=== PATIENT | male | born 1940 | race Caucasian/White ===

== ENCOUNTER 2020-07-27 07:06 | Outpatient (REF) | payer MEDICARE, BC, SELFPAY ==
[2020-07-27 10:42] LABS: MANUAL DIFF FLAG NO
[2020-07-27 10:44] LABS: Basophils Percent Auto 0.5 % (0-2); Eosinophils Absolute Auto 0.1 X10*3/uL (0.0-0.4); Eosinophils Percent Auto 0.9 % (0-4); Hematocrit 37.5 % (42-52); Hemoglobin 12.4 g/dl (14.0-18.0); Imm Gran Abs Auto 0.02 X10*3/uL (0.00-0.03); Imm Gran Pct Auto 0.4 % (0.0-0.4); Lymphocytes Absolute Auto 1.2 X10*3/uL (1.2-4.9); Lymphocytes Percent Auto 22.1 % (20-40); Mean Corpuscular HGB Conc 33.1 g/dl (31.0-36.0); Mean Corpuscular Hemoglobin 31.6 pg (27.0-33.0); Mean Corpuscular Volume 95.7 fL (80-98); Mean Platelet Volume 10.2 fL (9.4-12.4); Monocytes Absolute Auto 0.5 X10*3/uL (0.1-1.2); Monocytes Percent Auto 9.1 % (2-11); Neutrophils Absolute Auto 3.8 X10*3/uL (2.0-8.3); Platelet Count 250 X10*3/uL (160-400); Red Blood Count 3.92 X10*6/uL (4.60-5.80); White Blood Count 5.6 X10*3/uL (4.8-10.8)
[2020-07-27 11:31] LABS: Alanine Aminotransferase 43 U/L (0-40); Albumin Level 4.3 g/dL (3.5-5.0); Alkaline Phosphatase 96 U/L (39-117); Anion Gap 15 (12-20); Aspartate Amino Transferase 26 U/L (5-37); Bilirubin Total 0.5 mg/dL (0.0-1.0); Blood Urea Nitrogen 21 mg/dL (9-16); Calcium 8.9 mg/dL (8.4-10.2); Carbon Dioxide 23 mmol/L (22-29); Chloride 107 mmol/L (96-108); Estimated Glomerular Filt Rate > 60; Glucose Random 133 mg/dL (60-115); Potassium 4.4 mmol/l (3.3-5.1); Sodium 141 mmol/L (135-145); Total Protein 6.9 g/dL (6.5-8.0)
[2020-07-27 11:54] LABS: Prostate Specific Antigen 18.93 ng/mL (<0.05-4.0)
== END 2020-07-27 07:07 | disposition home or self-care (01) ==
LOC: HO.LHD 07:06
PROVIDERS: Visit Provider Internal Medicine Medical Oncology
DX: C61 Malignant neoplasm of prostate (principal); C79.51 Secondary malignant neoplasm of bone
CPT/HCPCS: 36415; 80053; 84153; 85025

== ENCOUNTER → 2020-07-28 08:20 | Outpatient (BNV) | payer MEDICARE, BC, SELFPAY | PROVIDERS: PCP Internal Medicine; Visit Provider Internal Medicine | DX: C61 Malignant neoplasm of prostate (principal); C79.31 Secondary malignant neoplasm of brain; C79.51 Secondary malignant neoplasm of bone | CPT/HCPCS: 99212; 99214; 99215 ==

== ENCOUNTER 2020-08-31 | Outpatient (REF) | payer MEDICARE, BC, SELFPAY ==
[2020-08-31 10:51] LABS: MANUAL DIFF FLAG NO
[2020-08-31 11:00] LABS: Basophils Percent Auto 0.5 % (0-2); Eosinophils Absolute Auto 0.1 X10*3/uL (0.0-0.4); Eosinophils Percent Auto 0.9 % (0-4); Hematocrit 39.4 % (42-52); Hemoglobin 12.6 g/dl (14.0-18.0); Imm Gran Abs Auto 0.02 X10*3/uL (0.00-0.03); Imm Gran Pct Auto 0.4 % (0.0-0.4); Lymphocytes Absolute Auto 1.2 X10*3/uL (1.2-4.9); Lymphocytes Percent Auto 21.8 % (20-40); Mean Corpuscular Volume 96.8 fL (80-98); Mean Platelet Volume 9.6 fL (9.4-12.4); Monocytes Absolute Auto 0.5 X10*3/uL (0.1-1.2); Monocytes Percent Auto 8.7 % (2-11); Neutrophils Absolute Auto 3.7 X10*3/uL (2.0-8.3); Neutrophils Percent Auto 67.7 % (45-73); Platelet Count 252 X10*3/uL (160-400); Red Blood Count 4.07 X10*6/uL (4.60-5.80); Red Cell Distribution Width 14.7 % (11.0-16.0); White Blood Count 5.5 X10*3/uL (4.8-10.8)
[2020-08-31 11:25] LABS: Anion Gap 17 (12-20); Blood Urea Nitrogen 19 mg/dL (9-16); Calcium 9.5 mg/dL (8.4-10.2); Carbon Dioxide 25 mmol/L (22-29); Chloride 105 mmol/L (96-108); Estimated Glomerular Filt Rate > 60; Glucose Random 173 mg/dL (60-115); Potassium 4.6 mmol/l (3.3-5.1); Sodium 142 mmol/L (135-145)
[2020-08-31 11:55] LABS: Prostate Specific Antigen 27.35 ng/mL (<0.05-4.0)
== END 2020-08-31 00:01 | disposition home or self-care (01) ==
LOC: HO.LHD
PROVIDERS: Visit Provider Internal Medicine Medical Oncology
DX: C61 Malignant neoplasm of prostate (principal)
CPT/HCPCS: 36415; 80048; 84153; 85025

== ENCOUNTER 2020-09-11 08:33 | Outpatient (REF) | payer MEDICARE, BC, SELFPAY ==
--- NOTE | 2020-09-11 10:24 | XR_ITS ---
EXAMINATION: XR KNEE AP STANDING CLINICAL INFORMATION: Bilateral knee pain. COMPARISON: None TECHNIQUE: AP bilateral standing view of the knees was obtained. FINDINGS: There is mild reduction in bilateral medial compartment joint space. The lateral compartment joint space is normal. No loose bodies, fracture or soft tissue swelling seen. XR/XR knee standing BI IMPRESSION: Mild degenerative changes medial compartment both knees.
== END 2020-09-11 08:34 | disposition home or self-care (01) ==
LOC: HO.HOSX 08:33
PROVIDERS: Visit Provider Orthopaedic Surgery
DX: M25.562 Pain in left knee (principal); M25.561 Pain in right knee; M25.461 Effusion, right knee
CPT/HCPCS: 73565; 99202

== ENCOUNTER → 2020-09-16 09:35 | Outpatient (BNVA) | payer MEDICARE, BC, SELFPAY | PROVIDERS: PCP Internal Medicine; Visit Provider Internal Medicine | DX: I35.1 Nonrheumatic aortic (valve) insufficiency (principal); I77.810 Thoracic aortic ectasia; C61 Malignant neoplasm of prostate; C79.51 Secondary malignant neoplasm of bone | CPT/HCPCS: 99212 ==

== ENCOUNTER 2020-09-28 08:15 | Outpatient (REF) | payer MEDICARE, BC, SELFPAY ==
[2020-09-28 11:38] LABS: MANUAL DIFF FLAG NO
[2020-09-28 11:46] LABS: Basophils Percent Auto 0.6 % (0-2); Eosinophils Percent Auto 0.2 % (0-4); Hematocrit 38.4 % (42-52); Hemoglobin 12.1 g/dl (14.0-18.0); Imm Gran Abs Auto 0.05 X10*3/uL (0.00-0.03); Imm Gran Pct Auto 0.8 % (0.0-0.4); Lymphocytes Absolute Auto 1.2 X10*3/uL (1.2-4.9); Lymphocytes Percent Auto 18.8 % (20-40); Mean Corpuscular HGB Conc 31.5 g/dl (31.0-36.0); Mean Corpuscular Hemoglobin 30.8 pg (27.0-33.0); Mean Corpuscular Volume 97.7 fL (80-98); Mean Platelet Volume 9.4 fL (9.4-12.4); Monocytes Absolute Auto 0.5 X10*3/uL (0.1-1.2); Monocytes Percent Auto 8.3 % (2-11); Neutrophils Absolute Auto 4.5 X10*3/uL (2.0-8.3); Neutrophils Percent Auto 71.3 % (45-73); Platelet Count 306 X10*3/uL (160-400); Red Blood Count 3.93 X10*6/uL (4.60-5.80); Red Cell Distribution Width 14.6 % (11.0-16.0); White Blood Count 6.3 X10*3/uL (4.8-10.8)
[2020-09-28 12:15] LABS: Alanine Aminotransferase 44 U/L (0-40); Albumin Level 4.4 g/dL (3.5-5.0); Alkaline Phosphatase 95 U/L (39-117); Anion Gap 15 (12-20); Aspartate Amino Transferase 23 U/L (5-37); Bilirubin Total 0.5 mg/dL (0.0-1.0); Blood Urea Nitrogen 24 mg/dL (9-16); Calcium 9.5 mg/dL (8.4-10.2); Carbon Dioxide 27 mmol/L (22-29); Chloride 105 mmol/L (96-108); Estimated Glomerular Filt Rate 59; Glucose Random 153 mg/dL (60-115); Potassium 4.8 mmol/l (3.3-5.1); Sodium 142 mmol/L (135-145); Total Protein 6.9 g/dL (6.5-8.0)
[2020-09-28 12:39] LABS: Prostate Specific Antigen 27.14 ng/mL (<0.05-4.0)
== END 2020-09-28 08:16 | disposition home or self-care (01) ==
LOC: HO.LHD 08:15
PROVIDERS: Visit Provider Internal Medicine
DX: C79.82 Secondary malignant neoplasm of genital organs (principal)
CPT/HCPCS: 36415; 80053; 84153; 85025

== ENCOUNTER 2020-10-20 05:03 | Outpatient (REF) | payer MEDICARE, BC, SELFPAY ==
[2020-10-20 09:44] LABS: MANUAL DIFF FLAG NO
[2020-10-20 09:51] LABS: Basophils Percent Auto 0.5 % (0-2); Eosinophils Absolute Auto 0.1 X10*3/uL (0.0-0.4); Eosinophils Percent Auto 2.9 % (0-4); Hematocrit 37.2 % (42-52); Hemoglobin 11.9 g/dl (14.0-18.0); Imm Gran Abs Auto 0.03 X10*3/uL (0.00-0.03); Imm Gran Pct Auto 0.7 % (0.0-0.4); Lymphocytes Percent Auto 24.3 % (20-40); Mean Corpuscular Hemoglobin 31.1 pg (27.0-33.0); Mean Corpuscular Volume 97.1 fL (80-98); Mean Platelet Volume 9.5 fL (9.4-12.4); Monocytes Absolute Auto 0.3 X10*3/uL (0.1-1.2); Monocytes Percent Auto 6.1 % (2-11); Neutrophils Absolute Auto 2.7 X10*3/uL (2.0-8.3); Neutrophils Percent Auto 65.5 % (45-73); Platelet Count 265 X10*3/uL (160-400); Red Blood Count 3.83 X10*6/uL (4.60-5.80); Red Cell Distribution Width 14.4 % (11.0-16.0); White Blood Count 4.1 X10*3/uL (4.8-10.8)
[2020-10-20 10:24] LABS: Alanine Aminotransferase 38 U/L (0-40); Albumin Level 4.3 g/dL (3.5-5.0); Alkaline Phosphatase 102 U/L (39-117); Anion Gap 12 (12-20); Aspartate Amino Transferase 22 U/L (5-37); Bilirubin Total 0.6 mg/dL (0.0-1.0); Blood Urea Nitrogen 20 mg/dL (9-16); Calcium 8.8 mg/dL (8.4-10.2); Carbon Dioxide 27 mmol/L (22-29); Chloride 106 mmol/L (96-108); Estimated Glomerular Filt Rate > 60; Glucose Random 174 mg/dL (60-115); Sodium 141 mmol/L (135-145); Total Protein 6.5 g/dL (6.5-8.0)
[2020-10-20 11:15] LABS: Prostate Specific Antigen 17.63 ng/mL (<0.05-4.0)
== END 2020-10-20 05:04 | disposition home or self-care (01) ==
LOC: HO.LHD 05:03
PROVIDERS: Visit Provider Internal Medicine
DX: C61 Malignant neoplasm of prostate (principal); Z12.5 Encounter for screening for malignant neoplasm of prostate
CPT/HCPCS: 36415; 80053; 84153; 85025

== ENCOUNTER 2020-11-10 00:52 | Outpatient (REF) | payer MEDICARE, BC, SELFPAY ==
[2020-11-10 10:42] LABS: MANUAL DIFF FLAG NO
[2020-11-10 10:49] LABS: Basophils Percent Auto 0.7 % (0-2); Eosinophils Absolute Auto 0.1 X10*3/uL (0.0-0.4); Eosinophils Percent Auto 2.8 % (0-4); Hematocrit 38.6 % (42-52); Hemoglobin 12.6 g/dl (14.0-18.0); Imm Gran Abs Auto 0.03 X10*3/uL (0.00-0.03); Imm Gran Pct Auto 0.7 % (0.0-0.4); Lymphocytes Absolute Auto 1.1 X10*3/uL (1.2-4.9); Lymphocytes Percent Auto 25.8 % (20-40); Mean Corpuscular HGB Conc 32.6 g/dl (31.0-36.0); Mean Corpuscular Hemoglobin 31.3 pg (27.0-33.0); Mean Corpuscular Volume 95.8 fL (80-98); Mean Platelet Volume 9.6 fL (9.4-12.4); Monocytes Absolute Auto 0.3 X10*3/uL (0.1-1.2); Monocytes Percent Auto 7.5 % (2-11); Neutrophils Absolute Auto 2.7 X10*3/uL (2.0-8.3); Neutrophils Percent Auto 62.5 % (45-73); Platelet Count 300 X10*3/uL (160-400); Red Blood Count 4.03 X10*6/uL (4.60-5.80); Red Cell Distribution Width 14.2 % (11.0-16.0); White Blood Count 4.3 X10*3/uL (4.8-10.8)
[2020-11-10 11:15] LABS: Alanine Aminotransferase 40 U/L (0-40); Albumin Level 4.3 g/dL (3.5-5.0); Alkaline Phosphatase 107 U/L (39-117); Anion Gap 13 (12-20); Aspartate Amino Transferase 25 U/L (5-37); Bilirubin Total 0.6 mg/dL (0.0-1.0); Blood Urea Nitrogen 19 mg/dL (9-16); Calcium 8.7 mg/dL (8.4-10.2); Carbon Dioxide 25 mmol/L (22-29); Chloride 106 mmol/L (96-108); Estimated Glomerular Filt Rate > 60; Glucose Random 148 mg/dL (60-115); Potassium 4.3 mmol/L (3.3-5.1); Sodium 140 mmol/L (135-145); Total Protein 6.5 g/dL (6.5-8.0)
[2020-11-10 11:39] LABS: Prostate Specific Antigen 17.79 ng/mL (<0.05-4.0)
== END 2020-11-10 00:53 | disposition home or self-care (01) ==
LOC: HO.LHD 00:52
PROVIDERS: Visit Provider Internal Medicine
DX: C61 Malignant neoplasm of prostate (principal); Z12.5 Encounter for screening for malignant neoplasm of prostate
CPT/HCPCS: 36415; 80053; 84153; 85025

== ENCOUNTER 2020-12-14 07:18 | Outpatient (REF) | payer MEDICARE, BC, SELFPAY ==
[2020-12-14 10:55] LABS: MANUAL DIFF FLAG NO
[2020-12-14 10:59] LABS: Basophils Percent Auto 0.8 % (0-2); Eosinophils Absolute Auto 0.2 X10*3/uL (0.0-0.4); Eosinophils Percent Auto 3.1 % (0-4); Hematocrit 39.5 % (42-52); Hemoglobin 12.7 g/dl (14.0-18.0); Imm Gran Abs Auto 0.03 X10*3/uL (0.00-0.03); Imm Gran Pct Auto 0.6 % (0.0-0.4); Lymphocytes Absolute Auto 1.5 X10*3/uL (1.2-4.9); Lymphocytes Percent Auto 30.8 % (20-40); Mean Corpuscular HGB Conc 32.2 g/dl (31.0-36.0); Mean Corpuscular Hemoglobin 31.2 pg (27.0-33.0); Mean Corpuscular Volume 97.1 fL (80-98); Mean Platelet Volume 9.9 fL (9.4-12.4); Monocytes Absolute Auto 0.4 X10*3/uL (0.1-1.2); Monocytes Percent Auto 8.9 % (2-11); Neutrophils Absolute Auto 2.7 X10*3/uL (2.0-8.3); Neutrophils Percent Auto 55.8 % (45-73); Platelet Count 309 X10*3/uL (160-400); Red Blood Count 4.07 X10*6/uL (4.60-5.80); Red Cell Distribution Width 13.7 % (11.0-16.0); White Blood Count 4.8 X10*3/uL (4.8-10.8)
[2020-12-14 12:12] LABS: Alanine Aminotransferase 40 U/L (0-40); Albumin Level 4.3 g/dL (3.5-5.0); Alkaline Phosphatase 96 U/L (39-117); Anion Gap 17 (12-20); Aspartate Amino Transferase 28 U/L (5-37); Bilirubin Total 0.3 mg/dL (0.0-1.0); Blood Urea Nitrogen 19 mg/dL (9-16); Calcium 8.9 mg/dL (8.4-10.2); Carbon Dioxide 23 mmol/L (22-29); Chloride 107 mmol/L (96-108); Estimated Glomerular Filt Rate > 60; Glucose Random 161 mg/dL (60-115); Potassium 4.2 mmol/L (3.3-5.1); Sodium 143 mmol/L (135-145); Total Protein 6.8 g/dL (6.5-8.0)
== END 2020-12-14 07:19 | disposition home or self-care (01) ==
LOC: HO.LHD 07:18
PROVIDERS: Visit Provider Internal Medicine
DX: C79.82 Secondary malignant neoplasm of genital organs (principal)
CPT/HCPCS: 36415; 80053; 85025

== ENCOUNTER → 2020-12-18 11:16 | Outpatient (BNVA) | payer MEDICARE, BC, SELFPAY | PROVIDERS: PCP Internal Medicine; Visit Provider Internal Medicine Endocrinology, Diabetes & Metabolism | DX: Z13.89 Encounter for screening for other disorder (principal) | CPT/HCPCS: Q3014 ==

== ENCOUNTER 2020-12-24 07:10 | Outpatient (REF) | payer MEDICARE, BC, SELFPAY ==
[2020-12-24 11:35] LABS: MANUAL DIFF FLAG NO
[2020-12-24 11:45] LABS: Basophils Percent Auto 0.7 % (0-2); Eosinophils Absolute Auto 0.1 X10*3/uL (0.0-0.4); Eosinophils Percent Auto 2.5 % (0-4); Hemoglobin 12.5 g/dl (14.0-18.0); Imm Gran Abs Auto 0.03 X10*3/uL (0.00-0.03); Imm Gran Pct Auto 0.7 % (0.0-0.4); Lymphocytes Absolute Auto 1.3 X10*3/uL (1.2-4.9); Lymphocytes Percent Auto 30.7 % (20-40); Mean Corpuscular HGB Conc 32.1 g/dl (31.0-36.0); Mean Corpuscular Hemoglobin 30.9 pg (27.0-33.0); Mean Corpuscular Volume 96.5 fL (80-98); Mean Platelet Volume 9.9 fL (9.4-12.4); Monocytes Absolute Auto 0.4 X10*3/uL (0.1-1.2); Monocytes Percent Auto 8.3 % (2-11); Neutrophils Absolute Auto 2.5 X10*3/uL (2.0-8.3); Neutrophils Percent Auto 57.1 % (45-73); Platelet Count 282 X10*3/uL (160-400); Red Blood Count 4.04 X10*6/uL (4.60-5.80); Red Cell Distribution Width 13.6 % (11.0-16.0); White Blood Count 4.4 X10*3/uL (4.8-10.8)
[2020-12-24 12:20] LABS: Alanine Aminotransferase 45 U/L (0-40); Albumin Level 4.1 g/dL (3.5-5.0); Alkaline Phosphatase 85 U/L (39-117); Anion Gap 14 (12-20); Aspartate Amino Transferase 29 U/L (5-37); Bilirubin Total 0.4 mg/dL (0.0-1.0); Blood Urea Nitrogen 19 mg/dL (9-16); Calcium 8.4 mg/dL (8.4-10.2); Carbon Dioxide 24 mmol/L (22-29); Chloride 107 mmol/L (96-108); Estimated Glomerular Filt Rate > 60; Glucose Random 173 mg/dL (60-115); Potassium 4.4 mmol/L (3.3-5.1); Sodium 141 mmol/L (135-145); Total Protein 6.6 g/dL (6.5-8.0)
[2020-12-24 12:42] LABS: Free T4 (Free Thyroxine) 0.79 ng/dL (0.71-1.85); Thyroid Stimulating Hormone 4.62 uIU/mL (0.32-4.0)
== END 2020-12-24 07:11 | disposition home or self-care (01) ==
LOC: HO.LHD 07:10
PROVIDERS: Internal Medicine Endocrinology, Diabetes & Metabolism; Visit Provider Internal Medicine
DX: E03.9 Hypothyroidism, unspecified (principal); C61 Malignant neoplasm of prostate
CPT/HCPCS: 36415; 80053; 84439; 84443; 85025

== ENCOUNTER → 2021-01-13 10:07 | Outpatient (REF) | payer MEDICARE, BC, SELFPAY ==
--- NOTE | ~2021-01-13 | NM_ITS ---
EXAMINATION: NM BONE SCAN OF THE WHOLE BODY CLINICAL INFORMATION: Prostate cancer 2000 same, now with pain all over. Right shoulder pain. COMPARISON: The previous bone scan dated 05/26/2020 is available for comparison. Radiographs of the bilateral knees dated 09/11/2020, the chest dated 07/28/2020 and the right shoulder dated 07/28/2020 are available for comparison. TECHNIQUE: Multiple gamma scintillation camera images of the whole body were performed 3 hours following the intravenous administration of 32 mCi Tc-99m MDP. FINDINGS: In the head, no significant abnormalities are present. In the thoracic cage and upper extremities, multiple mildly to moderately intense abnormalities involving multiple ribs, extensive abnormalities in the sternum and medial clavicles bilaterally, a very prominent abnormality diffusely in the right humeral head, coracoid process of the left scapula, and a faint focus laterally in the left humeral head. In the spine, multiple foci of mildly increased activity are present throughout the thoracic and upper lumbar spine with the most prominent abnormality in the spinous process of L3. In the pelvis, mild abnormalities are present in multiple foci in the sacrum and both acetabula and probably diffusely in the left ischium. In the lower extremities, there is a small mild focus of increased activity in the medullary bone of the proximal right femoral shaft. Mildly increased activity is present in the medial compartment of the right knee, likely arthritic. No other definite bony abnormalities are noted. The urinary bladder and faint visualization of both kidneys are noted. Compared to the previous bone scan dated 05/26/2020, multiple new abnormalities are present in the ribs, sternum, and spine and has been a significant increase in size and intensity of the right humeral head lesion. A new abnormalities also present in the proximal shaft of the right femur and there are small new foci of mild intensity in the sacrum. NM/NM bone scan whole body IMPRESSION: Widespread metastatic tumor involvement of bone with progression in the bone scan appearance since 05/26/2020. The most severe abnormalities are in the right humeral head, sternum, and spine.
== END ==
LOC: HO.NUCMED 10:07
PROVIDERS: Visit Provider Internal Medicine
DX: C61 Malignant neoplasm of prostate (principal); C79.51 Secondary malignant neoplasm of bone
CPT/HCPCS: 78306; A9503

== ENCOUNTER 2021-01-21 00:31 | Outpatient (REF) | payer MEDICARE, BC, SELFPAY ==
[2021-01-21 09:54] LABS: MANUAL DIFF FLAG NO
[2021-01-21 09:59] LABS: Basophils Percent Auto 0.4 % (0-2); Eosinophils Absolute Auto 0.1 X10*3/uL (0.0-0.4); Eosinophils Percent Auto 2.1 % (0-4); Hematocrit 38.8 % (42-52); Hemoglobin 12.7 g/dl (14.0-18.0); Imm Gran Abs Auto 0.03 X10*3/uL (0.00-0.03); Imm Gran Pct Auto 0.6 % (0.0-0.4); Lymphocytes Absolute Auto 1.5 X10*3/uL (1.2-4.9); Mean Corpuscular HGB Conc 32.7 g/dl (31.0-36.0); Mean Corpuscular Hemoglobin 31.8 pg (27.0-33.0); Mean Platelet Volume 9.9 fL (9.4-12.4); Monocytes Absolute Auto 0.4 X10*3/uL (0.1-1.2); Monocytes Percent Auto 9.2 % (2-11); Neutrophils Absolute Auto 2.7 X10*3/uL (2.0-8.3); Neutrophils Percent Auto 55.7 % (45-73); Platelet Count 265 X10*3/uL (160-400); Red Cell Distribution Width 13.3 % (11.0-16.0); White Blood Count 4.8 X10*3/uL (4.8-10.8)
[2021-01-21 10:29] LABS: Alanine Aminotransferase 46 U/L (0-40); Albumin Level 4.2 g/dL (3.5-5.0); Alkaline Phosphatase 86 U/L (39-117); Anion Gap 13 (12-20); Aspartate Amino Transferase 27 U/L (5-37); Bilirubin Total 0.5 mg/dL (0.0-1.0); Blood Urea Nitrogen 22 mg/dL (9-16); Calcium 9.3 mg/dL (8.4-10.2); Carbon Dioxide 26 mmol/L (22-29); Chloride 107 mmol/L (96-108); Estimated Glomerular Filt Rate > 60; Glucose Random 150 mg/dL (60-115); Potassium 4.4 mmol/L (3.3-5.1); Sodium 142 mmol/L (135-145); Total Protein 6.5 g/dL (6.5-8.0)
[2021-01-21 10:56] LABS: Prostate Specific Antigen 17.29 ng/mL (<0.05-4.0)
== END 2021-01-21 00:32 | disposition home or self-care (01) ==
LOC: HO.LHD 00:31
PROVIDERS: Visit Provider Internal Medicine
DX: C61 Malignant neoplasm of prostate (principal)
CPT/HCPCS: 36415; 80053; 84153; 85025

== ENCOUNTER 2021-02-15 11:44 | Outpatient (REF) | payer MEDICARE, BC, SELFPAY | END 2021-02-15 11:45 | disposition home or self-care (01) | LOC: HO.HOSX 11:44 | PROVIDERS: Visit Provider Orthopaedic Surgery | DX: M25.561 Pain in right knee (principal); E78.00 Pure hypercholesterolemia, unspecified; E03.9 Hypothyroidism, unspecified; K62.7 Radiation proctitis; C61 Malignant neoplasm of prostate; C79.51 Secondary malignant neoplasm of bone; Z87.891 Personal history of nicotine dependence | CPT/HCPCS: 20610; 99212; J1100 ==

== ENCOUNTER 2021-02-18 01:08 | Outpatient (REF) | payer MEDICARE, BC, SELFPAY ==
[2021-02-18 11:10] LABS: MANUAL DIFF FLAG NO
[2021-02-18 11:23] LABS: Basophils Percent Auto 0.5 % (0-2); Eosinophils Absolute Auto 0.1 X10*3/uL (0.0-0.4); Hematocrit 39.3 % (42-52); Hemoglobin 12.7 g/dl (14.0-18.0); Imm Gran Abs Auto 0.06 X10*3/uL (0.00-0.03); Lymphocytes Absolute Auto 2.1 X10*3/uL (1.2-4.9); Lymphocytes Percent Auto 34.8 % (20-40); Mean Corpuscular HGB Conc 32.3 g/dl (31.0-36.0); Mean Corpuscular Hemoglobin 31.8 pg (27.0-33.0); Mean Corpuscular Volume 98.3 fL (80-98); Mean Platelet Volume 9.6 fL (9.4-12.4); Monocytes Absolute Auto 0.5 X10*3/uL (0.1-1.2); Monocytes Percent Auto 8.5 % (2-11); Neutrophils Absolute Auto 3.1 X10*3/uL (2.0-8.3); Neutrophils Percent Auto 53.2 % (45-73); Platelet Count 334 X10*3/uL (160-400); Red Cell Distribution Width 13.4 % (11.0-16.0); White Blood Count 5.9 X10*3/uL (4.8-10.8)
[2021-02-18 11:39] LABS: Alanine Aminotransferase 77 U/L (0-40); Albumin Level 4.2 g/dL (3.5-5.0); Alkaline Phosphatase 87 U/L (39-117); Anion Gap 16 (12-20); Aspartate Amino Transferase 52 U/L (5-37); Bilirubin Total 0.5 mg/dL (0.0-1.0); Blood Urea Nitrogen 21 mg/dL (9-16); Carbon Dioxide 22 mmol/L (22-29); Chloride 106 mmol/L (96-108); Estimated Glomerular Filt Rate > 60; Glucose Random 123 mg/dL (60-115); Potassium 4.3 mmol/L (3.3-5.1); Sodium 140 mmol/L (135-145); Total Protein 6.9 g/dL (6.5-8.0)
[2021-02-18 12:05] LABS: Prostate Specific Antigen 22.89 ng/mL (<0.05-4.0)
== END 2021-02-18 01:09 | disposition home or self-care (01) ==
LOC: HO.LHD 01:08
PROVIDERS: Visit Provider Internal Medicine
DX: C61 Malignant neoplasm of prostate (principal)
CPT/HCPCS: 36415; 80053; 84153; 85025

== ENCOUNTER → 2021-03-03 09:45 | Outpatient (REF) | payer MEDICARE, BC, SELFPAY ==
--- NOTE | 2021-03-03 09:47 | CA_ITS ---
Transthoracic Echocardiogram Patient (Last, First, Middle): Nixon Morgan, Gender: Male Date of : 1940 Age: 80 Procedure Date: 03/03/2021 Procedure Type: Transthoracic Echocardiogram Location: OP Height: 175.26 cm Weight: 90.72 kg BSA: 2.07 m2 Heart Rate: bpm BP: 122 / 80 mmHg Campus Dean: RYDER Referring MD: Raul Aguayo MD Symptoms: I35.1 - Nonrheumatic aortic (valve) insufficiency Study Quality: Technically Difficult ECG Rhythm: Sinus Conclusions: - 1. Normal LV systolic function 2. Moderate eccentric aortic regurgitation 3. Mildly dilated ascending aorta at 3.8 cm 4. No pericardial effusion Findings Left Ventricle Normal left ventricular size, thickness, and systolic function. The visually estimated ejection fraction is between 55-60%. Diastolic function is indeterminate on the basis of available data. Right Ventricle Normal right ventricular cavity size and systolic function. Atria Both atria are normal in size. There is lipomatous hypertrophy of the interatrial septum. There is no evidence of interatrial shunt. Aortic Valve There is mild calcification of the aortic valve. There is no aortic valve stenosis. There is moderate aortic valve regurgitation. Mitral Valve There is mild anterior and posterior mitral leaflet thickening. There is trace mitral valve regurgitation. There is no mitral valve stenosis. Pulmonic Valve The pulmonic valve was not well visualized. Tricuspid Valve Likely normal tricuspid valve structure and function. Tricuspid regurgitation envelope is inadequate for calculation of right ventricular systolic pressure. Great Vessels The pulmonary artery was not well visualized. There is mild dilatation of the ascending aorta. Venous The inferior vena cava is normal in size and collapses greater than 50% with inspiration. Pericardium/Pleural There is no evidence of pericardial effusion. Prior Study Comparison No significant change compared to prior study dated: 04/22/2020. Measurements M-Mode Liner Measurements Normals - Women/Men AOV Cusps: 2.50 1.5-2.6 cm/m2 2D Linear Measurements IVSd: 0.90 0.6-0.9/0.6-1.0 cm LVIDd: 4.37 3.9-5.3/4.2-5.9 cm LVIDd Index: 2.11 2.4-3.2/2.2-3.1 cm/m2 LVIDs: 3.08 2.0-3.6 cm LVPWd: 0.90 0.7-1.1 cm Ao Root: 3.70 2.1-3.5 cm LA Diam: 3.30 2.7-3.8/3.0-4.0 cm LAIDs Index: 1.59 1.5-2.3 cm/m2 LV Mass: 157.96 67-162/88-224 g LV Mass Index: 76.31 43-95/49-115 g/m2 LVOT Diam: 2.50 3.0+(-)1.3 cm 2D Systolic Function EF 4C: 59.70 >55% EF 2C: 51.30 >55% Mitral Valve MV Pk E: 0.49 MV PK A: 0.63 MV Decel Time: 282.00 E/A: 0.80 E'Lateral: 7.40 E'Medial: 5.22 E/E' Med: 9.30 E/E' Lat: 6.60 PHT: 83.00 MVA PHT: 2.65 Decel [place]: 1.73 Aortic Valve AoV Pk Jameson: 1.38 AoV Mn Jameson: 1.05 AoV VTI: 0.28 AoV Pk Grad: 8.00 Aov Mn Grad: 5.00 LISA Cont.VTI: 2.85 AI Pk Jameson: 4.96 AI [place]: 2.61 LVOT LVOT Pk Jameson: 0.85 LVOT Mn Jameson: 0.60 LVOT VTI: 0.16 LVOT Pk Grad: 3.00 LVOT Mn Grad: 2.00 LVOT Diam: 2.50 LVOT Area: 4.91 Diastolic Function MV Pk E: 0.49 MV Pk A: 0.63 E/A: 0.80 E'Medial: 5.22 E/E' Med: 9.30 E' Laterial: 7.40 E/E' Lat: 6.60 Tricuspid Valve RA Press: 3.00 Great Vessels Aorta Ao Root-2D: 3.70 2.0-3.7 cm Ao Asc: 3.80 2.1-3.4 cm Ao Arch: 2.90 Pulmonary Valve ID Pk Jameson: 1.38 Updated in Other Vendor System with Status of Final Efrain Lucero MD electronically signed on 03/03/2021 4:19:36 PM with status of Final
== END ==
LOC: HO.CARD 09:45
PROVIDERS: PCP Internal Medicine; Visit Provider Internal Medicine
DX: I35.1 Nonrheumatic aortic (valve) insufficiency (principal)
CPT/HCPCS: 93306

== ENCOUNTER → 2021-03-17 09:48 | Outpatient (BNVA) | payer MEDICARE, BC, SELFPAY | PROVIDERS: PCP Internal Medicine; Referring Provider Internal Medicine; Visit Provider Internal Medicine | DX: I35.1 Nonrheumatic aortic (valve) insufficiency (principal); I77.810 Thoracic aortic ectasia; C61 Malignant neoplasm of prostate; C79.51 Secondary malignant neoplasm of bone; K62.7 Radiation proctitis; E78.00 Pure hypercholesterolemia, unspecified; E03.9 Hypothyroidism, unspecified | CPT/HCPCS: 93005; 99212 ==

== ENCOUNTER 2021-03-18 00:44 | Outpatient (REF) | payer MEDICARE, BC, SELFPAY ==
[2021-03-18 11:48] LABS: MANUAL DIFF FLAG NO
[2021-03-18 11:54] LABS: Basophils Percent Auto 0.6 % (0-2); Eosinophils Absolute Auto 0.2 X10*3/uL (0.0-0.4); Eosinophils Percent Auto 3.1 % (0-4); Hematocrit 36.6 % (42-52); Hemoglobin 12.1 g/dl (14.0-18.0); Imm Gran Abs Auto 0.06 X10*3/uL (0.00-0.03); Imm Gran Pct Auto 1.2 % (0.0-0.4); Lymphocytes Absolute Auto 1.2 X10*3/uL (1.2-4.9); Lymphocytes Percent Auto 23.8 % (20-40); Mean Corpuscular HGB Conc 33.1 g/dl (31.0-36.0); Mean Corpuscular Hemoglobin 32.1 pg (27.0-33.0); Mean Corpuscular Volume 97.1 fL (80-98); Mean Platelet Volume 9.6 fL (9.4-12.4); Monocytes Absolute Auto 0.5 X10*3/uL (0.1-1.2); Monocytes Percent Auto 10.1 % (2-11); Neutrophils Percent Auto 61.2 % (45-73); Platelet Count 280 X10*3/uL (160-400); Red Blood Count 3.77 X10*6/uL (4.60-5.80); Red Cell Distribution Width 13.2 % (11.0-16.0); White Blood Count 4.8 X10*3/uL (4.8-10.8)
[2021-03-18 12:22] LABS: Alanine Aminotransferase 32 U/L (0-40); Albumin Level 4.1 g/dL (3.5-5.0); Alkaline Phosphatase 91 U/L (39-117); Anion Gap 14 (12-20); Aspartate Amino Transferase 27 U/L (5-37); Bilirubin Total 0.5 mg/dL (0.0-1.0); Blood Urea Nitrogen 18 mg/dL (9-16); Calcium 9.3 mg/dL (8.4-10.2); Carbon Dioxide 24 mmol/L (22-29); Chloride 106 mmol/L (96-108); Estimated Glomerular Filt Rate > 60; Glucose Random 121 mg/dL (60-115); Potassium 4.5 mmol/L (3.3-5.1); Sodium 139 mmol/L (135-145); Total Protein 6.4 g/dL (6.5-8.0)
[2021-03-18 12:51] LABS: Prostate Specific Antigen 27.07 ng/mL (<0.05-4.0)
== END 2021-03-18 00:45 | disposition home or self-care (01) ==
LOC: HO.LHD 00:44
PROVIDERS: Visit Provider Internal Medicine
DX: C79.82 Secondary malignant neoplasm of genital organs (principal)
CPT/HCPCS: 36415; 80053; 84153; 85025

== ENCOUNTER 2021-03-22 10:00 | Outpatient (REF) | payer MEDICARE, BC, SELFPAY ==
--- NOTE | ~2021-03-22 | CT_ITS ---
EXAMINATION: CT CHEST, ABDOMEN AND PELVIS WITHOUT IV CONTRAST CLINICAL INFORMATION: Prostate cancer. Restaging. COMPARISON: Previous bone scan December 2020 and chest CTA March 2019, and PET/CT September 2017 TECHNIQUE: Axial images through the chest, abdomen and pelvis without IV and following oral contrast. Sagittal and coronal reconstructions on the technologist workstation were performed. Patient dose: 796 mGy-cm. This CT examination was performed using dose optimization techniques as appropriate, variously including the following: *Automated exposure control *Adjustment of mA and/or kV according to patient size (this includes techniques or standardized protocols for targeted exams where dose is matched to indication/reason for exam; i.e. extremities or head) *Use of iterative reconstruction technique FINDINGS: CHEST: There is mild biapical pleural-parenchymal scarring. There is a 4 mm right lower lobe nodule axial image 41 series 4 that is new. The lungs are otherwise clear. The previously identified left lower lobe pneumonia has resolved. There are no enlarged hilar or mediastinal lymph nodes. The heart does not appear enlarged. The thoracic aorta is normal in caliber. There is no pericardial effusion. There is no pleural effusion. There is left axillary lymphadenopathy. Lymph nodes nodes are upper normal measuring 1 cm. This is similar to previous chest CTA from 2019. No chest wall mass is seen. ABDOMEN AND PELVIS: There is a 1 cm low-attenuation lesion in the left lobe of the liver axial image 51 series . This is stable from previous exams and has low Hounsfield units measuring 16 without contrast. This may represent a cyst. There is a new lesion in the central left lobe of the liver that measures 3 cm. Hounsfield units without contrast measure 40 not compatible with a benign appearance worrisome for metastatic disease. No other liver lesion is seen. There are gallstones in the gallbladder. The spleen, pancreas, adrenal glands and kidneys are unremarkable. The bladder is not full. The prostate gland has been removed. There is low-attenuation wall thickening of the rectum. This may be related to radiation therapy. There is diverticulosis of the colon. Small and large bowel is otherwise unremarkable. Stomach is unremarkable. There is evidence of atherosclerotic disease. There is mild dilatation of the abdominal aorta measuring 2 x 2.5 cm in transverse dimension. This is stable from previous PET/CT scan from 2018. There is no ascites. There is no adenopathy. There are bilateral inguinal hernias containing fat. There is diffuse sclerotic bone disease. No fracture is seen. This appears slightly increased in the sternum compared to PET/CT scan September 2017. Otherwise, this does not appear appreciably changed. CT/CT abdomen pelvis wo con IMPRESSION: CHEST: New 4 mm right lower lobe nodule. Prominent left axillary lymph nodes similar to previous chest CTA from 2019. The previously identified left lower lobe pneumonia has resolved. ABDOMEN AND PELVIS: New 3 cm low-attenuation lesion in the central left lobe of the liver worrisome for metastatic disease. Stable smaller 1 cm low-attenuation liver lesion probably representing a complex cyst. Gallstones. Diverticulosis of the colon. Stable mild dilatation of the abdominal aorta.
== END 2021-03-22 10:01 | disposition home or self-care (01) ==
LOC: HO.CT 10:00
PROVIDERS: Visit Provider Internal Medicine
DX: C61 Malignant neoplasm of prostate (principal); C79.51 Secondary malignant neoplasm of bone
CPT/HCPCS: 71250; 74176

== ENCOUNTER 2021-03-24 13:30 | Outpatient (REF) | payer MEDICARE, BC, SELFPAY ==
--- NOTE | ~2021-03-24 | MR_ITS ---
EXAMINATION: MR ABDOMEN WITHOUT AND WITH CONTRAST CLINICAL INFORMATION: Liver lesion COMPARISON: CT 03/22/2021 TECHNIQUE: MR abdomen was performed without and with use of 10 mL intravenous Gadavist gadolinium contrast. Postcontrast images are performed in multiphase dynamic sequences. Imaging was performed in 3 planes. FINDINGS: LUNG BASES: The visualized lung bases are unremarkable. LIVER, GALLBLADDER, AND BILIARY TREE: Corresponding to the lesion of concern centrally in the left lobe of liver, there is a well-circumscribed 2.6 x 3.7 cm hyperintense T2 nodule which shows progressive nodular peripheral enhancement on postcontrast images consistent with a benign hepatic hemangioma. In retrospect, the finding was smaller but appreciable on the prior study 04/01/2019 and the prior study 03/28/2019 although smaller in size at that time. There is a 1.1 cm cyst anteriorly in the left lobe of liver which is been stable across multiple prior studies. No suspicious or concerning focal liver lesion seen. The gallbladder is unremarkable with no evidence of gallbladder wall thickening, or obvious pericholecystic inflammatory changes. PANCREAS: There is mild irregularity of the pancreatic duct but no solid pancreatic mass seen. SPLEEN: Normal. ADRENAL GLANDS: Normal. KIDNEYS AND URETERS: Tiny T2 bright nonenhancing simple renal cysts are seen , the largest 7 mm in the lower pole the right kidney; no imaging follow-up recommended. No hydronephrosis or solid mass. GASTROINTESTINAL TRACT: No bowel obstruction. No ascites or fluid collection. ABDOMINAL WALL: No significant hernia is appreciated. LYMPH NODES: No lymphadenopathy. VASCULAR: Normal caliber aorta. OSSEOUS STRUCTURES: There is diffusely heterogeneous bone marrow signal consistent with multifocal osseous metastatic disease as demonstrated on the prior bone scan. MR/MR abdomen wo/w con IMPRESSION: 3.7 x 2.6 cm liver lesion in segment 4 of the liver has MRI signal and enhancement characteristics typical for a hepatic hemangioma. No hepatic metastatic disease seen. Diffuse osseous metastatic disease again noted.
== END 2021-03-24 13:31 | disposition home or self-care (01) ==
LOC: HO.MRI 13:30
PROVIDERS: PCP Internal Medicine; Visit Provider Internal Medicine
DX: R16.0 Hepatomegaly, not elsewhere classified (principal); C61 Malignant neoplasm of prostate; C79.51 Secondary malignant neoplasm of bone
CPT/HCPCS: 74183; A9585

== ENCOUNTER → 2021-04-12 12:35 | Outpatient (BNVA) | payer MEDICARE, BC, SELFPAY | PROVIDERS: PCP Internal Medicine; Visit Provider Orthopaedic Surgery | DX: M17.11 Unilateral primary osteoarthritis, right knee (principal) | CPT/HCPCS: 20610; 99212; J7318 ==

== ENCOUNTER 2021-04-15 07:19 | Outpatient (REF) | payer MEDICARE, BC, SELFPAY ==
[2021-04-15 12:14] LABS: MANUAL DIFF FLAG NO
[2021-04-15 12:17] LABS: Basophils Percent Auto 0.6 % (0-2); Eosinophils Absolute Auto 0.2 X10*3/uL (0.0-0.4); Eosinophils Percent Auto 3.5 % (0-4); Hematocrit 38.6 % (42-52); Hemoglobin 12.4 g/dl (14.0-18.0); Imm Gran Abs Auto 0.05 X10*3/uL (0.00-0.03); Lymphocytes Absolute Auto 1.3 X10*3/uL (1.2-4.9); Mean Corpuscular HGB Conc 32.1 g/dl (31.0-36.0); Mean Corpuscular Hemoglobin 31.9 pg (27.0-33.0); Mean Corpuscular Volume 99.2 fL (80-98); Mean Platelet Volume 9.8 fL (9.4-12.4); Monocytes Absolute Auto 0.6 X10*3/uL (0.1-1.2); Monocytes Percent Auto 11.7 % (2-11); Neutrophils Absolute Auto 2.7 X10*3/uL (2.0-8.3); Neutrophils Percent Auto 56.2 % (45-73); Platelet Count 292 X10*3/uL (160-400); Red Blood Count 3.89 X10*6/uL (4.60-5.80); Red Cell Distribution Width 13.5 % (11.0-16.0); White Blood Count 4.9 X10*3/uL (4.8-10.8)
[2021-04-15 12:30] LABS: Alanine Aminotransferase 30 U/L (0-40); Albumin Level 4.2 g/dL (3.5-5.0); Alkaline Phosphatase 112 U/L (39-117); Anion Gap 14 (12-20); Aspartate Amino Transferase 23 U/L (5-37); Bilirubin Total 0.4 mg/dL (0.0-1.0); Blood Urea Nitrogen 20 mg/dL (9-16); Calcium 9.4 mg/dL (8.4-10.2); Carbon Dioxide 25 mmol/L (22-29); Chloride 107 mmol/L (96-108); Estimated Glomerular Filt Rate > 60; Glucose Random 103 mg/dL (60-115); Potassium 3.9 mmol/L (3.3-5.1); Sodium 142 mmol/L (135-145); Total Protein 6.8 g/dL (6.5-8.0)
[2021-04-15 12:52] LABS: Free T4 (Free Thyroxine) 1.05 ng/dL (0.71-1.85); Thyroid Stimulating Hormone 2.08 uIU/mL (0.32-4.0)
== END 2021-04-15 07:20 | disposition home or self-care (01) ==
LOC: HO.LHD 07:19
PROVIDERS: Internal Medicine Endocrinology, Diabetes & Metabolism; Visit Provider Internal Medicine
DX: C61 Malignant neoplasm of prostate (principal); E03.9 Hypothyroidism, unspecified
CPT/HCPCS: 36415; 80053; 84153; 84439; 84443; 85025

== ENCOUNTER 2021-05-06 11:31 | Day surgery (SDC) | payer MEDICARE, BC, SELFPAY ==
--- NOTE | ~2021-05-06 | CT_ITS ---
PROCEDURE: CT GUIDED BIOPSY, BONE CT GUIDED NEEDLE PLACEMENT CLINICAL INFORMATION: Prostate cancer for staging. Sclerotic and lytic lesions seen throughout the entire skeletal system. COMPARISON: MR abdomen 03/24/2021, bone scan 01/13/2021 TECHNIQUE: Following explaining CT fluoroscopy-guided right posterior iliac bone marrow biopsy procedure, benefits and risk, a written consent was obtained. Patient was placed prone on fluoroscopy table, and preliminary imaging was obtained through the posterior pelvis. Markers were placed along the posterior pelvis, and repeat CT imaging was obtained. An optimal site was selected from the placed marker and marked on the skin. The area was then cleaned and draped in the usual sterile manner. 1% lidocaine was injected at puncture site. An 18-gauge guide needle was advanced from the skin following a small skin incision to the level of the periosteum and extended into the bone marrow via a mechanical drill. Coaxially, an 18-gauge needle was then advanced and drilled into the bone marrow, and a 2 pass core biopsy was obtained. Postprocedure, the guide needle was withdrawn, and complete hemostasis achieved at puncture site. There was no bleeding seen. Simple dressing applied postprocedure. Conscious sedation and patient monitoring was performed by our nursing and radiologist. This CT examination was performed using dose optimization techniques as appropriate, variously including the following: *Automated exposure control *Adjustment of mA and/or kV according to patient size (this includes techniques or standardized protocols for targeted exams where dose is matched to indication/reason for exam; i.e. extremities or head) *Use of iterative reconstruction technique DLP: 325 mGy-cm FINDINGS: On preliminary CT imaging, there are extensive sclerotic and lytic lesions seen throughout the entire skeletal system including the pelvic bones and the sacrum. CT fluoroscopy-guided 2 pass core biopsy was performed with an 18-gauge needle through the posterior iliac bone marrow. There was no bleeding at all. Sample collected was sent to the lab in formalin solution. CT/CT guided needle placement IMPRESSION: Successful CT fluoroscopy-guided right posterior iliac bone marrow biopsy performed.
[2021-05-06 11:37] VITALS: BMI 29.1
[2021-05-06 12:28] LABS: MANUAL DIFF FLAG NO
[2021-05-06 12:31] LABS: Basophils Percent Auto 0.3 % (0-2); Eosinophils Absolute Auto 0.1 X10*3/uL (0.0-0.4); Eosinophils Percent Auto 1.8 % (0-4); Hematocrit 35.8 % (42-52); Hemoglobin 11.9 g/dl (14.0-18.0); Imm Gran Abs Auto 0.05 X10*3/uL (0.00-0.03); Imm Gran Pct Auto 1.3 % (0.0-0.4); Lymphocytes Absolute Auto 1.1 X10*3/uL (1.2-4.9); Mean Corpuscular HGB Conc 33.2 g/dl (31.0-36.0); Mean Corpuscular Hemoglobin 32.1 pg (27.0-33.0); Mean Corpuscular Volume 96.5 fL (80-98); Mean Platelet Volume 9.4 fL (9.4-12.4); Monocytes Absolute Auto 0.4 X10*3/uL (0.1-1.2); Monocytes Percent Auto 10.7 % (2-11); Neutrophils Absolute Auto 2.3 X10*3/uL (2.0-8.3); Neutrophils Percent Auto 58.9 % (45-73); Platelet Count 250 X10*3/uL (160-400); Red Blood Count 3.71 X10*6/uL (4.60-5.80); Red Cell Distribution Width 13.1 % (11.0-16.0); White Blood Count 3.9 X10*3/uL (4.8-10.8)
[2021-05-06 12:46] LABS: INTERNATIONAL NORM RATIO 0.9 (0.9-1.1); Prothrombin Time 10.6 SEC (9.9-13.0)
[2021-05-06 12:48] LABS: Partial Thromboplastin Time 38.9 SEC (24.1-38.0)
[2021-05-06 13:50] VITALS: BP 149/68; PULSE 67; RESP 18; TEMP 36.3; O2SAT 97
[2021-05-06 14:05] VITALS: BP 151/62; PULSE 69; RESP 18; O2SAT 97
[2021-05-06 14:20] VITALS: BP 136/69; PULSE 71; RESP 18; O2SAT 97
[2021-05-06 14:35] VITALS: BP 140/75; PULSE 80; RESP 18; O2SAT 97
[2021-05-06 14:50] VITALS: BP 159/76; PULSE 82; RESP 18; TEMP 36.3; O2SAT 96
== END 2021-05-06 15:15 | disposition home or self-care (01) ==
PROVIDERS: Radiology Diagnostic Radiology; PCP Internal Medicine; Visit Provider Radiology Diagnostic Radiology
DX: C61 Malignant neoplasm of prostate (principal); C79.51 Secondary malignant neoplasm of bone; Z79.899 Other long term (current) drug therapy
CPT/HCPCS: 20225; 36415; 77012; 85025; 85610; 85730; 88307; 88311; 88342; 99152; J2250; J3010

== ENCOUNTER 2021-05-13 06:35 | Outpatient (REF) | payer MEDICARE, BC, SELFPAY ==
[2021-05-13 10:32] LABS: MANUAL DIFF FLAG NO
[2021-05-13 10:35] LABS: Basophils Percent Auto 0.7 % (0-2); Eosinophils Absolute Auto 0.1 X10*3/uL (0.0-0.4); Hematocrit 39.8 % (42-52); Hemoglobin 12.9 g/dl (14.0-18.0); Imm Gran Abs Auto 0.06 X10*3/uL (0.00-0.03); Imm Gran Pct Auto 1.3 % (0.0-0.4); Lymphocytes Absolute Auto 1.3 X10*3/uL (1.2-4.9); Lymphocytes Percent Auto 27.8 % (20-40); Mean Corpuscular HGB Conc 32.4 g/dl (31.0-36.0); Mean Corpuscular Hemoglobin 32.1 pg (27.0-33.0); Mean Platelet Volume 9.7 fL (9.4-12.4); Monocytes Absolute Auto 0.4 X10*3/uL (0.1-1.2); Monocytes Percent Auto 9.7 % (2-11); Neutrophils Absolute Auto 2.7 X10*3/uL (2.0-8.3); Neutrophils Percent Auto 58.5 % (45-73); Platelet Count 273 X10*3/uL (160-400); Red Blood Count 4.02 X10*6/uL (4.60-5.80); Red Cell Distribution Width 13.2 % (11.0-16.0); White Blood Count 4.5 X10*3/uL (4.8-10.8)
[2021-05-13 11:23] LABS: Alanine Aminotransferase 31 U/L (0-40); Albumin Level 4.2 g/dL (3.5-5.0); Alkaline Phosphatase 102 U/L (39-117); Anion Gap 14 (12-20); Aspartate Amino Transferase 23 U/L (5-37); Bilirubin Total 0.4 mg/dL (0.0-1.0); Blood Urea Nitrogen 16 mg/dL (9-16); Calcium 8.9 mg/dL (8.4-10.2); Carbon Dioxide 25 mmol/L (22-29); Chloride 107 mmol/L (96-108); Estimated Glomerular Filt Rate > 60; Glucose Random 169 mg/dL (60-115); Potassium 4.5 mmol/L (3.3-5.1); Sodium 141 mmol/L (135-145); Total Protein 6.7 g/dL (6.5-8.0)
== END 2021-05-13 06:36 | disposition home or self-care (01) ==
LOC: HO.LHD 06:35
PROVIDERS: Visit Provider Internal Medicine
DX: C61 Malignant neoplasm of prostate (principal); C77.9 Secondary and unspecified malignant neoplasm of lymph node, unspecified
CPT/HCPCS: 36415; 80053; 85025

== ENCOUNTER 2021-05-25 08:28 | Outpatient (REF) | payer MEDICARE, BC, SELFPAY ==
[2021-05-25 11:05] LABS: Hematocrit 37.5 % (42-52); Hemoglobin 12.3 g/dl (14.0-18.0); Mean Corpuscular HGB Conc 32.8 g/dl (31.0-36.0); Mean Corpuscular Volume 97.7 fL (80-98); Mean Platelet Volume 10.1 fL (9.4-12.4); Platelet Count 211 X10*3/uL (160-400); Red Blood Count 3.84 X10*6/uL (4.60-5.80); Red Cell Distribution Width 13.2 % (11.0-16.0)
[2021-05-25 11:12] LABS: INTERNATIONAL NORM RATIO 0.9 (0.9-1.1); Prothrombin Time 9.7 SEC (9.9-13.0)
[2021-05-25 11:20] LABS: WBC ABN SCTR FOR CBC 1
[2021-05-25 11:24] LABS: Alanine Aminotransferase 30 U/L (0-40); Albumin Level 4.2 g/dL (3.5-5.0); Alkaline Phosphatase 121 U/L (39-117); Anion Gap 14 (12-20); Aspartate Amino Transferase 21 U/L (5-37); Bilirubin Total 0.7 mg/dL (0.0-1.0); Blood Urea Nitrogen 17 mg/dL (9-16); Calcium 9.7 mg/dL (8.4-10.2); Carbon Dioxide 26 mmol/L (22-29); Chloride 103 mmol/L (96-108); Estimated Glomerular Filt Rate > 60; Glucose Random 168 mg/dL (60-115); Potassium 4.4 mmol/L (3.3-5.1); Sodium 139 mmol/L (135-145); Total Protein 6.7 g/dL (6.5-8.0)
[2021-05-25 11:32] LABS: Band Neutrophils Percent 16 % (3-5); Eosinophils Percent Manual 1 % (0-4); Lymphocytes Percent Manual 12 % (20-40); Monocytes Percent Manual 2 % (2-11); Neutrophils Percent Manual 69 % (45-73)
[2021-05-25 11:34] LABS: Ovalocytes 1+ (5-14) /OIF; Tear Drop Cells 1+ (0-2) /OIF
[2021-05-25 11:35] LABS: Large Platelet PRESENT; Platelet Estimate NORMAL (NORMAL); Platelet Morphology Comment NOTED; RBC Morphology NOTED
[2021-05-25 11:36] LABS: Eosinophils Absolute Manual 0.1 X10*3/UL (0.0-0.8); Lymphocytes Absolute Manual 0.9 X10*3/uL (0.6-4.8); Monocytes Absolute Manual 0.2 X10*3/uL (0.0-1.2); Neutrophils Absolute Manual 6.5 X10*3/uL (2.2-7.9); White Blood Count 7.6 X10*3/uL (4.8-10.8)
== END 2021-05-25 08:29 | disposition home or self-care (01) ==
LOC: HO.LHD 08:28
PROVIDERS: Visit Provider Internal Medicine
DX: C61 Malignant neoplasm of prostate (principal)
CPT/HCPCS: 36415; 80053; 85007; 85025; 85027; 85610

== ENCOUNTER 2021-05-27 09:00 | Day surgery (SDC) | payer MEDICARE, BC, SELFPAY ==
--- NOTE | ~2021-05-27 | IR_ITS ---
PROCEDURE: PORT-A-CATH PLACEMENT CLINICAL INFORMATION: Prostate cancer on chemotherapy. COMPARISON: None TECHNIQUE: Procedure and risks and benefits including bleeding, infection and pneumothorax were discussed with the patient and informed consent was obtained. All elements of maximal sterile barrier technique followed including use of cap, mask, sterile gown, sterile gloves, a sterile full body drape and hand hygiene. Also followed skin preparation with 2% chlorhexidine for cutaneous antisepsis, and sterile ultrasound preparation with sterile gel and probe cover when applicable. The right neck and upper chest were prepped and draped in the usual sterile fashion. The skin and soft tissues were anesthetized with 1% lidocaine plain. Using ultrasound guidance and a 5 [place] micropuncture system, right internal jugular vein access was obtained. Over a 0.018 wire, a 5 [place] dilator was positioned in the SVC. The skin and soft tissues of the right upper anterior chest were anesthetized with 1% lidocaine plain. A small incision was made. Using blunt dissection, a subcutaneous pocket was created. A subcutaneous tunnel from the chest to the neck incision was anesthetized with 1% lidocaine plain. Using a tunneler, a 6.6 [place] single-lumen catheter was tunneled from the chest to the neck incision. The catheter was attached to the port. The port and catheter were flushed. The port was positioned in the subcutaneous pocket and secured using two 2-0 nonabsorbable sutures. A 0.035 guidewire was advanced through the 5 [place] dilator into the IVC. 5 [place] dilator was exchanged for a 7 [place] peel-away sheath. Using bent wire technique, catheter length was estimated and the catheter was cut. Catheter length is 22 cm. The catheter was fed through the peel-away sheath. The neck incision was closed using a 4-0 absorbable subcuticular suture. The chest incision was closed using three 3-0 absorbable interrupted sutures followed by a running absorbable 4-0 subcuticular suture. The port was accessed. The port had good blood return, flushed easily instilled with 5 mL heparin 100 unit per mL solution. Real-time ultrasound guidance was used to document vein patency and for needle entry. A formal ultrasound picture was recorded. Patient received Versed 1 mg and fentanyl 50 mcg intravenously during the procedure. TOTAL SEDATION TIME: 33 minutes. DAP: 147 cGy-cm2 FLUOROSCOPY TIME: 0.5 minutes. SAVED FLUOROSCOPIC IMAGE: 1 FINDINGS: There is a right internal jugular port with tip projecting over the cavoatrial junction. IR/IR cvc insert tunnel w prt/instrument person IMPRESSION: Right internal jugular 6.6 [place] Dignity Port-A-Cath placement.
[2021-05-27 09:19] VITALS: BP 139/85; PULSE 90; RESP 18; TEMP 36.8; O2SAT 97
[2021-05-27 09:20] VITALS: BMI 29.5
[2021-05-27 09:23] VITALS: BP 139/85; PULSE 97; RESP 18; TEMP 36.8; O2SAT 97
[2021-05-27 12:21] VITALS: BP 138/68; PULSE 74; RESP 18; TEMP 36.6; O2SAT 96
[2021-05-27 12:48] VITALS: BP 139/72; PULSE 86; RESP 18; O2SAT 96
--- NOTE | 2021-05-27 12:58 | HO.RADPN ---
RADIOLOGY Narrative Narrative: Right IJ 6.6 Fr Dignity portacath placed. Tip at cavoatrial junction,
[2021-05-27 13:17] VITALS: BP 137/77; PULSE 92; RESP 16; TEMP 36.3; O2SAT 97
== END 2021-05-27 14:36 | disposition home or self-care (01) ==
PROVIDERS: PCP Internal Medicine; Visit Provider Radiology Diagnostic Radiology
DX: C61 Malignant neoplasm of prostate (principal); C79.51 Secondary malignant neoplasm of bone
CPT/HCPCS: 36561; 76937; 99152; 99153; C1769; C1788; J0690; J1642; J2250; J3010

== ENCOUNTER 2021-06-01 06:36 | Outpatient (REF) | payer MEDICARE, BC, SELFPAY ==
[2021-06-01 10:56] LABS: Hematocrit 35.1 % (42-52); Hemoglobin 11.2 g/dl (14.0-18.0); Mean Corpuscular HGB Conc 31.9 g/dl (31.0-36.0); Mean Corpuscular Hemoglobin 31.7 pg (27.0-33.0); Mean Corpuscular Volume 99.4 fL (80-98); Mean Platelet Volume 9.2 fL (9.4-12.4); NRBC Pct Auto 0.3 /100WBC (0.0-0.2); Platelet Count 158 X10*3/uL (160-400); Red Blood Count 3.53 X10*6/uL (4.60-5.80); Red Cell Distribution Width 13.4 % (11.0-16.0); White Blood Count 16.7 X10*3/uL (4.8-10.8)
[2021-06-01 11:35] LABS: Alanine Aminotransferase 27 U/L (0-40); Albumin Level 4.1 g/dL (3.5-5.0); Alkaline Phosphatase 123 U/L (39-117); Anion Gap 14 (12-20); Aspartate Amino Transferase 20 U/L (5-37); Atypical Lymph Absolute Manual 0.2 x10*3/uL; Atypical Lymphs Percent Manual 1 % (0-6); Band Neutrophils Percent 11 % (3-5); Bilirubin Total 0.4 mg/dL (0.0-1.0); Blood Urea Nitrogen 18 mg/dL (9-16); Calcium 8.8 mg/dL (8.4-10.2); Carbon Dioxide 25 mmol/L (22-29); Chloride 106 mmol/L (96-108); Estimated Glomerular Filt Rate > 60; Glucose Random 161 mg/dL (60-115); Lymphocytes Absolute Manual 1.7 X10*3/uL (0.6-4.8); Lymphocytes Percent Manual 10 % (20-40); Metamyelocytes Absolute 0.2 X10*3/uL; Metamyelocytes Percent 1 %; Monocytes Absolute Manual 0.3 X10*3/uL (0.0-1.2); Monocytes Percent Manual 2 % (2-11); Neutrophils Absolute Manual 14.4 X10*3/uL (2.2-7.9); Neutrophils Percent Manual 75 % (45-73); Potassium 3.8 mmol/L (3.3-5.1); Sodium 141 mmol/L (135-145); Total Protein 6.4 g/dL (6.5-8.0)
[2021-06-01 11:36] LABS: Macrocytosis 1+ (5-14) /OIF; Platelet Estimate NORMAL (NORMAL); Platelet Morphology Comment NORMAL; RBC Morphology NOTED
== END 2021-06-01 06:37 | disposition home or self-care (01) ==
LOC: HO.LHD 06:36
PROVIDERS: Visit Provider Internal Medicine Medical Oncology
DX: C61 Malignant neoplasm of prostate (principal)
CPT/HCPCS: 36415; 80053; 85007; 85025; 85027

== ENCOUNTER 2021-06-08 07:17 | Outpatient (REF) | payer MEDICARE, BC, SELFPAY ==
[2021-06-08 11:01] LABS: Hematocrit 36.9 % (42-52); Hemoglobin 12.1 g/dl (14.0-18.0); Mean Corpuscular HGB Conc 32.8 g/dl (31.0-36.0); Mean Corpuscular Hemoglobin 32.3 pg (27.0-33.0); Mean Corpuscular Volume 98.4 fL (80-98); Mean Platelet Volume 9.4 fL (9.4-12.4); NRBC Pct Auto 0.4 /100WBC (0.0-0.2); Platelet Count 240 X10*3/uL (160-400); Red Blood Count 3.75 X10*6/uL (4.60-5.80); White Blood Count 7.8 X10*3/uL (4.8-10.8)
[2021-06-08 11:15] LABS: Alanine Aminotransferase 27 U/L (0-40); Albumin Level 4.3 g/dL (3.5-5.0); Alkaline Phosphatase 110 U/L (39-117); Anion Gap 15 (12-20); Aspartate Amino Transferase 21 U/L (5-37); Bilirubin Total 0.6 mg/dL (0.0-1.0); Blood Urea Nitrogen 21 mg/dL (9-16); Calcium 9.5 mg/dL (8.4-10.2); Carbon Dioxide 22 mmol/L (22-29); Chloride 109 mmol/L (96-108); Estimated Glomerular Filt Rate > 60; Glucose Random 139 mg/dL (60-115); Potassium 3.9 mmol/L (3.3-5.1); Sodium 142 mmol/L (135-145); Total Protein 6.7 g/dL (6.5-8.0)
[2021-06-08 11:35] LABS: Band Neutrophils Percent 7 % (3-5); Basophils Abs Manual 0.1 X10*3/uL (0.0-0.3); Basophils Percent Manual 1 % (0-1); Lymphocytes Absolute Manual 1.2 X10*3/uL (0.6-4.8); Lymphocytes Percent Manual 16 % (20-40); Monocytes Absolute Manual 0.5 X10*3/uL (0.0-1.2); Monocytes Percent Manual 6 % (2-11); Neutrophils Percent Manual 70 % (45-73)
[2021-06-08 11:36] LABS: Platelet Estimate NORMAL (NORMAL); Platelet Morphology Comment NORMAL; RBC Morphology NORMAL
== END 2021-06-08 07:18 | disposition home or self-care (01) ==
LOC: HO.LHD 07:17
PROVIDERS: Visit Provider Internal Medicine
DX: C61 Malignant neoplasm of prostate (principal)
CPT/HCPCS: 36415; 80053; 85007; 85025; 85027

== ENCOUNTER → 2021-06-14 09:49 | Outpatient (BNVA) | payer MEDICARE, BC, SELFPAY | PROVIDERS: Visit Provider Orthopaedic Surgery | DX: M17.11 Unilateral primary osteoarthritis, right knee (principal); M72.2 Plantar fascial fibromatosis | CPT/HCPCS: 20550; 20605; 99212; J1100 ==

== ENCOUNTER 2021-06-15 07:04 | Outpatient (REF) | payer MEDICARE, BC, SELFPAY ==
[2021-06-15 10:26] LABS: Hematocrit 34.6 % (42-52); Hemoglobin 11.3 g/dl (14.0-18.0); Mean Corpuscular HGB Conc 32.7 g/dl (31.0-36.0); Mean Corpuscular Hemoglobin 32.3 pg (27.0-33.0); Mean Corpuscular Volume 98.9 fL (80-98); Platelet Count 144 X10*3/uL (160-400)
[2021-06-15 10:33] LABS: WBC ABN SCTR FOR CBC 1
[2021-06-15 11:02] LABS: Band Neutrophils Percent 22 % (3-5); Lymphocytes Percent Manual 17 % (20-40); Monocytes Percent Manual 4 % (2-11); Neutrophils Percent Manual 57 % (45-73)
[2021-06-15 11:06] LABS: Macrocytosis 1+ (5-14) /OIF; Platelet Estimate SLIGHTLY DECREASED (NORMAL); Platelet Morphology Comment NORMAL; RBC Morphology NOTED
[2021-06-15 11:07] LABS: Lymphocytes Absolute Manual 1.4 X10*3/uL (0.6-4.8); Monocytes Absolute Manual 0.3 X10*3/uL (0.0-1.2); Neutrophils Absolute Manual 6.4 X10*3/uL (2.2-7.9); White Blood Count 8.1 X10*3/uL (4.8-10.8)
[2021-06-15 11:13] LABS: Alanine Aminotransferase 36 U/L (0-40); Albumin Level 4.3 g/dL (3.5-5.0); Alkaline Phosphatase 116 U/L (39-117); Anion Gap 14 (12-20); Aspartate Amino Transferase 19 U/L (5-37); Bilirubin Total 0.4 mg/dL (0.0-1.0); Blood Urea Nitrogen 27 mg/dL (9-16); Calcium 9.6 mg/dL (8.4-10.2); Carbon Dioxide 27 mmol/L (22-29); Chloride 105 mmol/L (96-108); Estimated Glomerular Filt Rate > 60; Glucose Random 146 mg/dL (60-115); Potassium 3.8 mmol/L (3.3-5.1); Sodium 142 mmol/L (135-145); Total Protein 6.6 g/dL (6.5-8.0)
== END 2021-06-15 07:05 | disposition home or self-care (01) ==
LOC: HO.LHD 07:04
PROVIDERS: Visit Provider Internal Medicine
DX: C79.82 Secondary malignant neoplasm of genital organs (principal)
CPT/HCPCS: 36415; 80053; 85007; 85027

== ENCOUNTER 2021-06-22 14:38 | Outpatient (REF) | payer MEDICARE, BC, SELFPAY ==
[2021-06-22 10:06] LABS: Hematocrit 33.8 % (42-52); Hemoglobin 10.8 g/dl (14.0-18.0); Mean Corpuscular Hemoglobin 31.8 pg (27.0-33.0); Mean Corpuscular Volume 99.4 fL (80-98); Mean Platelet Volume 9.4 fL (9.4-12.4); NRBC Pct Auto 0.2 /100WBC (0.0-0.2); Platelet Count 196 X10*3/uL (160-400); Red Cell Distribution Width 14.6 % (11.0-16.0); White Blood Count 12.9 X10*3/uL (4.8-10.8)
[2021-06-22 10:49] LABS: Alanine Aminotransferase 30 U/L (0-40); Albumin Level 4.1 g/dL (3.5-5.0); Alkaline Phosphatase 124 U/L (39-117); Anion Gap 13 (12-20); Aspartate Amino Transferase 19 U/L (5-37); Bilirubin Total 0.4 mg/dL (0.0-1.0); Blood Urea Nitrogen 13 mg/dL (9-16); Calcium 8.6 mg/dL (8.4-10.2); Carbon Dioxide 25 mmol/L (22-29); Chloride 106 mmol/L (96-108); Estimated Glomerular Filt Rate > 60; Glucose Random 108 mg/dL (60-115); Potassium 3.9 mmol/L (3.3-5.1); Sodium 140 mmol/L (135-145); Total Protein 6.5 g/dL (6.5-8.0)
[2021-06-22 10:59] LABS: Band Neutrophils Percent 13 % (3-5); Lymphocytes Absolute Manual 2.1 X10*3/uL (0.6-4.8); Lymphocytes Percent Manual 16 % (20-40); Metamyelocytes Absolute 0.4 X10*3/uL; Metamyelocytes Percent 3 %; Monocytes Absolute Manual 0.8 X10*3/uL (0.0-1.2); Monocytes Percent Manual 6 % (2-11); Neutrophils Absolute Manual 9.7 X10*3/uL (2.2-7.9); Neutrophils Percent Manual 62 % (45-73); Nucleated Red Blood Cells 1 /100WBC (0-0)
[2021-06-22 11:00] LABS: Platelet Estimate NORMAL (NORMAL); Platelet Morphology Comment NORMAL; RBC Morphology NOTED
[2021-06-22 11:03] LABS: Macrocytosis 1+ (5-14) /OIF; Polychromasia 1+ (0-2) /OIF
== END 2021-06-22 14:39 | disposition home or self-care (01) ==
LOC: HO.LHD 14:38
PROVIDERS: Visit Provider Internal Medicine Medical Oncology
DX: C61 Malignant neoplasm of prostate (principal); C79.9 Secondary malignant neoplasm of unspecified site
CPT/HCPCS: 36415; 80053; 85007; 85025; 85027

== ENCOUNTER → 2021-06-28 13:04 | Outpatient (BNVA) | payer MEDICARE, BC, SELFPAY | PROVIDERS: Referring Provider Internal Medicine; Visit Provider Internal Medicine Gastroenterology | DX: K62.7 Radiation proctitis (principal); R19.4 Change in bowel habit; Z86.010 Personal history of colon polyps | CPT/HCPCS: 99212 ==

== ENCOUNTER 2021-06-29 09:58 | Outpatient (REF) | payer MEDICARE, BC, SELFPAY ==
[2021-06-29 10:21] LABS: MANUAL DIFF FLAG NO
[2021-06-29 10:23] LABS: Basophils Percent Auto 0.6 % (0-2); Hematocrit 32.8 % (42-52); Hemoglobin 10.7 g/dl (14.0-18.0); Imm Gran Abs Auto 0.13 X10*3/uL (0.00-0.03); Imm Gran Pct Auto 2.7 % (0.0-0.4); Lymphocytes Absolute Auto 0.9 X10*3/uL (1.2-4.9); Lymphocytes Percent Auto 19.7 % (20-40); Mean Corpuscular HGB Conc 32.6 g/dl (31.0-36.0); Mean Corpuscular Hemoglobin 32.7 pg (27.0-33.0); Mean Corpuscular Volume 100.3 fL (80-98); Mean Platelet Volume 9.1 fL (9.4-12.4); Monocytes Absolute Auto 0.4 X10*3/uL (0.1-1.2); Monocytes Percent Auto 8.4 % (2-11); Neutrophils Absolute Auto 3.3 X10*3/uL (2.0-8.3); Neutrophils Percent Auto 68.6 % (45-73); Platelet Count 213 X10*3/uL (160-400); Red Blood Count 3.27 X10*6/uL (4.60-5.80); Red Cell Distribution Width 14.9 % (11.0-16.0); White Blood Count 4.8 X10*3/uL (4.8-10.8)
[2021-06-29 10:57] LABS: Alanine Aminotransferase 33 U/L (0-40); Albumin Level 4.1 g/dL (3.5-5.0); Alkaline Phosphatase 101 U/L (39-117); Anion Gap 12 (12-20); Aspartate Amino Transferase 17 U/L (5-37); Bilirubin Total 0.3 mg/dL (0.0-1.0); Blood Urea Nitrogen 17 mg/dL (9-16); Calcium 9.2 mg/dL (8.4-10.2); Carbon Dioxide 27 mmol/L (22-29); Chloride 107 mmol/L (96-108); Glucose Random 132 mg/dL (60-115); Potassium 4.2 mmol/L (3.3-5.1); Sodium 142 mmol/L (135-145); Total Protein 6.5 g/dL (6.5-8.0)
[2021-06-30 09:14] LABS: Estimated Glomerular Filt Rate > 60
[2021-06-30 09:24] LABS: Prostate Specific Antigen 60.14 ng/mL (<0.05-4.0)
== END 2021-06-29 09:59 | disposition home or self-care (01) ==
LOC: HO.LHD 09:58
PROVIDERS: Visit Provider Internal Medicine
DX: C61 Malignant neoplasm of prostate (principal); C79.51 Secondary malignant neoplasm of bone
CPT/HCPCS: 36415; 80053; 84153; 85025

== ENCOUNTER 2021-07-06 06:54 | Outpatient (REF) | payer MEDICARE, BC, SELFPAY | END 2021-07-06 06:55 | disposition home or self-care (01) | LOC: HO.LHD 06:54 | PROVIDERS: Visit Provider Internal Medicine Medical Oncology | DX: Z13.89 Encounter for screening for other disorder (principal) ==

== ENCOUNTER → 2021-07-07 10:37 | Outpatient (BNVA) | payer MEDICARE, BC, SELFPAY | PROVIDERS: Visit Provider Orthopaedic Surgery ==

== ENCOUNTER 2021-07-13 06:07 | Outpatient (REF) | payer MEDICARE, BC, SELFPAY ==
[2021-07-13 10:24] LABS: Hematocrit 32.9 % (42-52); Hemoglobin 10.6 g/dl (14.0-18.0); Mean Corpuscular HGB Conc 32.2 g/dl (31.0-36.0); Mean Corpuscular Hemoglobin 32.7 pg (27.0-33.0); Mean Corpuscular Volume 101.5 fL (80-98); Mean Platelet Volume 9.2 fL (9.4-12.4); NRBC Pct Auto 0.2 /100WBC (0.0-0.2); Platelet Count 207 X10*3/uL (160-400); Red Blood Count 3.24 X10*6/uL (4.60-5.80); Red Cell Distribution Width 15.7 % (11.0-16.0); White Blood Count 12.6 X10*3/uL (4.8-10.8)
[2021-07-13 11:09] LABS: Lactate Dehydrogenase 298 U/L (118-273)
[2021-07-13 11:24] LABS: Alanine Aminotransferase 34 U/L (0-40); Albumin Level 4.4 g/dL (3.5-5.0); Alkaline Phosphatase 153 U/L (39-117); Anion Gap 16 (12-20); Aspartate Amino Transferase 18 U/L (5-37); Bilirubin Total 0.4 mg/dL (0.0-1.0); Blood Urea Nitrogen 17 mg/dL (9-16); Calcium 9.5 mg/dL (8.4-10.2); Carbon Dioxide 25 mmol/L (22-29); Chloride 105 mmol/L (96-108); Estimated Glomerular Filt Rate > 60; Glucose Random 121 mg/dL (60-115); Potassium 3.9 mmol/L (3.3-5.1); Sodium 142 mmol/L (135-145); Total Protein 6.9 g/dL (6.5-8.0)
[2021-07-13 11:33] LABS: PSA,Total (Free>4and<10) 64.57 ng/mL (0.00-4.00)
[2021-07-13 11:57] LABS: Band Neutrophils Percent 11 % (3-5); Eosinophils Absolute Manual 0.1 X10*3/UL (0.0-0.8); Eosinophils Percent Manual 1 % (0-4); Lymphocytes Absolute Manual 1.3 X10*3/uL (0.6-4.8); Lymphocytes Percent Manual 10 % (20-40); Macrocytosis 1+ (5-14) /OIF; Metamyelocytes Absolute 0.1 X10*3/uL; Metamyelocytes Percent 1 %; Monocytes Absolute Manual 0.1 X10*3/uL (0.0-1.2); Monocytes Percent Manual 1 % (2-11); Myelocytes Absolute 0.1 X10*/uL; Myelocytes Percent 1 %; Neutrophils Absolute Manual 10.8 X10*3/uL (2.2-7.9); Neutrophils Percent Manual 75 % (45-73); RBC Morphology NOTED
[2021-07-13 11:58] LABS: Hypochromasia 1+ (5-14) /OIF; Platelet Estimate NORMAL (NORMAL); Platelet Morphology Comment NORMAL
[2021-07-20 09:47] LABS: Testosterone, Free 0.6 pg/mL (30.0-135.0); Testosterone, Total 5 ng/dL (250-1100)
== END 2021-07-13 06:08 | disposition home or self-care (01) ==
LOC: HO.LHD 06:07
PROVIDERS: Visit Provider Internal Medicine
DX: C61 Malignant neoplasm of prostate (principal); C79.51 Secondary malignant neoplasm of bone
CPT/HCPCS: 36415; 80053; 83615; 84153; 84402; 84403; 85007; 85027

== ENCOUNTER 2021-07-20 07:58 | Outpatient (REF) | payer MEDICARE, BC, SELFPAY ==
[2021-07-20 10:17] LABS: MANUAL DIFF FLAG NO
[2021-07-20 10:19] LABS: Basophils Percent Auto 0.5 % (0-2); Eosinophils Percent Auto 0.3 % (0-4); Hematocrit 32.8 % (42-52); Hemoglobin 10.5 g/dl (14.0-18.0); Imm Gran Abs Auto 0.29 X10*3/uL (0.00-0.03); Imm Gran Pct Auto 4.6 % (0.0-0.4); Lymphocytes Absolute Auto 1.3 X10*3/uL (1.2-4.9); Lymphocytes Percent Auto 21.3 % (20-40); Mean Corpuscular Hemoglobin 32.9 pg (27.0-33.0); Mean Corpuscular Volume 102.8 fL (80-98); Mean Platelet Volume 8.8 fL (9.4-12.4); Monocytes Absolute Auto 0.4 X10*3/uL (0.1-1.2); Neutrophils Absolute Auto 4.2 X10*3/uL (2.0-8.3); Neutrophils Percent Auto 66.3 % (45-73); Platelet Count 228 X10*3/uL (160-400); Red Blood Count 3.19 X10*6/uL (4.60-5.80); Red Cell Distribution Width 15.9 % (11.0-16.0); White Blood Count 6.3 X10*3/uL (4.8-10.8)
[2021-07-20 11:22] LABS: Alanine Aminotransferase 36 U/L (0-40); Albumin Level 4.1 g/dL (3.5-5.0); Alkaline Phosphatase 105 U/L (39-117); Anion Gap 11 (12-20); Aspartate Amino Transferase 20 U/L (5-37); Bilirubin Total 0.4 mg/dL (0.0-1.0); Blood Urea Nitrogen 15 mg/dL (9-16); Calcium 8.7 mg/dL (8.4-10.2); Carbon Dioxide 26 mmol/L (22-29); Chloride 111 mmol/L (96-108); Estimated Glomerular Filt Rate > 60; Glucose Random 118 mg/dL (60-115); Potassium 4.2 mmol/L (3.3-5.1); Sodium 144 mmol/L (135-145); Total Protein 6.4 g/dL (6.5-8.0)
[2021-07-20 11:32] LABS: Lactate Dehydrogenase 312 U/L (118-273)
[2021-07-20 11:44] LABS: Prostate Specific Antigen 59.16 ng/mL (<0.05-4.0)
[2021-07-25 10:47] LABS: Testosterone, Total 6 ng/dL (250-1100)
== END 2021-07-20 07:59 | disposition home or self-care (01) ==
LOC: HO.LHD 07:58
PROVIDERS: Visit Provider Internal Medicine
DX: Z12.5 Encounter for screening for malignant neoplasm of prostate (principal); C79.82 Secondary malignant neoplasm of genital organs
CPT/HCPCS: 36415; 80053; 83615; 84153; 84403; 85025

== ENCOUNTER → 2021-07-23 09:23 | Outpatient (BNVA) | payer MEDICARE, BC, SELFPAY | PROVIDERS: Visit Provider Orthopaedic Surgery | DX: M17.11 Unilateral primary osteoarthritis, right knee (principal) | CPT/HCPCS: 20610; 99212; J1100 ==

== ENCOUNTER 2021-07-27 08:19 | Outpatient (REF) | payer MEDICARE, BC, SELFPAY ==
[2021-07-27 11:41] LABS: Hemoglobin 9.6 g/dl (14.0-18.0); Mean Corpuscular Hemoglobin 32.8 pg (27.0-33.0); Mean Corpuscular Volume 102.4 fL (80.0-98.0); Mean Platelet Volume 9.9 fL (9.4-12.4); Red Blood Count 2.93 X10*6/uL (4.60-5.80); Red Cell Distribution Width 15.9 % (11.0-16.0)
[2021-07-27 11:47] LABS: WBC ABN SCTR FOR CBC 1
[2021-07-27 12:04] LABS: Alanine Aminotransferase 35 U/L (0-40); Alkaline Phosphatase 116 U/L (39-117); Anion Gap 12 (12-20); Aspartate Amino Transferase 16 U/L (5-37); Bilirubin Total 0.7 mg/dL (0.0-1.0); Blood Urea Nitrogen 16 mg/dL (9-16); Calcium 8.5 mg/dL (8.4-10.2); Carbon Dioxide 27 mmol/L (22-29); Chloride 106 mmol/L (96-108); Estimated Glomerular Filt Rate > 60; Glucose Random 175 mg/dL (60-115); Potassium 4.2 mmol/L (3.3-5.1); Sodium 141 mmol/L (135-145); Total Protein 6.1 g/dL (6.5-8.0)
[2021-07-27 12:14] LABS: Band Neutrophils Percent 5 % (3-5); Lactate Dehydrogenase 288 U/L (118-273); Lymphocytes Percent Manual 19 % (20-40); Monocytes Percent Manual 5 % (2-11); Neutrophils Percent Manual 71 % (45-73)
[2021-07-27 12:15] LABS: Dohle Bodies PRESENT; WBC Morphology Comment DYSMORPHIC
[2021-07-27 12:16] LABS: Hypochromasia 1+ (5-14) /OIF; RBC Morphology NOTED
[2021-07-27 12:17] LABS: Macrocytosis 1+ (5-14) /OIF; Platelet Estimate SLIGHTLY DECREASED (NORMAL); Platelet Morphology Comment NORMAL
[2021-07-27 12:19] LABS: Lymphocytes Absolute Manual 1.2 X10*3/uL (1.2-4.9); Monocytes Absolute Manual 0.3 X10*3/uL (0.1-1.2); Neutrophils Absolute Manual 4.6 X10*3/uL (2.0-8.3); Platelet Count 115 X10*3/uL (160-400); White Blood Count 6.1 X10*3/uL (4.8-10.8)
[2021-07-27 12:24] LABS: Prostate Specific Antigen 61.74 ng/mL (<0.05-4.0)
[2021-07-31 12:16] LABS: Testosterone, Total 3 ng/dL (250-1100)
== END 2021-07-27 08:20 | disposition home or self-care (01) ==
LOC: HO.LHD 08:19
PROVIDERS: Visit Provider Internal Medicine
DX: Z12.5 Encounter for screening for malignant neoplasm of prostate (principal); C61 Malignant neoplasm of prostate
CPT/HCPCS: 36415; 80053; 83615; 84153; 84403; 85007; 85027

== ENCOUNTER 2021-08-03 10:32 | Outpatient (REF) | payer MEDICARE, BC, SELFPAY ==
[2021-08-03 09:52] LABS: Hematocrit 32.2 % (42.0-52.0); Hemoglobin 10.1 g/dl (14.0-18.0); Mean Corpuscular HGB Conc 31.4 g/dl (31.0-36.0); Mean Corpuscular Hemoglobin 33.1 pg (27.0-33.0); Mean Corpuscular Volume 105.6 fL (80.0-98.0); Mean Platelet Volume 9.6 fL (9.4-12.4); NRBC Pct Auto 0.2 /100WBC (0.0-0.2); Platelet Count 205 X10*3/uL (160-400); Red Blood Count 3.05 X10*6/uL (4.60-5.80); Red Cell Distribution Width 16.4 % (11.0-16.0); White Blood Count 13.3 X10*3/uL (4.8-10.8)
[2021-08-03 10:04] LABS: Alanine Aminotransferase 39 U/L (0-40); Albumin Level 4.3 g/dL (3.5-5.0); Alkaline Phosphatase 130 U/L (39-117); Anion Gap 13 (12-20); Aspartate Amino Transferase 21 U/L (5-37); Bilirubin Total 0.4 mg/dL (0.0-1.0); Blood Urea Nitrogen 19 mg/dL (9-16); Calcium 8.7 mg/dL (8.4-10.2); Carbon Dioxide 26 mmol/L (22-29); Chloride 105 mmol/L (96-108); Estimated Glomerular Filt Rate > 60; Glucose Random 129 mg/dL (60-115); Potassium 3.9 mmol/L (3.3-5.1); Sodium 140 mmol/L (135-145); Total Protein 6.7 g/dL (6.5-8.0)
[2021-08-03 10:12] LABS: Lactate Dehydrogenase 296 U/L (118-273)
[2021-08-03 10:27] LABS: Band Neutrophils Percent 9 % (3-5); Eosinophils Absolute Manual 0.1 X10*3/uL (0.0-0.4); Eosinophils Percent Manual 1 % (0-4); Lymphocytes Absolute Manual 1.6 X10*3/uL (1.2-4.9); Lymphocytes Percent Manual 12 % (20-40); Metamyelocytes Absolute 0.1 X10*3/uL; Metamyelocytes Percent 1 %; Monocytes Absolute Manual 0.4 X10*3/uL (0.1-1.2); Monocytes Percent Manual 3 % (2-11); Neutrophils Percent Manual 74 % (45-73)
[2021-08-03 10:29] LABS: Macrocytosis 1+ (5-14) /OIF
[2021-08-03 10:30] LABS: Dohle Bodies PRESENT; Hypochromasia 1+ (5-14) /OIF; Platelet Estimate NORMAL (NORMAL); Platelet Morphology Comment NORMAL; RBC Morphology NOTED; Toxic Vacuolation PRESENT
[2021-08-07 12:05] LABS: Testosterone, Total 5 ng/dL (250-1100)
== END 2021-08-03 10:33 | disposition home or self-care (01) ==
LOC: HO.LHD 10:32
PROVIDERS: Visit Provider Internal Medicine
DX: Z12.5 Encounter for screening for malignant neoplasm of prostate (principal); C61 Malignant neoplasm of prostate; C79.51 Secondary malignant neoplasm of bone
CPT/HCPCS: 36415; 80053; 83615; 84153; 84403; 85007; 85025; 85027

== ENCOUNTER 2021-08-17 07:10 | Outpatient (REF) | payer MEDICARE, BC, SELFPAY ==
[2021-08-17 10:05] LABS: Hematocrit 28.5 % (42.0-52.0); Hemoglobin 9.2 g/dl (14.0-18.0); Mean Corpuscular HGB Conc 32.3 g/dl (31.0-36.0); Mean Corpuscular Hemoglobin 33.8 pg (27.0-33.0); Mean Corpuscular Volume 104.8 fL (80.0-98.0); Mean Platelet Volume 10.5 fL (9.4-12.4); Platelet Count 111 X10*3/uL (160-400); Red Blood Count 2.72 X10*6/uL (4.60-5.80); Red Cell Distribution Width 16.1 % (11.0-16.0)
[2021-08-17 10:07] LABS: WBC ABN SCTR FOR CBC 1
[2021-08-17 10:20] LABS: Alanine Aminotransferase 33 U/L (0-40); Alkaline Phosphatase 119 U/L (39-117); Anion Gap 13 (12-20); Aspartate Amino Transferase 17 U/L (5-37); Bilirubin Total 0.3 mg/dL (0.0-1.0); Blood Urea Nitrogen 18 mg/dL (9-16); Calcium 9.1 mg/dL (8.4-10.2); Carbon Dioxide 27 mmol/L (22-29); Chloride 107 mmol/L (96-108); Estimated Glomerular Filt Rate > 60; Glucose Random 110 mg/dL (60-115); Potassium 4.4 mmol/L (3.3-5.1); Sodium 143 mmol/L (135-145); Total Protein 6.1 g/dL (6.5-8.0)
[2021-08-17 10:35] LABS: Lactate Dehydrogenase 251 U/L (118-273)
[2021-08-17 11:05] LABS: Atypical Lymphs Percent Manual 1 % (0-6); Band Neutrophils Percent 13 % (3-5); Basophils Percent Manual 1 % (0-2); Lymphocytes Percent Manual 21 % (20-40); Metamyelocytes Percent 1 %; Monocytes Percent Manual 4 % (2-11); Neutrophils Percent Manual 58 % (45-73); Promyelocytes Percent 1 %
[2021-08-17 11:09] LABS: Platelet Estimate DECREASED (NORMAL); Platelet Morphology Comment NORMAL; Tear Drop Cells 1+ (0-2) /OIF
[2021-08-17 11:11] LABS: RBC Morphology NOTED
[2021-08-17 11:12] LABS: Macrocytosis 1+ (5-14) /OIF
[2021-08-17 11:16] LABS: Dohle Bodies PRESENT
[2021-08-17 11:21] LABS: Lymphocytes Absolute Manual 0.9 X10*3/uL (1.2-4.9); Monocytes Absolute Manual 0.2 X10*3/uL (0.1-1.2); Neutrophils Absolute Manual 3.1 X10*3/uL (2.0-8.3); White Blood Count 4.4 X10*3/uL (4.8-10.8)
[2021-08-17 11:28] LABS: Prostate Specific Antigen 53.38 ng/mL (<0.05-4.0)
[2021-08-22 15:17] LABS: Testosterone, Total 4 ng/dL (250-1100)
== END 2021-08-17 07:11 | disposition home or self-care (01) ==
LOC: HO.LHD 07:10
PROVIDERS: Visit Provider Internal Medicine
DX: Z12.5 Encounter for screening for malignant neoplasm of prostate (principal); C61 Malignant neoplasm of prostate; C79.51 Secondary malignant neoplasm of bone
CPT/HCPCS: 36415; 80053; 83615; 84153; 84403; 85007; 85025; 85027

== ENCOUNTER 2021-08-24 07:19 | Outpatient (REF) | payer MEDICARE, BC, SELFPAY ==
[2021-08-24 09:22] LABS: Hematocrit 29.1 % (42.0-52.0); Hemoglobin 9.1 g/dl (14.0-18.0); Mean Corpuscular HGB Conc 31.3 g/dl (31.0-36.0); Mean Corpuscular Hemoglobin 33.6 pg (27.0-33.0); Mean Corpuscular Volume 107.4 fL (80.0-98.0); Mean Platelet Volume 9.4 fL (9.4-12.4); NRBC Pct Auto 0.2 /100WBC (0.0-0.2); Platelet Count 176 X10*3/uL (160-400); Red Blood Count 2.71 X10*6/uL (4.60-5.80); Red Cell Distribution Width 16.8 % (11.0-16.0)
[2021-08-24 09:52] LABS: Alanine Aminotransferase 35 U/L (0-40); Albumin Level 4.1 g/dL (3.5-5.0); Alkaline Phosphatase 120 U/L (39-117); Anion Gap 12 (12-20); Aspartate Amino Transferase 20 U/L (5-37); Bilirubin Total 0.4 mg/dL (0.0-1.0); Blood Urea Nitrogen 14 mg/dL (9-16); Calcium 8.8 mg/dL (8.4-10.2); Carbon Dioxide 25 mmol/L (22-29); Chloride 109 mmol/L (96-108); Estimated Glomerular Filt Rate > 60; Glucose Random 129 mg/dL (60-115); Sodium 142 mmol/L (135-145); Total Protein 6.4 g/dL (6.5-8.0)
[2021-08-24 10:11] LABS: Lactate Dehydrogenase 314 U/L (118-273)
[2021-08-24 10:17] LABS: Prostate Specific Antigen 50.43 ng/mL (<0.05-4.0)
[2021-08-24 10:42] LABS: Band Neutrophils Percent 11 % (3-5); Lymphocytes Absolute Manual 0.9 X10*3/uL (1.2-4.9); Lymphocytes Percent Manual 10 % (20-40); Metamyelocytes Absolute 0.2 X10*3/uL; Metamyelocytes Percent 2 %; Monocytes Absolute Manual 0.2 X10*3/uL (0.1-1.2); Monocytes Percent Manual 2 % (2-11); Myelocytes Absolute 0.1 X10*/uL; Myelocytes Percent 1 %; Neutrophils Absolute Manual 7.7 X10*3/uL (2.0-8.3); Neutrophils Percent Manual 74 % (45-73); Nucleated Red Blood Cells 1 /100WBC (0-0)
[2021-08-24 10:43] LABS: Macrocytosis 1+ (5-14) /OIF; Polychromasia 1+ (0-2) /OIF; RBC Morphology NOTED
[2021-08-24 10:44] LABS: Ovalocytes 1+ (5-14) /OIF; Platelet Estimate NORMAL (NORMAL); Platelet Morphology Comment NORMAL
[2021-08-29 09:47] LABS: Testosterone, Total 4 ng/dL (250-1100)
== END 2021-08-24 07:20 | disposition home or self-care (01) ==
LOC: HO.LHD 07:19
PROVIDERS: Visit Provider Internal Medicine
DX: C61 Malignant neoplasm of prostate (principal); C79.51 Secondary malignant neoplasm of bone
CPT/HCPCS: 36415; 80053; 83615; 84153; 84403; 85007; 85027

== ENCOUNTER 2021-08-31 10:47 | Outpatient (REF) | payer MEDICARE, BC, SELFPAY ==
[2021-08-31 09:31] LABS: MANUAL DIFF FLAG NO
[2021-08-31 09:33] LABS: Basophils Percent Auto 0.3 % (0-2); Eosinophils Percent Auto 0.2 % (0-4); Hematocrit 30.4 % (42.0-52.0); Hemoglobin 9.8 g/dl (14.0-18.0); Imm Gran Abs Auto 0.13 X10*3/uL (0.00-0.03); Imm Gran Pct Auto 2.1 % (0.0-0.4); Lymphocytes Absolute Auto 1.5 X10*3/uL (1.2-4.9); Lymphocytes Percent Auto 24.1 % (20-40); Mean Corpuscular HGB Conc 32.2 g/dl (31.0-36.0); Mean Corpuscular Hemoglobin 34.6 pg (27.0-33.0); Mean Corpuscular Volume 107.4 fL (80.0-98.0); Mean Platelet Volume 9.1 fL (9.4-12.4); Monocytes Absolute Auto 0.5 X10*3/uL (0.1-1.2); Monocytes Percent Auto 7.5 % (2-11); Neutrophils Percent Auto 65.8 % (45-73); Platelet Count 219 X10*3/uL (160-400); Red Blood Count 2.83 X10*6/uL (4.60-5.80); Red Cell Distribution Width 16.8 % (11.0-16.0); White Blood Count 6.1 X10*3/uL (4.8-10.8)
[2021-08-31 11:04] LABS: Alanine Aminotransferase 38 U/L (0-40); Albumin Level 4.3 g/dL (3.5-5.0); Alkaline Phosphatase 103 U/L (39-117); Anion Gap 15 (12-20); Aspartate Amino Transferase 22 U/L (5-37); Bilirubin Total 0.5 mg/dL (0.0-1.0); Blood Urea Nitrogen 17 mg/dL (9-16); Calcium 9.1 mg/dL (8.4-10.2); Carbon Dioxide 23 mmol/L (22-29); Chloride 108 mmol/L (96-108); Estimated Glomerular Filt Rate > 60; Glucose Random 121 mg/dL (60-115); Sodium 142 mmol/L (135-145); Total Protein 6.7 g/dL (6.5-8.0)
[2021-08-31 11:18] LABS: Lactate Dehydrogenase 306 U/L (118-273)
[2021-09-06 12:51] LABS: Testosterone, Total 5 ng/dL (250-1100)
== END 2021-08-31 10:48 | disposition home or self-care (01) ==
LOC: HO.LHD 10:47
PROVIDERS: Visit Provider Internal Medicine
DX: Z12.5 Encounter for screening for malignant neoplasm of prostate (principal); C61 Malignant neoplasm of prostate
CPT/HCPCS: 36415; 80053; 83615; 84153; 84403; 85025

== ENCOUNTER 2021-09-07 09:58 | Outpatient (REF) | payer MEDICARE, BC, SELFPAY ==
[2021-09-07 09:35] LABS: Hematocrit 27.7 % (42.0-52.0); Imm Gran Abs Auto 0.02 X10*3/uL (0.00-0.03); Imm Gran Pct Auto 1.9 % (0.0-0.4); Lymphocytes Absolute Auto 0.5 X10*3/uL (1.2-4.9); Lymphocytes Percent Auto 52.4 % (20-40); MANUAL DIFF FLAG SCAN; Mean Corpuscular HGB Conc 32.5 g/dl (31.0-36.0); Mean Corpuscular Volume 104.5 fL (80.0-98.0); Mean Platelet Volume 9.5 fL (9.4-12.4); Monocytes Percent Auto 2.9 % (2-11); Neutrophils Absolute Auto 0.4 x10*3/uL (2.0-8.3); Neutrophils Percent Auto 41.8 % (45-73); Platelet Count 137 X10*3/uL (160-400); Red Blood Count 2.65 X10*6/uL (4.60-5.80); Red Cell Distribution Width 15.4 % (11.0-16.0); SCAN SMEAR FLAG 1
[2021-09-07 10:10] LABS: SLIDE REVIEW VERIFIED
[2021-09-07 10:21] LABS: Alanine Aminotransferase 35 U/L (0-40); Albumin Level 4.1 g/dL (3.5-5.0); Alkaline Phosphatase 81 U/L (39-117); Anion Gap 12 (12-20); Aspartate Amino Transferase 21 U/L (5-37); Bilirubin Total 0.4 mg/dL (0.0-1.0); Blood Urea Nitrogen 19 mg/dL (9-16); Carbon Dioxide 26 mmol/L (22-29); Chloride 104 mmol/L (96-108); Estimated Glomerular Filt Rate > 60; Glucose Random 127 mg/dL (60-115); Lactate Dehydrogenase 257 U/L (118-273); Potassium 4.3 mmol/L (3.3-5.1); Sodium 138 mmol/L (135-145); Total Protein 6.3 g/dL (6.5-8.0)
[2021-09-07 10:47] LABS: Prostate Specific Antigen 45.24 ng/mL (<0.05-4.0)
[2021-09-10 14:21] LABS: Testosterone, Total 3 ng/dL (250-1100)
== END 2021-09-07 09:59 | disposition home or self-care (01) ==
LOC: HO.LHD 09:58
PROVIDERS: Visit Provider Internal Medicine Medical Oncology
DX: C61 Malignant neoplasm of prostate (principal)
CPT/HCPCS: 36415; 80053; 83615; 84153; 84403; 85025

== ENCOUNTER 2021-09-14 06:29 | Outpatient (REF) | payer MEDICARE, BC, SELFPAY ==
[2021-09-14 09:45] LABS: Basophils Percent Auto 0.9 % (0-2); Hematocrit 28.4 % (42.0-52.0); Imm Gran Abs Auto 0.01 X10*3/uL (0.00-0.03); Imm Gran Pct Auto 0.9 % (0.0-0.4); Lymphocytes Absolute Auto 0.6 X10*3/uL (1.2-4.9); Lymphocytes Percent Auto 58.3 % (20-40); MANUAL DIFF FLAG SCAN; Mean Corpuscular HGB Conc 31.7 g/dl (31.0-36.0); Mean Corpuscular Hemoglobin 33.5 pg (27.0-33.0); Mean Corpuscular Volume 105.6 fL (80.0-98.0); Mean Platelet Volume 9.4 fL (9.4-12.4); Monocytes Absolute Auto 0.3 X10*3/uL (0.1-1.2); Monocytes Percent Auto 26.9 % (2-11); Neutrophils Absolute Auto 0.1 x10*3/uL (2.0-8.3); Platelet Count 193 X10*3/uL (160-400); Red Blood Count 2.69 X10*6/uL (4.60-5.80); Red Cell Distribution Width 15.8 % (11.0-16.0); SCAN SMEAR FLAG 1; White Blood Count 1.1 X10*3/uL (4.8-10.8)
[2021-09-14 10:10] LABS: Alanine Aminotransferase 39 U/L (0-40); Alkaline Phosphatase 92 U/L (39-117); Anion Gap 13 (12-20); Aspartate Amino Transferase 22 U/L (5-37); Bilirubin Total 0.4 mg/dL (0.0-1.0); Blood Urea Nitrogen 15 mg/dL (9-16); Calcium 8.8 mg/dL (8.4-10.2); Carbon Dioxide 26 mmol/L (22-29); Chloride 108 mmol/L (96-108); Estimated Glomerular Filt Rate > 60; Glucose Random 135 mg/dL (60-115); Lactate Dehydrogenase 255 U/L (118-273); Potassium 3.8 mmol/L (3.3-5.1); Sodium 143 mmol/L (135-145); Total Protein 6.4 g/dL (6.5-8.0)
[2021-09-14 10:29] LABS: SLIDE REVIEW VERIFIED
[2021-09-14 11:18] LABS: Prostate Specific Antigen 45.89 ng/mL (<0.05-4.0)
[2021-09-20 07:27] LABS: Testosterone, Total 5 ng/dL (250-1100)
== END 2021-09-14 06:30 | disposition home or self-care (01) ==
LOC: HO.LHD 06:29
PROVIDERS: Visit Provider Internal Medicine Medical Oncology
DX: Z12.5 Encounter for screening for malignant neoplasm of prostate (principal); C61 Malignant neoplasm of prostate
CPT/HCPCS: 36415; 80053; 83615; 84153; 84403; 85025

== ENCOUNTER 2021-09-21 | Outpatient (REF) | payer MEDICARE, BC, SELFPAY ==
[2021-09-21 09:46] LABS: Basophils Percent Auto 0.4 % (0-2); Eosinophils Percent Auto 0.4 % (0-4); Hematocrit 27.8 % (42.0-52.0); Imm Gran Abs Auto 0.01 X10*3/uL (0.00-0.03); Imm Gran Pct Auto 0.4 % (0.0-0.4); Lymphocytes Absolute Auto 0.6 X10*3/uL (1.2-4.9); Lymphocytes Percent Auto 25.8 % (20-40); MANUAL DIFF FLAG SCAN; Mean Corpuscular HGB Conc 32.4 g/dl (31.0-36.0); Mean Corpuscular Hemoglobin 34.6 pg (27.0-33.0); Mean Corpuscular Volume 106.9 fL (80.0-98.0); Mean Platelet Volume 8.9 fL (9.4-12.4); Monocytes Absolute Auto 0.3 X10*3/uL (0.1-1.2); Monocytes Percent Auto 12.9 % (2-11); Neutrophils Absolute Auto 1.5 x10*3/uL (2.0-8.3); Neutrophils Percent Auto 60.1 % (45-73); Platelet Count 192 X10*3/uL (160-400); Red Cell Distribution Width 15.5 % (11.0-16.0); SCAN SMEAR FLAG 1; White Blood Count 2.5 X10*3/uL (4.8-10.8)
[2021-09-21 10:13] LABS: Alanine Aminotransferase 38 U/L (0-40); Alkaline Phosphatase 83 U/L (39-117); Anion Gap 11 (12-20); Aspartate Amino Transferase 26 U/L (5-37); Bilirubin Total 0.4 mg/dL (0.0-1.0); Blood Urea Nitrogen 19 mg/dL (9-16); Calcium 9.1 mg/dL (8.4-10.2); Carbon Dioxide 26 mmol/L (22-29); Chloride 110 mmol/L (96-108); Estimated Glomerular Filt Rate > 60; Glucose Random 152 mg/dL (60-115); Lactate Dehydrogenase 276 U/L (118-273); Potassium 3.9 mmol/L (3.3-5.1); Sodium 143 mmol/L (135-145); Total Protein 6.3 g/dL (6.5-8.0)
[2021-09-21 10:35] LABS: Prostate Specific Antigen 38.06 ng/mL (<0.05-4.0)
[2021-09-21 10:55] LABS: SLIDE REVIEW VERIFIED
[2021-09-26 09:27] LABS: Testosterone, Total 3 ng/dL (250-1100)
== END 2021-09-21 00:01 | disposition home or self-care (01) ==
LOC: HO.LHD
PROVIDERS: Visit Provider Internal Medicine
DX: C79.82 Secondary malignant neoplasm of genital organs (principal); Z12.5 Encounter for screening for malignant neoplasm of prostate
CPT/HCPCS: 36415; 80053; 83615; 84153; 84403; 85025

== ENCOUNTER 2021-10-05 08:22 | Outpatient (REF) | payer MEDICARE, BC, SELFPAY ==
[2021-10-05 08:46] LABS: Hematocrit 29.9 % (42.0-52.0); Hemoglobin 9.7 g/dl (14.0-18.0); Mean Corpuscular HGB Conc 32.4 g/dl (31.0-36.0); Mean Corpuscular Volume 104.9 fL (80.0-98.0); Mean Platelet Volume 8.9 fL (9.4-12.4); Platelet Count 241 X10*3/uL (160-400); Red Blood Count 2.85 X10*6/uL (4.60-5.80); Red Cell Distribution Width 14.5 % (11.0-16.0); White Blood Count 2.9 X10*3/uL (4.8-10.8)
[2021-10-05 09:00] LABS: Alanine Aminotransferase 30 U/L (0-40); Alkaline Phosphatase 77 U/L (39-117); Anion Gap 12 (12-20); Aspartate Amino Transferase 20 U/L (5-37); Bilirubin Total 0.4 mg/dL (0.0-1.0); Blood Urea Nitrogen 16 mg/dL (9-16); Calcium 9.6 mg/dL (8.4-10.2); Carbon Dioxide 26 mmol/L (22-29); Chloride 108 mmol/L (96-108); Estimated Glomerular Filt Rate > 60; Glucose Random 113 mg/dL (60-115); Potassium 4.2 mmol/L (3.3-5.1); Sodium 142 mmol/L (135-145); Total Protein 6.3 g/dL (6.5-8.0)
[2021-10-05 09:49] LABS: Prostate Specific Antigen 28.69 ng/mL (<0.05-4.0)
== END 2021-10-05 08:23 | disposition home or self-care (01) ==
LOC: HO.LHD 08:22
PROVIDERS: Visit Provider Internal Medicine
DX: Z12.5 Encounter for screening for malignant neoplasm of prostate (principal); C61 Malignant neoplasm of prostate
CPT/HCPCS: 36415; 80053; 84153; 85027

== ENCOUNTER 2021-10-28 09:34 | Outpatient (REF) | payer MEDICARE, BC, SELFPAY ==
--- NOTE | ~2021-10-28 | XR_ITS ---
EXAMINATION: XR KNEE, BILATERAL XR KNEE, RIGHT CLINICAL INFORMATION: Pain COMPARISON: 09/11/2020 TECHNIQUE: AP standing view of both knees. Lateral and sunrise views of the right knee. FINDINGS: Right knee: No acute fracture or subluxation. Moderate narrowing at the medial and patellofemoral compartments. Small associated marginal osteophytes. Moderate joint effusion. The soft tissues are unremarkable. Left knee: No fracture or subluxation. Mild medial compartment joint space narrowing. There may be subtle chondrocalcinosis. XR/XR knee standing BI IMPRESSION: Moderate degenerative change at the medial and patellofemoral compartments of the right knee. This has progressed from prior. Mild medial compartment narrowing of the left knee, also appearing to have progressed from prior.
--- NOTE | ~2021-10-28 | XR_ITS ---
EXAMINATION: XR KNEE, BILATERAL XR KNEE, RIGHT CLINICAL INFORMATION: Pain COMPARISON: 09/11/2020 TECHNIQUE: AP standing view of both knees. Lateral and sunrise views of the right knee. FINDINGS: Right knee: No acute fracture or subluxation. Moderate narrowing at the medial and patellofemoral compartments. Small associated marginal osteophytes. Moderate joint effusion. The soft tissues are unremarkable. Left knee: No fracture or subluxation. Mild medial compartment joint space narrowing. There may be subtle chondrocalcinosis. XR/XR knee RT 2V IMPRESSION: Moderate degenerative change at the medial and patellofemoral compartments of the right knee. This has progressed from prior. Mild medial compartment narrowing of the left knee, also appearing to have progressed from prior.
== END 2021-10-28 09:35 | disposition home or self-care (01) ==
LOC: HO.HOSX 09:34
PROVIDERS: Visit Provider Orthopaedic Surgery
DX: M17.11 Unilateral primary osteoarthritis, right knee (principal); C61 Malignant neoplasm of prostate; C79.51 Secondary malignant neoplasm of bone
CPT/HCPCS: 73560; 73565; 99212

== ENCOUNTER 2021-11-02 12:04 | Outpatient (REF) | payer MEDICARE, SELFPAY ==
[2021-11-02 10:48] LABS: MANUAL DIFF FLAG NO
[2021-11-02 10:52] LABS: Basophils Percent Auto 0.3 % (0-2); Eosinophils Absolute Auto 0.1 X10*3/uL (0.0-0.4); Eosinophils Percent Auto 1.7 % (0-4); Hematocrit 33.4 % (42.0-52.0); Hemoglobin 10.8 g/dl (14.0-18.0); Imm Gran Abs Auto 0.01 X10*3/uL (0.00-0.03); Imm Gran Pct Auto 0.3 % (0.0-0.4); Lymphocytes Percent Auto 28.5 % (20-40); Mean Corpuscular HGB Conc 32.3 g/dl (31.0-36.0); Mean Corpuscular Hemoglobin 32.5 pg (27.0-33.0); Mean Corpuscular Volume 100.6 fL (80.0-98.0); Mean Platelet Volume 9.1 fL (9.4-12.4); Monocytes Absolute Auto 0.4 X10*3/uL (0.1-1.2); Monocytes Percent Auto 11.8 % (2-11); Neutrophils Percent Auto 57.4 % (45-73); Platelet Count 270 X10*3/uL (160-400); Red Blood Count 3.32 X10*6/uL (4.60-5.80); Red Cell Distribution Width 13.3 % (11.0-16.0); White Blood Count 3.6 X10*3/uL (4.8-10.8)
[2021-11-02 11:43] LABS: Prostate Specific Antigen 34.95 ng/mL (<0.05-4.0)
[2021-11-02 12:58] LABS: Alanine Aminotransferase 40 U/L (0-40); Albumin Level 4.1 g/dL (3.5-5.0); Alkaline Phosphatase 85 U/L (39-117); Anion Gap 13 (12-20); Aspartate Amino Transferase 28 U/L (5-37); Bilirubin Total 0.6 mg/dL (0.0-1.0); Blood Urea Nitrogen 19 mg/dL (9-16); Calcium 9.3 mg/dL (8.4-10.2); Carbon Dioxide 23 mmol/L (22-29); Chloride 108 mmol/L (96-108); Estimated Glomerular Filt Rate > 60; Glucose Random 176 mg/dL (60-115); Sodium 140 mmol/L (135-145); Total Protein 6.6 g/dL (6.5-8.0)
== END 2021-11-02 12:05 | disposition home or self-care (01) ==
LOC: HO.LHD 12:04
PROVIDERS: Visit Provider Internal Medicine
DX: C61 Malignant neoplasm of prostate (principal); Z12.5 Encounter for screening for malignant neoplasm of prostate
CPT/HCPCS: 36415; 80053; 84153; 85025

== ENCOUNTER → 2021-11-16 08:49 | Outpatient (BNVA) | payer MEDICARE, SELFPAY | PROVIDERS: Visit Provider Orthopaedic Surgery | DX: Z13.89 Encounter for screening for other disorder (principal) ==

== ENCOUNTER → 2021-11-24 13:10 | Outpatient (BNVA) | payer MEDICARE, BC, SELFPAY | PROVIDERS: PCP Internal Medicine; Referring Provider Internal Medicine; Visit Provider Internal Medicine | DX: Z01.810 Encounter for preprocedural cardiovascular examination (principal); I35.1 Nonrheumatic aortic (valve) insufficiency; I77.810 Thoracic aortic ectasia; C61 Malignant neoplasm of prostate; C79.51 Secondary malignant neoplasm of bone | CPT/HCPCS: 93005; 99212 ==

== ENCOUNTER 2021-11-29 09:50 | Outpatient (RCR) | payer MEDICARE, BC, SELFPAY ==
--- NOTE | 2021-11-29 11:56 | MHC.PT.EP ---
[facility] [place] Office [place] [facility] [place] [facility] [address] Ericka Miranda [address] [phone] F: [phone] F: [phone] F: [phone] F: [phone] Physical Therapy Plan of Care Date of Evaluation: Date of Surgery: 12/14/21 Diagnosis: prehab for R TKA 12/14/21 Assessment: 81 y/o M referred to PT for prehab R TKA scheduled for 12/14/21. He has had R knee pain for 1.5 years of insidious onset that has failed conservative management. He reports pain and difficulty with walking and stairs, currently performs step-to pattern on stairs. He is also the main caregiver for his with Alzeihmers and she requires total 24/7 care. Currently he presents with decreased R knee AROM 0-5-118, decreased R LE strength, R genu varus, increased pain R medial TF jiont line, and impaired gait pattern. Recommend PT 1x/week for 2 weeks prior to surgery to implement HEP and optimize functional mobility. He reports he will perform HEP given today and may or may not schedule second appointment due to difficulty with scheduling care for his . Frequency and Duration: The patient will be seen 1x/week for 2 weeks Short Term Goals: 1. Initiate HEP Skilled Nursing Goals: 1. Compliant with HEP 2. Ambulate > 20 min with pain < 4/10 Treatment Plan: Modalities to reduce pain, spasms and effusion. Manual therapy to restore motion and function. Therapeutic exercise to improve strength and flexibility. Neuromuscular re-education for posture and balance. Therapeutic activities to return to functional activities of daily living. Electronically signed by: Yaritza Alcala PT Please sign and return to therapist. Thank you for your referral.
--- NOTE | 2021-12-24 09:56 | MHC.PT.DC ---
[facility] [place] Office [place] Office [place] Office [address] Ericka Miranda [address] [phone] F: [phone] F: [phone] F: [phone] F: [phone] Physical Therapy Discharge Report Diagnosis: prehab for R TKA 12/14/21 Date of Surgery: 12/14/21 Date of Evaluation: 11/29/21 Date of Discharge: 12/24/21 Treatments to Date: 1 Cancellations to Date: 0 No Shows to Date: 0 Discharge Status: Independent with HEP Discharge Summary: Pt attended one visit of prehab prior to TKA scheduled for 12/14/21. D/c at this time. Electronically signed by: Yaritza Alcala PT Please sign and return to therapist. Thank you for your referral.
== END 2021-12-24 09:56 | disposition home or self-care (01) ==
LOC: HO.PTCHIC 09:50
PROVIDERS: PCP Internal Medicine; Visit Provider Orthopaedic Surgery
DX: M17.11 Unilateral primary osteoarthritis, right knee (principal)
CPT/HCPCS: 97110; 97161

== ENCOUNTER 2021-11-30 14:01 | Outpatient (REF) | payer MEDICARE, BC, SELFPAY ==
[2021-11-30 12:09] LABS: MANUAL DIFF FLAG NO
[2021-11-30 12:13] LABS: Basophils Percent Auto 0.5 % (0-2); Eosinophils Absolute Auto 0.1 X10*3/uL (0.0-0.4); Eosinophils Percent Auto 1.1 % (0-4); Hemoglobin 11.5 g/dl (14.0-18.0); Imm Gran Abs Auto 0.01 X10*3/uL (0.00-0.03); Imm Gran Pct Auto 0.2 % (0.0-0.4); Lymphocytes Absolute Auto 0.8 X10*3/uL (1.2-4.9); Lymphocytes Percent Auto 18.9 % (20-40); Mean Corpuscular HGB Conc 31.9 g/dl (31.0-36.0); Mean Corpuscular Hemoglobin 31.5 pg (27.0-33.0); Mean Corpuscular Volume 98.6 fL (80.0-98.0); Mean Platelet Volume 9.2 fL (9.4-12.4); Monocytes Absolute Auto 0.4 X10*3/uL (0.1-1.2); Monocytes Percent Auto 9.8 % (2-11); Neutrophils Absolute Auto 3.1 x10*3/uL (2.0-8.3); Neutrophils Percent Auto 69.5 % (45-73); Platelet Count 228 X10*3/uL (160-400); Red Blood Count 3.65 X10*6/uL (4.60-5.80); White Blood Count 4.4 X10*3/uL (4.8-10.8)
[2021-11-30 13:00] LABS: Alanine Aminotransferase 42 U/L (0-40); Alkaline Phosphatase 102 U/L (39-117); Anion Gap 14 (12-20); Aspartate Amino Transferase 27 U/L (5-37); Bilirubin Total 0.4 mg/dL (0.0-1.0); Blood Urea Nitrogen 20 mg/dL (9-16); Calcium 9.3 mg/dL (8.4-10.2); Carbon Dioxide 26 mmol/L (22-29); Chloride 106 mmol/L (96-108); Estimated Glomerular Filt Rate > 60; Glucose Random 146 mg/dL (60-115); Potassium 4.2 mmol/L (3.3-5.1); Sodium 142 mmol/L (135-145); Total Protein 6.6 g/dL (6.5-8.0)
[2021-11-30 13:22] LABS: Prostate Specific Antigen 86.15 ng/mL (<0.05-4.0)
[2021-11-30 13:26] LABS: Free T4 (Free Thyroxine) 1.13 ng/dL (0.71-1.85)
== END 2021-11-30 14:02 | disposition home or self-care (01) ==
LOC: HO.LHD 14:01
PROVIDERS: Internal Medicine Endocrinology, Diabetes & Metabolism; Visit Provider Internal Medicine
DX: Z12.5 Encounter for screening for malignant neoplasm of prostate (principal); C61 Malignant neoplasm of prostate; E03.9 Hypothyroidism, unspecified
CPT/HCPCS: 36415; 80053; 84153; 84439; 84443; 85025

== ENCOUNTER → 2021-12-09 12:37 | Outpatient (BNVA) | payer MEDICARE, BC, SELFPAY | PROVIDERS: PCP Internal Medicine; Visit Provider Physician Assistant | DX: Z01.810 Encounter for preprocedural cardiovascular examination (principal); M17.11 Unilateral primary osteoarthritis, right knee | CPT/HCPCS: 99212; 99213 ==

== ENCOUNTER 2021-12-14 10:04 | Inpatient (IN) | payer MEDICARE, BC, SELFPAY ==
[2021-12-08 12:22] VITALS: BP 120/68; PULSE 86; RESP 20; O2SAT 97; BMI 29.5
--- NOTE | 2021-12-08 12:34 | HO.ANESPROP2 ---
Documented by User: Shanice Morales NP 12/08/21 14:47 HPI - Anesthesia Eval Consult details Narrative: 81yo M for Right Knee Replacement Total PCP cleared Oncology cleared. OK to use port. (Prostate CA with bony mets. Last chemo 07/2021.) Cardiac cleared PMF Active Problems Active Problems: All Active Problems (Updated 12/08/21 @ 12:22 by Adriana Mitchell RN) Prostate cancer metastatic to bone (Chronic) Hypothyroidism (Acute) Localized osteoarthritis of right knee (Acute) Plantar fasciitis of right foot (Acute) History of colon polyps (Acute) Radiation proctitis (Acute) Change in bowel habits (Acute) Preoperative examination (Acute) Preoperative cardiovascular examination (Acute) GERD without esophagitis (Acute) Overweight (BMI 25.0-29.9) (Acute) Acquired hypothyroidism (Acute) Pure hypercholesterolemia (Acute) Diabetes mellitus (Acute) Primary osteoarthritis of right knee (Acute) Ascending aorta dilatation (Acute) Non-rheumatic aortic regurgitation (Acute) Past Medical History Medical History Acquired hypothyroidism Ascending aorta dilatation COVID-19 vaccine series completed Diabetes mellitus Family history of anesthesia complication GERD without esophagitis History of chemotherapy Legionella pneumonia Non-rheumatic aortic regurgitation Overweight (BMI 25.0-29.9) Port-A-Cath in place Primary osteoarthritis of right knee Prostate cancer metastatic to bone Pure hypercholesterolemia Radiation proctitis Family History Family History Father No problems noted. Mother No problems noted. Surgical History Surgical History H/O colonoscopy History of appendectomy History of left inguinal hernia repair (~02/2011) History of prostatectomy (~03/31/07) History of shoulder surgery Social History Social History Household Members: Spouse Housing: House Are you a primary palliative care coordinator to a significant other at home: Yes ( has Alzheimers and is bedridden) Do you presently have visiting nurse or other home services: No ( is on hospice care) Alcohol intake: current Alcohol intake frequency: holidays/special occasions only Patient Tobacco Use Status: Former Tobacco user Quit Date: age 32 Tobacco use type: Cigarette Second Hand Smoke Exposure: Yes Advance Directives Date on File: 02/15/10 Current occupational status: retired Narrative Narrative: No recent illness No CP/SOB with activity. Is primary caregiver to with alzheimers. Able to carry laundry basket up a flight of stairs without SOB or CP. Meds Allergies Allergy/AdvReac Type Severity Reaction Status Date / Time No Known Allergies Allergy Verified 12/14/21 10:15 Home Medications Medication Instructions Recorded Confirmed Last Taken Type denosumab 120 mg/1.7 mL (70 mg/mL) 120 mg SUBCUT Q4W 07/28/20 12/08/21 Unknown History subcutaneous solution (Xgeva) leuprolide (6 month) 45 mg (6 45 mg SUBCUT [id number] 07/28/20 12/08/21 Unknown History month) subcutaneous syringe (Eligard) omeprazole magnesium 20 mg 20 mg PO DAILY PRN 12/18/20 12/08/21 Unknown History capsule,delayed release atorvastatin 80 mg tablet 80 mg PO BEDTIME 12/08/21 12/08/21 Unknown History glipizide 2.5 mg tablet, extended 2.5 mg PO BEDTIME 12/08/21 12/08/21 Unknown History release 24 hr vit C 250 mg-vit E 90 mg-zinc 40 1 tab PO QAM 12/08/21 12/08/21 Unknown History mg-copper 1 [id number] capsule (PreserVision AREDS-2) Exam Exam Date and Time: December 08, 2021 1234 Height,Weight and Vital Signs: Height 5 ft 9 in Weight 90.809 kg Last Vital Signs Pulse 86 12/08/21 12:22 Resp 20 12/08/21 12:22 BP 120/68 12/08/21 12:22 Pulse Ox 97 12/08/21 12:22 Pertinent Lab Results Pertinent Lab Results: Laboratory Tests 11/30/21 11/30/21 11:05 11:05 WBC 4.4 L Hgb 11.5 L Hct 36.0 L Plt Count 228 Sodium 142 Potassium 4.2 Chloride 106 Carbon Dioxide 26 BUN 20 H Creatinine 1.00 Narrative Narrative: EKG 11/2021 sinus rhythm 85/Min; nonspecific Q-waves in inferior leads; PVC ECHO 02/2021 Conclusions: - 1. Normal LV systolic function ? 2. Moderate eccentric aortic regurgitation ? 3. Mildly dilated ascending aorta at 3.8 cm? 4. No pericardial effusion ? Airway Mallampati Class: II TM Dist: >3cm Neck ROM: Full Adult Head Mouth w/Numbe Teeth: 1. Loose Loose/Missing/Broken Teeth: Yes (Permanent bridge upper and lower) Heart: RRR Lungs: CTAB Assessment and Plan Assessment Anesthesia Assessment: Anesthesia Plan Discussed and PAT Visit Documented by User: Bon Haynes MD 12/14/21 15:05 [facility] Past Medical History Medical History Acquired hypothyroidism Ascending aorta dilatation COVID-19 vaccine series completed Diabetes mellitus Family history of anesthesia complication GERD without esophagitis History of chemotherapy Legionella pneumonia Non-rheumatic aortic regurgitation Overweight (BMI 25.0-29.9) Port-A-Cath in place Primary osteoarthritis of right knee Prostate cancer metastatic to bone Pure hypercholesterolemia Radiation proctitis Family History Family History Father No problems noted. Mother No problems noted. Family history of problems with anesthesia: No Surgical History Surgical History H/O colonoscopy History of appendectomy History of left inguinal hernia repair (~02/2011) History of prostatectomy (~03/31/07) History of shoulder surgery History of Problems with Anesthesia: No Social History Social History Household Members: Spouse Housing: House Are you a primary palliative care coordinator to a significant other at home: Yes ( has Alzheimers and is bedridden) Do you presently have visiting nurse or other home services: No ( is on hospice care) Alcohol intake: current Alcohol intake frequency: holidays/special occasions only Patient Tobacco Use Status: Former Tobacco user Quit Date: age 32 Tobacco use type: Cigarette Second Hand Smoke Exposure: Yes Advance Directives Date on File: 02/15/10 Current occupational status: retired Meds Allergies Allergy/AdvReac Type Severity Reaction Status Date / Time No Known Allergies Allergy Verified 12/14/21 10:15 Home Medications Medication Instructions Recorded Confirmed Last Taken Type denosumab 120 mg/1.7 mL (70 mg/mL) 120 mg SUBCUT Q4W 07/28/20 12/08/21 Unknown History subcutaneous solution (Xgeva) leuprolide (6 month) 45 mg (6 45 mg SUBCUT [id number] 07/28/20 12/08/21 Unknown History month) subcutaneous syringe ([employer]) omeprazole magnesium 20 mg 20 mg PO DAILY PRN 12/18/20 12/08/21 Unknown History capsule,delayed release atorvastatin 80 mg tablet 80 mg PO BEDTIME 12/08/21 12/08/21 Unknown History glipizide 2.5 mg tablet, extended 2.5 mg PO BEDTIME 12/08/21 12/08/21 Unknown History release 24 hr vit C 250 mg-vit E 90 mg-zinc 40 1 tab PO QAM 12/08/21 12/08/21 Unknown History mg-copper 1 [id number]-[id number]-oztlce capsule (PreserVision AREDS-2) Exam Airway Adult Head Mouth w/Numbe Teeth: 1. Loose Assessment and Plan Final Anesthetic Review Family History of Problems with Anesthesia: No History of Problems with Anesthesia: No NPO: Yes ASA Class: III Final Preanesthetic Review: No Changes in Pt Med Stat, Meds/Allgs Chart Reviewed, Consent Obtained/Reviewed and Anes Risks/Benef Reviewed Patient Risk: Intermediate Procedure Risk: Intermediate Anesthetic Plan Anesthetic Plan: MAC:, Spinal and Regional Block Disposition: Standard PACU
[2021-12-08 14:59] LABS: MRSA Nasal PCR NEGATIVE (Negative); SA Nasal PCR POSITIVE (Negative)
[2021-12-14] VITALS (14 sets, daily range): BP systolic 108–139; BP diastolic 61–92; PULSE 69–97; RESP 14–18; TEMP 36.2–36.9; O2SAT 93–100
--- NOTE | ~2021-12-14 | XR_ITS ---
EXAMINATION: XR KNEE, RIGHT CLINICAL INFORMATION: Right knee replacement COMPARISON: Previous x-ray October 2021 TECHNIQUE: Two views of the right knee. FINDINGS: There is a new 3 component right knee replacement in satisfactory position. No fracture or dislocation is seen. There are postoperative changes to the soft tissues. XR/XR knee RT 2V IMPRESSION: Satisfactory position of right knee replacement.
--- NOTE | 2021-12-14 07:50 | MHC.SHP ---
Pre-Procedural Eval Section A Date of Service: 12/14/21 The patient is an INPATIENT: No Changes since office visit: Yes Patient answered all questions; No Cold of Flu in the past 2 weeks, No New Medical Problems and No Changes in Medication The History & Physical has been completed within 30 days and I have reviewed it.: Yes Section B Chief Complaint: Osteoarthritis Right Knee Allergies: Allergies Allergy/AdvReac Type Severity Reaction Status Date / Time No Known Allergies Allergy Verified 12/09/21 12:56 Plan I have reviewed the history and physical and performed a pertinent physical examination on my patient. No changes have occurred unless specified.
[2021-12-14 10:31] LABS: COVID-19 Test Negative (Negative); IDNOW Serial# 16C4AD1C
[2021-12-14 10:45] LABS: Glucose, Whole Blood 138 mg/dL (60-115)
[2021-12-14] MEDS: Lactated Ringers 1,000 ML 100 ML IVCONT (11:00)
--- NOTE | 2021-12-14 11:04 | PC.NURSE ---
rt chest portacath accessed without difficulties. ivf running well.
--- NOTE | 2021-12-14 12:54 | P.BOP_ITS ---
Brief Operative Note Date of Service: 12/14/21 Pre-op diagnosis: right knee OA Post-op diagnosis: same Procedure: Right TKA Implants: [employer] Tri[employer]on press fit cruciate retaining /a Surgeon: Otoniel Fink MD Anesthesia: regional and spinal Was an Programming Specialist used for this Procedure?: Yes Programming Specialist: Dustin Kenny Estimated blood loss (mL): 150 IV fluids (mL): 1,000 Pathology: other Condition: stable Disposition: PACU
--- NOTE | 2021-12-14 12:59 | P.OP_ITS ---
Operative Note Operative Note Date of Service: 12/14/21 Narrative: Pre-op diagnosis: right knee OA Post-op diagnosis: same Procedure: Right TKA Implants: [place] Tri[employer] press fit cruciate retaining 12/27/9CR/35a Surgeon: Otoniel Fink MD Anesthesia: regional and spinal Was an Supervisor Securities Vault used for this Procedure?: Yes Supervisor Securities Vault: Dustin Kenny Estimated blood loss (mL): 150 IV fluids (mL): 1,000 Pathology: other Condition: stable Disposition: PACU Procedure in detail: The patient was brought to the operating room and prepped and draped in standard sterile fashion. A time-out was called to identify proper site proper procedure proper surgeon and IV antibiotics were administered. 1 g of IV tranexamic acid was administered. I began by making a midline incision to the retinaculum and performed a medial parapatellar arthrotomy. The patella was translated laterally and the knee was flexed up THe medial compartment was eburnated. I performed a small medial peel and resected the infrapatellar fat pad. Pulaski's line was then used to drill my intramedullary femoral guide and my distal femur cut of 10 mm was made in 5 degrees of valgus while protecting the soft tissues. I then measured a # 4 femur and placed my cutting guide and made my anterior posterior and chamfer cuts protecting the soft tissues at all times. Once I was satisfied with my cuts I turned my attention to the tibia. I removed the meniscus medially and laterally and , using an external cutting guide, in line with the tibial crest and the third ray, I made my tibial cut in 3 deg slope of while protecting the PCL the posterior soft tissues at all times. An extension block was used to confirm appropriate amount of bony resection. ( 2mm off the medial plateau). I then sized a #4 tibia and once I was satisfied that there was complete tibial coverage I placed my trial and with the trial femur in place took the knee through range of motion. I was satisfied with the extension and flexion as well as the stability and varus/vlagus balance at 0, 30 and 90 degrees. I then turned my attention to the patella where I removed 1 cm from the undersurface of the patella and then trialed a 35a patellar button. Again the knee was taken through range of motion I was satisfied with the tracking. I then returned to the femur and drilled my femoral lug holes and prepared the tibia. A femoral bone plug was placed and the knee was irrigated copiously. I then press fit the patella, tibia and femur in standard fashion. I trialed different inserts until I selected a #9 insert. The final insert was placed and a 3 minutes iodine soak with local TXA was performed. A Werewolf hemostasis wand was used to maintain hemostasis over the capsule and meniscal beds, the gutters and peripatellar soft tissues. The knee was then closed with a running Quill suture, a 3 0 Vicryl and jessica on the skin. Patient was then placed in sterile dressing and brought to recovery room in stable condition there were no known complications.
--- NOTE | 2021-12-14 16:58 | PM.IMCN ---
History of Present Illness Data of Consult Service Date: 12/14/21 Primary Care Provider: Héctor Perla MD HPI Reason for consult: dm 81M admitted s/p elective right total knee arthroplasty for osteoarthritis. post op patient states he is doing well, denies chest pain, sob, severe pain. Review of Systems Review of Systems: Constitutional: Denies fever, denies Chills Eyes: denies blurry vision ENT: denies sore throat CVS: denies chest pain Respiratory: Denies dyspnea GI: no abdominal pain : denies dysuria MSK: denies neck pain Skin: denies rash Neuro: denies specific motor weakness Psych: denies suicidal ideation Endocrine: denies heat/cold intolerance Hematologic: denies easy bleeding Allergy: denies hives PMFSH Medical History Acquired hypothyroidism Ascending aorta dilatation COVID-19 vaccine series completed Diabetes mellitus Family history of anesthesia complication GERD without esophagitis History of chemotherapy Legionella pneumonia Non-rheumatic aortic regurgitation Overweight (BMI 25.0-29.9) Port-A-Cath in place Primary osteoarthritis of right knee Prostate cancer metastatic to bone Pure hypercholesterolemia Radiation proctitis Family History Father No problems noted. Mother No problems noted. Surgical History H/O colonoscopy History of appendectomy History of left inguinal hernia repair (~02/2011) History of prostatectomy (~03/31/07) History of shoulder surgery Social History Household Members: Spouse Housing: House Are you a primary managed care analyst to a significant other at home: Yes ( has Alzheimers and is bedridden) Do you presently have visiting nurse or other home services: No ( is on hospice care) Alcohol intake: current Alcohol intake frequency: holidays/special occasions only Patient Tobacco Use Status: Former Tobacco user Quit Date: age 32 Tobacco use type: Cigarette Second Hand Smoke Exposure: Yes Advance Directives Date on File: 02/15/10 Current occupational status: retired Meds Allergies Allergy/AdvReac Type Severity Reaction Status Date / Time No Known Allergies Allergy Verified 12/14/21 10:15 Active Medications: Current Medications Acetaminophen (Acetaminophen 325 Mg Tablet) 650 mg PO Q6H PRN PRN Reason: Pain, Mild (Pain Scale 1-3) Atorvastatin Calcium (Atorvastatin Calcium 80 Mg Tablet) 80 mg PO BEDTIME [facility] Celecoxib (Celecoxib 200 Mg Capsule) 200 mg PO BID [facility] Dextrose (Dextrose 50 % 25 Gm/50 Ml Vial) 25 gm IVPUSH Q15M PRN; Protocol PRN Reason: per Hypoglycemia Standing Ord. Docusate Sodium (Docusate Sodium 100 Mg Capsule) 100 mg PO BID [facility] Glucose (Glucose Gel 15 Gm Gel..Gram.) 15 gm PO Q15M PRN; Protocol PRN Reason: per Hypoglycemia Standing Ord. Hydromorphone HCl (Hydromorphone Hcl 1 Mg/Ml Syringe) 0.25 mg IVPUSH Q4H PRN; Protocol PRN Reason: Pain, Severe (Pain Scale 7-10) Cefazolin Sodium/Dextrose (Ancef) 2 gm in 50 mls @ 100 mls/hr IV POSTOP ONE Stop: 12/14/21 17:29 Insulin Human Lispro (Insulin Lispro 100 Unit/Ml 3 Ml Vial) 0 unit SUBCUT QIDACHS [facility]; Protocol Levothyroxine Sodium (Levothyroxine Sodium 88 Mcg Tablet) 88 mcg PO DAILY@0600 [facility] Multivitamins/Vitamin C (Multivitamin Tablet) 1 tab PO DAILY [facility] Omeprazole (Omeprazole 20 Mg Capsule.Dr) 20 mg PO DAILY@0630 [facility] Ondansetron HCl (Ondansetron Hcl 4 Mg/2 Ml Vial) 4 mg IVPUSH Q8H PRN PRN Reason: Nausea and Vomiting Oxycodone HCl (Oxycodone Hcl Immed Release 5 Mg Tablet) 5 mg PO Q4H PRN PRN Reason: Pain, Moderate (Pain Scale 4-6 Oxycodone HCl (Oxycodone Hcl Er 10 Mg Tab.Er.12h) 10 mg PO BID [facility] Sodium Chloride (0.9 % Sodium Chloride Flush 3 Ml Syringe) 3 ml IVFLUSH QSHIFT [facility] Home Medications Medication Instructions Recorded Confirmed Last Taken Type denosumab 120 mg/1.7 mL (70 mg/mL) 120 mg SUBCUT Q4W 07/28/20 12/08/21 Unknown History subcutaneous solution (Xgeva) leuprolide (6 month) 45 mg (6 45 mg SUBCUT [id number] 07/28/20 12/08/21 Unknown History month) subcutaneous syringe (Eligard) omeprazole magnesium 20 mg 20 mg PO DAILY PRN 12/18/20 12/08/21 Unknown History capsule,delayed release atorvastatin 80 mg tablet 80 mg PO BEDTIME 12/08/21 12/08/21 Unknown History glipizide 2.5 mg tablet, extended 2.5 mg PO BEDTIME 12/08/21 12/08/21 Unknown History release 24 hr vit C 250 mg-vit E 90 mg-zinc 40 1 tab PO QAM 12/08/21 12/08/21 Unknown History mg-copper 1 [id number] capsule (PreserVision AREDS-2) Physical Exam Vital Signs and Narrative: Vital Signs: Last Vital Signs Temp 97.5 F 12/14/21 15:44 Pulse 89 12/14/21 15:44 Resp 16 12/14/21 15:44 BP 124/71 12/14/21 15:44 Pulse Ox 96 12/14/21 15:44 BMI result Body Mass Index 29.5 General: AO X 3, no acute distress Resp: CTA bilateral, no accessory muscles used CVS: S1,S2,RRR GI: soft, non tender, non distended Neuro: motor grossly intact, alert Psych: appropriate affect, appropriate insight Results Labs Labs: Laboratory Results - last 24 hr 12/14/21 12/14/21 10:05 10:40 POC Glucose 138 H COVID-19 (HEATHER) Negative COVID-19 Clin Com See Note Imaging Radiologist's Impressions: Impressions Knee X-Ray 12/14/21 13:50 IMPRESSION: Satisfactory position of right knee replacement. Assessment and Plan (1) Prostate cancer metastatic to bone: Status: Chronic Plan 81M admitted for right TKA s/p right TKA management per ortho DM/?preDM hold glipizide insulin sliding scale hld statin hypothyroid synthroid prostate cancer with bone mets outpatient follow up
[2021-12-14 17:24] LABS: Glucose, Whole Blood 291 mg/dL (60-115)
[2021-12-14] MEDS: ceFAZolin Sodium/Dextrose,Iso 2 GM/50 ML PIGGYBACK IV (17:52)
[2021-12-14] MEDS: 0.9 % Sodium Chloride Flush 3 ML SYRINGE IVFLUSH (17:53)
[2021-12-14] MEDS: HYDROmorphone HCl 1 MG/ML SYRINGE 0.25 MG IVPUSH (18:45)
[2021-12-14 20:05] LABS: Glucose, Whole Blood 291 mg/dL (60-115)
[2021-12-14] MEDS: Insulin Lispro 100 UNIT/ML 3 ML VIAL SUBCUT (20:23)
[2021-12-14] MEDS: Atorvastatin Calcium 80 MG TABLET PO (20:23)
[2021-12-14] MEDS: Celecoxib 200 MG CAPSULE PO (20:23)
[2021-12-14] MEDS: oxyCODONE HCl ER 10 MG TAB.ER.12H PO (20:23)
[2021-12-14] MEDS: Docusate Sodium 100 MG CAPSULE PO (20:27)
[2021-12-14] MEDS: traZODone HCL 25 MG HALFTAB PO (22:45)
[2021-12-14] MEDS: oxyCODONE HCl Immed Release 5 MG TABLET PO (22:50)
[2021-12-15] MEDS: HYDROmorphone HCl 1 MG/ML SYRINGE 0.25 MG IVPUSH (01:57)
[2021-12-15] MEDS: 0.9 % Sodium Chloride Flush 3 ML SYRINGE IVFLUSH ×3 (01:58→20:49)
[2021-12-15 03:38] VITALS: BP 140/71; PULSE 92; RESP 18; TEMP 36.2; O2SAT 94
[2021-12-15] MEDS: Omeprazole 20 MG CAPSULE.DR PO (05:32)
[2021-12-15] MEDS: Levothyroxine Sodium 88 MCG TABLET PO (05:32)
[2021-12-15 05:48] LABS: MANUAL DIFF FLAG NO
[2021-12-15 05:59] LABS: Hematocrit 30.9 % (42.0-52.0); Hemoglobin 9.8 g/dl (14.0-18.0); Imm Gran Abs Auto 0.03 X10*3/uL (0.00-0.03); Imm Gran Pct Auto 0.5 % (0.0-0.4); Lymphocytes Absolute Auto 0.8 X10*3/uL (1.2-4.9); Lymphocytes Percent Auto 11.4 % (20-40); Mean Corpuscular HGB Conc 31.7 g/dl (31.0-36.0); Mean Corpuscular Hemoglobin 31.1 pg (27.0-33.0); Mean Corpuscular Volume 98.1 fL (80.0-98.0); Mean Platelet Volume 9.2 fL (9.4-12.4); Monocytes Absolute Auto 0.8 X10*3/uL (0.1-1.2); Monocytes Percent Auto 12.6 % (2-11); Neutrophils Percent Auto 75.5 % (45-73); Platelet Count 207 X10*3/uL (160-400); Red Blood Count 3.15 X10*6/uL (4.60-5.80); Red Cell Distribution Width 13.2 % (11.0-16.0); White Blood Count 6.6 X10*3/uL (4.8-10.8)
[2021-12-15 06:09] LABS: Glucose, Whole Blood 126 mg/dL (60-115)
[2021-12-15 06:19] LABS: Anion Gap 15 (12-20); Blood Urea Nitrogen 27 mg/dL (9-16); Calcium 8.5 mg/dL (8.4-10.2); Carbon Dioxide 23 mmol/L (22-29); Chloride 105 mmol/L (96-108); Creatinine Clr Calc Pharmacy 64.1; Estimated Glomerular Filt Rate > 60; Glucose Fasting 209 mg/dL (60-99); Potassium 4.3 mmol/L (3.3-5.1); Sodium 139 mmol/L (135-145)
[2021-12-15] MEDS: oxyCODONE HCl Immed Release 5 MG TABLET PO ×2 (06:27→23:40)
[2021-12-15] MEDS: Acetaminophen 325 MG TABLET 650 MG PO ×2 (06:27→23:40)
--- NOTE | 2021-12-15 07:22 | PHA.MEDREC ---
Pharmacy Consult ? Medication Reconciliation Pharmacy has reviewed the medication reconciliation completed by Moncho Mitchell. Zofia Aguilar, PharmD
[2021-12-15 07:29] VITALS: BP 127/59; PULSE 72; RESP 18; TEMP 37; O2SAT 93
--- NOTE | 2021-12-15 07:44 | P.PNOP_ITS ---
Subjective Subjective Date of Service: 12/15/21 Interval history: POD1 s/p RTKA. No overnight events. Pain is well managed. No additional complaints. Physical Exam Vital Signs: Vital Signs: Last Vital Signs Temp 98.6 F 12/15/21 07:29 Pulse 72 12/15/21 07:29 Resp 18 12/15/21 07:29 BP 127/59 L 12/15/21 07:29 Pulse Ox 93 12/15/21 07:29 BMI result Body Mass Index 29.5 Const: General: cooperative, healthy appearing and no acute distress Resp: Effort & Inspection: normal respiratory effort and able to speak in complete sentences Cardio: Rate: regular rate Peripheral pulses: Peripheral pulses 2+ throughout GI: Palpation (GI): Soft to palpation Skin: Lesions: no lesions Rashes: no rashes Extrem: Other: Right knee aquacel is clean, dry, and intact. NVI. Procedures Date of Service Date of Service: 12/15/21 Progress Note: A&P Assessment and plan (1) Status post total knee replacement, right: Status: Acute Assessment and Plan: Continue pain mgmnt Begin Lovenox for dvt ppx begin PT for RTKA Dispo planning-Pending PT eval, pain mgmnt Fall Risk Details Current Medications: Current Medications Acetaminophen (Acetaminophen 325 Mg Tablet) 650 mg PO Q6H PRN PRN Reason: Pain, Mild (Pain Scale 1-3) Last Admin: 12/15/21 06:27 Dose: 650 mg Documented by: Atorvastatin Calcium (Atorvastatin Calcium 80 Mg Tablet) 80 mg PO BEDTIME [facility] Last Admin: 12/14/21 20:23 Dose: 80 mg Documented by: Celecoxib (Celecoxib 200 Mg Capsule) 200 mg PO BID [facility] Last Admin: 12/14/21 20:23 Dose: 200 mg Documented by: Dextrose (Dextrose 50 % 25 Gm/50 Ml Vial) 25 gm IVPUSH Q15M PRN; Protocol PRN Reason: per Hypoglycemia Standing Ord. Docusate Sodium (Docusate Sodium 100 Mg Capsule) 100 mg PO BID [facility] Last Admin: 12/14/21 20:27 Dose: 100 mg Documented by: Enoxaparin Sodium (Enoxaparin Sodium 40 Mg/0.4 Ml Syringe) 40 mg SUBCUT Q24H [facility] Glucose (Glucose Gel 15 Gm Gel..Gram.) 15 gm PO Q15M PRN; Protocol PRN Reason: per Hypoglycemia Standing Ord. Hydromorphone HCl (Hydromorphone Hcl 1 Mg/Ml Syringe) 0.25 mg IVPUSH Q4H PRN; Protocol PRN Reason: Pain, Severe (Pain Scale 7-10) Last Admin: 12/15/21 01:57 Dose: 0.25 mg Documented by: Insulin Human Lispro (Insulin Lispro 100 Unit/Ml 3 Ml Vial) 0 unit SUBCUT QIDACHS [facility]; Protocol Last Admin: 12/14/21 20:23 Dose: 6 unit Documented by: Levothyroxine Sodium (Levothyroxine Sodium 88 Mcg Tablet) 88 mcg PO DAILY@0600 [facility] Last Admin: 12/15/21 05:32 Dose: 88 mcg Documented by: Multivitamins/Vitamin C (Multivitamin Tablet) 1 tab PO DAILY [facility] Omeprazole (Omeprazole 20 Mg Capsule.Dr) 20 mg PO DAILY@0630 [facility] Last Admin: 12/15/21 05:32 Dose: 20 mg Documented by: Ondansetron HCl (Ondansetron Hcl 4 Mg/2 Ml Vial) 4 mg IVPUSH Q8H PRN PRN Reason: Nausea and Vomiting Oxycodone HCl (Oxycodone Hcl Immed Release 5 Mg Tablet) 5 mg PO Q4H PRN PRN Reason: Pain, Moderate (Pain Scale 4-6 Last Admin: 12/15/21 06:27 Dose: 5 mg Documented by: Oxycodone HCl (Oxycodone Hcl Er 10 Mg Tab.Er.12h) 10 mg PO BID [facility] Last Admin: 12/14/21 20:23 Dose: 10 mg Documented by: Sodium Chloride (0.9 % Sodium Chloride Flush 3 Ml Syringe) 3 ml IVFLUSH QSHIFT [facility] Last Admin: 12/15/21 01:58 Dose: 3 ml Documented by: Time Spent With Patient Time: Total time spent is greater than 50% in coordination of care (as documented) at patient's floor/unit and/or counseling patient: Quality Stroke Does the patient have a stroke diagnosis?: No VTE Prior VTE?: No VTE Risk Level:: Surgical - very high VTE Device Contraindication: N/A - Device Ordered VTE Drug Contraindication: N/A - Med Ordered
[2021-12-15 07:46] LABS: Glucose, Whole Blood 199 mg/dL (60-115)
[2021-12-15] MEDS: Celecoxib 200 MG CAPSULE PO ×2 (09:55→20:49)
[2021-12-15] MEDS: Docusate Sodium 100 MG CAPSULE PO ×2 (09:55→20:49)
[2021-12-15] MEDS: Insulin Lispro 100 UNIT/ML 3 ML VIAL SUBCUT ×3 (09:55→20:50)
[2021-12-15] MEDS: Multivitamin TABLET 1 TAB PO (09:56)
[2021-12-15] MEDS: oxyCODONE HCl ER 10 MG TAB.ER.12H PO ×2 (09:56→20:48)
--- NOTE | 2021-12-15 10:22 | MHC.CM.PN ---
met with pt who lives with his pts son will transport home dc plan home with [facility] for graciela lind pt
--- NOTE | 2021-12-15 11:37 | MHC.CLN ---
NUTRITION DIET CHANGED TO DIABETIC 2000 KCAL. PATIENT WITH DX DM AND TAKES INSULIN.
[2021-12-15 11:53] LABS: Glucose, Whole Blood 238 mg/dL (60-115)
[2021-12-15 11:54] VITALS: BP 105/55; PULSE 85; RESP 18; TEMP 36.8; O2SAT 95
[2021-12-15] MEDS: Enoxaparin Sodium 40 MG/0.4 ML SYRINGE SUBCUT (12:30)
--- NOTE | 2021-12-15 13:25 | MHC.CM.PN ---
nereida is in the home seeing his for hospice they will accept pt for home pt ,pt willing to learn lovenox injections prior to dc
--- NOTE | 2021-12-15 13:45 | HO.PM.IMPN ---
Subjective Subjective Date of Service: 12/15/21 Review of Systems follow-up consult for right total knee arthroplasty Sitting up eating breakfast Minimal amount of pain at this time Physical Exam Vital Signs: Vital Signs: Last Vital Signs Temp 98.3 F 12/15/21 11:54 Pulse 85 12/15/21 11:54 Resp 18 12/15/21 11:54 BP 105/55 L 12/15/21 11:54 Pulse Ox 95 12/15/21 11:54 BMI result Body Mass Index 29.5 Appearing in no acute distress lung sounds are clear to auscultation heart regular rate rhythm, clear S1, S2 positive bowel sounds, abdomen is soft, nontender neuro patient is alert x3, no focal deficits Surgical dressing intact to the right knee, surgical incision not visualized Objective Data Active Medications Acetaminophen (Acetaminophen 325 Mg Tablet) 650 mg PO Q6H PRN PRN Reason: Pain, Mild (Pain Scale 1-3) Last Admin: 12/15/21 06:27 Dose: 650 mg Documented by: CASTILGerson Atorvastatin Calcium (Atorvastatin Calcium 80 Mg Tablet) 80 mg PO BEDTIME [facility] Last Admin: 12/14/21 20:23 Dose: 80 mg Documented by: CRIS Celecoxib (Celecoxib 200 Mg Capsule) 200 mg PO BID [facility] Last Admin: 12/15/21 09:55 Dose: 200 mg Documented by: ROSELYN Dextrose (Dextrose 50 % 25 Gm/50 Ml Vial) 25 gm IVPUSH Q15M PRN; Protocol PRN Reason: per Hypoglycemia Standing Ord. Docusate Sodium (Docusate Sodium 100 Mg Capsule) 100 mg PO BID [facility] Last Admin: 12/15/21 09:55 Dose: 100 mg Documented by: ROSELYN Enoxaparin Sodium (Enoxaparin Sodium 40 Mg/0.4 Ml Syringe) 40 mg SUBCUT Q24H [facility] Last Admin: 12/15/21 12:30 Dose: 40 mg Documented by: ROSELYN Glucose (Glucose Gel 15 Gm Gel..Gram.) 15 gm PO Q15M PRN; Protocol PRN Reason: per Hypoglycemia Standing Ord. Hydromorphone HCl (Hydromorphone Hcl 1 Mg/Ml Syringe) 0.25 mg IVPUSH Q4H PRN; Protocol PRN Reason: Pain, Severe (Pain Scale 7-10) Last Admin: 12/15/21 01:57 Dose: 0.25 mg Documented by: СЕРГЕЙ Insulin Human Lispro (Insulin Lispro 100 Unit/Ml 3 Ml Vial) 0 unit SUBCUT QIDACHS [facility]; Protocol Last Admin: 12/15/21 12:30 Dose: 4 unit Documented by: ROSELYN Levothyroxine Sodium (Levothyroxine Sodium 88 Mcg Tablet) 88 mcg PO DAILY@0600 [facility] Last Admin: 12/15/21 05:32 Dose: 88 mcg Documented by: СЕРГЕЙ Multivitamins/Vitamin C (Multivitamin Tablet) 1 tab PO DAILY [facility] Last Admin: 12/15/21 09:56 Dose: 1 tab Documented by: ROSELYN Omeprazole (Omeprazole 20 Mg Capsule.Dr) 20 mg PO DAILY@0630 [facility] Last Admin: 12/15/21 05:32 Dose: 20 mg Documented by: СЕРГЕЙ Ondansetron HCl (Ondansetron Hcl 4 Mg/2 Ml Vial) 4 mg IVPUSH Q8H PRN PRN Reason: Nausea and Vomiting Oxycodone HCl (Oxycodone Hcl Immed Release 5 Mg Tablet) 5 mg PO Q4H PRN PRN Reason: Pain, Moderate (Pain Scale 4-6 Last Admin: 12/15/21 06:27 Dose: 5 mg Documented by: СЕРГЕЙ Oxycodone HCl (Oxycodone Hcl Er 10 Mg Tab.Er.12h) 10 mg PO BID [facility] Last Admin: 12/15/21 09:56 Dose: 10 mg Documented by: ROSELYN Sodium Chloride (0.9 % Sodium Chloride Flush 3 Ml Syringe) 3 ml IVFLUSH QSHIFT [facility] Last Admin: 12/15/21 09:57 Dose: 3 ml Documented by: ROSELYN Labs CBC & Chem 7: 12/15/21 05:17 12/15/21 05:17 Labs: Laboratory Results - last 24 hr 12/14/21 12/14/21 12/14/21 13:30 17:15 19:22 MCV MCH MCHC RDW Plt Count MPV Immature Gran % (Auto) Neut % (Auto) Lymph % (Auto) [place] % (Auto) Eos % (Auto) Baso % (Auto) Lymph # (Auto) [place] # (Auto) Eos # (Auto) Baso # (Auto) Abs Immat Gran (auto) Absolute Neuts (auto) Absolute Nucleated RBC Nucleated RBC % (auto) Anion Gap Estim Creat Clear Calc Estimated GFR POC Glucose 126 H 291 H 291 H Fasting Glucose Calcium 12/15/21 12/15/21 12/15/21 05:17 05:17 07:28 MCV 98.1 H MCH 31.1 MCHC 31.7 RDW 13.2 Plt Count 207 MPV 9.2 L Immature Gran % (Auto) 0.5 H Neut % (Auto) 75.5 H Lymph % (Auto) 11.4 L [place] % (Auto) 12.6 H Eos % (Auto) 0.0 Baso % (Auto) 0.0 Lymph # (Auto) 0.8 L [place] # (Auto) 0.8 Eos # (Auto) 0.0 Baso # (Auto) 0.0 Abs Immat Gran (auto) 0.03 Absolute Neuts (auto) 5.0 Absolute Nucleated RBC 0.000 Nucleated RBC % (auto) 0.0 Anion Gap 15 Estim Creat Clear Calc 64.1 Estimated GFR > 60 POC Glucose 199 H Fasting Glucose 209 H Calcium 8.5 D 12/15/21 11:45 MCV MCH MCHC RDW Plt Count MPV Immature Gran % (Auto) Neut % (Auto) Lymph % (Auto) [place] % (Auto) Eos % (Auto) Baso % (Auto) Lymph # (Auto) [place] # (Auto) Eos # (Auto) Baso # (Auto) Abs Immat Gran (auto) Absolute Neuts (auto) Absolute Nucleated RBC Nucleated RBC % (auto) Anion Gap Estim Creat Clear Calc Estimated GFR POC Glucose 238 H Fasting Glucose Calcium Assessment and Plan (1) Pure hypercholesterolemia: Status: Acute Plan 81-year-old man admitted by Orthopedic surgery and is status post right total knee arthroplasty s/p right TKA management per ortho DM hold glipizide insulin sliding scale hld statin hypothyroid synthroid prostate cancer with bone mets outpatient follow up Attending Dr. Cope Full code DVT prophylaxis as per admitting team Medical consultation completed. Will sign off. Quality Stroke Does the patient have a stroke diagnosis?: No VTE Prior VTE?: No VTE Risk Level:: Surgical - very high VTE Device Contraindication: N/A - Device Ordered VTE Drug Contraindication: N/A - Med Ordered
--- NOTE | 2021-12-15 15:29 | HO.POSTANES ---
Post Anesthesia Evaluation Post Anesthesia Evaluation Vital Signs: Vital Signs Temp Pulse Resp BP Pulse Ox 12/15/21 11:54 98.3 F 85 18 105/55 L 95 12/15/21 07:29 98.6 F 72 18 127/59 L 93 12/15/21 03:38 97.1 F 92 18 140/71 H 94 Anesthesia: Spinal and Nerve Block Mental Status: Awake Pain Control: Satisfactory Nausea/Vomiting: None Hydration: Adequate Anesthesia-Related Issues: No Anes. Related Issues
[2021-12-15 15:34] VITALS: BP 105/69; PULSE 87; RESP 18; TEMP 36.6; O2SAT 97
[2021-12-15 16:38] LABS: Glucose, Whole Blood 122 mg/dL (60-115)
[2021-12-15 19:16] VITALS: BP 116/66; PULSE 92; RESP 18; TEMP 36.9; O2SAT 96
[2021-12-15 20:24] LABS: Glucose, Whole Blood 207 mg/dL (60-115)
[2021-12-15] MEDS: Atorvastatin Calcium 80 MG TABLET PO (20:49)
[2021-12-15 23:36] VITALS: BP 107/59; PULSE 82; RESP 16; TEMP 36.3; O2SAT 94
[2021-12-16 03:46] VITALS: BP 119/60; PULSE 95; RESP 16; TEMP 36.1; O2SAT 95
[2021-12-16] MEDS: Omeprazole 20 MG CAPSULE.DR PO (05:43)
[2021-12-16] MEDS: Levothyroxine Sodium 88 MCG TABLET PO (05:43)
[2021-12-16 05:57] LABS: MANUAL DIFF FLAG NO
[2021-12-16 06:08] LABS: Basophils Percent Auto 0.2 % (0-2); Eosinophils Percent Auto 0.6 % (0-4); Hematocrit 28.1 % (42.0-52.0); Hemoglobin 8.9 g/dl (14.0-18.0); Imm Gran Abs Auto 0.03 X10*3/uL (0.00-0.03); Imm Gran Pct Auto 0.5 % (0.0-0.4); Lymphocytes Absolute Auto 0.6 X10*3/uL (1.2-4.9); Lymphocytes Percent Auto 9.4 % (20-40); Mean Corpuscular HGB Conc 31.7 g/dl (31.0-36.0); Mean Corpuscular Hemoglobin 31.3 pg (27.0-33.0); Mean Corpuscular Volume 98.9 fL (80.0-98.0); Mean Platelet Volume 9.2 fL (9.4-12.4); Monocytes Absolute Auto 0.7 X10*3/uL (0.1-1.2); Monocytes Percent Auto 11.2 % (2-11); Neutrophils Absolute Auto 4.9 x10*3/uL (2.0-8.3); Neutrophils Percent Auto 78.1 % (45-73); Platelet Count 170 X10*3/uL (160-400); Red Blood Count 2.84 X10*6/uL (4.60-5.80); Red Cell Distribution Width 13.2 % (11.0-16.0); White Blood Count 6.3 X10*3/uL (4.8-10.8)
[2021-12-16 06:27] LABS: Anion Gap 13 (12-20); Blood Urea Nitrogen 25 mg/dL (9-16); Calcium 8.2 mg/dL (8.4-10.2); Carbon Dioxide 22 mmol/L (22-29); Chloride 105 mmol/L (96-108); Creatinine Clr Calc Pharmacy 62.3; Estimated Glomerular Filt Rate > 60; Glucose Fasting 202 mg/dL (60-99); Potassium 4.3 mmol/L (3.3-5.1); Sodium 136 mmol/L (135-145)
[2021-12-16 07:19] VITALS: BP 132/80; PULSE 82; RESP 18; TEMP 36.5; O2SAT 92
[2021-12-16 07:45] LABS: Glucose, Whole Blood 191 mg/dL (60-115)
[2021-12-16] MEDS: oxyCODONE HCl ER 10 MG TAB.ER.12H PO (08:14)
[2021-12-16] MEDS: Insulin Lispro 100 UNIT/ML 3 ML VIAL SUBCUT ×2 (08:14→12:08)
[2021-12-16] MEDS: Docusate Sodium 100 MG CAPSULE PO (08:15)
[2021-12-16] MEDS: Multivitamin TABLET 1 TAB PO (08:15)
[2021-12-16] MEDS: Celecoxib 200 MG CAPSULE PO (08:15)
[2021-12-16] MEDS: 0.9 % Sodium Chloride Flush 3 ML SYRINGE IVFLUSH (08:15)
--- NOTE | 2021-12-16 08:56 | PM.DS ---
DS: Providers Provider Date of Service: 12/16/21 Date of admission: 12/14/21 10:04 Primary care physician: Héctor Perla MD Consults: 12/14/21 16:37 Consult to Hospitalist Routine Consulting Provider: Hospitalist Reason For Exam: DM,CAD DS: Diagnosis Discharge Diagnosis (1) Status post total knee replacement, right: Status: Acute DS: Summary Hospital Course Hospital Course: The patient underwent a successful right total knee arthroplasty, was transferred to PACU and then to the floor to recover. During their stay, their vitals were stable, afebrile at 97.7. Labs were unremarkable, H/H 8.9/28.1. POD 1 he was started on Lovenox for DVT ppx, they also received services twice a day. Prior to discharge, their dressing was change, incision clean dry and intact, new Aquacel dressing applied and the plan was to be discharged Time Spent with Patient Time attestation: Total time spent providing and/or coordinating discharge services: Discharge coordination time: Less than 30 minutes Quality: Stroke Does the patient have a stroke diagnosis?: No Physical Exam Vital Signs: Vital Signs: Last Vital Signs Temp 97.7 F 12/16/21 07:19 Pulse 82 12/16/21 07:19 Resp 18 12/16/21 07:19 BP 132/80 12/16/21 07:19 Pulse Ox 92 12/16/21 07:19 BMI result Body Mass Index 29.5 Const: General: cooperative, healthy appearing and no acute distress Resp: Effort & Inspection: normal respiratory effort and able to speak in complete sentences Cardio: Rate: regular rate Peripheral pulses: Peripheral pulses 2+ throughout GI: Palpation (GI): Soft to palpation Skin: General skin exam: no rashes or lesions noted Extrem: Other: incision clean dry and intact. [place] intact. No erythema or joint effusion. Calf supple nontender. Neurovascularly intact. DS: Data Data Completed and Pending Pending studies at discharge: Pending at discharge 12/14/21 12:34 Surgical [PTH] Routine Labs on day of discharge: Laboratory Results - last 24 hr 12/15/21 12/15/21 12/15/21 11:45 16:23 20:13 WBC RBC Hgb Hct MCV MCH MCHC RDW Plt Count MPV Immature Gran % (Auto) Neut % (Auto) Lymph % (Auto) [place] % (Auto) Eos % (Auto) Baso % (Auto) Lymph # (Auto) [place] # (Auto) Eos # (Auto) Baso # (Auto) Abs Immat Gran (auto) Absolute Neuts (auto) Absolute Nucleated RBC Nucleated RBC % (auto) Sodium Potassium Chloride Carbon Dioxide Anion Gap BUN Creatinine Estim Creat Clear Calc Estimated GFR POC Glucose 238 H 122 H 207 H Fasting Glucose Calcium 12/16/21 12/16/21 12/16/21 05:40 05:40 07:17 WBC 6.3 RBC 2.84 L Hgb 8.9 L Hct 28.1 L MCV 98.9 H MCH 31.3 MCHC 31.7 RDW 13.2 Plt Count 170 MPV 9.2 L Immature Gran % (Auto) 0.5 H Neut % (Auto) 78.1 H Lymph % (Auto) 9.4 L [place] % (Auto) 11.2 H Eos % (Auto) 0.6 Baso % (Auto) 0.2 Lymph # (Auto) 0.6 L [place] # (Auto) 0.7 Eos # (Auto) 0.0 Baso # (Auto) 0.0 Abs Immat Gran (auto) 0.03 Absolute Neuts (auto) 4.9 Absolute Nucleated RBC 0.000 Nucleated RBC % (auto) 0.0 Sodium 136 Potassium 4.3 Chloride 105 Carbon Dioxide 22 Anion Gap 13 BUN 25 H Creatinine 1.07 Estim Creat Clear Calc 62.3 Estimated GFR > 60 POC Glucose 191 H Fasting Glucose 202 H Calcium 8.2 L Discharge Plan Discharge Patient Disposition: Home Health Service Discharge Diagnosis: RTKA Referrals: Dustin Kenny PA-C [Physician Craps Manager] - 1 Week (12/30/21 at 1:30pm) Discharge Medications: New enoxaparin 40 mg/0.4 mL Syringe 40 mg subcut Q24H 42 Days Qty: 16.8 0RF acetaminophen 325 mg Tablet 650 mg PO Q6H PRN (Reason: Pain, Mild (Pain Scale 1-3)) 30 Days Qty: 240 0RF celecoxib 200 mg Capsule 200 mg PO BID 30 Days Qty: 60 0RF docusate sodium 100 mg Capsule 100 mg PO BID 30 Days Qty: 60 0RF oxycodone 5 mg Tablet 5 mg PO Q4H PRN (Reason: Pain, Moderate (Pain Scale 4-6) 7 Days Qty: 42 0RF Continued levothyroxine 88 mcg tablet 88 mcg PO DAILY 90 Days Qty: 90 3RF Eligard (6 month) 45 mg Syringe 45 mg SUBCUT [id number] 0RF Xgeva 120 mg/1.7 mL (70 mg/mL) Solution 120 mg SUBCUT Q4W 0RF Rx Instructions: per dr dualal q5w omeprazole magnesium 20 mg capsule,delayed release(DR/EC) 20 mg PO DAILY PRN (Reason: Indigestion) 0RF PreserVision AREDS-2 250-90-40-1 mg Capsule 1 tab PO QAM 0RF atorvastatin 80 mg tablet 80 mg PO BEDTIME 0RF No Action glipizide 2.5 mg tablet extended release 24 hr 2.5 mg PO BEDTIME Qty: 30 0RF Discharge Orders: Discharge Order (Routine); Ordered 12/16/21 Ordered By: Dustin Kenny Diet: advance to usual diet Activity on Discharge: Use cane or walker Stand Alone Forms: Patient Portal Discharge page Care Plan Goals: Restore fxn to Rt knee Health Concerns: None Plan of Treatment: Physical Therapy for ROM 0-120, quad strength, gait training. Use walker for ambulation Limit stair climbing, No shower, No tub bath, No driving Continue anticoagulant Keep Aquacel dressing clean, dry and intact. Follow up with orthopedics in 2 weeks Assessment: Stable for D/C
--- NOTE | 2021-12-16 09:14 | MHC.CM.PN ---
PER ORTHO PA, PT WILL BE DISCHARGED HOME TODAY WITH [facility] FOR PT AND HALFW[facility]. [facility] HAS DISCUSSED POC WITH PT AND HE INDICATES HE WILL LEARN HIS LOVENOX INJECTIONS.
[2021-12-16 11:17] VITALS: BP 119/56; PULSE 84; RESP 18; TEMP 36.1; O2SAT 90
[2021-12-16 11:57] LABS: Glucose, Whole Blood 196 mg/dL (60-115)
[2021-12-16] MEDS: Enoxaparin Sodium 40 MG/0.4 ML SYRINGE SUBCUT (12:08)
== END 2021-12-16 13:00 | disposition home health service (06) | DRG 470 ==
LOC: HO.SSSA 10:07 → HO.S3 15:14
PROVIDERS: Physician Assistant; Admitting Provider Orthopaedic Surgery; PCP Internal Medicine; Visit Provider Orthopaedic Surgery
PROC: 0SRC0JA Replacement of Right Knee Joint with Synthetic Substitute, Uncemented, Open Approach (ICD-10-PCS; CPT 27447; principal; 2021-12-14 11:50)
DX: M17.11 Unilateral primary osteoarthritis, right knee (principal); C79.51 Secondary malignant neoplasm of bone; E03.9 Hypothyroidism, unspecified; I77.819 Aortic ectasia, unspecified site; E78.5 Hyperlipidemia, unspecified; E11.9 Type 2 diabetes mellitus without complications; C61 Malignant neoplasm of prostate; Z20.822 Contact with and (suspected) exposure to COVID-19; Z79.84 Long term (current) use of oral hypoglycemic drugs; Z87.891 Personal history of nicotine dependence; Z79.890 Hormone replacement therapy; Z79.899 Other long term (current) drug therapy
CPT/HCPCS: 36415; 73560; 80048; 82947; 85025; 86850; 86900; 86901; 87635; 87640; 87641; 88305; 88311; 97110; 97116; 97161; C1776; J0690; J1100; J1170; J1642; J1650

== ENCOUNTER → 2021-12-30 12:54 | Outpatient (BNVA) | payer MEDICARE, SELFPAY | PROVIDERS: PCP Internal Medicine; Visit Provider Physician Assistant | DX: Z48.02 Encounter for removal of sutures (principal); Z96.651 Presence of right artificial knee joint; E03.9 Hypothyroidism, unspecified; E11.9 Type 2 diabetes mellitus without complications; Z87.891 Personal history of nicotine dependence; Z85.46 Personal history of malignant neoplasm of prostate; Z85.830 Personal history of malignant neoplasm of bone; Z92.21 Personal history of antineoplastic chemotherapy | CPT/HCPCS: 99212 ==

== ENCOUNTER → 2022-01-24 10:56 | Outpatient (REF) | payer MEDICARE, BC, SELFPAY ==
--- NOTE | ~2022-01-24 | NM_ITS ---
EXAMINATION: NM BONE SCAN OF THE WHOLE BODY CLINICAL INFORMATION: Prostate cancer, follow-up. COMPARISON: The previous bone scan dated 01/13/2021 is available for comparison. Radiographs of the right knee dated 12/14/2021 are the only recent radiographs available for comparison. TECHNIQUE: Multiple gamma scintillation camera images of the whole body were performed 3 hours following the intravenous administration of 30 mCi Tc-99m MDP. FINDINGS: In the head, there is a focus of mildly increased activity in the posterior aspect of the left frontal bone. An additional subtle focus is present in the right parietal calvarium. In the thoracic cage and upper extremities, there is intense abnormally increased activity present in the right humeral head and an additional small mild focus is present in the distal shaft of the right humerus. Multiple foci of mildly increased activity of markedly varying sizes are present throughout the ribs, sternum, left humeral head, and the medial aspects of both clavicles, more prominently on the right and also in small foci in the left humeral head. In the spine, multiple foci of mildly to moderately increased activity are present throughout the thoracic spine, upper lumbar spine and in a small focus in the lower cervical spine to the right of midline. In the pelvis, foci of mildly increased activity are present in the acetabula bilaterally, on the left extending into the superior aspect of the left ischium an additional small foci of mildly increased activity are present in the sacrum and lateral left iliac crest. In the lower extremities, a photopenic defect from a right total knee prosthesis is noted. There is mildly increased activity in the tibial plateau medially and laterally adjacent to the tibial component as well as a small focus of increased activity in the proximal shaft of the right tibia, distal to the distal aspect of the tibial stem. There are also several small foci of mildly increased activity present in the femoral shafts bilaterally as well as foci of minimally increased activity superiorly in the greater femoral trochanters bilaterally. No other definite bony abnormalities are noted. The urinary bladder and faint visualization of both kidneys are noted. Compared to the previous bone scan dated 01/13/2021, the skull lesions are new, the right humeral head lesion is larger and more intense and there are multiple new lesions in the rib cage, sternum and both humeral shafts and the left humeral head. Lesions present in the ribs on the prior study have enlarged, particularly in the posterior left eighth and ninth ribs. No lesions are present in the left femoral shaft and right tibia. The right knee prosthesis is new. NM/NM bone scan whole body IMPRESSION: Widespread metastatic tumor involvement of bone with significant progression of the bone scan appearance since the 01/13/2021 bone scan.
== END ==
LOC: HO.NUCMED 10:56
PROVIDERS: Visit Provider Internal Medicine
DX: C61 Malignant neoplasm of prostate (principal); C79.51 Secondary malignant neoplasm of bone
CPT/HCPCS: 78306; A9503

== ENCOUNTER 2022-01-27 07:37 | Outpatient (REF) | payer MEDICARE, BC, SELFPAY ==
--- NOTE | ~2022-01-27 | XR_ITS ---
EXAMINATION: 1. RADIOGRAPHS STANDING AP KNEE, BILATERAL 2. RADIOGRAPHS RIGHT KNEE, 2 VIEWS CLINICAL INFORMATION: Bilateral knee pain COMPARISON: Right knee x-rays December 14, 2021 and bilateral knee x-rays October 28, 2021 TECHNIQUE: Standing AP views of both knees were obtained in addition to lateral and patellar sunrise views of the right knee. FINDINGS: Patient is status post right total knee arthroplasty. Components are in expected orientation. There is no evidence of prosthetic loosening. A small suprapatellar joint effusion is noted. Mild vascular calcifications. AP view of the left knee demonstrates mild narrowing of the medial joint space height with subtle chondrocalcinosis. XR/XR knee RT 3V IMPRESSION: -Unremarkable post arthroplasty changes of the right knee. A small suprapatellar joint effusion is noted on the right. -Mild degenerative changes of the medial compartment of the left knee.
--- NOTE | ~2022-01-27 | XR_ITS ---
EXAMINATION: 1. RADIOGRAPHS STANDING AP KNEE, BILATERAL 2. RADIOGRAPHS RIGHT KNEE, 2 VIEWS CLINICAL INFORMATION: Bilateral knee pain COMPARISON: Right knee x-rays December 14, 2021 and bilateral knee x-rays October 28, 2021 TECHNIQUE: Standing AP views of both knees were obtained in addition to lateral and patellar sunrise views of the right knee. FINDINGS: Patient is status post right total knee arthroplasty. Components are in expected orientation. There is no evidence of prosthetic loosening. A small suprapatellar joint effusion is noted. Mild vascular calcifications. AP view of the left knee demonstrates mild narrowing of the medial joint space height with subtle chondrocalcinosis. XR/XR knee standing BI IMPRESSION: -Unremarkable post arthroplasty changes of the right knee. A small suprapatellar joint effusion is noted on the right. -Mild degenerative changes of the medial compartment of the left knee.
== END 2022-01-27 07:38 | disposition home or self-care (01) ==
LOC: HO.HOSX 07:37
PROVIDERS: Visit Provider Physician Assistant
DX: Z47.1 Aftercare following joint replacement surgery (principal); Z96.651 Presence of right artificial knee joint
CPT/HCPCS: 73562; 73565; 99212

== ENCOUNTER 2022-01-31 08:37 | Outpatient (REF) | payer MEDICARE, BC, SELFPAY ==
[2022-01-31 10:14] LABS: MANUAL DIFF FLAG NO
[2022-01-31 10:17] LABS: Basophils Percent Auto 0.5 % (0-2); Eosinophils Absolute Auto 0.1 X10*3/uL (0.0-0.4); Eosinophils Percent Auto 2.1 % (0-4); Hemoglobin 10.9 g/dl (14.0-18.0); Imm Gran Abs Auto 0.02 X10*3/uL (0.00-0.03); Imm Gran Pct Auto 0.5 % (0.0-0.4); Lymphocytes Absolute Auto 1.2 X10*3/uL (1.2-4.9); Lymphocytes Percent Auto 31.8 % (20-40); Mean Corpuscular HGB Conc 32.1 g/dl (31.0-36.0); Mean Corpuscular Hemoglobin 31.1 pg (27.0-33.0); Mean Corpuscular Volume 96.9 fL (80.0-98.0); Mean Platelet Volume 9.1 fL (9.4-12.4); Monocytes Absolute Auto 0.4 X10*3/uL (0.1-1.2); Monocytes Percent Auto 9.4 % (2-11); Neutrophils Absolute Auto 2.1 x10*3/uL (2.0-8.3); Neutrophils Percent Auto 55.7 % (45-73); Platelet Count 246 X10*3/uL (160-400); Red Blood Count 3.51 X10*6/uL (4.60-5.80); Red Cell Distribution Width 14.2 % (11.0-16.0); White Blood Count 3.8 X10*3/uL (4.8-10.8)
[2022-01-31 10:50] LABS: Alanine Aminotransferase 27 U/L (0-40); Albumin Level 4.3 g/dL (3.5-5.0); Alkaline Phosphatase 138 U/L (39-117); Anion Gap 13 (12-20); Aspartate Amino Transferase 27 U/L (5-37); Bilirubin Total 0.4 mg/dL (0.0-1.0); Blood Urea Nitrogen 32 mg/dL (9-16); Carbon Dioxide 26 mmol/L (22-29); Chloride 105 mmol/L (96-108); Estimated Glomerular Filt Rate > 60; Glucose Random 127 mg/dL (60-115); Potassium 4.1 mmol/L (3.3-5.1); Sodium 140 mmol/L (135-145); Total Protein 6.8 g/dL (6.5-8.0)
[2022-01-31 11:06] LABS: Prostate Specific Antigen 82.17 ng/mL (<0.05-4.0)
== END 2022-01-31 08:38 | disposition home or self-care (01) ==
LOC: HO.LHD 08:37
PROVIDERS: Visit Provider Internal Medicine
DX: Z12.5 Encounter for screening for malignant neoplasm of prostate (principal); C61 Malignant neoplasm of prostate
CPT/HCPCS: 36415; 80053; 84153; 85025

== ENCOUNTER 2022-02-18 06:44 | Outpatient (REF) | payer MEDICARE, BC, SELFPAY ==
[2022-02-17 12:48] LABS: MANUAL DIFF FLAG NO
[2022-02-17 12:51] LABS: Basophils Percent Auto 0.5 % (0-2); Eosinophils Absolute Auto 0.1 X10*3/uL (0.0-0.4); Eosinophils Percent Auto 1.4 % (0-4); Hematocrit 33.5 % (42.0-52.0); Hemoglobin 10.8 g/dl (14.0-18.0); Imm Gran Abs Auto 0.03 X10*3/uL (0.00-0.03); Imm Gran Pct Auto 0.8 % (0.0-0.4); Lymphocytes Absolute Auto 0.9 X10*3/uL (1.2-4.9); Lymphocytes Percent Auto 24.2 % (20-40); Mean Corpuscular HGB Conc 32.2 g/dl (31.0-36.0); Mean Corpuscular Hemoglobin 31.2 pg (27.0-33.0); Mean Corpuscular Volume 96.8 fL (80.0-98.0); Mean Platelet Volume 9.1 fL (9.4-12.4); Monocytes Absolute Auto 0.4 X10*3/uL (0.1-1.2); Monocytes Percent Auto 10.9 % (2-11); Neutrophils Absolute Auto 2.3 x10*3/uL (2.0-8.3); Neutrophils Percent Auto 62.2 % (45-73); Platelet Count 231 X10*3/uL (160-400); Red Blood Count 3.46 X10*6/uL (4.60-5.80); Red Cell Distribution Width 14.4 % (11.0-16.0); White Blood Count 3.7 X10*3/uL (4.8-10.8)
[2022-02-17 13:46] LABS: Alanine Aminotransferase 28 U/L (0-40); Albumin Level 4.1 g/dL (3.5-5.0); Alkaline Phosphatase 139 U/L (39-117); Anion Gap 14 (12-20); Aspartate Amino Transferase 21 U/L (5-37); Bilirubin Total 0.5 mg/dL (0.0-1.0); Blood Urea Nitrogen 24 mg/dL (9-16); Calcium 9.1 mg/dL (8.4-10.2); Carbon Dioxide 25 mmol/L (22-29); Chloride 107 mmol/L (96-108); Estimated Glomerular Filt Rate > 60; Glucose Random 118 mg/dL (60-115); Potassium 4.1 mmol/L (3.3-5.1); Sodium 142 mmol/L (135-145); Total Protein 6.6 g/dL (6.5-8.0)
== END 2022-02-18 06:45 | disposition home or self-care (01) ==
LOC: HO.LHD 06:44
PROVIDERS: Visit Provider Internal Medicine
DX: Z13.89 Encounter for screening for other disorder (principal)
CPT/HCPCS: 36415; 80053; 85025

== ENCOUNTER → 2022-02-18 09:27 | Outpatient (REF) | payer MEDICARE, BC, SELFPAY ==
--- NOTE | 2022-02-18 09:30 | CA_ITS ---
Transthoracic Echocardiogram Patient (Last, First, Middle): Nixon Morgan, Gender: Male Date of : 1940 Age: 81 Procedure Date: 02/18/2022 Procedure Type: Transthoracic Echocardiogram Location: OP Height: 175.26 cm Weight: 86.18 kg BSA: 2.02 m2 Heart Rate: bpm BP: 134 / 70 mmHg Shale Miner: WAYNE Referring MD: Raul Aguayo MD Catalogue Illustrator: Efrain Lucero MD Symptoms: I35.1 - Nonrheumatic aortic (valve) insufficiency Study Quality: Adequate ECG Rhythm: Sinus Conclusions: - 1. Normal LV systolic function with grade 1 diastolic dysfunction 2. Mild to moderate eccentric aortic regurgitation 3. Mildly dilated ascending aorta 4. No gross pericardial effusion Findings Left Ventricle Normal left ventricular size, thickness, and systolic function. The visually estimated ejection fraction is between 55-60%. Spectral Doppler is indicative of an impaired relaxation filling pattern. E/E prime ratio is <8, consistent with normal filling pressures. Evidence suggests grade I (mild) diastolic dysfunction. Right Ventricle Normal right ventricular cavity size and systolic function. Atria The left atrium is normal in size. There is lipomatous hypertrophy of the interatrial septum. There is no evidence of interatrial shunt. The right atrium is normal in size. Aortic Valve The aortic valve structure and function is likely normal. There is no aortic valve stenosis. There is mild to moderate aortic valve regurgitation. Mitral Valve There is mild anterior and posterior mitral leaflet thickening. There is trace mitral valve regurgitation. There is no mitral valve stenosis. Pulmonic Valve The pulmonic valve was not well visualized. Tricuspid Valve Likely normal tricuspid valve structure and function. Tricuspid regurgitation envelope is inadequate for calculation of right ventricular systolic pressure. Great Vessels There is mild dilatation of the ascending aorta measuring 3.80 cm. Venous The inferior vena cava is normal in size and collapses greater than 50% with inspiration. Pericardium/Pleural There is no evidence of pericardial effusion. Measurements 2D Linear Measurements IVSd: 0.96 0.6-0.9/0.6-1.0 cm LVIDd: 4.59 3.9-5.3/4.2-5.9 cm LVIDd Index: 2.27 2.4-3.2/2.2-3.1 cm/m2 LVIDs: 3.15 2.0-3.6 cm LVPWd: 0.66 0.7-1.1 cm LA Diam: 3.50 2.7-3.8/3.0-4.0 cm LAIDs Index: 1.73 1.5-2.3 cm/m2 LV Mass: 181.49 67-162/88-224 g LV Mass Index: 89.85 43-95/49-115 g/m2 LVOT Diam: 2.20 3.0+(-)1.3 cm 2D Systolic Function EF 4C: 52.30 >55% EF 2C: 62.70 >55% EF BiP: 58.20 >55% Mitral Valve MV Pk E: 0.45 MV PK A: 0.59 MV Decel Time: 268.00 E/A: 0.80 E'Lateral: 6.09 E'Medial: 4.24 E/E' Med: 10.70 E/E' Lat: 7.40 PHT: 78.00 MVA PHT: 2.[address] [place]: 1.69 Aortic Valve AoV Pk Jameson: 1.47 AoV Mn Jameson: 1.01 AoV VTI: 0.28 AoV Pk Grad: 9.00 Aov Mn Grad: 5.00 LISA Cont.VTI: 2.60 AI Pk Jameson: 3.[address] [place]: 2.40 LVOT LVOT Pk Jameson: 0.88 LVOT Mn Jameson: 0.64 LVOT VTI: 0.19 LVOT Pk Grad: 3.00 LVOT Mn Grad: 2.00 LVOT Diam: 2.20 LVOT Area: 3.80 Diastolic Function MV Pk E: 0.45 MV Pk A: 0.59 E/A: 0.80 E'Medial: 4.24 E/E' Med: 10.70 E' Laterial: 6.09 E/E' Lat: 7.40 Right Ventricle TAPSE (mm): 20.90 TVS' Jameson: 13.10 Tricuspid Valve RA Press: 3.00 Great Vessels Aorta Sinus of Valsalva: 3.57 2.0-3.5 cm Ao Asc: 3.80 2.1-3.4 cm Pulmonary Valve PV Pk Jameson: 1.17 Peak PV Grad: 5.00 Updated in Other Vendor System with Status of Final Efrain Lucero MD electronically signed on 02/18/2022 2:56:29 PM with status of Final
== END ==
LOC: HO.CARD 09:27
PROVIDERS: PCP Internal Medicine; Visit Provider Internal Medicine
DX: I35.1 Nonrheumatic aortic (valve) insufficiency (principal)
CPT/HCPCS: 36415; 80053; 85025; 93306

== ENCOUNTER 2022-02-24 06:51 | Outpatient (REF) | payer MEDICARE, BC, SELFPAY ==
[2022-02-24 11:54] LABS: Basophils Percent Auto 1.5 % (0-2); Eosinophils Absolute Auto 0.1 X10*3/uL (0.0-0.4); Eosinophils Percent Auto 3.8 % (0-4); Hematocrit 32.8 % (42.0-52.0); Hemoglobin 10.6 g/dl (14.0-18.0); Imm Gran Abs Auto 0.02 X10*3/uL (0.00-0.03); Imm Gran Pct Auto 1.5 % (0.0-0.4); Lymphocytes Absolute Auto 0.6 X10*3/uL (1.2-4.9); Lymphocytes Percent Auto 45.9 % (20-40); MANUAL DIFF FLAG SCAN; Mean Corpuscular HGB Conc 32.3 g/dl (31.0-36.0); Mean Corpuscular Hemoglobin 30.5 pg (27.0-33.0); Mean Corpuscular Volume 94.5 fL (80.0-98.0); Mean Platelet Volume 9.2 fL (9.4-12.4); Neutrophils Absolute Auto 0.6 x10*3/uL (2.0-8.3); Neutrophils Percent Auto 44.3 % (45-73); Platelet Count 188 X10*3/uL (160-400); Red Blood Count 3.47 X10*6/uL (4.60-5.80); Red Cell Distribution Width 14.2 % (11.0-16.0); SCAN SMEAR FLAG 1
[2022-02-24 11:55] LABS: White Blood Count 1.3 X10*3/uL (4.8-10.8)
[2022-02-24 12:06] LABS: Alanine Aminotransferase 53 U/L (0-40); Alkaline Phosphatase 135 U/L (39-117); Anion Gap 13 (12-20); Aspartate Amino Transferase 33 U/L (5-37); Bilirubin Total 0.4 mg/dL (0.0-1.0); Blood Urea Nitrogen 23 mg/dL (9-16); Calcium 8.9 mg/dL (8.4-10.2); Carbon Dioxide 25 mmol/L (22-29); Chloride 107 mmol/L (96-108); Estimated Glomerular Filt Rate > 60; Glucose Random 107 mg/dL (60-115); Potassium 4.2 mmol/L (3.3-5.1); Sodium 141 mmol/L (135-145); Total Protein 6.4 g/dL (6.5-8.0)
[2022-02-24 12:42] LABS: SLIDE REVIEW VERIFIED
== END 2022-02-24 06:52 | disposition home or self-care (01) ==
LOC: HO.LHD 06:51
PROVIDERS: Visit Provider Internal Medicine
DX: C80.1 Malignant (primary) neoplasm, unspecified (principal)
CPT/HCPCS: 36415; 80053; 85025

== ENCOUNTER 2022-03-03 07:27 | Outpatient (REF) | payer MEDICARE, BC, SELFPAY ==
[2022-03-03 13:25] LABS: Basophils Percent Auto 1.4 % (0-2); Eosinophils Percent Auto 1.4 % (0-4); Hematocrit 31.3 % (42.0-52.0); Hemoglobin 9.8 g/dl (14.0-18.0); Imm Gran Abs Auto 0.01 X10*3/uL (0.00-0.03); Imm Gran Pct Auto 0.7 % (0.0-0.4); Lymphocytes Absolute Auto 0.5 X10*3/uL (1.2-4.9); Lymphocytes Percent Auto 37.9 % (20-40); MANUAL DIFF FLAG SCAN; Mean Corpuscular HGB Conc 31.3 g/dl (31.0-36.0); Mean Corpuscular Hemoglobin 30.6 pg (27.0-33.0); Mean Corpuscular Volume 97.8 fL (80.0-98.0); Monocytes Absolute Auto 0.5 X10*3/uL (0.1-1.2); Monocytes Percent Auto 32.9 % (2-11); Neutrophils Absolute Auto 0.4 x10*3/uL (2.0-8.3); Neutrophils Percent Auto 25.7 % (45-73); Platelet Count 205 X10*3/uL (160-400); Red Cell Distribution Width 14.7 % (11.0-16.0); SCAN SMEAR FLAG 1
[2022-03-03 13:33] LABS: White Blood Count 1.4 X10*3/uL (4.8-10.8)
[2022-03-03 13:54] LABS: SLIDE REVIEW VERIFIED
[2022-03-03 14:03] LABS: Alanine Aminotransferase 33 U/L (0-40); Alkaline Phosphatase 121 U/L (39-117); Anion Gap 12 (12-20); Aspartate Amino Transferase 22 U/L (5-37); Bilirubin Total 0.4 mg/dL (0.0-1.0); Blood Urea Nitrogen 21 mg/dL (9-16); Calcium 8.3 mg/dL (8.4-10.2); Carbon Dioxide 26 mmol/L (22-29); Chloride 107 mmol/L (96-108); Estimated Glomerular Filt Rate > 60; Glucose Random 151 mg/dL (60-115); Potassium 3.8 mmol/L (3.3-5.1); Sodium 141 mmol/L (135-145); Total Protein 6.2 g/dL (6.5-8.0)
== END 2022-03-03 07:28 | disposition home or self-care (01) ==
LOC: HO.LHD 07:27
PROVIDERS: Visit Provider Internal Medicine
DX: E11.9 Type 2 diabetes mellitus without complications (principal); C80.1 Malignant (primary) neoplasm, unspecified
CPT/HCPCS: 36415; 80053; 85025; 97802

== ENCOUNTER 2022-03-09 10:00 | Outpatient (RCR) | payer MEDICARE, BC, SELFPAY ==
--- NOTE | 2021-12-30 14:04 | MHC.PT.EP ---
[facility] [place] Office [place] Office [place] Office [address] Ericka Miranda [address] [phone] F: [phone] F: [phone] F: [phone] F: [phone] Physical Therapy Plan of Care Date of Evaluation: Date of Surgery: 12/14/21 Diagnosis: R TKA on 12/14/21 Assessment: pt presents for first post-operative follow-up at the orthopedic office following R TKA on 12/14/21. pt presents to physical therapy with pain, decreased range of motion, decreased strength, impaired functional mobility, impaired postural awareness, and gait deviations. pt is a excellent/good/fair/poor candidate for skilled PT due to age, potential remediation of impairments, typical disease/condition progression and prognosis, comorbidities, and motivation. pt would benefit from tailored strengthening and stretching exercise program, functional training, gait training, postural re-training, neuromuscular re-education, modalities as needed for pain, equipment safety demonstration. Frequency and Duration: The patient will be seen 2x/wk for 8 wks Short Term Goals: Pt will be I w/ HEP and symptom self-management to promote self-management of post-operative status. Pt will improve R knee extension to 0 degrees to normalize heel strike at initial contact w/ involved LE to reduce impairments w/ gait using LRAD. Alf Goals: Pt will report a statistically significant improvement in self-reported outcome measure, LEFI, to promote return to PLOF. Pt will ascend/descend 10 stairs mod I w/ LRAD to promote access to basement for laundry. Treatment Plan: Modalities to reduce pain, spasms and effusion. Manual therapy to restore motion and function. Therapeutic exercise to improve strength and flexibility. Neuromuscular re-education for posture and balance. Therapeutic activities to return to functional activities of daily living. Electronically signed by: Mabel Carrasquillo PT, DPT Please sign and return to therapist. Thank you for your referral.
--- NOTE | 2022-04-15 16:07 | MHC.PT.DC ---
[facility] [place] Office [place] Office [place] Office [address] Ericka Miranda [address] [facility] [phone] F: [phone] F: [phone] F: [phone] F: [phone] Physical Therapy Discharge Report Diagnosis: R TKA on 12/14/21 Date of Surgery: 12/14/21 Date of Evaluation: 12/30/21 Date of Discharge: 04/15/22 Treatments to Date: 10 Cancellations to Date: 0 No Shows to Date: 0 Discharge Status: Improved Function Independent with HEP Patient Elected to Stop Physician Discontinued Tx Discharge Summary: Pt did not follow up for his last few sessions of therapy likely as he had been feeling improved of his knee though expressed worse activity tolerance d/t chemo treatment. Electronically signed by: Burton Stafford PT. Please sign and return to therapist. Thank you for your referral.
== END 2022-04-15 16:02 | disposition home or self-care (01) ==
LOC: HO.PTCHIC 10:00
PROVIDERS: Visit Provider Physician Assistant
DX: Z96.651 Presence of right artificial knee joint (principal)
CPT/HCPCS: 97110; 97140; 97150; 97162; 97530

== ENCOUNTER 2022-03-10 06:22 | Outpatient (REF) | payer MEDICARE, BC, SELFPAY ==
--- NOTE | ~2022-03-10 | XR_ITS ---
EXAMINATION: XR KNEES, STANDING AP XR KNEE, RIGHT CLINICAL INFORMATION: Knee pain COMPARISON: Standing AP knees and right knee radiographs 01/27/2022. TECHNIQUE: Standing AP view of both knees is performed along with lateral and axial patella views of the right knee. FINDINGS: Right: Prior total knee arthroplasty. Hardware intact. No destructive process or osteolysis or periostitis. Small suprapatellar effusion decreased from prior study. No lateralization or tilting patella. Left: Normal bony mineralization. No destructive process. Borderline narrowing medial knee joint compartment. Fine meniscal chondrocalcinosis again suggested medial lateral compartments. No erosive change. XR/XR knee RT 2V IMPRESSION: Right: -Status post total knee arthroplasty. Hardware intact. No osteolysis. -Small effusion decreased. Left: -Borderline narrowing medial compartment. -Fine meniscal chondrocalcinosis.
--- NOTE | ~2022-03-10 | XR_ITS ---
EXAMINATION: XR KNEES, STANDING AP XR KNEE, RIGHT CLINICAL INFORMATION: Knee pain COMPARISON: Standing AP knees and right knee radiographs 01/27/2022. TECHNIQUE: Standing AP view of both knees is performed along with lateral and axial patella views of the right knee. FINDINGS: Right: Prior total knee arthroplasty. Hardware intact. No destructive process or osteolysis or periostitis. Small suprapatellar effusion decreased from prior study. No lateralization or tilting patella. Left: Normal bony mineralization. No destructive process. Borderline narrowing medial knee joint compartment. Fine meniscal chondrocalcinosis again suggested medial lateral compartments. No erosive change. XR/XR knee standing BI IMPRESSION: Right: -Status post total knee arthroplasty. Hardware intact. No osteolysis. -Small effusion decreased. Left: -Borderline narrowing medial compartment. -Fine meniscal chondrocalcinosis.
== END 2022-03-10 06:23 | disposition home or self-care (01) ==
LOC: HO.HOSX 06:22
PROVIDERS: Visit Provider Orthopaedic Surgery
DX: E78.00 Pure hypercholesterolemia, unspecified (principal); M25.569 Pain in unspecified knee; E03.9 Hypothyroidism, unspecified; E11.9 Type 2 diabetes mellitus without complications; I10 Essential (primary) hypertension; Z12.5 Encounter for screening for malignant neoplasm of prostate
CPT/HCPCS: 36415; 73560; 73565; 80053; 80061; 81003; 82043; 83036; 84153; 84439; 84443; 85025

== ENCOUNTER 2022-03-10 07:01 | Outpatient (REF) | payer MEDICARE, BC, SELFPAY ==
[2022-03-10 13:50] LABS: MANUAL DIFF FLAG NO
[2022-03-10 13:59] LABS: Basophils Percent Auto 0.8 % (0-2); Eosinophils Percent Auto 0.3 % (0-4); Hematocrit 31.4 % (42.0-52.0); Hemoglobin 9.9 g/dl (14.0-18.0); Imm Gran Abs Auto 0.15 X10*3/uL (0.00-0.03); Imm Gran Pct Auto 4.2 % (0.0-0.4); Lymphocytes Absolute Auto 0.9 X10*3/uL (1.2-4.9); Lymphocytes Percent Auto 26.3 % (20-40); Mean Corpuscular HGB Conc 31.5 g/dl (31.0-36.0); Mean Corpuscular Hemoglobin 30.5 pg (27.0-33.0); Mean Corpuscular Volume 96.6 fL (80.0-98.0); Mean Platelet Volume 8.6 fL (9.4-12.4); Monocytes Absolute Auto 0.3 X10*3/uL (0.1-1.2); Monocytes Percent Auto 9.6 % (2-11); Neutrophils Absolute Auto 2.1 x10*3/uL (2.0-8.3); Neutrophils Percent Auto 58.8 % (45-73); Platelet Count 213 X10*3/uL (160-400); Red Blood Count 3.25 X10*6/uL (4.60-5.80); Red Cell Distribution Width 14.6 % (11.0-16.0); White Blood Count 3.5 X10*3/uL (4.8-10.8)
[2022-03-10 14:00] LABS: Appearance Urine HAZY; Color Urine YELLOW; Glucose Urine UA NEG (NEG); Leukocyte Esterase Urine NEG (NEG); Nitrite Urine NEG (NEG); PH 5.5 (5.0-8.0); Specific Gravity - Urine >= 1.030 (1.005-1.025); Urine Blood NEG (NEG); Urine Ketones 5 MG/DL (NEG); Urine Protein NEG (NEG-TRACE)
[2022-03-10 14:22] LABS: Estimated Average Glucose 137 mg/dL; Hemoglobin A1c % 6.4 %
[2022-03-10 15:00] LABS: Creatinine Urine 211.37 mg/dL; Microalbum/Creatinine Ratio Ur 4.2 ug/mg cr
[2022-03-10 15:00] LABS: Alanine Aminotransferase 34 U/L (0-40); Albumin Level 4.2 g/dL (3.5-5.0); Alkaline Phosphatase 115 U/L (39-117); Anion Gap 13 (12-20); Aspartate Amino Transferase 26 U/L (5-37); Bilirubin Total 0.5 mg/dL (0.0-1.0); Blood Urea Nitrogen 26 mg/dL (9-16); Calcium 8.6 mg/dL (8.4-10.2); Carbon Dioxide 25 mmol/L (22-29); Chloride 107 mmol/L (96-108); Cholesterol 158 mg/dL; Estimated Glomerular Filt Rate > 60; Glucose Fasting 113 mg/dL (60-99); HDL Cholesterol 41 mg/dL; LDL Cholesterol Calculated 84 mg/dl; Potassium 4.2 mmol/L (3.3-5.1); Sodium 141 mmol/L (135-145); Total Protein 6.4 g/dL (6.5-8.0); Triglycerides 165 mg/dL
[2022-03-10 15:26] LABS: Free T4 (Free Thyroxine) 1.17 ng/dL (0.71-1.85); Thyroid Stimulating Hormone 0.41 uIU/mL (0.32-4.0)
[2022-03-10 15:56] LABS: Prostate Specific Antigen 154.56 ng/mL (<0.05-4.0)
== END 2022-03-10 07:02 | disposition home or self-care (01) ==
LOC: HO.LHD 07:01
PROVIDERS: Internal Medicine; Visit Provider Internal Medicine
DX: Z13.89 Encounter for screening for other disorder (principal)
CPT/HCPCS: 36415; 80053; 80061; 81003; 82043; 83036; 84153; 84439; 84443; 85025

== ENCOUNTER 2022-03-17 15:07 | Outpatient (REF) | payer MEDICARE, BC, SELFPAY ==
[2022-03-17 10:29] LABS: MANUAL DIFF FLAG NO
[2022-03-17 10:38] LABS: Basophils Percent Auto 0.5 % (0-2); Eosinophils Percent Auto 0.8 % (0-4); Hematocrit 32.4 % (42.0-52.0); Hemoglobin 10.2 g/dl (14.0-18.0); Imm Gran Abs Auto 0.05 X10*3/uL (0.00-0.03); Imm Gran Pct Auto 1.4 % (0.0-0.4); Mean Corpuscular HGB Conc 31.5 g/dl (31.0-36.0); Mean Corpuscular Hemoglobin 30.4 pg (27.0-33.0); Mean Corpuscular Volume 96.7 fL (80.0-98.0); Mean Platelet Volume 8.8 fL (9.4-12.4); Monocytes Absolute Auto 0.3 X10*3/uL (0.1-1.2); Monocytes Percent Auto 8.7 % (2-11); Neutrophils Absolute Auto 2.3 x10*3/uL (2.0-8.3); Neutrophils Percent Auto 62.6 % (45-73); Platelet Count 204 X10*3/uL (160-400); Red Blood Count 3.35 X10*6/uL (4.60-5.80); Red Cell Distribution Width 15.4 % (11.0-16.0); White Blood Count 3.7 X10*3/uL (4.8-10.8)
[2022-03-17 11:08] LABS: Alanine Aminotransferase 27 U/L (0-40); Albumin Level 4.2 g/dL (3.5-5.0); Alkaline Phosphatase 116 U/L (39-117); Anion Gap 13 (12-20); Aspartate Amino Transferase 22 U/L (5-37); Bilirubin Total 0.5 mg/dL (0.0-1.0); Blood Urea Nitrogen 27 mg/dL (9-16); Carbon Dioxide 25 mmol/L (22-29); Chloride 106 mmol/L (96-108); Estimated Glomerular Filt Rate > 60; Glucose Random 124 mg/dL (60-115); Potassium 4.1 mmol/L (3.3-5.1); Sodium 140 mmol/L (135-145); Total Protein 6.5 g/dL (6.5-8.0)
== END 2022-03-17 15:08 | disposition home or self-care (01) ==
LOC: HO.LHD 15:07
PROVIDERS: Visit Provider Internal Medicine
DX: C80.1 Malignant (primary) neoplasm, unspecified (principal)
CPT/HCPCS: 36415; 80053; 85025

== ENCOUNTER 2022-03-24 14:05 | Outpatient (REF) | payer MEDICARE, BC, SELFPAY ==
[2022-03-24 12:40] LABS: Basophils Percent Auto 1.4 % (0-2); Eosinophils Absolute Auto 0.1 X10*3/uL (0.0-0.4); Eosinophils Percent Auto 3.4 % (0-4); Hematocrit 30.4 % (42.0-52.0); Hemoglobin 9.8 g/dl (14.0-18.0); Imm Gran Abs Auto 0.01 X10*3/uL (0.00-0.03); Imm Gran Pct Auto 0.7 % (0.0-0.4); Lymphocytes Absolute Auto 0.7 X10*3/uL (1.2-4.9); Lymphocytes Percent Auto 50.3 % (20-40); MANUAL DIFF FLAG SCAN; Mean Corpuscular HGB Conc 32.2 g/dl (31.0-36.0); Mean Corpuscular Hemoglobin 30.8 pg (27.0-33.0); Mean Corpuscular Volume 95.6 fL (80.0-98.0); Mean Platelet Volume 9.2 fL (9.4-12.4); Monocytes Absolute Auto 0.1 X10*3/uL (0.1-1.2); Monocytes Percent Auto 4.8 % (2-11); Neutrophils Absolute Auto 0.6 x10*3/uL (2.0-8.3); Neutrophils Percent Auto 39.4 % (45-73); Platelet Count 237 X10*3/uL (160-400); Red Blood Count 3.18 X10*6/uL (4.60-5.80); Red Cell Distribution Width 15.2 % (11.0-16.0); SCAN SMEAR FLAG 1
[2022-03-24 12:47] LABS: White Blood Count 1.5 X10*3/uL (4.8-10.8)
[2022-03-24 13:16] LABS: SLIDE REVIEW VERIFIED
[2022-03-24 13:40] LABS: Alanine Aminotransferase 51 U/L (0-40); Albumin Level 4.1 g/dL (3.5-5.0); Alkaline Phosphatase 117 U/L (39-117); Anion Gap 12 (12-20); Aspartate Amino Transferase 26 U/L (5-37); Bilirubin Total 0.4 mg/dL (0.0-1.0); Blood Urea Nitrogen 21 mg/dL (9-16); Calcium 8.9 mg/dL (8.4-10.2); Carbon Dioxide 24 mmol/L (22-29); Chloride 108 mmol/L (96-108); Estimated Glomerular Filt Rate > 60; Glucose Random 114 mg/dL (60-115); Potassium 4.2 mmol/L (3.3-5.1); Sodium 140 mmol/L (135-145); Total Protein 6.3 g/dL (6.5-8.0)
== END 2022-03-24 14:06 | disposition home or self-care (01) ==
LOC: HO.LHD 14:05
PROVIDERS: Visit Provider Internal Medicine
DX: C80.1 Malignant (primary) neoplasm, unspecified (principal)
CPT/HCPCS: 36415; 80053; 85025

== ENCOUNTER 2022-03-31 10:18 | Outpatient (REF) | payer MEDICARE, BC, SELFPAY ==
[2022-03-31 11:26] LABS: Basophils Percent Auto 0.6 % (0-2); Eosinophils Percent Auto 0.6 % (0-4); Hematocrit 30.4 % (42.0-52.0); Hemoglobin 9.5 g/dl (14.0-18.0); Imm Gran Abs Auto 0.03 X10*3/uL (0.00-0.03); Imm Gran Pct Auto 1.9 % (0.0-0.4); Lymphocytes Absolute Auto 0.7 X10*3/uL (1.2-4.9); Lymphocytes Percent Auto 43.9 % (20-40); MANUAL DIFF FLAG SCAN; Mean Corpuscular HGB Conc 31.3 g/dl (31.0-36.0); Mean Corpuscular Hemoglobin 30.4 pg (27.0-33.0); Mean Corpuscular Volume 97.1 fL (80.0-98.0); Mean Platelet Volume 8.7 fL (9.4-12.4); Monocytes Absolute Auto 0.5 X10*3/uL (0.1-1.2); Monocytes Percent Auto 30.3 % (2-11); Neutrophils Absolute Auto 0.4 x10*3/uL (2.0-8.3); Neutrophils Percent Auto 22.7 % (45-73); Platelet Count 260 X10*3/uL (160-400); Red Blood Count 3.13 X10*6/uL (4.60-5.80); Red Cell Distribution Width 15.9 % (11.0-16.0); SCAN SMEAR FLAG 1
[2022-03-31 11:29] LABS: White Blood Count 1.6 X10*3/uL (4.8-10.8)
[2022-03-31 11:49] LABS: SLIDE REVIEW VERIFIED
[2022-03-31 11:55] LABS: Alanine Aminotransferase 31 U/L (0-40); Albumin Level 4.2 g/dL (3.5-5.0); Alkaline Phosphatase 109 U/L (39-117); Anion Gap 11 (12-20); Aspartate Amino Transferase 20 U/L (5-37); Bilirubin Total 0.3 mg/dL (0.0-1.0); Blood Urea Nitrogen 16 mg/dL (9-16); Calcium 9.2 mg/dL (8.4-10.2); Carbon Dioxide 26 mmol/L (22-29); Chloride 107 mmol/L (96-108); Estimated Glomerular Filt Rate > 60; Glucose Random 111 mg/dL (60-115); Potassium 4.3 mmol/L (3.3-5.1); Sodium 140 mmol/L (135-145); Total Protein 6.6 g/dL (6.5-8.0)
== END 2022-03-31 10:19 | disposition home or self-care (01) ==
LOC: HO.LAB 10:18
PROVIDERS: Visit Provider Internal Medicine
DX: C80.1 Malignant (primary) neoplasm, unspecified (principal); K21.9 Gastro-esophageal reflux disease without esophagitis; K62.7 Radiation proctitis; Z86.010 Personal history of colon polyps
CPT/HCPCS: 36415; 80053; 85025; 99212

== ENCOUNTER 2022-04-08 14:17 | Outpatient (REF) | payer MEDICARE, BC, SELFPAY ==
[2022-04-07 10:34] LABS: MANUAL DIFF FLAG NO
[2022-04-07 10:38] LABS: Basophils Percent Auto 0.5 % (0-2); Hematocrit 31.6 % (42.0-52.0); Hemoglobin 9.9 g/dl (14.0-18.0); Imm Gran Abs Auto 0.06 X10*3/uL (0.00-0.03); Imm Gran Pct Auto 1.6 % (0.0-0.4); Lymphocytes Absolute Auto 1.1 X10*3/uL (1.2-4.9); Mean Corpuscular HGB Conc 31.3 g/dl (31.0-36.0); Mean Corpuscular Hemoglobin 30.7 pg (27.0-33.0); Mean Corpuscular Volume 97.8 fL (80.0-98.0); Mean Platelet Volume 8.8 fL (9.4-12.4); Monocytes Absolute Auto 0.4 X10*3/uL (0.1-1.2); Monocytes Percent Auto 11.8 % (2-11); Neutrophils Absolute Auto 2.1 x10*3/uL (2.0-8.3); Neutrophils Percent Auto 57.1 % (45-73); Platelet Count 234 X10*3/uL (160-400); Red Blood Count 3.23 X10*6/uL (4.60-5.80); Red Cell Distribution Width 16.2 % (11.0-16.0); White Blood Count 3.7 X10*3/uL (4.8-10.8)
[2022-04-07 11:13] LABS: Alanine Aminotransferase 38 U/L (0-40); Albumin Level 4.2 g/dL (3.5-5.0); Alkaline Phosphatase 118 U/L (39-117); Anion Gap 11 (12-20); Aspartate Amino Transferase 27 U/L (5-37); Bilirubin Total 0.4 mg/dL (0.0-1.0); Blood Urea Nitrogen 22 mg/dL (9-16); Calcium 8.4 mg/dL (8.4-10.2); Carbon Dioxide 28 mmol/L (22-29); Chloride 102 mmol/L (96-108); Estimated Glomerular Filt Rate > 60; Glucose Random 93 mg/dL (60-115); Potassium 3.9 mmol/L (3.3-5.1); Sodium 137 mmol/L (135-145); Total Protein 6.6 g/dL (6.5-8.0)
== END 2022-04-08 14:18 | disposition home or self-care (01) ==
LOC: HO.LHD 14:17
PROVIDERS: Visit Provider Internal Medicine
DX: C80.1 Malignant (primary) neoplasm, unspecified (principal)
CPT/HCPCS: 36415; 80053; 85025

== ENCOUNTER 2022-04-15 05:48 | Outpatient (REF) | payer MEDICARE, BC, SELFPAY ==
[2022-04-14 10:46] LABS: MANUAL DIFF FLAG NO
[2022-04-14 10:49] LABS: Basophils Percent Auto 0.6 % (0-2); Eosinophils Percent Auto 0.6 % (0-4); Hemoglobin 9.2 g/dl (14.0-18.0); Imm Gran Abs Auto 0.03 X10*3/uL (0.00-0.03); Imm Gran Pct Auto 0.9 % (0.0-0.4); Lymphocytes Absolute Auto 0.9 X10*3/uL (1.2-4.9); Lymphocytes Percent Auto 29.2 % (20-40); Mean Corpuscular HGB Conc 31.7 g/dl (31.0-36.0); Mean Corpuscular Hemoglobin 31.6 pg (27.0-33.0); Mean Corpuscular Volume 99.7 fL (80.0-98.0); Monocytes Absolute Auto 0.3 X10*3/uL (0.1-1.2); Monocytes Percent Auto 10.7 % (2-11); Neutrophils Absolute Auto 1.8 x10*3/uL (2.0-8.3); Platelet Count 171 X10*3/uL (160-400); Red Blood Count 2.91 X10*6/uL (4.60-5.80); Red Cell Distribution Width 16.4 % (11.0-16.0); White Blood Count 3.2 X10*3/uL (4.8-10.8)
[2022-04-14 12:04] LABS: Alanine Aminotransferase 23 U/L (0-40); Albumin Level 3.9 g/dL (3.5-5.0); Alkaline Phosphatase 117 U/L (39-117); Anion Gap 13 (12-20); Aspartate Amino Transferase 19 U/L (5-37); Bilirubin Total 0.3 mg/dL (0.0-1.0); Blood Urea Nitrogen 22 mg/dL (9-16); Calcium 8.7 mg/dL (8.4-10.2); Carbon Dioxide 25 mmol/L (22-29); Chloride 107 mmol/L (96-108); Estimated Glomerular Filt Rate > 60; Glucose Random 103 mg/dL (60-115); Potassium 4.1 mmol/L (3.3-5.1); Sodium 141 mmol/L (135-145); Total Protein 6.1 g/dL (6.5-8.0)
== END 2022-04-15 05:49 | disposition home or self-care (01) ==
LOC: HO.LHD 05:48
PROVIDERS: Visit Provider Internal Medicine
DX: C80.1 Malignant (primary) neoplasm, unspecified (principal)
CPT/HCPCS: 36415; 80053; 85025

== ENCOUNTER 2022-04-21 10:36 | Outpatient (REF) | payer MEDICARE, BC, SELFPAY ==
[2022-04-21 10:35] LABS: Basophils Percent Auto 1.7 % (0-2); Eosinophils Percent Auto 3.3 % (0-4); Hematocrit 28.2 % (42.0-52.0); Imm Gran Abs Auto 0.02 X10*3/uL (0.00-0.03); Imm Gran Pct Auto 1.7 % (0.0-0.4); Lymphocytes Absolute Auto 0.6 X10*3/uL (1.2-4.9); Lymphocytes Percent Auto 52.9 % (20-40); MANUAL DIFF FLAG SCAN; Mean Corpuscular HGB Conc 31.9 g/dl (31.0-36.0); Mean Corpuscular Hemoglobin 30.9 pg (27.0-33.0); Mean Corpuscular Volume 96.9 fL (80.0-98.0); Monocytes Absolute Auto 0.1 X10*3/uL (0.1-1.2); Neutrophils Absolute Auto 0.4 x10*3/uL (2.0-8.3); Neutrophils Percent Auto 35.4 % (45-73); Platelet Count 200 X10*3/uL (160-400); Red Blood Count 2.91 X10*6/uL (4.60-5.80); SCAN SMEAR FLAG 1
[2022-04-21 10:36] LABS: White Blood Count 1.2 X10*3/uL (4.8-10.8)
[2022-04-21 11:24] LABS: Alanine Aminotransferase 36 U/L (0-40); Albumin Level 3.9 g/dL (3.5-5.0); Alkaline Phosphatase 108 U/L (39-117); Anion Gap 11 (12-20); Aspartate Amino Transferase 24 U/L (5-37); Bilirubin Total 0.2 mg/dL (0.0-1.0); Blood Urea Nitrogen 26 mg/dL (9-16); Calcium 8.3 mg/dL (8.4-10.2); Carbon Dioxide 27 mmol/L (22-29); Chloride 106 mmol/L (96-108); Estimated Glomerular Filt Rate > 60; Glucose Random 91 mg/dL (60-115); Potassium 4.2 mmol/L (3.3-5.1); Sodium 140 mmol/L (135-145)
[2022-04-21 11:28] LABS: SLIDE REVIEW VERIFIED
== END 2022-04-21 10:37 ==
LOC: HO.LHD 10:36
PROVIDERS: Visit Provider Internal Medicine
DX: C80.1 Malignant (primary) neoplasm, unspecified (principal)
CPT/HCPCS: 36415; 80053; 85025

== ENCOUNTER 2022-04-28 06:08 | Outpatient (REF) | payer MEDICARE, BC, SELFPAY ==
[2022-04-28 11:25] LABS: Basophils Percent Auto 1.6 % (0-2); Eosinophils Percent Auto 0.8 % (0-4); Hematocrit 29.8 % (42.0-52.0); Hemoglobin 9.4 g/dl (14.0-18.0); Imm Gran Abs Auto 0.01 X10*3/uL (0.00-0.03); Imm Gran Pct Auto 0.8 % (0.0-0.4); Lymphocytes Absolute Auto 0.7 X10*3/uL (1.2-4.9); Lymphocytes Percent Auto 52.4 % (20-40); MANUAL DIFF FLAG SCAN; Mean Corpuscular HGB Conc 31.5 g/dl (31.0-36.0); Mean Corpuscular Volume 98.3 fL (80.0-98.0); Mean Platelet Volume 8.9 fL (9.4-12.4); Monocytes Absolute Auto 0.3 X10*3/uL (0.1-1.2); Neutrophils Absolute Auto 0.3 x10*3/uL (2.0-8.3); Neutrophils Percent Auto 21.4 % (45-73); Platelet Count 247 X10*3/uL (160-400); Red Blood Count 3.03 X10*6/uL (4.60-5.80); Red Cell Distribution Width 16.5 % (11.0-16.0); SCAN SMEAR FLAG 1
[2022-04-28 11:28] LABS: White Blood Count 1.3 X10*3/uL (4.8-10.8)
[2022-04-28 12:06] LABS: Alanine Aminotransferase 30 U/L (0-40); Alkaline Phosphatase 109 U/L (39-117); Anion Gap 14 (12-20); Aspartate Amino Transferase 19 U/L (5-37); Bilirubin Total 0.4 mg/dL (0.0-1.0); Blood Urea Nitrogen 20 mg/dL (9-16); Calcium 8.7 mg/dL (8.4-10.2); Carbon Dioxide 24 mmol/L (22-29); Chloride 106 mmol/L (96-108); Estimated Glomerular Filt Rate > 60; Glucose Random 175 mg/dL (60-115); Potassium 4.1 mmol/L (3.3-5.1); Sodium 140 mmol/L (135-145); Total Protein 6.3 g/dL (6.5-8.0)
[2022-04-28 12:11] LABS: SLIDE REVIEW VERIFIED
== END 2022-04-28 06:09 | disposition home or self-care (01) ==
LOC: HO.LHD 06:08
PROVIDERS: Visit Provider Internal Medicine
DX: C80.1 Malignant (primary) neoplasm, unspecified (principal)
CPT/HCPCS: 36415; 80053; 85025

== ENCOUNTER → 2022-05-02 10:24 | Outpatient (BNVA) | payer MEDICARE, BC, SELFPAY | PROVIDERS: PCP Internal Medicine; Visit Provider Dietitian, Registered | DX: E11.9 Type 2 diabetes mellitus without complications (principal) | CPT/HCPCS: 97803 ==

== ENCOUNTER 2022-05-05 13:14 | Outpatient (REF) | payer MEDICARE, BC, SELFPAY ==
[2022-05-05 11:27] LABS: MANUAL DIFF FLAG NO
[2022-05-05 11:48] LABS: Basophils Percent Auto 0.6 % (0-2); Eosinophils Percent Auto 0.3 % (0-4); Hematocrit 29.7 % (42.0-52.0); Hemoglobin 9.4 g/dl (14.0-18.0); Imm Gran Abs Auto 0.17 X10*3/uL (0.00-0.03); Imm Gran Pct Auto 4.7 % (0.0-0.4); Lymphocytes Absolute Auto 0.9 X10*3/uL (1.2-4.9); Lymphocytes Percent Auto 24.9 % (20-40); Mean Corpuscular HGB Conc 31.6 g/dl (31.0-36.0); Mean Corpuscular Hemoglobin 30.8 pg (27.0-33.0); Mean Corpuscular Volume 97.4 fL (80.0-98.0); Mean Platelet Volume 8.9 fL (9.4-12.4); Monocytes Absolute Auto 0.4 X10*3/uL (0.1-1.2); Monocytes Percent Auto 10.9 % (2-11); Neutrophils Absolute Auto 2.1 x10*3/uL (2.0-8.3); Neutrophils Percent Auto 58.6 % (45-73); Platelet Count 224 X10*3/uL (160-400); Red Blood Count 3.05 X10*6/uL (4.60-5.80); Red Cell Distribution Width 16.7 % (11.0-16.0); White Blood Count 3.6 X10*3/uL (4.8-10.8)
[2022-05-05 12:41] LABS: Alanine Aminotransferase 30 U/L (0-40); Alkaline Phosphatase 106 U/L (39-117); Anion Gap 15 (12-20); Aspartate Amino Transferase 22 U/L (5-37); Bilirubin Total 0.4 mg/dL (0.0-1.0); Blood Urea Nitrogen 16 mg/dL (9-16); Calcium 8.5 mg/dL (8.4-10.2); Carbon Dioxide 25 mmol/L (22-29); Chloride 105 mmol/L (96-108); Estimated Glomerular Filt Rate > 60; Glucose Random 152 mg/dL (60-115); Sodium 141 mmol/L (135-145); Total Protein 6.2 g/dL (6.5-8.0)
[2022-05-05 14:48] LABS: Prostate Specific Antigen 91.22 ng/mL (<0.05-4.0)
== END 2022-05-05 13:15 | disposition home or self-care (01) ==
LOC: HO.LHD 13:14
PROVIDERS: Visit Provider Internal Medicine
DX: Z12.5 Encounter for screening for malignant neoplasm of prostate (principal); C80.1 Malignant (primary) neoplasm, unspecified
CPT/HCPCS: 36415; 80053; 84153; 85025

== ENCOUNTER 2022-05-12 14:04 | Outpatient (REF) | payer MEDICARE, BC, SELFPAY ==
[2022-05-12 12:51] LABS: MANUAL DIFF FLAG NO
[2022-05-12 12:56] LABS: Basophils Percent Auto 0.5 % (0-2); Eosinophils Percent Auto 0.3 % (0-4); Hematocrit 28.4 % (42.0-52.0); Hemoglobin 8.9 g/dl (14.0-18.0); Imm Gran Abs Auto 0.03 X10*3/uL (0.00-0.03); Imm Gran Pct Auto 0.8 % (0.0-0.4); Lymphocytes Absolute Auto 0.7 X10*3/uL (1.2-4.9); Lymphocytes Percent Auto 17.3 % (20-40); Mean Corpuscular HGB Conc 31.3 g/dl (31.0-36.0); Mean Corpuscular Hemoglobin 30.8 pg (27.0-33.0); Mean Corpuscular Volume 98.3 fL (80.0-98.0); Mean Platelet Volume 8.9 fL (9.4-12.4); Monocytes Absolute Auto 0.4 X10*3/uL (0.1-1.2); Monocytes Percent Auto 10.3 % (2-11); Neutrophils Absolute Auto 2.8 x10*3/uL (2.0-8.3); Neutrophils Percent Auto 70.8 % (45-73); Platelet Count 160 X10*3/uL (160-400); Red Blood Count 2.89 X10*6/uL (4.60-5.80); Red Cell Distribution Width 16.6 % (11.0-16.0)
[2022-05-12 13:39] LABS: Alanine Aminotransferase 25 U/L (0-40); Alkaline Phosphatase 120 U/L (39-117); Anion Gap 15 (12-20); Aspartate Amino Transferase 18 U/L (5-37); Bilirubin Total < 0.2 mg/dL (0.0-1.0); Blood Urea Nitrogen 20 mg/dL (9-16); Calcium 8.4 mg/dL (8.4-10.2); Carbon Dioxide 26 mmol/L (22-29); Chloride 107 mmol/L (96-108); Estimated Glomerular Filt Rate > 60; Glucose Random 101 mg/dL (60-115); Potassium 3.9 mmol/L (3.3-5.1); Sodium 144 mmol/L (135-145); Total Protein 6.4 g/dL (6.5-8.0)
== END 2022-05-12 14:05 | disposition home or self-care (01) ==
LOC: HO.LHD 14:04
PROVIDERS: Visit Provider Internal Medicine
DX: C80.1 Malignant (primary) neoplasm, unspecified (principal)
CPT/HCPCS: 36415; 80053; 85025

== ENCOUNTER 2022-05-20 07:03 | Outpatient (REF) | payer MEDICARE, BC, SELFPAY ==
[2022-05-19 10:46] LABS: Basophils Percent Auto 1.2 % (0-2); Eosinophils Absolute Auto 0.1 X10*3/uL (0.0-0.4); Eosinophils Percent Auto 3.7 % (0-4); Hematocrit 28.7 % (42.0-52.0); Hemoglobin 9.2 g/dl (14.0-18.0); Imm Gran Abs Auto 0.01 X10*3/uL (0.00-0.03); Imm Gran Pct Auto 0.6 % (0.0-0.4); Lymphocytes Absolute Auto 0.8 X10*3/uL (1.2-4.9); Lymphocytes Percent Auto 50.3 % (20-40); MANUAL DIFF FLAG SCAN; Mean Corpuscular HGB Conc 32.1 g/dl (31.0-36.0); Mean Corpuscular Hemoglobin 31.1 pg (27.0-33.0); Mean Platelet Volume 9.7 fL (9.4-12.4); Monocytes Absolute Auto 0.1 X10*3/uL (0.1-1.2); Monocytes Percent Auto 3.7 % (2-11); Neutrophils Absolute Auto 0.7 x10*3/uL (2.0-8.3); Neutrophils Percent Auto 40.5 % (45-73); Platelet Count 200 X10*3/uL (160-400); Red Blood Count 2.96 X10*6/uL (4.60-5.80); Red Cell Distribution Width 16.3 % (11.0-16.0); SCAN SMEAR FLAG 1
[2022-05-19 10:52] LABS: White Blood Count 1.6 X10*3/uL (4.8-10.8)
[2022-05-19 11:17] LABS: Alanine Aminotransferase 37 U/L (0-40); Albumin Level 4.1 g/dL (3.5-5.0); Alkaline Phosphatase 111 U/L (39-117); Anion Gap 14 (12-20); Aspartate Amino Transferase 26 U/L (5-37); Bilirubin Total 0.4 mg/dL (0.0-1.0); Blood Urea Nitrogen 22 mg/dL (9-16); Calcium 8.5 mg/dL (8.4-10.2); Carbon Dioxide 25 mmol/L (22-29); Chloride 105 mmol/L (96-108); Estimated Glomerular Filt Rate > 60; Glucose Random 118 mg/dL (60-115); Potassium 4.2 mmol/L (3.3-5.1); Sodium 140 mmol/L (135-145); Total Protein 6.4 g/dL (6.5-8.0)
[2022-05-19 12:00] LABS: SLIDE REVIEW VERIFIED
== END 2022-05-20 07:04 | disposition home or self-care (01) ==
LOC: HO.LHD 07:03
PROVIDERS: Visit Provider Internal Medicine
DX: C80.1 Malignant (primary) neoplasm, unspecified (principal)
CPT/HCPCS: 36415; 80053; 85025

== ENCOUNTER → 2022-05-25 10:43 | Outpatient (BNVA) | payer MEDICARE, BC, SELFPAY | PROVIDERS: PCP Internal Medicine; Visit Provider Internal Medicine Endocrinology, Diabetes & Metabolism | DX: E03.9 Hypothyroidism, unspecified (principal) | CPT/HCPCS: 99212 ==

== ENCOUNTER 2022-05-26 12:29 | Outpatient (REF) | payer MEDICARE, BC, SELFPAY ==
[2022-05-26 11:45] LABS: Basophils Percent Auto 0.8 % (0-2); Eosinophils Percent Auto 2.3 % (0-4); Hematocrit 28.8 % (42.0-52.0); Hemoglobin 9.2 g/dl (14.0-18.0); Imm Gran Abs Auto 0.01 X10*3/uL (0.00-0.03); Imm Gran Pct Auto 0.8 % (0.0-0.4); Lymphocytes Absolute Auto 0.7 X10*3/uL (1.2-4.9); MANUAL DIFF FLAG SCAN; Mean Corpuscular HGB Conc 31.9 g/dl (31.0-36.0); Mean Corpuscular Hemoglobin 31.6 pg (27.0-33.0); Mean Platelet Volume 9.1 fL (9.4-12.4); Monocytes Absolute Auto 0.3 X10*3/uL (0.1-1.2); Monocytes Percent Auto 24.2 % (2-11); Neutrophils Absolute Auto 0.3 x10*3/uL (2.0-8.3); Neutrophils Percent Auto 21.9 % (45-73); Platelet Count 241 X10*3/uL (160-400); Red Blood Count 2.91 X10*6/uL (4.60-5.80); Red Cell Distribution Width 16.9 % (11.0-16.0); SCAN SMEAR FLAG 1
[2022-05-26 11:47] LABS: White Blood Count 1.3 X10*3/uL (4.8-10.8)
[2022-05-26 12:11] LABS: SLIDE REVIEW VERIFIED
[2022-05-26 12:17] LABS: Alanine Aminotransferase 28 U/L (0-40); Alkaline Phosphatase 99 U/L (39-117); Anion Gap 15 (12-20); Aspartate Amino Transferase 21 U/L (5-37); Bilirubin Total 0.4 mg/dL (0.0-1.0); Blood Urea Nitrogen 21 mg/dL (9-16); Calcium 8.7 mg/dL (8.4-10.2); Carbon Dioxide 26 mmol/L (22-29); Chloride 105 mmol/L (96-108); Estimated Glomerular Filt Rate > 60; Glucose Random 124 mg/dL (60-115); Potassium 4.2 mmol/L (3.3-5.1); Sodium 142 mmol/L (135-145); Total Protein 6.3 g/dL (6.5-8.0)
== END 2022-05-26 12:30 | disposition home or self-care (01) ==
LOC: HO.LHD 12:29
PROVIDERS: Visit Provider Internal Medicine
DX: C80.1 Malignant (primary) neoplasm, unspecified (principal)
CPT/HCPCS: 36415; 80053; 85025

== ENCOUNTER 2022-06-02 14:07 | Outpatient (REF) | payer MEDICARE, BC, SELFPAY ==
[2022-06-02 12:28] LABS: MANUAL DIFF FLAG NO
[2022-06-02 12:31] LABS: Basophils Percent Auto 0.5 % (0-2); Eosinophils Percent Auto 0.3 % (0-4); Hematocrit 29.9 % (42.0-52.0); Hemoglobin 9.4 g/dl (14.0-18.0); Imm Gran Abs Auto 0.07 X10*3/uL (0.00-0.03); Imm Gran Pct Auto 1.9 % (0.0-0.4); Lymphocytes Absolute Auto 0.7 X10*3/uL (1.2-4.9); Mean Corpuscular HGB Conc 31.4 g/dl (31.0-36.0); Mean Corpuscular Hemoglobin 31.4 pg (27.0-33.0); Mean Platelet Volume 8.9 fL (9.4-12.4); Monocytes Absolute Auto 0.4 X10*3/uL (0.1-1.2); Neutrophils Absolute Auto 2.5 x10*3/uL (2.0-8.3); Neutrophils Percent Auto 67.3 % (45-73); Platelet Count 224 X10*3/uL (160-400); Red Blood Count 2.99 X10*6/uL (4.60-5.80); Red Cell Distribution Width 17.1 % (11.0-16.0); White Blood Count 3.7 X10*3/uL (4.8-10.8)
[2022-06-02 14:32] LABS: Alanine Aminotransferase 27 U/L (0-40); Albumin Level 4.2 g/dL (3.5-5.0); Alkaline Phosphatase 122 U/L (39-117); Anion Gap 17 (12-20); Aspartate Amino Transferase 20 U/L (5-37); Bilirubin Total 0.3 mg/dL (0.0-1.0); Blood Urea Nitrogen 22 mg/dL (9-16); Calcium 8.6 mg/dL (8.4-10.2); Carbon Dioxide 24 mmol/L (22-29); Chloride 105 mmol/L (96-108); Estimated Glomerular Filt Rate > 60; Glucose Random 111 mg/dL (60-115); Potassium 3.8 mmol/L (3.3-5.1); Sodium 142 mmol/L (135-145); Total Protein 6.7 g/dL (6.5-8.0)
== END 2022-06-02 14:08 | disposition home or self-care (01) ==
LOC: HO.LHD 14:07
PROVIDERS: Visit Provider Internal Medicine
DX: C80.1 Malignant (primary) neoplasm, unspecified (principal)
CPT/HCPCS: 36415; 80053; 85025

== ENCOUNTER 2022-06-09 10:19 | Outpatient (REF) | payer MEDICARE, BC, SELFPAY ==
[2022-06-09 12:20] LABS: MANUAL DIFF FLAG NO
[2022-06-09 12:23] LABS: Basophils Percent Auto 0.5 % (0-2); Eosinophils Percent Auto 0.5 % (0-4); Hematocrit 30.6 % (42.0-52.0); Hemoglobin 9.7 g/dl (14.0-18.0); Imm Gran Abs Auto 0.05 X10*3/uL (0.00-0.03); Imm Gran Pct Auto 1.4 % (0.0-0.4); Lymphocytes Absolute Auto 0.8 X10*3/uL (1.2-4.9); Lymphocytes Percent Auto 22.8 % (20-40); Mean Corpuscular HGB Conc 31.7 g/dl (31.0-36.0); Mean Corpuscular Hemoglobin 31.5 pg (27.0-33.0); Mean Corpuscular Volume 99.4 fL (80.0-98.0); Mean Platelet Volume 9.1 fL (9.4-12.4); Monocytes Absolute Auto 0.4 X10*3/uL (0.1-1.2); Monocytes Percent Auto 11.3 % (2-11); Neutrophils Absolute Auto 2.3 x10*3/uL (2.0-8.3); Neutrophils Percent Auto 63.5 % (45-73); Platelet Count 178 X10*3/uL (160-400); Red Blood Count 3.08 X10*6/uL (4.60-5.80); Red Cell Distribution Width 16.9 % (11.0-16.0); White Blood Count 3.6 X10*3/uL (4.8-10.8)
[2022-06-09 13:04] LABS: Alanine Aminotransferase 25 U/L (0-40); Albumin Level 4.4 g/dL (3.5-5.0); Alkaline Phosphatase 105 U/L (39-117); Anion Gap 16 (12-20); Aspartate Amino Transferase 21 U/L (5-37); Bilirubin Total 0.5 mg/dL (0.0-1.0); Blood Urea Nitrogen 23 mg/dL (9-16); Calcium 9.4 mg/dL (8.4-10.2); Carbon Dioxide 24 mmol/L (22-29); Chloride 105 mmol/L (96-108); Estimated Glomerular Filt Rate > 60; Glucose Random 107 mg/dL (60-115); Potassium 4.2 mmol/L (3.3-5.1); Sodium 141 mmol/L (135-145); Total Protein 6.8 g/dL (6.5-8.0)
[2022-06-10 12:50] LABS: Prostate Specific Antigen 99.27 ng/mL (<0.05-4.0)
== END 2022-06-09 10:20 | disposition home or self-care (01) ==
LOC: HO.LHD 10:19
PROVIDERS: Visit Provider Internal Medicine
DX: Z12.5 Encounter for screening for malignant neoplasm of prostate (principal); C80.1 Malignant (primary) neoplasm, unspecified
CPT/HCPCS: 36415; 80053; 84153; 85025

== ENCOUNTER 2022-06-16 14:01 | Outpatient (REF) | payer MEDICARE, BC, SELFPAY ==
[2022-06-16 13:49] LABS: Basophils Percent Auto 0.7 % (0-2); Eosinophils Percent Auto 2.8 % (0-4); Hematocrit 28.7 % (42.0-52.0); Hemoglobin 9.2 g/dl (14.0-18.0); Imm Gran Abs Auto 0.01 X10*3/uL (0.00-0.03); Imm Gran Pct Auto 0.7 % (0.0-0.4); Lymphocytes Absolute Auto 0.7 X10*3/uL (1.2-4.9); Lymphocytes Percent Auto 47.2 % (20-40); MANUAL DIFF FLAG SCAN; Mean Corpuscular HGB Conc 32.1 g/dl (31.0-36.0); Mean Corpuscular Hemoglobin 31.7 pg (27.0-33.0); Mean Platelet Volume 9.9 fL (9.4-12.4); Monocytes Absolute Auto 0.1 X10*3/uL (0.1-1.2); Monocytes Percent Auto 4.9 % (2-11); Neutrophils Absolute Auto 0.6 x10*3/uL (2.0-8.3); Neutrophils Percent Auto 43.7 % (45-73); Platelet Count 195 X10*3/uL (160-400); Red Cell Distribution Width 16.3 % (11.0-16.0); SCAN SMEAR FLAG 1
[2022-06-16 13:56] LABS: White Blood Count 1.4 X10*3/uL (4.8-10.8)
[2022-06-16 14:18] LABS: SLIDE REVIEW VERIFIED
[2022-06-16 14:32] LABS: Alanine Aminotransferase 35 U/L (0-40); Albumin Level 4.2 g/dL (3.5-5.0); Alkaline Phosphatase 105 U/L (39-117); Anion Gap 16 (12-20); Aspartate Amino Transferase 21 U/L (5-37); Bilirubin Total 0.4 mg/dL (0.0-1.0); Blood Urea Nitrogen 23 mg/dL (9-16); Carbon Dioxide 26 mmol/L (22-29); Chloride 105 mmol/L (96-108); Estimated Glomerular Filt Rate > 60; Glucose Random 86 mg/dL (60-115); Potassium 4.6 mmol/L (3.3-5.1); Sodium 142 mmol/L (135-145); Total Protein 6.5 g/dL (6.5-8.0)
== END 2022-06-16 14:02 | disposition home or self-care (01) ==
LOC: HO.LHD 14:01
PROVIDERS: Visit Provider Internal Medicine
DX: C80.1 Malignant (primary) neoplasm, unspecified (principal)
CPT/HCPCS: 36415; 80053; 85025

== ENCOUNTER 2022-06-23 11:15 | Outpatient (REF) | payer MEDICARE, BC, SELFPAY ==
[2022-06-23 10:22] LABS: Basophils Percent Auto 0.7 % (0-2); Eosinophils Percent Auto 0.7 % (0-4); Hematocrit 27.7 % (42.0-52.0); Hemoglobin 8.9 g/dl (14.0-18.0); Imm Gran Abs Auto 0.01 X10*3/uL (0.00-0.03); Imm Gran Pct Auto 0.7 % (0.0-0.4); Lymphocytes Absolute Auto 0.7 X10*3/uL (1.2-4.9); Lymphocytes Percent Auto 50.3 % (20-40); MANUAL DIFF FLAG SCAN; Mean Corpuscular HGB Conc 32.1 g/dl (31.0-36.0); Mean Corpuscular Hemoglobin 31.7 pg (27.0-33.0); Mean Corpuscular Volume 98.6 fL (80.0-98.0); Monocytes Absolute Auto 0.3 X10*3/uL (0.1-1.2); Monocytes Percent Auto 21.4 % (2-11); Neutrophils Absolute Auto 0.4 x10*3/uL (2.0-8.3); Neutrophils Percent Auto 26.2 % (45-73); Platelet Count 250 X10*3/uL (160-400); Red Blood Count 2.81 X10*6/uL (4.60-5.80); Red Cell Distribution Width 16.8 % (11.0-16.0); SCAN SMEAR FLAG 1
[2022-06-23 10:23] LABS: White Blood Count 1.5 X10*3/uL (4.8-10.8)
[2022-06-23 10:57] LABS: SLIDE REVIEW VERIFIED
[2022-06-23 11:08] LABS: Alanine Aminotransferase 40 U/L (0-40); Albumin Level 4.1 g/dL (3.5-5.0); Alkaline Phosphatase 98 U/L (39-117); Anion Gap 14 (12-20); Aspartate Amino Transferase 27 U/L (5-37); Bilirubin Total 0.4 mg/dL (0.0-1.0); Blood Urea Nitrogen 19 mg/dL (9-16); Calcium 8.5 mg/dL (8.4-10.2); Carbon Dioxide 24 mmol/L (22-29); Chloride 109 mmol/L (96-108); Estimated Glomerular Filt Rate > 60; Glucose Random 115 mg/dL (60-115); Potassium 4.1 mmol/L (3.3-5.1); Sodium 143 mmol/L (135-145); Total Protein 6.3 g/dL (6.5-8.0)
== END 2022-06-23 11:16 | disposition home or self-care (01) ==
LOC: HO.LHD 11:15
PROVIDERS: Visit Provider Internal Medicine
DX: C80.1 Malignant (primary) neoplasm, unspecified (principal)
CPT/HCPCS: 36415; 80053; 85025

== ENCOUNTER 2022-06-30 09:24 | Outpatient (REF) | payer MEDICARE, BC, SELFPAY ==
[2022-06-30 11:08] LABS: MANUAL DIFF FLAG NO
[2022-06-30 11:25] LABS: Basophils Percent Auto 0.7 % (0-2); Eosinophils Percent Auto 0.4 % (0-4); Hematocrit 27.8 % (42.0-52.0); Imm Gran Abs Auto 0.07 X10*3/uL (0.00-0.03); Imm Gran Pct Auto 2.5 % (0.0-0.4); Lymphocytes Absolute Auto 0.6 X10*3/uL (1.2-4.9); Lymphocytes Percent Auto 22.6 % (20-40); Mean Corpuscular HGB Conc 32.4 g/dl (31.0-36.0); Mean Corpuscular Hemoglobin 31.7 pg (27.0-33.0); Mean Corpuscular Volume 97.9 fL (80.0-98.0); Mean Platelet Volume 9.1 fL (9.4-12.4); Monocytes Absolute Auto 0.4 X10*3/uL (0.1-1.2); Monocytes Percent Auto 13.4 % (2-11); Neutrophils Absolute Auto 1.7 x10*3/uL (2.0-8.3); Neutrophils Percent Auto 60.4 % (45-73); Platelet Count 208 X10*3/uL (160-400); Red Blood Count 2.84 X10*6/uL (4.60-5.80); Red Cell Distribution Width 16.7 % (11.0-16.0); White Blood Count 2.8 X10*3/uL (4.8-10.8)
[2022-06-30 13:36] LABS: Alanine Aminotransferase 28 U/L (0-40); Albumin Level 4.1 g/dL (3.5-5.0); Alkaline Phosphatase 93 U/L (39-117); Anion Gap 15 (12-20); Aspartate Amino Transferase 22 U/L (5-37); Bilirubin Total 0.3 mg/dL (0.0-1.0); Blood Urea Nitrogen 26 mg/dL (9-16); Calcium 8.7 mg/dL (8.4-10.2); Carbon Dioxide 24 mmol/L (22-29); Chloride 105 mmol/L (96-108); Estimated Glomerular Filt Rate > 60; Glucose Random 155 mg/dL (60-115); Potassium 3.9 mmol/L (3.3-5.1); Sodium 140 mmol/L (135-145); Total Protein 6.4 g/dL (6.5-8.0)
== END 2022-06-30 09:25 | disposition home or self-care (01) ==
LOC: HO.LHD 09:24
PROVIDERS: Visit Provider Internal Medicine
DX: C80.1 Malignant (primary) neoplasm, unspecified (principal)
CPT/HCPCS: 36415; 80053; 85025

== ENCOUNTER 2022-07-07 07:53 | Outpatient (REF) | payer MEDICARE, BC, SELFPAY ==
[2022-07-07 10:49] LABS: MANUAL DIFF FLAG NO
[2022-07-07 10:52] LABS: Basophils Percent Auto 0.7 % (0-2); Eosinophils Absolute Auto 0.1 X10*3/uL (0.0-0.4); Eosinophils Percent Auto 1.8 % (0-4); Hematocrit 26.6 % (42.0-52.0); Hemoglobin 8.6 g/dl (14.0-18.0); Imm Gran Abs Auto 0.04 X10*3/uL (0.00-0.03); Imm Gran Pct Auto 1.4 % (0.0-0.4); Lymphocytes Absolute Auto 0.8 X10*3/uL (1.2-4.9); Mean Corpuscular HGB Conc 32.3 g/dl (31.0-36.0); Mean Corpuscular Hemoglobin 31.7 pg (27.0-33.0); Mean Corpuscular Volume 98.2 fL (80.0-98.0); Mean Platelet Volume 8.8 fL (9.4-12.4); Monocytes Absolute Auto 0.3 X10*3/uL (0.1-1.2); Monocytes Percent Auto 10.7 % (2-11); Neutrophils Absolute Auto 1.6 x10*3/uL (2.0-8.3); Neutrophils Percent Auto 55.4 % (45-73); Platelet Count 157 X10*3/uL (160-400); Red Blood Count 2.71 X10*6/uL (4.60-5.80); Red Cell Distribution Width 16.6 % (11.0-16.0); White Blood Count 2.8 X10*3/uL (4.8-10.8)
[2022-07-07 11:06] LABS: Alanine Aminotransferase 23 U/L (0-40); Alkaline Phosphatase 95 U/L (39-117); Anion Gap 14 (12-20); Aspartate Amino Transferase 19 U/L (5-37); Bilirubin Total 0.2 mg/dL (0.0-1.0); Blood Urea Nitrogen 22 mg/dL (9-16); Calcium 8.6 mg/dL (8.4-10.2); Carbon Dioxide 25 mmol/L (22-29); Chloride 105 mmol/L (96-108); Estimated Glomerular Filt Rate > 60; Glucose Random 163 mg/dL (60-115); Potassium 4.2 mmol/L (3.3-5.1); Sodium 140 mmol/L (135-145); Total Protein 6.2 g/dL (6.5-8.0)
== END 2022-07-07 07:54 | disposition home or self-care (01) ==
LOC: HO.LHD 07:53
PROVIDERS: Visit Provider Internal Medicine
DX: C61 Malignant neoplasm of prostate (principal); C79.51 Secondary malignant neoplasm of bone
CPT/HCPCS: 36415; 80053; 85025

== ENCOUNTER 2022-07-19 06:01 | Outpatient (REF) | payer MEDICARE, BC, SELFPAY ==
[2022-07-14 11:47] LABS: Alanine Aminotransferase 38 U/L (0-40); Albumin Level 4.3 g/dL (3.5-5.0); Alkaline Phosphatase 95 U/L (39-117); Anion Gap 15 (12-20); Aspartate Amino Transferase 22 U/L (5-37); Bilirubin Total 0.5 mg/dL (0.0-1.0); Blood Urea Nitrogen 27 mg/dL (9-16); Calcium 8.8 mg/dL (8.4-10.2); Carbon Dioxide 25 mmol/L (22-29); Chloride 104 mmol/L (96-108); Estimated Glomerular Filt Rate > 60; Glucose Random 126 mg/dL (60-115); Potassium 4.1 mmol/L (3.3-5.1); Sodium 140 mmol/L (135-145); Total Protein 6.6 g/dL (6.5-8.0)
[2022-07-14 11:56] LABS: Basophils Percent Auto 1.2 % (0-2); Eosinophils Percent Auto 2.4 % (0-4); Hematocrit 28.3 % (42.0-52.0); Hemoglobin 9.1 g/dl (14.0-18.0); Imm Gran Abs Auto 0.02 X10*3/uL (0.00-0.03); Imm Gran Pct Auto 1.2 % (0.0-0.4); Lymphocytes Absolute Auto 0.8 X10*3/uL (1.2-4.9); Lymphocytes Percent Auto 49.7 % (20-40); MANUAL DIFF FLAG SCAN; Mean Corpuscular HGB Conc 32.2 g/dl (31.0-36.0); Mean Corpuscular Hemoglobin 31.6 pg (27.0-33.0); Mean Corpuscular Volume 98.3 fL (80.0-98.0); Mean Platelet Volume 9.3 fL (9.4-12.4); Monocytes Absolute Auto 0.1 X10*3/uL (0.1-1.2); Monocytes Percent Auto 3.6 % (2-11); Neutrophils Absolute Auto 0.7 x10*3/uL (2.0-8.3); Neutrophils Percent Auto 41.9 % (45-73); Platelet Count 213 X10*3/uL (160-400); Red Blood Count 2.88 X10*6/uL (4.60-5.80); Red Cell Distribution Width 16.1 % (11.0-16.0); SCAN SMEAR FLAG 1
[2022-07-14 12:02] LABS: White Blood Count 1.7 X10*3/uL (4.8-10.8)
[2022-07-14 12:50] LABS: SLIDE REVIEW VERIFIED
== END 2022-07-19 06:02 | disposition home or self-care (01) ==
LOC: HO.LHD 06:01
PROVIDERS: Visit Provider Internal Medicine
DX: C80.1 Malignant (primary) neoplasm, unspecified (principal)
CPT/HCPCS: 36415; 80053; 85025

== ENCOUNTER 2022-07-22 05:43 | Outpatient (REF) | payer MEDICARE, BC, SELFPAY ==
[2022-07-21 15:02] LABS: Basophils Percent Auto 0.8 % (0-2); Eosinophils Percent Auto 0.8 % (0-4); Hematocrit 28.4 % (42.0-52.0); Imm Gran Abs Auto 0.01 X10*3/uL (0.00-0.03); Imm Gran Pct Auto 0.8 % (0.0-0.4); Lymphocytes Absolute Auto 0.6 X10*3/uL (1.2-4.9); Lymphocytes Percent Auto 45.2 % (20-40); MANUAL DIFF FLAG SCAN; Mean Corpuscular HGB Conc 31.7 g/dl (31.0-36.0); Mean Corpuscular Hemoglobin 31.6 pg (27.0-33.0); Mean Corpuscular Volume 99.6 fL (80.0-98.0); Monocytes Absolute Auto 0.3 X10*3/uL (0.1-1.2); Neutrophils Absolute Auto 0.4 x10*3/uL (2.0-8.3); Neutrophils Percent Auto 31.4 % (45-73); Platelet Count 212 X10*3/uL (160-400); Red Blood Count 2.85 X10*6/uL (4.60-5.80); Red Cell Distribution Width 16.6 % (11.0-16.0); SCAN SMEAR FLAG 1
[2022-07-21 15:10] LABS: Estimated Average Glucose 128 mg/dL; Hemoglobin A1c % 6.1 %; White Blood Count 1.2 X10*3/uL (4.8-10.8)
[2022-07-21 15:16] LABS: Appearance Urine Clear; Color Urine Yellow; Glucose Urine UA Negative (Negative); Leukocyte Esterase Urine Negative (Negative); Nitrite Urine Negative (Negative); PH 5.5 (5.0-9.0); Specific Gravity - Urine <= 1.005 (1.005-1.025); Urine Blood Negative (Negative); Urine Ketones Negative (Negative); Urine Protein Negative (Neg-Trace)
[2022-07-21 15:24] LABS: Alanine Aminotransferase 25 U/L (0-40); Albumin Level 4.1 g/dL (3.5-5.0); Alkaline Phosphatase 96 U/L (39-117); Anion Gap 15 (12-20); Aspartate Amino Transferase 21 U/L (5-37); Bilirubin Total 0.2 mg/dL (0.0-1.0); Blood Urea Nitrogen 19 mg/dL (9-16); Calcium 9.2 mg/dL (8.4-10.2); Carbon Dioxide 27 mmol/L (22-29); Chloride 102 mmol/L (96-108); Cholesterol 177 mg/dL; Estimated Glomerular Filt Rate > 60; Glucose Fasting 135 mg/dL (60-99); HDL Cholesterol 45 mg/dL; LDL Cholesterol Calculated 88 mg/dl; Potassium 4.1 mmol/L (3.3-5.1); Sodium 140 mmol/L (135-145); Total Protein 6.4 g/dL (6.5-8.0); Triglycerides 222 mg/dL
[2022-07-21 15:44] LABS: Free T4 (Free Thyroxine) 1.12 ng/dL (0.71-1.85); Vitamin D 25-OH Total 22.8 ng/mL (>30)
[2022-07-21 15:45] LABS: Thyroid Stimulating Hormone 2.38 uIU/mL (0.32-4.0)
[2022-07-21 15:47] LABS: SLIDE REVIEW VERIFIED
[2022-07-21 16:16] LABS: Creatinine Urine 22.39 mg/dL; Microalbumin Urine < 5.0 mg/L
== END 2022-07-22 05:44 | disposition home or self-care (01) ==
LOC: HO.LHD 05:43
PROVIDERS: Internal Medicine; Internal Medicine Medical Oncology; Visit Provider Internal Medicine
DX: C61 Malignant neoplasm of prostate (principal); C79.51 Secondary malignant neoplasm of bone; E03.9 Hypothyroidism, unspecified; E11.9 Type 2 diabetes mellitus without complications; I10 Essential (primary) hypertension; E78.00 Pure hypercholesterolemia, unspecified; E55.9 Vitamin D deficiency, unspecified
CPT/HCPCS: 36415; 80053; 80061; 81003; 82043; 82306; 83036; 84439; 84443; 85025

== ENCOUNTER 2022-07-28 06:25 | Outpatient (REF) | payer MEDICARE, BC, SELFPAY ==
[2022-07-28 13:41] LABS: MANUAL DIFF FLAG NO
[2022-07-28 13:46] LABS: Basophils Percent Auto 0.6 % (0-2); Hematocrit 28.9 % (42.0-52.0); Hemoglobin 9.3 g/dl (14.0-18.0); Imm Gran Abs Auto 0.16 X10*3/uL (0.00-0.03); Imm Gran Pct Auto 4.9 % (0.0-0.4); Lymphocytes Absolute Auto 0.8 X10*3/uL (1.2-4.9); Lymphocytes Percent Auto 24.9 % (20-40); Mean Corpuscular HGB Conc 32.2 g/dl (31.0-36.0); Mean Corpuscular Volume 99.3 fL (80.0-98.0); Mean Platelet Volume 8.9 fL (9.4-12.4); Monocytes Absolute Auto 0.4 X10*3/uL (0.1-1.2); Monocytes Percent Auto 11.9 % (2-11); Neutrophils Absolute Auto 1.9 x10*3/uL (2.0-8.3); Neutrophils Percent Auto 57.7 % (45-73); Platelet Count 234 X10*3/uL (160-400); Red Blood Count 2.91 X10*6/uL (4.60-5.80); Red Cell Distribution Width 16.6 % (11.0-16.0); White Blood Count 3.3 X10*3/uL (4.8-10.8)
[2022-07-28 14:11] LABS: Alanine Aminotransferase 29 U/L (0-40); Albumin Level 4.4 g/dL (3.5-5.0); Alkaline Phosphatase 105 U/L (39-117); Anion Gap 14 (12-20); Aspartate Amino Transferase 21 U/L (5-37); Bilirubin Total 0.4 mg/dL (0.0-1.0); Blood Urea Nitrogen 19 mg/dL (9-16); Calcium 9.2 mg/dL (8.4-10.2); Carbon Dioxide 25 mmol/L (22-29); Chloride 104 mmol/L (96-108); Estimated Glomerular Filt Rate > 60; Glucose Random 107 mg/dL (60-115); Potassium 3.9 mmol/L (3.3-5.1); Sodium 139 mmol/L (135-145)
== END 2022-07-28 06:26 | disposition home or self-care (01) ==
LOC: HO.LHD 06:25
PROVIDERS: Visit Provider Internal Medicine
DX: C61 Malignant neoplasm of prostate (principal); C79.51 Secondary malignant neoplasm of bone
CPT/HCPCS: 36415; 80053; 85025

== ENCOUNTER 2022-08-04 05:45 | Outpatient (REF) | payer MEDICARE, BC, SELFPAY ==
[2022-08-04 11:22] LABS: MANUAL DIFF FLAG NO
[2022-08-04 11:28] LABS: Basophils Percent Auto 0.2 % (0-2); Hematocrit 29.2 % (42.0-52.0); Hemoglobin 9.4 g/dl (14.0-18.0); Imm Gran Abs Auto 0.16 X10*3/uL (0.00-0.03); Lymphocytes Absolute Auto 0.7 X10*3/uL (1.2-4.9); Lymphocytes Percent Auto 13.7 % (20-40); Mean Corpuscular HGB Conc 32.2 g/dl (31.0-36.0); Mean Corpuscular Hemoglobin 31.8 pg (27.0-33.0); Mean Corpuscular Volume 98.6 fL (80.0-98.0); Mean Platelet Volume 9.1 fL (9.4-12.4); Monocytes Absolute Auto 0.5 X10*3/uL (0.1-1.2); Monocytes Percent Auto 9.3 % (2-11); Neutrophils Percent Auto 73.8 % (45-73); Platelet Count 191 X10*3/uL (160-400); Red Blood Count 2.96 X10*6/uL (4.60-5.80); White Blood Count 5.4 X10*3/uL (4.8-10.8)
[2022-08-04 12:04] LABS: Alanine Aminotransferase 30 U/L (0-40); Albumin Level 4.4 g/dL (3.5-5.0); Alkaline Phosphatase 84 U/L (39-117); Anion Gap 17 (12-20); Aspartate Amino Transferase 17 U/L (5-37); Bilirubin Total 0.5 mg/dL (0.0-1.0); Blood Urea Nitrogen 27 mg/dL (9-16); Calcium 9.1 mg/dL (8.4-10.2); Carbon Dioxide 24 mmol/L (22-29); Chloride 103 mmol/L (96-108); Estimated Glomerular Filt Rate > 60; Glucose Random 104 mg/dL (60-115); Sodium 140 mmol/L (135-145); Total Protein 6.9 g/dL (6.5-8.0)
[2022-08-04 12:29] LABS: HBS Num1 2.47 mIU/mL (0-7.99); HBc Num1 0.04 S/CO (0.00-0.79); HBsAGNum1 0.19 S/CO (0.00-0.99); Hepatitis B Core Antibody Nonreactive (Nonreactive); Hepatitis B Surface Antigen Negative (Negative); ~Hepatitis B Surface Antibody NONREACTIVE (Nonreactive)
== END 2022-08-04 05:46 | disposition home or self-care (01) ==
LOC: HO.LHD 05:45
PROVIDERS: Visit Provider Internal Medicine
DX: Z12.5 Encounter for screening for malignant neoplasm of prostate (principal); C61 Malignant neoplasm of prostate; C79.51 Secondary malignant neoplasm of bone
CPT/HCPCS: 36415; 80053; 84153; 85025; 86704; 86706; 87340

== ENCOUNTER 2022-08-11 13:56 | Outpatient (REF) | payer MEDICARE, BC, SELFPAY ==
[2022-08-11 13:31] LABS: MANUAL DIFF FLAG NO
[2022-08-11 13:56] LABS: Basophils Percent Auto 0.2 % (0-2); Eosinophils Percent Auto 0.3 % (0-4); Hematocrit 29.6 % (42.0-52.0); Hemoglobin 9.5 g/dl (14.0-18.0); Imm Gran Abs Auto 0.09 X10*3/uL (0.00-0.03); Imm Gran Pct Auto 1.6 % (0.0-0.4); Lymphocytes Percent Auto 16.6 % (20-40); Mean Corpuscular HGB Conc 32.1 g/dl (31.0-36.0); Mean Corpuscular Hemoglobin 32.4 pg (27.0-33.0); Mean Platelet Volume 9.2 fL (9.4-12.4); Monocytes Absolute Auto 0.5 X10*3/uL (0.1-1.2); Monocytes Percent Auto 8.7 % (2-11); Neutrophils Absolute Auto 4.2 x10*3/uL (2.0-8.3); Neutrophils Percent Auto 72.6 % (45-73); Platelet Count 205 X10*3/uL (160-400); Red Blood Count 2.93 X10*6/uL (4.60-5.80); Red Cell Distribution Width 17.5 % (11.0-16.0); White Blood Count 5.7 X10*3/uL (4.8-10.8)
[2022-08-11 14:32] LABS: Alanine Aminotransferase 32 U/L (0-40); Albumin Level 4.1 g/dL (3.5-5.0); Alkaline Phosphatase 100 U/L (39-117); Anion Gap 16 (12-20); Aspartate Amino Transferase 16 U/L (5-37); Bilirubin Total 0.4 mg/dL (0.0-1.0); Blood Urea Nitrogen 31 mg/dL (9-16); Calcium 9.3 mg/dL (8.4-10.2); Carbon Dioxide 26 mmol/L (22-29); Chloride 101 mmol/L (96-108); Estimated Glomerular Filt Rate > 60; Glucose Random 112 mg/dL (60-115); Potassium 3.7 mmol/L (3.3-5.1); Sodium 139 mmol/L (135-145); Total Protein 6.7 g/dL (6.5-8.0)
== END 2022-08-11 13:57 | disposition home or self-care (01) ==
LOC: HO.LHD 13:56
PROVIDERS: Visit Provider Internal Medicine
DX: C80.1 Malignant (primary) neoplasm, unspecified (principal)
CPT/HCPCS: 36415; 80053; 85025

== ENCOUNTER 2022-08-19 11:40 | Outpatient (REF) | payer MEDICARE, BC, SELFPAY ==
[2022-08-19 10:10] LABS: MANUAL DIFF FLAG NO
[2022-08-19 10:15] LABS: Eosinophils Absolute Auto 0.1 X10*3/uL (0.0-0.4); Eosinophils Percent Auto 1.3 % (0-4); Hematocrit 28.8 % (42.0-52.0); Imm Gran Abs Auto 0.02 X10*3/uL (0.00-0.03); Imm Gran Pct Auto 0.5 % (0.0-0.4); Lymphocytes Absolute Auto 0.7 X10*3/uL (1.2-4.9); Lymphocytes Percent Auto 18.4 % (20-40); Mean Corpuscular HGB Conc 31.3 g/dl (31.0-36.0); Mean Corpuscular Hemoglobin 31.9 pg (27.0-33.0); Mean Corpuscular Volume 102.1 fL (80.0-98.0); Mean Platelet Volume 9.2 fL (9.4-12.4); Monocytes Absolute Auto 0.4 X10*3/uL (0.1-1.2); Monocytes Percent Auto 11.4 % (2-11); Neutrophils Absolute Auto 2.6 x10*3/uL (2.0-8.3); Neutrophils Percent Auto 68.4 % (45-73); Platelet Count 215 X10*3/uL (160-400); Red Blood Count 2.82 X10*6/uL (4.60-5.80); Red Cell Distribution Width 17.1 % (11.0-16.0); White Blood Count 3.8 X10*3/uL (4.8-10.8)
[2022-08-19 12:01] LABS: Alanine Aminotransferase 33 U/L (0-40); Alkaline Phosphatase 100 U/L (39-117); Anion Gap 15 (12-20); Aspartate Amino Transferase 23 U/L (5-37); Bilirubin Total 0.5 mg/dL (0.0-1.0); Blood Urea Nitrogen 28 mg/dL (9-16); Calcium 8.8 mg/dL (8.4-10.2); Carbon Dioxide 23 mmol/L (22-29); Chloride 108 mmol/L (96-108); Estimated Glomerular Filt Rate > 60; Glucose Random 144 mg/dL (60-115); Potassium 4.2 mmol/L (3.3-5.1); Sodium 142 mmol/L (135-145); Total Protein 6.2 g/dL (6.5-8.0)
== END 2022-08-19 11:41 | disposition home or self-care (01) ==
LOC: HO.LHD 11:40
PROVIDERS: Visit Provider Internal Medicine
DX: C80.1 Malignant (primary) neoplasm, unspecified (principal)
CPT/HCPCS: 36415; 80053; 85025

== ENCOUNTER → 2022-10-31 09:48 | Outpatient (BNVA) | payer MEDICARE, BC, SELFPAY | PROVIDERS: PCP Internal Medicine; Visit Provider Dietitian, Registered | DX: E11.9 Type 2 diabetes mellitus without complications (principal); Z71.3 Dietary counseling and surveillance | CPT/HCPCS: 97803 ==

== ENCOUNTER 2022-11-24 10:23 | Outpatient (REF) | payer MEDICARE, BC, SELFPAY ==
--- NOTE | ~2022-11-24 | XR_ITS ---
EXAMINATION: XR CHEST CLINICAL INFORMATION: Dyspnea. COMPARISON: July 28, 2020 TECHNIQUE: 2 views of the chest were obtained. FINDINGS: There is no evidence of acute parenchymal disease, pneumothorax, or pleural effusion. Heart normal size. No evidence of pulmonary edema. Catheter seen in place with tip at the caval atrial junction. There is diffuse sclerotic bone lesions consistent with known prostatic carcinoma. XR/XR chest 2V IMPRESSION: No acute disease.
== END 2022-11-24 10:24 | disposition home or self-care (01) ==
LOC: HO.XRAY 10:23
PROVIDERS: PCP Internal Medicine; Visit Provider Internal Medicine
DX: R06.00 Dyspnea, unspecified (principal)
CPT/HCPCS: 71046

== ENCOUNTER → 2022-11-28 12:33 | Outpatient (BNVA) | payer MEDICARE, BC, SELFPAY | PROVIDERS: PCP Internal Medicine; Referring Provider Internal Medicine; Visit Provider Internal Medicine | DX: I35.1 Nonrheumatic aortic (valve) insufficiency (principal); I77.810 Thoracic aortic ectasia | CPT/HCPCS: 93005; 99212 ==

== ENCOUNTER 2023-02-14 07:43 | Outpatient (REF) | payer MEDICARE, BC, SELFPAY ==
[2023-02-14 11:41] LABS: Hematocrit 27.2 % (42.0-52.0); Hemoglobin 8.6 g/dl (14.0-18.0); Mean Corpuscular HGB Conc 31.6 g/dl (31.0-36.0); Mean Corpuscular Hemoglobin 31.2 pg (27.0-33.0); Mean Corpuscular Volume 98.6 fL (80.0-98.0); Mean Platelet Volume 9.7 fL (9.4-12.4); Platelet Count 112 X10*3/uL (160-400); Red Blood Count 2.76 X10*6/uL (4.60-5.80); Red Cell Distribution Width 18.2 % (11.0-16.0)
[2023-02-14 11:45] LABS: NRBC Pct Auto 1.4 /100WBC (0.0-0.2); WBC ABN SCTR FOR CBC 1
[2023-02-14 12:19] LABS: Alanine Aminotransferase 24 U/L (0-40); Albumin Level 3.8 g/dL (3.5-5.0); Alkaline Phosphatase 310 U/L (39-117); Anion Gap 14 (12-20); Aspartate Amino Transferase 18 U/L (5-37); Bilirubin Total 0.8 mg/dL (0.0-1.0); Blood Urea Nitrogen 20 mg/dL (9-16); Calcium 7.8 mg/dL (8.4-10.2); Carbon Dioxide 24 mmol/L (22-29); Chloride 107 mmol/L (96-108); Estimated Glomerular Filt Rate > 60; Glucose Random 113 mg/dL (60-115); Potassium 4.5 mmol/L (3.3-5.1); Sodium 140 mmol/L (135-145); Total Protein 5.8 g/dL (6.5-8.0)
[2023-02-14 12:49] LABS: Atypical Lymphs Percent Manual 1 % (0-6); Band Neutrophils Percent 27 % (3-5); Eosinophils Percent Manual 1 % (0-4); Lymphocytes Percent Manual 12 % (20-40); Metamyelocytes Percent 5 %; Monocytes Percent Manual 4 % (2-11); Neutrophils Percent Manual 50 % (45-73)
[2023-02-14 12:51] LABS: Macrocytosis 1+ (5-14) /OIF; Ovalocytes 1+ (5-14) /OIF; Platelet Estimate DECREASED (NORMAL); Platelet Morphology Comment NORMAL; Polychromasia 1+ (0-2) /OIF; RBC Morphology NOTED; Tear Drop Cells 2+ (3-5) /OIF
[2023-02-14 13:27] LABS: Atypical Lymph Absolute Manual 0.1 x10*3/uL; Eosinophils Absolute Manual 0.1 X10*3/uL (0.0-0.4); Lymphocytes Absolute Manual 0.7 X10*3/uL (1.2-4.9); Metamyelocytes Absolute 0.3 X10*3/uL; Monocytes Absolute Manual 0.2 X10*3/uL (0.1-1.2); Neutrophils Absolute Manual 4.5 X10*3/uL (2.0-8.3); White Blood Count 5.9 X10*3/uL (4.8-10.8)
== END 2023-02-14 07:44 | disposition home or self-care (01) ==
LOC: HO.LHD 07:43
PROVIDERS: Visit Provider Internal Medicine
DX: Z13.89 Encounter for screening for other disorder (principal)
CPT/HCPCS: 36415; 80053; 85007; 85027

== ENCOUNTER → 2023-02-23 09:59 | Outpatient (REF) | payer MEDICARE, BC, SELFPAY ==
--- NOTE | 2023-02-23 10:02 | CA_ITS ---
Transthoracic Echocardiogram Patient (Last, First, Middle): Nixon Morgan, Gender: Male Date of : 1940 Age: 82 Procedure Date: 02/23/2023 Procedure Type: Transthoracic Echocardiogram Location: OP Height: 175.26 cm Weight: 72.58 kg BSA: 1.88 m2 Heart Rate: 82 bpm BP: 118 / 72 mmHg Worm Sorter: AI Referring MD: Rose Gonzalez MD Core Winder: Efrain Lucero MD Symptoms: on chemo Study Quality: Adequate ECG Rhythm: Sinus Conclusions: - 1. Normal LV systolic function with impaired relaxation filling pattern 2. Tust-[id number]-wqcvpuip aortic regurgitation 3. Mildly dilated ascending aorta at 3.8 cm 4. Normal RV systolic pressure 5. No pericardial effusion Findings Left Ventricle Normal left ventricular size, thickness, and systolic function. The visually estimated ejection fraction is between 60-65%. Spectral Doppler is indicative of an impaired relaxation filling pattern. E/E prime ratio is between 8 and 15 consistent with indeterminate filling pressures. Peak GLS is -17.7%, borderline normal. Right Ventricle Normal right ventricular cavity size and systolic function. Atria The left atrium is normal in size. There is lipomatous hypertrophy of the interatrial septum. There is no evidence of interatrial shunt. The right atrium is normal in size. Aortic Valve Normal aortic valve structure and function. There is no aortic valve stenosis. There is mild to moderate aortic valve regurgitation. Mitral Valve Normal mitral valve structure and function. There is trace mitral valve regurgitation. There is no mitral valve stenosis. Pulmonic Valve The pulmonic valve is likely normal. Tricuspid Valve Normal tricuspid valve structure. There is trace tricuspid valve regurgitation. The right ventricular systolic pressure is normal. The right ventricular systolic pressure is 28 mmHg. Normal right atrial pressure. There is no evidence of pulmonary hypertension. Great Vessels The pulmonary artery was not well visualized. There is mild dilatation of the ascending aorta measuring 3.80 cm. Venous The inferior vena cava is normal in size and collapses greater than 50% with inspiration. Pericardium/Pleural There is no evidence of pericardial effusion. Prior Study Comparison No significant change compared to prior study dated: 02/18/2022. Measurements 2D Linear Measurements IVSd: 1.20 0.6-0.9/0.6-1.0 cm LVIDd: 4.44 3.9-5.3/4.2-5.9 cm LVIDd Index: 2.36 2.4-3.2/2.2-3.1 cm/m2 LVIDs: 2.42 2.0-3.6 cm LVPWd: 0.94 0.7-1.1 cm LA Diam: 3.00 2.7-3.8/3.0-4.0 cm LAIDs Index: 1.60 1.5-2.3 cm/m2 LV Mass: 205.66 67-162/88-224 g LV Mass Index: 109.39 43-95/49-115 g/m2 LVOT Diam: 2.20 3.0+(-)1.3 cm 2D Systolic Function EF 4C: 61.60 >55% EF 2C: 61.80 >55% EF BiP: 61.70 >55% Mitral Valve MV Pk E: 0.52 MV PK A: 0.70 MV Decel Time: 371.00 E/A: 0.70 E'Lateral: 6.96 E'Medial: 5.33 E/E' Med: 9.80 E/E' Lat: 7.50 PHT: 109.00 MVA PHT: 2.02 Decel [place]: 1.41 Aortic Valve AoV Pk Jameson: 1.50 AoV Mn Jameson: 0.99 AoV VTI: 0.26 AoV Pk Grad: 9.00 Aov Mn Grad: 5.00 LISA Cont.VTI: 3.54 AI Pk Jameson: 4.16 AI [place]: 3.44 LVOT LVOT Pk Jameson: 1.19 LVOT Mn [place]: 0.81 LVOT VTI: 0.24 LVOT Pk Grad: 6.00 LVOT Mn Grad: 3.00 LVOT Diam: 2.20 LVOT Area: 3.80 Diastolic Function MV Pk E: 0.52 MV Pk A: 0.70 E/A: 0.70 E'Medial: 5.33 E/E' Med: 9.80 E' Laterial: 6.96 E/E' Lat: 7.50 Right Ventricle TAPSE (mm): 20.00 TVS' [place]: 16.60 Tricuspid Valve TR Pk Jameson: 2.52 TR Pk Grad: 25.00 RA Press: 3.00 RVSP: 28.00 Great Vessels Aorta Sinus of Valsalva: 3.86 2.0-3.[address] [place]: 3.05 1.7-3.4 cm Ao Asc: 3.80 2.1-3.4 cm Updated in Other Vendor System with Status of Final Efrain Lucero MD electronically signed on 02/24/2023 2:32:54 PM with status of Final
== END ==
LOC: HO.CARD 09:59
PROVIDERS: PCP Internal Medicine; Visit Provider Internal Medicine
DX: C61 Malignant neoplasm of prostate (principal); C79.51 Secondary malignant neoplasm of bone
CPT/HCPCS: 93306; 93356

== ENCOUNTER 2023-04-11 10:53 | Outpatient (REF) | payer MEDICARE, BC, SELFPAY ==
[2023-04-11 12:06] LABS: Appearance Urine Clear; Color Urine Yellow; Glucose Urine UA Negative (Negative); Leukocyte Esterase Urine Negative (Negative); Nitrite Urine Negative (Negative); PH 5.5 (5.0-9.0); Specific Gravity - Urine 1.025 (1.005-1.025); UMIC TRIGGER UACC YES; Urine Blood Negative (Negative); Urine Ketones Negative (Negative); Urine Protein 30 (1+) mg/dL (Neg-Trace)
[2023-04-11 12:09] LABS: Hemoglobin 8.6 g/dl (14.0-18.0); Mean Corpuscular HGB Conc 30.7 g/dl (31.0-36.0); Mean Corpuscular Hemoglobin 32.1 pg (27.0-33.0); Mean Corpuscular Volume 104.5 fL (80.0-98.0); Mean Platelet Volume 9.9 fL (9.4-12.4); Red Blood Count 2.68 X10*6/uL (4.60-5.80); Red Cell Distribution Width 19.9 % (11.0-16.0); White Blood Count 10.8 X10*3/uL (4.8-10.8)
[2023-04-11 12:10] LABS: Bacteria Urine None Seen (None Seen); Hyaline Casts Urine 0-2 /LPF (0-2); RBC Urine 0-2 /HPF (0-2); Squamous Epithelial Cell Urine 0-2 /HPF (0-2); WBC Urine 0-5 /HPF (0-5)
[2023-04-11 12:20] LABS: NRBC Pct Auto 15.6 /100WBC (0.0-0.2); Platelet Count 82 X10*3/uL (160-400)
[2023-04-11 12:27] LABS: Estimated Average Glucose 143 mg/dL; Hemoglobin A1c % 6.6 %
[2023-04-11 13:00] LABS: Atypical Lymph Absolute Manual 0.2 x10*3/uL; Atypical Lymphs Percent Manual 2 % (0-6); Band Neutrophils Percent 10 % (3-5); Eosinophils Absolute Manual 0.1 X10*3/uL (0.0-0.4); Eosinophils Percent Manual 1 % (0-4); Lymphocytes Absolute Manual 1.4 X10*3/uL (1.2-4.9); Lymphocytes Percent Manual 13 % (20-40); Macrocytosis 1+ (5-14) /OIF; Metamyelocytes Absolute 0.2 X10*3/uL; Metamyelocytes Percent 2 %; Monocytes Percent Manual 9 % (2-11); Myelocytes Absolute 0.1 X10*/uL; Myelocytes Percent 1 %; Neutrophils Absolute Manual 7.8 X10*3/uL (2.0-8.3); Neutrophils Percent Manual 62 % (45-73); Nucleated Red Blood Cells 16 /100WBC (0-0); RBC Morphology NOTED
[2023-04-11 13:01] LABS: Basophilic Stippling 1+ (0-2) /OIF; Hypochromasia 1+ (5-14) /OIF; Ovalocytes 1+ (5-14) /OIF; Polychromasia 2+ (3-5) /OIF; Tear Drop Cells 2+ (3-5) /OIF
[2023-04-11 13:02] LABS: Platelet Estimate DECREASED (NORMAL); Platelet Morphology Comment NORMAL
[2023-04-11 13:46] LABS: Alanine Aminotransferase 20 U/L (0-40); Albumin Level 4.3 g/dL (3.5-5.0); Alkaline Phosphatase 238 U/L (39-117); Anion Gap 15 (12-20); Aspartate Amino Transferase 23 U/L (5-37); Bilirubin Total 0.6 mg/dL (0.0-1.0); Blood Urea Nitrogen 23 mg/dL (9-16); Calcium 8.8 mg/dL (8.4-10.2); Carbon Dioxide 22 mmol/L (22-29); Chloride 106 mmol/L (96-108); Cholesterol 161 mg/dL; Estimated Glomerular Filt Rate > 60; Glucose Fasting 175 mg/dL (60-99); Glucose Random 175 mg/dL (60-115); HDL Cholesterol 38 mg/dL; LDL Cholesterol Calculated 69 mg/dl; Sodium 139 mmol/L (135-145); Total Protein 7.1 g/dL (6.5-8.0); Triglycerides 274 mg/dL
[2023-04-11 13:52] LABS: Thyroid Stimulating Hormone 1.54 uIU/mL (0.32-4.0)
== END 2023-04-11 10:54 | disposition home or self-care (01) ==
LOC: HO.LAB 10:53
PROVIDERS: PCP Internal Medicine; Visit Provider Internal Medicine
DX: E78.00 Pure hypercholesterolemia, unspecified (principal); E11.9 Type 2 diabetes mellitus without complications; E55.9 Vitamin D deficiency, unspecified; E03.9 Hypothyroidism, unspecified; C61 Malignant neoplasm of prostate; C79.51 Secondary malignant neoplasm of bone
CPT/HCPCS: 36415; 80053; 80061; 81001; 81003; 82306; 83036; 84443; 85007; 85025; 85027

== ENCOUNTER 2023-04-18 09:30 | Outpatient (AMB) | payer MEDICARE, BC, SELFPAY ==
[2023-04-18 09:31] VITALS: BP 110/70; PULSE 96; O2SAT 97; BMI 26.9
--- NOTE | 2023-04-18 09:31 | MHC.PC.OV ---
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 Accompanied by: Self / Same As Patient Allergies No Known Allergies Allergy (Verified 04/18/23 09:59) Medication List - Last Reconciled 04/18/23 by Héctor Perla MD acetaminophen 650 mg (2 x 325 mg) PO Q6H PRN 30 days atorvastatin 80 mg PO BEDTIME 90 days denosumab (Xgeva) 120 mg subcut Q4W glipizide ER 2.5 mg PO BEDTIME 90 days leuprolide acetate (6 month) (Eligard) 45 mg subcut [id number] levothyroxine 88 mcg PO DAILY 90 days nut.tx.gluc intol,lf,soy-fiber 0.06-1.1 gram-kcal/mL (Boost Glucose Control) 1 ea PO BID ondansetron HCl 4 mg PO Q6H PRN prednisone 5 mg PO DAILY vit C,Z-Us-jxptg-lutein-zeaxan 250-90-40-1 mg (PreserVision AREDS-2) 1 tab PO QAM Tobacco use date assessed: 04/18/23 Fall risk assessment: No Falls in past year Last assessed Fall Risk: 04/18/23 Dental Screening Dental Screen Date: 04/18/23 Did you have a dental visit in the last 12 months?: Yes Did you have a dental problem in the last 6 months where you did not have access to dental care?: No Was dental information given to patient?: Patient has dentist HPI prostate CA, DM, hyperlipidemia, hypothyroidism HPI Details Patient comes in today for his follow up visit States that he continues to experience frequent/recurrent dizziness, especially when he gets up and moves around and with changes in position Also notes frequent issues with his vision lately; notes that he seems to see clearer when he removes his glasses and covers one eye Was sent for a brain MRI by oncology recently to r/o brain mets but states that he had a whole body PET scan done instead at [facility] recently and has a follow up appointment with Dr. Gonzalez later today to discuss his findings He denies any headaches Denies any exertional chest pains but still has frequent HYATT although this has not gotten any worse Had chest x-rays done back in November 2022 that came out with no acute disease (+) occasional nausea but no vomiting or abdominal pain noted; states that he still does not have a good appetite and eats very poorly No change in bowel habits noted Needs his Glipizide ER Rx refilled Had his follow up labs done last week - to discuss his results [facility] Medical History Acquired hypothyroidism Ascending aorta dilatation COVID-19 vaccine series completed Diabetes mellitus Family history of anesthesia complication GERD without esophagitis History of chemotherapy Legionella pneumonia Non-rheumatic aortic regurgitation Overweight (BMI 25.0-29.9) Port-A-Cath in place Primary osteoarthritis of right knee 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 Mother No problems noted. 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 1. Little interest or pleasure in doing things: not at all 2. Feeling down, depressed, or hopeless: not at all 3. Trouble falling or staying asleep, or sleeping too much: several days 4. Feeling tired or having little energy: more than half the days 5. Poor appetite or overeating: not at all 6. Feeling bad about yourself - or that you are a failure or have let yourself or your family down: not at all 7. Trouble concentrating on things, such as reading the newspaper or watching television: not at all 8. Moving or speaking so slowly that other people could have noticed. Or the opposite - being so fidgety or restless that you have been moving around a lot more than usual: not at all 9. Thoughts that you would be better off or of hurting yourself in some way: not at all Total score: 3 Depression Screening Interpretation: Positive Depression Screening Follow-up: Existing condition 32832 - PHQ-9 Billing: Yes Source: Developed by Drs. Ehsan Perez, Joselyn Herrera, Stas Argueta and colleagues, with an educational dinorah from [employer]. Thrive Questionnaire Date Thrive assessed: 04/18/23 I am a: Patient What is your living situation today?: I have a steady place to live Within the past 12 months, did the food you bought not last and you didn't have the money to get more?: Never true Within the past 12 months, did you worry whether your food would run out before you got money to buy more?: Never true Do you have trouble paying for medicines?: No Do you have trouble getting transportation to medical appointments?: No Do you have trouble paying your heating and electricity bill?: No Do you have trouble taking care of your child, family member or friend?: No Do you have trouble with day-to-day activities such as bathing, preparing meals, shopping, managing finances, etc.?: No Are you currently unemployed and looking for a job?: No Are you interested in more education?: No Please select the resources that you would like help with: None Currently or been in a relationship where the following occur: no concerns reported AUDIT C Alcohol Use Questionnaire (AUDIT-C) 1. How often do you have a drink containing alcohol?: Never 3. How often do you have six or more drinks on one occasion?: Never Total Score: 0 Score Reviewed/Action Taken: Yes OLAMIDE-7 AMB Questionnaire OLAMIDE-7 Date OLAMIDE - 7 assessed: 04/18/23 Feeling nervous, anxious, or on edge: 1 = Several days Not being able to stop or control worryin = Not at all Worrying too much about different things: 0 = Not at all Trouble relaxin = Several days Being so restless that it is hard to sit still: 0 = Not at all Becoming easily annoyed or irritable: 0 = Not at all Feeling afraid as if something awful might happen: 0 = Not at all Total OLAMIDE-7 score (0-4 normal; 5-9 mild; 10-14 moderate; 15-21 severe): 2 Source: Developed by Drs. Ehsan Perez, Joselyn Herrera, Stas Argueta and colleagues, with an educational dinorah from [employer]. Review of Systems Const Denies chills, Reports fatigue (chronic), Denies fever(s), Denies headache(s) and Reports poor appetite ENT Denies dysphagia, Reports dizziness (frequent/recurrent), Denies otalgia, Denies headache(s), Reports hearing loss (in the right ear), Denies odynophagia and Denies sore throat Card Denies chest pain, Denies palpitations and Reports dyspnea on exertion Resp Denies chest congestion, Denies cough, Reports dyspnea on exertion and Denies wheezing GI Denies abdominal pain, Reports bloating, Denies constipation, Denies dysphagia, Denies heartburn, Denies diarrhea, Reports nausea (occasional), Denies odynophagia and Denies vomiting Denies dysuria, Denies nocturia and Denies urinary frequency Musc Denies arthralgias Neuro Reports dizziness (frequent/recurrent) and Denies headache(s) Endo Reports fatigue (chronic) and Denies palpitations Aller/Immun Denies wheezing Physical exam (Primary Care) Vital Signs: Last Vital Signs Pulse 96 04/18/23 09:31 BP 110/70 04/18/23 09:31 Pulse Ox 97 04/18/23 09:31 Oxygen Delivery Method Room Air 04/18/23 09:31 BMI result Body Mass Index 26.9 Tobacco/Smoking Status: Tobacco use Status Tobacco use date assessed 04/18/23 04/18/23 09:35 Patient Tobacco Use Status Former Tobacco user 04/18/23 09:35 Tobacco use type Cigarette 04/18/23 09:35 e-Cigarette/Vaping Use Never Used 04/18/23 09:35 PHQ-9: PHQ-9 Score PHQ-9: Total score 3 04/18/23 09:37 Depression Screening Interpretation: Positive Depression Screening Follow-up: Existing condition Thrive Assessment: Date of Thrive Assessment Date Thrive assessed 04/18/23 04/18/23 09:35 Currently or been in a relationship where the following occur: no concerns reported Const Other: appears pale General: no acute distress and alert HENMT Ears: TM's normal bilaterally and EAC's normal Throat: Yes posterior oropharynx normal and Yes tonsils normal (no TP congestion) Neck Neck: Yes no lymphadenopathy and Yes supple Resp Auscultation: clear to auscultation bilaterally, no rales and no wheezes Cardio Rate: regular rate Rhythm: regular rhythm Heart sounds: Murmur heart sound present diastolic early, soft, II/ and at the left sternal border GI Palpation (GI): Soft to palpation and nontender Auscultation: normal bowel sounds Skin General skin exam: no rashes or lesions noted Extrem General: Yes no clubbing, cyanosis or edema Results Reviewed Results Reviewed: Laboratory Tests 04/11/23 04/11/23 04/11/23 11:07 11:07 11:07 WBC 10.8 Hgb 8.6 L Hct 28.0 L Plt Count 82 L Sodium 139 Potassium 4.0 Creatinine 1.13 Estimated GFR > 60 Fasting Glucose 175 H Hemoglobin A1c % 6.6 Calcium 8.8 AST 23 ALT 20 Triglycerides 274 Cholesterol 161 LDL Cholesterol, Calc 69 HDL Cholesterol 38 25-OH Vitamin D Total 36.0 TSH 1.54 Ur Specific [place] Urine Protein Urine Glucose (UA) Urine Blood 04/11/23 11:21 WBC Hgb Hct Plt Count Sodium Potassium Creatinine Estimated GFR Fasting Glucose Hemoglobin A1c % Calcium AST ALT Triglycerides Cholesterol LDL Cholesterol, Calc HDL Cholesterol 25-OH Vitamin D Total TSH Ur Specific [place] 1.025 Urine Protein 30 (1+) H Urine Glucose (UA) Negative Urine Blood Negative Assessment and Plan Assessment & Plan (1) Pure hypercholesterolemia: Code(s): E78.00 - Pure hypercholesterolemia, unspecified Plan: Results of his labs done last week reviewed and discussed with patient Reinforced low cholesterol diet Continue Atorvastatin 80 gm QD Will recheck labs in 4 months for follow up (2) Diabetes mellitus: Code(s): E11.9 - Type 2 diabetes mellitus without complications Qualifiers: Diabetes mellitus type: type 2 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: without senior care use Diabetes mellitus complication status: without complication Qualified Code(s): E11.9 - Type 2 diabetes mellitus without complications Plan: HgbA1c was at 6.6% on his labs done last week (in-office HgbA1c was at 5.0% a few months ago) - goal is at least < 7.0% Reinforced diabetic diet Continue Glipizide ER 2.5 mg QD for now (Rx refilled) (3) Acquired hypothyroidism: Code(s): E03.9 - Hypothyroidism, unspecified Plan: Continue Levothyroxine 88 mcg QD Will recheck TFTs in 4 months for follow up (4) Ascending aorta dilatation: Code(s): I77.810 - Thoracic aortic ectasia Plan: Echocardiogram last done on 02/18/2022 revealed (+) mildly dilated ascending aorta at 3.8 cm that is UNCHANGED from last year - will require continued monitoring Follow up with cardiology as scheduled (5) Primary osteoarthritis of right knee: Code(s): M17.11 - Unilateral primary osteoarthritis, right knee Plan: S/P total right knee arthroplasty with Dr. Fink on 12/14/2021 States that his surgery went well and that his knee has been feeling a lot better over the past year since his knee replacement surgery Follow up with orthopedics as scheduled or as needed (6) GERD without esophagitis: Code(s): K21.9 - Gastro-esophageal reflux disease without esophagitis Plan: Dietary restrictions reinforced Continue Omeprazole 20 mg QD PRN (7) Prostate cancer metastatic to bone: Code(s): C61 - Malignant neoplasm of prostate; C79.51 - Secondary malignant neoplasm of bone Plan: Completed 6 cycles of chemotherapy with Docetaxel and Carboplatin q 3 weeks in July 2021 Was on Xgeva 120 mg SQ Q 4 weeks and Eligard 45 mg SQ every 6 months but was started on Kirsten 177 and continued on this every 8 weeks until completion of Tx Follow up with oncology and urology for continuing management (8) Dyspnea: Code(s): R06.00 - Dyspnea, unspecified Qualifiers: Dyspnea type: unspecified Qualified Code(s): R06.00 - Dyspnea, unspecified Plan: Is most likely related to his anemia Chest x-rays done back in November 2022 came out with no acute disease (9) Dizziness: Code(s): R42 - Dizziness and giddiness Plan: Frequently postural; may be likely due to his anemia although a brain MRI was ordered by oncology to r/o brain mets He recently had a whole body PET scan done at [facility] instead but we do not have the results of these at this time Patient has a follow up appt with oncology later today to discuss his findings (10) Overweight (BMI 25.0-29.9): Code(s): E66.3 - Overweight Plan: Reinforced diet; exercise and weight loss are unrealistic given patient's current comorbidities Patient's activity level has been limited for a while now due to his multiple comorbidities, including his knee OA Plan Follow up in 4 months Orders: Orders Complete Blood Count Auto Diff 4 Months D64.9 - Anemia, unspecified Comprehensive Gardner. Panel Fast 4 Months E78.00 - Pure hypercholesterolemia, unspecified Lipid Panel 4 Months E78.00 - Pure hypercholesterolemia, unspecified Thyroid Stimulating Hormone 4 Months E03.9 - Hypothyroidism, unspecified Free T4 (Free Thyroxine) 4 Months E03.9 - Hypothyroidism, unspecified UA CC w/rflx Micro + Cult 4 Months R30.0 - Dysuria Vitamin D 25-OH Total 4 Months E55.9 - Vitamin D deficiency, unspecified Medications: Refilled glipizide ER 2.5 mg PO BEDTIME 90 days 90 tabs 3RF E11.9 - Type 2 diabetes mellitus without complications Coding Level of Care Code Est Pt Level 4 (87743) Diagnoses Pure hypercholesterolemia E78.00 Diabetes mellitus E11.9 Diabetes mellitus type: type 2 Diabetes mellitus senior care insulin use: without 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
== END 2023-04-18 10:07 | disposition home or self-care (01) ==
PROVIDERS: Visit Provider Internal Medicine
DX: E11.9 Type 2 diabetes mellitus without complications (principal); E03.9 Hypothyroidism, unspecified; I77.810 Thoracic aortic ectasia; K21.9 Gastro-esophageal reflux disease without esophagitis; C61 Malignant neoplasm of prostate; E78.00 Pure hypercholesterolemia, unspecified; M17.11 Unilateral primary osteoarthritis, right knee; C79.51 Secondary malignant neoplasm of bone; R06.00 Dyspnea, unspecified; R42 Dizziness and giddiness; E66.3 Overweight
CPT/HCPCS: 99214

== ENCOUNTER 2023-05-23 08:31 | Outpatient (AMB) | payer MEDICARE, BC, SELFPAY ==
--- NOTE | 2023-05-23 08:35 | MHC.OFFVIS ---
Intake Vital Signs 05/23/23 08:36 Height 5 ft 9 in Weight 179 lb 14.355 oz BMI 26.6 BP 114/60 Blood Pressure Location Rt brachial Position Sitting Pulse 99 Intake Visit Reasons: follow up Intake Note: follow up Nitroglycerin Separator Operator Required: No Accompanied by: Self / Same As Patient Allergies No Known Allergies Allergy (Verified 05/23/23 08:38) Medication List - Last Reconciled 05/23/23 by Raul Aguayo MD atorvastatin 80 mg PO BEDTIME 90 days denosumab (Xgeva) 120 mg subcut Q4W dexamethasone 2 mg PO BID glipizide ER 2.5 mg PO BEDTIME 90 days leuprolide acetate (6 month) (Eligard) 45 mg subcut [id number] levothyroxine 88 mcg PO DAILY 90 days nut.tx.gluc intol,lf,soy-fiber 0.06-1.1 gram-kcal/mL (Boost Glucose Control) 1 ea PO BID vit C,Y-Qh-renft-lutein-zeaxan 250-90-40-1 mg (PreserVision AREDS-2) 1 tab PO QAM HPI HPI Comments History of Present Illness Details Nixon returns for follow-up. He has moderate aortic regurgitation on the echocardiogram and slight ascending aortic dilatation. His recent concern is that he is getting dizzy/unsteady. However, he is also having brain Mets based on imaging. Overall, that might be the reason than something cardiac. No other cardiac symptoms. 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 Mother No problems noted. Social History Household Members: Significant Other Housing: House Are you a primary personal care worker to a significant other at home: Yes (, bedridden ,Alzheimer's, on Hospice) Do you presently have visiting nurse or other home services: Yes (Hospice nurse and [employer] 9-1) Alcohol intake: current Alcohol intake frequency: holidays/special occasions only Patient Tobacco Use Status: Former Tobacco user Quit Date: Tobacco use type: Cigarette e-Cigarette/Vaping Use: Never Used Second Hand Smoke Exposure: Yes Advance Directives Date on File: 05/10/22 service: No Current occupational status: retired Cognitive needs: No Hearing needs: No Vision needs: Yes Review of Systems Const Denies weakness ENT Denies dizziness Card Denies chest pain, Denies chest pain with activity, Denies syncope, Denies rapid heart rate, Denies pedal edema, Denies edema, Denies leg edema, Denies lightheadedness, Denies palpitations, Denies dyspnea, Denies dyspnea on exertion and Denies orthopnea Resp Denies cough, Denies dyspnea and Denies dyspnea on exertion GI Denies hematochezia and Denies change in stool character Musc Denies abnormal gait, Denies muscle cramps, Denies muscle weakness, Denies numbness, Denies radiating pain into limb and Denies tingling Neuro Denies abnormal gait, Denies dizziness, Denies syncope, Denies numbness, Denies tingling and Denies weakness Endo Denies palpitations Physical Exam Vital Signs: Last Vital Signs Pulse 99 05/23/23 08:36 BP 114/60 05/23/23 08:36 BMI result Body Mass Index 26.6 Const General: comfortable and no acute distress Orientation/consciousness: patient oriented x3 HEENT Other: Unremarkable Head: Yes normal to inspection Neck Neck: Yes normal visual inspection Chest Chest palpation & inspection: normal inspection of the chest Resp Auscultation: clear to auscultation bilaterally Cardio Palpation: normal PMI Heart sounds: S1 normal heart sound present, S2 normal heart sound present, no gallops, no murmurs and no rubs GI Palpation (GI): Soft to palpation Back/Spine/Pelvis Other: unremarkable Skin General skin exam: no rashes or lesions noted Neuro General: patient oriented x3 Extrem General: Yes normal to inspection Psych Mental Status: mental status grossly normal Assessment & Plan Assessment & Plan (1) Non-rheumatic aortic regurgitation: Code(s): I35.1 - Nonrheumatic aortic (valve) insufficiency (2) Ascending aorta dilatation: Code(s): I77.810 - Thoracic aortic ectasia (3) Dizziness: Code(s): R42 - Dizziness and giddiness (4) Metastasis to brain: Code(s): C79.31 - Secondary malignant neoplasm of brain Plan In the last echocardiogram, his LVEF was 55-60% with mild diastolic dysfunction, moderate aortic regurgitation and ascending aorta measured 3.8cm, which is top normal. Myocardial perfusion imaging study had shown normal perfusion, without any evidence of ischemia or infarction. Prior study from 2016, 2011 were also unremarkable. Brain MRI from 04/24/2023 at [facility] shows multiple enhancing cerebellar lesions consistent with metastatic disease. Overall, no specific management for the aortic regurgitation at this time. Not hemodynamically significant. With regard to the question of dizziness, much more likely to be from the brain metastatic his in the cerebellum than cardiac reasons. He seems to be already getting radiation for that. Otherwise, no specific cardiac changes at this time. He has an appointment in a few months and can keep that. Medications: Discontinued ondansetron 4 mg PO Q6H PRN 60 tabs 3RF Nausea Coding Level of Care Code Est Pt Level 4 (62072) Diagnoses Non-rheumatic aortic regurgitation I35.1 Ascending aorta dilatation I77.810 Dizziness R42 Metastasis to brain C79.31
[2023-05-23 08:36] VITALS: BP 114/60; PULSE 99; BMI 26.6
== END 2023-05-23 09:49 | disposition home or self-care (01) ==
PROVIDERS: PCP Internal Medicine; Visit Provider Internal Medicine
DX: I35.1 Nonrheumatic aortic (valve) insufficiency (principal); I77.810 Thoracic aortic ectasia; R42 Dizziness and giddiness; C79.31 Secondary malignant neoplasm of brain
CPT/HCPCS: 99214

== ENCOUNTER → 2023-05-23 08:31 | Outpatient (BNVA) | payer MEDICARE, BC, SELFPAY | PROVIDERS: PCP Internal Medicine; Visit Provider Internal Medicine | DX: I35.1 Nonrheumatic aortic (valve) insufficiency (principal); I77.810 Thoracic aortic ectasia; R42 Dizziness and giddiness; C79.31 Secondary malignant neoplasm of brain | CPT/HCPCS: 99212 ==

== ENCOUNTER 2023-07-25 14:57 | Outpatient (REF) | payer MEDICARE, BC, SELFPAY ==
[2023-07-25 15:08] LABS: Hematocrit 31.8 % (42.0-52.0); Hemoglobin 10.2 g/dl (14.0-18.0); Mean Corpuscular HGB Conc 32.1 g/dl (31.0-36.0); Mean Corpuscular Hemoglobin 33.4 pg (27.0-33.0); Mean Corpuscular Volume 104.3 fL (80.0-98.0); Mean Platelet Volume 9.6 fL (9.4-12.4); Platelet Count 133 X10*3/uL (160-400); Red Blood Count 3.05 X10*6/uL (4.60-5.80); Red Cell Distribution Width 17.6 % (11.0-16.0); White Blood Count 4.5 X10*3/uL (4.8-10.8)
[2023-07-25 15:09] LABS: NRBC Pct Auto 10.6 /100WBC (0.0-0.2)
[2023-07-25 15:52] LABS: Atypical Lymph Absolute Manual 0.1 x10*3/uL; Atypical Lymphs Percent Manual 2 % (0-6); Band Neutrophils Percent 8 % (3-5); Basophils Percent Manual 1 % (0-2); Eosinophils Percent Manual 1 % (0-4); Lymphocytes Absolute Manual 0.9 X10*3/uL (1.2-4.9); Lymphocytes Percent Manual 20 % (20-40); Metamyelocytes Absolute 0.2 X10*3/uL; Metamyelocytes Percent 4 %; Monocytes Absolute Manual 0.1 X10*3/uL (0.1-1.2); Monocytes Percent Manual 3 % (2-11); Neutrophils Absolute Manual 3.1 X10*3/uL (2.0-8.3); Neutrophils Percent Manual 61 % (45-73); Nucleated Red Blood Cells 7 /100WBC (0-0)
[2023-07-25 15:53] LABS: RBC Morphology NOTED
[2023-07-25 15:54] LABS: Ovalocytes 1+ (5-14) /OIF; Platelet Estimate NORMAL (NORMAL); Platelet Morphology Comment NORMAL; Polychromasia 1+ (0-2) /OIF; Tear Drop Cells 1+ (0-2) /OIF
[2023-07-25 16:07] LABS: Alanine Aminotransferase 42 U/L (0-40); Albumin Level 4.2 g/dL (3.5-5.0); Alkaline Phosphatase 326 U/L (39-117); Anion Gap 19 (12-20); Aspartate Amino Transferase 51 U/L (5-37); Bilirubin Total 0.7 mg/dL (0.0-1.0); Blood Urea Nitrogen 12 mg/dL (9-16); Calcium 8.3 mg/dL (8.4-10.2); Carbon Dioxide 20 mmol/L (22-29); Chloride 104 mmol/L (96-108); Estimated Glomerular Filt Rate > 60; Glucose Random 211 mg/dL (60-115); Potassium 4.3 mmol/L (3.3-5.1); Sodium 139 mmol/L (135-145); Total Protein 6.7 g/dL (6.5-8.0)
== END 2023-07-25 14:58 | disposition home or self-care (01) ==
LOC: HO.HVNA 14:57
PROVIDERS: Visit Provider Internal Medicine
DX: C61 Malignant neoplasm of prostate (principal)
CPT/HCPCS: 36415; 80053; 85007; 85027

== ENCOUNTER 2023-08-22 09:40 | Outpatient (AMB) | payer MEDICARE, BC, SELFPAY ==
[2023-08-22 09:42] VITALS: BP 110/70; BMI 25.1
--- NOTE | 2023-08-22 09:42 | MHC.PC.OV ---
Vital Signs 08/22/23 09:42 Height 5 ft 9 in Weight 170 lb BMI 25.1 BP 110/70 Blood Pressure Location Lt brachial Position Sitting Pulse Source Pulse Oximeter Oxygen Delivery Method Room Air Intake Visit Reasons: 4mth f/u Parlor Chaperone Required: No Accompanied by: Self / Same As Patient Allergies No Known Allergies Allergy (Verified 08/22/23 10:32) Medication List - Last Reconciled 08/22/23 by Héctor Perla MD atorvastatin 80 mg PO BEDTIME 90 days cholecalciferol (vitamin D3) 50 mcg PO DAILY denosumab (Xgeva) 120 mg subcut Q4W glipizide ER 2.5 mg PO BEDTIME 90 days leuprolide acetate (6 month) (Eligard) 45 mg subcut [id number] levothyroxine 88 mcg PO DAILY 90 days meclizine (Dramamine (meclizine)) 25 mg PO BID PRN nut.tx.gluc intol,lf,soy-fiber 0.06-1.1 gram-kcal/mL (Boost Glucose Control) 1 ea PO BID omeprazole 20 mg PO DAILY ondansetron 8 mg PO Q8H PRN vit C,R-Un-xakzi-lutein-zeaxan 250-90-40-1 mg (PreserVision AREDS-2) 1 tab PO QAM Tobacco use date assessed: 08/22/23 Fall risk assessment: 2 + Falls in past year Last assessed Fall Risk: 08/22/23 Dental Screening Dental Screen Date: 08/22/23 Did you have a dental visit in the last 12 months?: Yes Did you have a dental problem in the last 6 months where you did not have access to dental care?: No Was dental information given to patient?: Patient has dentist [facility] Medical History Acquired hypothyroidism Ascending aorta dilatation COVID-19 vaccine series completed Diabetes mellitus Family history of anesthesia complication GERD without esophagitis History of chemotherapy Legionella pneumonia Non-rheumatic aortic regurgitation Overweight (BMI 25.0-29.9) Port-A-Cath in place Primary osteoarthritis of right knee 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 Mother No problems noted. Household Members: Significant Other Housing: House Are you a primary healthcare consulting manager to a significant other at home: Yes (, bedridden ,Alzheimer's, on Hospice) Do you presently have visiting nurse or other home services: Yes (Hospice nurse and [employer] 9-1) Alcohol intake: current Alcohol intake frequency: holidays/special occasions only Patient Tobacco Use Status: Former Tobacco user Quit Date: Tobacco use type: Cigarette e-Cigarette/Vaping Use: Never Used Second Hand Smoke Exposure: Yes Advance Directives Date on File: 05/10/22 service: No Current occupational status: retired Cognitive needs: No Hearing needs: No Vision needs: Yes Questionnaire PHQ-9 Over the last 2 weeks, how often have you been bothered by any of the following problems? 1. Little interest or pleasure in doing things: not at all 2. Feeling down, depressed, or hopeless: not at all 3. Trouble falling or staying asleep, or sleeping too much: several days 4. Feeling tired or having little energy: more than half the days 5. Poor appetite or overeating: not at all 6. Feeling bad about yourself - or that you are a failure or have let yourself or your family down: not at all 7. Trouble concentrating on things, such as reading the newspaper or watching television: not at all 8. Moving or speaking so slowly that other people could have noticed. Or the opposite - being so fidgety or restless that you have been moving around a lot more than usual: not at all 9. Thoughts that you would be better off or of hurting yourself in some way: not at all Total score: 3 Depression Screening Interpretation: Positive Depression Screening Follow-up: Existing condition Depression Screening Done: Yes 83408 - PHQ-9 Billing: Yes Source: Developed by Drs. Ehsan L. Chris, Stas Gunderson and colleagues, with an educational dinorah from [employer]. Thrive Questionnaire Date Thrive assessed: 08/22/23 I am a: Patient What is your living situation today?: I have a steady place to live Within the past 12 months, did the food you bought not last and you didn't have the money to get more?: Never true Within the past 12 months, did you worry whether your food would run out before you got money to buy more?: Never true Do you have trouble paying for medicines?: No Do you have trouble getting transportation to medical appointments?: No Do you have trouble paying your heating and electricity bill?: No Do you have trouble taking care of your child, family member or friend?: No Do you have trouble with day-to-day activities such as bathing, preparing meals, shopping, managing finances, etc.?: No Are you currently unemployed and looking for a job?: No Are you interested in more education?: No Please select the resources that you would like help with: None Currently or been in a relationship where the following occur: no concerns reported AUDIT C Alcohol Use Questionnaire (AUDIT-C) 1. How often do you have a drink containing alcohol?: Never 3. How often do you have six or more drinks on one occasion?: Never Total Score: 0 Score Reviewed/Action Taken: Yes OLAMIDE-7 AMB Questionnaire OLAMIDE-7 Date OLAMIDE - 7 assessed: 08/22/23 Feeling nervous, anxious, or on edge: 1 = Several days Not being able to stop or control worryin = Not at all Worrying too much about different things: 0 = Not at all Trouble relaxin = Several days Being so restless that it is hard to sit still: 0 = Not at all Becoming easily annoyed or irritable: 0 = Not at all Feeling afraid as if something awful might happen: 0 = Not at all Total OLAMIDE-7 score (0-4 normal; 5-9 mild; 10-14 moderate; 15-21 severe): 2 Source: Developed by Drs. Ehsan Perez, Stas Gunderson and colleagues, with an educational dinorah from [employer]. Physical exam (Primary Care) Vital Signs: Last Vital Signs BP 110/70 08/22/23 09:42 Oxygen Delivery Method Room Air 08/22/23 09:42 BMI result Body Mass Index 25.1 Tobacco/Smoking Status: Tobacco use Status Tobacco use date assessed 08/22/23 08/22/23 09:53 Patient Tobacco Use Status Former Tobacco user 08/22/23 09:53 Tobacco use type Cigarette 08/22/23 09:53 e-Cigarette/Vaping Use Never Used 08/22/23 09:53 PHQ-9: PHQ-9 Score PHQ-9: Total score 3 08/22/23 10:17 Depression Screening Interpretation: Positive Depression Screening Follow-up: Existing condition Thrive Assessment: Date of Thrive Assessment Date Thrive assessed 08/22/23 08/22/23 09:53 Currently or been in a relationship where the following occur: no concerns reported Results AMB Hemoglobin A1c AMB Hemoglobin A1c 8.8 % Last Edit by Tre Rosa on 08/22/23 10:18 Results Reviewed Results Reviewed: Laboratory Last Values Hgb A1c (Clinic) 8.8 % (4.0-6.0) H 08/22/23 10:06 Laboratory Tests 04/11/23 07/25/23 07/25/23 11:07 13:30 13:30 WBC 4.5 L Hgb 10.2 L Hct 31.8 L Plt Count 133 L Sodium 139 Potassium 4.3 Creatinine 1.09 Estimated GFR > 60 Random Glucose 211 H Hgb A1c (Clinic) Hemoglobin A1c % 6.6 Calcium 8.3 L D AST 51 H ALT 42 H Alkaline Phosphatase 326 H 08/22/23 10:06 WBC Hgb Hct Plt Count Sodium Potassium Creatinine Estimated GFR Random Glucose Hgb A1c (Clinic) 8.8 H Hemoglobin A1c % Calcium AST ALT Alkaline Phosphatase Assessment and Plan Assessment & Plan (1) Pure hypercholesterolemia: Code(s): E78.00 - Pure hypercholesterolemia, unspecified Plan: Results of his labs done last week reviewed and discussed with patient Reinforced low cholesterol diet Continue Atorvastatin 80 gm QD Will recheck labs in 4 months for follow up (2) Diabetes mellitus: Code(s): E11.9 - Type 2 diabetes mellitus without complications Qualifiers: Diabetes mellitus type: type 2 Diabetes mellitus intermediate designer insulin use: without intermediate designer use Diabetes mellitus complication status: without complication Qualified Code(s): E11.9 - Type 2 diabetes mellitus without complications Plan: HgbA1c was at 6.6% on his labs done last week (in-office HgbA1c was at 5.0% a few months ago) - goal is at least < 7.0% Reinforced diabetic diet Continue Glipizide ER 2.5 mg QD for now (Rx refilled) (3) Acquired hypothyroidism: Code(s): E03.9 - Hypothyroidism, unspecified Plan: Continue Levothyroxine 88 mcg QD Will recheck TFTs in 4 months for follow up (4) Ascending aorta dilatation: Code(s): I77.810 - Thoracic aortic ectasia Plan: Echocardiogram last done on 02/18/2022 revealed (+) mildly dilated ascending aorta at 3.8 cm that is UNCHANGED from last year - will require continued monitoring Follow up with cardiology as scheduled (5) Primary osteoarthritis of right knee: Code(s): M17.11 - Unilateral primary osteoarthritis, right knee Plan: S/P total right knee arthroplasty with Dr. Fink on 12/14/2021 States that his surgery went well and that his knee has been feeling a lot better over the past year since his knee replacement surgery Follow up with orthopedics as scheduled or as needed (6) GERD without esophagitis: Code(s): K21.9 - Gastro-esophageal reflux disease without esophagitis Plan: Dietary restrictions reinforced Continue Omeprazole 20 mg QD PRN (7) Prostate cancer metastatic to bone: Code(s): C61 - Malignant neoplasm of prostate; C79.51 - Secondary malignant neoplasm of bone Plan: Completed 6 cycles of chemotherapy with Docetaxel and Carboplatin q 3 weeks in July 2021 Was on Xgeva 120 mg SQ Q 4 weeks and Eligard 45 mg SQ every 6 months but was started on Kirsten 177 and continued on this every 8 weeks until completion of Tx Follow up with oncology and urology for continuing management (8) Dyspnea: Code(s): R06.00 - Dyspnea, unspecified Qualifiers: Dyspnea type: unspecified Qualified Code(s): R06.00 - Dyspnea, unspecified Plan: Is most likely related to his anemia Chest x-rays done back in November 2022 came out with no acute disease (9) Dizziness: Code(s): R42 - Dizziness and giddiness Plan: Frequently postural; may be likely due to his anemia although a brain MRI was ordered by oncology to r/o brain mets He recently had a whole body PET scan done at [facility] instead but we do not have the results of these at this time Patient has a follow up appt with oncology later today to discuss his findings (10) Overweight (BMI 25.0-29.9): Code(s): E66.3 - Overweight Plan: Reinforced diet; exercise and weight loss are unrealistic given patient's current comorbidities Patient's activity level has been limited for a while now due to his multiple comorbidities, including his knee OA Plan Follow up in 4 months Orders: Orders AMB Hemoglobin A1c Today Z13.9 - Encounter for screening, unspecified Complete Blood Count Auto Diff 4 Months D64.9 - Anemia, unspecified Lipid Panel 4 Months E78.00 - Pure hypercholesterolemia, unspecified Free T4 (Free Thyroxine) 4 Months E03.9 - Hypothyroidism, unspecified Vitamin D 25-OH Total 4 Months E55.9 - Vitamin D deficiency, unspecified UA CC w/rflx Micro + Cult 4 Months R30.0 - Dysuria Comprehensive [place]. Panel Fast 4 Months E78.00 - Pure hypercholesterolemia, unspecified Hemoglobin A1c 4 Months E11.9 - Type 2 diabetes mellitus without complications Thyroid Stimulating Hormone 4 Months E03.9 - Hypothyroidism, unspecified Microalbumin, Random (w Creat) 4 Months E11.9 - Type 2 diabetes mellitus without complications Medications: New ondansetron 8 mg PO Q8H PRN 30 tabs 2RF nausea and vomiting Coding Diagnoses Pure hypercholesterolemia E78.00 Type 2 diabetes mellitus without complication, without long-term current use of insulin E11.9 Diabetes mellitus type: type 2 Diabetes mellitus intermediate designer insulin use: without fdc use Diabetes mellitus complication status: without complication Acquired hypothyroidism E03.9 Ascending aorta dilatation I77.810 Primary osteoarthritis of right knee M17.11 GERD without esophagitis K21.9 Prostate cancer metastatic to bone C61; C79.51 Dyspnea, unspecified type R06.00 Dyspnea type: unspecified Dizziness R42 Overweight (BMI 25.0-29.9) E66.3
== END 2023-08-22 10:55 | disposition home or self-care (01) ==
PROVIDERS: PCP Internal Medicine; Visit Provider Internal Medicine
DX: E11.9 Type 2 diabetes mellitus without complications (principal)
CPT/HCPCS: 83036

== ENCOUNTER 2023-09-09 19:23 | Inpatient (IN) | payer MEDICARE, BC, SELFPAY ==
--- NOTE | ~2023-09-09 | XR_ITS ---
EXAMINATION: XR CHEST CLINICAL INFORMATION: Possible pneumonia. COVID positive. COMPARISON: Chest done on 11/24/2022. TECHNIQUE: Frontal view of the chest was obtained. FINDINGS: There is a right-sided Port-A-Cath present, appear unchanged. No definite focal airspace disease, unchanged. Diffuse osteosclerosis appears similar, presumed diffuse metastatic disease from prostate cancer, apparently clinically known. The heart size is within normal limits. No evidence of any pleural effusion or pneumothorax. XR/XR chest 1V IMPRESSION: No radiographic evidence of pneumonia. Diffuse osteosclerosis, presumably represent clinically known diffuse osseous metastatic disease from prostate cancer, unchanged.
--- NOTE | 2023-09-09 19:33 | ECG_ITS ---
Test Reason : WEAKNESS Blood Pressure : / mmHG Vent. Rate : 115 BPM Atrial Rate : 115 BPM P-R Int : 126 ms QRS Dur : 080 ms QT Int : 324 ms P-R-T Axes : -28 -23 009 degrees QTc Int : 448 ms Sinus tachycardia with Premature atrial complexes Inferior infarct , age undetermined Abnormal ECG When compared with ECG of 01-AUG-2018 09:28, Premature atrial complexes are now Present Vent. rate has increased BY 48 BPM QRS voltage has decreased Inferior infarct is now Present ST now depressed in Anterior leads Nonspecific T wave abnormality now evident in Anterior leads Referred By: Cat Ponce Electronically Signed By:Dwayne Evans
[2023-09-09 19:36] VITALS: BP 113/59; BP 120/72; PULSE 112; PULSE 116; RESP 15; TEMP 37.6; O2SAT 90; O2SAT 95; BMI 24.2
--- NOTE | 2023-09-09 19:46 | ED.GENADULT ---
HPI - General Adult General Chief complaint: Weakness Stated complaint: DIZZY,WEAK, COVID + Time Seen by Provider: 09/09/23 19:31 Source: patient and EMS Mode of arrival: EMS Limitations: no limitations History of Present Illness HPI narrative: Patient comes to the emergency room complaining of generalized weakness and COVID positive. Patient states that he has been feeling nauseous, vomiting since yesterday. Patient took a home test for COVID which was positive. Patient states that he has today squilgeer of his who has Alzheimer's dementia at home. Patient's at this time is safe at home with their son. Patient denies any chest pain or shortness of breath. Patient not oxygen dependent. Patient on home hospice for prostate cancer with metastasis. Patient states that yesterday he was feeling very weak, his legs gave out and patient fell. Patient states that he did not hit his head or loss consciousness. Patient denies being on blood thinners. According to EMS, patient's oxygen saturation was 84% on room air and patient was placed on 4 L of oxygen. On arrival, on room air, patient was oxygenating 95% on room air Related Data Home Medications Medication Instructions Recorded Confirmed denosumab 120 mg/1.7 mL (70 mg/mL) 120 mg subcut Q4W 07/28/20 08/22/23 subcutaneous solution (Xgeva) vit C 250 mg-vit E 90 mg-zinc 40 1 tab PO QAM 12/08/21 08/22/23 mg-copper 1 [id number] capsule (PreserVision AREDS-2) leuprolide acetate (6 month) 45 mg 45 mg subcut [id number] 03/31/22 08/22/23 (6 month) subcutaneous syringe ([facility]) cholecalciferol (vitamin D3) 50 50 mcg PO DAILY 08/22/23 08/22/23 mcg (2,000 unit) capsule omeprazole 20 mg capsule,delayed 20 mg PO DAILY 08/22/23 08/22/23 release Previous Rx's Medication Instructions Recorded nutrition tx glu 1 ea PO BID #14,220 mL 03/04/22 intol,lac-free,soy-fiber 0.06 gram-1.1 kcal/mL liquid (Boost Glucose Control) atorvastatin 80 mg tablet 80 mg PO BEDTIME 90 days #90 tabs 01/04/23 levothyroxine 88 mcg tablet 88 mcg PO DAILY 90 days #90 tabs 03/22/23 glipizide 2.5 mg tablet, extended 2.5 mg PO BEDTIME 90 days #90 tabs 04/18/23 release 24 hr ondansetron 8 mg disintegrating 8 mg PO Q8H PRN nausea and 08/22/23 tablet vomiting #30 tabs meclizine 25 mg tablet (Dramamine 25 mg PO BID PRN dizziness #30 tabs 08/28/23 (meclizine)) nirmatrelvir 150 mg-ritonavir 100 See Rx Instructions .Route 09/08/23 mg tablets in a dose pack .COMPLEX #1 ea (Paxlovid) Allergies Allergy/AdvReac Type Severity Reaction Status Date / Time No Known Allergies Allergy Verified 08/22/23 10:32 Review of Systems Review of Systems: Constitutional : No Weight loss, No Fever, No Chills, No Night Sweats, complaining of fatigue, weakness, and generalized malaise ENT/Mouth : No Hearing loss, No Ear Pain, No Nasal Congestion, No Sinus Pain, No Hoarseness, No sore throat, No Rhinorrhea, No Swallowing Difficulty Eyes: No Eye Pain, No Swelling, No Redness, No Foreign Body, No Discharge, No Vision Changes Cardiovascular : No Chest Pain, No SOB, No Dyspnea on Exertion, No Orthopnea, No Edema, No Palpitations Respiratory : No Cough, No Sputum, No Wheezing, No Smoke Exposure, No Dyspnea Gastrointestinal : Complaining of nausea and vomiting, No Diarrhea, No Constipation, No abdominal Pain, No Hematochezia, No Melena Genitourinary : no irregular bleeding, No Dysuria, No Urinary Frequency, No Hematuria, No Urinary Incontinence, No Urgency, No Flank Pain, No Urinary Flow Changes, No Hesitancy Musculoskeletal : No joint pain, No Myalgias, No Joint Swelling Skin : No Skin Lesions, No rash Neuro : No Weakness, No Numbness, No Paresthesias, No Loss of Consciousness, No Dizziness, No Headache Psych : No Anxiety/Panic, No Depression, No SI/HI/AH/VH, No Social Issues, Heme/Lymph: No Bruising, No Bleeding,No Lymphadenopathy Endocrine : No Polyuria, No Polydipsia, No Temperature Intolerance PMFSH Past Medical History Medical History Wears hearing aid in both ears Port-A-Cath in place Family history of anesthesia complication COVID-19 vaccine series completed History of chemotherapy GERD without esophagitis Overweight (BMI 25.0-29.9) Acquired hypothyroidism Pure hypercholesterolemia Diabetes mellitus Primary osteoarthritis of right knee Ascending aorta dilatation Non-rheumatic aortic regurgitation 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 Mother No problems noted. 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) Alcohol intake: current Alcohol intake frequency: holidays/special occasions only Patient Tobacco Use Status: Former Tobacco user Quit Date: Tobacco use type: Cigarette e-Cigarette/Vaping Use: Never Used Second Hand Smoke Exposure: Yes Advance Directives: Yes Advance Directives on File: Yes Advance Directives Date on File: 05/10/22 service: No Current occupational status: retired Cognitive needs: No Hearing needs: No Vision needs: Yes Physical Exam ED Vital Signs: Vital Signs - 24 hr 09/09/23 19:36 09/09/23 20:22 09/09/23 20:23 Temperature 99.7 F 102.4 F H Pulse Rate 116 H 120 H Respiratory Rate 15 24 H Blood Pressure 113/59 L 99/60 Pulse Oximetry 95 90 L 82 L Oxygen Delivery Method Room Air Room Air Room Air Oxygen Flow Rate 09/09/23 20:47 09/09/23 21:17 09/09/23 21:51 Temperature 102.7 F H Pulse Rate 118 H 118 H 112 H Respiratory Rate 20 22 H 22 H Blood Pressure 119/60 109/48 L 101/53 L Pulse Oximetry 95 97 97 Oxygen Delivery Method Nasal Cannula Nasal Cannula Nasal Cannula Oxygen Flow Rate 2 3 3 BMI result Body Mass Index 24.2 Const Other: Appearance: Alert. Oriented X3. No acute distress. Seems weak Eyes: Pupils equal, round and reactive to light. ENT: Pharynx normal. Neck: Normal inspection. Neck supple. No lymph nodes noted. No crepitus CVS: Normal heart rate and rhythm. Pulses normal. Normal S1 and S2 Respiratory: No respiratory distress. Breath sounds normal. No Wheezing. No rales , oxygen saturation 95% on room air Abdomen: Soft and nontender. No rigidity. No distention. Skin: Skin warm and dry. Normal skin color. Normal skin turgor. Extremities: No lower extremity edema. No Lacerations. No Rash Neuro: Oriented X 3. No motor deficit. No sensory deficit. Moving all extremities. No slurred speech. CN 2 through 12 grossly intact Psych: calm, cooperative, normal affect Course Course Course Narrative: -all of patient's labs and imaging pending -at this time, patient is on room air saturating 95% Medications Administered Generic Name Dose Route Start Last Admin Trade Name Freq PRN Reason Stop Dose Admin Azithromycin 500 mg/ Sodium 250 mls @ 125 mls/hr 09/09/23 21:16 09/09/23 22:03 Chloride IV 09/09/23 23:15 125 mls/hr ONCE ONE Administration Sodium Chloride 1,500 mls @ 999 mls/hr 09/09/23 21:16 09/09/23 21:28 Ns IVCONT 09/09/23 22:46 999 mls/hr .Q1H31M ONE Administration Discontinued Medications Generic Name Dose Route Start Last Admin Trade Name Freq PRN Reason Stop Dose Admin Acetaminophen 975 mg 09/09/23 20:32 09/09/23 20:57 Acetaminophen 325 Mg Tablet PO 09/09/23 20:33 975 mg ONCE ONE Administration Dexamethasone Sodium Phosphate 6 mg 09/09/23 20:32 09/09/23 20:57 Dexamethasone Sod Phosphate 4 Mg/Ml Vial IVPUSH 09/09/23 20:33 6 mg ONCE ONE Administration Sodium Chloride 1,000 mls @ 999 mls/hr 09/09/23 19:33 09/09/23 21:52 Ns IVCONT 09/09/23 20:33 Infused .Q1H1M ONE Infusion Ceftriaxone Sodium 1 gm/ 50 mls @ 100 mls/hr 09/09/23 21:16 09/09/23 22:02 Sodium Chloride IV 09/09/23 21:45 Infused ONCE ONE Infusion Ondansetron HCl 4 mg 09/09/23 19:46 09/09/23 20:16 Ondansetron Hcl 4 Mg/2 Ml Vial IVPUSH 09/09/23 19:47 4 mg ONCE ONE Administration Medical Decision Making Medical Decision Making [facility] Narrative: -at this time, 21;11 patient's labs becoming available, patient's hematology at baseline, chemistry at baseline. Patient's troponin 137.5, patient does not have any chest pain, likely secondary to demand ischemia. Troponin 2. Pending for 23:30. Patient also tested positive for both, influenza and COVID. -interpretation of EKG: Sinus tachycardia, heart rate 115, no ST segment depression or elevation, no T-wave inversion, QTC 448 -chest x-ray pending, has not been done yet -patient does get hypoxic with exertion, with moving around in the bed while sitting, oxygen drops to 82%. Patient will be empirically treated with antibiotics. -patient is empirically being treated with IV fluids, antibiotics. Sepsis is not suspected. -my interpretation of chest x-ray, questionable infiltrate in the left lung. Radiology report pending. Patient has already been treated empirically with fluids and antibiotics. -I discussed the patient with Dr. Toledo, patient being admitted Differential Diagnosis Differential Diagnoses: The differential diagnosis associated with the presentation includes (COVID, influenza, pneumonia, viral illness) Admission/Observation Consideration of admission/observation: Escalation of care including admission/observation considered Consult Healthcare Provider Management of the patient was discussed with: Hospitalist Lab Data [facility] Lab Attestation statement: I reviewed the patient's lab results. 09/09/23 20:33 09/09/23 20:33 Labs: Lab Results 09/09/23 09/09/23 Range/Units 20:33 20:51 WBC 3.1 L (4.8-10.8) X10*3/uL RBC 2.60 L (4.60-5.80) X10*6/uL Hgb 8.3 L (14.0-18.0) g/dl Hct 26.0 L (42.0-52.0) % MCV 100.0 H (80.0-98.0) fL MCH 31.9 (27.0-33.0) pg MCHC 31.9 (31.0-36.0) g/dl RDW 17.3 H (11.0-16.0) % Plt Count 62 L D (160-400) X10*3/uL MPV 9.5 (9.4-12.4) fL Immature Gran % (Auto) Cancelled Neut % (Auto) Cancelled Lymph % (Auto) Cancelled [place] % (Auto) Cancelled Eos % (Auto) Cancelled Baso % (Auto) Cancelled Lymph # (Auto) Cancelled [place] # (Auto) Cancelled Eos # (Auto) Cancelled Baso # (Auto) Cancelled Abs Immat Gran (auto) Cancelled Absolute Neuts (auto) Cancelled Absolute Nucleated RBC 0.360 H (0.0-0.012) X10*3/uL Nucleated RBC % (auto) 11.5 H (0.0-0.2) /100WBC Neutrophils % (Manual) 35 L (45-73) % Band Neutrophils % 30 H (3-5) % Lymphocytes % (Manual) 15 L (20-40) % Atypical Lymphs % (Man) 1 (0-6) % Monocytes % (Manual) 11 (2-11) % Eosinophils % (Manual) 1 (0-4) % Basophils % (Manual) 1 (0-2) % Metamyelocytes % 5 % Myelocytes % 1 % Abs Neuts (Manual) 2.0 (2.0-8.3) X10*3/uL Lymphocytes # (Manual) 0.5 L (1.2-4.9) X10*3/uL Monocytes # (Manual) 0.3 (0.1-1.2) X10*3/uL Metamyelocytes # 0.2 X10*3/uL Nucleated RBCs 14 H (0-0) /100WBC Platelet Estimate DECREASED (NORMAL) Large Platelets PRESENT Plt Morphology Comment NOTED RBC Morphology NOTED Polychromasia 2+ (3-5) /OIF Macrocytosis 1+ (5-14) /OIF Tear Drop Cells 3+ (>5) /OIF Ovalocytes 1+ (5-14) /OIF Schistocytes 1+ (0-2) /OIF PT 13.8 H (11.1-13.3) SEC INR 1.1 (0.9-1.1) Sodium 141 (135-145) mmol/L Potassium 4.3 (3.3-5.1) mmol/L Chloride 110 H (96-108) mmol/L Carbon Dioxide 18 L (22-29) mmol/L Anion Gap 17 (12-20) BUN 22 H (9-16) mg/dL Creatinine 1.25 (0.5-1.4) mg/dL Estim Creat Clear Calc 47.1 Estimated GFR 56 Random Glucose 229 H (60-115) mg/dL Lactic Acid 2.4 H* (0.5-2.0) mmol/L Calcium 7.9 L (8.4-10.2) mg/dL Magnesium 2.0 (1.6-2.6) mg/dL Troponin I High Sens 137.5 H* (<3.5-35.0) ng/L Urine Color Yellow Urine Appearance Turbid Urine pH 5.0 (5.0-9.0) Ur Specific [place] 1.020 (1.005-1.025) Urine Protein 100 (2+) H (Neg-Trace) mg/dL Urine Glucose (UA) Negative (Negative) mg/dL Urine Ketones Negative (Negative) mg/dL Urine Blood Negative (Negative) Urine Nitrite Negative (Negative) Ur Leukocyte Esterase Negative (Negative) Urine RBC 0-2 (0-2) /HPF Urine WBC 6-10 H (0-5) /HPF Ur Squamous Epith Cells >20 (0-2) /HPF Other Crystals Present Urine Bacteria None Seen (None Seen) Hyaline Casts >20 (0-2) /LPF COVID-19 (HEATHER) Positive A (Negative) COVID-19 Clin Com See Note Influenza Type A (LAURI) Negative (Negative) Influenza Type B (LAURI) Positive A (Negative) Influenza A & B Note See Note Independent Interpretation I performed an independent interpretation of an: EKG Critical Care Time Critical Care Time Critical Care Time: Yes Total Critical Care Time: 75 Attestation: I have personally provided critical care time. Time includes review of lab data, radiology results, discussion with consultants, and monitoring for potential decompensation. Intervention performed as documented. Discharge Plan Discharge Clinical Impression: COVID-19, Influenza A, Weakness Patient Disposition: Admitted As Inpatient Prescriptions: No Action Boost Glucose Control 0.06-1.1 gram-kcal/mL liquid 1 ea PO BID Qty: 57110 2RF atorvastatin 80 mg tablet 80 mg PO BEDTIME 90 Days Qty: 90 3RF levothyroxine 88 mcg tablet 88 mcg PO DAILY 90 Days Qty: 90 3RF Xgeva 120 mg/1.7 mL (70 mg/mL) Solution 120 mg SUBCUT Q4W Rx Instructions: per dualal q5w meclizine [Dramamine (meclizine)] 25 mg tablet 25 mg PO BID PRN (Reason: dizziness) Qty: 30 1RF Paxlovid 150-100 mg Tablets,Dose Pack See Rx Instructions .ROUTE .COMPLEX Qty: 1 0RF Rx Instructions: take ONE 150 mg tablet of nirmatrelvir with ONE 100 mg tablet of ritonavir twice daily for 5 days PreserVision AREDS-2 250-90-40-1 mg Capsule 1 tab PO QAM glipizide 2.5 mg tablet extended release 24hr 2.5 mg PO BEDTIME 90 Days Qty: 90 3RF cholecalciferol (vitamin D3) 50 mcg (2,000 unit) capsule 50 mcg PO DAILY ondansetron 8 mg tablet,disintegrating 8 mg PO Q8H PRN (Reason: nausea and vomiting) Qty: 30 2RF omeprazole 20 mg capsule,delayed release(DR/EC) 20 mg PO DAILY Eligard (6 month) 45 mg syringe 45 mg subcut [id number]
[2023-09-09] MEDS: 0.9 % Sodium Chloride 1,000 ML 999 ML IVCONT (20:08)
[2023-09-09] MEDS: ondansetron HCL 4 MG/2 ML VIAL IVPUSH (20:16)
[2023-09-09 20:22] VITALS: BP 99/60; PULSE 120; RESP 24; TEMP 39.1; O2SAT 90
[2023-09-09 20:23] VITALS: O2SAT 82
--- NOTE | 2023-09-09 20:25 | PC.NURSE ---
this rn made dr engel aware of elevated rectal temp and spo2. per dr engel not calling sepsis alert at at this time
--- NOTE | 2023-09-09 20:39 | MHC.EDTECH ---
This tech assisted with this patient, Rectal temp was taken and is 102.4 and BP is low 99/60,Anni LUCIO and are aware. Labs,Covid,FLU, and blood cultures were obtained and sent to lab. Sticker 02 probe was applied to patient and call roberson within reach
[2023-09-09 20:44] LABS: Hemoglobin 8.3 g/dl (14.0-18.0); Mean Corpuscular HGB Conc 31.9 g/dl (31.0-36.0); Mean Corpuscular Hemoglobin 31.9 pg (27.0-33.0); Mean Platelet Volume 9.5 fL (9.4-12.4); NRBC Pct Auto 11.5 /100WBC (0.0-0.2); Platelet Count 62 X10*3/uL (160-400); Red Cell Distribution Width 17.3 % (11.0-16.0); White Blood Count 3.1 X10*3/uL (4.8-10.8)
[2023-09-09 20:47] VITALS: BP 119/60; PULSE 118; RESP 20; O2SAT 95
[2023-09-09 20:49] LABS: INTERNATIONAL NORM RATIO 1.1 (0.9-1.1); Prothrombin Time 13.8 SEC (11.1-13.3)
--- NOTE | 2023-09-09 20:51 | MHC.EDTECH ---
Assisted patient with the urinal,patient had 50MLs,urine sample was obtained and sent to lab
[2023-09-09 20:53] LABS: COVID-19 Test Positive (Negative); IDNOW Serial# BCCEAD1C
[2023-09-09] MEDS: Acetaminophen 325 MG TABLET 975 MG PO (20:57)
[2023-09-09] MEDS: dexAMETHasone sod phosphate 4 MG/ML VIAL 6 MG IVPUSH (20:57)
[2023-09-09 20:59] LABS: IDNOW Serial# 08D9AD1C; Influenza A Negative (Negative); Influenza B2 Positive (Negative)
[2023-09-09 21:00] LABS: Anion Gap 17 (12-20); Blood Urea Nitrogen 22 mg/dL (9-16); Calcium 7.9 mg/dL (8.4-10.2); Carbon Dioxide 18 mmol/L (22-29); Chloride 110 mmol/L (96-108); Creatinine Clr Calc Pharmacy 47.1; Estimated Glomerular Filt Rate 56; Glucose Random 229 mg/dL (60-115); Potassium 4.3 mmol/L (3.3-5.1); Sodium 141 mmol/L (135-145)
[2023-09-09 21:03] LABS: Appearance Urine Turbid; Color Urine Yellow; Glucose Urine UA Negative (Negative); Leukocyte Esterase Urine Negative (Negative); Nitrite Urine Negative (Negative); UMIC TRIGGER UACC YES; Urine Blood Negative (Negative); Urine Ketones Negative (Negative); Urine Protein 100 (2+) mg/dL (Neg-Trace)
[2023-09-09 21:06] LABS: Lactic Acid 2.4 mmol/L (0.5-2.0)
[2023-09-09 21:11] LABS: Troponin-I High Sensitivity 137.5 ng/L (<3.5-35.0)
--- NOTE | 2023-09-09 21:11 | PC.NURSE ---
pt power port accessed . pt tolerated well. pt medicated according to mar
[2023-09-09 21:13] LABS: Neutrophils Percent Manual 35 % (45-73)
[2023-09-09 21:15] LABS: Atypical Lymphs Percent Manual 1 % (0-6); Band Neutrophils Percent 30 % (3-5); Basophils Percent Manual 1 % (0-2); Eosinophils Percent Manual 1 % (0-4); Lymphocytes Absolute Manual 0.5 X10*3/uL (1.2-4.9); Lymphocytes Percent Manual 15 % (20-40); Metamyelocytes Absolute 0.2 X10*3/uL; Metamyelocytes Percent 5 %; Monocytes Absolute Manual 0.3 X10*3/uL (0.1-1.2); Monocytes Percent Manual 11 % (2-11); Myelocytes Percent 1 %; Nucleated Red Blood Cells 14 /100WBC (0-0)
[2023-09-09 21:16] LABS: Large Platelet PRESENT; Macrocytosis 1+ (5-14) /OIF; Platelet Estimate DECREASED (NORMAL); Platelet Morphology Comment NOTED; RBC Morphology NOTED
[2023-09-09 21:17] VITALS: BP 109/48; PULSE 118; RESP 22; O2SAT 97
[2023-09-09 21:17] LABS: Ovalocytes 1+ (5-14) /OIF; Polychromasia 2+ (3-5) /OIF; Schistocytes 1+ (0-2) /OIF; Tear Drop Cells 3+ (>5) /OIF
[2023-09-09 21:20] LABS: Bacteria Urine None Seen (None Seen); Hyaline Casts Urine >20 /LPF (0-2); Other Crystals Urine Present; RBC Urine 0-2 /HPF (0-2); Squamous Epithelial Cell Urine >20 /HPF (0-2); UACC Culture Trigger YES
[2023-09-09] MEDS: cefTRIAXone sodium 1 GM in 0.9 % Sodium Chloride 50 ML IV (21:27)
[2023-09-09] MEDS: 0.9 % Sodium Chloride 1,500 ML 999 ML IVCONT (21:28)
[2023-09-09 21:51] VITALS: BP 101/53; PULSE 112; RESP 22; TEMP 39.3; O2SAT 97
--- NOTE | 2023-09-09 21:52 | MHC.EDTECH ---
This tech assisted with patient, vitals were taken and temp is 102.7 rectally and BP is low 101/53,Anni LUCIO aware and is at bedsid e
--- NOTE | 2023-09-09 22:01 | MHC.EDTECH ---
This tech made DR. grey's aware of temp and BP being low
[2023-09-09] MEDS: Azithromycin 500 MG in 0.9 % Sodium Chloride 250 ML 125 MG IV (22:03)
[2023-09-09 22:39] LABS: Reflex Lactate? Lactic Acid Added
[2023-09-09 23:18] LABS: ~Lactic Acid-LAB USE ONLY 1.1 mmol/L (0.5-2.0)
[2023-09-09 23:35] LABS: Troponin-I High Sensitivity 144.3 ng/L (<3.5-35.0)
--- NOTE | 2023-09-09 23:38 | P.HPHOSP_ITS ---
History of Present Illness Date of Service: 09/09/23 Attending physician on admission: J Carlos Toledo Chief Complaint: Increased weakness, sore throat, cough, dizziness since yesterday 82 year old white male with PMH of metastatic prostate cancer (currently on home hospice), hypothyroidism, GERD and recent diagnosis of COVID-19 infection (has had 2 days of Paxlovid) presents to the emergency room complaining of progressive weakness , sore throat, wet cough, dizziness, nausea & vomiting with decreased oral intake since yesterday. He also reports a fall yesterday after his legs got weak and gave out. He denies any associated chest pain or shortness of breath. When EMS arrived at scene, they found that he was hypoxic with oxygen saturation of 84% on room air and so they placed him on 4L of supplemental oxygen with improvement in his oxygenation to 95%. Initial work up in the emergency room was notable for a positive influenza B infection , pancytopenia, elevated high sensitivity troponin I (137.5 ng/L), elevated lactic acid (2.4) and hyperglycemia with a blood sugar of 229. He was started on IV fluids, decadron and empiric Azithromycin and Ceftriaxone and admission requested for continued care. 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 Mother No problems noted. 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) Alcohol intake: current Alcohol intake frequency: holidays/special occasions only Patient Tobacco Use Status: Former Tobacco user Quit Date: Tobacco use type: Cigarette e-Cigarette/Vaping Use: Never Used Second Hand Smoke Exposure: Yes Advance Directives: Yes Advance Directives on File: Yes Advance Directives Date on File: 05/10/22 service: No Current occupational status: retired Cognitive needs: No Hearing needs: No Vision needs: Yes Meds Allergies Allergy/AdvReac Type Severity Reaction Status Date / Time No Known Allergies Allergy Verified 08/22/23 10:32 Home Medications Medication Instructions Recorded Confirmed Last Taken Type vit C 250 mg-vit E 90 mg-zinc 40 1 tab PO QAM 12/08/21 09/10/23 Unknown History mg-copper 1 [id number] capsule (PreserVision AREDS-2) cholecalciferol (vitamin D3) 50 50 mcg PO DAILY 08/22/23 09/10/23 Unknown History mcg (2,000 unit) capsule omeprazole 20 mg capsule,delayed 20 mg PO DAILY 08/22/23 09/10/23 Unknown History release Physical Exam 2 Vital Signs and Narrative: Vital Signs: Last Vital Signs Temp 102.7 F H 09/09/23 21:51 Pulse 112 H 09/09/23 21:51 Resp 22 H 09/09/23 21:51 BP 101/53 L 09/09/23 21:51 Pulse Ox 97 09/09/23 21:51 O2 Del Method Nasal Cannula 09/09/23 21:51 O2 Flow Rate 3 09/09/23 21:51 BMI result Body Mass Index 24.2 General: Ill appearing white male in bed. Awake, alert and oriented x 4. No apparent distress Eyes: No pallor or jaundice. PERRLA, EOMI HENT: Moist oral mucus membranes. No oropharyngeal lesions. Neck: Supple. No cervical adenopathy. No JVD Cardiovascular: Regular rate and rhythm. Normal heart sounds. No murmurs, rubs or gallops. No JVD. No peripheral edema. Respiratory: Normal respiratory effort with no accessory muscle use. Coarse bilateral breath sounds. Gastrointestinal: Abdomen is soft, non-tender, non-distended. NABS. No hepatosplenomegaly Extremities: No edema. No calf tenderness. Good peripheral pulses Skin: Warm/Dry. No rashes. No mottling. Capillary refill is < 2 seconds Neurological: AAOx4. Intact speech & cognition. Gait & balance not tested but moves all extremities spontaneously. CN II - XII grossly intact but not individually tested. No motor or sensory deficits Hematologic: No bleeding. No ecchymosis. No swollen or tender lymph nodes. Psychiatric: Cooperative. Appropriate mood and affect. Results Labs 09/09/23 20:33 09/09/23 20:33 Labs: Laboratory Results - last 24 hr 09/09/23 09/09/23 09/09/23 20:33 20:51 22:57 MCV 100.0 H MCH 31.9 MCHC 31.9 RDW 17.3 H Plt Count 62 L D MPV 9.5 Immature Gran % (Auto) Cancelled Neut % (Auto) Cancelled Lymph % (Auto) Cancelled [place] % (Auto) Cancelled Eos % (Auto) Cancelled Baso % (Auto) Cancelled Lymph # (Auto) Cancelled [place] # (Auto) Cancelled Eos # (Auto) Cancelled Baso # (Auto) Cancelled Abs Immat Gran (auto) Cancelled Absolute Neuts (auto) Cancelled Absolute Nucleated RBC 0.360 H Nucleated RBC % (auto) 11.5 H Neutrophils % (Manual) 35 L Band Neutrophils % 30 H Lymphocytes % (Manual) 15 L Atypical Lymphs % (Man) 1 Monocytes % (Manual) 11 Eosinophils % (Manual) 1 Basophils % (Manual) 1 Metamyelocytes % 5 Myelocytes % 1 Abs Neuts (Manual) 2.0 Lymphocytes # (Manual) 0.5 L Monocytes # (Manual) 0.3 Metamyelocytes # 0.2 Nucleated RBCs 14 H Platelet Estimate DECREASED Large Platelets PRESENT Plt Morphology Comment NOTED RBC Morphology NOTED Polychromasia 2+ (3-5) Macrocytosis 1+ (5-14) Tear Drop Cells 3+ (>5) Ovalocytes 1+ (5-14) Schistocytes 1+ (0-2) PT 13.8 H INR 1.1 Anion Gap 17 Estim Creat Clear Calc 47.1 Estimated GFR 56 Random Glucose 229 H Lactic Acid 2.4 H* Lactic Acid F/U @ 2Hr 1.1 Calcium 7.9 L Magnesium 2.0 Urine Color Yellow Urine Appearance Turbid Urine pH 5.0 Ur Specific [place] 1.020 Urine Protein 100 (2+) H Urine Glucose (UA) Negative Urine Ketones Negative Urine Blood Negative Urine Nitrite Negative Ur Leukocyte Esterase Negative Urine RBC 0-2 Urine WBC 6-10 H Ur Squamous Epith Cells >20 Other Crystals Present Urine Bacteria None Seen Hyaline Casts >20 COVID-19 (HEATHER) Positive A COVID-19 Clin Com See Note Influenza Type A (LAURI) Negative Influenza Type B (LAURI) Positive A Influenza A & B Note See Note ECG ECG interpretation date: 09/10/23 ECG interpretation time: 02:37 Interpretation: Sinus tachycardia at 115 bpm with no acute ischemic changes. Imaging Radiologist's Impressions: Impressions Chest X-Ray 09/09/23 22:00 IMPRESSION: No radiographic evidence of pneumonia. Diffuse osteosclerosis, presumably represent clinically known diffuse osseous metastatic disease from prostate cancer, unchanged. Assessment and Plan (1) Sepsis due to severe acute respiratory syndrome coronavirus 2 (SARS-CoV-2): Status: Acute (2) Acute hypoxic respiratory failure: Status: Acute (3) Influenza B: Status: Acute Plan 82 year old white male with past medical history of metastatic prostate cancer (currently on home hospice), hypothyroidism, GERD and recent diagnosis of COVID- 19 here with 1. Severe sepsis - meets criteria of severe sepsis (with a WBC count of less than 4 with bandemia, fever of 102 F, tachycardia, tachypnea with elevated serum lactic acid) - however BP has been fairly stable nehemias though has received 3 L of normal saline - cause likely COVID-19 and Influenza B infection - continue Paxlovid for now but can consider Remdesivir tomorrow - start Tamiflu 2. Acute respiratory failure with hypoxemia - SpO2 of 84% on room air when first found at home - improved with supplemental Oxygen - continue supplemental oxygen and dexamethasone 3. COVID-19 infection - patient states that he was diagnosed several days ago and is currently on Paxlovid - continue same while admitted - continue supplemental oxygen and dexamethasone 4. Influenza B Infection - tested positive for Influenza B - start on Tamiflu 5. Elevated Troponin I - High sensitivity troponin of 137 ng/L - likely with myocardial stress secondary to COVID-19 6. Hypothyroidism - resume Levothyroxine DVT: SC Lovenox CODE STATUS: Full code Admission for at least 2 midnights for management of severe sepsis, respiratory failure and COVID-19 infection and Influenza B infection. Total time managing care of this patient today: 75 minutes. Quality Stroke Does the patient have a stroke diagnosis?: No VTE Prior VTE?: No VTE Risk Level:: Medical - moderate - high VTE Device Contraindication: N/A - Device Ordered VTE Drug Contraindication: N/A - Med Ordered
[2023-09-10] VITALS (16 sets, daily range): BP systolic 95–119; BP diastolic 52–78; PULSE 78–95; RESP 13–20; TEMP 36.1–37.9; O2SAT 86–97; BMI 24.9
[2023-09-10] MEDS: 0.9 % Sodium Chloride 1,000 ML 999 ML IV (00:15)
--- NOTE | 2023-09-10 01:30 | PC.NURSE ---
pt son selvin trent called this rn . pt son provided with update on pt status. pt son left phone # [phone]. pt remains calm and cooperative alert and oriented
[2023-09-10] MEDS: Dextrose 5 % and 0.9 % NaCl 1,000 ML 125 ML IVCONT (01:55)
[2023-09-10] MEDS: Enoxaparin Sodium 40 MG/0.4 ML SYRINGE 70 MG SUBCUT (01:58)
--- NOTE | 2023-09-10 02:26 | PC.NURSE ---
med rec performed by this rn utilizing med list provided by pt's son.
--- NOTE | 2023-09-10 02:38 | PC.NURSE ---
PO paxlovid not available in ED pyxis. this rn contacted oncall pharmacy. per registration scheduling specialist pharmacist med only available in main pharmacy. per registration scheduling specialist pharmacist document now dose as not given- med not available next dose will be due for 0900
[2023-09-10] MEDS: Oseltamivir Phosphate 75 MG CAPSULE PO (03:50)
--- NOTE | 2023-09-10 04:25 | PC.NURSE ---
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 marlenadron flagging as not given, med not verified by pharmacy at this time
[2023-09-10] MEDS: dexAMETHasone sod phosphate 4 MG/ML VIAL 6 MG IVPUSH (05:14)
--- NOTE | 2023-09-10 05:37 | PC.NURSE ---
Patient arrived on floor at approx 0430. Pt is A&O x4, cooperative with care. Port a cath to right side of chest that has been accessed and IVF infusing. Pt tells this RN he is on palliative care at home with [facility] and is a DNR/DNI. Dr. Toledo notified via [employer].
[2023-09-10 07:11] LABS: Hematocrit 21.1 % (42.0-52.0); Mean Corpuscular HGB Conc 31.3 g/dl (31.0-36.0); Mean Corpuscular Hemoglobin 32.2 pg (27.0-33.0); Mean Corpuscular Volume 102.9 fL (80.0-98.0); Mean Platelet Volume 10.6 fL (9.4-12.4); Red Blood Count 2.05 X10*6/uL (4.60-5.80); Red Cell Distribution Width 17.4 % (11.0-16.0)
[2023-09-10 07:23] LABS: NRBC Pct Auto 9.3 /100WBC (0.0-0.2); Platelet Count 50 X10*3/uL (160-400); WBC ABN SCTR FOR CBC 1
[2023-09-10 07:24] LABS: White Blood Count 2.1 X10*3/uL (4.8-10.8)
[2023-09-10 07:25] LABS: Hemoglobin 6.6 g/dl (14.0-18.0)
--- NOTE | 2023-09-10 07:30 | PHA.MEDREC ---
Pharmacy Consult ? Medication Reconciliation Pharmacy has completed the medication reconciliation. Reviewed med rec done by nursing (Anni).
[2023-09-10 07:40] LABS: Band Neutrophils Percent 8 % (3-5); Basophils Percent Manual 2 % (0-2); Lymphocytes Absolute Manual 0.9 X10*3/uL (1.2-4.9); Lymphocytes Percent Manual 41 % (20-40); Metamyelocytes Absolute 0.1 X10*3/uL; Metamyelocytes Percent 3 %; Monocytes Absolute Manual 0.1 X10*3/uL (0.1-1.2); Monocytes Percent Manual 4 % (2-11); Myelocytes Absolute 0.1 X10*/uL; Myelocytes Percent 4 %; Neutrophils Absolute Manual 0.9 X10*3/uL (2.0-8.3); Neutrophils Percent Manual 37 % (45-73); Nucleated Red Blood Cells 7 /100WBC (0-0); Promyelocytes Percent 1 %; RBC Morphology NOTED
[2023-09-10 07:41] LABS: Ovalocytes 1+ (5-14) /OIF; Platelet Estimate DECREASED (NORMAL); Platelet Morphology Comment NORMAL
[2023-09-10 07:42] LABS: Polychromasia 2+ (3-5) /OIF; Tear Drop Cells 2+ (3-5) /OIF
[2023-09-10 07:54] LABS: Alanine Aminotransferase 28 U/L (0-40); Alkaline Phosphatase 167 U/L (39-117); Anion Gap 13 (12-20); Aspartate Amino Transferase 80 U/L (5-37); Bilirubin Total 0.5 mg/dL (0.0-1.0); Blood Urea Nitrogen 20 mg/dL (9-16); Calcium 6.5 mg/dL (8.4-10.2); Carbon Dioxide 16 mmol/L (22-29); Chloride 115 mmol/L (96-108); Cholesterol 107 mg/dL (<200); Estimated Glomerular Filt Rate > 60; Glucose Random 379 mg/dL (60-115); HDL Cholesterol 32 mg/dL (>40); LDL Cholesterol Calculated 59 mg/dL (<100); Potassium 3.8 mmol/L (3.3-5.1); Sodium 140 mmol/L (135-145); Thyroid Stimulating Hormone 0.11 uIU/mL (0.32-4.0); Total Protein 5.1 g/dL (6.5-8.0); Triglycerides 80 mg/dL (<150)
[2023-09-10 08:15] LABS: Immature Retic Fraction 18.7 % (2.3-13.4); Retic HGB Equivalent 30.8 pg (30.0-35.0); Reticulocyte Percent 3.8 % (0.5-1.8); Reticulocytes Absolute 0.077 X10*6/uL (0.026-0.095)
[2023-09-10 08:16] LABS: C Reactive Protein 14.91 mg/dL (< or = 0.50); Iron 8 mcg/dL (45-160); Lactate Dehydrogenase 1057 U/L (118-273); Percent Iron Saturation 6 % (15-50); Total Iron Binding Capacity 134 mcg/dL (228-428); Unsaturated Iron Binding 126 ug/dL
[2023-09-10 08:37] LABS: Procalcitonin 2.47 ng/mL
--- NOTE | 2023-09-10 08:43 | PM.GICN ---
History of Present Illness Data of Consult Service Date: 09/10/23 Requesting physician: Laure Hansen Primary Care Provider: Héctor Perla MD HPI Reason for consult: severe anemia 82 YM with metastatic prostate cancer (currently on home hospice), hypothyroidism, GERD and recent diagnosis of COVID-19 infection (has had 2 days of Paxlovid) seen at [facility] on 09/19/23 with progressive weakness , sore throat, wet cough, dizziness, nausea & vomiting with decreased oral intake since yesterday. He also reported falling on 09/08/23 after his legs got weak and gave out. Pt denied chest pain or shortness of breath. When EMS arrived at scene, they found that he was hypoxic with oxygen saturation of 84% on room air and he was placed on 4L of supplemental oxygen with improvement in his oxygenation to 95%. Initial work up in the emergency room was notable for a positive COVID 19 and influenza B infection , pancytopenia, elevated high sensitivity troponin I (137.5 ng/L), elevated lactic acid (2.4) and hyperglycemia with a blood sugar of 229. He was started on IV fluids, decadron and empiric Azithromycin and Ceftriaxone and admission requested for continued care Pt denies abdominal pain, heartburn or recent change in BM Stool occult blood was negative. 09/09/23 CHEST XRAY SHOWED: No radiographic evidence of pneumonia. Diffuse osteosclerosis, presumably represent clinically known diffuse osseous metastatic disease from prostate cancer, unchanged. PAST GI HISTORY BY REVIEW OF MEDICAL RECORDS Pt had a colonoscopy for hematochezia Four polyps removed (three polyps were adenomatous) Moderate to severe diverticulosis seen in the entire colon Scattered telangietasis from past XRT for prostate cancer in the distal 5 cms - likely source of rectal bleeding Moderate hemorrhoids on retroflexed exam. Plan: Repeat Colonoscopy in 3 years since 3 adenomatous polyps were removed and cecal polyp was > 1 cms. Above findings were reviewed with the patient and colon polyps and diverticulosis handouts were given in the discharge area Pt was seen in March, and advised repeat colon for FU of colonoscopy and procedure was not scheduled Review of Systems Review of Systems: Yes all other systems are reviewed and are negative PMFSH Past Medical History Medical History Wears hearing aid in both ears Port-A-Cath in place Family history of anesthesia complication COVID-19 vaccine series completed History of chemotherapy GERD without esophagitis Overweight (BMI 25.0-29.9) Acquired hypothyroidism Pure hypercholesterolemia Diabetes mellitus Primary osteoarthritis of right knee Ascending aorta dilatation Non-rheumatic aortic regurgitation 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 Mother No problems noted. Surgical History Surgical History Hx of bilateral cataract extraction History of total right knee replacement H/O colonoscopy History of prostatectomy (~03/31/07) History of left inguinal hernia repair (~02/2011) History of appendectomy History of shoulder surgery Social History Social History Household Members: Spouse Housing: House Are you a primary grounds caretaker to a significant other at home: Yes (, bedridden ,Alzheimer's, on Hospice) Do you presently have visiting nurse or other home services: Yes ([facility], palliative care) Alcohol intake: current Alcohol intake frequency: holidays/special occasions only Patient Tobacco Use Status: Former Tobacco user Quit Date: Tobacco use type: Cigarette e-Cigarette/Vaping Use: Never Used Second Hand Smoke Exposure: Yes Advance Directives Date on File: 05/10/22 service: No Current occupational status: retired Cognitive needs: No Hearing needs: No Vision needs: Yes Meds Allergies Allergy/AdvReac Type Severity Reaction Status Date / Time No Known Allergies Allergy Verified 08/22/23 10:32 Active Medications: Current Medications Acetaminophen (Acetaminophen 325 Mg Tablet) 650 mg PO Q6H PRN PRN Reason: Pain, Mild (Pain Scale 1-3) Al Hydroxide/Mg Hydroxide (Magnesium Hydrox/Alum Hydrox 30 Ml Oral.Susp) 30 ml PO Q4H PRN PRN Reason: Heartburn/Nausea Dexamethasone Sodium Phosphate (Dexamethasone Sod Phosphate 4 Mg/Ml Vial) 6 mg IVPUSH DAILY [facility] Stop: 09/19/23 09:01 Dextrose (Dextrose 50 % 25 Gm/50 Ml Syringe) 25 gm IVPUSH Q15M PRN; Protocol PRN Reason: per Hypoglycemia Standing Ord. Docusate Sodium (Docusate Sodium 100 Mg Capsule) 100 mg PO BID [facility] Glucose (Glucose Gel 15 Gm Gel..Gram.) 15 gm PO Q15M PRN; Protocol PRN Reason: per Hypoglycemia Standing Ord. Remdesivir 200 mg/ Sodium (Chloride) 210 mls @ 105 mls/hr IV ONCE ONE Stop: 09/10/23 10:59 Remdesivir 100 mg/ Sodium (Chloride) 230 mls @ 115 mls/hr IV Q24H [facility] Stop: 09/14/23 09:59 Insulin Human Lispro (Insulin Lispro 100 Unit/Ml 3 Ml Vial) 0 unit SUBCUT QIDACHS [facility]; Protocol Levothyroxine Sodium (Levothyroxine Sodium 88 Mcg Tablet) 88 mcg PO DAILY@0600 [facility] Melatonin (Melatonin 3 Mg Tablet) 6 mg PO BEDTIME PRN PRN Reason: Insomnia Nitroglycerin (Nitroglycerin 0.4 Mg Tab.Subl) 0.4 mg SUBLINGUAL Q5MX3 PRN PRN Reason: Chest Pain Ondansetron HCl (Ondansetron Hcl 4 Mg/2 Ml Vial) 4 mg IVPUSH Q8H PRN PRN Reason: Nausea and Vomiting Oseltamivir Phosphate (Oseltamivir Phosphate 30 Mg Capsule) 30 mg PO Q12H [facility] Pantoprazole Sodium (Pantoprazole Sodium 40 Mg/10 Ml Vial) 40 mg IVPUSH BID@0630,1630 [facility] Sodium Chloride (0.9 % Sodium Chloride Flush 3 Ml Syringe) 3 ml IVFLUSH QSHIFT [facility] Last Admin: 09/10/23 01:15 Dose: Not Given Vitamin D (Cholecalciferol (Vitamin D3) 25 Mcg Tablet) 50 mcg PO DAILY [facility] Home Medications Medication Instructions Recorded Confirmed Last Taken Type vit C 250 mg-vit E 90 mg-zinc 40 1 tab PO QAM 12/08/21 09/10/23 Unknown History mg-copper 1 [id number] capsule (PreserVision AREDS-2) cholecalciferol (vitamin D3) 50 50 mcg PO DAILY 08/22/23 09/10/23 Unknown History mcg (2,000 unit) capsule omeprazole 20 mg capsule,delayed 20 mg PO DAILY 08/22/23 09/10/23 Unknown History release levothyroxine 88 mcg tablet 88 mcg PO DAILY@0600 09/10/23 09/10/23 Unknown History Physical Exam Vital Signs: Vital Signs: Last Vital Signs Temp 98.4 F 09/10/23 07:20 Pulse 79 09/10/23 07:20 Resp 20 09/10/23 07:20 BP 95/54 L 09/10/23 07:20 Pulse Ox 92 09/10/23 07:20 O2 Del Method Nasal Cannula 09/10/23 07:20 O2 Flow Rate 2 09/10/23 07:20 BMI result Body Mass Index 24.9 Const: General: no acute distress and ill appearing (Chronically ill) Orientation/consciousness: patient oriented x3 Limitations: physical limitations HEENT: Head: Yes normal to inspection Ears: hearing grossly normal bilaterally Eyes: Sclerae: sclerae normal Pupils: Equal, round and reactive pupils present Neck: Neck: Yes normal visual inspection Chest: Chest palpation & inspection: normal inspection of the chest Resp: Effort & Inspection: normal respiratory effort Auscultation: clear to auscultation bilaterally Cardio: Palpation: normal PMI Rate: regular rate Rhythm: regular rhythm Heart sounds: S1 normal heart sound present, S2 normal heart sound present and no murmurs GI: Palpation (GI): Soft to palpation, nontender and No hepatosplenomegaly present Auscultation: normal bowel sounds Rectal Exam - Male: Yes deferred Skin: General skin exam: no rashes or lesions noted Neuro: General: patient oriented x3, gait normal and moves all extremities Cranial nerves: Yes Equal, round and reactive pupils present Psych: Appearance: grossly normal Mental Status: mental status grossly normal Results Labs 09/10/23 06:45 09/10/23 06:45 Labs: Short CBC 09/09/23 09/10/23 Range/Units 20:33 06:45 WBC 3.1 L 2.1 L (4.8-10.8) X10*3/uL Hgb 8.3 L 6.6 L* D (14.0-18.0) g/dl Hct 26.0 L 21.1 L (42.0-52.0) % Plt Count 62 L D 50 L (160-400) X10*3/uL BMP 09/09/23 09/10/23 20:33 06:45 Sodium 141 140 Potassium 4.3 3.8 Chloride 110 H 115 H Carbon Dioxide 18 L 16 L BUN 22 H 20 H Creatinine 1.25 0.95 Calcium 7.9 L 6.5 L D Liver Function 09/10/23 Range/Units 06:45 Total Bilirubin 0.5 (0.0-1.0) mg/dL AST 80 H (5-37) U/L ALT 28 (0-40) U/L Alkaline Phosphatase 167 H (39-117) U/L Albumin 3.0 L (3.5-5.0) g/dL Urine 09/09/23 Range/Units 20:51 Urine Color Yellow Urine Appearance Turbid Urine pH 5.0 (5.0-9.0) Ur Specific [place] 1.020 (1.005-1.025) Urine Protein 100 (2+) H (Neg-Trace) mg/dL Urine Glucose (UA) Negative (Negative) mg/dL Assessment and Plan (1) Anemia: Status: Acute (2) History of colon polyps: Status: Acute Plan 82 YM with metastatic prostate cancer (currently on home hospice), hypothyroidism, GERD and recent diagnosis of COVID-19 infection (has had 2 days of Paxlovid) seen at [facility] on 09/19/23 with progressive weakness , sore throat, wet cough, dizziness, nausea & vomiting with decreased oral intake since yesterday. Initial work up in the emergency room was notable for a positive COVID 19 and influenza B infection , pancytopenia, elevated high sensitivity troponin I (137.5 ng/L), elevated lactic acid (2.4) and hyperglycemia with a blood sugar of 229. He was started on IV fluids, decadron and empiric Azithromycin and Ceftriaxone and admission requested for continued care Iron studies are suggestive of anemia of chronic disease and stool occult blood was negative. RECOMMENDATIONS: 1. Agree with IVF and PPI and blood transfusion 2. Follow CBC daily and transfuse prn. 3. Given advanced age, multiple comorbidities, metastatic prostate cancer (on hospice) and recent COVID infection, and lack of overt bleeding further evaluation with endoscopic procedures is not indicated. Procedures Date of Service Date of Service: 09/10/23
[2023-09-10 08:58] LABS: OBS Int Ctl Valid YES; OBS1 NEGATIVE (NEGATIVE)
[2023-09-10 09:05] LABS: Troponin-I High Sensitivity 131.4 ng/L (<3.5-35.0)
[2023-09-10 09:19] LABS: Ferritin 2052 ng/mL (20-250)
[2023-09-10] MEDS: cefTRIAXone sodium 1 GM in 0.9 % Sodium Chloride 50 ML IV (09:38)
[2023-09-10] MEDS: Pantoprazole Sodium 40 MG/10 ML VIAL IVPUSH ×2 (09:40→16:46)
[2023-09-10] MEDS: Doxycycline Hyclate 100 MG in 0.9 % Sodium Chloride 250 ML 166.67 MG IV ×2 (09:41→21:53)
[2023-09-10] MEDS: Docusate Sodium 100 MG CAPSULE PO (09:47)
[2023-09-10] MEDS: 0.9 % Sodium Chloride Flush 3 ML SYRINGE IVFLUSH ×3 (09:47→21:53)
[2023-09-10] MEDS: Cholecalciferol (Vitamin D3) 25 MCG TABLET 50 MCG PO (09:47)
[2023-09-10] MEDS: Levothyroxine Sodium 88 MCG TABLET PO (09:47)
[2023-09-10] MEDS: Remdesivir 200 MG in 0.9 % Sodium Chloride 210 ML 105 MG IV (10:00)
[2023-09-10 10:03] LABS: Folate 7.5 ng/mL (> or = 4.0); Vitamin B12 727 pg/mL (200-900)
[2023-09-10 10:57] LABS: Glucose, Whole Blood 291 mg/dL (60-115)
[2023-09-10] MEDS: Insulin Lispro 100 UNIT/ML 3 ML VIAL SUBCUT ×3 (12:13→22:00)
[2023-09-10] MEDS: Oseltamivir Phosphate 30 MG CAPSULE PO ×2 (12:14→23:36)
[2023-09-10] MEDS: Throat Lozenge, Medicated LOZENGE 1 LOZENGE MUCOUS MEM ×4 (12:14→23:36)
--- NOTE | 2023-09-10 13:13 | HO.PM.IMPN ---
Subjective Subjective Date of Service: 09/10/23 Interval History: C/o dyspnea, dry cough, sore throat No chest pain Tmax 102.7 overnight Hb low, FOBT neg, consents to transfusion Review of Systems Review of Systems: Yes all other systems are reviewed and are negative Physical Exam Vital Signs: Vital Signs: Last Vital Signs Temp 97.4 F 09/10/23 12:20 Pulse 84 09/10/23 12:20 Resp 18 09/10/23 12:20 BP 103/53 L 09/10/23 12:20 Pulse Ox 97 09/10/23 11:00 O2 Del Method Nasal Cannula 09/10/23 11:00 O2 Flow Rate 2 09/10/23 11:00 BMI result Body Mass Index 24.9 Gen: in no acute distress but weak-appearing HEENT: sclera anicteric, moist mucus membranes Neck: supple Lungs: diminished Heart: regular rate and rhythm, no murmurs Abd: soft, non-tender, non-distended Ext: no edema Skin: warm/well-perfused, L subclavian port in place Neuro: alert and oriented x3, no focal findings Psych: appropriate affect Objective Data Active Medications Acetaminophen (Acetaminophen 325 Mg Tablet) 650 mg PO Q6H PRN PRN Reason: Pain, Mild (Pain Scale 1-3) Al Hydroxide/Mg Hydroxide (Magnesium Hydrox/Alum Hydrox 30 Ml Oral.Susp) 30 ml PO Q4H PRN PRN Reason: Heartburn/Nausea Benzocaine (Throat Lozenge, Medicated Lozenge) 1 lozenge MUCOUS MEM Q2H PRN PRN Reason: Sore Throat Last Admin: 09/10/23 12:14 Dose: 1 lozenge Documented By: JULISSA Dexamethasone Sodium Phosphate (Dexamethasone Sod Phosphate 4 Mg/Ml Vial) 6 mg IVPUSH DAILY [facility] Stop: 09/19/23 09:01 Dextrose (Dextrose 50 % 25 Gm/50 Ml Syringe) 25 gm IVPUSH Q15M PRN; Protocol PRN Reason: per Hypoglycemia Standing Ord. Docusate Sodium (Docusate Sodium 100 Mg Capsule) 100 mg PO BID [facility] Last Admin: 09/10/23 09:47 Dose: 100 mg Documented By: JULISSA Glucose (Glucose Gel 15 Gm Gel..Gram.) 15 gm PO Q15M PRN; Protocol PRN Reason: per Hypoglycemia Standing Ord. Remdesivir 100 mg/ Sodium (Chloride) 230 mls @ 115 mls/hr IV Q24H [facility] Stop: 09/14/23 09:59 Ceftriaxone Sodium 1 gm/ (Sodium Chloride) 50 mls @ 100 mls/hr IV Q24H [facility] Last Infusion: 09/10/23 10:17 Dose: Infused Documented By: JULISSA Doxycycline Hyclate 100 mg/ (Sodium Chloride) 250 mls @ 166.67 mls/hr IV Q12H [facility] Last Infusion: 09/10/23 11:27 Dose: Infused Documented By: JULISSA Insulin Human Lispro (Insulin Lispro 100 Unit/Ml 3 Ml Vial) 0 unit SUBCUT QIDACHS [facility]; Protocol Last Admin: 09/10/23 12:13 Dose: 6 unit Documented By: JULISSA Levothyroxine Sodium (Levothyroxine Sodium 88 Mcg Tablet) 88 mcg PO DAILY@0600 [facility] Last Admin: 09/10/23 09:47 Dose: 88 mcg Documented By: JULISSA Melatonin (Melatonin 3 Mg Tablet) 6 mg PO BEDTIME PRN PRN Reason: Insomnia Nitroglycerin (Nitroglycerin 0.4 Mg Tab.Subl) 0.4 mg SUBLINGUAL Q5MX3 PRN PRN Reason: Chest Pain Ondansetron HCl (Ondansetron Hcl 4 Mg/2 Ml Vial) 4 mg IVPUSH Q8H PRN PRN Reason: Nausea and Vomiting Oseltamivir Phosphate (Oseltamivir Phosphate 30 Mg Capsule) 30 mg PO Q12H [facility] Last Admin: 09/10/23 12:14 Dose: 30 mg Documented By: JULISSA Pantoprazole Sodium (Pantoprazole Sodium 40 Mg/10 Ml Vial) 40 mg IVPUSH BID@0630,1630 [facility] Last Admin: 09/10/23 09:40 Dose: 40 mg Documented By: JULISSA Sodium Chloride (0.9 % Sodium Chloride Flush 3 Ml Syringe) 3 ml IVFLUSH QSHIFT [facility] Last Admin: 09/10/23 09:47 Dose: 3 ml Documented By: JULISSA Vitamin D (Cholecalciferol (Vitamin D3) 25 Mcg Tablet) 50 mcg PO DAILY [facility] Last Admin: 09/10/23 09:47 Dose: 50 mcg Documented By: JULISSA Labs 09/10/23 06:45 09/10/23 06:45 Labs: Laboratory Results - last 24 hr 09/09/23 09/09/23 09/09/23 20:33 20:51 22:57 MCV 100.0 H MCH 31.9 MCHC 31.9 RDW 17.3 H Plt Count 62 L D MPV 9.5 Immature Gran % (Auto) Cancelled Neut % (Auto) Cancelled Lymph % (Auto) Cancelled [place] % (Auto) Cancelled Eos % (Auto) Cancelled Baso % (Auto) Cancelled Lymph # (Auto) Cancelled [place] # (Auto) Cancelled Eos # (Auto) Cancelled Baso # (Auto) Cancelled Abs Immat Gran (auto) Cancelled Absolute Neuts (auto) Cancelled Absolute Nucleated RBC 0.360 H Nucleated RBC % (auto) 11.5 H Neutrophils % (Manual) 35 L Band Neutrophils % 30 H Lymphocytes % (Manual) 15 L Atypical Lymphs % (Man) 1 Monocytes % (Manual) 11 Eosinophils % (Manual) 1 Basophils % (Manual) 1 Metamyelocytes % 5 Myelocytes % 1 Promyelocytes % Abs Neuts (Manual) 2.0 Lymphocytes # (Manual) 0.5 L Monocytes # (Manual) 0.3 Metamyelocytes # 0.2 Myelocytes # Nucleated RBCs 14 H Platelet Estimate DECREASED Large Platelets PRESENT Plt Morphology Comment NOTED RBC Morphology NOTED Polychromasia 2+ (3-5) Macrocytosis 1+ (5-14) Tear Drop Cells 3+ (>5) Ovalocytes 1+ (5-14) Schistocytes 1+ (0-2) Absolute Retic Percent Retic Immature Retic Fraction Retic Hgb Equivalent PT 13.8 H INR 1.1 Anion Gap 17 Estim Creat Clear Calc 47.1 Estimated GFR 56 POC Glucose Random Glucose 229 H Lactic Acid 2.4 H* Lactic Acid F/U @ 2Hr 1.1 Calcium 7.9 L Magnesium 2.0 Iron TIBC % Saturation Unsat Iron Binding Ferritin Total Bilirubin AST ALT Alkaline Phosphatase Lactate Dehydrogenase C-Reactive Protein Total Protein Albumin Triglycerides Cholesterol LDL Cholesterol, Calc HDL Cholesterol Vitamin B12 Folate Procalcitonin TSH Urine Color Yellow Urine Appearance Turbid Urine pH 5.0 Ur Specific [place] 1.020 Urine Protein 100 (2+) H Urine Glucose (UA) Negative Urine Ketones Negative Urine Blood Negative Urine Nitrite Negative Ur Leukocyte Esterase Negative Urine RBC 0-2 Urine WBC 6-10 H Ur Squamous Epith Cells >20 Other Crystals Present Urine Bacteria None Seen Hyaline Casts >20 Stool Occult Blood COVID-19 ([facility]) Positive A COVID-19 Clin Com See Note Influenza Type A ([facility]) Negative Influenza Type B ([facility]) Positive A Influenza A & B Note See Note Blood Type Antibody Screen Crossmatch 09/10/23 09/10/23 09/10/23 06:45 08:05 08:38 MCV 102.9 H MCH 32.2 MCHC 31.3 RDW 17.4 H Plt Count 50 L MPV 10.6 Immature Gran % (Auto) Cancelled Neut % (Auto) Cancelled Lymph % (Auto) Cancelled [place] % (Auto) Cancelled Eos % (Auto) Cancelled Baso % (Auto) Cancelled Lymph # (Auto) Cancelled [place] # (Auto) Cancelled Eos # (Auto) Cancelled Baso # (Auto) Cancelled Abs Immat Gran (auto) Cancelled Absolute Neuts (auto) Cancelled Absolute Nucleated RBC 0.190 H Nucleated RBC % (auto) 9.3 H Neutrophils % (Manual) 37 L Band Neutrophils % 8 H Lymphocytes % (Manual) 41 H Atypical Lymphs % (Man) Monocytes % (Manual) 4 Eosinophils % (Manual) Basophils % (Manual) 2 Metamyelocytes % 3 Myelocytes % 4 Promyelocytes % 1 Abs Neuts (Manual) 0.9 L Lymphocytes # (Manual) 0.9 L Monocytes # (Manual) 0.1 Metamyelocytes # 0.1 Myelocytes # 0.1 Nucleated RBCs 7 H Platelet Estimate DECREASED Large Platelets Plt Morphology Comment NORMAL RBC Morphology NOTED Polychromasia 2+ (3-5) Macrocytosis Tear Drop Cells 2+ (3-5) Ovalocytes 1+ (5-14) Schistocytes Absolute Retic 0.077 Percent Retic 3.8 H Immature Retic Fraction 18.7 H Retic Hgb Equivalent 30.8 PT INR Anion Gap 13 Estim Creat Clear Calc 62.0 Estimated GFR > 60 POC Glucose Random Glucose 379 H* Lactic Acid Lactic Acid F/U @ 2Hr Calcium 6.5 L D Magnesium 2.0 Iron 8 L TIBC 134 L % Saturation 6 L Unsat Iron Binding 126 Ferritin 2052 H Total Bilirubin 0.5 AST 80 H ALT 28 Alkaline Phosphatase 167 H Lactate Dehydrogenase 1057 H C-Reactive Protein 14.91 H Total Protein 5.1 L Albumin 3.0 L Triglycerides 80 Cholesterol 107 LDL Cholesterol, Calc 59 HDL Cholesterol 32 L Vitamin B12 727 Folate 7.5 Procalcitonin 2.47 TSH 0.11 L Urine Color Urine Appearance Urine pH Ur Specific [place] Urine Protein Urine Glucose (UA) Urine Ketones Urine Blood Urine Nitrite Ur Leukocyte Esterase Urine RBC Urine WBC Ur Squamous Epith Cells Other Crystals Urine Bacteria Hyaline Casts Stool Occult Blood NEGATIVE COVID-19 ([facility]) COVID-19 Clin Com Influenza Type A ([facility]) Influenza Type B ([facility]) Influenza A & B Note Blood Type O Positive Antibody Screen NEGATIVE Crossmatch See Detail 09/10/23 10:50 MCV MCH MCHC RDW Plt Count MPV Immature Gran % (Auto) Neut % (Auto) Lymph % (Auto) [place] % (Auto) Eos % (Auto) Baso % (Auto) Lymph # (Auto) [place] # (Auto) Eos # (Auto) Baso # (Auto) Abs Immat Gran (auto) Absolute Neuts (auto) Absolute Nucleated RBC Nucleated RBC % (auto) Neutrophils % (Manual) Band Neutrophils % Lymphocytes % (Manual) Atypical Lymphs % (Man) Monocytes % (Manual) Eosinophils % (Manual) Basophils % (Manual) Metamyelocytes % Myelocytes % Promyelocytes % Abs Neuts (Manual) Lymphocytes # (Manual) Monocytes # (Manual) Metamyelocytes # Myelocytes # Nucleated RBCs Platelet Estimate Large Platelets Plt Morphology Comment RBC Morphology Polychromasia Macrocytosis Tear Drop Cells Ovalocytes Schistocytes Absolute Retic Percent Retic Immature Retic Fraction Retic Hgb Equivalent PT INR Anion Gap Estim Creat Clear Calc Estimated GFR POC Glucose 291 H Random Glucose Lactic Acid Lactic Acid F/U @ 2Hr Calcium Magnesium Iron TIBC % Saturation Unsat Iron Binding Ferritin Total Bilirubin AST ALT Alkaline Phosphatase Lactate Dehydrogenase C-Reactive Protein Total Protein Albumin Triglycerides Cholesterol LDL Cholesterol, Calc HDL Cholesterol Vitamin B12 Folate Procalcitonin TSH Urine Color Urine Appearance Urine pH Ur Specific [place] Urine Protein Urine Glucose (UA) Urine Ketones Urine Blood Urine Nitrite Ur Leukocyte Esterase Urine RBC Urine WBC Ur Squamous Epith Cells Other Crystals Urine Bacteria Hyaline Casts Stool Occult Blood COVID-19 ([facility]) COVID-19 Clin Com Influenza Type A ([facility]) Influenza Type B ([facility]) Influenza A & B Note Blood Type Antibody Screen Crossmatch 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 [NOT on home hospice], hypothyroidism, GERD, recent Covid-19 diagnosis presented with dyspnea + hypoxia admitted with hypoxia due to Covid-19 and influenza B found to be profoundly anemic severe sepsis and acute hypoxic respiratory failure due to Covid-19 and influenza B infection - change Paxlovid to remdesivir 09/10-09/14/23 - dexamethasone 09/09-09/18/23 - oseltamivir 09/09-09/13/23 - given PCT elevation, will continue ceftriaxone + doxycycline to cover bacterial infection 09/10- [got ceftriaxone + azithromycin in ED 09/09] - wean O2 as tolerated [currently on 2L via [place]] anemia, iron deficiency - FOBT negative. Transfuse 2u PRBCs, recheck H+H am. IV PPI, GI consult. Iron repletion. Tn-I elevation - flat, likely due to demand from sepsis/infection hypothyroidism - LT4 VTE ppx - SCDs, d/c LMWH due to anemia dispo - TBD In my clinical judgment, the patient requires continued inpatient hospitalization for the following reasons: hypoxia, transfusion I updated pt's son Pro by phone Total time managing care of this patient today: 50 minutes. Quality Stroke Does the patient have a stroke diagnosis?: No VTE Prior VTE?: No VTE Risk Level:: Medical - moderate - high VTE Device Contraindication: N/A - Device Ordered VTE Drug Contraindication: N/A - Med Ordered
--- NOTE | 2023-09-10 13:15 | MHC.CM.PN ---
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 PCP/HCP ON FILE VERIFIED AND PT IS FULLY COVID VAXED EXCEPT [facility] ALSO REPORTS PLAN FOR WHEN PT IS UNABLE TO CARE FOR SELF/LIVE ALONE IS FOR FAMILY TO MOVE IN W/PT.
[2023-09-10 16:34] LABS: Glucose, Whole Blood 235 mg/dL (60-115)
[2023-09-10] MEDS: Ferrous Sulfate 324 MG TABLET.DR PO (16:46)
[2023-09-10 20:13] LABS: Glucose, Whole Blood 172 mg/dL (60-115)
[2023-09-11 03:52] VITALS: BP 111/55; PULSE 80; RESP 18; TEMP 37.1; O2SAT 96
[2023-09-11] MEDS: Pantoprazole Sodium 40 MG/10 ML VIAL IVPUSH ×2 (06:25→16:35)
[2023-09-11] MEDS: Levothyroxine Sodium 88 MCG TABLET PO (06:25)
--- NOTE | 2023-09-11 07:00 | CA_ITS ---
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 Low normal LV ejection fraction 50-55% with impaired relaxation filling pattern with wall motion abnormality as mentioned 2. Mild aortic regurgitation 3. Mildly dilated ascending aorta 3.7 cm 4. No gross pericardial effusion Findings Left Ventricle Normal left ventricular cavity size. There is normal left ventricular wall thickness. The left ventricular systolic function is low normal. The visually estimated ejection fraction is between 50-55%. Spectral Doppler is indicative of an impaired relaxation filling pattern. Peak GLS is -13.4%, which is moderately reduced. Wall Motion Rest Echo Findings The mid inferior and apical septum segments are hypokinetic. The basal inferior segment is akinetic. All other scored wall segments showed normal motion. Right Ventricle Normal right ventricular cavity size and systolic function. Atria The left atrium is normal in size. There is lipomatous hypertrophy of the interatrial septum. There is no evidence of interatrial shunt. The right atrium is normal in size. Aortic Valve There is mild calcification of the aortic valve. There is no aortic valve stenosis. There is mild aortic valve regurgitation. Mitral Valve There is mild anterior and posterior mitral leaflet thickening. There is trace mitral valve regurgitation. There is no mitral valve stenosis. Pulmonic Valve The pulmonic valve was not well visualized. Tricuspid Valve Likely normal tricuspid valve structure and function. Tricuspid regurgitation envelope is inadequate for calculation of right ventricular systolic pressure. Normal right atrial pressure. Great Vessels The pulmonary artery was not well visualized. There is mild dilatation of the ascending aorta measuring 3.70 cm. Venous The inferior vena cava is normal in size and collapses greater than 50% with inspiration. Pericardium/Pleural There is no evidence of pericardial effusion. Prior Study Comparison Changes noted compared to prior study dated: 02/23/2023. LV systolic function is marginally reduced with associated wall motion abnormality Measurements 2D Linear Measurements IVSd: 0.66 0.6-0.9/0.6-1.0 cm LVIDd: 4.94 3.9-5.3/4.2-5.9 cm LVIDd Index: 2.56 2.4-3.2/2.2-3.1 cm/m2 LVIDs: 4.14 2.0-3.6 cm LVPWd: 0.61 0.7-1.1 cm LA Diam: 3.30 2.7-3.8/3.0-4.0 cm LAIDs Index: 1.71 1.5-2.3 cm/m2 LV Mass: 123.57 67-162/88-224 g LV Mass Index: 64.02 43-95/49-115 g/m2 LVOT Diam: 2.20 3.0+(-)1.3 cm 2D Systolic Function EF 4C: 55.80 >55% EF 2C: 46.60 >55% EF BiP: 50.10 >55% Mitral Valve MV Pk E: 0.70 MV PK A: 0.57 MV Decel Time: 218.00 E/A: 1.20 E'Lateral: 6.53 E'Medial: 5.55 E/E' Med: 12.70 E/E' Lat: 10.80 PHT: 64.00 MVA PHT: 3.44 Decel [place]: 3.22 Aortic Valve AoV Pk Jameson: 1.39 AoV Pk Grad: 8.00 LISA: 2.50 AI Pk Jameson: 3.71 AI [place]: 1.89 LVOT LVOT Pk Jameson: 0.91 LVOT Mn Jameson: 0.62 LVOT VTI: 0.21 LVOT Pk Grad: 3.00 LVOT Mn Grad: 2.00 LVOT Diam: 2.20 LVOT Area: 3.80 Diastolic Function MV Pk E: 0.70 MV Pk A: 0.57 E/A: 1.20 E'Medial: 5.55 E/E' Med: 12.70 E' Laterial: 6.53 E/E' Lat: 10.80 Right Ventricle TAPSE (mm): 16.60 TVS' Jameson: 7.83 Tricuspid Valve RA Press: 3.00 Great Vessels Aorta Sinus of Valsalva: 3.60 2.0-3.5 cm Ao Asc: 3.70 2.1-3.4 cm Pulmonary Valve PV Pk Jameson: 0.64 Peak PV Grad: 2.00 Updated in Other Vendor System with Status of Final Efrain Lucero MD electronically signed on 09/11/2023 4:43:54 PM with status of Final
[2023-09-11 07:30] LABS: Hematocrit 31.2 % (42.0-52.0); Hemoglobin 9.9 g/dl (14.0-18.0); Mean Corpuscular HGB Conc 31.7 g/dl (31.0-36.0); Mean Corpuscular Hemoglobin 30.4 pg (27.0-33.0); Mean Corpuscular Volume 95.7 fL (80.0-98.0); Mean Platelet Volume 10.3 fL (9.4-12.4); Red Blood Count 3.26 X10*6/uL (4.60-5.80); Red Cell Distribution Width 17.7 % (11.0-16.0)
[2023-09-11 07:31] LABS: Platelet Count 51 X10*3/uL (160-400)
[2023-09-11 07:32] LABS: NRBC Pct Auto 9.8 /100WBC (0.0-0.2)
[2023-09-11 07:44] LABS: Alanine Aminotransferase 29 U/L (0-40); Albumin Level 3.1 g/dL (3.5-5.0); Alkaline Phosphatase 192 U/L (39-117); Anion Gap 15 (12-20); Aspartate Amino Transferase 91 U/L (5-37); Bilirubin Total 0.6 mg/dL (0.0-1.0); Blood Urea Nitrogen 22 mg/dL (9-16); Carbon Dioxide 17 mmol/L (22-29); Chloride 115 mmol/L (96-108); Creatinine Clr Calc Pharmacy 69.3; Estimated Glomerular Filt Rate > 60; Glucose Random 220 mg/dL (60-115); Potassium 3.6 mmol/L (3.3-5.1); Sodium 143 mmol/L (135-145); Total Protein 5.6 g/dL (6.5-8.0)
[2023-09-11 08:00] VITALS: BP 113/63; PULSE 76; RESP 16; TEMP 36.3; O2SAT 98
[2023-09-11 08:28] LABS: Glucose, Whole Blood 240 mg/dL (60-115)
[2023-09-11] MEDS: Cholecalciferol (Vitamin D3) 25 MCG TABLET 50 MCG PO (08:58)
[2023-09-11] MEDS: Insulin Lispro 100 UNIT/ML 3 ML VIAL SUBCUT ×4 (08:58→21:25)
[2023-09-11] MEDS: dexAMETHasone sod phosphate 4 MG/ML VIAL 6 MG IVPUSH (08:58)
[2023-09-11] MEDS: Doxycycline Monohydrate 100 MG CAPSULE PO ×2 (08:59→21:35)
[2023-09-11] MEDS: Ferrous Sulfate 324 MG TABLET.DR PO ×2 (08:59→16:35)
[2023-09-11] MEDS: 0.9 % Sodium Chloride Flush 3 ML SYRINGE IVFLUSH ×3 (08:59→21:36)
[2023-09-11] MEDS: cefTRIAXone sodium 1 GM in 0.9 % Sodium Chloride 50 ML IV (09:08)
[2023-09-11] MEDS: Throat Lozenge, Medicated LOZENGE 1 LOZENGE MUCOUS MEM ×2 (09:37→21:35)
[2023-09-11] MEDS: Remdesivir 100 MG in 0.9 % Sodium Chloride 230 ML 115 MG IV (09:44)
[2023-09-11 10:59] LABS: Glucose, Whole Blood 201 mg/dL (60-115)
[2023-09-11 11:38] VITALS: BP 120/66; PULSE 77; RESP 18; O2SAT 97
--- NOTE | 2023-09-11 11:54 | MHC.CM.PN ---
EMR reviewed and per MD rounds, pt is not medically cleared for D/C due to continued hypoxia requiring supplemental O2. CM will continue to follow.
[2023-09-11] MEDS: Oseltamivir Phosphate 30 MG CAPSULE PO (12:04)
--- NOTE | 2023-09-11 13:07 | P.PNIM_ITS ---
Subjective Subjective Date of Service: 09/11/23 Interval History: C/o dyspnea, dry cough, sore throat No chest pain or sob Review of Systems Review of Systems: Yes all other systems are reviewed and are negative Physical Exam 2 Vital Signs: Vital Signs: Last Vital Signs Temp 97.4 F 09/11/23 08:00 Pulse 77 09/11/23 11:38 Resp 18 09/11/23 11:38 BP 120/66 09/11/23 11:38 Pulse Ox 97 09/11/23 11:38 O2 Del Method Nasal Cannula 09/11/23 11:38 O2 Flow Rate 3 09/11/23 11:38 BMI result Body Mass Index 24.9 Appearing in no acute distress lung sounds are clear to auscultation heart regular rate rhythm, clear S1, S2 positive bowel sounds, abdomen is soft, nontender neuro patient is alert x3, no focal deficits Objective Data Active Medications Acetaminophen (Acetaminophen 325 Mg Tablet) 650 mg PO Q6H PRN PRN Reason: Pain, Mild (Pain Scale 1-3) Al Hydroxide/Mg Hydroxide (Magnesium Hydrox/Alum Hydrox 30 Ml Oral.Susp) 30 ml PO Q4H PRN PRN Reason: Heartburn/Nausea Benzocaine (Throat Lozenge, Medicated Lozenge) 1 lozenge MUCOUS MEM Q2H PRN PRN Reason: Sore Throat Last Admin: 09/11/23 09:37 Dose: 1 lozenge Documented By: BECKY Dexamethasone Sodium Phosphate (Dexamethasone Sod Phosphate 4 Mg/Ml Vial) 6 mg IVPUSH DAILY [facility] Stop: 09/19/23 09:01 Last Admin: 09/11/23 08:58 Dose: 6 mg Documented By: BECKY Dextrose (Dextrose 50 % 25 Gm/50 Ml Syringe) 25 gm IVPUSH Q15M PRN; Protocol PRN Reason: per Hypoglycemia Standing Ord. Docusate Sodium (Docusate Sodium 100 Mg Capsule) 100 mg PO BID [facility] Last Admin: 09/11/23 09:00 Dose: Not Given Documented By: BECKY Non-Admin Reason: Patient Refused Doxycycline Monohydrate (Doxycycline Monohydrate 100 Mg Capsule) 100 mg PO BID [facility] Last Admin: 09/11/23 08:59 Dose: 100 mg Documented By: BECKY Ferrous Sulfate (Ferrous Sulfate 324 Mg Tablet.) 324 mg PO BIDWM [facility] Last Admin: 09/11/23 08:59 Dose: 324 mg Documented By: BECKY Glucose (Glucose Gel 15 Gm Gel..Gram.) 15 gm PO Q15M PRN; Protocol PRN Reason: per Hypoglycemia Standing Ord. Remdesivir 100 mg/ Sodium (Chloride) 230 mls @ 115 mls/hr IV Q24H [facility] Stop: 09/14/23 09:59 Last Admin: 09/11/23 09:44 Dose: 115 mls/hr Documented By: BECKY Ceftriaxone Sodium 1 gm/ (Sodium Chloride) 50 mls @ 100 mls/hr IV Q24H [facility] Last Infusion: 09/11/23 09:47 Dose: Infused Documented By: BECKY Insulin Human Lispro (Insulin Lispro 100 Unit/Ml 3 Ml Vial) 0 unit SUBCUT QIDACHS [facility]; Protocol Last Admin: 09/11/23 12:04 Dose: 4 unit Documented By: BECKY Levothyroxine Sodium (Levothyroxine Sodium 88 Mcg Tablet) 88 mcg PO DAILY@0600 [facility] Last Admin: 09/11/23 06:25 Dose: 88 mcg Documented By: HAILEE Melatonin (Melatonin 3 Mg Tablet) 6 mg PO BEDTIME PRN PRN Reason: Insomnia Nitroglycerin (Nitroglycerin 0.4 Mg Tab.Subl) 0.4 mg SUBLINGUAL Q5MX3 PRN PRN Reason: Chest Pain Ondansetron HCl (Ondansetron Hcl 4 Mg/2 Ml Vial) 4 mg IVPUSH Q8H PRN PRN Reason: Nausea and Vomiting Oseltamivir Phosphate (Oseltamivir Phosphate 30 Mg Capsule) 30 mg PO Q12H [facility] Last Admin: 09/11/23 12:04 Dose: 30 mg Documented By: BECKY Pantoprazole Sodium (Pantoprazole Sodium 40 Mg/10 Ml Vial) 40 mg IVPUSH BID@0630,1630 [facility] Last Admin: 09/11/23 06:25 Dose: 40 mg Documented By: HAILEE Sodium Chloride (0.9 % Sodium Chloride Flush 3 Ml Syringe) 3 ml IVFLUSH QSHIFT [facility] Last Admin: 09/11/23 08:59 Dose: 3 ml Documented By: BECKY Vitamin D (Cholecalciferol (Vitamin D3) 25 Mcg Tablet) 50 mcg PO DAILY [facility] Last Admin: 09/11/23 08:58 Dose: 50 mcg Documented By: BECKY Labs 09/11/23 06:51 09/11/23 06:51 Labs: Laboratory Results - last 24 hr 09/10/23 09/10/23 09/10/23 08:05 16:28 20:06 MCV MCH MCHC RDW Plt Count MPV Absolute Nucleated RBC Nucleated RBC % (auto) Anion Gap Estim Creat Clear Calc Estimated GFR POC Glucose 235 H 172 H Random Glucose Calcium Total Bilirubin AST ALT Alkaline Phosphatase Total Protein Albumin Blood Type O Positive Antibody Screen NEGATIVE Crossmatch See Detail 09/11/23 09/11/23 09/11/23 06:51 08:23 10:42 MCV 95.7 D MCH 30.4 MCHC 31.7 RDW 17.7 H Plt Count 51 L MPV 10.3 Absolute Nucleated RBC 0.200 H Nucleated RBC % (auto) 9.8 H Anion Gap 15 Estim Creat Clear Calc 69.3 Estimated GFR > 60 POC Glucose 240 H 201 H Random Glucose 220 H Calcium 7.0 L D Total Bilirubin 0.6 AST 91 H ALT 29 Alkaline Phosphatase 192 H Total Protein 5.6 L Albumin 3.1 L Blood Type Antibody Screen Crossmatch Microbiology Microbiology Results: Microbiology 09/09/23 Unknown Urine Culture - Preliminary Urine clean catch - Urine medrano top Culture in progress. 09/09/23 20:35 Blood Culture - Preliminary Blood - Venous No growth after 24 hours. 09/09/23 20:33 Blood Culture - Preliminary Blood - Venous No growth after 24 hours. 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 [NOT on home hospice], hypothyroidism, GERD, recent Covid-19 diagnosis presented with dyspnea + hypoxia admitted with hypoxia due to Covid-19 and influenza B and found to be profoundly anemic Severe sepsis and acute hypoxic respiratory failure due to Covid-19 and influenza B infection sepsis resolved changed Paxlovid to remdesivir 09/10-09/14/23 dexamethasone 09/09-09/18/23 oseltamivir 09/09-09/13/23 given PCT elevation, will continue ceftriaxone + doxycycline to cover bacterial infection 09/10- [got ceftriaxone + azithromycin in ED 09/09] wean O2 as tolerated [currently on 2L via NC] anemia, iron deficiency FOBT negative. s/p Transfused 2u PRBCs with good elevated in HH IV PPI GI consult. Iron repletion, iron 8. Tn-I elevation flat, likely due to demand from sepsis/infection hypothyroidism levothyroxine Prostate cancer with mets to bone and brain palliative radiation tx, last 2 weeks ago VTE ppx SCDs, d/c LMWH due to anemia Attending Dr. Cope DNR In my clinical judgment, the patient requires continued inpatient hospitalization for the following reasons: hypoxia, transfusion Total time managing care of this patient today: 50 minutes. Quality Stroke Does the patient have a stroke diagnosis?: No VTE Prior VTE?: No VTE Risk Level:: Medical - moderate - high VTE Device Contraindication: N/A - Device Ordered VTE Drug Contraindication: N/A - Med Ordered
[2023-09-11 15:39] LABS: Glucose, Whole Blood 198 mg/dL (60-115)
[2023-09-11 16:00] VITALS: BP 132/72; PULSE 74; RESP 18; TEMP 36; O2SAT 97
[2023-09-11 20:00] VITALS: BP 124/66; PULSE 102; RESP 20; TEMP 37.3; O2SAT 95
[2023-09-11 20:42] LABS: Glucose, Whole Blood 196 mg/dL (60-115)
[2023-09-11] MEDS: Docusate Sodium 100 MG CAPSULE PO (21:35)
[2023-09-11 23:45] VITALS: BP 110/84; PULSE 74; RESP 20; TEMP 36.3; O2SAT 95
[2023-09-12] VITALS (8 sets, daily range): BP systolic 119–173; BP diastolic 66–79; PULSE 63–73; RESP 17–20; TEMP 35.7–36.9; O2SAT 91–98
[2023-09-12] MEDS: Oseltamivir Phosphate 30 MG CAPSULE PO ×2 (03:31→12:19)
[2023-09-12] MEDS: Throat Lozenge, Medicated LOZENGE 1 LOZENGE MUCOUS MEM (06:41)
[2023-09-12] MEDS: Levothyroxine Sodium 88 MCG TABLET PO (06:41)
[2023-09-12] MEDS: Pantoprazole Sodium 40 MG/10 ML VIAL IVPUSH ×2 (06:43→17:05)
[2023-09-12 08:03] LABS: Glucose, Whole Blood 213 mg/dL (60-115)
[2023-09-12] MEDS: Insulin Lispro 100 UNIT/ML 3 ML VIAL SUBCUT ×4 (08:26→20:36)
[2023-09-12] MEDS: dexAMETHasone sod phosphate 4 MG/ML VIAL 6 MG IVPUSH (08:27)
[2023-09-12] MEDS: Cholecalciferol (Vitamin D3) 25 MCG TABLET 50 MCG PO (08:27)
[2023-09-12] MEDS: Doxycycline Monohydrate 100 MG CAPSULE PO ×2 (08:27→20:35)
[2023-09-12] MEDS: Ferrous Sulfate 324 MG TABLET.DR PO ×2 (08:27→17:05)
[2023-09-12] MEDS: Docusate Sodium 100 MG CAPSULE PO ×2 (08:27→20:35)
[2023-09-12] MEDS: 0.9 % Sodium Chloride Flush 3 ML SYRINGE IVFLUSH ×2 (08:28→17:05)
[2023-09-12] MEDS: cefTRIAXone sodium 1 GM in 0.9 % Sodium Chloride 50 ML IV (08:28)
[2023-09-12] MEDS: Remdesivir 100 MG in 0.9 % Sodium Chloride 230 ML 115 MG IV (09:57)
--- NOTE | 2023-09-12 11:01 | P.PNIM_ITS ---
Subjective Subjective Date of Service: 09/12/23 Interval History: C/o dyspnea, dry cough, sore throat No chest pain or sob Review of Systems Review of Systems: Yes all other systems are reviewed and are negative Physical Exam 2 Vital Signs: Vital Signs: Last Vital Signs Temp 98.4 F 09/12/23 07:39 Pulse 73 09/12/23 08:31 Resp 18 09/12/23 07:39 BP 127/66 09/12/23 08:31 Pulse Ox 93 09/12/23 08:31 O2 Del Method Nasal Cannula 09/12/23 07:39 O2 Flow Rate 2 09/12/23 07:39 BMI result Body Mass Index 24.9 Appearing in no acute distress lung sounds are clear to auscultation heart regular rate rhythm, clear S1, S2 positive bowel sounds, abdomen is soft, nontender neuro patient is alert x3, no focal deficits Objective Data Active Medications Acetaminophen (Acetaminophen 325 Mg Tablet) 650 mg PO Q6H PRN PRN Reason: Pain, Mild (Pain Scale 1-3) Al Hydroxide/Mg Hydroxide (Magnesium Hydrox/Alum Hydrox 30 Ml Oral.Susp) 30 ml PO Q4H PRN PRN Reason: Heartburn/Nausea Benzocaine (Throat Lozenge, Medicated Lozenge) 1 lozenge MUCOUS MEM Q2H PRN PRN Reason: Sore Throat Last Admin: 09/12/23 06:41 Dose: 1 lozenge Documented By: CHRISTIANO Dexamethasone Sodium Phosphate (Dexamethasone Sod Phosphate 4 Mg/Ml Vial) 6 mg IVPUSH DAILY [facility] Stop: 09/19/23 09:01 Last Admin: 09/12/23 08:27 Dose: 6 mg Documented By: NEY Dextrose (Dextrose 50 % 25 Gm/50 Ml Syringe) 25 gm IVPUSH Q15M PRN; Protocol PRN Reason: per Hypoglycemia Standing Ord. Docusate Sodium (Docusate Sodium 100 Mg Capsule) 100 mg PO BID [facility] Last Admin: 09/12/23 08:27 Dose: 100 mg Documented By: NEY Doxycycline Monohydrate (Doxycycline Monohydrate 100 Mg Capsule) 100 mg PO BID [facility] Last Admin: 09/12/23 08:27 Dose: 100 mg Documented By: NEY Ferrous Sulfate (Ferrous Sulfate 324 Mg Tablet.) 324 mg PO BIDWM [facility] Last Admin: 09/12/23 08:27 Dose: 324 mg Documented By: NEY Glucose (Glucose Gel 15 Gm Gel..Gram.) 15 gm PO Q15M PRN; Protocol PRN Reason: per Hypoglycemia Standing Ord. Remdesivir 100 mg/ Sodium (Chloride) 230 mls @ 115 mls/hr IV Q24H [facility] Stop: 09/14/23 09:59 Last Admin: 09/12/23 09:57 Dose: 115 mls/hr Documented By: NEY Ceftriaxone Sodium 1 gm/ (Sodium Chloride) 50 mls @ 100 mls/hr IV Q24H [facility] Last Infusion: 09/12/23 09:48 Dose: Infused Documented By: NEY Insulin Human Lispro (Insulin Lispro 100 Unit/Ml 3 Ml Vial) 0 unit SUBCUT QIDACHS [facility]; Protocol Last Admin: 09/12/23 08:26 Dose: 4 unit Documented By: NEY Levothyroxine Sodium (Levothyroxine Sodium 88 Mcg Tablet) 88 mcg PO DAILY@0600 [facility] Last Admin: 09/12/23 06:41 Dose: 88 mcg Documented By: CHRISTIANO Melatonin (Melatonin 3 Mg Tablet) 6 mg PO BEDTIME PRN PRN Reason: Insomnia Nitroglycerin (Nitroglycerin 0.4 Mg Tab.Subl) 0.4 mg SUBLINGUAL Q5MX3 PRN PRN Reason: Chest Pain Ondansetron HCl (Ondansetron Hcl 4 Mg/2 Ml Vial) 4 mg IVPUSH Q8H PRN PRN Reason: Nausea and Vomiting Oseltamivir Phosphate (Oseltamivir Phosphate 30 Mg Capsule) 30 mg PO Q12H [facility] Last Admin: 09/12/23 03:31 Dose: 30 mg Documented By: CHRISTIANO Pantoprazole Sodium (Pantoprazole Sodium 40 Mg/10 Ml Vial) 40 mg IVPUSH BID@0630,1630 [facility] Last Admin: 09/12/23 06:43 Dose: 40 mg Documented By: CHRISTIANO Sodium Chloride (0.9 % Sodium Chloride Flush 3 Ml Syringe) 3 ml IVFLUSH QSHIFT [facility] Last Admin: 09/12/23 08:28 Dose: 3 ml Documented By: NEY Vitamin D (Cholecalciferol (Vitamin D3) 25 Mcg Tablet) 50 mcg PO DAILY [facility] Last Admin: 09/12/23 08:27 Dose: 50 mcg Documented By: NEY Labs 09/11/23 06:51 09/11/23 06:51 Labs: Laboratory Results - last 24 hr 09/10/23 09/11/23 09/11/23 06:45 15:33 20:32 Smear Path Review POC Glucose 198 H 196 H 09/12/23 07:37 Smear Path Review POC Glucose 213 H Microbiology Microbiology Results: Microbiology 09/09/23 Unknown Urine Culture - Final Urine clean catch - Urine medrano top 09/09/23 20:35 Blood Culture - Preliminary Blood - Venous No growth after 48 hours. 09/09/23 20:33 Blood Culture - Preliminary Blood - Venous No growth after 48 hours. 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 [NOT on home hospice], hypothyroidism, GERD, recent Covid-19 diagnosis presented with dyspnea + hypoxia admitted with hypoxia due to Covid-19 and influenza B and found to be profoundly anemic Severe sepsis and acute hypoxic respiratory failure due to Covid-19 and influenza B infection sepsis resolved changed Paxlovid to remdesivir 09/10-09/14/23 dexamethasone 09/09-09/18/23 oseltamivir 09/09-09/13/23 given PCT elevation, will continue ceftriaxone + doxycycline to cover bacterial infection 09/10- [got ceftriaxone + azithromycin in ED 09/09] wean O2 as tolerated [currently on 2L via NC] anemia, iron deficiency FOBT negative. s/p Transfused 2u PRBCs with good elevated in HH IV PPI GI consult> conservative management rec, no need for endoscopic procedure at this time Iron repletion, iron 8. Tn-I elevation flat, likely due to demand from sepsis/infection hypothyroidism levothyroxine Prostate cancer with mets to bone and brain palliative radiation tx, last 2 weeks ago VTE ppx SCDs, d/c LMWH due to anemia Attending Dr. Cope DNR In my clinical judgment, the patient requires continued inpatient hospitalization for the following reasons: hypoxia, transfusion Total time managing care of this patient today: 50 minutes. Quality Stroke Does the patient have a stroke diagnosis?: No VTE Prior VTE?: No VTE Risk Level:: Medical - moderate - high VTE Device Contraindication: N/A - Device Ordered VTE Drug Contraindication: N/A - Med Ordered
[2023-09-12 11:32] LABS: Glucose, Whole Blood 216 mg/dL (60-115)
[2023-09-12 16:27] LABS: Glucose, Whole Blood 282 mg/dL (60-115)
[2023-09-12 20:10] LABS: Glucose, Whole Blood 266 mg/dL (60-115)
[2023-09-13] MEDS: Oseltamivir Phosphate 30 MG CAPSULE PO ×2 (00:53→12:12)
[2023-09-13] MEDS: 0.9 % Sodium Chloride Flush 3 ML SYRINGE IVFLUSH ×3 (00:53→15:59)
[2023-09-13 03:16] VITALS: BP 119/65; PULSE 60; RESP 18; TEMP 36.1; O2SAT 94
[2023-09-13] MEDS: Levothyroxine Sodium 88 MCG TABLET PO (05:48)
[2023-09-13] MEDS: Pantoprazole Sodium 40 MG/10 ML VIAL IVPUSH (05:49)
[2023-09-13 07:40] VITALS: BP 113/59; PULSE 73; RESP 20; TEMP 36.3; O2SAT 97
[2023-09-13 07:58] LABS: Glucose, Whole Blood 221 mg/dL (60-115)
[2023-09-13] MEDS: Doxycycline Monohydrate 100 MG CAPSULE PO (08:40)
[2023-09-13] MEDS: Docusate Sodium 100 MG CAPSULE PO (08:40)
[2023-09-13] MEDS: Remdesivir 100 MG in 0.9 % Sodium Chloride 230 ML 115 MG IV (08:40)
[2023-09-13] MEDS: Cholecalciferol (Vitamin D3) 25 MCG TABLET 50 MCG PO (08:40)
[2023-09-13] MEDS: Ferrous Sulfate 324 MG TABLET.DR PO (08:41)
[2023-09-13] MEDS: cefTRIAXone sodium 1 GM in 0.9 % Sodium Chloride 50 ML IV (08:41)
[2023-09-13] MEDS: Insulin Lispro 100 UNIT/ML 3 ML VIAL SUBCUT ×2 (08:41→12:12)
[2023-09-13] MEDS: dexAMETHasone sod phosphate 4 MG/ML VIAL 6 MG IVPUSH (08:41)
[2023-09-13 11:07] VITALS: BP 134/72; PULSE 75; RESP 20; TEMP 36.5; O2SAT 97
[2023-09-13 11:27] LABS: Glucose, Whole Blood 248 mg/dL (60-115)
--- NOTE | 2023-09-13 12:10 | P.DS_ITS ---
DS: Providers Provider Date of Service: 09/13/23 Date of admission: 09/09/23 23:17 Primary care physician: Héctor Perla MD Consults: 09/10/23 07:40 Consult to Gastroenterology Routine Consulting Provider: Alex Lundy Reason for consultation: Severe anemia, FOB T pending DS: Diagnosis Discharge Diagnosis (1) Influenza B: Status: Acute DS: Summary Hospital Course Hospital Course: History and physical as per admitting provider. 82 year old white male with PMH of metastatic prostate cancer (currently on home hospice), hypothyroidism, GERD and recent diagnosis of COVID-19 infection (has had 2 days of Paxlovid) presents to the emergency room complaining of progressive weakness , sore throat, wet cough, dizziness, nausea & vomiting with decreased oral intake since yesterday. He also reports a fall yesterday after his legs got weak and gave out. He denies any associated chest pain or shortness of breath. When EMS arrived at scene, they found that he was hypoxic with oxygen saturation of 84% on room air and so they placed him on 4L of supplemental oxygen with improvement in his oxygenation to 95%. Initial work up in the emergency room was notable for a positive influenza B infection , pancytopenia, elevated high sensitivity troponin I (137.5 ng/L), elevated lactic acid (2.4) and hyperglycemia with a blood sugar of 229. He was started on IV fluids, decadron and empiric A zithromycin and Ceftriaxone and admission requested for continued care. 83-year-old man treated for severe sepsis, acute respiratory failure with hypoxemia, COVID-19, influenza B and elevated troponin. He had initially met criteria with fever, tachycardia tachypnea and increased lactic acid and likely was related to COVID-19 and influenza B. He was treated with Paxil of id and started on Tamiflu. He completed treatment with both. He was also on Decadron 6 mg daily and has 3 more doses to go and he will complete at home. Initially he was 84% on room air, treated with oxygen supplementation. He had a home oxygen evaluation and did not qualify, remained above 93% on ra. He also an elevated troponin which was likely reactive from stress from the COVID and flu with no treatment necessary. Plan is for patient to return home with family. Hypothyroidism. Continue levothyroxine Hyperlipidemia. Continue statin Diabetes mellitus. Continue medications GERD. Continue PPI Time Attestation Discharge coordination time: Greater than 30 minutes Quality: Safe Use of Opioids Does Pt have an Active Cancer Diagnosis on the Problem List?: No Quality: Stroke Does the patient have a stroke diagnosis?: No Physical Exam Vital Signs: Vital Signs: Last Vital Signs Temp 97.7 F 09/13/23 11:07 Pulse 75 09/13/23 11:07 Resp 20 09/13/23 11:07 BP 134/72 09/13/23 11:07 Pulse Ox 97 09/13/23 11:07 O2 Del Method Nasal Cannula 09/13/23 11:07 O2 Flow Rate 2 09/13/23 11:07 BMI result Body Mass Index 24.9 Appearing in no acute distress head is normocephalic atraumatic eyes pupils are PERRLA sclera is anicteric mouth throat mucous membranes are intact and moist neck is supple no lymphadenopathy, no JVD noted lung sounds are clear to auscultation heart regular rate rhythm, clear S1, S2 positive bowel sounds, abdomen is soft, nontender neuro patient is alert x3, no focal deficits DS: Data Data Completed and Pending Completed studies during hospitalization [Text1]: Procedures Replacement of Right Knee Joint with Synthetic Substitute, Uncemented, Open Approach (12/14/21) Labs on day of discharge: Laboratory Results - last 24 hr 09/12/23 09/12/23 09/13/23 16:23 20:03 07:42 POC Glucose 282 H 266 H 221 H 09/13/23 11:08 POC Glucose 248 H Preliminary micro results at discharge 09/09/23 20:35 Blood Culture - Preliminary Blood - Venous No growth after 48 hours. 09/09/23 20:33 Blood Culture - Preliminary Blood - Venous No growth after 48 hours. Discharge Plan Discharge Anticipated Discharge Date/Time: 09/13/23 11:38 Patient Disposition: Home, Self-Care Discharge Diagnosis: Severe sepsis Acute hypoxic respiratory failure COVID-19 Influenza B Elevated troponin Referrals: Beni THOMPSON [Outside] - 1 Week Héctor Perla MD [Primary Care Provider] - 1 Week Discharge Medications: New dexamethasone 6 mg tablet 6 mg PO DAILY Qty: 3 0RF Continued Boost Glucose Control 0.06-1.1 gram-kcal/mL liquid 1 ea PO BID Qty: 64545 2RF atorvastatin 80 mg tablet 80 mg PO BEDTIME 90 Days Qty: 90 3RF meclizine [Dramamine (meclizine)] 25 mg tablet 25 mg PO BID PRN (Reason: dizziness) Qty: 30 1RF PreserVision AREDS-2 250-90-40-1 mg Capsule 1 tab PO QAM levothyroxine 88 mcg tablet 88 mcg PO DAILY@0600 glipizide 2.5 mg tablet extended release 24hr 2.5 mg PO BEDTIME 90 Days Qty: 90 3RF cholecalciferol (vitamin D3) 50 mcg (2,000 unit) capsule 50 mcg PO DAILY ondansetron 8 mg tablet,disintegrating 8 mg PO Q8H PRN (Reason: nausea and vomiting) Qty: 30 2RF omeprazole 20 mg capsule,delayed release(DR/EC) 20 mg PO DAILY Discontinued Paxlovid 150-100 mg Tablets,Dose Pack See Rx Instructions .ROUTE .COMPLEX Qty: 1 0RF Rx Instructions: take ONE 150 mg tablet of nirmatrelvir with ONE 100 mg tablet of ritonavir twice daily for 5 days Discharge Orders: Discharge Order (Routine); Ordered 09/13/23 Ordered By: Kalyani Patel Diet: Advance to usual diet Activity on Discharge: As tolerated Stand Alone Forms: Patient Portal Discharge page Care Plan Goals: Complete 3 more days of Decadron You have completed treatment of Tamiflu You have completed treatment of Paxlovid Health Concerns: Severe sepsis Acute hypoxic respiratory failure COVID-19 Influenza B Elevated troponin Plan of Treatment: Follow-up with primary care provider as needed Take all medications as prescribed Assessment: See discharge summary
[2023-09-13 13:22] VITALS: PULSE 108; PULSE 110; PULSE 86; PULSE 88; O2SAT 92; O2SAT 93
[2023-09-13 15:14] VITALS: BP 112/58; PULSE 70; RESP 20; TEMP 36.6; O2SAT 93
--- NOTE | 2023-09-13 15:26 | MHC.CM.PN ---
Second IMM 09/13/23 Pt has been medically cleared for DC. His son will pick him up to transport home, services to resume from [facility].
[2023-09-13] MEDS: Heparin Sodium,Porcine Flush 50 UNITS/5 ML SYRINGE IVFLUSH (15:59)
== END 2023-09-13 17:00 | disposition home health service (06) | DRG 871 ==
LOC: HO.ED 22:15 → HO.EDOVER 23:41 → HO.IMC 09-10 03:44
PROVIDERS: Family Medicine; Admitting Provider Internal Medicine; Emergency Provider Emergency Medicine; PCP Internal Medicine; Visit Provider Nurse Practitioner Acute Care
DX: A41.89 Other specified sepsis (principal); J96.01 Acute respiratory failure with hypoxia; U07.1 COVID-19; C79.51 Secondary malignant neoplasm of bone; D61.818 Other pancytopenia; C79.31 Secondary malignant neoplasm of brain; Z66 Do not resuscitate; D50.9 Iron deficiency anemia, unspecified; J10.1 Influenza due to other identified influenza virus with other respiratory manifestations; R65.20 Severe sepsis without septic shock; E03.9 Hypothyroidism, unspecified; R73.9 Hyperglycemia, unspecified; C61 Malignant neoplasm of prostate; Z87.891 Personal history of nicotine dependence; Z79.84 Long term (current) use of oral hypoglycemic drugs; Z79.890 Hormone replacement therapy; Z79.899 Other long term (current) drug therapy
CPT/HCPCS: 36415; 71045; 80048; 80053; 80061; 81001; 81003; 82272; 82607; 82728; 82746; 82947; 83540; 83605; 83615; 83735; 84145; 84443; 84484; 85007; 85027; 85045; 85610; 86140; 86850; 86900; 86901; 86923; 87040; 87086; 87502; 87635; 93005; 93306; 93356; 97162; 99285; C9113; J0248; J0456; J0696; J1100; J1642; J1650; J2405; P9016; Q9957

== ENCOUNTER → 2023-09-09 19:33 | Outpatient (BNV) | payer MEDICARE, BC, SELFPAY | PROVIDERS: Admitting Provider Internal Medicine; Emergency Provider Emergency Medicine; PCP Internal Medicine; Visit Provider Internal Medicine Cardiovascular Disease | DX: R00.0 Tachycardia, unspecified (principal); I49.1 Atrial premature depolarization | CPT/HCPCS: 93010 ==

== ENCOUNTER 2023-09-09 23:17 | Outpatient (BNV) | payer MEDICARE, BC, SELFPAY | END 2023-09-11 07:00 | PROVIDERS: Admitting Provider Internal Medicine; Emergency Provider Emergency Medicine; PCP Internal Medicine; Visit Provider Internal Medicine Cardiovascular Disease | DX: I35.1 Nonrheumatic aortic (valve) insufficiency (principal) | CPT/HCPCS: 93306 ==

== ENCOUNTER → 2023-09-09 23:17 | Outpatient (BNV) | payer MEDICARE, BC, SELFPAY | PROVIDERS: Admitting Provider Internal Medicine; Emergency Provider Emergency Medicine; PCP Internal Medicine; Visit Provider Internal Medicine | DX: J10.1 Influenza due to other identified influenza virus with other respiratory manifestations (principal); J96.01 Acute respiratory failure with hypoxia | CPT/HCPCS: 99223; 99232; 99233; 99239 ==

== ENCOUNTER → 2023-09-09 23:17 | Outpatient (BNV) | payer MEDICARE, BC, SELFPAY | PROVIDERS: Admitting Provider Internal Medicine; Emergency Provider Emergency Medicine; PCP Internal Medicine; Visit Provider Internal Medicine Gastroenterology | DX: D64.9 Anemia, unspecified (principal); Z86.010 Personal history of colon polyps | CPT/HCPCS: 99222 ==

== ENCOUNTER 2023-11-15 16:33 | Outpatient (REF) | payer MEDICARE, BC, SELFPAY ==
--- NOTE | ~2023-11-15 | XR_ITS ---
EXAMINATION: XR SHOULDER, LEFT CLINICAL INFORMATION: Pain; history of prostate cancer. COMPARISON: CT chest dated 03/14/2021. TECHNIQUE: AP external rotation, Grashey, scapular Y, and axillary views of the left shoulder. FINDINGS: Bony alignment is normal. There are multi-focal sclerotic deposits again seen within the left humeral head, the left scapula, the left clavicle and multiple left ribs. No fracture of pathologic bone is seen. There is very mild osteoarthritic change of the glenohumeral and acromioclavicular joints. There is mild calcific tendinitis of the left rotator cuff insertion. No left pneumothorax is seen. XR/XR shoulder LT min 2V IMPRESSION: 1. Multiple sclerotic deposits are noted within the left shoulder girdle and the left rib cage, consistent with metastatic prostate carcinoma. This can be more fully evaluated with nuclear bone scan, if clinically indicated. 2. No fracture or pathologic bone is seen. 3. There is calcific tendinitis of the left rotator cuff cuff insertion. 4. There is very mild osteoarthritic change of the left glenohumeral and acromioclavicular joints.
--- NOTE | ~2023-11-15 | US_ITS ---
EXAMINATION: US VENOUS WITH DOPPLER UPPER EXTREMITY, LEFT CLINICAL INFORMATION: Left arm cool to touch COMPARISON: None available. TECHNIQUE: Ultrasound of the upper extremity is performed using compression sonography and color and pulse Doppler flow with assessment of augmentation of flow. There is also imaging and Doppler assessment of the jugular and subclavian veins. Spectral analysis with color-flow imaging is performed. FINDINGS: The left internal jugular, subclavian axillary brachial, basilic and cephalic veins are patent. Radial and ulnar veins in the forearm are patent and there is no evidence of DVT. US/US venous duplex UE LT IMPRESSION: No DVT demonstrated in the left upper extremity.
== END 2023-11-15 16:34 | disposition home or self-care (01) ==
LOC: HO.US 16:33
PROVIDERS: PCP Internal Medicine; Visit Provider Internal Medicine
DX: M79.602 Pain in left arm (principal); M79.89 Other specified soft tissue disorders; C61 Malignant neoplasm of prostate; C79.51 Secondary malignant neoplasm of bone; M25.512 Pain in left shoulder; M25.511 Pain in right shoulder
CPT/HCPCS: 73030; 93971

== ENCOUNTER 2023-11-28 10:00 | Outpatient (AMB) | payer MEDICARE, BC, SELFPAY ==
--- NOTE | 2023-11-28 10:06 | MHC.OFFVIS ---
Intake Vital Signs 11/28/23 10:08 Height 5 ft 9 in BMI Reason not done Patient refused/unable BP 98/54 L Blood Pressure Location Lt brachial Pulse 102 H Intake Visit Reasons: 1 yr f/u after echo Intake Note: 1 year follow up Creative Lead Required: No Accompanied by: Son Allergies No Known Allergies Allergy (Verified 11/28/23 10:08) Medication List - Last Reconciled 11/28/23 by Raul Aguayo MD atorvastatin 80 mg PO BEDTIME 90 days cholecalciferol (vitamin D3) 50 mcg PO DAILY dexamethasone 6 mg PO DAILY docusate sodium (Laxa Basic) 100 mg PO DAILY dronabinol (Marinol) 5 mg PO BEDTIME glipizide ER 2.5 mg PO BEDTIME 90 days levothyroxine 88 mcg PO DAILY@0600 meclizine (Dramamine (meclizine)) 25 mg PO BID PRN nut.tx.gluc intol,lf,soy-fiber 0.06-1.1 gram-kcal/mL (Boost Glucose Control) 1 ea PO BID omeprazole 20 mg PO DAILY ondansetron 8 mg PO Q8H PRN vit C,W-Dh-fpirf-lutein-zeaxan 250-90-40-1 mg (PreserVision AREDS-2) 1 tab PO QAM HPI HPI Comments History of Present Illness Details Nixon returns for follow-up. He has history of aortic regurgitation mild ascending aortic dilatation. Overall, no specific concerns from cardiac. He seems be doing fine that regard. Recent hospitalization for respiratory failure when he apparently had COVID as well as flu. He is slowly recovering from that. He has prostate cancer history including brain/bone Mets. 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 Mother No problems noted. Social History Household Members: Spouse Housing: House Are you a primary lpn care manager to a significant other at home: Yes (, bedridden ,Alzheimer's, on Hospice) Do you presently have visiting nurse or other home services: Yes ([facility], palliative care) Alcohol intake: current Alcohol intake frequency: holidays/special occasions only Patient Tobacco Use Status: Former Tobacco user Quit Date: Tobacco use type: Cigarette e-Cigarette/Vaping Use: Never Used Second Hand Smoke Exposure: Yes Advance Directives Date on File: 05/10/22 service: No Current occupational status: retired Cognitive needs: No Hearing needs: No Vision needs: Yes Review of Systems Const Denies weakness ENT Denies dizziness Card Denies syncope, Denies rapid heart rate, Denies pedal edema, Denies edema, Denies leg edema, Denies lightheadedness, Denies palpitations, Denies dyspnea, Denies dyspnea on exertion and Denies orthopnea Resp Denies cough, Denies dyspnea and Denies dyspnea on exertion GI Denies hematochezia and Denies change in stool character Musc Denies abnormal gait, Denies muscle cramps, Denies muscle weakness, Denies numbness, Denies radiating pain into limb and Denies tingling Neuro Denies abnormal gait, Denies dizziness, Denies syncope, Denies numbness, Denies tingling and Denies weakness Endo Denies palpitations Physical Exam Vital Signs: Last Vital Signs Pulse 102 H 11/28/23 10:08 BP 98/54 L 11/28/23 10:08 Const General: comfortable and no acute distress Orientation/consciousness: patient oriented x3 HEENT Other: Unremarkable Head: Yes normal to inspection Neck Neck: Yes normal visual inspection Chest Chest palpation & inspection: normal inspection of the chest Resp Auscultation: clear to auscultation bilaterally Cardio Palpation: normal PMI Heart sounds: S1 normal heart sound present, S2 normal heart sound present, no gallops, no murmurs and no rubs GI Palpation (GI): Soft to palpation Back/Spine/Pelvis Other: unremarkable Skin General skin exam: no rashes or lesions noted Neuro General: patient oriented x3 Extrem General: Yes normal to inspection Psych Mental Status: mental status grossly normal Assessment & Plan Assessment & Plan (1) Non-rheumatic aortic regurgitation: Code(s): I35.1 - Nonrheumatic aortic (valve) insufficiency (2) Atherosclerotic cardiovascular disease: Code(s): I25.10 - Atherosclerotic heart disease of [place] coronary artery without angina pectoris (3) Metastasis to brain: Code(s): C79.31 - Secondary malignant neoplasm of brain (4) Prostate cancer metastatic to bone: Code(s): C61 - Malignant neoplasm of prostate; C79.51 - Secondary malignant neoplasm of bone Plan In the most recent echocardiogram from 08/2023, LVEF 55%. Wall motion abnormalities described in the inferior wall. Mild aortic regurgitation. Ascending aortic size 3.7 cm. Myocardial perfusion imaging study 2019 had shown normal perfusion, without any evidence of ischemia or infarction. Prior study from 2016, 2011 were also unremarkable. However, based on the recent echocardiogram, suggestive of underlying coronary disease. He has a history of prostate cancer with brain as well as bone Mets and does not have any overt anginal-type symptoms at this time. Brain MRI from 04/24/2023 at [facility] shows multiple enhancing cerebellar lesions consistent with metastatic disease. Based on this, do not recommend any aggressive cardiac management. He already seems to be on statins that may be continued. He has anemia/thrombocytopenia and hence not likely suitable for aspirin. We will see him in the future as and when the need arises. Advised him to make appointment with Oncology as he has not seen them in a while. Discussed with family who came for appointment. Coding Level of Care Code Est Pt Level 4 (57442) Diagnoses Non-rheumatic aortic regurgitation I35.1 Atherosclerotic cardiovascular disease I25.10 Metastasis to brain C79.31 Prostate cancer metastatic to bone C61; C79.51
[2023-11-28 10:08] VITALS: BP 98/54; PULSE 102
== END 2023-11-28 10:23 | disposition home or self-care (01) ==
PROVIDERS: PCP Internal Medicine; Visit Provider Internal Medicine
DX: I35.1 Nonrheumatic aortic (valve) insufficiency (principal); I25.10 Atherosclerotic heart disease of native coronary artery without angina pectoris; C79.31 Secondary malignant neoplasm of brain; C61 Malignant neoplasm of prostate; C79.51 Secondary malignant neoplasm of bone
CPT/HCPCS: 99214

== ENCOUNTER → 2023-11-28 10:00 | Outpatient (BNVA) | payer MEDICARE, BC, SELFPAY | PROVIDERS: Visit Provider Internal Medicine | DX: I35.1 Nonrheumatic aortic (valve) insufficiency (principal); I25.10 Atherosclerotic heart disease of native coronary artery without angina pectoris; C79.31 Secondary malignant neoplasm of brain; C61 Malignant neoplasm of prostate; C79.51 Secondary malignant neoplasm of bone | CPT/HCPCS: 99212 ==

== ENCOUNTER 2023-12-12 15:40 | Outpatient (RCR) | payer MEDICARE, BC, SELFPAY ==
[2020-07-28 08:30] VITALS: BP 153/72; PULSE 85; RESP 20; TEMP 36.4; O2SAT 97
[2020-07-28 08:31] VITALS: BMI 30.8
[2020-07-28] MEDS: 0.9 % Sodium Chloride 500 ML 250 ML IVCONT (08:55)
[2020-07-28] MEDS: dexAMETHasone sod phosphate/NS 12 MG/50 ML PIGGYBACK 100 MG IV (08:56)
[2020-07-28] MEDS: ondansetron HCL/NS 16 MG/50 ML PIGGYBACK 200 MG IV (08:56)
[2020-07-28] MEDS: Famotidine/PF 20 MG/2 ML VIAL IVPUSH (08:56)
[2020-07-28] MEDS: diphenhydrAMINE HCL 25 MG TABLET PO (08:57)
--- NOTE | 2020-07-28 09:23 | P.PNHO_ITS ---
Medical Summary - Medical Summary Chief complaint: Right knee swelling and right shoulder pain Medical Summary: DIAGNOSIS: Mr. Morgan was diagnosed with prostate cancer in 2006. THERAPY: 1. He underwent radical retropubic prostatectomy with bilateral pelvic lymphadenectomy on March 31, 2007. 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 2. He underwent ERBT postoperatively in 2007 for a rising PSA. 3. He was diagnosed with metastatic disease, bony metastasis sometime in 2011 and has been on hormonal manipulation under the care of his urologist Dr. Oreilly. Repeat imaging: Restaging with a PET scan May 14, 2014 showed mild hypermetabolic activity in the right L2 pedicle SUV of 3.4, T11, T12 and T10 SUV of 5.28, and T5, T4 and T3 vertebrae with only residual sites of disease. No additional hypermetabolic activity in the skeleton, and no lymphadenopathy. Diffuse sclerotic lesions throughout cervical, dorsal, lumbar sacral spine, iliac bones and bilateral ribs consistent with old metastatic disease. PSA on May 02, 2014, 25.6 and total testosterone less than 1 ng/dL. 4. After oncology consultation in apr 2014, patient started Denosumab (Xgeva)120 mg subcu monthly, since June 02, 2014. 5. Because of rising PSA noted in July 2014 when it reggie 61, the patient was taken off Casodex. 6. The patient started Xtandi or enzalutamide at a dose of 160 mg once daily on October 14, 2014. 7. Started Xofigo (radium 223)dose of 55 KBq/ per kilo every 4 weeks for 6 doses on 04/05/16. 8. Received palliative radiotherapy to C2 vertebral body at [facility] in June 2017 because of increasing uptake on PET scan worrisome for metastasis. 9. He started zytiga Jul 2017 to Sep 2017. Discontinued for rising PSA. 10. He then received 6 cycles Taxotere from 10/25/17 to January 2018. MSI status on tumor, showed preserved expression of DNA mismatch repair proteins indicating lack of microsatellite instability. Patient?s genetic test result , extended my Risk dinner tick panel testing was negative. 11. Ketoconazole for 1 month apr/2017. 12. Was seen at [facility] by Dr. Jaqueline Ayala for second opinion as well as consideration of clinical trials, was recommended clinical trial with olaparib +/- Cederinib. If he decides against trial, options would be to reconsider Zytiga, chemotherapy with Cabazitaxel +/- Carboplatinum or Apalutamide. 13. Was on Apalutamide 240 mg once a day for about 3 months. Rising PSA. 14. Switched to Zytiga 1000 mg once a day with prednisone 5 mg b.i.d. from end of December 2018. 15. Discontinued 03/14/2019 because of rising PSA. 16. Started Cabazitaxel March 2019. Treated for Legionella pneumonia after cycle 1 Interval History Interval history: Patient is here in follow-up and scheduled treatment. He is feeling okay but reports swelling in his right knee which he noticed. There is no redness or pain. He did fall on his right knee about 3 months ago. He has chronic pain in his right shoulder and occasional numbness in his right little and ring finger. He denies any focal weakness or difficulty lifting the right arm above his head. He has mild chronic exertional shortness of breath. No chest pain, no dizziness, no palpitations, denies orthopnea or PND. No leg edema. No calf tenderness. He denies fever or chills. No cough or sputum production. 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 Surgical History: Surgical History (Last Updated 07/28/20 @ 09:25 by Mabel Gordillo RN) H/O hernia repair Smoking status: Former smoker Alcohol intake frequency: a few times a month Oncology Screenings - ECOG Performance Status ECOG Performance Status: 1 Home Medications and Allergies Current Medications: Current Medications Generic Name Dose Route Start Last Admin Trade Name Freq PRN Reason Stop Dose Admin Diphenhydramine HCl 25 mg 07/28/20 00:00 07/28/20 08:57 Diphenhydramine Hcl 25 Mg Tablet PO 07/28/20 23:59 25 mg ONCE RAIMUNDO Administration Famotidine 20 mg 07/28/20 00:00 07/28/20 08:56 Famotidine/Pf 20 Mg/2 Ml Vial IVPUSH 07/28/20 23:59 20 mg ONCE RAIMUNDO Administration Heparin Sodium (Porcine) 500 unit 07/28/20 00:00 Heparin Sodium,Porcine Flush 500 Unit/5 Ml Syringe IVFLUSH 07/28/20 23:59 ONCE [facility] Home Medications Medication Instructions Recorded Confirmed Type atorvastatin 1 tab PO DAILY 07/28/20 07/28/20 History denosumab [Xgeva] 120 mg SUBCUT Q4W 07/28/20 07/28/20 History desloratadine-pseudoephedrine 1 tab PO Q12H 07/28/20 07/28/20 History [Clarinex-D 12 HOUR] glipizide 1 tab PO QAM 07/28/20 07/28/20 History leuprolide (6 month) [Eligard (6 45 mg SUBCUT [id number] 07/28/20 07/28/20 History month)] levothyroxine 1 tab PO QAM 07/28/20 07/28/20 History omeprazole magnesium 20 mg PO DAILY 07/28/20 07/28/20 History prednisone 1 tab PO DAILY 07/28/20 07/28/20 History Allergies Allergy/AdvReac Type Severity Reaction Status Date / Time No Known Allergies Allergy Unverified 06/11/20 15:53 N.K.D.A. Allergy Unknown Uncoded 02/15/19 00:00 Exam Vital signs: Vital Signs Temp 97.6 F 07/28/20 08:30 Pulse 85 07/28/20 08:30 Resp 20 07/28/20 08:30 BP 153/72 H 07/28/20 08:30 Pulse Ox 97 07/28/20 08:30 Intake & Output 07/27/20 07/28/20 07/28/20 18:59 06:59 18:59 Other: Weight 95 kg 94.6 kg Weight 94.6 kg Body Mass Index 30.8 - Constitutional Present: no acute distress - Routine Neck Exam Present: full ROM. Absent: lymphadenopathy - Routine Respiratory Exam Present: CTAB - Routine Cardiovascular Exam Cardiovascular: Present: RRR, S1, S2 - Routine Abdominal Exam Present: soft - Routine Extremities Exam Present: full ROM, joint swelling. Absent: calf tenderness, pedal edema, tenderness - Routine Skin Exam Present: intact. Absent: cyanosis, erythema Data - Labs Labs: Vital Signs Temp Pulse Resp BP Pulse Ox 07/28/20 08:30 97.6 F 85 20 153/72 H 97 Intake and Output 07/27/20 07/28/20 07/28/20 22:59 06:59 14:59 Intake Total 100 / 100 Balance 100 / 100 Intake: Intake, IV Amount 100 / 100 dexAMETHasone sod phosphate/NS 50 / 50 12 mg In 50 ml @ 100 mls/hr IV ONCE RAIMUNDO Rx#:[id number] ondansetron HCL/NS 16 mg In 50 50 / 50 ml @ 200 mls/hr IV ONCE RAIMUNDO Rx# :[id number] Other: Weight 95 kg 94.6 kg Patient Weight 07/29/20 06:59 Weight 94.6 kg Progress Note: A/P (1) Prostate cancer metastatic to bone Status: Acute Assessment and plan: 1. This is a 79 year-old male with metastatic Prostate Cancer, Bone Metastases diagnosed in 2012. pMSI. BRCA 10/05 negative. He is on LHRH agonist q 6 months. On monthly denosumab. He started Cabazitaxel 20 milligram/meter squared Q 3 weeks along with prednisone 5 mg b.i.d.. in March 2019. Because of side effects his chemotherapy was changed to every 5 weeks. Denosumab 120 mg subcu Q 5 weeks. PSA is remaining stable between 18-19. 2. Hypothyroidism, he is on Synthroid. 3. 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 His cardiac workup was negative. He is doing much better on prednisone to 2.5 mg once a day. 4. Right knee swelling/right shoulder pain,. Right knee swelling is probably inflammation from a fall a few months ago. Mild joint effusion possible. No erythema or tenderness. X-ray has been ordered. He also has pain in his right shoulder which is probably related to his bone metastasis. X-ray has been ordered. 5. Chronic shortness of breath repeat check x-ray at this time. - Time Spent With Patient Total time spent is greater than 50% in coordination of care (as documented) at patient's floor/unit and/or counseling patient: 25 - 35 minutes
--- NOTE | 2020-07-28 11:25 | MHC.HEMONC ---
PT TOLERATED TX WELL. LABS DRAWN YESTERDAY-STABLE. PT C/O R KNEE SWELLING PT WILL GET XRAY AFTER TX TODAY
--- NOTE | 2020-07-28 11:50 | XR_ITS ---
EXAMINATION: CHEST X-RAY CLINICAL INFORMATION: Shortness of breath COMPARISON: Previous chest x-rays most recent March 2019 TECHNIQUE: Two-view chest FINDINGS: The cardiac silhouette does not appear enlarged. The thoracic aorta is tortuous and may be ectatic but appears unchanged. Hilar and mediastinal contours are unremarkable. The lungs are clear. There is no pleural effusion or pneumothorax. There is diffuse sclerotic bony metastatic disease. There are degenerative changes of the spine. XR/XR shoulder RT min 2V IMPRESSION: No evidence for acute disease in the chest. Sclerotic bone disease similar to previous exams. EXAMINATION: Right shoulder x-ray CLINICAL INFORMATION: Pain COMPARISON: None. TECHNIQUE: 4 views of the right shoulder FINDINGS: Bone alignment is normal. No fracture or dislocation is seen. The glenohumeral joint is normal. There is arthritis at the acromioclavicular joint. There is evidence of diffuse sclerotic bone disease. Soft tissues are unremarkable. IMPRESSION: Sclerotic bone disease. Arthritis at the acromioclavicular joint. EXAMINATION: Right knee x-ray CLINICAL INFORMATION: Pain COMPARISON: None. TECHNIQUE: 4 views right knee FINDINGS: Bone alignment is normal. No fracture or dislocation is seen. The joint spaces are normal. There is no joint effusion. IMPRESSION: Unremarkable exam.
--- NOTE | 2020-07-28 11:50 | XR_ITS ---
EXAMINATION: CHEST X-RAY CLINICAL INFORMATION: Shortness of breath COMPARISON: Previous chest x-rays most recent March 2019 TECHNIQUE: Two-view chest FINDINGS: The cardiac silhouette does not appear enlarged. The thoracic aorta is tortuous and may be ectatic but appears unchanged. Hilar and mediastinal contours are unremarkable. The lungs are clear. There is no pleural effusion or pneumothorax. There is diffuse sclerotic bony metastatic disease. There are degenerative changes of the spine. XR/XR knee RT 4V IMPRESSION: No evidence for acute disease in the chest. Sclerotic bone disease similar to previous exams. EXAMINATION: Right shoulder x-ray CLINICAL INFORMATION: Pain COMPARISON: None. TECHNIQUE: 4 views of the right shoulder FINDINGS: Bone alignment is normal. No fracture or dislocation is seen. The glenohumeral joint is normal. There is arthritis at the acromioclavicular joint. There is evidence of diffuse sclerotic bone disease. Soft tissues are unremarkable. IMPRESSION: Sclerotic bone disease. Arthritis at the acromioclavicular joint. EXAMINATION: Right knee x-ray CLINICAL INFORMATION: Pain COMPARISON: None. TECHNIQUE: 4 views right knee FINDINGS: Bone alignment is normal. No fracture or dislocation is seen. The joint spaces are normal. There is no joint effusion. IMPRESSION: Unremarkable exam.
--- NOTE | 2020-07-28 11:50 | XR_ITS ---
EXAMINATION: CHEST X-RAY CLINICAL INFORMATION: Shortness of breath COMPARISON: Previous chest x-rays most recent March 2019 TECHNIQUE: Two-view chest FINDINGS: The cardiac silhouette does not appear enlarged. The thoracic aorta is tortuous and may be ectatic but appears unchanged. Hilar and mediastinal contours are unremarkable. The lungs are clear. There is no pleural effusion or pneumothorax. There is diffuse sclerotic bony metastatic disease. There are degenerative changes of the spine. XR/XR chest 2V IMPRESSION: No evidence for acute disease in the chest. Sclerotic bone disease similar to previous exams. EXAMINATION: Right shoulder x-ray CLINICAL INFORMATION: Pain COMPARISON: None. TECHNIQUE: 4 views of the right shoulder FINDINGS: Bone alignment is normal. No fracture or dislocation is seen. The glenohumeral joint is normal. There is arthritis at the acromioclavicular joint. There is evidence of diffuse sclerotic bone disease. Soft tissues are unremarkable. IMPRESSION: Sclerotic bone disease. Arthritis at the acromioclavicular joint. EXAMINATION: Right knee x-ray CLINICAL INFORMATION: Pain COMPARISON: None. TECHNIQUE: 4 views right knee FINDINGS: Bone alignment is normal. No fracture or dislocation is seen. The joint spaces are normal. There is no joint effusion. IMPRESSION: Unremarkable exam.
--- NOTE | 2020-07-28 12:47 | MHC.HEMONCSW ---
pt remains independent, reports coping well. 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 denies new c/o at this time. continued education and support.
--- NOTE | 2020-08-26 14:15 | MHC.HEMONCMA ---
Patient called in questioninga an orthopedic referral for his knee. He
--- NOTE | 2020-08-26 14:18 | MHC.HEMONCMA ---
Patient called asking about a referral for an orthopedist for his right knee. Per Dr Gonzalez's note she did not refer him, she only ordered an X-ray. Patient was advised to call his PCP for this, he states he will and he will also talk to Dr Gonzalez about it on Monday when he is here for chemo.
[2020-09-01 08:35] VITALS: BP 141/77; PULSE 80; RESP 20; TEMP 36.1; O2SAT 98
[2020-09-01] MEDS: Famotidine/PF 20 MG/2 ML VIAL IVPUSH (09:30)
[2020-09-01] MEDS: ondansetron HCL/NS 16 MG/50 ML PIGGYBACK 200 MG IV (09:36)
[2020-09-01] MEDS: diphenhydrAMINE HCL 25 MG TABLET PO (09:37)
[2020-09-01] MEDS: dexAMETHasone sod phosphate/NS 12 MG/50 ML PIGGYBACK 200 MG IV (10:08)
--- NOTE | 2020-09-01 10:34 | MHC.HEMONCSW ---
PATIENT IS HERE FOR TREATMENT. REPORTS COPING WELL. ENJOYED THANKSGIVING BY USING [employer]. 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 DISCUSSED VARIOUS SUPPORTS. DENIES STRESS OR COMPLAINTS AT THIS TIME. PATIENT IS AWARE OF MY AVAILABILITY.
--- NOTE | 2020-09-01 12:13 | PM.HEMONCPN ---
Medical Summary - Medical Summary Date of Service: 09/01/20 Chief complaint: Worsening body pains Medical Summary: DIAGNOSIS: Mr. Morgan was diagnosed with prostate cancer in 2006. THERAPY: 1. He underwent radical retropubic prostatectomy with bilateral pelvic lymphadenectomy on March 31, 2007. He was staged as a T3a [place]'s 4 + 3 prostate adenocarcinoma. 2. He underwent ERBT postoperatively in 2007 for a rising PSA. 3. He was diagnosed with metastatic disease, bony metastasis sometime in 2011 and has been on hormonal manipulation under the care of his urologist Dr. Oreilly. Repeat imaging: Restaging with a PET scan May 14, 2014 showed mild hypermetabolic activity in the right L2 pedicle SUV of 3.4, T11, T12 and T10 SUV of 5.28, and T5, T4 and T3 vertebrae with only residual sites of disease. No additional hypermetabolic activity in the skeleton, and no lymphadenopathy. Diffuse sclerotic lesions throughout cervical, dorsal, lumbar sacral spine, iliac bones and bilateral ribs consistent with old metastatic disease. PSA on May 02, 2014, 25.6 and total testosterone less than 1 ng/dL. 4. After oncology consultation in apr 2014, patient started Denosumab (Xgeva)120 mg subcu monthly, since June 02, 2014. 5. Because of rising PSA noted in July 2014 when it reggie 61, the patient was taken off Casodex. 6. The patient started Xtandi or enzalutamide at a dose of 160 mg once daily on October 14, 2014. 7. Started Xofigo (radium 223)dose of 55 KBq/ per kilo every 4 weeks for 6 doses on 04/05/16. 8. Received palliative radiotherapy to C2 vertebral body at [facility] in June 2017 because of increasing uptake on PET scan worrisome for metastasis. 9. He started zytiga Jul 2017 to Sep 2017. Discontinued for rising PSA. 10. He then received 6 cycles Taxotere from 10/25/17 to January 2018. MSI status on tumor, showed preserved expression of DNA mismatch repair proteins indicating lack of microsatellite instability. Patient?s genetic test result , extended my Risk dinner tick panel testing was negative. 11. Ketoconazole for 1 month apr/2017. 12. Was seen at [facility] by Dr. Jaqueline Ayala for second opinion as well as consideration of clinical trials, was recommended clinical trial with olaparib +/- Cederinib. If he decides against trial, options would be to reconsider Zytiga, chemotherapy with Cabazitaxel +/- Carboplatinum or Apalutamide. 13. Was on Apalutamide 240 mg once a day for about 3 months. Rising PSA. 14. Switched to Zytiga 1000 mg once a day with prednisone 5 mg b.i.d. from end of December 2018. 15. Discontinued 03/14/2019 because of rising PSA. 16. Started Cabazitaxel March 2019. Treated for Legionella pneumonia after cycle 1 Interval History Interval history: Patient is here in follow-up and scheduled treatment. He is feeling okay but definitely notices more achiness overall. He has chronic pain in his right shoulder and occasional numbness in his right little and ring finger. He definitely feels that his disease is progressing. He denies any focal weakness or difficulty lifting the right arm above his head. He has mild chronic exertional shortness of breath. No chest pain, no dizziness, no palpitations, denies orthopnea or PND. 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 Surgical History: Surgical History (Last Updated 07/28/20 @ 09:25 by Mabel Gordillo RN) H/O hernia repair Smoking status: Former smoker Oncology Screenings - ECOG Performance Status ECOG Performance Status: 1 Home Medications and Allergies Current Medications: Current Medications Generic Name Dose Route Start Last Admin Trade Name Freq PRN Reason Stop Dose Admin Denosumab 120 mg 09/01/20 00:00 09/01/20 09:39 Denosumab 120 Mg/1.7 Ml Vial SUBCUT 09/01/20 23:59 120 mg ONCE RAIMUNDO Administration Diphenhydramine HCl 25 mg 09/01/20 00:00 09/01/20 09:37 Diphenhydramine Hcl 25 Mg Tablet PO 09/01/20 23:59 25 mg ONCE RAIMUNDO Administration Famotidine 20 mg 09/01/20 00:00 09/01/20 09:30 Famotidine/Pf 20 Mg/2 Ml Vial IVPUSH 09/01/20 23:59 20 mg ONCE RAIMUNDO Administration Heparin Sodium (Porcine) 500 unit 09/01/20 00:00 Heparin Sodium,Porcine Flush 500 Unit/5 Ml Syringe IVFLUSH 09/01/20 23:59 ONCE RAIMUNDO Ondansetron HCl 16 mg in 50 mls @ 200 mls/hr 09/01/20 00:00 09/01/20 09:55 Zofran IV 09/01/20 23:59 Infused ONCE RAIMUNDO Infusion Dexamethasone Sodium Phosphate 12 mg in 50 mls @ 100 mls/hr 09/01/20 00:00 09/01/20 10:25 Decadron IV 09/01/20 23:59 Infused ONCE RAIMUNDO Infusion Cabazitaxel 40 mg/ Sodium 254 mls @ 254 mls/hr 09/01/20 00:00 09/01/20 10:52 Chloride IV 09/01/20 23:59 254 mls/hr ONCE RAIMUNDO Administration Home Medications Medication Instructions Recorded Confirmed Type atorvastatin 1 tab PO DAILY 07/28/20 07/28/20 History denosumab [Xgeva] 120 mg SUBCUT Q4W 07/28/20 07/28/20 History desloratadine-pseudoephedrine 1 tab PO Q12H 07/28/20 07/28/20 History [Clarinex-D 12 HOUR] glipizide 1 tab PO QAM 07/28/20 07/28/20 History leuprolide (6 month) [Eligard (6 45 mg SUBCUT [id number] 07/28/20 07/28/20 History month)] levothyroxine 1 tab PO QAM 07/28/20 07/28/20 History omeprazole magnesium 20 mg PO DAILY 07/28/20 07/28/20 History prednisone 1 tab PO DAILY 07/28/20 07/28/20 History Allergies Allergy/AdvReac Type Severity Reaction Status Date / Time No Known Allergies Allergy Unverified 06/11/20 15:53 N.K.D.A. Allergy Unknown Uncoded 02/15/19 00:00 Exam Vital signs: Vital Signs Temp 97.0 F 09/01/20 08:35 Pulse 80 09/01/20 08:35 Resp 20 09/01/20 08:35 BP 141/77 H 09/01/20 08:35 Pulse Ox 98 12/08/20 08:35 Intake & Output 08/31/20 09/01/20 09/01/20 18:59 06:59 18:59 Intake Total 100 / 100 Balance 100 / 100 Intake: Intake, IV Amount 100 / 100 dexAMETHasone sod phosphate/NS 50 / 50 12 mg In 50 ml @ 100 mls/hr IV ONCE RAIMUNDO Rx#:[id number] ondansetron HCL/NS 16 mg In 50 50 / 50 ml @ 200 mls/hr IV ONCE RAIMUNDO Rx# :[id number] Other: Weight 94.6 kg 92.3 kg Weight 92.3 kg Body Mass Index 30.0 - Constitutional Present: no acute distress - Routine HEENT Exam Eye: Present: EOMI - Routine Neck Exam Present: full ROM. Absent: lymphadenopathy - Routine Respiratory Exam Present: CTAB - Routine Cardiovascular Exam Cardiovascular: Present: RRR, S1, S2 - Routine Abdominal Exam Present: soft - Routine Extremities Exam Present: full ROM, joint swelling. Absent: calf tenderness, pedal edema, tenderness - Routine Skin Exam Present: intact. Absent: cyanosis, erythema Data - Labs Labs: Progress Note: A/P (1) Prostate cancer metastatic to bone Status: Chronic Assessment and plan: 1. 1. This is a 79 year-old male with metastatic Prostate Cancer, Bone Metastases diagnosed in 2012. pMSI. BRCA 10/05 negative. He is on LHRH agonist q 6 months. On monthly denosumab. He started Cabazitaxel 20 milligram/meter squared Q 3 weeks along with prednisone 5 mg b.i.d.. in March 2019. Because of side effects his chemotherapy was changed to every 5 weeks. Denosumab 120 mg subcu Q 5 weeks. PSA has now increased to over 27. He is symptomatic with worsening bone pain. He has now developed resistance to almost every treatment currently available. He is not eligible for immunotherapy since he is MSI stable. He has not been tried on chemotherapy with mitoxantrone an anthracenedione which is used in the palliative setting for prostate cancer. Possible side effects such as myelosuppression, cardiotoxicity to be discussed. Patient had echocardiogram in March 2020, LVEF was normal at 60 to 65%. Patient is interested in proceeding with treatment. 2. Hypothyroidism, he is on Synthroid. - Time Spent With Patient Total time spent is greater than 50% in coordination of care (as documented) at patient's floor/unit and/or counseling patient: 15 - 24 minutes
--- NOTE | 2020-09-01 16:11 | MHC.HEMONC ---
Pt here for chemo infusion. Labs drawn, IV started. Labs reviewed. Pt tolerated chemo well. Dr Gonzalez in to see pt. Treatment plan to change with next chemo. Will call pt to schedule chemo teach for new med. Pt also questioning Elegard, which he has not been receiving due to Covid. Asking to have it given here. Will check on prior authorization, and pt to receive at next visit.
--- NOTE | 2020-09-16 11:10 | MHC.HEMONCSW ---
MEDICARE PRIMARY INSURANCE. NO PA REQUIRED FOR ELIGARD AND MITOXANTRONE. INFORMED RN JACKIE.
--- NOTE | 2020-09-16 13:51 | MHC.HEMONC ---
Pharmacy called, made aware of change in pt's treatment plan. Aware of new med and of Eligard. Pt called to also make him aware. He is scheduled for treatment on 10/06/20
--- NOTE | 2020-10-12 16:48 | MHC.HEMONC ---
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 PH:
--- NOTE | 2020-10-12 16:50 | MHC.HEMONC ---
PA FOR XTPORFIRIOI & XLEROYVA REQUESTED. WAITING ON RESPONSE.
--- NOTE | 2020-10-13 08:36 | MHC.HEMONC ---
PA FOR XTANDI - APPROVED. EFFECTIVE 09/13/2020 TO 10/13/2021. [facility] [employer]EE PROGRAM -PHONE: [phone]& FAX [phone]
--- NOTE | 2020-10-14 15:22 | MHC.HEMONCSW ---
KRAIG...... PATIENT CALLED UPSET, STATED HE HAS BEEN OUT OF MEDS FOR ONE WEEK, AND, [facility] TOLD HIM TODAY THEY WANT $80.00 UPON DELIVERY. ISSUE....FINANCIAL DIFFICULTY. HAD HAD A PATIENT ASSISTANCE PROGRAM NAMED ACCESS IN THE PAST BUT THAT PROGRAM CLOSED. PER NUHA AT [facility], PT MUST CALL [facility] AT [phone] TO APPLY FOR ASSISTANCE, A COUPON AND THEIR CREDIT CARD...ONCE DONE HE IS TO CALL [facility]. PHONED, INFORMED PATIENT OF THE ABOVE. VERBALIZED UNDERSTANDING AND WILL MAKE CALLS.
--- NOTE | 2020-10-14 15:39 | MHC.HEMONC ---
CURRENT SPECIALTY PHARMACY- [facility] PHONE- [phone]
--- NOTE | 2020-10-14 15:52 | MHC.HEMONC ---
[facility]: [phone]
[2020-10-26 08:30] VITALS: BP 155/71; PULSE 78; RESP 18; TEMP 36.3; O2SAT 95; BMI 29.8
--- NOTE | 2020-10-26 08:47 | P.PNHO_ITS ---
Medical Summary - Medical Summary Date of Service: 10/26/20 Chief complaint: Follow-up Medical Summary: DIAGNOSIS: Mr. Morgan was diagnosed with prostate cancer in 2006. THERAPY: 1. He underwent radical retropubic prostatectomy with bilateral pelvic lymphadenectomy on March 31, 2007. He was staged as a T3a [place]'s 4 + 3 prostate adenocarcinoma. 2. He underwent ERBT postoperatively in 2007 for a rising PSA. 3. He was diagnosed with metastatic disease, bony metastasis sometime in 2011 and has been on hormonal manipulation under the care of his urologist Dr. Oreilly. Repeat imaging: Restaging with a PET scan May 14, 2014 showed mild hypermetabolic activity in the right L2 pedicle SUV of 3.4, T11, T12 and T10 SUV of 5.28, and T5, T4 and T3 vertebrae with only residual sites of disease. No additional hypermetabolic activity in the skeleton, and no lymphadenopathy. Diffuse sclerotic lesions throughout cervical, dorsal, lumbar sacral spine, iliac bones and bilateral ribs consistent with old metastatic disease. PSA on May 02, 2014, 25.6 and total testosterone less than 1 ng/dL. 4. After oncology consultation in apr 2014, patient started Denosumab (Xgeva)120 mg subcu monthly, since June 02, 2014. 5. Because of rising PSA noted in July 2014 when it reggie 61, the patient was taken off Casodex. 6. The patient started Xtandi or enzalutamide at a dose of 160 mg once daily on October 14, 2014. 7. Started Xofigo (radium 223)dose of 55 KBq/ per kilo every 4 weeks for 6 doses on 04/05/16. 8. Received palliative radiotherapy to C2 vertebral body at [facility] in June 2017 because of increasing uptake on PET scan worrisome for metastasis. 9. He started zytiga Jul 2017 to Sep 2017. Discontinued for rising PSA. 10. He then received 6 cycles Taxotere from 10/25/17 to January 2018. MSI status on tumor, showed preserved expression of DNA mismatch repair proteins indicating lack of microsatellite instability. Patient?s genetic test result , extended my Risk dinner tick panel testing was negative. 11. Ketoconazole for 1 month apr/2017. 12. Was seen at [facility] by Dr. Jaqueline Ayala for second opinion as well as consideration of clinical trials, was recommended clinical trial with olaparib +/- Cederinib. If he decides against trial, options would be to reconsider Zytiga, chemotherapy with Cabazitaxel +/- Carboplatinum or Apalutamide. 13. Was on Apalutamide 240 mg once a day for about 3 months. Rising PSA. 14. Switched to Zytiga 1000 mg once a day with prednisone 5 mg b.i.d. from end of December 2018. 15. Discontinued 03/14/2019 because of rising PSA. 16. Started Cabazitaxel March 2019. Treated for Legionella pneumonia after cycle 1 Interval History Interval history: Patient is here in follow-up. He has been on Zytiga now for more than 10 days and beginning to feel better. His body aches have improved. He denies any chest pain, shortness of breath, fever or chills. He would like to receive COVID-19 vaccine. He denies any headache or dizziness. No focal weakness numbness or tingling. 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 Mother No problems noted. Surgical History: Surgical History (Last Reviewed 09/11/20 @ 10:45 by Otoniel Fink MD) H/O hernia repair Social History: Social History (Last Reviewed 09/11/20 @ 10:45 by Otoniel Fink MD) Alcohol History: Alcohol intake: current Alcohol History Details: Alcohol intake frequency: holiday/special occasion Tobacco History: Smoking Status: Former smoker Occupation Assessmet: Current occupational status: retired Current occupation: right \handed Smoking status: Former smoker Oncology Screenings - ECOG Performance Status ECOG Performance Status: 1 Home Medications and Allergies Current Medications: Current Medications Generic Name Dose Route Start Last Admin Trade Name Freq PRN Reason Stop Dose Admin Denosumab 120 mg 10/26/20 00:00 Denosumab 120 Mg/1.7 Ml Vial SUBCUT 10/26/20 23:59 ONCE RAIMUNDO Home Medications Medication Instructions Recorded Confirmed Type atorvastatin 1 tab PO DAILY 07/28/20 09/16/20 History denosumab [Xgeva] 120 mg SUBCUT Q4W 07/28/20 09/16/20 History leuprolide (6 month) [Eligard (6 45 mg SUBCUT [id number] 07/28/20 09/16/20 History month)] levothyroxine 1 tab PO QAM 07/28/20 09/16/20 History omeprazole magnesium 20 mg PO DAILY 07/28/20 09/16/20 History prednisone 1 tab PO DAILY 07/28/20 09/16/20 History Allergies Allergy/AdvReac Type Severity Reaction Status Date / Time No Known Allergies Allergy Verified 10/26/20 08:42 Exam Vital signs: Vital Signs Temp 97.4 F 10/26/20 08:30 Pulse 78 10/26/20 08:30 Resp 18 10/26/20 08:30 BP 155/71 H 10/26/20 08:30 Pulse Ox 95 10/26/20 08:30 Intake & Output 10/25/20 10/26/20 10/26/20 18:59 06:59 18:59 Other: Weight 91.6 kg Weight 91.6 kg Body Mass Index 29.8 - Constitutional Present: no acute distress - Routine HEENT Exam Head: Present: normal inspection - Routine Neck Exam Present: full ROM. Absent: lymphadenopathy - Routine Respiratory Exam Present: CTAB - Routine Cardiovascular Exam Cardiovascular: Present: RRR, S1, S2 - Routine Abdominal Exam Present: soft - Routine Extremities Exam Present: full ROM, joint swelling. Absent: calf tenderness, pedal edema, tenderness - Routine Skin Exam Present: intact. Absent: cyanosis, erythema Data - Labs Labs: 07/28/20 00:00 0.9 % Sodium Chloride [Ns] 500 ml IVCONT 250 mls/hr Cabazitaxel [Jevtana] 40 mg 0.9 % Sodium Chloride 250 ml IV ONCE Denosumab [Xgeva] 120 mg SUBCUT ONCE Famotidine/PF [Pepcid/PF] 20 mg IVPUSH ONCE Heparin Sodium,Porcine Flush 500 unit IVFLUSH ONCE dexAMETHasone sod phosphate/NS [Decadron] 12 mg in 50 ml IV ONCE diphenhydrAMINE HCL [Benadryl] 25 mg PO ONCE ondansetron HCL/NS [Zofran] 16 mg in 50 ml IV ONCE 07/28/20 11:50 XR chest 2V Routine XR knee RT 4V Routine XR shoulder RT min 2V Routine 09/01/20 00:00 Cabazitaxel [Jevtana] 40 mg 0.9 % Sodium Chloride 250 ml IV ONCE Denosumab [Xgeva] 120 mg SUBCUT ONCE Famotidine/PF [Pepcid/PF] 20 mg IVPUSH ONCE Heparin Sodium,Porcine Flush 500 unit IVFLUSH ONCE dexAMETHasone sod phosphate/NS [Decadron] 12 mg in 50 ml IV ONCE diphenhydrAMINE HCL [Benadryl] 25 mg PO ONCE ondansetron HCL/NS [Zofran] 16 mg in 50 ml IV ONCE 09/08/20 00:00 Leuprolide Acetate [Eligard] 45 mg SUBCUT ONCE 10/07/20 00:00 Denosumab [Xgeva] 120 mg SUBCUT ONCE Laboratory Tests 03/28/19 06/22/20 10/20/20 19:09 10:00 09:04 WBC 4.1 L Hgb 11.9 L Hct 37.2 L Plt Count 265 Sodium Potassium Chloride Carbon Dioxide Bicarbonate 24 Anion Gap BUN Creatinine Direct Bilirubin 0.4 Total Bilirubin AST ALT Alkaline Phosphatase Prostate Specific Ag 10/20/20 09:04 WBC Hgb Hct Plt Count Sodium 141 Potassium 4.0 Chloride 106 Carbon Dioxide 27 Bicarbonate Anion Gap 12 BUN 20 H Creatinine 1.02 Direct Bilirubin Total Bilirubin 0.6 AST 22 ALT 38 Alkaline Phosphatase 102 Prostate Specific Ag 17.63 H - Imaging Radiologist's impression: ITS Impressions Chest X-Ray 07/28/20 11:50 IMPRESSION: No evidence for acute disease in the chest. Sclerotic bone disease similar to previous exams. EXAMINATION: Right shoulder x-ray CLINICAL INFORMATION: Pain COMPARISON: None. TECHNIQUE: 4 views of the right shoulder FINDINGS: Bone alignment is normal. No fracture or dislocation is seen. The glenohumeral joint is normal. There is arthritis at the acromioclavicular joint. There is evidence of diffuse sclerotic bone disease. Soft tissues are unremarkable. IMPRESSION: Sclerotic bone disease. Arthritis at the acromioclavicular joint. EXAMINATION: Right knee x-ray CLINICAL INFORMATION: Pain COMPARISON: None. TECHNIQUE: 4 views right knee FINDINGS: Bone alignment is normal. No fracture or dislocation is seen. The joint spaces are normal. There is no joint effusion. IMPRESSION: Unremarkable exam. Knee X-Ray 07/28/20 11:50 IMPRESSION: No evidence for acute disease in the chest. Sclerotic bone disease similar to previous exams. EXAMINATION: Right shoulder x-ray CLINICAL INFORMATION: Pain COMPARISON: None. TECHNIQUE: 4 views of the right shoulder FINDINGS: Bone alignment is normal. No fracture or dislocation is seen. The glenohumeral joint is normal. There is arthritis at the acromioclavicular joint. There is evidence of diffuse sclerotic bone disease. Soft tissues are unremarkable. IMPRESSION: Sclerotic bone disease. Arthritis at the acromioclavicular joint. EXAMINATION: Right knee x-ray CLINICAL INFORMATION: Pain COMPARISON: None. TECHNIQUE: 4 views right knee FINDINGS: Bone alignment is normal. No fracture or dislocation is seen. The joint spaces are normal. There is no joint effusion. IMPRESSION: Unremarkable exam. Shoulder X-Ray 07/28/20 11:50 IMPRESSION: No evidence for acute disease in the chest. Sclerotic bone disease similar to previous exams. EXAMINATION: Right shoulder x-ray CLINICAL INFORMATION: Pain COMPARISON: None. TECHNIQUE: 4 views of the right shoulder FINDINGS: Bone alignment is normal. No fracture or dislocation is seen. The glenohumeral joint is normal. There is arthritis at the acromioclavicular joint. There is evidence of diffuse sclerotic bone disease. Soft tissues are unremarkable. IMPRESSION: Sclerotic bone disease. Arthritis at the acromioclavicular joint. EXAMINATION: Right knee x-ray CLINICAL INFORMATION: Pain COMPARISON: None. TECHNIQUE: 4 views right knee FINDINGS: Bone alignment is normal. No fracture or dislocation is seen. The joint spaces are normal. There is no joint effusion. IMPRESSION: Unremarkable exam. Progress Note: A/P (1) Prostate cancer metastatic to bone Status: Chronic Assessment and plan: 1. 1. This is a 79 year-old male with metastatic Prostate Cancer, Bone Metastases diagnosed in 2012. pMSI. BRCA 10/05 negative. He is on LHRH agonist q 6 months. On monthly denosumab. He started Cabazitaxel 20 milligram/meter squared Q 3 weeks along with prednisone 5 mg b.i.d.. in March 2019. Because of side effects his chemotherapy was changed to every 5 weeks. Denosumab 120 mg subcu Q 5 weeks. PSA had increased to 27 in August 2020. We discussed switching him to mitoxantrone but because of increased myelosuppression and side effects he wanted to try oral agents again. In I have started him on Xtandi 160 daily which he was on a few years ago. He is on prednisone 2.5 mg once daily. He is tolerating treatment well. He is getting Eligard injections every 6 months with his urologist. His PSA has decreased slightly, he will be monitored. He is going to receive COVID-19 vaccine this week. - Time Spent With Patient Total time spent is greater than 50% in coordination of care (as documented) at patient's floor/unit and/or counseling patient: 25 - 35 minutes
--- NOTE | 2020-10-26 10:36 | MHC.HEMONC ---
Patient here for follow up and injection. Injection given as ordered/documented. Clinical summary updated with nurse. Provider seen patient.
[2020-11-23 09:18] LABS: MANUAL DIFF FLAG NO
[2020-11-23 09:35] LABS: Basophils Percent Auto 0.5 % (0-2); Eosinophils Absolute Auto 0.1 X10*3/uL (0.0-0.4); Eosinophils Percent Auto 1.4 % (0-4); Hematocrit 39.2 % (42-52); Hemoglobin 13.1 g/dl (14.0-18.0); Imm Gran Abs Auto 0.03 X10*3/uL (0.00-0.03); Imm Gran Pct Auto 0.7 % (0.0-0.4); Lymphocytes Absolute Auto 1.3 X10*3/uL (1.2-4.9); Lymphocytes Percent Auto 29.3 % (20-40); Mean Corpuscular HGB Conc 33.4 g/dl (31.0-36.0); Mean Corpuscular Volume 95.6 fL (80-98); Mean Platelet Volume 9.5 fL (9.4-12.4); Monocytes Absolute Auto 0.5 X10*3/uL (0.1-1.2); Monocytes Percent Auto 10.2 % (2-11); Neutrophils Absolute Auto 2.6 X10*3/uL (2.0-8.3); Neutrophils Percent Auto 57.9 % (45-73); Platelet Count 282 X10*3/uL (160-400); White Blood Count 4.4 X10*3/uL (4.8-10.8)
[2020-11-23 09:44] VITALS: BP 162/72; PULSE 75; RESP 18; TEMP 36.7; O2SAT 98; BMI 29.3
[2020-11-23 10:03] LABS: Alanine Aminotransferase 65 U/L (0-40); Albumin Level 4.2 g/dL (3.5-5.0); Alkaline Phosphatase 88 U/L (39-117); Anion Gap 14 (12-20); Aspartate Amino Transferase 41 U/L (5-37); Bilirubin Total 0.7 mg/dL (0.0-1.0); Blood Urea Nitrogen 20 mg/dL (9-16); Calcium 8.7 mg/dL (8.4-10.2); Carbon Dioxide 24 mmol/L (22-29); Chloride 105 mmol/L (96-108); Creatinine Clr Calc Pharmacy 60.3; Estimated Glomerular Filt Rate > 60; Glucose Random 136 mg/dL (60-115); Potassium 4.1 mmol/L (3.3-5.1); Sodium 139 mmol/L (135-145); Total Protein 6.7 g/dL (6.5-8.0)
--- NOTE | 2020-11-23 10:36 | HO.HEMONCPA ---
PA for Xgeva APPROVED. However we are only able to approve the medication for a quantity limit of 3 every 84 days. The authorization is approved from 09/13/2020 through 10/13/2021. APPROVAL DOCUMENT SCANNED INTO PT'S CHART
--- NOTE | 2020-11-23 16:30 | MHC.HEMONC ---
Pt here for ONC follow up with Dr Gonzalez and injection. Clinical summary updated by nurse. Peripheral lab draw by phlebotomy-results reviewed by Dr Gonzalez.Provider into see pt. XGEVA given SC in right arm. Follow up appointment and discharge packet given.
[2020-12-25 09:34] VITALS: BP 149/73; RESP 18; TEMP 36.2; O2SAT 96; BMI 29.4
--- NOTE | 2020-12-25 09:59 | P.PNHO_ITS ---
Medical Summary - Medical Summary Date of Service: 12/25/20 Chief complaint: Follow-up Medical Summary: DIAGNOSIS: Mr. Morgan was diagnosed with prostate cancer in 2006. THERAPY: 1. He underwent radical retropubic prostatectomy with bilateral pelvic lymphadenectomy on March 31, 2007. He was staged as a T3a [place]'s 4 + 3 prostate adenocarcinoma. 2. He underwent ERBT postoperatively in 2007 for a rising PSA. 3. He was diagnosed with metastatic disease, bony metastasis sometime in 2011 and has been on hormonal manipulation under the care of his urologist Dr. Oreilly. Repeat imaging: Restaging with a PET scan May 14, 2014 showed mild hypermetabolic activity in the right L2 pedicle SUV of 3.4, T11, T12 and T10 SUV of 5.28, and T5, T4 and T3 vertebrae with only residual sites of disease. No additional hypermetabolic activity in the skeleton, and no lymphadenopathy. Diffuse sclerotic lesions throughout cervical, dorsal, lumbar sacral spine, iliac bones and bilateral ribs consistent with old metastatic disease. PSA on May 02, 2014, 25.6 and total testosterone less than 1 ng/dL. 4. After oncology consultation in apr 2014, patient started Denosumab (Xgeva)120 mg subcu monthly, since June 02, 2014. 5. Because of rising PSA noted in July 2014 when it reggie 61, the patient was taken off Casodex. 6. The patient started Xtandi or enzalutamide at a dose of 160 mg once daily on October 14, 2014. 7. Started Xofigo (radium 223)dose of 55 KBq/ per kilo every 4 weeks for 6 doses on 04/05/16. 8. Received palliative radiotherapy to C2 vertebral body at [facility] in June 2017 because of increasing uptake on PET scan worrisome for metastasis. 9. He started zytiga Jul 2017 to Sep 2017. Discontinued for rising PSA. 10. He then received 6 cycles Taxotere from 10/25/17 to January 2018. MSI status on tumor, showed preserved expression of DNA mismatch repair proteins indicating lack of microsatellite instability. Patient?s genetic test result , extended my Risk dinner tick panel testing was negative. 11. Ketoconazole for 1 month apr/2017. 12. Was seen at [facility] by Dr. Jaqueline Ayala for second opinion as well as consideration of clinical trials, was recommended clinical trial with olaparib +/- Cederinib. If he decides against trial, options would be to reconsider Zytiga, chemotherapy with Cabazitaxel +/- Carboplatinum or Apalutamide. 13. Was on Apalutamide 240 mg once a day for about 3 months. Rising PSA. 14. Switched to Zytiga 1000 mg once a day with prednisone 5 mg b.i.d. from end of December 2018. 15. Discontinued 03/14/2019 because of rising PSA. 16. Started Cabazitaxel March 2019. Treated for Legionella pneumonia after cycle 1 17. Switched to Xtandi in September 2020 Interval History Interval history: Patient is here in follow-up. He is doing about the same. Gets occasional aches and pains but not persistent back or hip pain. He has noticed return of positional vertigo since he started Xtandi. He has had this in the past as well. He denies any chest pain, palpitation or dizziness. No leg swelling. No change in bowel habits, no nausea. No fever or chills. He received COVID-19 vaccination. 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 Mother No problems noted. Surgical History: Surgical History (Last Updated 11/23/20 @ 10:06 by Amber An RN) H/O hernia repair History of appendectomy History of shoulder surgery Social History: Social History (Last Updated 12/18/20 @ 11:17 by JOSE LUIS Diaz) Living Situation History: Household Members: Spouse Alcohol History: Alcohol intake: current Alcohol History Details: Alcohol intake frequency: holiday/special occasion Tobacco History: Smoking Status: Former smoker Occupation Assessmet: Current occupational status: retired Current occupation: right \handed Smoking status: Former smoker Oncology Screenings - ECOG Performance Status ECOG Performance Status: 1 Home Medications and Allergies Current Medications: Current Medications Generic Name Dose Route Start Last Admin Trade Name Remy PRN Reason Stop Dose Admin Denosumab 120 mg 12/25/20 00:00 12/25/20 09:55 Denosumab 120 Mg/1.7 Ml Vial SUBCUT 12/25/20 23:59 120 mg ONCE RAIMUNDO Administration Home Medications Medication Instructions Recorded Confirmed Type atorvastatin 1 tab PO DAILY 07/28/20 12/25/20 History denosumab [Xgeva] 120 mg SUBCUT Q4W 07/28/20 12/25/20 History leuprolide (6 month) [Eligard (6 45 mg SUBCUT [id number] 07/28/20 12/25/20 History month)] omeprazole magnesium 20 mg 20 mg PO DAILY PRN 12/18/20 12/25/20 History capsule,delayed release Allergies Allergy/AdvReac Type Severity Reaction Status Date / Time No Known Allergies Allergy Verified 10/26/20 08:42 Exam Vital signs: Vital Signs Temp 97.2 F 12/25/20 09:34 Pulse 75 11/23/20 09:44 Resp 18 12/25/20 09:34 BP 149/73 H 12/25/20 09:34 Pulse Ox 96 12/25/20 09:34 Intake & Output 12/24/20 12/25/20 12/25/20 18:59 06:59 18:59 Other: Weight 90.3 kg Weight in Grams [id number] Weight 90.3 kg Body Mass Index 29.4 - Constitutional Present: no acute distress - Routine HEENT Exam Head: Present: normal inspection - Routine Neck Exam Present: full ROM. Absent: lymphadenopathy - Routine Respiratory Exam Present: CTAB - Routine Cardiovascular Exam Cardiovascular: Present: RRR, S1, S2 - Routine Abdominal Exam Present: soft - Routine Extremities Exam Present: full ROM, joint swelling. Absent: calf tenderness, pedal edema, tenderness - Routine Skin Exam Present: intact. Absent: cyanosis, erythema Data - Labs CBC & Chem 7: 11/23/20 09:17 11/23/20 09:17 Labs: 07/28/20 00:00 0.9 % Sodium Chloride [Ns] 500 ml IVCONT 250 mls/hr Cabazitaxel [Jevtana] 40 mg 0.9 % Sodium Chloride 250 ml IV ONCE Denosumab [Xgeva] 120 mg SUBCUT ONCE Famotidine/PF [Pepcid/PF] 20 mg IVPUSH ONCE Heparin Sodium,Porcine Flush 500 unit IVFLUSH ONCE dexAMETHasone sod phosphate/NS [Decadron] 12 mg in 50 ml IV ONCE diphenhydrAMINE HCL [Benadryl] 25 mg PO ONCE ondansetron HCL/NS [Zofran] 16 mg in 50 ml IV ONCE 07/28/20 11:50 XR chest 2V Routine XR knee RT 4V Routine XR shoulder RT min 2V Routine 09/01/20 00:00 Cabazitaxel [Jevtana] 40 mg 0.9 % Sodium Chloride 250 ml IV ONCE Denosumab [Xgeva] 120 mg SUBCUT ONCE Famotidine/PF [Pepcid/PF] 20 mg IVPUSH ONCE Heparin Sodium,Porcine Flush 500 unit IVFLUSH ONCE dexAMETHasone sod phosphate/NS [Decadron] 12 mg in 50 ml IV ONCE diphenhydrAMINE HCL [Benadryl] 25 mg PO ONCE ondansetron HCL/NS [Zofran] 16 mg in 50 ml IV ONCE 09/08/20 00:00 Leuprolide Acetate [Eligard] 45 mg SUBCUT ONCE 10/07/20 00:00 Denosumab [Xgeva] 120 mg SUBCUT ONCE Laboratory Tests 03/28/19 06/22/20 10/20/20 19:09 10:00 09:04 WBC 4.1 L Hgb 11.9 L Hct 37.2 L Plt Count 265 Sodium Potassium Chloride Carbon Dioxide Bicarbonate 24 Anion Gap BUN Creatinine Direct Bilirubin 0.4 Total Bilirubin AST ALT Alkaline Phosphatase Prostate Specific Ag 10/20/20 09:04 WBC Hgb Hct Plt Count Sodium 141 Potassium 4.0 Chloride 106 Carbon Dioxide 27 Bicarbonate Anion Gap 12 BUN 20 H Creatinine 1.02 Direct Bilirubin Total Bilirubin 0.6 AST 22 ALT 38 Alkaline Phosphatase 102 Prostate Specific Ag 17.63 H - Imaging Radiologist's impression: ITS Impressions Chest X-Ray 07/28/20 11:50 IMPRESSION: No evidence for acute disease in the chest. Sclerotic bone disease similar to previous exams. EXAMINATION: Right shoulder x-ray CLINICAL INFORMATION: Pain COMPARISON: None. TECHNIQUE: 4 views of the right shoulder FINDINGS: Bone alignment is normal. No fracture or dislocation is seen. The glenohumeral joint is normal. There is arthritis at the acromioclavicular joint. There is evidence of diffuse sclerotic bone disease. Soft tissues are unremarkable. IMPRESSION: Sclerotic bone disease. Arthritis at the acromioclavicular joint. EXAMINATION: Right knee x-ray CLINICAL INFORMATION: Pain COMPARISON: None. TECHNIQUE: 4 views right knee FINDINGS: Bone alignment is normal. No fracture or dislocation is seen. The joint spaces are normal. There is no joint effusion. IMPRESSION: Unremarkable exam. Knee X-Ray 07/28/20 11:50 IMPRESSION: No evidence for acute disease in the chest. Sclerotic bone disease similar to previous exams. EXAMINATION: Right shoulder x-ray CLINICAL INFORMATION: Pain COMPARISON: None. TECHNIQUE: 4 views of the right shoulder FINDINGS: Bone alignment is normal. No fracture or dislocation is seen. The glenohumeral joint is normal. There is arthritis at the acromioclavicular joint. There is evidence of diffuse sclerotic bone disease. Soft tissues are unremarkable. IMPRESSION: Sclerotic bone disease. Arthritis at the acromioclavicular joint. EXAMINATION: Right knee x-ray CLINICAL INFORMATION: Pain COMPARISON: None. TECHNIQUE: 4 views right knee FINDINGS: Bone alignment is normal. No fracture or dislocation is seen. The joint spaces are normal. There is no joint effusion. IMPRESSION: Unremarkable exam. Shoulder X-Ray 07/28/20 11:50 IMPRESSION: No evidence for acute disease in the chest. Sclerotic bone disease similar to previous exams. EXAMINATION: Right shoulder x-ray CLINICAL INFORMATION: Pain COMPARISON: None. TECHNIQUE: 4 views of the right shoulder FINDINGS: Bone alignment is normal. No fracture or dislocation is seen. The glenohumeral joint is normal. There is arthritis at the acromioclavicular joint. There is evidence of diffuse sclerotic bone disease. Soft tissues are unremarkable. IMPRESSION: Sclerotic bone disease. Arthritis at the acromioclavicular joint. EXAMINATION: Right knee x-ray CLINICAL INFORMATION: Pain COMPARISON: None. TECHNIQUE: 4 views right knee FINDINGS: Bone alignment is normal. No fracture or dislocation is seen. The joint spaces are normal. There is no joint effusion. IMPRESSION: Unremarkable exam. Progress Note: A/P (1) Prostate cancer metastatic to bone Status: Chronic Assessment and plan: 1. 1. This is a 80 year-old male with metastatic Prostate Cancer, Bone Metastases diagnosed in 2012. pMSI. BRCA 10/05 negative. He is on LHRH agonist q 6 months. On monthly denosumab. He started Xtandi 160 daily since September 2020 He is tolerating treatment well. He is getting Eligard injections every 6 months with his urologist. He does have some chronic aches and pains. Repeat bone scan at this time to assess response to treatment. Monitor PSA. Follow-up in 2 months. - Time Spent With Patient Total time spent is greater than 50% in coordination of care (as documented) at patient's floor/unit and/or counseling patient: 15 - 24 minutes
--- NOTE | 2020-12-25 10:08 | MHC.HEMONC ---
Xgeva well tolerated to right upper arm. VSS. Labs obtained at home day prior. Follow up appt made.
--- NOTE | 2020-12-25 10:35 | MHC.HEMONCMA ---
Dr Gonzalez ordered a bone scan for the patient, i placed the order in order [facility] platforms.
[2021-01-22 09:37] VITALS: BP 148/71; PULSE 91; RESP 18; TEMP 36.4; O2SAT 96; BMI 29.5
[2021-02-19 09:30] VITALS: BP 146/74; PULSE 88; RESP 12; TEMP 36.3; O2SAT 98; BMI 28.8
--- NOTE | 2021-02-19 09:59 | MHC.HEMONC ---
Xgeva administered to left upper arm, well tolerated. VSS. Labs completed at home. Will follow up with Dr. Gonzalez next week for exam.
[2021-02-24 10:15] VITALS: BP 133/82; PULSE 76; RESP 14; TEMP 36.6; O2SAT 96; BMI 29.0
--- NOTE | 2021-02-24 10:39 | P.PNHO_ITS ---
Medical Summary - Medical Summary Date of Service: 02/24/21 Chief complaint: Right knee swelling and pain Medical Summary: DIAGNOSIS: Mr. Morgan was diagnosed with prostate cancer in 2006. THERAPY: 1. He underwent radical retropubic prostatectomy with bilateral pelvic lymphadenectomy on March 31, 2007. 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 2. He underwent ERBT postoperatively in 2007 for a rising PSA. 3. He was diagnosed with metastatic disease, bony metastasis sometime in 2011 and has been on hormonal manipulation under the care of his urologist Dr. Oreilly. Repeat imaging: Restaging with a PET scan May 14, 2014 showed mild hypermetabolic activity in the right L2 pedicle SUV of 3.4, T11, T12 and T10 SUV of 5.28, and T5, T4 and T3 vertebrae with only residual sites of disease. No additional hypermetabolic activity in the skeleton, and no lymphadenopathy. Diffuse sclerotic lesions throughout cervical, dorsal, lumbar sacral spine, iliac bones and bilateral ribs consistent with old metastatic disease. PSA on May 02, 2014, 25.6 and total testosterone less than 1 ng/dL. 4. After oncology consultation in apr 2014, patient started Denosumab (Xgeva)120 mg subcu monthly, since June 02, 2014. 5. Because of rising PSA noted in July 2014 when it reggie 61, the patient was taken off Casodex. 6. The patient started Xtandi or enzalutamide at a dose of 160 mg once daily on October 14, 2014. 7. Started Xofigo (radium 223)dose of 55 KBq/ per kilo every 4 weeks for 6 doses on 04/05/16. 8. Received palliative radiotherapy to C2 vertebral body at [facility] in June 2017 because of increasing uptake on PET scan worrisome for metastasis. 9. He started zytiga Jul 2017 to Sep 2017. Discontinued for rising PSA. 10. He then received 6 cycles Taxotere from 10/25/17 to January 2018. MSI status on tumor, showed preserved expression of DNA mismatch repair proteins indicating lack of microsatellite instability. Patient?s genetic test result , extended my Risk dinner tick panel testing was negative. 11. Ketoconazole for 1 month apr/2017. 12. Was seen at [facility] by Dr. Jaqueline Ayala for second opinion as well as consideration of clinical trials, was recommended clinical trial with olaparib +/- Cederinib. If he decides against trial, options would be to reconsider Zytiga, chemotherapy with Cabazitaxel +/- Carboplatinum or Apalutamide. 13. Was on Apalutamide 240 mg once a day for about 3 months. Rising PSA. 14. Switched to Zytiga 1000 mg once a day with prednisone 5 mg b.i.d. from end of December 2018. 15. Discontinued 03/14/2019 because of rising PSA. 16. Started Cabazitaxel March 2019. Treated for Legionella pneumonia after cycle 1 17. Switched to Xtandi in September 2020 Interval History Interval history: Patient is here in follow-up. His main complaint is recurrent swelling of his right knee joint, it has now become painful and interfering with activities of daily living. He has had joint injection of steroid as well as aspiration of fluid. He reports no fever or chills. He does have some pain in his right shoulder. He does not have back pain but reports pruritus of his upper back. He has not seen his utility driver in over a year. He denies any cough or shortness of breath. No change in bowel habits. No loss of appetite or weight loss. 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 Mother No problems noted. Surgical History: Surgical History (Last Reviewed 02/15/21 @ 12:43 by Michelle Fontenot) H/O hernia repair History of appendectomy History of shoulder surgery Social History: Social History (Last Reviewed 02/15/21 @ 12:43 by Michelle Fontenot) Living Situation History: Household Members: Spouse Alcohol History: Alcohol intake: current Alcohol History Details: Alcohol intake frequency: holiday/special occasion Occupation Assessmet: Current occupational status: retired Current occupation: right \handed Oncology Screenings - ECOG Performance Status ECOG Performance Status: 1 Home Medications and Allergies Home Medications Medication Instructions Recorded Confirmed Type denosumab [Xgeva] 120 mg SUBCUT Q4W 07/28/20 12/25/20 History leuprolide (6 month) [Eligard (6 45 mg SUBCUT [id number] 07/28/20 12/25/20 History month)] omeprazole magnesium 20 mg 20 mg PO DAILY PRN 12/18/20 12/25/20 History capsule,delayed release Allergies Allergy/AdvReac Type Severity Reaction Status Date / Time No Known Allergies Allergy Verified 02/15/21 12:43 Exam Vital signs: Vital Signs Temp 97.8 F 02/24/21 10:15 Pulse 76 02/24/21 10:15 Resp 14 02/24/21 10:15 BP 133/82 02/24/21 10:15 Pulse Ox 96 02/24/21 10:15 Intake & Output 02/23/21 02/24/21 02/24/21 18:59 06:59 18:59 Other: Weight 89.1 kg Weight in Grams [id number] Weight 89.1 kg Body Mass Index 29.0 - Constitutional Present: no acute distress - Routine HEENT Exam Head: Present: normal inspection - Routine Neck Exam Present: full ROM. Absent: lymphadenopathy - Routine Respiratory Exam Present: CTAB - Routine Cardiovascular Exam Cardiovascular: Present: RRR, S1, S2 - Routine Abdominal Exam Present: soft - Routine Extremities Exam Present: full ROM, joint swelling. Absent: calf tenderness, pedal edema, tenderness - Routine Skin Exam Present: intact. Absent: cyanosis, erythema Data - Labs CBC & Chem 7: 11/23/20 09:17 11/23/20 09:17 Labs: 07/28/20 00:00 0.9 % Sodium Chloride [Ns] 500 ml IVCONT 250 mls/hr Cabazitaxel [Jevtana] 40 mg 0.9 % Sodium Chloride 250 ml IV ONCE Denosumab [Xgeva] 120 mg SUBCUT ONCE Famotidine/PF [Pepcid/PF] 20 mg IVPUSH ONCE Heparin Sodium,Porcine Flush 500 unit IVFLUSH ONCE dexAMETHasone sod phosphate/NS [Decadron] 12 mg in 50 ml IV ONCE diphenhydrAMINE HCL [Benadryl] 25 mg PO ONCE ondansetron HCL/NS [Zofran] 16 mg in 50 ml IV ONCE 07/28/20 11:50 XR chest 2V Routine XR knee RT 4V Routine XR shoulder RT min 2V Routine 09/01/20 00:00 Cabazitaxel [Jevtana] 40 mg 0.9 % Sodium Chloride 250 ml IV ONCE Denosumab [Xgeva] 120 mg SUBCUT ONCE Famotidine/PF [Pepcid/PF] 20 mg IVPUSH ONCE Heparin Sodium,Porcine Flush 500 unit IVFLUSH ONCE dexAMETHasone sod phosphate/NS [Decadron] 12 mg in 50 ml IV ONCE diphenhydrAMINE HCL [Benadryl] 25 mg PO ONCE ondansetron HCL/NS [Zofran] 16 mg in 50 ml IV ONCE 09/08/20 00:00 Leuprolide Acetate [Eligard] 45 mg SUBCUT ONCE 10/07/20 00:00 Denosumab [Xgeva] 120 mg SUBCUT ONCE Laboratory Tests 03/28/19 06/22/20 10/20/20 19:09 10:00 09:04 WBC 4.1 L Hgb 11.9 L Hct 37.2 L Plt Count 265 Sodium Potassium Chloride Carbon Dioxide Bicarbonate 24 Anion Gap BUN Creatinine Direct Bilirubin 0.4 Total Bilirubin AST ALT Alkaline Phosphatase Prostate Specific Ag 10/20/20 09:04 WBC Hgb Hct Plt Count Sodium 141 Potassium 4.0 Chloride 106 Carbon Dioxide 27 Bicarbonate Anion Gap 12 BUN 20 H Creatinine 1.02 Direct Bilirubin Total Bilirubin 0.6 AST 22 ALT 38 Alkaline Phosphatase 102 Prostate Specific Ag 17.63 H - Imaging Radiologist's impression: ITS Impressions Chest X-Ray 07/28/20 11:50 IMPRESSION: No evidence for acute disease in the chest. Sclerotic bone disease similar to previous exams. EXAMINATION: Right shoulder x-ray CLINICAL INFORMATION: Pain COMPARISON: None. TECHNIQUE: 4 views of the right shoulder FINDINGS: Bone alignment is normal. No fracture or dislocation is seen. The glenohumeral joint is normal. There is arthritis at the acromioclavicular joint. There is evidence of diffuse sclerotic bone disease. Soft tissues are unremarkable. IMPRESSION: Sclerotic bone disease. Arthritis at the acromioclavicular joint. EXAMINATION: Right knee x-ray CLINICAL INFORMATION: Pain COMPARISON: None. TECHNIQUE: 4 views right knee FINDINGS: Bone alignment is normal. No fracture or dislocation is seen. The joint spaces are normal. There is no joint effusion. IMPRESSION: Unremarkable exam. Knee X-Ray 07/28/20 11:50 IMPRESSION: No evidence for acute disease in the chest. Sclerotic bone disease similar to previous exams. EXAMINATION: Right shoulder x-ray CLINICAL INFORMATION: Pain COMPARISON: None. TECHNIQUE: 4 views of the right shoulder FINDINGS: Bone alignment is normal. No fracture or dislocation is seen. The glenohumeral joint is normal. There is arthritis at the acromioclavicular joint. There is evidence of diffuse sclerotic bone disease. Soft tissues are unremarkable. IMPRESSION: Sclerotic bone disease. Arthritis at the acromioclavicular joint. EXAMINATION: Right knee x-ray CLINICAL INFORMATION: Pain COMPARISON: None. TECHNIQUE: 4 views right knee FINDINGS: Bone alignment is normal. No fracture or dislocation is seen. The joint spaces are normal. There is no joint effusion. IMPRESSION: Unremarkable exam. Shoulder X-Ray 07/28/20 11:50 IMPRESSION: No evidence for acute disease in the chest. Sclerotic bone disease similar to previous exams. EXAMINATION: Right shoulder x-ray CLINICAL INFORMATION: Pain COMPARISON: None. TECHNIQUE: 4 views of the right shoulder FINDINGS: Bone alignment is normal. No fracture or dislocation is seen. The glenohumeral joint is normal. There is arthritis at the acromioclavicular joint. There is evidence of diffuse sclerotic bone disease. Soft tissues are unremarkable. IMPRESSION: Sclerotic bone disease. Arthritis at the acromioclavicular joint. EXAMINATION: Right knee x-ray CLINICAL INFORMATION: Pain COMPARISON: None. TECHNIQUE: 4 views right knee FINDINGS: Bone alignment is normal. No fracture or dislocation is seen. The joint spaces are normal. There is no joint effusion. IMPRESSION: Unremarkable exam. Progress Note: A/P (1) Prostate cancer metastatic to bone Status: Chronic Assessment and plan: 1. 1. This is a 80 year-old male with metastatic Prostate Cancer, Bone Metastases diagnosed in 2012. pMSI. BRCA 10/05 negative. He is on LHRH agonist q 6 months. On monthly denosumab. He started Xtandi 160 daily since September 2020 He is tolerating treatment well. He is getting Eligard injections every 6 months with his urologist. He does have some chronic aches and pains. Repeat bone scan in December 2020 showed progression of disease with bulk of disease in his spine, sternum and right humerus. PSA is rising, over 20 now. He will need to be switched, Xtandi is no longer working. I discussed starting patient on olaparib 300 mg b.i.d.. BRCA mutation is negative, Homologous recombination repair gene mutation to be performed if possible. 2. Recurrent right knee effusion, most likely inflammatory. He has follow-up with Dr. Fink. He has had 1 joint injection and aspiration. I will start him on prednisone 20 mg once daily and taper gradually. Follow-up in 1 months. - Time Spent With Patient Total time spent is greater than 50% in coordination of care (as documented) at patient's floor/unit and/or counseling patient: 25 - 35 minutes
--- NOTE | 2021-02-24 10:41 | MHC.HEMONCMA ---
Patient came in for a follow up today, states that he is having issues with his right knee. He has had it drained and had a cortisone injection but it is not improving- the knee is still swollen, tender and painful to walk on. Nixon states he will be calling the orthopedist to see what the next step is. Clinical summary was reviewed and updated. Patient had labs and will return in 1 month.
--- NOTE | 2021-03-02 10:43 | HO.HEMONCPA ---
ALDO OH WAS DENIED. DR MARKS WAS NOTIFIED
--- NOTE | 2021-03-19 09:49 | P.PNHO_ITS ---
Medical Summary - Medical Summary Date of Service: 03/19/21 Chief complaint: Follow-up Medical Summary: DIAGNOSIS: Mr. Morgan was diagnosed with prostate cancer in 2006. THERAPY: 1. He underwent radical retropubic prostatectomy with bilateral pelvic lymphadenectomy on March 31, 2007. He was staged as a T3a [place]'s 4 + 3 prostate adenocarcinoma. 2. He underwent ERBT postoperatively in 2007 for a rising PSA. 3. He was diagnosed with metastatic disease, bony metastasis sometime in 2011 and has been on hormonal manipulation under the care of his urologist Dr. Oreilly. Repeat imaging: Restaging with a PET scan May 14, 2014 showed mild hypermetabolic activity in the right L2 pedicle SUV of 3.4, T11, T12 and T10 SUV of 5.28, and T5, T4 and T3 vertebrae with only residual sites of disease. No additional hypermetabolic activity in the skeleton, and no lymphadenopathy. Diffuse sclerotic lesions throughout cervical, dorsal, lumbar sacral spine, iliac bones and bilateral ribs consistent with old metastatic disease. PSA on May 02, 2014, 25.6 and total testosterone less than 1 ng/dL. 4. After oncology consultation in apr 2014, patient started Denosumab (Xgeva)120 mg subcu monthly, since June 02, 2014. 5. Because of rising PSA noted in July 2014 when it reggie 61, the patient was taken off Casodex. 6. The patient started Xtandi or enzalutamide at a dose of 160 mg once daily on October 14, 2014. 7. Started Xofigo (radium 223)dose of 55 KBq/ per kilo every 4 weeks for 6 doses on 04/05/16. 8. Received palliative radiotherapy to C2 vertebral body at [facility] in June 2017 because of increasing uptake on PET scan worrisome for metastasis. 9. He started zytiga Jul 2017 to Sep 2017. Discontinued for rising PSA. 10. He then received 6 cycles Taxotere from 10/25/17 to January 2018. MSI status on tumor, showed preserved expression of DNA mismatch repair proteins indicating lack of microsatellite instability. Patient?s genetic test result , extended my Risk dinner tick panel testing was negative. 11. Ketoconazole for 1 month apr/2017. 12. Was seen at [facility] by Dr. Jaqueline Ayala for second opinion as well as consideration of clinical trials, was recommended clinical trial with olaparib +/- Cederinib. If he decides against trial, options would be to reconsider Zytiga, chemotherapy with Cabazitaxel +/- Carboplatinum or Apalutamide. 13. Was on Apalutamide 240 mg once a day for about 3 months. Rising PSA. 14. Switched to Zytiga 1000 mg once a day with prednisone 5 mg b.i.d. from end of December 2018. 15. Discontinued 03/14/2019 because of rising PSA. 16. Started Cabazitaxel March 2019. Treated for Legionella pneumonia after cycle 1 17. Switched to Xtandi in September 2020 Interval History Interval history: Patient is here in follow-up. His left knee pain and swelling is better. However he had 1 or 2 falls as his left knee gave way and he lost balance. Fortunately he did not hurt himself seriously. No new symptoms to report other than achiness of his right shoulder and upper back. He continues to take care of his . Unfortunately his son has been diagnosed with invasive bladder cancer and is undergoing surgery in [place] in the following weeks. Review of Systems - Constitutional Reports system reviewed and no additional complaints, except as documented, Denies anorexia, Denies daytime sleepiness, Denies fatigue - Eyes Reports system reviewed and no additional complaints, except as documented - Cardiovascular Reports system reviewed and no additional complaints, except as documented - Respiratory Reports no additional respiratory complaints - Gastrointestinal Reports system reviewed and no additional complaints, except as documented - Genitourinary Genitourinary: Reports no additional male genitourinary complaints - Musculoskeletal Reports system reviewed and no additional complaints, except as documented - Integumentary/Breasts Skin/Breast: Reports no additional skin complaints - Neurologic Reports system reviewed and no additional complaints, except as documented - Psychiatric Reports system reviewed and no additional complaints, except as documented - Endocrine Reports no additional endocrine complaints - Hematologic/Lymphatic Reports system reviewed and no additional complaints, except as documented - Allergic/Immunologic Reports system reviewed and no additional complaints, except as documented PMFSH Medical History: Medical History (Last Reviewed 03/17/21 @ 10:17 by Silvana Cobb) Ascending aorta dilatation Hypercholesteremia Hypothyroidism Legionella pneumonia Non-rheumatic aortic regurgitation 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 Mother No problems noted. Surgical History: Surgical History (Last Reviewed 03/17/21 @ 10:17 by Silvana Cobb) H/O hernia repair History of appendectomy History of shoulder surgery Social History: Social History (Last Reviewed 03/17/21 @ 10:17 by Silvana Cobb) Living Situation History: Household Members: Spouse Alcohol History: Alcohol intake: current Alcohol History Details: Alcohol intake frequency: holiday/special occasion Occupation Assessmet: Current occupational status: retired Current occupation: right \handed Home Medications and Allergies Current Medications: Current Medications Generic Name Dose Route Start Last Admin Trade Name Freq PRN Reason Stop Dose Admin Denosumab 120 mg 03/19/21 00:00 Denosumab 120 Mg/1.7 Ml Vial SUBCUT 03/19/21 23:59 ONCE RAIMUNDO Home Medications Medication Instructions Recorded Confirmed Type denosumab [Xgeva] 120 mg SUBCUT Q4W 07/28/20 03/17/21 History leuprolide (6 month) [Eligard (6 45 mg SUBCUT [id number] 07/28/20 03/17/21 History month)] omeprazole magnesium 20 mg 20 mg PO DAILY PRN 12/18/20 03/17/21 History capsule,delayed release enzalutamide 80 mg tablet 160 mg PO DAILY 03/17/21 03/17/21 History Allergies Allergy/AdvReac Type Severity Reaction Status Date / Time No Known Allergies Allergy Verified 03/17/21 10:00 Exam Vital signs: Vital Signs Temp 97.8 F 02/24/21 10:15 Pulse 76 02/24/21 10:15 Resp 14 02/24/21 10:15 BP 133/82 02/24/21 10:15 Pulse Ox 96 02/24/21 10:15 Weight 89.1 kg Body Mass Index 29.0 - Constitutional Present: no acute distress - Routine HEENT Exam Head: Present: normal inspection - Routine Neck Exam Present: full ROM. Absent: lymphadenopathy - Routine Respiratory Exam Present: CTAB - Routine Cardiovascular Exam Cardiovascular: Present: RRR, S1, S2 - Routine Abdominal Exam Present: soft - Routine Extremities Exam Present: full ROM, joint swelling. Absent: calf tenderness, pedal edema, tenderness - Routine Skin Exam Present: intact. Absent: cyanosis, erythema Data - Labs CBC & Chem 7: 11/23/20 09:17 11/23/20 09:17 Labs: 07/28/20 00:00 0.9 % Sodium Chloride [Ns] 500 ml IVCONT 250 mls/hr Cabazitaxel [Jevtana] 40 mg 0.9 % Sodium Chloride 250 ml IV ONCE Denosumab [Xgeva] 120 mg SUBCUT ONCE Famotidine/PF [Pepcid/PF] 20 mg IVPUSH ONCE Heparin Sodium,Porcine Flush 500 unit IVFLUSH ONCE dexAMETHasone sod phosphate/NS [Decadron] 12 mg in 50 ml IV ONCE diphenhydrAMINE HCL [Benadryl] 25 mg PO ONCE ondansetron HCL/NS [Zofran] 16 mg in 50 ml IV ONCE 07/28/20 11:50 XR chest 2V Routine XR knee RT 4V Routine XR shoulder RT min 2V Routine 09/01/20 00:00 Cabazitaxel [Jevtana] 40 mg 0.9 % Sodium Chloride 250 ml IV ONCE Denosumab [Xgeva] 120 mg SUBCUT ONCE Famotidine/PF [Pepcid/PF] 20 mg IVPUSH ONCE Heparin Sodium,Porcine Flush 500 unit IVFLUSH ONCE dexAMETHasone sod phosphate/NS [Decadron] 12 mg in 50 ml IV ONCE diphenhydrAMINE HCL [Benadryl] 25 mg PO ONCE ondansetron HCL/NS [Zofran] 16 mg in 50 ml IV ONCE 09/08/20 00:00 Leuprolide Acetate [Eligard] 45 mg SUBCUT ONCE 10/07/20 00:00 Denosumab [Xgeva] 120 mg SUBCUT ONCE Laboratory Tests 03/28/19 06/22/20 10/20/20 19:09 10:00 09:04 WBC 4.1 L Hgb 11.9 L Hct 37.2 L Plt Count 265 Sodium Potassium Chloride Carbon Dioxide Bicarbonate 24 Anion Gap BUN Creatinine Direct Bilirubin 0.4 Total Bilirubin AST ALT Alkaline Phosphatase Prostate Specific Ag 10/20/20 09:04 WBC Hgb Hct Plt Count Sodium 141 Potassium 4.0 Chloride 106 Carbon Dioxide 27 Bicarbonate Anion Gap 12 BUN 20 H Creatinine 1.02 Direct Bilirubin Total Bilirubin 0.6 AST 22 ALT 38 Alkaline Phosphatase 102 Prostate Specific Ag 17.63 H - Imaging Radiologist's impression: ITS Impressions Chest X-Ray 07/28/20 11:50 IMPRESSION: No evidence for acute disease in the chest. Sclerotic bone disease similar to previous exams. EXAMINATION: Right shoulder x-ray CLINICAL INFORMATION: Pain COMPARISON: None. TECHNIQUE: 4 views of the right shoulder FINDINGS: Bone alignment is normal. No fracture or dislocation is seen. The glenohumeral joint is normal. There is arthritis at the acromioclavicular joint. There is evidence of diffuse sclerotic bone disease. Soft tissues are unremarkable. IMPRESSION: Sclerotic bone disease. Arthritis at the acromioclavicular joint. EXAMINATION: Right knee x-ray CLINICAL INFORMATION: Pain COMPARISON: None. TECHNIQUE: 4 views right knee FINDINGS: Bone alignment is normal. No fracture or dislocation is seen. The joint spaces are normal. There is no joint effusion. IMPRESSION: Unremarkable exam. Knee X-Ray 07/28/20 11:50 IMPRESSION: No evidence for acute disease in the chest. Sclerotic bone disease similar to previous exams. EXAMINATION: Right shoulder x-ray CLINICAL INFORMATION: Pain COMPARISON: None. TECHNIQUE: 4 views of the right shoulder FINDINGS: Bone alignment is normal. No fracture or dislocation is seen. The glenohumeral joint is normal. There is arthritis at the acromioclavicular joint. There is evidence of diffuse sclerotic bone disease. Soft tissues are unremarkable. IMPRESSION: Sclerotic bone disease. Arthritis at the acromioclavicular joint. EXAMINATION: Right knee x-ray CLINICAL INFORMATION: Pain COMPARISON: None. TECHNIQUE: 4 views right knee FINDINGS: Bone alignment is normal. No fracture or dislocation is seen. The joint spaces are normal. There is no joint effusion. IMPRESSION: Unremarkable exam. Shoulder X-Ray 07/28/20 11:50 IMPRESSION: No evidence for acute disease in the chest. Sclerotic bone disease similar to previous exams. EXAMINATION: Right shoulder x-ray CLINICAL INFORMATION: Pain COMPARISON: None. TECHNIQUE: 4 views of the right shoulder FINDINGS: Bone alignment is normal. No fracture or dislocation is seen. The glenohumeral joint is normal. There is arthritis at the acromioclavicular joint. There is evidence of diffuse sclerotic bone disease. Soft tissues are unremarkable. IMPRESSION: Sclerotic bone disease. Arthritis at the acromioclavicular joint. EXAMINATION: Right knee x-ray CLINICAL INFORMATION: Pain COMPARISON: None. TECHNIQUE: 4 views right knee FINDINGS: Bone alignment is normal. No fracture or dislocation is seen. The joint spaces are normal. There is no joint effusion. IMPRESSION: Unremarkable exam. Progress Note: A/P (1) Prostate cancer metastatic to bone Status: Chronic Assessment and plan: 1. 1. This is a 80 year-old male with metastatic Prostate Cancer, Bone Metasta ses diagnosed in 2012. pMSI. BRCA 10/05 negative. He is on LHRH agonist q 6 months. On monthly denosumab. He started Xtandi 160 daily since September 2020 He is tolerating treatment well. He is getting Eligard injections every 6 months with his urologist. He does have some chronic aches and pains. Repeat bone scan in December 2020 showed progression of disease with bulk of disease in his spine, sternum and right humerus. PSA is rising. He will need to be switched, Xtandi is no longer working. I discussed starting patient on olaparib 300 mg b.i.d.. BRCA mutation is negative, Homologous recom bination repair gene mutation to be performed if possible. We discussed performing biopsy in order to submit HRD. I discussed possibility of receiving newly approved treatment for prostate cancer, Kirsten labeled [id number] for PSMA positive tumors/metastasis. PSMA PET-CT would also have to be performed prior to treatment. I have placed a call to [facility] ( he saw Dr. Ayala ) to see if this treatment is available. 2. Recurrent right knee effusion, most likely inflammatory. He is being follow ed by Orthopedics. He is on a prednisone taper. Follow-up in 1 month. - Time Spent With Patient 15 - 24 minutes
[2021-03-19 09:59] VITALS: BP 169/77; PULSE 77; RESP 18; TEMP 36.6; O2SAT 97; BMI 29.0
--- NOTE | 2021-03-19 11:18 | MHC.HEMONC ---
Spoke to Callie at [facility] office of Urology re: this pt. Dr Gonzalez is asking if Dr Ayala (pt had seen in past) is providing patients with metastatic prostate cancer the drug PyLarify . Callie will send out message urgently to provide information to our staff if this is an option for Mr Morgan.
--- NOTE | 2021-03-19 12:01 | MHC.HEMONC ---
Pt here for denosumab and follow up with Dr Gonzalez. Feeling ok except continues to have pain and swelling in his right knee. Had labs done 03/18 and were reviewed. Has CT scan scheduled for Thursday 03/22. Dr Gonzalez in to see pt. Scheduled to return in 1 month.
--- NOTE | 2021-03-22 12:04 | MHC.HEMONC ---
Progress note sent to Dr Ayala sent to [facility] for review to see if pt could be seen and offered treatment for his metastatic prostate cancer. (pt had been seen by her several years ago) Fax - [phone]
--- NOTE | 2021-03-22 15:31 | MHC.HEMONC ---
PT WILL BE NEEDING MRI OF ABDOMEN PER DR MARKS S/P CT TODAY. I CALLED HIM AND TOLD HIM AND THE ORDER WAS GIVEN TO ABBY LOIVIA FOR FOLLOW THROUGH.
--- NOTE | 2021-03-24 14:35 | MHC.HEMONC ---
Pt here following MRI and stopped by to say that his appt at [facility] is on 04/19/[address] Gonzalez aware.
--- NOTE | 2021-04-14 11:43 | MHC.HEMONC ---
Requested Imaging Disks from May 2018 until now for CI appt per pt. Radiology informed. Pt to fruit picker on Monday.
[2021-04-16 10:14] VITALS: BP 136/75; PULSE 85; RESP 18; TEMP 37.1; O2SAT 96; BMI 29.2
--- NOTE | 2021-04-16 11:01 | MHC.HEMONC ---
Addendum entered by Aminah Spears RN 04/16/21 11:03: Exam with Dr Gonzalez. Labs from 04/15/2021 reviewed with patient. Medications/Clinical Summary updated by this RN. Patient c/o R knee pain. Dr Gonzalez informed. Patient obtained films from Radiology for upcoming appointment. Denosumab injection administered in [place]. Next injection scheduled for 05/14/2021. Original Note: Exam with Dr Gonzalez. Labs from 04/15/2021 reviewed with patient. Medical
--- NOTE | 2021-04-16 11:27 | P.PNHO_ITS ---
Medical Summary - Medical Summary Date of Service: 04/16/21 Chief complaint: Follow-up Medical Summary: DIAGNOSIS: Mr. Morgan was diagnosed with prostate cancer in 2006. THERAPY: 1. He underwent radical retropubic prostatectomy with bilateral pelvic lymphadenectomy on March 31, 2007. He was staged as a T3a [place]'s 4 + 3 prostate adenocarcinoma. 2. He underwent ERBT postoperatively in 2007 for a rising PSA. 3. He was diagnosed with metastatic disease, bony metastasis sometime in 2011 and has been on hormonal manipulation under the care of his urologist Dr. Oreilly. Repeat imaging: Restaging with a PET scan May 14, 2014 showed mild hypermetabolic activity in the right L2 pedicle SUV of 3.4, T11, T12 and T10 SUV of 5.28, and T5, T4 and T3 vertebrae with only residual sites of disease. No additional hypermetabolic activity in the skeleton, and no lymphadenopathy. Diffuse sclerotic lesions throughout cervical, dorsal, lumbar sacral spine, iliac bones and bilateral ribs consistent with old metastatic disease. PSA on May 02, 2014, 25.6 and total testosterone less than 1 ng/dL. 4. After oncology consultation in apr 2014, patient started Denosumab (Xgeva)120 mg subcu monthly, since June 02, 2014. 5. Because of rising PSA noted in July 2014 when it reggie 61, the patient was taken off Casodex. 6. The patient started Xtandi or enzalutamide at a dose of 160 mg once daily on October 14, 2014. 7. Started Xofigo (radium 223)dose of 55 KBq/ per kilo every 4 weeks for 6 doses on 04/05/16. 8. Received palliative radiotherapy to C2 vertebral body at [facility] in June 2017 because of increasing uptake on PET scan worrisome for metastasis. 9. He started zytiga Jul 2017 to Sep 2017. Discontinued for rising PSA. 10. He then received 6 cycles Taxotere from 10/25/17 to January 2018. MSI status on tumor, showed preserved expression of DNA mismatch repair proteins indicating lack of microsatellite instability. Patient?s genetic test result , extended my Risk dinner tick panel testing was negative. 11. Ketoconazole for 1 month apr/2017. 12. Was seen at [facility] by Dr. Jaqueline Ayala for second opinion as well as consideration of clinical trials, was recommended clinical trial with olaparib +/- Cederinib. If he decides against trial, options would be to reconsider Zytiga, chemotherapy with Cabazitaxel +/- Carboplatinum or Apalutamide. 13. Was on Apalutamide 240 mg once a day for about 3 months. Rising PSA. 14. Switched to Zytiga 1000 mg once a day with prednisone 5 mg b.i.d. from end of December 2018. 15. Discontinued 03/14/2019 because of rising PSA. 16. Started Cabazitaxel March 2019. Treated for Legionella pneumonia after cycle 1 17. Switched to Xtandi in September 2020 Interval History Interval history: Patient is here in follow-up. He is doing okay, continues to have some aches and pains mostly on the right side of his body. Right shoulder, chest area as well as right knee. His right knee is getting better, swelling has come down. He is taking Xtandi. He is scheduled to see oncologist at [facility] this Monday. Review of Systems - Constitutional Reports as per HPI, Denies anorexia, Reports body aches, Denies headache(s), Denies lack of energy - Cardiovascular Reports no additional cardiovascular complaints - Respiratory Reports no additional respiratory complaints - Gastrointestinal Reports no additional gastrointestinal complaints - Neurologic Reports no additional neurologic complaints [facility] Medical History: Medical History (Last Reviewed 04/16/21 @ 11:00 by Aminah Spears RN) Ascending aorta dilatation Hypercholesteremia Hypothyroidism Legionella pneumonia Non-rheumatic aortic regurgitation 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 Mother No problems noted. Surgical History: Surgical History (Last Reviewed 04/16/21 @ 11:00 by Aminah Spears RN) H/O hernia repair History of appendectomy History of shoulder surgery Social History: Social History (Last Reviewed 04/16/21 @ 11:00 by Aminah Spears RN) Living Situation History: Household Members: Spouse Alcohol History: Alcohol intake: current Alcohol History Details: Alcohol intake frequency: holiday/special occasion Occupation Assessmet: Current occupational status: retired Current occupation: right \handed Oncology Screenings - ECOG Performance Status ECOG Performance Status: 1 Home Medications and Allergies Current Medications: Current Medications Generic Name Dose Route Start Last Admin Trade Name Freq PRN Reason Stop Dose Admin Denosumab 120 mg 04/16/21 00:00 04/16/21 10:25 Denosumab 120 Mg/1.7 Ml Vial SUBCUT 04/16/21 23:59 120 mg ONCE RAIMUNDO Administration Home Medications Medication Instructions Recorded Confirmed Type denosumab [Xgeva] 120 mg SUBCUT Q4W 07/28/20 04/16/21 History leuprolide (6 month) [Eligard (6 45 mg SUBCUT [id number] 07/28/20 04/16/21 History month)] omeprazole magnesium 20 mg 20 mg PO DAILY PRN 12/18/20 04/16/21 History capsule,delayed release enzalutamide 80 mg tablet 160 mg PO DAILY 03/17/21 04/16/21 History Allergies Allergy/AdvReac Type Severity Reaction Status Date / Time No Known Allergies Allergy Verified 03/17/21 10:00 Exam Vital signs: Vital Signs Temp 98.8 F 04/16/21 10:14 Pulse 85 04/16/21 10:14 Resp 18 04/16/21 10:14 BP 136/75 04/16/21 10:14 Pulse Ox 96 04/16/21 10:14 Intake & Output 04/15/21 04/16/21 04/16/21 18:59 06:59 18:59 Other: Weight 89.9 kg [place] Weight in Grams 33690 Weight 89.9 kg Body Mass Index 29.2 - Constitutional Present: no acute distress - Routine HEENT Exam Head: Present: normal inspection - Routine Neck Exam Present: full ROM. Absent: lymphadenopathy - Routine Respiratory Exam Present: CTAB - Routine Cardiovascular Exam Cardiovascular: Present: RRR, S1, S2 - Routine Abdominal Exam Present: soft - Routine Extremities Exam Present: full ROM, joint swelling. Absent: calf tenderness, pedal edema, tenderness - Routine Skin Exam Present: intact. Absent: cyanosis, erythema Data - Labs CBC & Chem 7: 11/23/20 09:17 11/23/20 09:17 Labs: 07/28/20 00:00 0.9 % Sodium Chloride [Ns] 500 ml IVCONT 250 mls/hr Cabazitaxel [Jevtana] 40 mg 0.9 % Sodium Chloride 250 ml IV ONCE Denosumab [Xgeva] 120 mg SUBCUT ONCE Famotidine/PF [Pepcid/PF] 20 mg IVPUSH ONCE Heparin Sodium,Porcine Flush 500 unit IVFLUSH ONCE dexAMETHasone sod phosphate/NS [Decadron] 12 mg in 50 ml IV ONCE diphenhydrAMINE HCL [Benadryl] 25 mg PO ONCE ondansetron HCL/NS [Zofran] 16 mg in 50 ml IV ONCE 07/28/20 11:50 XR chest 2V Routine XR knee RT 4V Routine XR shoulder RT min 2V Routine 09/01/20 00:00 Cabazitaxel [Jevtana] 40 mg 0.9 % Sodium Chloride 250 ml IV ONCE Denosumab [Xgeva] 120 mg SUBCUT ONCE Famotidine/PF [Pepcid/PF] 20 mg IVPUSH ONCE Heparin Sodium,Porcine Flush 500 unit IVFLUSH ONCE dexAMETHasone sod phosphate/NS [Decadron] 12 mg in 50 ml IV ONCE diphenhydrAMINE HCL [Benadryl] 25 mg PO ONCE ondansetron HCL/NS [Zofran] 16 mg in 50 ml IV ONCE 09/08/20 00:00 Leuprolide Acetate [Eligard] 45 mg SUBCUT ONCE 10/07/20 00:00 Denosumab [Xgeva] 120 mg SUBCUT ONCE Laboratory Tests 03/28/19 06/22/20 10/20/20 19:09 10:00 09:04 WBC 4.1 L Hgb 11.9 L Hct 37.2 L Plt Count 265 Sodium Potassium Chloride Carbon Dioxide Bicarbonate 24 Anion Gap BUN Creatinine Direct Bilirubin 0.4 Total Bilirubin AST ALT Alkaline Phosphatase Prostate Specific Ag 10/20/20 09:04 WBC Hgb Hct Plt Count Sodium 141 Potassium 4.0 Chloride 106 Carbon Dioxide 27 Bicarbonate Anion Gap 12 BUN 20 H Creatinine 1.02 Direct Bilirubin Total Bilirubin 0.6 AST 22 ALT 38 Alkaline Phosphatase 102 Prostate Specific Ag 17.63 H - Imaging Radiologist's impression: ITS Impressions Chest X-Ray 07/28/20 11:50 IMPRESSION: No evidence for acute disease in the chest. Sclerotic bone disease similar to previous exams. EXAMINATION: Right shoulder x-ray CLINICAL INFORMATION: Pain COMPARISON: None. TECHNIQUE: 4 views of the right shoulder FINDINGS: Bone alignment is normal. No fracture or dislocation is seen. The glenohumeral joint is normal. There is arthritis at the acromioclavicular joint. There is evidence of diffuse sclerotic bone disease. Soft tissues are unremarkable. IMPRESSION: Sclerotic bone disease. Arthritis at the acromioclavicular joint. EXAMINATION: Right knee x-ray CLINICAL INFORMATION: Pain COMPARISON: None. TECHNIQUE: 4 views right knee FINDINGS: Bone alignment is normal. No fracture or dislocation is seen. The joint spaces are normal. There is no joint effusion. IMPRESSION: Unremarkable exam. Knee X-Ray 07/28/20 11:50 IMPRESSION: No evidence for acute disease in the chest. Sclerotic bone disease similar to previous exams. EXAMINATION: Right shoulder x-ray CLINICAL INFORMATION: Pain COMPARISON: None. TECHNIQUE: 4 views of the right shoulder FINDINGS: Bone alignment is normal. No fracture or dislocation is seen. The glenohumeral joint is normal. There is arthritis at the acromioclavicular joint. There is evidence of diffuse sclerotic bone disease. Soft tissues are unremarkable. IMPRESSION: Sclerotic bone disease. Arthritis at the acromioclavicular joint. EXAMINATION: Right knee x-ray CLINICAL INFORMATION: Pain COMPARISON: None. TECHNIQUE: 4 views right knee FINDINGS: Bone alignment is normal. No fracture or dislocation is seen. The joint spaces are normal. There is no joint effusion. IMPRESSION: Unremarkable exam. Shoulder X-Ray 07/28/20 11:50 IMPRESSION: No evidence for acute disease in the chest. Sclerotic bone disease similar to previous exams. EXAMINATION: Right shoulder x-ray CLINICAL INFORMATION: Pain COMPARISON: None. TECHNIQUE: 4 views of the right shoulder FINDINGS: Bone alignment is normal. No fracture or dislocation is seen. The glenohumeral joint is normal. There is arthritis at the acromioclavicular joint. There is evidence of diffuse sclerotic bone disease. Soft tissues are unremarkable. IMPRESSION: Sclerotic bone disease. Arthritis at the acromioclavicular joint. EXAMINATION: Right knee x-ray CLINICAL INFORMATION: Pain COMPARISON: None. TECHNIQUE: 4 views right knee FINDINGS: Bone alignment is normal. No fracture or dislocation is seen. The joint spaces are normal. There is no joint effusion. IMPRESSION: Unremarkable exam. Progress Note: A/P (1) Prostate cancer metastatic to bone Status: Chronic Assessment and plan: 1. 1. This is a 80 year-old male with metastatic Prostate Cancer, Bone Metastases diagnosed in 2012. pMSI. BRCA 10/05 negative. He is on LHRH agonist q 6 months. On monthly denosumab. He started Xtandi 160 daily since September 2020 He is tolerating treatment well. He is getting Eligard injections every 6 months with his urologist. He does have some chronic aches and pains. Repeat bone scan in December 2020 showed progression of disease with bulk of disease in his spine, sternum and right humerus. PSA is rising. Olaparib was not approved by insurance carrier. BRCA mutation is negative, Homologous recombination repair gene mutation to be performed if possible. We discussed performing biopsy in order to submit HRD. I discussed possibility of receiving newly approved treatment for prostate cancer, Kirsten labeled [id number] for PSMA positive tumors/metastasis. PSMA PET-CT would also have to be performed prior to treatment. He has an appointment at [facility] ( he previously saw Dr. Ayala ) on 04/19/2021. Labs reviewed with patient, his PSA on 04/15/2021 has gone up to 35.6. Await input from 2nd opinion referral at [facility]. Denosumab administered today. Follow-up in 1 month. - Time Spent With Patient Time Spent with Patient (in minutes): 15
--- NOTE | 2021-04-22 13:23 | MHC.HEMONC ---
ct biopsy of bone in pending status in radiology.
--- NOTE | 2021-04-23 10:52 | MHC.HEMONC ---
Called [facility] in order to refer pt for possible treatment with [id number]. I spoke with Susannah at [facility] and gave her pt demographics. She said the Team would reach out to him. Pt will need to decide at that time if he is interested in booking with Radiology before receiving treatment or if he just wants to have Consultation with Oncologist there.
--- NOTE | 2021-04-23 11:14 | MHC.HEMONC ---
CT BIOPSY SCHEDULED FOR 05/06/21 at 12:30pm. PT NOTIFIED
--- NOTE | 2021-04-29 15:17 | MHC.HEMONC ---
Susannah in Radiology at [facility] can be reached at [phone] re: pt pending appt for [id number]
[2021-05-14 09:38] VITALS: BP 144/73; PULSE 81; RESP 18; TEMP 36.4; O2SAT 95; BMI 29.1
--- NOTE | 2021-05-14 15:20 | PM.HEMONCPN ---
Medical Summary - Medical Summary Date of Service: 05/14/21 Chief complaint: Follow-up Medical Summary: DIAGNOSIS: Mr. Morgan was diagnosed with prostate cancer in 2006. THERAPY: 1. He underwent radical retropubic prostatectomy with bilateral pelvic lymphadenectomy on March 31, 2007. He was staged as a T3a [place]'s 4 + 3 prostate adenocarcinoma. 2. He underwent ERBT postoperatively in 2007 for a rising PSA. 3. He was diagnosed with metastatic disease, bony metastasis sometime in 2011 and has been on hormonal manipulation under the care of his urologist Dr. Oreilly. Repeat imaging: Restaging with a PET scan May 14, 2014 showed mild hypermetabolic activity in the right L2 pedicle SUV of 3.4, T11, T12 and T10 SUV of 5.28, and T5, T4 and T3 vertebrae with only residual sites of disease. No additional hypermetabolic activity in the skeleton, and no lymphadenopathy. Diffuse sclerotic lesions throughout cervical, dorsal, lumbar sacral spine, iliac bones and bilateral ribs consistent with old metastatic disease. PSA on May 02, 2014, 25.6 and total testosterone less than 1 ng/dL. 4. After oncology consultation in apr 2014, patient started Denosumab (Xgeva)120 mg subcu monthly, since June 02, 2014. 5. Because of rising PSA noted in July 2014 when it reggie 61, the patient was taken off Casodex. 6. The patient started Xtandi or enzalutamide at a dose of 160 mg once daily on October 14, 2014. 7. Started Xofigo (radium 223)dose of 55 KBq/ per kilo every 4 weeks for 6 doses on 04/05/16. 8. Received palliative radiotherapy to C2 vertebral body at [facility] in June 2017 because of increasing uptake on PET scan worrisome for metastasis. 9. He started zytiga Jul 2017 to Sep 2017. Discontinued for rising PSA. 10. He then received 6 cycles Taxotere from 10/25/17 to January 2018. MSI status on tumor, showed preserved expression of DNA mismatch repair proteins indicating lack of microsatellite instability. Patient?s genetic test result , extended my Risk dinner tick panel testing was negative. 11. Ketoconazole for 1 month apr/2017. 12. Was seen at [facility] by Dr. Jaqueline Ayala for second opinion as well as consideration of clinical trials, was recommended clinical trial with olaparib +/- Cederinib. If he decides against trial, options would be to reconsider Zytiga, chemotherapy with Cabazitaxel +/- Carboplatinum or Apalutamide. 13. Was on Apalutamide 240 mg once a day for about 3 months. Rising PSA. 14. Switched to Zytiga 1000 mg once a day with prednisone 5 mg b.i.d. from end of December 2018. 15. Discontinued 03/14/2019 because of rising PSA. 16. Started Cabazitaxel March 2019. Treated for Legionella pneumonia after cycle 1 17. Switched to Xtandi in September 2020 Interval History Interval history: patient is here in follow-up. His main complaint is diffuse arthralgias more so in his knees and now balls of his feet. He continues to have mild swelling of the right knee. He denies loss of appetite or weight loss. No excess fatigue. No fever or chills. He has been taking Xtandi daily. He has had iliac crest biopsy. He is awaiting to see specialist in [place] for his cancer treatment. Review of Systems - Constitutional Reports as per HPI, Reports no additional constitutional complaints - Cardiovascular Reports no additional cardiovascular complaints - Respiratory Reports no additional respiratory complaints - Gastrointestinal Reports no additional gastrointestinal complaints - Neurologic Reports no additional neurologic complaints, Denies headache(s) [facility] Medical History: Medical History (Last Reviewed 05/14/21 @ 09:44 by Aminah Spears RN) Ascending aorta dilatation Hypercholesteremia Hypothyroidism Legionella pneumonia Non-rheumatic aortic regurgitation 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 Mother No problems noted. Surgical History: Surgical History (Last Reviewed 05/14/21 @ 09:45 by Aminah Spears RN) H/O hernia repair History of appendectomy History of shoulder surgery Social History: Social History (Last Reviewed 05/14/21 @ 09:45 by Aminah Spears RN) Living Situation History: Household Members: Spouse Alcohol History: Alcohol intake: current Alcohol History Details: Alcohol intake frequency: holiday/special occasion Occupation Assessmet: Current occupational status: retired Current occupation: right \handed Oncology Screenings - ECOG Performance Status ECOG Performance Status: 1 Home Medications and Allergies Current Medications: Current Medications Generic Name Dose Route Start Last Admin Trade Name Remy PRN Reason Stop Dose Admin Denosumab 120 mg 05/14/21 00:00 05/14/21 09:50 Denosumab 120 Mg/1.7 Ml Vial SUBCUT 05/14/21 23:59 120 mg ONCE RAIMUNDO Administration Home Medications Medication Instructions Recorded Confirmed Type denosumab 120 mg/1.7 mL (70 mg/mL) 120 mg SUBCUT Q4W 07/28/20 05/14/21 History subcutaneous solution (Xgeva) leuprolide (6 month) 45 mg (6 45 mg SUBCUT [id number] 07/28/20 05/14/21 History month) subcutaneous syringe (Eligard) omeprazole magnesium 20 mg 20 mg PO DAILY PRN 12/18/20 05/14/21 History capsule,delayed release enzalutamide 80 mg tablet (Xtandi) 160 mg PO DAILY 03/17/21 05/14/21 History Allergies Allergy/AdvReac Type Severity Reaction Status Date / Time No Known Allergies Allergy Verified 05/06/21 11:47 Exam Vital signs: Vital Signs Temp 97.6 F 05/14/21 09:38 Pulse 81 05/14/21 09:38 Resp 18 05/14/21 09:38 BP 144/73 H 05/14/21 09:38 Pulse Ox 95 05/14/21 09:38 Intake & Output 05/13/21 05/14/21 05/14/21 18:59 06:59 18:59 Other: Weight 89.6 kg Weight in Grams 23224 Weight 89.6 kg Body Mass Index 29.1 - Constitutional Present: no acute distress - Routine HEENT Exam Head: Present: normal inspection - Routine Neck Exam Present: full ROM. Absent: lymphadenopathy - Routine Respiratory Exam Present: CTAB - Routine Cardiovascular Exam Cardiovascular: Present: RRR, S1, S2 - Routine Abdominal Exam Present: soft - Routine Extremities Exam Present: full ROM, joint swelling. Absent: calf tenderness, pedal edema, tenderness - Routine Skin Exam Present: intact. Absent: cyanosis, erythema Data - Labs CBC & Chem 7: 11/23/20 09:17 11/23/20 09:17 Labs: 07/28/20 00:00 0.9 % Sodium Chloride [Ns] 500 ml IVCONT 250 mls/hr Cabazitaxel [Jevtana] 40 mg 0.9 % Sodium Chloride 250 ml IV ONCE Denosumab [Xgeva] 120 mg SUBCUT ONCE Famotidine/PF [Pepcid/PF] 20 mg IVPUSH ONCE Heparin Sodium,Porcine Flush 500 unit IVFLUSH ONCE dexAMETHasone sod phosphate/NS [Decadron] 12 mg in 50 ml IV ONCE diphenhydrAMINE HCL [Benadryl] 25 mg PO ONCE ondansetron HCL/NS [Zofran] 16 mg in 50 ml IV ONCE 07/28/20 11:50 XR chest 2V Routine XR knee RT 4V Routine XR shoulder RT min 2V Routine 09/01/20 00:00 Cabazitaxel [Jevtana] 40 mg 0.9 % Sodium Chloride 250 ml IV ONCE Denosumab [Xgeva] 120 mg SUBCUT ONCE Famotidine/PF [Pepcid/PF] 20 mg IVPUSH ONCE Heparin Sodium,Porcine Flush 500 unit IVFLUSH ONCE dexAMETHasone sod phosphate/NS [Decadron] 12 mg in 50 ml IV ONCE diphenhydrAMINE HCL [Benadryl] 25 mg PO ONCE ondansetron HCL/NS [Zofran] 16 mg in 50 ml IV ONCE 09/08/20 00:00 Leuprolide Acetate [Eligard] 45 mg SUBCUT ONCE 10/07/20 00:00 Denosumab [Xgeva] 120 mg SUBCUT ONCE Laboratory Tests 03/28/19 06/22/20 10/20/20 19:09 10:00 09:04 WBC 4.1 L Hgb 11.9 L Hct 37.2 L Plt Count 265 Sodium Potassium Chloride Carbon Dioxide Bicarbonate 24 Anion Gap BUN Creatinine Direct Bilirubin 0.4 Total Bilirubin AST ALT Alkaline Phosphatase Prostate Specific Ag 10/20/20 09:04 WBC Hgb Hct Plt Count Sodium 141 Potassium 4.0 Chloride 106 Carbon Dioxide 27 Bicarbonate Anion Gap 12 BUN 20 H Creatinine 1.02 Direct Bilirubin Total Bilirubin 0.6 AST 22 ALT 38 Alkaline Phosphatase 102 Prostate Specific Ag 17.63 H - Imaging Radiologist's impression: ITS Impressions Chest X-Ray 07/28/20 11:50 IMPRESSION: No evidence for acute disease in the chest. Sclerotic bone disease similar to previous exams. EXAMINATION: Right shoulder x-ray CLINICAL INFORMATION: Pain COMPARISON: None. TECHNIQUE: 4 views of the right shoulder FINDINGS: Bone alignment is normal. No fracture or dislocation is seen. The glenohumeral joint is normal. There is arthritis at the acromioclavicular joint. There is evidence of diffuse sclerotic bone disease. Soft tissues are unremarkable. IMPRESSION: Sclerotic bone disease. Arthritis at the acromioclavicular joint. EXAMINATION: Right knee x-ray CLINICAL INFORMATION: Pain COMPARISON: None. TECHNIQUE: 4 views right knee FINDINGS: Bone alignment is normal. No fracture or dislocation is seen. The joint spaces are normal. There is no joint effusion. IMPRESSION: Unremarkable exam. Knee X-Ray 07/28/20 11:50 IMPRESSION: No evidence for acute disease in the chest. Sclerotic bone disease similar to previous exams. EXAMINATION: Right shoulder x-ray CLINICAL INFORMATION: Pain COMPARISON: None. TECHNIQUE: 4 views of the right shoulder FINDINGS: Bone alignment is normal. No fracture or dislocation is seen. The glenohumeral joint is normal. There is arthritis at the acromioclavicular joint. There is evidence of diffuse sclerotic bone disease. Soft tissues are unremarkable. IMPRESSION: Sclerotic bone disease. Arthritis at the acromioclavicular joint. EXAMINATION: Right knee x-ray CLINICAL INFORMATION: Pain COMPARISON: None. TECHNIQUE: 4 views right knee FINDINGS: Bone alignment is normal. No fracture or dislocation is seen. The joint spaces are normal. There is no joint effusion. IMPRESSION: Unremarkable exam. Shoulder X-Ray 07/28/20 11:50 IMPRESSION: No evidence for acute disease in the chest. Sclerotic bone disease similar to previous exams. EXAMINATION: Right shoulder x-ray CLINICAL INFORMATION: Pain COMPARISON: None. TECHNIQUE: 4 views of the right shoulder FINDINGS: Bone alignment is normal. No fracture or dislocation is seen. The glenohumeral joint is normal. There is arthritis at the acromioclavicular joint. There is evidence of diffuse sclerotic bone disease. Soft tissues are unremarkable. IMPRESSION: Sclerotic bone disease. Arthritis at the acromioclavicular joint. EXAMINATION: Right knee x-ray CLINICAL INFORMATION: Pain COMPARISON: None. TECHNIQUE: 4 views right knee FINDINGS: Bone alignment is normal. No fracture or dislocation is seen. The joint spaces are normal. There is no joint effusion. IMPRESSION: Unremarkable exam. Progress Note: A/P (1) Prostate cancer metastatic to bone Status: Chronic Assessment and plan: 1. 1. This is a 80 year-old male with metastatic Prostate Cancer, Bone Metastases diagnosed in 2012. pMSI. BRCA 10/05 negative. He is on LHRH agonist q 6 months. On monthly denosumab. He started Xtandi 160 daily since September 2020 He is tolerating treatment well. He is getting Eligard injections every 6 months with his urologist. He does have some chronic aches and pains. Repeat bone scan in December 2020 showed progression of disease with bulk of disease in his spine, sternum and right humerus. Olaparib was not approved by insurance carrier. BRCA mutation is negative, Homologous recombination repair gene mutation to be performed if possible. He underwent iliac crest biopsy at the site of bony lesion, however, this was negative for any malignant cells. I discussed possibility of receiving newly approved treatment for prostate cancer, Kirsten labeled [id number] for PSMA positive tumors/metastasis. PSMA PET-CT would also have to be performed prior to treatment. He was seen at [facility] (Dr. Ayala ) on 04/19/2021, unfortunately they do not yet have this treatment. He is waiting for his appointment at [facility]. Since he has progressive disease, he is now being switched to chemotherapy with docetaxel and carboplatin. Enzalutamide will be discontinued. Labs reviewed with patient, his PSA on 04/15/2021 has gone up to 35.6. Denosumab administered today. Follow-up in 1 month. - Time Spent With Patient Time Spent with Patient (in minutes): 20
--- NOTE | 2021-05-14 15:46 | MHC.HEMONC ---
Patient in for Xgeva injection and chemotherapy teaching. Ca=8.9. Xgeva adminsitered in HUGO, patient tolerated it well. A discussion took place about upcoming chemotherapy infusions and a possible port placement. Chemotherapy infusion scheduled for 05/19/21.
--- NOTE | 2021-05-14 16:56 | MHC.HEMONC ---
PER [place], IF MEDICARE IS PRIME INSURANCE, ALL DRUGS FOR CHEMO INCLUDING emend AND NEULASTA ARE COVERED.
[2021-05-19 08:38] VITALS: BP 141/77; PULSE 81; RESP 20; TEMP 36.6; O2SAT 95; BMI 28.6
[2021-05-19] MEDS: Acetaminophen 325 MG TABLET 650 MG PO (09:46)
[2021-05-19] MEDS: diphenhydrAMINE HCL 25 MG TABLET PO (09:46)
[2021-05-19] MEDS: Famotidine/PF 20 MG/2 ML VIAL IVPUSH (09:47)
[2021-05-19] MEDS: dexAMETHasone sod phosphate/NS 12 MG/50 ML PIGGYBACK 200 MG IV (09:52)
[2021-05-19] MEDS: Fosaprepitant Dimeglumine 150 MG in 0.9 % Sodium Chloride 145 ML 300 MG IV (10:39)
--- NOTE | 2021-05-19 15:40 | MHC.HEMONC ---
Patient arrived for DOCEtaxel and CARBOplatin Cycle 1 infusion. Labs from 05/13 reviewed. IV access in left lower arm. No blood return present prior to chemotherapy infusion and patient c/o pain when IV was flushed. Site d/c'd and new IV placed in R lower arm. No blood return present prior to chemotherapy infusion, patient denied pain when IV was flushed. Chemotherapy infusion completed. Patient tolerated well. IV d/c'd at the conclusion of the therapy, no bleeding or erythema present. Neulasta injection scheduled for 05/20/21. Next infusion and Denosumab injection scheduled for 06/09/21. Home lab draws with [facility] to be scheduled for 06/01/21 and 06/08/21. Date for chest port placement pending.
--- NOTE | 2021-05-20 08:21 | MHC.HEMONC ---
left message for [facility] to fax notes in order to fax record to [facility] for Consultation.
--- NOTE | 2021-05-20 14:01 | HO.HEMONCPA ---
NO PA REQUIRED FOR NEULASTA ONPRO. DRUG COVERED UNDER MEDICAL BENEFITS.
[2021-05-20 15:45] VITALS: BP 137/66; PULSE 71; RESP 16; TEMP 37; O2SAT 96
--- NOTE | 2021-05-20 15:47 | MHC.HEMONC ---
Patient arrived for Neulasta injection. Medication administered in HUGO, patient tolerated it well. Weekly CBC w/auto diff and CMP to be drawn weekly on Tuesdays at home by [facility]. PT/INR added to 05/25/21 labs as Nixon is scheduled for Port insertion in IR on 05/27/21 @ 8:30am.
[2021-06-09 08:45] VITALS: BP 167/77; PULSE 96; RESP 18; TEMP 36.4; O2SAT 98; BMI 29.1
[2021-06-09] MEDS: diphenhydrAMINE HCL 25 MG TABLET PO (10:57)
[2021-06-09] MEDS: Acetaminophen 325 MG TABLET 650 MG PO (10:57)
[2021-06-09] MEDS: Famotidine/PF 20 MG/2 ML VIAL IVPUSH (11:02)
[2021-06-09] MEDS: dexAMETHasone sod phosphate/NS 12 MG/50 ML PIGGYBACK 200 MG IV (11:02)
[2021-06-09] MEDS: Fosaprepitant Dimeglumine 150 MG in 0.9 % Sodium Chloride 145 ML 300 MG IV (11:40)
--- NOTE | 2021-06-09 12:12 | MHC.HEMONC ---
Contact at [facility] is Jovanni Bauer: fax # [phone]. I faxed final bit of documentation from Urology to them and asked that they urgently call us with determination re: pt referral.
--- NOTE | 2021-06-09 13:52 | MHC.HEMONC ---
[facility] contact is Jovanni Bauer [phone] email : [email or web address] Francia Main [phone]
[2021-06-09] MEDS: Heparin Sodium,Porcine Flush 500 UNIT/5 ML SYRINGE IVFLUSH (14:29)
[2021-06-09] MEDS: Pegfilgrastim Onpro 6 MG/0.6 ML SYR.W..INJ SUBCUT (14:53)
--- NOTE | 2021-06-09 15:05 | MHC.HEMONC ---
re-faxed pt info requested by Darlene at [facility] so that pt can be booked for Consultation. Her number is [phone] and fax number is [phone]. Pt is aware.
--- NOTE | 2021-06-09 15:39 | MHC.HEMONC ---
Patient here for Cycle 2 Day 1 Docetaxel/Carboplatin. Right chest port accessed with blood positive return noted and labs drawn. Lab results from 06/08 reviewed - okay to receive treatment today. Patient pre-medicated with Tylenol and Benadryl PO, and Pepcid, Dexamethasone and Zofran IV. Docetaxel/Carboplatin given as ordered and patient tolerated it well. Positive blood return in port both pre and post chemotherapy infusion. Denosumab administered in REKHA and Neulasta OnPro placed on HUGO. Port flushed with Heparin and de-accessed. Next infusion scheduled for 06/30/2021. Discharge packet given. Patient departed the unit.
--- NOTE | 2021-06-16 15:54 | MHC.HEMONC ---
faxed a few remaining things to Darlene at [facility] as pt has appt there on Jul 06 ([place] location)
[2021-06-30 09:06] VITALS: BMI 29.6
[2021-06-30 09:12] VITALS: BP 139/82; PULSE 97; RESP 18; TEMP 36.3; O2SAT 100
[2021-06-30] MEDS: Acetaminophen 325 MG TABLET 650 MG PO (09:44)
[2021-06-30] MEDS: diphenhydrAMINE HCL 25 MG TABLET PO (09:45)
[2021-06-30] MEDS: Heparin Sodium,Porcine Flush 500 UNIT/5 ML SYRINGE IVFLUSH (09:46)
[2021-06-30] MEDS: Famotidine/PF 20 MG/2 ML VIAL IVPUSH (09:46)
[2021-06-30] MEDS: dexAMETHasone sod phosphate/NS 12 MG/50 ML PIGGYBACK 200 MG IV (09:46)
[2021-06-30] MEDS: Fosaprepitant Dimeglumine 150 MG in 0.9 % Sodium Chloride 145 ML 300 MG IV (09:54)
--- NOTE | 2021-06-30 12:26 | MHC.HEMONC ---
Pt here for C3D1 Docetaxel/Carboplatin. Port accessed with blood return noted. 0.9%NS infusing. Labs drawn yesterday reviewed-okay to receive treatment today. Pt states he feels well today. Dr Gonzalez into see pt. Pre medicated with Zofran 16mg IV, Decadron 12mg IV, Pepcid 20mg IV, Emend 150mg IV, Tylenol 650mg orally, Benadryl 25mg orally. Docetaxel/Carboplatin IV given as ordered-tolerated well. Port flushed with heparin and de accessed. Neulasta Onpro administered. Follow up appointment scheduled. Discharge packet given.
[2021-06-30] MEDS: Pegfilgrastim Onpro 6 MG/0.6 ML SYR.W..INJ SUBCUT (12:58)
[2021-07-07 09:37] VITALS: BP 126/65; PULSE 102; RESP 13; TEMP 36.4; O2SAT 96; BMI 29.7
--- NOTE | 2021-07-07 15:22 | MHC.HEMONC ---
Pt was seen at [facility] in [place] yesterday. He came in for Denosumab today and I was able to get lab report from his visit yesterday for reference.Report hand written by Dr Veronica Calderon (p) [phone] (f) [phone]. Will give Dr Gonzalez report that pt brought in.
--- NOTE | 2021-07-07 16:37 | MHC.HEMONC ---
Patient arrived for Densosumab injection. Calcium Level=8.6 on 07/06/2021 ([facility]). Medication administered and patient tolerated it well.
--- NOTE | 2021-07-13 10:36 | MHC.HEMONC ---
ldh,testosterone, psa added to weekly home draw, order sent to the lab
[2021-07-21 09:10] VITALS: BP 139/72; PULSE 100; RESP 16; TEMP 36.9; O2SAT 96; BMI 29.9
--- NOTE | 2021-07-21 10:16 | PM.HEMONCPN ---
Medical Summary - Medical Summary Date of Service: 07/21/21 Chief complaint: Follow-up Medical Summary: DIAGNOSIS: Mr. Morgan was diagnosed with prostate cancer in 2006. THERAPY: 1. He underwent radical retropubic prostatectomy with bilateral pelvic lymphadenectomy on March 31, 2007. He was staged as a T3a [place]'s 4 + 3 prostate adenocarcinoma. 2. He underwent ERBT postoperatively in 2007 for a rising PSA. 3. He was diagnosed with metastatic disease, bony metastasis sometime in 2011 and has been on hormonal manipulation under the care of his urologist Dr. Oreilly. Repeat imaging: Restaging with a PET scan May 14, 2014 showed mild hypermetabolic activity in the right L2 pedicle SUV of 3.4, T11, T12 and T10 SUV of 5.28, and T5, T4 and T3 vertebrae with only residual sites of disease. No additional hypermetabolic activity in the skeleton, and no lymphadenopathy. Diffuse sclerotic lesions throughout cervical, dorsal, lumbar sacral spine, iliac bones and bilateral ribs consistent with old metastatic disease. PSA on May 02, 2014, 25.6 and total testosterone less than 1 ng/dL. 4. After oncology consultation in apr 2014, patient started Denosumab (Xgeva)120 mg subcu monthly, since June 02, 2014. 5. Because of rising PSA noted in July 2014 when it reggie 61, the patient was taken off Casodex. 6. The patient started Xtandi or enzalutamide at a dose of 160 mg once daily on October 14, 2014. 7. Started Xofigo (radium 223)dose of 55 KBq/ per kilo every 4 weeks for 6 doses on 04/05/16. 8. Received palliative radiotherapy to C2 vertebral body at [facility] in June 2017 because of increasing uptake on PET scan worrisome for metastasis. 9. He started zytiga Jul 2017 to Sep 2017. Discontinued for rising PSA. 10. He then received 6 cycles Taxotere from 10/25/17 to January 2018. MSI status on tumor, showed preserved expression of DNA mismatch repair proteins indicating lack of microsatellite instability. Patient?s genetic test result , extended my Risk dinner tick panel testing was negative. 11. Ketoconazole for 1 month apr/2017. 12. Was seen at [facility] by Dr. Jaqueline Ayala for second opinion as well as consideration of clinical trials, was recommended clinical trial with olaparib +/- Cederinib. If he decides against trial, options would be to reconsider Zytiga, chemotherapy with Cabazitaxel +/- Carboplatinum or Apalutamide. 13. Was on Apalutamide 240 mg once a day for about 3 months. Rising PSA. 14. Switched to Zytiga 1000 mg once a day with prednisone 5 mg b.i.d. from end of December 2018. 15. Discontinued 03/14/2019 because of rising PSA. 16. Started Cabazitaxel March 2019. Treated for Legionella pneumonia after cycle 1 17. Switched to Xtandi in September 2020 18. Started back on docetaxel but added carboplatin since 05/19/2021 because of progressive disease. Olaparib was not approved by insurance carrier. BRCA mutation is negative, Homologous recombination repair gene mutation to be performed if possible. He underwent iliac crest biopsy at the site of bony lesion, however, this was negative for any malignant cells. Interval History Interval history: patient is here in follow-up. He is tolerating chemotherapy quite well. He does note alopecia. Arthralgias have resolved but his right knee swelling has recurred. He has another appointment to see his orthopedist. He denies loss of appetite or weight loss. He reports fatigue. No fever or chills. He is awaiting PSMA scan, he was seen by specialist at [facility]. 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 Mother No problems noted. Surgical History: Surgical History (Last Reviewed 07/07/21 @ 09:40 by Mabel Buck) H/O hernia repair History of appendectomy History of shoulder surgery Social History: Social History (Last Reviewed 07/07/21 @ 09:41 by Mabel Buck) Living Situation History: Household Members: Spouse Alcohol History: Alcohol intake: current Alcohol History Details: Alcohol intake frequency: holiday/special occasion Tobacco History: Patient Tobacco Use Status: Former Tobacco user Occupation Assessmet: Current occupational status: retired Current occupation: right \handed Oncology Screenings - ECOG Performance Status ECOG Performance Status: 1 Home Medications and Allergies Current Medications: Current Medications Acetaminophen (Acetaminophen 325 Mg Tablet) 650 mg PO ONCE RAIMUNDO Stop: 07/21/21 23:59 Diphenhydramine HCl (Diphenhydramine Hcl 25 Mg Tablet) 25 mg PO ONCE RAIMUNDO Stop: 07/21/21 23:59 Famotidine (Famotidine/Pf 20 Mg/2 Ml Vial) 20 mg IVPUSH ONCE RAIMUNDO Stop: 07/21/21 23:59 Heparin Sodium (Porcine) (Heparin Sodium,Porcine Flush 500 Unit/5 Ml Syringe) 500 unit IVFLUSH ONCE RAIMUNDO Stop: 07/21/21 23:59 Dexamethasone Sodium Phosphate (Decadron) 12 mg in 50 mls @ 200 mls/hr IV ONCE RAIMUNDO Stop: 07/21/21 23:59 Ondansetron HCl (Zofran) 16 mg in 50 mls @ 200 mls/hr IV ONCE RAIMUNDO Stop: 07/21/21 23:59 Fosaprepitant 150 mg/ Sodium (Chloride) 150 mls @ 300 mls/hr IV ONCE RAIMUNDO Stop: 07/21/21 23:59 Carboplatin 400 mg/ Sodium (Chloride) 290 mls @ 580 mls/hr IV ONCE RAIMUNDO Stop: 07/21/21 23:59 Docetaxel 125 mg/ Sodium (Chloride) 256.25 mls @ 256.25 mls/hr IV ONCE RAIMUNDO Stop: 07/21/21 23:59 Home Medications Medication Instructions Recorded Confirmed Type denosumab 120 mg/1.7 mL (70 mg/mL) 120 mg SUBCUT Q4W 07/28/20 07/07/21 History subcutaneous solution (Xgeva) leuprolide (6 month) 45 mg (6 45 mg SUBCUT [id number] 07/28/20 07/07/21 History month) subcutaneous syringe (Eligard) omeprazole magnesium 20 mg 20 mg PO DAILY PRN 12/18/20 07/07/21 History capsule,delayed release enzalutamide 80 mg tablet (Xtandi) 160 mg PO DAILY 03/17/21 07/07/21 History Allergies Allergy/AdvReac Type Severity Reaction Status Date / Time No Known Allergies Allergy Verified 07/07/21 09:41 Exam Vital signs: Vital Signs Temp 98.5 F 07/21/21 09:10 Pulse 100 07/21/21 09:10 Resp 16 07/21/21 09:10 BP 139/72 07/21/21 09:10 Pulse Ox 96 07/21/21 09:10 Intake & Output 07/20/21 07/21/21 07/21/21 18:59 06:59 18:59 Other: Weight 91.8 kg Weight in Grams [id number] Weight 91.8 kg Body Mass Index 29.9 - Constitutional Present: no acute distress - Routine HEENT Exam Head: Present: normal inspection - Routine Neck Exam Present: full ROM. Absent: lymphadenopathy - Routine Respiratory Exam Present: CTAB - Routine Cardiovascular Exam Cardiovascular: Present: RRR, S1, S2 - Routine Abdominal Exam Present: soft - Routine Extremities Exam Present: full ROM, joint swelling. Absent: calf tenderness, pedal edema, tenderness - Routine Skin Exam Present: intact. Absent: cyanosis, erythema Data - Labs CBC & Chem 7: 11/23/20 09:17 11/23/20 09:17 Labs: 07/28/20 00:00 0.9 % Sodium Chloride [Ns] 500 ml IVCONT 250 mls/hr Cabazitaxel [Jevtana] 40 mg 0.9 % Sodium Chloride 250 ml IV ONCE Denosumab [Xgeva] 120 mg SUBCUT ONCE Famotidine/PF [Pepcid/PF] 20 mg IVPUSH ONCE Heparin Sodium,Porcine Flush 500 unit IVFLUSH ONCE dexAMETHasone sod phosphate/NS [Decadron] 12 mg in 50 ml IV ONCE diphenhydrAMINE HCL [Benadryl] 25 mg PO ONCE ondansetron HCL/NS [Zofran] 16 mg in 50 ml IV ONCE 07/28/20 11:50 XR chest 2V Routine XR knee RT 4V Routine XR shoulder RT min 2V Routine 09/01/20 00:00 Cabazitaxel [Jevtana] 40 mg 0.9 % Sodium Chloride 250 ml IV ONCE Denosumab [Xgeva] 120 mg SUBCUT ONCE Famotidine/PF [Pepcid/PF] 20 mg IVPUSH ONCE Heparin Sodium,Porcine Flush 500 unit IVFLUSH ONCE dexAMETHasone sod phosphate/NS [Decadron] 12 mg in 50 ml IV ONCE diphenhydrAMINE HCL [Benadryl] 25 mg PO ONCE ondansetron HCL/NS [Zofran] 16 mg in 50 ml IV ONCE 09/08/20 00:00 Leuprolide Acetate [Eligard] 45 mg SUBCUT ONCE 10/07/20 00:00 Denosumab [Xgeva] 120 mg SUBCUT ONCE Laboratory Tests 03/28/19 06/22/20 10/20/20 19:09 10:00 09:04 WBC 4.1 L Hgb 11.9 L Hct 37.2 L Plt Count 265 Sodium Potassium Chloride Carbon Dioxide Bicarbonate 24 Anion Gap BUN Creatinine Direct Bilirubin 0.4 Total Bilirubin AST ALT Alkaline Phosphatase Prostate Specific Ag 10/20/20 09:04 WBC Hgb Hct Plt Count Sodium 141 Potassium 4.0 Chloride 106 Carbon Dioxide 27 Bicarbonate Anion Gap 12 BUN 20 H Creatinine 1.02 Direct Bilirubin Total Bilirubin 0.6 AST 22 ALT 38 Alkaline Phosphatase 102 Prostate Specific Ag 17.63 H - Imaging Radiologist's impression: ITS Impressions Chest X-Ray 07/28/20 11:50 IMPRESSION: No evidence for acute disease in the chest. Sclerotic bone disease similar to previous exams. EXAMINATION: Right shoulder x-ray CLINICAL INFORMATION: Pain COMPARISON: None. TECHNIQUE: 4 views of the right shoulder FINDINGS: Bone alignment is normal. No fracture or dislocation is seen. The glenohumeral joint is normal. There is arthritis at the acromioclavicular joint. There is evidence of diffuse sclerotic bone disease. Soft tissues are unremarkable. IMPRESSION: Sclerotic bone disease. Arthritis at the acromioclavicular joint. EXAMINATION: Right knee x-ray CLINICAL INFORMATION: Pain COMPARISON: None. TECHNIQUE: 4 views right knee FINDINGS: Bone alignment is normal. No fracture or dislocation is seen. The joint spaces are normal. There is no joint effusion. IMPRESSION: Unremarkable exam. Knee X-Ray 07/28/20 11:50 IMPRESSION: No evidence for acute disease in the chest. Sclerotic bone disease similar to previous exams. EXAMINATION: Right shoulder x-ray CLINICAL INFORMATION: Pain COMPARISON: None. TECHNIQUE: 4 views of the right shoulder FINDINGS: Bone alignment is normal. No fracture or dislocation is seen. The glenohumeral joint is normal. There is arthritis at the acromioclavicular joint. There is evidence of diffuse sclerotic bone disease. Soft tissues are unremarkable. IMPRESSION: Sclerotic bone disease. Arthritis at the acromioclavicular joint. EXAMINATION: Right knee x-ray CLINICAL INFORMATION: Pain COMPARISON: None. TECHNIQUE: 4 views right knee FINDINGS: Bone alignment is normal. No fracture or dislocation is seen. The joint spaces are normal. There is no joint effusion. IMPRESSION: Unremarkable exam. Shoulder X-Ray 07/28/20 11:50 IMPRESSION: No evidence for acute disease in the chest. Sclerotic bone disease similar to previous exams. EXAMINATION: Right shoulder x-ray CLINICAL INFORMATION: Pain COMPARISON: None. TECHNIQUE: 4 views of the right shoulder FINDINGS: Bone alignment is normal. No fracture or dislocation is seen. The glenohumeral joint is normal. There is arthritis at the acromioclavicular joint. There is evidence of diffuse sclerotic bone disease. Soft tissues are unremarkable. IMPRESSION: Sclerotic bone disease. Arthritis at the acromioclavicular joint. EXAMINATION: Right knee x-ray CLINICAL INFORMATION: Pain COMPARISON: None. TECHNIQUE: 4 views right knee FINDINGS: Bone alignment is normal. No fracture or dislocation is seen. The joint spaces are normal. There is no joint effusion. IMPRESSION: Unremarkable exam. Assessment and Plan Patient Active problem list reviewed?: Yes (1) Prostate cancer metastatic to bone Status: Chronic Assessment and plan: 1. 1. This is a 80 year-old male with metastatic Prostate Cancer, Bone Metastases diagnosed in 2012. pMSI. BRCA 10/05 negative. He is on LHRH agonist q 6 months. On monthly denosumab. Repeat bone scan in December 2020 showed progression of disease with bulk of disease in his spine, sternum and right humerus. He is now on docetaxel sent 5 milligram/meter sq and carboplatin AUC 4 administered every 3 weeks. Clinically he is doing well, PSA is just beginning to trend downward. He is waiting to see if he can get the newly approved treatment for prostate cancer, Kirsten labeled [id number] for PSMA positive tumors/metastasis. PSMA PET-CT would also have to be performed prior to treatment. He was seen by Dr. Calderon at [facility] in [place], he is waiting to get the PSMA scan. Labs are stable, proceed with treatment today. Follow-up in 1 month. - Time Spent With Patient Time Spent with Patient (in minutes): 15
[2021-07-21] MEDS: diphenhydrAMINE HCL 25 MG TABLET PO (10:25)
[2021-07-21] MEDS: Famotidine/PF 20 MG/2 ML VIAL IVPUSH (10:25)
[2021-07-21] MEDS: Acetaminophen 325 MG TABLET 650 MG PO (10:25)
[2021-07-21] MEDS: dexAMETHasone sod phosphate/NS 12 MG/50 ML PIGGYBACK 200 MG IV (11:01)
[2021-07-21] MEDS: Fosaprepitant Dimeglumine 150 MG in 0.9 % Sodium Chloride 145 ML 300 MG IV (11:19)
[2021-07-21] MEDS: Heparin Sodium,Porcine Flush 500 UNIT/5 ML SYRINGE IVFLUSH (13:50)
[2021-07-21] MEDS: Pegfilgrastim Onpro 6 MG/0.6 ML SYR.W..INJ SUBCUT (13:58)
--- NOTE | 2021-07-21 15:50 | MHC.HEMONC ---
Patient here for Cycle 4 Day 1 Docetaxel/Carboplatin. Right chest port accessed with blood positive return noted and labs drawn. Lab results from 07/20/21 reviewed - okay to receive treatment today. Patient pre-medicated with Tylenol and Benadryl PO, and Pepcid, Dexamethasone, Emend and Zofran IV. Docetaxel/Carboplatin given as ordered and patient tolerated it well. Positive blood return in port both pre and post chemotherapy infusion. Neulasta OnPro placed on HUGO. Port flushed with Heparin and de-accessed. Next infusion and Denosumab injection scheduled for 08/11/2021. Patient unable to get Denosumab on 08/04/21 as he has an appointment at [facility], Dr Lisa haines. Discharge packet given. Patient departed the unit.
[2021-08-11 09:22] VITALS: BMI 29.6
[2021-08-11 09:30] VITALS: BP 135/75; PULSE 98; RESP 16; TEMP 36.8; O2SAT 100
[2021-08-11] MEDS: Acetaminophen 325 MG TABLET 650 MG PO (10:15)
[2021-08-11] MEDS: Fosaprepitant Dimeglumine 150 MG in 0.9 % Sodium Chloride 145 ML 300 MG IV (10:15)
[2021-08-11] MEDS: diphenhydrAMINE HCL 25 MG TABLET PO (10:15)
[2021-08-11] MEDS: Famotidine/PF 20 MG/2 ML VIAL IVPUSH (10:52)
[2021-08-11] MEDS: dexAMETHasone sod phosphate/NS 12 MG/50 ML PIGGYBACK 200 MG IV (10:53)
[2021-08-11] MEDS: Pegfilgrastim Onpro 6 MG/0.6 ML SYR.W..INJ SUBCUT (13:26)
[2021-08-11] MEDS: Heparin Sodium,Porcine Flush 500 UNIT/5 ML SYRINGE IVFLUSH (13:26)
--- NOTE | 2021-08-11 15:43 | MHC.HEMONC ---
Addendum entered by Aminah Spears RN 08/11/21 16:17: Patient Calcium level= 9.4 Original Note: Patient here for Cycle 5 Day 1 Docetaxel/Carboplatin. Right chest port accessed with blood positive return noted and labs drawn. Lab results from [facility] on 08/10/21 reviewed - okay to receive treatment today. Patient pre-medicated with Tylenol and Benadryl PO, and Pepcid, Dexamethasone, Emend and Zofran IV. Docetaxel/Carboplatin given as ordered and patient tolerated it well. Positive blood return in port both pre and post chemotherapy infusion. Neulasta OnPro placed on HUGO. Port flushed with Heparin and de-accessed. Denosumab injection given in REKHA. Next infusion and follow up with Dr Gonzalez scheduled for 09/01/21 and Denosumab injection scheduled for 09/08/2021. Discharge packet given. Patient departed the unit.
--- NOTE | 2021-08-11 16:33 | P.PNHO_ITS ---
Medical Summary - Medical Summary Date of Service: 08/11/21 Chief complaint: follow-up Medical Summary: DIAGNOSIS: Mr. Morgan was diagnosed with prostate cancer in 2006. THERAPY: 1. He underwent radical retropubic prostatectomy with bilateral pelvic lymphadenectomy on March 31, 2007. He was staged as a T3a [place]'s 4 + 3 prostate adenocarcinoma. 2. He underwent ERBT postoperatively in 2007 for a rising PSA. 3. He was diagnosed with metastatic disease, bony metastasis sometime in 2011 and has been on hormonal manipulation under the care of his urologist Dr. Oreilly. Repeat imaging: Restaging with a PET scan May 14, 2014 showed mild hypermetabolic activity in the right L2 pedicle SUV of 3.4, T11, T12 and T10 SUV of 5.28, and T5, T4 and T3 vertebrae with only residual sites of disease. No additional hypermetabolic activity in the skeleton, and no lymphadenopathy. Diffuse sclerotic lesions throughout cervical, dorsal, lumbar sacral spine, iliac bones and bilateral ribs consistent with old metastatic disease. PSA on May 02, 2014, 25.6 and total testosterone less than 1 ng/dL. 4. After oncology consultation in apr 2014, patient started Denosumab (Xgeva)120 mg subcu monthly, since June 02, 2014. 5. Because of rising PSA noted in July 2014 when it reggie 61, the patient was taken off Casodex. 6. The patient started Xtandi or enzalutamide at a dose of 160 mg once daily on October 14, 2014. 7. Started Xofigo (radium 223)dose of 55 KBq/ per kilo every 4 weeks for 6 doses on 04/05/16. 8. Received palliative radiotherapy to C2 vertebral body at [facility] in June 2017 because of increasing uptake on PET scan worrisome for metastasis. 9. He started zytiga Jul 2017 to Sep 2017. Discontinued for rising PSA. 10. He then received 6 cycles Taxotere from 10/25/17 to January 2018. MSI status on tumor, showed preserved expression of DNA mismatch repair proteins indicating lack of microsatellite instability. Patient?s genetic test result , extended my Risk dinner tick panel testing was negative. 11. Ketoconazole for 1 month apr/2017. 12. Was seen at [facility] by Dr. Jaqueline Ayala for second opinion as well as consid eration of clinical trials, was recommended clinical trial with olaparib +/- Cederinib. If he decides against trial, options would be to reconsider Zytiga, chemotherapy with Cabazitaxel +/- Carboplatinum or Apalutamide. 13. Was on Apalutamide 240 mg once a day for about 3 months. Rising PSA. 14. Switched to Zytiga 1000 mg once a day with prednisone 5 mg b.i.d. from end of December 2018. 15. Discontinued 03/14/2019 because of rising PSA. 16. Started Cabazitaxel March 2019. Treated for Legionella pneumonia after cycle 1 17. Switched to Xtandi in September 2020 18. Started back on docetaxel but added carboplatin since 05/19/2021 because of progressive disease. Olaparib was not approved by insurance carrier. BRCA mutation is negative, Homologous recombination repair gene mutation to be performed if possible. He underwent iliac crest biopsy at the site of bony lesion, however, this was negative for any malignant cells. Interval History Interval history: patient is here in follow-up. He has undergone PSMA PET scan, he met with Dr. Calderon from [facility] yesterday. He is hoping to get treated with radio immunotherapy in the following weeks. He is tolerating treatment okay but reports more fatigue, he feels quite down for a week or 2 after treatment. He denies loss of appetite or weight loss. No fever or chills. 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 Mother No problems noted. Surgical History: Surgical History (Last Reviewed 07/07/21 @ 09:40 by Mabel Buck) H/O hernia repair History of appendectomy History of shoulder surgery Social History: Social History (Last Reviewed 07/07/21 @ 09:41 by Mabel Buck) Living Situation History: Household Members: Spouse Alcohol History: Alcohol intake: current Alcohol History Details: Alcohol intake frequency: holiday/special occasion Tobacco History: Patient Tobacco Use Status: Former Tobacco user Occupation Assessmet: Current occupational status: retired Current occupation: right \handed Oncology Screenings - ECOG Performance Status ECOG Performance Status: 1 Home Medications and Allergies Current Medications: Current Medications Acetaminophen (Acetaminophen 325 Mg Tablet) 650 mg PO ONCE RAIMUNDO Stop: 08/11/21 23:59 Last Admin: 08/11/21 10:15 Dose: 650 mg Documented by: Denosumab (Denosumab 120 Mg/1.7 Ml Vial) 120 mg SUBCUT ONCE RAIMUNDO Stop: 08/11/21 23:59 Last Admin: 08/11/21 12:37 Dose: 120 mg Documented by: Diphenhydramine HCl (Diphenhydramine Hcl 25 Mg Tablet) 25 mg PO ONCE RAIMUNDO Stop: 08/11/21 23:59 Last Admin: 08/11/21 10:15 Dose: 25 mg Documented by: Famotidine (Famotidine/Pf 20 Mg/2 Ml Vial) 20 mg IVPUSH ONCE RAIMUNDO Stop: 08/11/21 23:59 Last Admin: 08/11/21 10:52 Dose: 20 mg Documented by: Heparin Sodium (Porcine) (Heparin Sodium,Porcine Flush 500 Unit/5 Ml Syringe) 500 unit IVFLUSH ONCE RAIMUNDO Stop: 08/11/21 23:59 Last Admin: 08/11/21 13:26 Dose: 500 unit Documented by: Dexamethasone Sodium Phosphate (Decadron) 12 mg in 50 mls @ 200 mls/hr IV ONCE RAIMUNDO Stop: 08/11/21 23:59 Last Infusion: 08/11/21 11:10 Dose: Infused Documented by: Ondansetron HCl (Zofran) 16 mg in 50 mls @ 200 mls/hr IV ONCE RAIMUNDO Stop: 08/11/21 23:59 Last Infusion: 08/11/21 11:30 Dose: Infused Documented by: Fosaprepitant 150 mg/ Sodium (Chloride) 150 mls @ 300 mls/hr IV ONCE RAIMUNDO Stop: 08/11/21 23:59 Last Infusion: 08/11/21 10:50 Dose: Infused Documented by: Docetaxel 125 mg/ Sodium (Chloride) 256.25 mls @ 256.25 mls/hr IV ONCE RAIMUNDO Stop: 08/11/21 23:59 Last Infusion: 08/11/21 12:45 Dose: Infused Documented by: Carboplatin 400 mg/ Sodium (Chloride) 290 mls @ 580 mls/hr IV ONCE RAIMUNDO Stop: 08/11/21 23:59 Last Infusion: 08/11/21 13:15 Dose: Infused Documented by: Home Medications Medication Instructions Recorded Confirmed Type denosumab 120 mg/1.7 mL (70 mg/mL) 120 mg SUBCUT Q4W 07/28/20 07/07/21 History subcutaneous solution (Xgeva) leuprolide (6 month) 45 mg (6 45 mg SUBCUT [id number] 07/28/20 07/07/21 History month) subcutaneous syringe (Eligard) omeprazole magnesium 20 mg 20 mg PO DAILY PRN 12/18/20 07/07/21 History capsule,delayed release enzalutamide 80 mg tablet (Xtandi) 160 mg PO DAILY 03/17/21 07/07/21 History Allergies Allergy/AdvReac Type Severity Reaction Status Date / Time No Known Allergies Allergy Verified 07/07/21 09:41 Exam Vital signs: Vital Signs Temp 98.2 F 08/11/21 09:30 Pulse 98 08/11/21 09:30 Resp 16 08/11/21 09:30 BP 135/75 08/11/21 09:30 Pulse Ox 100 08/11/21 09:30 Intake & Output 08/10/21 08/11/21 08/11/21 18:59 06:59 18:59 Intake Total 796.25 / 796.25 Balance 796.25 / 796.25 Intake: Intake, IV Amount 796.25 / 796.25 CARBOplatin 400 mg In 0.9 % 290 / 290 Sodium Chloride 250 ml @ 580 mls/hr IV ONCE RAIMUNDO Rx#: [id number] DOCEtaxeL 125 mg In 0.9 % 256.25 / 256.25 Sodium Chloride 250 ml @ 256.25 mls/hr IV ONCE RAIMUNDO Rx#: [id number] Fosaprepitant Dimeglumine 150 150 / 150 mg In 0.9 % Sodium Chloride 145 ml @ 300 mls/hr IV ONCE RAIMUNDO Rx #:[id number] Ondansetron HCL/NS 16 mg In 50 50 / 50 ml @ 200 mls/hr IV ONCE RAIMUNDO Rx# :[id number] dexAMETHasone sod phosphate/NS 50 / 50 12 mg In 50 ml @ 200 mls/hr IV ONCE RAIMUNDO Rx#:[id number] Other: Weight 91 kg [place] Weight in Grams 52537 Weight 91 kg Body Mass Index 29.6 - Constitutional Present: no acute distress - Routine HEENT Exam Head: Present: normal inspection - Routine Neck Exam Present: full ROM. Absent: lymphadenopathy - Routine Respiratory Exam Present: CTAB - Routine Cardiovascular Exam Cardiovascular: Present: RRR, S1, S2 - Routine Abdominal Exam Present: soft - Routine Extremities Exam Present: full ROM, joint swelling. Absent: calf tenderness, pedal edema, tenderness - Routine Skin Exam Present: intact. Absent: cyanosis, erythema Data - Labs CBC & Chem 7: 11/23/20 09:17 11/23/20 09:17 - Imaging Radiologist's impression: ITS Impressions Chest X-Ray 07/28/20 11:50 IMPRESSION: No evidence for acute disease in the chest. Sclerotic bone disease similar to previous exams. EXAMINATION: Right shoulder x-ray CLINICAL INFORMATION: Pain COMPARISON: None. TECHNIQUE: 4 views of the right shoulder FINDINGS: Bone alignment is normal. No fracture or dislocation is seen. The glenohumeral joint is normal. There is arthritis at the acromioclavicular joint. There is evidence of diffuse sclerotic bone disease. Soft tissues are unremarkable. IMPRESSION: Sclerotic bone disease. Arthritis at the acromioclavicular joint. EXAMINATION: Right knee x-ray CLINICAL INFORMATION: Pain COMPARISON: None. TECHNIQUE: 4 views right knee FINDINGS: Bone alignment is normal. No fracture or dislocation is seen. The joint spaces are normal. There is no joint effusion. IMPRESSION: Unremarkable exam. Knee X-Ray 07/28/20 11:50 IMPRESSION: No evidence for acute disease in the chest. Sclerotic bone disease similar to previous exams. EXAMINATION: Right shoulder x-ray CLINICAL INFORMATION: Pain COMPARISON: None. TECHNIQUE: 4 views of the right shoulder FINDINGS: Bone alignment is normal. No fracture or dislocation is seen. The glenohumeral joint is normal. There is arthritis at the acromioclavicular joint. There is evidence of diffuse sclerotic bone disease. Soft tissues are unremarkable. IMPRESSION: Sclerotic bone disease. Arthritis at the acromioclavicular joint. EXAMINATION: Right knee x-ray CLINICAL INFORMATION: Pain COMPARISON: None. TECHNIQUE: 4 views right knee FINDINGS: Bone alignment is normal. No fracture or dislocation is seen. The joint spaces are normal. There is no joint effusion. IMPRESSION: Unremarkable exam. Shoulder X-Ray 07/28/20 11:50 IMPRESSION: No evidence for acute disease in the chest. Sclerotic bone disease similar to previous exams. EXAMINATION: Right shoulder x-ray CLINICAL INFORMATION: Pain COMPARISON: None. TECHNIQUE: 4 views of the right shoulder FINDINGS: Bone alignment is normal. No fracture or dislocation is seen. The glenohumeral joint is normal. There is arthritis at the acromioclavicular joint. There is evidence of diffuse sclerotic bone disease. Soft tissues are unremarkable. IMPRESSION: Sclerotic bone disease. Arthritis at the acromioclavicular joint. EXAMINATION: Right knee x-ray CLINICAL INFORMATION: Pain COMPARISON: None. TECHNIQUE: 4 views right knee FINDINGS: Bone alignment is normal. No fracture or dislocation is seen. The joint spaces are normal. There is no joint effusion. IMPRESSION: Unremarkable exam. Assessment and Plan Patient Active problem list reviewed?: Yes (1) Prostate cancer metastatic to bone Status: Chronic Assessment and plan: 1. This is a 80 year-old male with metastatic Prostate Cancer, Bone Metastases diagnosed in 2012. pMSI. BRCA 10/05 negative. He is on LHRH agonist q 6 months. On monthly denosumab. Repeat bone scan in December 2020 showed progression of disease with bulk of disease in his spine, sternum and right humerus. He is now on docetaxel sent 5 milligram/meter sq and carboplatin AUC 4 administered every 3 weeks. Clinically he is doing reasonably well. PSMA PET-CT was performed 08/04/2021, he has PSMA avid disease besides extensive bone metastasis he has supraclavicular and chest lymph nodes. He is waiting to see if he can receive Kirsten labeled PSMA-617 for PSMA positive tumors/metastasis. Labs are stable, proceed with treatment today, cycle 5. Follow-up in 1 month. - Time Spent With Patient Time Spent with Patient (in minutes): 15
[2021-09-01 08:58] VITALS: BP 154/73; PULSE 94; RESP 18; TEMP 36.6; O2SAT 98; BMI 29.7
[2021-09-01 09:21] LABS: MANUAL DIFF FLAG NO
[2021-09-01 09:23] LABS: Basophils Percent Auto 0.2 % (0-2); Hematocrit 28.3 % (42.0-52.0); Imm Gran Abs Auto 0.08 X10*3/uL (0.00-0.03); Imm Gran Pct Auto 1.7 % (0.0-0.4); Lymphocytes Absolute Auto 1.1 X10*3/uL (1.2-4.9); Lymphocytes Percent Auto 23.2 % (20-40); Mean Corpuscular HGB Conc 31.8 g/dl (31.0-36.0); Mean Corpuscular Hemoglobin 33.6 pg (27.0-33.0); Mean Corpuscular Volume 105.6 fL (80.0-98.0); Mean Platelet Volume 8.9 fL (9.4-12.4); Monocytes Absolute Auto 0.5 X10*3/uL (0.1-1.2); Monocytes Percent Auto 10.3 % (2-11); Neutrophils Percent Auto 64.6 % (45-73); Platelet Count 170 X10*3/uL (160-400); Red Blood Count 2.68 X10*6/uL (4.60-5.80); Red Cell Distribution Width 16.7 % (11.0-16.0); White Blood Count 4.7 X10*3/uL (4.8-10.8)
[2021-09-01 09:39] LABS: Alanine Aminotransferase 33 U/L (0-40); Albumin Level 4.2 g/dL (3.5-5.0); Alkaline Phosphatase 95 U/L (39-117); Anion Gap 14 (12-20); Aspartate Amino Transferase 20 U/L (5-37); Bilirubin Total 0.5 mg/dL (0.0-1.0); Blood Urea Nitrogen 17 mg/dL (9-16); Calcium 9.2 mg/dL (8.4-10.2); Carbon Dioxide 23 mmol/L (22-29); Chloride 108 mmol/L (96-108); Creatinine Clr Calc Pharmacy 68.7; Estimated Glomerular Filt Rate > 60; Glucose Random 140 mg/dL (60-115); Potassium 3.9 mmol/L (3.3-5.1); Sodium 141 mmol/L (135-145); Total Protein 6.6 g/dL (6.5-8.0)
[2021-09-01] MEDS: diphenhydrAMINE HCL 25 MG TABLET PO (09:48)
[2021-09-01] MEDS: Acetaminophen 325 MG TABLET 650 MG PO (09:48)
[2021-09-01] MEDS: Famotidine/PF 20 MG/2 ML VIAL IVPUSH (09:49)
[2021-09-01] MEDS: dexAMETHasone sod phosphate/NS 12 MG/50 ML PIGGYBACK 200 MG IV (09:53)
--- NOTE | 2021-09-01 10:05 | PM.HEMONCPN ---
Medical Summary - Medical Summary Date of Service: 09/01/21 Chief complaint: follow-up and scheduled treatment Medical Summary: DIAGNOSIS: Mr. Morgan was diagnosed with prostate cancer in 2006. THERAPY: 1. He underwent radical retropubic prostatectomy with bilateral pelvic lymphadenectomy on March 31, 2007. He was staged as a T3a [place]'s 4 + 3 prostate adenocarcinoma. 2. He underwent ERBT postoperatively in 2007 for a rising PSA. 3. He was diagnosed with metastatic disease, bony metastasis sometime in 2011 and has been on hormonal manipulation under the care of his urologist Dr. Oreilly. Repeat imaging: Restaging with a PET scan May 14, 2014 showed mild hypermetabolic activity in the right L2 pedicle SUV of 3.4, T11, T12 and T10 SUV of 5.28, and T5, T4 and T3 vertebrae with only residual sites of disease. No additional hypermetabolic activity in the skeleton, and no lymphadenopathy. Diffuse sclerotic lesions throughout cervical, dorsal, lumbar sacral spine, iliac bones and bilateral ribs consistent with old metastatic disease. PSA on May 02, 2014, 25.6 and total testosterone less than 1 ng/dL. 4. After oncology consultation in apr 2014, patient started Denosumab (Xgeva)120 mg subcu monthly, since June 02, 2014. 5. Because of rising PSA noted in July 2014 when it reggie 61, the patient was taken off Casodex. 6. The patient started Xtandi or enzalutamide at a dose of 160 mg once daily on October 14, 2014. 7. Started Xofigo (radium 223)dose of 55 KBq/ per kilo every 4 weeks for 6 doses on 04/05/16. 8. Received palliative radiotherapy to C2 vertebral body at [facility] in June 2017 because of increasing uptake on PET scan worrisome for metastasis. 9. He started zytiga Jul 2017 to Sep 2017. Discontinued for rising PSA. 10. He then received 6 cycles Taxotere from 10/25/17 to January 2018. MSI status on tumor, showed preserved expression of DNA mismatch repair proteins indicating lack of microsatellite instability. Patient?s genetic test result , extended my Risk dinner tick panel testing was negative. 11. Ketoconazole for 1 month apr/2017. 12. Was seen at [facility] by Dr. Jaqueline Ayala for second opinion as well as consideration of clinical trials, was recommended clinical trial with olaparib +/- Cederinib. If he decides against trial, options would be to reconsider Zytiga, chemotherapy with Cabazitaxel +/- Carboplatinum or Apalutamide. 13. Was on Apalutamide 240 mg once a day for about 3 months. Rising PSA. 14. Switched to Zytiga 1000 mg once a day with prednisone 5 mg b.i.d. from end of December 2018. 15. Discontinued 03/14/2019 because of rising PSA. 16. Started Cabazitaxel March 2019. Treated for Legionella pneumonia after cycle 1 17. Switched to Xtandi in September 2020 18. Started back on docetaxel but added carboplatin since 05/19/2021 because of progressive disease. Olaparib was not approved by insurance carrier. BRCA mutation is negative, Homologous recombination repair gene mutation to be performed if possible. He underwent iliac crest biopsy at the site of bony lesion, however, this was negative for any malignant cells. Interval History Interval history: patient is here in follow-up. He is doing okay but is getting quite tired and feeling beat up after treatments. He would like to take a break after this cycle. He is waiting for approval of new treatment for prostate cancer. He continues to have problems with his knees. He loss of appetite or weight loss. No fever or chills. 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 Mother No problems noted. Surgical History: Surgical History (Last Reviewed 07/07/21 @ 09:40 by Mabel Buck) H/O hernia repair History of appendectomy History of shoulder surgery Social History: Social History (Last Reviewed 07/07/21 @ 09:41 by Mabel Buck) Living Situation History: Household Members: Spouse Alcohol History: Alcohol intake: current Alcohol History Details: Alcohol intake frequency: holiday/special occasion Tobacco History: Patient Tobacco Use Status: Former Tobacco user Occupation Assessmet: Current occupational status: retired Current occupation: right \handed Oncology Screenings - ECOG Performance Status ECOG Performance Status: 1 Home Medications and Allergies Current Medications: Current Medications Acetaminophen (Acetaminophen 325 Mg Tablet) 650 mg PO ONCE RAIMUNDO Stop: 09/01/21 23:59 Last Admin: 09/01/21 09:48 Dose: 650 mg Documented by: Diphenhydramine HCl (Diphenhydramine Hcl 25 Mg Tablet) 25 mg PO ONCE RAIMUNDO Stop: 09/01/21 23:59 Last Admin: 09/01/21 09:48 Dose: 25 mg Documented by: Famotidine (Famotidine/Pf 20 Mg/2 Ml Vial) 20 mg IVPUSH ONCE RAIMUNDO Stop: 09/01/21 23:59 Last Admin: 09/01/21 09:49 Dose: 20 mg Documented by: Heparin Sodium (Porcine) (Heparin Sodium,Porcine Flush 500 Unit/5 Ml Syringe) 500 unit IVFLUSH ONCE RAIMUNDO Stop: 09/01/21 23:59 Dexamethasone Sodium Phosphate (Decadron) 12 mg in 50 mls @ 200 mls/hr IV ONCE RAIMUNDO Stop: 09/01/21 23:59 Last Admin: 09/01/21 09:53 Dose: 200 mls/hr Documented by: Ondansetron HCl (Zofran) 16 mg in 50 mls @ 200 mls/hr IV ONCE RAIMUNDO Stop: 09/01/21 23:59 Fosaprepitant 150 mg/ Sodium (Chloride) 150 mls @ 300 mls/hr IV ONCE RAIMUNDO Stop: 09/01/21 23:59 Docetaxel 125 mg/ Sodium (Chloride) 256.25 mls @ 256.25 mls/hr IV ONCE RAIMUNDO Stop: 09/01/21 23:59 Carboplatin 400 mg/ Sodium (Chloride) 290 mls @ 580 mls/hr IV ONCE RAIMUNDO Stop: 09/01/21 23:59 Home Medications Medication Instructions Recorded Confirmed Type denosumab 120 mg/1.7 mL (70 mg/mL) 120 mg SUBCUT Q4W 07/28/20 09/01/21 History subcutaneous solution (Xgeva) leuprolide (6 month) 45 mg (6 45 mg SUBCUT [id number] 07/28/20 09/01/21 History month) subcutaneous syringe (Eligard) omeprazole magnesium 20 mg 20 mg PO DAILY PRN 12/18/20 09/01/21 History capsule,delayed release Allergies Allergy/AdvReac Type Severity Reaction Status Date / Time No Known Allergies Allergy Verified 07/07/21 09:41 Exam Vital signs: Vital Signs Temp 97.9 F 09/01/21 08:58 Pulse 94 09/01/21 08:58 Resp 18 09/01/21 08:58 BP 154/73 H 09/01/21 08:58 Pulse Ox 98 09/01/21 08:58 Intake & Output 08/31/21 09/01/21 09/01/21 18:59 06:59 18:59 Other: Weight 91.5 kg [place] Weight in Grams 52965 Weight 91.5 kg BMI result Body Mass Index 29.7 - Constitutional Present: no acute distress - Routine HEENT Exam Head: Present: normal inspection - Routine Neck Exam Present: full ROM. Absent: lymphadenopathy - Routine Respiratory Exam Present: CTAB - Routine Cardiovascular Exam Cardiovascular: Present: RRR, S1, S2 - Routine Abdominal Exam Present: soft - Routine Extremities Exam Present: full ROM, joint swelling. Absent: calf tenderness, pedal edema, tenderness - Routine Skin Exam Present: intact. Absent: cyanosis, erythema Data - Labs CBC & Chem 7: 09/01/21 09:15 09/01/21 09:15 - Imaging Radiologist's impression: ITS Impressions Chest X-Ray 07/28/20 11:50 IMPRESSION: No evidence for acute disease in the chest. Sclerotic bone disease similar to previous exams. EXAMINATION: Right shoulder x-ray CLINICAL INFORMATION: Pain COMPARISON: None. TECHNIQUE: 4 views of the right shoulder FINDINGS: Bone alignment is normal. No fracture or dislocation is seen. The glenohumeral joint is normal. There is arthritis at the acromioclavicular joint. There is evidence of diffuse sclerotic bone disease. Soft tissues are unremarkable. IMPRESSION: Sclerotic bone disease. Arthritis at the acromioclavicular joint. EXAMINATION: Right knee x-ray CLINICAL INFORMATION: Pain COMPARISON: None. TECHNIQUE: 4 views right knee FINDINGS: Bone alignment is normal. No fracture or dislocation is seen. The joint spaces are normal. There is no joint effusion. IMPRESSION: Unremarkable exam. Knee X-Ray 07/28/20 11:50 IMPRESSION: No evidence for acute disease in the chest. Sclerotic bone disease similar to previous exams. EXAMINATION: Right shoulder x-ray CLINICAL INFORMATION: Pain COMPARISON: None. TECHNIQUE: 4 views of the right shoulder FINDINGS: Bone alignment is normal. No fracture or dislocation is seen. The glenohumeral joint is normal. There is arthritis at the acromioclavicular joint. There is evidence of diffuse sclerotic bone disease. Soft tissues are unremarkable. IMPRESSION: Sclerotic bone disease. Arthritis at the acromioclavicular joint. EXAMINATION: Right knee x-ray CLINICAL INFORMATION: Pain COMPARISON: None. TECHNIQUE: 4 views right knee FINDINGS: Bone alignment is normal. No fracture or dislocation is seen. The joint spaces are normal. There is no joint effusion. IMPRESSION: Unremarkable exam. Shoulder X-Ray 07/28/20 11:50 IMPRESSION: No evidence for acute disease in the chest. Sclerotic bone disease similar to previous exams. EXAMINATION: Right shoulder x-ray CLINICAL INFORMATION: Pain COMPARISON: None. TECHNIQUE: 4 views of the right shoulder FINDINGS: Bone alignment is normal. No fracture or dislocation is seen. The glenohumeral joint is normal. There is arthritis at the acromioclavicular joint. There is evidence of diffuse sclerotic bone disease. Soft tissues are unremarkable. IMPRESSION: Sclerotic bone disease. Arthritis at the acromioclavicular joint. EXAMINATION: Right knee x-ray CLINICAL INFORMATION: Pain COMPARISON: None. TECHNIQUE: 4 views right knee FINDINGS: Bone alignment is normal. No fracture or dislocation is seen. The joint spaces are normal. There is no joint effusion. IMPRESSION: Unremarkable exam. Assessment and Plan Patient Active problem list reviewed?: Yes (1) Prostate cancer metastatic to bone Status: Chronic Assessment and plan: 1. This is a 80 year-old male with metastatic Prostate Cancer, Bone Metastases diagnosed in 2012. pMSI. BRCA 10/05 negative. He is on LHRH agonist q 6 months. On monthly denosumab. Repeat bone scan in December 2020 showed progression of disease with bulk of disease in his spine, sternum and right humerus. He is now on docetaxel sent 5 milligram/meter sq and carboplatin AUC 4 administered every 3 weeks. Clinically he is doing reasonably well. PSMA PET-CT was performed 08/04/2021, he has PSMA avid disease besides extensive bone metastasis he has supraclavicular and chest lymph nodes. He is waiting to see if he can receive Kirsten labeled [id number]-617 for PSMA positive tumors/metastasis. Labs are stable, proceed with treatment today, cycle 6. Chemotherapy will be discontinued after this cycle. He will continue with Lupron. His last PSA was 57 NG/mL. Follow-up in 1 month. - Time Spent With Patient Time Spent with Patient (in minutes): 15
[2021-09-01] MEDS: Fosaprepitant Dimeglumine 150 MG in 0.9 % Sodium Chloride 145 ML 300 MG IV (10:28)
[2021-09-01] MEDS: Heparin Sodium,Porcine Flush 500 UNIT/5 ML SYRINGE IVFLUSH (13:03)
--- NOTE | 2021-09-01 15:29 | MHC.HEMONC ---
Patient here for Cycle 6 Day 1 Docetaxel/Carboplatin. Right chest port accessed with blood positive return noted and labs drawn. Lab results from 08/31/21 reviewed - okay to receive treatment today. Patient pre-medicated with Tylenol and Benadryl PO, and Pepcid, Dexamethasone, Emend and Zofran IV. Docetaxel/Carboplatin given as ordered and patient tolerated it well. Positive blood return in port both pre and post chemotherapy infusion. No Neulasta OnPro today. Port flushed with Heparin and de-accessed. Next Denosumab injection scheduled for 09/08/2021. Follow up with Dr Gonzalez on 09/22/21. No further infusions scheduled at this time per Dr Gonzalez. Discharge packet given. Patient departed the unit.
[2021-09-08 09:28] VITALS: BP 146/79; PULSE 101; RESP 18; TEMP 36.4; O2SAT 98
--- NOTE | 2021-09-08 09:41 | MHC.HEMONC ---
Pt arrived in good spirits for his scheduled monthly Denosumab injection, VSS, labs were checked previously, Ca WNL. Nurse admin Denosumab 120 mg SC to pt's LUE, and it was well-tolerated. Nurse provided pt w/ d/c packet and confirmed his next Onc f/u appt for later this month and his next injection for September.
--- NOTE | 2021-09-22 08:53 | P.PNHO_ITS ---
Medical Summary - Medical Summary Date of Service: 09/22/21 Chief complaint: Follow-up Medical Summary: DIAGNOSIS: Mr. Morgan was diagnosed with prostate cancer in 2006. THERAPY: 1. He underwent radical retropubic prostatectomy with bilateral pelvic lymphadenectomy on March 31, 2007. He was staged as a T3a [place] 4 + 3 prostate adenocarcinoma. 2. He underwent ERBT postoperatively in 2007 for a rising PSA. 3. He was diagnosed with metastatic disease, bony metastasis sometime in 2011 and has been on hormonal manipulation under the care of his urologist Dr. Oreilly. Repeat imaging: Restaging with a PET scan May 14, 2014 showed mild hypermetabolic activity in the right L2 pedicle SUV of 3.4, T11, T12 and T10 SUV of 5.28, and T5, T4 and T3 vertebrae with only residual sites of disease. No additional hypermetabolic activity in the skeleton, and no lymphadenopathy. Diffuse sclerotic lesions throughout cervical, dorsal, lumbar sacral spine, iliac bones and bilateral ribs consistent with old metastatic disease. PSA on May 02, 2014, 25.6 and total testosterone less than 1 ng/dL. 4. After oncology consultation in apr 2014, patient started Denosumab (Xgeva)120 mg subcu monthly, since June 02, 2014. 5. Because of rising PSA noted in July 2014 when it reggie 61, the patient was taken off Casodex. 6. The patient started Xtandi or enzalutamide at a dose of 160 mg once daily on October 14, 2014. 7. Started Xofigo (radium 223)dose of 55 KBq/ per kilo every 4 weeks for 6 doses on 04/05/16. 8. Received palliative radiotherapy to C2 vertebral body at [facility] in June 2017 because of increasing uptake on PET scan worrisome for metastasis. 9. He started zytiga Jul 2017 to Sep 2017. Discontinued for rising PSA. 10. He then received 6 cycles Taxotere from 10/25/17 to January 2018. MSI status on tumor, showed preserved expression of DNA mismatch repair proteins indicating lack of microsatellite instability. Patient?s genetic test result , extended my Risk dinner tick panel testing was negative. 11. Ketoconazole for 1 month apr/2017. 12. Was seen at [facility] by Dr. Jaqueline Ayala for second opinion as well as consideration of clinical trials, was recommended clinical trial with olaparib +/- Cederinib. If he decides against trial, options would be to reconsider Zytiga, chemotherapy with Cabazitaxel +/- Carboplatinum or Apalutamide. 13. Was on Apalutamide 240 mg once a day for about 3 months. Rising PSA. 14. Switched to Zytiga 1000 mg once a day with prednisone 5 mg b.i.d. from end of December 2018. 15. Discontinued 03/14/2019 because of rising PSA. 16. Started Cabazitaxel March 2019. Treated for Legionella pneumonia after cycle 1 17. Switched to Xtandi in September 2020 18. Started back on docetaxel but added carboplatin since 05/19/2021 because of progressive disease. Olaparib was not approved by insurance carrier. BRCA mutation is negative, Homologous recombination repair gene mutation to be performed if possible. He underwent iliac crest biopsy at the site of bony lesion, however, this was negative for any malignant cells. Interval History Interval history: patient is here in follow-up. He is accompanied by his son who is visiting from [place] today. Since he stopped chemotherapy, his energy level has improved. He has gained weight in his appetite is much better. He reports persistent right knee pain but no other pain or a elements. He denies any chest pain, cough or shortness of breath. No fever or chills. 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 Mother No problems noted. Surgical History: Surgical History (Last Reviewed 07/07/21 @ 09:40 by Mabel Buck) H/O hernia repair History of appendectomy History of shoulder surgery Social History: Social History (Last Reviewed 07/07/21 @ 09:41 by Mabel Buck) Living Situation History: Household Members: Spouse Alcohol History: Alcohol intake: current Alcohol History Details: Alcohol intake frequency: holiday/special occasion Tobacco History: Patient Tobacco Use Status: Former Tobacco user Occupation Assessmet: Current occupational status: retired Current occupation: right \handed Home Medications and Allergies Home Medications Medication Instructions Recorded Confirmed Type denosumab 120 mg/1.7 mL (70 mg/mL) 120 mg SUBCUT Q4W 07/28/20 09/22/21 History subcutaneous solution (Xgeva) leuprolide (6 month) 45 mg (6 45 mg SUBCUT [id number] 07/28/20 09/22/21 History month) subcutaneous syringe (Eligard) omeprazole magnesium 20 mg 20 mg PO DAILY PRN 12/18/20 09/22/21 History capsule,delayed release Allergies Allergy/AdvReac Type Severity Reaction Status Date / Time No Known Allergies Allergy Verified 07/07/21 09:41 Exam Vital signs: Vital Signs Temp 97.6 F 09/08/21 09:28 Pulse 101 H 09/08/21 09:28 Resp 18 09/08/21 09:28 BP 146/79 H 09/08/21 09:28 Pulse Ox 98 09/08/21 09:28 Weight 91.5 kg BMI result Body Mass Index 29.7 - Constitutional Present: no acute distress - Routine HEENT Exam Head: Present: normal inspection - Routine Neck Exam Present: full ROM. Absent: lymphadenopathy - Routine Respiratory Exam Present: CTAB - Routine Cardiovascular Exam Cardiovascular: Present: RRR, S1, S2 - Routine Abdominal Exam Present: soft - Routine Extremities Exam Present: full ROM, joint swelling. Absent: calf tenderness, pedal edema, tenderness - Routine Skin Exam Present: intact. Absent: cyanosis, erythema Data - Labs CBC & Chem 7: 09/01/21 09:15 09/01/21 09:15 - Imaging Radiologist's impression: ITS Impressions Chest X-Ray 07/28/20 11:50 IMPRESSION: No evidence for acute disease in the chest. Sclerotic bone disease similar to previous exams. EXAMINATION: Right shoulder x-ray CLINICAL INFORMATION: Pain COMPARISON: None. TECHNIQUE: 4 views of the right shoulder FINDINGS: Bone alignment is normal. No fracture or dislocation is seen. The glenohumeral joint is normal. There is arthritis at the acromioclavicular joint. There is evidence of diffuse sclerotic bone disease. Soft tissues are unremarkable. IMPRESSION: Sclerotic bone disease. Arthritis at the acromioclavicular joint. EXAMINATION: Right knee x-ray CLINICAL INFORMATION: Pain COMPARISON: None. TECHNIQUE: 4 views right knee FINDINGS: Bone alignment is normal. No fracture or dislocation is seen. The joint spaces are normal. There is no joint effusion. IMPRESSION: Unremarkable exam. Knee X-Ray 07/28/20 11:50 IMPRESSION: No evidence for acute disease in the chest. Sclerotic bone disease similar to previous exams. EXAMINATION: Right shoulder x-ray CLINICAL INFORMATION: Pain COMPARISON: None. TECHNIQUE: 4 views of the right shoulder FINDINGS: Bone alignment is normal. No fracture or dislocation is seen. The glenohumeral joint is normal. There is arthritis at the acromioclavicular joint. There is evidence of diffuse sclerotic bone disease. Soft tissues are unremarkable. IMPRESSION: Sclerotic bone disease. Arthritis at the acromioclavicular joint. EXAMINATION: Right knee x-ray CLINICAL INFORMATION: Pain COMPARISON: None. TECHNIQUE: 4 views right knee FINDINGS: Bone alignment is normal. No fracture or dislocation is seen. The joint spaces are normal. There is no joint effusion. IMPRESSION: Unremarkable exam. Shoulder X-Ray 07/28/20 11:50 IMPRESSION: No evidence for acute disease in the chest. Sclerotic bone disease similar to previous exams. EXAMINATION: Right shoulder x-ray CLINICAL INFORMATION: Pain COMPARISON: None. TECHNIQUE: 4 views of the right shoulder FINDINGS: Bone alignment is normal. No fracture or dislocation is seen. The glenohumeral joint is normal. There is arthritis at the acromioclavicular joint. There is evidence of diffuse sclerotic bone disease. Soft tissues are unremarkable. IMPRESSION: Sclerotic bone disease. Arthritis at the acromioclavicular joint. EXAMINATION: Right knee x-ray CLINICAL INFORMATION: Pain COMPARISON: None. TECHNIQUE: 4 views right knee FINDINGS: Bone alignment is normal. No fracture or dislocation is seen. The joint spaces are normal. There is no joint effusion. IMPRESSION: Unremarkable exam. Assessment and Plan Patient Active problem list reviewed?: Yes (1) Prostate cancer metastatic to bone Status: Chronic Assessment and plan: 1. This is a 81 year-old male with metastatic Prostate Cancer, Bone Metastases diagnosed in 2012. pMSI. BRCA 10/05 negative. He is on LHRH agonist q 6 months. On monthly denosumab. Repeat bone scan in December 2020 showed progression of disease with bulk of disease in his spine, sternum and right humerus. His last treatment was chemotherapy with docetaxel 75 milligram/meter sq and carboplatin AUC 4 administered every 3 weeks. PSMA PET-CT was performed 08/04/2021, he has PSMA avid disease besides extensive bone metastasis he has supraclavicular and chest lymph nodes. He is waiting to see if he can receive Kirsten labeled [id number]-[id number] for PSMA positive tumors/metastasis. He received 6 cycles of chemotherapy with docetaxel and carboplatin administered every 3 weeks until 07/2021. He will continue with Lupron and monthly denosumab. His last PSA was 38 NG/mL, it has been trending down gradually. Follow-up in 1 month. - Time Spent With Patient Time Spent with Patient (in minutes): 15
[2021-09-22 09:00] VITALS: BP 173/88; PULSE 97; RESP 18; TEMP 36.8; O2SAT 96; BMI 30.7
--- NOTE | 2021-09-22 16:27 | MHC.HEMONC ---
Patient arrived for follow up with Dr Gonzalez, his son was present. Vitals completed and medications reviewed. Dr Gonzalez in to see patient. Next Injection scheduled for 10/06/21 and follow up with Dr Gonzalez scheduled for 11/03/21.
--- NOTE | 2021-09-28 08:09 | MHC.HEMONC ---
Call from [facility] to report that Phlebotomy was present to draw weekly labs. Dr Gonzalez confirmed that she discontinued weekly lab draws and this RN contacted the audiovisual production specialist at [phone].
--- NOTE | 2021-10-04 16:00 | MHC.HEMONC ---
Call to [facility] to report that he is scheduled for monthly lab draws by phlebotomy (CBC, CMP and PSA). New order hand delivered to phlebotomy.
[2021-10-06 08:57] VITALS: BP 148/78; PULSE 96; RESP 96; TEMP 36.6; O2SAT 99
--- NOTE | 2021-10-06 16:48 | MHC.HEMONC ---
Patient arrived for Densosumab injection. Calcium Level=9.6 on 10/05/21. Medication administered and patient tolerated it well. Next injection and follow up with Dr Gonzalez scheduled for 11/03/21.
--- NOTE | 2021-11-03 09:52 | PM.HEMONCPN ---
Medical Summary - Medical Summary Date of Service: 11/03/21 Chief complaint: knee pain Medical Summary: DIAGNOSIS: Mr. Morgan was diagnosed with prostate cancer in 2006. THERAPY: 1. He underwent radical retropubic prostatectomy with bilateral pelvic lymphadenectomy on March 31, 2007. He was staged as a T3a [place]'s 4 + 3 prostate adenocarcinoma. 2. He underwent ERBT postoperatively in 2007 for a rising PSA. 3. He was diagnosed with metastatic disease, bony metastasis sometime in 2011 and has been on hormonal manipulation under the care of his urologist Dr. Oreilly. Repeat imaging: Restaging with a PET scan May 14, 2014 showed mild hypermetabolic activity in the right L2 pedicle SUV of 3.4, T11, T12 and T10 SUV of 5.28, and T5, T4 and T3 vertebrae with only residual sites of disease. No additional hypermetabolic activity in the skeleton, and no lymphadenopathy. Diffuse sclerotic lesions throughout cervical, dorsal, lumbar sacral spine, iliac bones and bilateral ribs consistent with old metastatic disease. PSA on May 02, 2014, 25.6 and total testosterone less than 1 ng/dL. 4. After oncology consultation in apr 2014, patient started Denosumab (Xgeva)120 mg subcu monthly, since June 02, 2014. 5. Because of rising PSA noted in July 2014 when it reggie 61, the patient was taken off Casodex. 6. The patient started Xtandi or enzalutamide at a dose of 160 mg once daily on October 14, 2014. 7. Started Xofigo (radium 223)dose of 55 KBq/ per kilo every 4 weeks for 6 doses on 04/05/16. 8. Received palliative radiotherapy to C2 vertebral body at [facility] in June 2017 because of increasing uptake on PET scan worrisome for metastasis. 9. He started zytiga Jul 2017 to Sep 2017. Discontinued for rising PSA. 10. He then received 6 cycles Taxotere from 10/25/17 to January 2018. MSI status on tumor, showed preserved expression of DNA mismatch repair proteins indicating lack of microsatellite instability. Patient?s genetic test result , extended my Risk dinner tick panel testing was negative. 11. Ketoconazole for 1 month apr/2017. 12. Was seen at [facility] by Dr. Jaqueline Ayala for second opinion as well as consideration of clinical trials, was recommended clinical trial with olaparib +/- Cederinib. If he decides against trial, options would be to reconsider Zytiga, chemotherapy with Cabazitaxel +/- Carboplatinum or Apalutamide. 13. Was on Apalutamide 240 mg once a day for about 3 months. Rising PSA. 14. Switched to Zytiga 1000 mg once a day with prednisone 5 mg b.i.d. from end of December 2018. 15. Discontinued 03/14/2019 because of rising PSA. 16. Started Cabazitaxel March 2019. Treated for Legionella pneumonia after cycle 1 17. Switched to Xtandi in September 2020 18. Started back on docetaxel but added carboplatin since 05/19/2021 because of progressive disease. Olaparib was not approved by insurance carrier. BRCA mutation is negative, Homologous recombination repair gene mutation to be performed if possible. He underwent iliac crest biopsy at the site of bony lesion, however, this was negative for any malignant cells. Interval History Interval history: patient is here in follow-up. He is doing pretty well apart from arthralgias and knee pain. He is scheduled to undergo right knee replacement in January of this year. He denies any chest pain, cough or shortness of breath. No fever or chills. He had a tele visit with his oncologist in [place] a week ago. 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 Mother No problems noted. Surgical History: Surgical History (Last Reviewed 10/28/21 @ 09:50 by Karrie Ny CMA) H/O hernia repair History of appendectomy History of shoulder surgery Social History: Social History (Last Reviewed 10/28/21 @ 09:50 by Karrie Ny CMA) Living Situation History: Household Members: Spouse Tobacco History: Patient Tobacco Use Status: Former Tobacco user Occupation Assessmet: Current occupational status: retired Current occupation: right \handed Home Medications and Allergies Current Medications: Current Medications Denosumab (Denosumab 120 Mg/1.7 Ml Vial) 120 mg SUBCUT ONCE RAIMUNDO Stop: 11/03/21 23:59 Home Medications Medication Instructions Recorded Confirmed Type denosumab 120 mg/1.7 mL (70 mg/mL) 120 mg SUBCUT Q4W 07/28/20 11/03/21 History subcutaneous solution (Xgeva) leuprolide (6 month) 45 mg (6 45 mg SUBCUT [id number] 07/28/20 11/03/21 History month) subcutaneous syringe (Eligard) omeprazole magnesium 20 mg 20 mg PO DAILY PRN 12/18/20 11/03/21 History capsule,delayed release Allergies Allergy/AdvReac Type Severity Reaction Status Date / Time No Known Allergies Allergy Verified 10/28/21 09:49 Exam Vital signs: Vital Signs Temp 97.9 F 10/06/21 08:57 Pulse 96 10/06/21 08:57 Resp 96 H 10/06/21 08:57 BP 148/78 H 10/06/21 08:57 Pulse Ox 99 10/06/21 08:57 Weight 92.4 kg BMI result Body Mass Index 30.0 - Constitutional Present: no acute distress - Routine HEENT Exam Head: Present: normal inspection - Routine Neck Exam Present: full ROM. Absent: lymphadenopathy - Routine Respiratory Exam Present: CTAB - Routine Cardiovascular Exam Cardiovascular: Present: RRR, S1, S2 - Routine Abdominal Exam Present: soft - Routine Extremities Exam Present: full ROM, joint swelling. Absent: calf tenderness, pedal edema, tenderness - Routine Skin Exam Present: intact. Absent: cyanosis, erythema Data - Labs CBC & Chem 7: 09/01/21 09:15 09/01/21 09:15 - Imaging Radiologist's impression: ITS Impressions Chest X-Ray 07/28/20 11:50 IMPRESSION: No evidence for acute disease in the chest. Sclerotic bone disease similar to previous exams. EXAMINATION: Right shoulder x-ray CLINICAL INFORMATION: Pain COMPARISON: None. TECHNIQUE: 4 views of the right shoulder FINDINGS: Bone alignment is normal. No fracture or dislocation is seen. The glenohumeral joint is normal. There is arthritis at the acromioclavicular joint. There is evidence of diffuse sclerotic bone disease. Soft tissues are unremarkable. IMPRESSION: Sclerotic bone disease. Arthritis at the acromioclavicular joint. EXAMINATION: Right knee x-ray CLINICAL INFORMATION: Pain COMPARISON: None. TECHNIQUE: 4 views right knee FINDINGS: Bone alignment is normal. No fracture or dislocation is seen. The joint spaces are normal. There is no joint effusion. IMPRESSION: Unremarkable exam. Knee X-Ray 07/28/20 11:50 IMPRESSION: No evidence for acute disease in the chest. Sclerotic bone disease similar to previous exams. EXAMINATION: Right shoulder x-ray CLINICAL INFORMATION: Pain COMPARISON: None. TECHNIQUE: 4 views of the right shoulder FINDINGS: Bone alignment is normal. No fracture or dislocation is seen. The glenohumeral joint is normal. There is arthritis at the acromioclavicular joint. There is evidence of diffuse sclerotic bone disease. Soft tissues are unremarkable. IMPRESSION: Sclerotic bone disease. Arthritis at the acromioclavicular joint. EXAMINATION: Right knee x-ray CLINICAL INFORMATION: Pain COMPARISON: None. TECHNIQUE: 4 views right knee FINDINGS: Bone alignment is normal. No fracture or dislocation is seen. The joint spaces are normal. There is no joint effusion. IMPRESSION: Unremarkable exam. Shoulder X-Ray 07/28/20 11:50 IMPRESSION: No evidence for acute disease in the chest. Sclerotic bone disease similar to previous exams. EXAMINATION: Right shoulder x-ray CLINICAL INFORMATION: Pain COMPARISON: None. TECHNIQUE: 4 views of the right shoulder FINDINGS: Bone alignment is normal. No fracture or dislocation is seen. The glenohumeral joint is normal. There is arthritis at the acromioclavicular joint. There is evidence of diffuse sclerotic bone disease. Soft tissues are unremarkable. IMPRESSION: Sclerotic bone disease. Arthritis at the acromioclavicular joint. EXAMINATION: Right knee x-ray CLINICAL INFORMATION: Pain COMPARISON: None. TECHNIQUE: 4 views right knee FINDINGS: Bone alignment is normal. No fracture or dislocation is seen. The joint spaces are normal. There is no joint effusion. IMPRESSION: Unremarkable exam. Assessment and Plan Patient Active problem list reviewed?: Yes (1) Prostate cancer metastatic to bone Status: Chronic Assessment and plan: 1. This is a 81 year-old male with metastatic Prostate Cancer, Bone Metastases diagnosed in 2012. pMSI. BRCA 10/05 negative. He is on LHRH agonist q 6 months. On monthly denosumab. He has been on chemotherapy and different hormonal therapies from July 2014 to August 2021. PSMA PET-CT was performed 08/04/2021, he has PSMA avid disease besides extensive bone metastasis he has supraclavicular and chest lymph nodes. His last treatment was: 6 cycles of chemotherapy with docetaxel and carboplatin administered every 3 weeks until 07/2021. He will continue with Lupron and monthly denosumab. His last PSA was 34.95. It is beginning to trend upwards. He is waiting to see if he can receive Kirsten labeled [id number] for PSMA positive tumors/metastasis. He is scheduled to receive right knee replacement in the following months. He is cleared to undergo surgery from an oncological standpoint. Follow-up in 2 months. - Time Spent With Patient Time Spent with Patient (in minutes): 15
[2021-11-03 09:54] VITALS: BP 139/78; PULSE 96; RESP 18; TEMP 36.2; O2SAT 96; BMI 29.7
--- NOTE | 2021-11-03 15:59 | MHC.HEMONC ---
Patient present for Xgeva injection, Calcium on 11/02/21=9.3. Medication administered in HUGO, patient tolerated it well. Next injection and port flush scheduled for 12/01/21. Follow up with Dr Gonzalez 01/03/22. Patient departed the unit.
--- NOTE | 2021-12-01 14:10 | MHC.HEMONC ---
Patient present for Xgeva injection, Calcium on 11/30/21=9.3. Medication administered in HUGO, patient tolerated it well. Patient reports that he will be coming in for knee replacement on 12/14/21. Next injection scheduled for 01/03/22 and port flush scheduled for 01/12/22. Follow up with Dr Gonzalez 01/03/22. Patient departed the unit.
[2022-01-03 09:59] VITALS: BP 130/72; PULSE 92; TEMP 36.6; O2SAT 97; BMI 28.9
--- NOTE | 2022-01-03 10:09 | PM.HEMONCPN ---
Medical Summary - Medical Summary Date of Service: 01/03/22 Chief complaint: follow-up Medical Summary: DIAGNOSIS: Mr. Morgan was diagnosed with prostate cancer in 2006. THERAPY: 1. He underwent radical retropubic prostatectomy with bilateral pelvic lymphadenectomy on March 31, 2007. He was staged as a T3a [place]'s 4 + 3 prostate adenocarcinoma. 2. He underwent ERBT postoperatively in 2007 for a rising PSA. 3. He was diagnosed with metastatic disease, bony metastasis sometime in 2011 and has been on hormonal manipulation under the care of his urologist Dr. Oreilly. Repeat imaging: Restaging with a PET scan May 14, 2014 showed mild hypermetabolic activity in the right L2 pedicle SUV of 3.4, T11, T12 and T10 SUV of 5.28, and T5, T4 and T3 vertebrae with only residual sites of disease. No additional hypermetabolic activity in the skeleton, and no lymphadenopathy. Diffuse sclerotic lesions throughout cervical, dorsal, lumbar sacral spine, iliac bones and bilateral ribs consistent with old metastatic disease. PSA on May 02, 2014, 25.6 and total testosterone less than 1 ng/dL. 4. After oncology consultation in apr 2014, patient started Denosumab (Xgeva)120 mg subcu monthly, since June 02, 2014. 5. Because of rising PSA noted in July 2014 when it reggie 61, the patient was taken off Casodex. 6. The patient started Xtandi or enzalutamide at a dose of 160 mg once daily on October 14, 2014. 7. Started Xofigo (radium 223)dose of 55 KBq/ per kilo every 4 weeks for 6 doses on 04/05/16. 8. Received palliative radiotherapy to C2 vertebral body at [facility] in June 2017 because of increasing uptake on PET scan worrisome for metastasis. 9. He started zytiga Jul 2017 to Sep 2017. Discontinued for rising PSA. 10. He then received 6 cycles Taxotere from 10/25/17 to January 2018. MSI status on tumor, showed preserved expression of DNA mismatch repair proteins indicating lack of microsatellite instability. Patient?s genetic test result , extended my Risk genetic panel testing was negative. 11. Ketoconazole for 1 month apr/2017. 12. Was seen at [facility] by Dr. Jaqueline Ayala for second opinion as well as consideration of clinical trials, was recommended clinical trial with olaparib +/- Cederinib. If he decides against trial, options would be to reconsider Zytiga, chemotherapy with Cabazitaxel +/- Carboplatinum or Apalutamide. 13. Was on Apalutamide 240 mg once a day for about 3 months. Rising PSA. 14. Switched to Zytiga 1000 mg once a day with prednisone 5 mg b.i.d. from end of December 2018. 15. Discontinued 03/14/2019 because of rising PSA. 16. Started Cabazitaxel March 2019. Treated for Legionella pneumonia after cycle 1 17. Switched to Xtandi in September 2020 18. Started back on docetaxel but added carboplatin since 05/19/2021 because of progressive disease. Olaparib was not approved by insurance carrier. BRCA mutation is negative, Homologous recombination repair gene mutation to be performed if possible. He underwent iliac crest biopsy at the site of bony lesion, however, this was negative for any malignant cells. Interval History Interval history: patient is here in follow-up. He is doing pretty well, he underwent right knee replacement. His pain is much better. He tolerated surgery quite well. He denies fever or chills. He is scheduled to have tele visit with his oncologist in [place] in January. He denies any back, shoulder or bone pain. No recent infections. Review of Systems - Constitutional Reports as per HPI, Reports no additional constitutional complaints - Cardiovascular Reports no additional cardiovascular complaints - Respiratory Reports no additional respiratory complaints - Gastrointestinal Reports no additional gastrointestinal complaints - Neurologic Reports no additional neurologic complaints, Denies headache(s) [facility] Medical History: Medical History (Last Updated 01/03/22 @ 10:57 by Erika Thornton 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 Mother No problems noted. Surgical History: Surgical History (Last Reviewed 12/30/21 @ 12:59 by Filomena Barba CMA) H/O colonoscopy History of appendectomy History of left inguinal hernia repair Onset Date: ~02/2011 History of prostatectomy Onset Date: ~03/31/07 History of shoulder surgery Social History: Social History (Last Reviewed 12/30/21 @ 12:59 by Filomena Barba CMA) Living Situation History: Household Members: Significant Other Housing: House Are you a primary healthcare social worker to a significant other at home: Yes Are you a primary healthcare social worker to a significant other at home comment: has Alzheimers and is bedridden Do you presently have visiting nurse or other home services: Yes Tobacco History: Patient Tobacco Use Status: Former Tobacco user Tobacco use type: Cigarette Smoke Quit Date: age 32 Second Hand Smoke Exposure: Yes Advance Directives: Advance Directives Date on File: 02/15/10 Occupation Assessmet: service: No Current occupational status: retired Oncology Screenings - ECOG Performance Status ECOG Performance Status: 1 Home Medications and Allergies Home Medications Medication Instructions Recorded Confirmed Type denosumab 120 mg/1.7 mL (70 mg/mL) 120 mg SUBCUT Q4W 07/28/20 01/03/22 History subcutaneous solution (Xgeva) leuprolide (6 month) 45 mg (6 45 mg SUBCUT [id number] 07/28/20 01/03/22 History month) subcutaneous syringe ([employer]) omeprazole magnesium 20 mg 20 mg PO DAILY PRN 12/18/20 01/03/22 History capsule,delayed release atorvastatin 80 mg tablet 80 mg PO BEDTIME 12/08/21 01/03/22 History vit C 250 mg-vit E 90 mg-zinc 40 1 tab PO QAM 12/08/21 01/03/22 History mg-copper 1 [id number] capsule ([employer]er[employer]ision AREDS-2) Allergies Allergy/AdvReac Type Severity Reaction Status Date / Time No Known Allergies Allergy Verified 12/30/21 12:58 Exam Vital signs: Vital Signs Temp 97.9 F 01/03/22 09:59 Pulse 92 01/03/22 09:59 Resp 18 11/03/21 09:54 BP 130/72 01/03/22 09:59 Pulse Ox 97 01/03/22 09:59 Intake & Output 01/02/22 01/03/22 01/03/22 18:59 06:59 18:59 Other: Weight 88.8 kg Alicia Weight in Grams 23754 Weight 88.8 kg BMI result Body Mass Index 28.9 - Constitutional Present: no acute distress - Routine HEENT Exam Head: Present: normal inspection - Routine Neck Exam Present: full ROM. Absent: lymphadenopathy - Routine Respiratory Exam Present: CTAB - Routine Cardiovascular Exam Cardiovascular: Present: RRR, S1, S2 - Routine Abdominal Exam Present: soft - Routine Extremities Exam Present: full ROM, joint swelling. Absent: calf tenderness, pedal edema, tenderness - Routine Skin Exam Present: intact. Absent: cyanosis, erythema Data - Labs CBC & Chem 7: 01/03/22 10:36 01/03/22 10:36 - Imaging Radiologist's impression: ITS Impressions Chest X-Ray 07/28/20 11:50 IMPRESSION: No evidence for acute disease in the chest. Sclerotic bone disease similar to previous exams. EXAMINATION: Right shoulder x-ray CLINICAL INFORMATION: Pain COMPARISON: None. TECHNIQUE: 4 views of the right shoulder FINDINGS: Bone alignment is normal. No fracture or dislocation is seen. The glenohumeral joint is normal. There is arthritis at the acromioclavicular joint. There is evidence of diffuse sclerotic bone disease. Soft tissues are unremarkable. IMPRESSION: Sclerotic bone disease. Arthritis at the acromioclavicular joint. EXAMINATION: Right knee x-ray CLINICAL INFORMATION: Pain COMPARISON: None. TECHNIQUE: 4 views right knee FINDINGS: Bone alignment is normal. No fracture or dislocation is seen. The joint spaces are normal. There is no joint effusion. IMPRESSION: Unremarkable exam. Knee X-Ray 07/28/20 11:50 IMPRESSION: No evidence for acute disease in the chest. Sclerotic bone disease similar to previous exams. EXAMINATION: Right shoulder x-ray CLINICAL INFORMATION: Pain COMPARISON: None. TECHNIQUE: 4 views of the right shoulder FINDINGS: Bone alignment is normal. No fracture or dislocation is seen. The glenohumeral joint is normal. There is arthritis at the acromioclavicular joint. There is evidence of diffuse sclerotic bone disease. Soft tissues are unremarkable. IMPRESSION: Sclerotic bone disease. Arthritis at the acromioclavicular joint. EXAMINATION: Right knee x-ray CLINICAL INFORMATION: Pain COMPARISON: None. TECHNIQUE: 4 views right knee FINDINGS: Bone alignment is normal. No fracture or dislocation is seen. The joint spaces are normal. There is no joint effusion. IMPRESSION: Unremarkable exam. Shoulder X-Ray 07/28/20 11:50 IMPRESSION: No evidence for acute disease in the chest. Sclerotic bone disease similar to previous exams. EXAMINATION: Right shoulder x-ray CLINICAL INFORMATION: Pain COMPARISON: None. TECHNIQUE: 4 views of the right shoulder FINDINGS: Bone alignment is normal. No fracture or dislocation is seen. The glenohumeral joint is normal. There is arthritis at the acromioclavicular joint. There is evidence of diffuse sclerotic bone disease. Soft tissues are unremarkable. IMPRESSION: Sclerotic bone disease. Arthritis at the acromioclavicular joint. EXAMINATION: Right knee x-ray CLINICAL INFORMATION: Pain COMPARISON: None. TECHNIQUE: 4 views right knee FINDINGS: Bone alignment is normal. No fracture or dislocation is seen. The joint spaces are normal. There is no joint effusion. IMPRESSION: Unremarkable exam. Assessment and Plan Patient Active problem list reviewed?: Yes (1) Prostate cancer metastatic to bone Status: Chronic Assessment and plan: 1. This is a 81 year-old male with metastatic Prostate Cancer, Bone Metastases diagnosed in 2012. pMSI. BRCA 10/05 negative. He is on LHRH agonist q 6 months. On monthly denosumab. He has been on chemotherapy and different hormonal therapies from July 2014 to August 2021. PSMA PET-CT was performed 08/04/2021, he has PSMA avid disease besides extensive bone metastasis he has supraclavicular and chest lymph nodes. His last treatment was: 6 cycles of chemotherapy with docetaxel and carboplatin administered every 3 weeks until 07/2021. He will continue with Lupron and monthly denosumab. His last PSA was 93.66 NG/mL. He is waiting to see if he can receive Kirsten labeled [id number] for PSMA positive tumors/metastasis. He underwent right knee replacement successfully. Overall he feels very well and has no symptoms to report. Repeat bone scan has been ordered at this time. 2. Blood work shows mild normocytic anemia, probably related to recent surgery. Follow-up in 1 month. - Time Spent With Patient Time Spent with Patient (in minutes): 15
[2022-01-03 11:00] LABS: Hematocrit 32.5 % (42.0-52.0); Hemoglobin 10.3 g/dl (14.0-18.0); Mean Corpuscular HGB Conc 31.7 g/dl (31.0-36.0); Mean Corpuscular Hemoglobin 31.1 pg (27.0-33.0); Mean Corpuscular Volume 98.2 fL (80.0-98.0); Mean Platelet Volume 8.6 fL (9.4-12.4); Platelet Count 285 X10*3/uL (160-400); Red Blood Count 3.31 X10*6/uL (4.60-5.80); Red Cell Distribution Width 14.1 % (11.0-16.0); White Blood Count 3.2 X10*3/uL (4.8-10.8)
[2022-01-03 11:14] LABS: Anion Gap 13 (12-20); Blood Urea Nitrogen 36 mg/dL (9-16); Calcium 9.7 mg/dL (8.4-10.2); Carbon Dioxide 25 mmol/L (22-29); Chloride 106 mmol/L (96-108); Estimated Glomerular Filt Rate > 60; Glucose Fasting 126 mg/dL (60-99); Potassium 4.3 mmol/L (3.3-5.1); Sodium 140 mmol/L (135-145)
[2022-01-03 11:38] LABS: Prostate Specific Antigen 93.66 ng/mL (<0.05-4.0)
--- NOTE | 2022-01-03 13:23 | MHC.HEMONC ---
Labs drawn, calcium 9.7. Denosumab 120mg sc given as ordered. Scheduled for next injection and port flush in 1 month.
--- NOTE | 2022-01-03 16:10 | MHC.HEMONC ---
Patient arrived for follow up with Dr Gonzalez, his son Pro was present. Vital signs done, medications reviewed and labs drawn by phlebotomy. Dr Gonzalez in to see the patient. Follow up scheduled for 03/08/22. Lab result from [employer] obtained and mailed to patient. Patient departed the unit.
--- NOTE | 2022-01-04 10:50 | HO.HEMONCSCH ---
NM bone scan sent to [facility].
[2022-01-08 20:16] LABS: Testosterone, Free 0.6 pg/mL (30.0-135.0); Testosterone, Total 6 ng/dL (250-1100)
--- NOTE | 2022-02-01 09:59 | PM.HEMONCPN ---
Medical Summary - Medical Summary Date of Service: 02/03/22 Chief complaint: Follow-up Medical Summary: DIAGNOSIS: Mr. Morgan was diagnosed with prostate cancer in 2006. THERAPY: 1. He underwent radical retropubic prostatectomy with bilateral pelvic lymphadenectomy on March 31, 2007. He was staged as a T3a [place]'s 4 + 3 prostate adenocarcinoma. 2. He underwent ERBT postoperatively in 2007 for a rising PSA. 3. He was diagnosed with metastatic disease, bony metastasis sometime in 2011 and has been on hormonal manipulation under the care of his urologist Dr. Oreilly. Repeat imaging: Restaging with a PET scan May 14, 2014 showed mild hypermetabolic activity in the right L2 pedicle SUV of 3.4, T11, T12 and T10 SUV of 5.28, and T5, T4 and T3 vertebrae with only residual sites of disease. No additional hypermetabolic activity in the skeleton, and no lymphadenopathy. Diffuse sclerotic lesions throughout cervical, dorsal, lumbar sacral spine, iliac bones and bilateral ribs consistent with old metastatic disease. PSA on May 02, 2014, 25.6 and total testosterone less than 1 ng/dL. 4. After oncology consultation in apr 2014, patient started Denosumab (Xgeva)120 mg subcu monthly, since June 02, 2014. 5. Because of rising PSA noted in July 2014 when it reggie 61, the patient was taken off Casodex. 6. The patient started Xtandi or enzalutamide at a dose of 160 mg once daily on October 14, 2014. 7. Started Xofigo (radium 223)dose of 55 KBq/ per kilo every 4 weeks for 6 doses on 04/05/16. 8. Received palliative radiotherapy to C2 vertebral body at [facility] in June 2017 because of increasing uptake on PET scan worrisome for metastasis. 9. He started zytiga Jul 2017 to Sep 2017. Discontinued for rising PSA. 10. He then received 6 cycles Taxotere from 10/25/17 to January 2018. MSI status on tumor, showed preserved expression of DNA mismatch repair proteins indicating lack of microsatellite instability. Patient?s genetic test result , extended my Risk genetic panel testing was negative. 11. Ketoconazole for 1 month apr/2017. 12. Was seen at [facility] by Dr. Jaqueline Ayala for second opinion as well as consideration of clinical trials, was recommended clinical trial with olaparib +/- Cederinib. If he decides against trial, options would be to reconsider Zytiga, chemotherapy with Cabazitaxel +/- Carboplatinum or Apalutamide. 13. Was on Apalutamide 240 mg once a day for about 3 months. Rising PSA. 14. Switched to Zytiga 1000 mg once a day with prednisone 5 mg b.i.d. from end of December 2018. 15. Discontinued 03/14/2019 because of rising PSA. 16. Started Cabazitaxel March 2019. Treated for Legionella pneumonia after cycle 1 17. Switched to Xtandi in September 2020 18. Started back on docetaxel but added carboplatin since 05/19/2021 because of progressive disease. Olaparib was not approved by insurance carrier. BRCA mutation is negative, Homologous recombination repair gene mutation to be performed if possible. He underwent iliac crest biopsy at the site of bony lesion, however, this was negative for any malignant cells. Interval History Interval history: Patient is here in follow-up. He is doing well but he unfortunately received some bad news from physician at [facility]. He was told that because he received radium treatment before, he may not be eligible for lutetium treatment as it has shown to severely suppressed the bone marrow. More ever, [place] in treatment is not yet available anywhere [place] the country. He is quite disappointed about having to resume chemotherapy which he was told to do. He has had the best response to docetaxel/carboplatin combination in the recent years. He says the last treatment wiped him out and he cannot be on the same schedule as he was on previously. We discussed dose reductions. He also denies any significant bone pain at this time. Review of Systems - Constitutional Reports as per HPI, Reports no additional constitutional complaints - Cardiovascular Reports no additional cardiovascular complaints - Respiratory Reports no additional respiratory complaints - Gastrointestinal Reports no additional gastrointestinal complaints - Neurologic Reports no additional neurologic complaints, Denies headache(s) [facility] Medical History: Medical History (Last Reviewed 01/27/22 @ 09:47 by Michelle Fontenot [facility]) Acquired hypothyroidism Ascending aorta dilatation COVID-19 vaccine series completed Diabetes mellitus Family history of anesthesia complication GERD without esophagitis History of chemotherapy Legionella pneumonia Non-rheumatic aortic regurgitation Overweight (BMI 25.0-29.9) Port-A-Cath in place Primary osteoarthritis of right knee 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 Mother No problems noted. Surgical History: Surgical History (Last Reviewed 01/27/22 @ 09:47 by BHARTI Eli) H/O colonoscopy History of appendectomy History of left inguinal hernia repair Onset Date: ~02/2011 History of prostatectomy Onset Date: ~03/31/07 History of shoulder surgery History of total right knee replacement Social History: Social History (Last Reviewed 01/27/22 @ 09:47 by BHARTI Eli) Living Situation History: Household Members: Significant Other Housing: House Are you a primary skin care instructor to a significant other at home: Yes Are you a primary skin care instructor to a significant other at home comment: has Alzheimers and is bedridden Do you presently have visiting nurse or other home services: Yes Tobacco History: Patient Tobacco Use Status: Former Tobacco user Tobacco use type: Cigarette Smoke Quit Date: age 32 Second Hand Smoke Exposure: Yes Advance Directives: Advance Directives Date on File: 02/15/10 Occupation Assessmet: service: No Current occupational status: retired Oncology Screenings - ECOG Performance Status ECOG Performance Status: 1 Home Medications and Allergies Current Medications: Current Medications Denosumab (Denosumab 120 Mg/1.7 Ml Vial) 120 mg SUBCUT ONCE RAIMUNDO Stop: 02/01/22 23:59 Home Medications Medication Instructions Recorded Confirmed Type denosumab 120 mg/1.7 mL (70 mg/mL) 120 mg SUBCUT Q4W 07/28/20 01/20/22 History subcutaneous solution (Xgeva) leuprolide (6 month) 45 mg (6 45 mg SUBCUT [id number] 07/28/20 01/20/22 History month) subcutaneous syringe (Eligard) omeprazole magnesium 20 mg 20 mg PO DAILY PRN 12/18/20 01/20/22 History capsule,delayed release vit C 250 mg-vit E 90 mg-zinc 40 1 tab PO QAM 12/08/21 01/20/22 History mg-copper 1 [id number] capsule (PreserVision AREDS-2) Allergies Allergy/AdvReac Type Severity Reaction Status Date / Time No Known Allergies Allergy Verified 01/27/22 09:47 Exam Vital signs: Vital Signs Temp 97.9 F 01/03/22 09:59 Pulse 92 01/03/22 09:59 Resp 18 11/03/21 09:54 BP 130/72 01/03/22 09:59 Pulse Ox 97 01/03/22 09:59 Weight 88.8 kg BMI result Body Mass Index 28.9 - Constitutional Present: no acute distress - Routine HEENT Exam Head: Present: normal inspection Eye: Present: EOMI - Routine Neck Exam Present: full ROM. Absent: lymphadenopathy - Routine Respiratory Exam Present: CTAB - Routine Cardiovascular Exam Cardiovascular: Present: RRR, S1, S2 - Routine Abdominal Exam Present: soft - Routine Extremities Exam Present: full ROM, joint swelling. Absent: calf tenderness, pedal edema, tenderness - Routine Skin Exam Present: intact. Absent: cyanosis, erythema Data - Labs CBC & Chem 7: 01/03/22 10:36 01/03/22 10:36 - Imaging Radiologist's impression: ITS Impressions Chest X-Ray 07/28/20 11:50 IMPRESSION: No evidence for acute disease in the chest. Sclerotic bone disease similar to previous exams. EXAMINATION: Right shoulder x-ray CLINICAL INFORMATION: Pain COMPARISON: None. TECHNIQUE: 4 views of the right shoulder FINDINGS: Bone alignment is normal. No fracture or dislocation is seen. The glenohumeral joint is normal. There is arthritis at the acromioclavicular joint. There is evidence of diffuse sclerotic bone disease. Soft tissues are unremarkable. IMPRESSION: Sclerotic bone disease. Arthritis at the acromioclavicular joint. EXAMINATION: Right knee x-ray CLINICAL INFORMATION: Pain COMPARISON: None. TECHNIQUE: 4 views right knee FINDINGS: Bone alignment is normal. No fracture or dislocation is seen. The joint spaces are normal. There is no joint effusion. IMPRESSION: Unremarkable exam. Knee X-Ray 07/28/20 11:50 IMPRESSION: No evidence for acute disease in the chest. Sclerotic bone disease similar to previous exams. EXAMINATION: Right shoulder x-ray CLINICAL INFORMATION: Pain COMPARISON: None. TECHNIQUE: 4 views of the right shoulder FINDINGS: Bone alignment is normal. No fracture or dislocation is seen. The glenohumeral joint is normal. There is arthritis at the acromioclavicular joint. There is evidence of diffuse sclerotic bone disease. Soft tissues are unremarkable. IMPRESSION: Sclerotic bone disease. Arthritis at the acromioclavicular joint. EXAMINATION: Right knee x-ray CLINICAL INFORMATION: Pain COMPARISON: None. TECHNIQUE: 4 views right knee FINDINGS: Bone alignment is normal. No fracture or dislocation is seen. The joint spaces are normal. There is no joint effusion. IMPRESSION: Unremarkable exam. Shoulder X-Ray 07/28/20 11:50 IMPRESSION: No evidence for acute disease in the chest. Sclerotic bone disease similar to previous exams. EXAMINATION: Right shoulder x-ray CLINICAL INFORMATION: Pain COMPARISON: None. TECHNIQUE: 4 views of the right shoulder FINDINGS: Bone alignment is normal. No fracture or dislocation is seen. The glenohumeral joint is normal. There is arthritis at the acromioclavicular joint. There is evidence of diffuse sclerotic bone disease. Soft tissues are unremarkable. IMPRESSION: Sclerotic bone disease. Arthritis at the acromioclavicular joint. EXAMINATION: Right knee x-ray CLINICAL INFORMATION: Pain COMPARISON: None. TECHNIQUE: 4 views right knee FINDINGS: Bone alignment is normal. No fracture or dislocation is seen. The joint spaces are normal. There is no joint effusion. IMPRESSION: Unremarkable exam. Assessment and Plan Patient Active problem list reviewed?: Yes (1) Prostate cancer metastatic to bone Status: Chronic Assessment and plan: 1. This is a 81 year-old male with metastatic Prostate Cancer, Bone Metastases diagnosed in 2012. pMSI. BRCA 10/05 negative. He is on LHRH agonist q 6 months. On monthly denosumab. He has been on chemotherapy and different hormonal therapies from July 2014 to August 2021. PSMA PET-CT was performed 08/04/2021, he has PSMA avid disease besides extensive bone metastasis he has supraclavicular and chest lymph nodes. His last treatment was: 6 cycles of chemotherapy with docetaxel and carboplatin administered every 3 weeks until 07/2021. He will continue with Lupron and monthly denosumab. His last PSA was 82.17 NG/mL. He was hoping to receive Kirsten labeled PSMA-617 for PSMA positive tumors/metastasis, unfortunately this is still not commercially available although it is FDA approved. There were also reports of severe bone marrow suppression in patients with receive previous radium treatment and therefore he may not be a candidate as he has received it in the past. At this time he has been recommended either enrollment into a clinical trial or resuming docetaxel/carboplatin which he was on until late 2020. Because of toxicity and side effects we discussed reducing doses to 75-80% and also increasing interval between treatments to every 4 weeks rather than 3 weeks. Patient is scheduled to start treatment in 2 weeks. He will continue with monthly denosumab. Follow-up in 1 month. - Time Spent With Patient Time Spent with Patient (in minutes): 15
[2022-02-01 10:07] VITALS: BP 145/67; PULSE 84; TEMP 36.5; O2SAT 99
--- NOTE | 2022-02-01 15:38 | MHC.HEMONC ---
Addendum entered by Fauzia Acuna RN 02/01/22 15:43: Telephone call to Makenna in phlebotomy. Home draw changed from Monday to Monday Original Note: Here for monthly denosumab and port flush. Home labs done 01/31 reviewed. Calcium 9.0. Denosumab given as ordered and tolerated well. Port accessed with good blood return noted. Flushed with heparin flush, and de-accessed. Has appointment this afternoon with [facility]. Follow up with Dr Gonzalez in AM.
[2022-02-02 08:22] VITALS: BP 139/69; PULSE 86; RESP 18; TEMP 36.3; O2SAT 97; BMI 28.4
--- NOTE | 2022-02-02 12:15 | MHC.HEMONC ---
Here for follow up with Dr Gonzalez. Had appointment with [facility] 02/01. Pt to restart chemo at the end of the month. Scheduled to start 02/18. Order faxed to lab to change home lab draws to weekly starting 02/17. Denosumab also changed to coincide with chemo. Discussed with Dr Gonzalez, and is ok to reschedule denosumab to 03/18, which will be 6 weeks from last denosumab. Rescheduled next denosumab to 03/18.
--- NOTE | 2022-02-02 14:37 | HO.HEMONCPA ---
No PA required for Emend, Docetaxel & Carboplatin. Drugs covered under Medicare Part B.
[2022-02-18 10:31] VITALS: BP 135/69; PULSE 83; RESP 18; TEMP 36.3; O2SAT 99; BMI 28.0
[2022-02-18] MEDS: Famotidine/PF 20 MG/2 ML VIAL IVPUSH (11:22)
[2022-02-18] MEDS: Fosaprepitant Dimeglumine 150 MG in 0.9 % Sodium Chloride 145 ML 300 MG IV (11:27)
[2022-02-18] MEDS: diphenhydrAMINE HCL 25 MG TABLET PO (11:28)
[2022-02-18] MEDS: Acetaminophen 325 MG TABLET 650 MG PO (11:28)
[2022-02-18] MEDS: dexAMETHasone sod phosphate/NS 12 MG/50 ML PIGGYBACK 200 MG IV (12:31)
[2022-02-18] MEDS: Heparin Sodium,Porcine Flush 500 UNIT/5 ML SYRINGE IVFLUSH (14:44)
--- NOTE | 2022-02-18 17:18 | MHC.HEMONC ---
Pt was in for C1D1 Carboplatin/Docetaxel, VSS, weight stable, in good spirits, reports feeling well today. Pt had his labs drawn at home on 02/17, all reviewed. Nurse confirmed that [facility] had received updated orders to draw pt's labs weekly on . Pt's Carbo and Docetaxel were both ordered at 80% and pt's tx cycle was changed to 28 days, per Dr. Gonzalez. Pt is aware. Nurse reviewed pt's clinical summary, confirmed pt is to continue receiving Denosumab 120mg SC monthly while on this regimen. Nurse had pt sign consent for tx form and filed in chart. Nurse accessed pt's R chest port w/ 20g, 3/4 leyva needle, found positive blood return, admin pre-meds, Tylenol and benadryl PO, and Dexamethasone, Zofran, Pepcid, and Emend IV. Docetaxel was admin over 1 hr and Carboplatin over 30 minutes, which pt tolerated well. Pt's port was flushed w/ NS and heparin 500 units, then de-accessed. Nurse taught pt that he is to take PRN Zofran for nausea and to take Dexamethasone 4mg BID on days 2 and 3 to complement the IV emend he received, new scrip for Dex was sent to pt's pharmacy. Pt received d/c packet w/ next tx, C2D1 booked on 03/18/22, as well as f/u appt on that day.
[2022-03-18 08:44] VITALS: BMI 27.8
[2022-03-18 08:45] VITALS: BP 132/65; PULSE 85; RESP 18; TEMP 35.9; O2SAT 97
[2022-03-18] MEDS: Famotidine/PF 20 MG/2 ML VIAL IVPUSH (09:38)
[2022-03-18] MEDS: Heparin Sodium,Porcine Flush 500 UNIT/5 ML SYRINGE IVFLUSH (09:38)
[2022-03-18] MEDS: dexAMETHasone sod phosphate/NS 12 MG/50 ML PIGGYBACK 200 MG IV (09:40)
[2022-03-18] MEDS: Acetaminophen 325 MG TABLET 650 MG PO (09:42)
[2022-03-18] MEDS: diphenhydrAMINE HCL 25 MG TABLET PO (09:42)
--- NOTE | 2022-03-18 09:44 | MHC.HEMONCSW ---
scored low on distress screen. here for treatment, reports coping well. continues to be wifes customs brokerage agent, reports managing well. does not require sw interventions at this time. he is aware of my availability.
[2022-03-18] MEDS: Fosaprepitant Dimeglumine 150 MG in 0.9 % Sodium Chloride 145 ML 300 MG IV (10:09)
--- NOTE | 2022-03-18 10:37 | HO.HEMONCPA ---
NO PA REQUIRED FOR DENOSUMAB. DRUG COVERED UNDER MEDICARE PART B BENEFITS.
[2022-03-18] MEDS: SODIUM CHLORIDE 0.9% IV (12:02)
[2022-03-18] MEDS: CARBOPLATIN IV (12:02)
--- NOTE | 2022-03-18 14:11 | MHC.HEMONC ---
Pt came in for C2D1 Carboplatin/Docetaxel, had VSS, weight stable, reported feeling extreme fatigue, but no other symptoms. Pt's labs were drawn at home the day before, all reviewed. Carbo and Docetaxel doses were still ordered at 80% and pt's tx cycle continues at 28 day cycle, per Dr. Gonzalez. Nurse checked w/ Supervisor [employer] Essie, confirmed pt needs no PA for monthly Denosumab. Nurse admin Denosumab 120 mg SC to pt's LUE, which was well-tolerated. Nurse accessed pt's R chest port w/ 20g, 3/4 leyva needle, found positive blood return, admin pre-meds, Tylenol and benadryl PO, and Dexamethasone, Zofran, Pepcid, and Emend IV. Docetaxel was admin over 1 hr and Carboplatin over 30 minutes, which pt tolerated well. Pt's port was flushed w/ NS and heparin 500 units, then de-accessed. Pt said he has f/u booked on Mon w/ Dr. Gonzalez, but he does not want to come in again another day, so he asked to reschedule f/u. Nurse reviewed w/ pt that he is to take Dexamethasone 4mg BID on days 2 and 3, and nurse provided d/c packet w/ C3D1 booked on 04/15/22, as well as monthly Denosumab and next Onc f/u.
[2022-04-15 08:50] VITALS: BP 146/69; PULSE 91; TEMP 35.7; O2SAT 97; BMI 27.6
--- NOTE | 2022-04-15 08:51 | PM.HEMONCPN ---
Medical Summary - Medical Summary Date of Service: 04/15/22 Chief complaint: Follow-up Medical Summary: DIAGNOSIS: Mr. Morgan was diagnosed with prostate cancer in 2006. THERAPY: 1. He underwent radical retropubic prostatectomy with bilateral pelvic lymphadenectomy on March 31, 2007. 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 2. He underwent ERBT postoperatively in 2007 for a rising PSA. 3. He was diagnosed with metastatic disease, bony metastasis sometime in 2011 and has been on hormonal manipulation under the care of his urologist Dr. Oreilly. Repeat imaging: Restaging with a PET scan May 14, 2014 showed mild hypermetabolic activity in the right L2 pedicle SUV of 3.4, T11, T12 and T10 SUV of 5.28, and T5, T4 and T3 vertebrae with only residual sites of disease. No additional hypermetabolic activity in the skeleton, and no lymphadenopathy. Diffuse sclerotic lesions throughout cervical, dorsal, lumbar sacral spine, iliac bones and bilateral ribs consistent with old metastatic disease. PSA on May 02, 2014, 25.6 and total testosterone less than 1 ng/dL. 4. After oncology consultation in apr 2014, patient started Denosumab (Xgeva)120 mg subcu monthly, since June 02, 2014. 5. Because of rising PSA noted in July 2014 when it reggie 61, the patient was taken off Casodex. 6. The patient started Xtandi or enzalutamide at a dose of 160 mg once daily on October 14, 2014. 7. Started Xofigo (radium 223)dose of 55 KBq/ per kilo every 4 weeks for 6 doses on 04/05/16. 8. Received palliative radiotherapy to C2 vertebral body at [facility] in June 2017 because of increasing uptake on PET scan worrisome for metastasis. 9. He started zytiga Jul 2017 to Sep 2017. Discontinued for rising PSA. 10. He then received 6 cycles Taxotere from 10/25/17 to January 2018. MSI status on tumor, showed preserved expression of DNA mismatch repair proteins indicating lack of microsatellite instability. Patient?s genetic test result , extended my Risk genetic panel testing was negative. 11. Ketoconazole for 1 month apr/2017. 12. Was seen at [facility] by Dr. Jaqueline Ayala for second opinion as well as consideration of clinical trials, was recommended clinical trial with olaparib +/- Cederinib. If he decides against trial, options would be to reconsider Zytiga, chemotherapy with Cabazitaxel +/- Carboplatinum or Apalutamide. 13. Was on Apalutamide 240 mg once a day for about 3 months. Rising PSA. 14. Switched to Zytiga 1000 mg once a day with prednisone 5 mg b.i.d. from end of December 2018. 15. Discontinued 03/14/2019 because of rising PSA. 16. Started Cabazitaxel March 2019. Treated for Legionella pneumonia after cycle 1 17. Switched to Xtandi in September 2020 18. Started back on docetaxel but added carboplatin since 05/19/2021 because of progressive disease. Olaparib was not approved by insurance carrier. BRCA mutation is negative, Homologous recombination repair gene mutation to be performed if possible. He underwent iliac crest biopsy at the site of bony lesion, however, this was negative for any malignant cells. Interval History Interval history: Patient is here in follow-up and scheduled treatment. He is doing about the same. He did admit to some increased pain in the right hip and shoulder region. He feels poorly for a week after chemo and then recovers. He continues to be the sole provider for his . He denies any recent infections. No other side effects such as nausea, diarrhea, loss of appetite or weight loss. Review of Systems - Constitutional Reports as per HPI, Denies anorexia, Denies fatigue, Denies poor appetite - Cardiovascular Reports no additional cardiovascular complaints - Respiratory Reports no additional respiratory complaints - Gastrointestinal Reports no additional gastrointestinal complaints - Neurologic Reports no additional neurologic complaints, Denies headache(s) [facility] Medical History: Medical History (Last Reviewed 03/18/22 @ 09:47 by Jama Gipson RN) Acquired hypothyroidism Ascending aorta dilatation COVID-19 vaccine series completed Diabetes mellitus Family history of anesthesia complication GERD without esophagitis History of chemotherapy Legionella pneumonia Non-rheumatic aortic regurgitation Overweight (BMI 25.0-29.9) Port-A-Cath in place Primary osteoarthritis of right knee 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 Mother No problems noted. Surgical History: Surgical History (Last Reviewed 03/31/22 @ 09:35 by Renetta Garces) H/O colonoscopy History of appendectomy History of left inguinal hernia repair Onset Date: ~02/2011 History of prostatectomy Onset Date: ~03/31/07 History of shoulder surgery History of total right knee replacement Social History: Social History (Last Reviewed 03/31/22 @ 09:35 by Renetta Garces) Living Situation History: Household Members: Significant Other Housing: House Are you a primary career center director to a significant other at home: Yes Are you a primary career center director to a significant other at home comment: has Alzheimers and is bedridden Do you presently have visiting nurse or other home services: Yes Tobacco History: Patient Tobacco Use Status: Former Tobacco user Tobacco use type: Cigarette Smoke Quit Date: age 32 Second Hand Smoke Exposure: Yes Advance Directives: Advance Directives Date on File: 02/15/10 Occupation Assessmet: service: No Current occupational status: retired Oncology Screenings - ECOG Performance Status ECOG Performance Status: 1 Home Medications and Allergies Current Medications: Current Medications Acetaminophen (Acetaminophen 325 Mg Tablet) 650 mg PO ONCE RAIMUNDO Stop: 04/15/22 23:59 Diphenhydramine HCl (Diphenhydramine Hcl 25 Mg Tablet) 25 mg PO ONCE RAIUMNDO Stop: 04/15/22 23:59 Famotidine (Famotidine/Pf 20 Mg/2 Ml Vial) 20 mg IVPUSH ONCE RAIMUNDO Stop: 04/15/22 23:59 Heparin Sodium (Porcine) (Heparin Sodium,Porcine Flush 500 Unit/5 Ml Syringe) 500 unit IVFLUSH ONCE RAIMUNDO Stop: 04/15/22 23:59 Dexamethasone Sodium Phosphate (Decadron) 12 mg in 50 mls @ 200 mls/hr IV ONCE RAIMUNDO Stop: 04/15/22 23:59 Ondansetron HCl (Zofran) 16 mg in 50 mls @ 200 mls/hr IV ONCE RAIMUNDO Stop: 04/15/22 23:59 Fosaprepitant 150 mg/ Sodium (Chloride) 150 mls @ 300 mls/hr IV ONCE RAIMUNDO Stop: 04/15/22 23:59 Home Medications Medication Instructions Recorded Confirmed Type denosumab 120 mg/1.7 mL (70 mg/mL) 120 mg subcut Q4W 07/28/20 03/31/22 History subcutaneous solution (Xgeva) vit C 250 mg-vit E 90 mg-zinc 40 1 tab PO QAM 12/08/21 03/31/22 History mg-copper 1 [id number] capsule (PreserVision AREDS-2) celecoxib 200 mg capsule 200 mg PO BID 02/02/22 03/31/22 History ondansetron HCl 4 mg tablet 1 tab PO Q6H PRN nausea 02/02/22 03/31/22 History dexamethasone 4 mg tablet 4 mg PO BID 02/18/22 03/31/22 History famotidine 20 mg tablet 20 mg PO DAILY 03/31/22 03/31/22 History leuprolide acetate (6 month) 45 mg 45 mg subcut [id number] 03/31/22 03/31/22 History (6 month) subcutaneous syringe (Fiberspar) Allergies Allergy/AdvReac Type Severity Reaction Status Date / Time No Known Allergies Allergy Verified 03/31/22 09:36 Exam Vital signs: Vital Signs Temp 96.3 F L 04/15/22 08:50 Pulse 91 04/15/22 08:50 Resp 18 03/18/22 08:45 BP 146/69 H 04/15/22 08:50 Pulse Ox 97 04/15/22 08:50 O2 Del Method 04/15/22 08:50 Intake & Output 04/14/22 04/15/22 04/15/22 18:59 06:59 18:59 Other: Weight 84.9 kg [place] Weight in Grams 90258 Weight 84.9 kg BMI result Body Mass Index 27.6 - Constitutional Present: no acute distress - Routine HEENT Exam Head: Present: normal inspection - Routine Neck Exam Present: full ROM. Absent: lymphadenopathy - Routine Respiratory Exam Present: CTAB - Routine Cardiovascular Exam Cardiovascular: Present: RRR, S1, S2 - Routine Abdominal Exam Present: soft - Routine Extremities Exam Present: full ROM, joint swelling. Absent: calf tenderness, pedal edema, tenderness - Routine Skin Exam Present: intact. Absent: cyanosis, erythema Data - Labs CBC & Chem 7: 01/03/22 10:36 01/03/22 10:36 - Imaging Radiologist's impression: ITS Impressions Chest X-Ray 07/28/20 11:50 IMPRESSION: No evidence for acute disease in the chest. Sclerotic bone disease similar to previous exams. EXAMINATION: Right shoulder x-ray CLINICAL INFORMATION: Pain COMPARISON: None. TECHNIQUE: 4 views of the right shoulder FINDINGS: Bone alignment is normal. No fracture or dislocation is seen. The glenohumeral joint is normal. There is arthritis at the acromioclavicular joint. There is evidence of diffuse sclerotic bone disease. Soft tissues are unremarkable. IMPRESSION: Sclerotic bone disease. Arthritis at the acromioclavicular joint. EXAMINATION: Right knee x-ray CLINICAL INFORMATION: Pain COMPARISON: None. TECHNIQUE: 4 views right knee FINDINGS: Bone alignment is normal. No fracture or dislocation is seen. The joint spaces are normal. There is no joint effusion. IMPRESSION: Unremarkable exam. Knee X-Ray 07/28/20 11:50 IMPRESSION: No evidence for acute disease in the chest. Sclerotic bone disease similar to previous exams. EXAMINATION: Right shoulder x-ray CLINICAL INFORMATION: Pain COMPARISON: None. TECHNIQUE: 4 views of the right shoulder FINDINGS: Bone alignment is normal. No fracture or dislocation is seen. The glenohumeral joint is normal. There is arthritis at the acromioclavicular joint. There is evidence of diffuse sclerotic bone disease. Soft tissues are unremarkable. IMPRESSION: Sclerotic bone disease. Arthritis at the acromioclavicular joint. EXAMINATION: Right knee x-ray CLINICAL INFORMATION: Pain COMPARISON: None. TECHNIQUE: 4 views right knee FINDINGS: Bone alignment is normal. No fracture or dislocation is seen. The joint spaces are normal. There is no joint effusion. IMPRESSION: Unremarkable exam. Shoulder X-Ray 07/28/20 11:50 IMPRESSION: No evidence for acute disease in the chest. Sclerotic bone disease similar to previous exams. EXAMINATION: Right shoulder x-ray CLINICAL INFORMATION: Pain COMPARISON: None. TECHNIQUE: 4 views of the right shoulder FINDINGS: Bone alignment is normal. No fracture or dislocation is seen. The glenohumeral joint is normal. There is arthritis at the acromioclavicular joint. There is evidence of diffuse sclerotic bone disease. Soft tissues are unremarkable. IMPRESSION: Sclerotic bone disease. Arthritis at the acromioclavicular joint. EXAMINATION: Right knee x-ray CLINICAL INFORMATION: Pain COMPARISON: None. TECHNIQUE: 4 views right knee FINDINGS: Bone alignment is normal. No fracture or dislocation is seen. The joint spaces are normal. There is no joint effusion. IMPRESSION: Unremarkable exam. Assessment and Plan Patient Active problem list reviewed?: Yes (1) Prostate cancer metastatic to bone Status: Chronic Assessment and plan: 1. This is a 81 year-old male with metastatic Prostate Cancer, Bone Metastases diagnosed in 2012. pMSI. BRCA 10/05 negative. He is on LHRH agonist q 6 months. On monthly denosumab. He has been on chemotherapy and different hormonal therapies from July 2014 to August 2021. PSMA PET-CT was performed 08/04/2021, he has PSMA avid disease besides extensive bone metastasis he has supraclavicular and chest lymph nodes. His last treatment was: 6 cycles of chemotherapy with docetaxel and carboplatin administered every 3 weeks until 07/2021. He will continue with Lupron and monthly denosumab. His last PSA was 154.6 NG/mL in february 2022. He was hoping to receive Kirsten labeled PSMA-617 for PSMA positive tumors/metastasis, unfortunately it was not commercially available although FDA approved. He was going a to [facility] where he was initially felt to be a candidate to receive this treatment. Subsequently he was told about bone marrow suppression as he received previous radium treatment. He was recommended either enrollment into a clinical trial or resuming docetaxel/carboplatin which he was on until late 2020. Because of toxicity and side effects we discussed reducing doses to 75-80% and also increasing interval between treatments to every 4 weeks rather than 3 weeks. Patient resumed docetaxel with carboplatin in January 2022 after a 5 month hiatus during which he underwent right knee replacement. Today is cycle 8 day 1. He continues to have progression in his PSA. He has not been scanned since his PET scan in July 2021. Although his performance status has declined in the last year, he continues to be active and takes care of his who has severe dementia. I will talk to Dr. Jaqueline Ayala at [facility] whom he saw in 2nd opinion years ago to see if he has any other treatment options. Follow-up in 3 weeks. - Time Spent With Patient Time Spent with Patient (in minutes): 15
[2022-04-15] MEDS: Acetaminophen 325 MG TABLET 650 MG PO (09:04)
[2022-04-15] MEDS: diphenhydrAMINE HCL 25 MG TABLET PO (09:05)
[2022-04-15] MEDS: Famotidine/PF 20 MG/2 ML VIAL IVPUSH (09:05)
[2022-04-15] MEDS: dexAMETHasone sod phosphate/NS 12 MG/50 ML PIGGYBACK 200 MG IV (09:05)
[2022-04-15] MEDS: Fosaprepitant Dimeglumine 150 MG in 0.9 % Sodium Chloride 145 ML 300 MG IV (09:58)
[2022-04-15] MEDS: Heparin Sodium,Porcine Flush 500 UNIT/5 ML SYRINGE IVFLUSH (12:28)
--- NOTE | 2022-04-15 14:19 | MHC.HEMONC ---
Here for c3d1 taxotere/carboplatin and MD follow up. Labs drawn yesterday, ok to proceed today. Port accessed with good blood return. Premeds and chemotherapy tolerated well. Reports feeling well now but gets nausea/constipation and fatigue for the week following chemo. Pt aware of next appt.
--- NOTE | 2022-05-06 14:13 | MHC.HEMONC ---
Faxed notes to Dr Elly Ayala at [facility] who has seen pt in past to see if she had any therapies in mind for pt.
[2022-05-13 08:44] VITALS: BP 130/57; PULSE 89; RESP 17; TEMP 36.1; O2SAT 98; BMI 27.3
[2022-05-13] MEDS: Fosaprepitant Dimeglumine 150 MG in 0.9 % Sodium Chloride 145 ML 300 MG IV (09:33)
[2022-05-13] MEDS: Heparin Sodium,Porcine Flush 500 UNIT/5 ML SYRINGE IVFLUSH (09:35)
[2022-05-13] MEDS: Acetaminophen 325 MG TABLET 650 MG PO (09:36)
[2022-05-13] MEDS: diphenhydrAMINE HCL 25 MG TABLET PO (09:36)
[2022-05-13] MEDS: Famotidine/PF 20 MG/2 ML VIAL IVPUSH (09:36)
[2022-05-13] MEDS: dexAMETHasone sod phosphate/NS 12 MG/50 ML PIGGYBACK 200 MG IV (09:37)
--- NOTE | 2022-05-13 11:24 | PM.HEMONCPN ---
Medical Summary - Medical Summary Date of Service: 05/13/22 Chief complaint: Follow-up Medical Summary: DIAGNOSIS: Mr. Morgan was diagnosed with prostate cancer in 2006. THERAPY: 1. He underwent radical retropubic prostatectomy with bilateral pelvic lymphadenectomy on March 31, 2007. He was staged as a T3a [place]'s 4 + 3 prostate adenocarcinoma. 2. He underwent ERBT postoperatively in 2007 for a rising PSA. 3. He was diagnosed with metastatic disease, bony metastasis sometime in 2011 and has been on hormonal manipulation under the care of his urologist Dr. Oreilly. Repeat imaging: Restaging with a PET scan May 14, 2014 showed mild hypermetabolic activity in the right L2 pedicle SUV of 3.4, T11, T12 and T10 SUV of 5.28, and T5, T4 and T3 vertebrae with only residual sites of disease. No additional hypermetabolic activity in the skeleton, and no lymphadenopathy. Diffuse sclerotic lesions throughout cervical, dorsal, lumbar sacral spine, iliac bones and bilateral ribs consistent with old metastatic disease. PSA on May 02, 2014, 25.6 and total testosterone less than 1 ng/dL. 4. After oncology consultation in apr 2014, patient started Denosumab (Xgeva)120 mg subcu monthly, since June 02, 2014. 5. Because of rising PSA noted in July 2014 when it reggie 61, the patient was taken off Casodex. 6. The patient started Xtandi or enzalutamide at a dose of 160 mg once daily on October 14, 2014. 7. Started Xofigo (radium 223)dose of 55 KBq/ per kilo every 4 weeks for 6 doses on 04/05/16. 8. Received palliative radiotherapy to C2 vertebral body at [facility] in June 2017 because of increasing uptake on PET scan worrisome for metastasis. 9. He started zytiga Jul 2017 to Sep 2017. Discontinued for rising PSA. 10. He then received 6 cycles Taxotere from 10/25/17 to January 2018. MSI status on tumor, showed preserved expression of DNA mismatch repair proteins indicating lack of microsatellite instability. Patient?s genetic test result , extended my Risk genetic panel testing was negative. 11. Ketoconazole for 1 month apr/2017. 12. Was seen at [facility] by Dr. Jaqueline Ayala for second opinion as well as consideration of clinical trials, was recommended clinical trial with olaparib +/- Cederinib. If he decides against trial, options would be to reconsider Zytiga, chemotherapy with Cabazitaxel +/- Carboplatinum or Apalutamide. 13. Was on Apalutamide 240 mg once a day for about 3 months. Rising PSA. 14. Switched to Zytiga 1000 mg once a day with prednisone 5 mg b.i.d. from end of December 2018. 15. Discontinued 03/14/2019 because of rising PSA. 16. Started Cabazitaxel March 2019. Treated for Legionella pneumonia after cycle 1 17. Switched to Xtandi in September 2020 18. Started back on docetaxel but added carboplatin since 05/19/2021 because of progressive disease. Olaparib was not approved by insurance carrier. BRCA mutation is negative, Homologous recombination repair gene mutation to be performed if possible. He underwent iliac crest biopsy at the site of bony lesion, however, this was negative for any malignant cells. Interval History Interval history: Patient is here in follow-up and scheduled treatment. He is doing okay. He noticed increased arthritic pain in his hands, some neuropathy on the of the toes and mild lower back pain. The pain in his back is only intermittent and not disabling. He denies any difficulty with urination or moving his bowels. No other side effects such as nausea, diarrhea, loss of appetite or weight loss. He denies fever or chills. Review of Systems - Constitutional Reports as per HPI, Reports no additional constitutional complaints - Cardiovascular Reports no additional cardiovascular complaints - Respiratory Reports no additional respiratory complaints - Neurologic Reports no additional neurologic complaints, Denies headache(s) [facility] Medical History: Medical History (Last Reviewed 03/18/22 @ 09:47 by Jama Gipson RN) Acquired hypothyroidism Ascending aorta dilatation COVID-19 vaccine series completed Diabetes mellitus Family history of anesthesia complication GERD without esophagitis History of chemotherapy Legionella pneumonia Non-rheumatic aortic regurgitation Overweight (BMI 25.0-29.9) Port-A-Cath in place Primary osteoarthritis of right knee 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 Mother No problems noted. Surgical History: Surgical History (Last Reviewed 03/31/22 @ 09:35 by Renetta Garces) H/O colonoscopy History of appendectomy History of left inguinal hernia repair Onset Date: ~02/2011 History of prostatectomy Onset Date: ~03/31/07 History of shoulder surgery History of total right knee replacement Social History: Social History (Last Reviewed 03/31/22 @ 09:35 by Renetta Garces) Living Situation History: Household Members: Significant Other Housing: House Are you a primary healthcare consulting manager to a significant other at home: Yes Are you a primary healthcare consulting manager to a significant other at home comment: has Alzheimers and is bedridden Do you presently have visiting nurse or other home services: Yes Tobacco History: Patient Tobacco Use Status: Former Tobacco user Tobacco use type: Cigarette Smoke Quit Date: age 32 Second Hand Smoke Exposure: Yes Advance Directives: Advance Directives Date on File: 02/15/10 Occupation Assessmet: service: No Current occupational status: retired Oncology Screenings - ECOG Performance Status ECOG Performance Status: 1 Home Medications and Allergies Current Medications: Current Medications Acetaminophen (Acetaminophen 325 Mg Tablet) 650 mg PO ONCE RAIMUNDO Stop: 05/13/22 23:59 Last Admin: 05/13/22 09:36 Dose: 650 mg Denosumab (Denosumab 120 Mg/1.7 Ml Vial) 120 mg SUBCUT ONCE RAIMUNDO Stop: 05/13/22 23:59 Diphenhydramine HCl (Diphenhydramine Hcl 25 Mg Tablet) 25 mg PO ONCE RAIMUNDO Stop: 05/13/22 23:59 Last Admin: 05/13/22 09:36 Dose: 25 mg Famotidine (Famotidine/Pf 20 Mg/2 Ml Vial) 20 mg IVPUSH ONCE RAIMUNDO Stop: 05/13/22 23:59 Last Admin: 05/13/22 09:36 Dose: 20 mg Heparin Sodium (Porcine) (Heparin Sodium,Porcine Flush 500 Unit/5 Ml Syringe) 500 unit IVFLUSH ONCE RAIMUNDO Stop: 05/13/22 23:59 Last Admin: 05/13/22 09:35 Dose: 500 unit Dexamethasone Sodium Phosphate (Decadron) 12 mg in 50 mls @ 200 mls/hr IV ONCE RAIMUNDO Stop: 05/13/22 23:59 Last Infusion: 05/13/22 10:21 Dose: Infused Ondansetron HCl (Zofran) 16 mg in 50 mls @ 200 mls/hr IV ONCE RAIMUNDO Stop: 05/13/22 23:59 Last Infusion: 05/13/22 10:21 Dose: Infused Fosaprepitant 150 mg/ Sodium (Chloride) 150 mls @ 300 mls/hr IV ONCE RAIMUNDO Stop: 05/13/22 23:59 Last Infusion: 05/13/22 09:48 Dose: Infused Carboplatin 400 mg/ Sodium (Chloride) 290 mls @ 580 mls/hr IV ONCE RAIMUNDO Stop: 05/13/22 23:59 Docetaxel 120 mg/ Sodium (Chloride) 256 mls @ 256 mls/hr IV ONCE RAIMUNDO Stop: 05/13/22 23:59 Last Admin: 05/13/22 10:50 Dose: 256 mls/hr Home Medications Medication Instructions Recorded Confirmed Type denosumab 120 mg/1.7 mL (70 mg/mL) 120 mg subcut Q4W 07/28/20 03/31/22 History subcutaneous solution (Xgeva) vit C 250 mg-vit E 90 mg-zinc 40 1 tab PO QAM 12/08/21 03/31/22 History mg-copper 1 [id number] capsule (PreserVision AREDS-2) celecoxib 200 mg capsule 200 mg PO BID 02/02/22 03/31/22 History ondansetron HCl 4 mg tablet 1 tab PO Q6H PRN nausea 02/02/22 03/31/22 History dexamethasone 4 mg tablet 4 mg PO BID 02/18/22 03/31/22 History famotidine 20 mg tablet 20 mg PO DAILY 03/31/22 03/31/22 History leuprolide acetate (6 month) 45 mg 45 mg subcut [id number] 03/31/22 03/31/22 History (6 month) subcutaneous syringe ([facility]) Allergies Allergy/AdvReac Type Severity Reaction Status Date / Time No Known Allergies Allergy Verified 03/31/22 09:36 Exam Vital signs: Vital Signs Temp 97.0 F 05/13/22 08:44 Pulse 89 05/13/22 08:44 Resp 17 05/13/22 08:44 BP 130/57 L 05/13/22 08:44 Pulse Ox 98 05/13/22 08:44 O2 Del Method 05/13/22 08:44 Intake & Output 05/12/22 05/13/22 05/13/22 18:59 06:59 18:59 Intake Total 250 / 250 Balance 250 / 250 Intake: Intake, IV Amount 250 / 250 Fosaprepitant Dimeglumine 150 150 / 150 mg In 0.9 % Sodium Chloride 145 ml @ 300 mls/hr IV ONCE RAIMUNDO Rx #:[id number] Ondansetron HCL/NS 16 mg In 50 50 / 50 ml @ 200 mls/hr IV ONCE RAIMUNDO Rx# :[id number] dexAMETHasone sod phosphate/NS 50 / 50 12 mg In 50 ml @ 200 mls/hr IV ONCE RAIMUNDO Rx#:[id number] Other: Weight 84.1 kg Weight in Grams 66970 Weight 84.1 kg BMI result Body Mass Index 27.3 - Constitutional Present: no acute distress - Routine HEENT Exam Head: Present: normal inspection - Routine Neck Exam Present: full ROM. Absent: lymphadenopathy - Routine Respiratory Exam Present: CTAB - Routine Cardiovascular Exam Cardiovascular: Present: RRR, S1, S2 - Routine Abdominal Exam Present: soft - Routine Extremities Exam Present: full ROM, joint swelling. Absent: calf tenderness, pedal edema, tenderness - Routine Skin Exam Present: intact. Absent: cyanosis, erythema Data - Labs CBC & Chem 7: 01/03/22 10:36 01/03/22 10:36 - Imaging Radiologist's impression: ITS Impressions Chest X-Ray 07/28/20 11:50 IMPRESSION: No evidence for acute disease in the chest. Sclerotic bone disease similar to previous exams. EXAMINATION: Right shoulder x-ray CLINICAL INFORMATION: Pain COMPARISON: None. TECHNIQUE: 4 views of the right shoulder FINDINGS: Bone alignment is normal. No fracture or dislocation is seen. The glenohumeral joint is normal. There is arthritis at the acromioclavicular joint. There is evidence of diffuse sclerotic bone disease. Soft tissues are unremarkable. IMPRESSION: Sclerotic bone disease. Arthritis at the acromioclavicular joint. EXAMINATION: Right knee x-ray CLINICAL INFORMATION: Pain COMPARISON: None. TECHNIQUE: 4 views right knee FINDINGS: Bone alignment is normal. No fracture or dislocation is seen. The joint spaces are normal. There is no joint effusion. IMPRESSION: Unremarkable exam. Knee X-Ray 07/28/20 11:50 IMPRESSION: No evidence for acute disease in the chest. Sclerotic bone disease similar to previous exams. EXAMINATION: Right shoulder x-ray CLINICAL INFORMATION: Pain COMPARISON: None. TECHNIQUE: 4 views of the right shoulder FINDINGS: Bone alignment is normal. No fracture or dislocation is seen. The glenohumeral joint is normal. There is arthritis at the acromioclavicular joint. There is evidence of diffuse sclerotic bone disease. Soft tissues are unremarkable. IMPRESSION: Sclerotic bone disease. Arthritis at the acromioclavicular joint. EXAMINATION: Right knee x-ray CLINICAL INFORMATION: Pain COMPARISON: None. TECHNIQUE: 4 views right knee FINDINGS: Bone alignment is normal. No fracture or dislocation is seen. The joint spaces are normal. There is no joint effusion. IMPRESSION: Unremarkable exam. Shoulder X-Ray 07/28/20 11:50 IMPRESSION: No evidence for acute disease in the chest. Sclerotic bone disease similar to previous exams. EXAMINATION: Right shoulder x-ray CLINICAL INFORMATION: Pain COMPARISON: None. TECHNIQUE: 4 views of the right shoulder FINDINGS: Bone alignment is normal. No fracture or dislocation is seen. The glenohumeral joint is normal. There is arthritis at the acromioclavicular joint. There is evidence of diffuse sclerotic bone disease. Soft tissues are unremarkable. IMPRESSION: Sclerotic bone disease. Arthritis at the acromioclavicular joint. EXAMINATION: Right knee x-ray CLINICAL INFORMATION: Pain COMPARISON: None. TECHNIQUE: 4 views right knee FINDINGS: Bone alignment is normal. No fracture or dislocation is seen. The joint spaces are normal. There is no joint effusion. IMPRESSION: Unremarkable exam. Assessment and Plan Patient Active problem list reviewed?: Yes (1) Prostate cancer metastatic to bone Status: Chronic Assessment and plan: 1. This is a 81 year-old male with metastatic Prostate Cancer, Bone Metastases diagnosed in 2012. pMSI. BRCA 10/05 negative. He is on LHRH agonist q 6 months. On monthly denosumab. He has been on chemotherapy and different hormonal therapies from July 2014. Patient resumed docetaxel with carboplatin in January 2022 after a 5 month hiatus during which he underwent right knee replacement. He will continue with Lupron and monthly denosumab. His last PSA was 91 NG/mL in March 2022. PSMA PET-CT was performed 08/04/2021, he has PSMA avid disease besides extensive bone metastasis he has supraclavicular and chest lymph nodes. He was hoping to receive Kirsten labeled PSMA-617 for PSMA positive tumors/metastasis, unfortunately it was not commercially available although FDA approved. He was going a to [facility] where he was initially felt to be a candidate to receive this treatment. Subsequently he was told about bone marrow suppression as he received previous radium treatment. He was recommended either enrollment into a clinical trial or resuming docetaxel/carboplatin which he was on until late 2020. Because of toxicity and side effects we discussed reducing doses to 75-80% and also increasing interval between treatments to every 4 weeks rather than 3 weeks. Although his performance status has declined in the last year, he continues to be active and takes care of his who has severe dementia. I have reached out to Dr. Jaqueline Ayala at [facility] whom he saw in 2nd opinion years ago to see if he has any other treatment options. 2. He has mild pain in his lower back. Have advised him to call if this worsens. He may need palliative radiation therapy if it is secondary to progressive bone metastasis. Follow-up in 3 weeks. - Time Spent With Patient Time Spent with Patient (in minutes): 15
--- NOTE | 2022-05-13 14:04 | MHC.HEMONC ---
Pt was here for C4D1 Docetaxel/Carbo (28D cycle), monthly Xgeva inj, and Onc f/u appt. Pt's VSS, weight stable, reported feeling well today, asymptomatic. Pt's labs were prev drawn at home, reviewed by Dr. Gonzalez, who was in to meet w/ pt. Carbo and Docetaxel doses were still ordered at 80%, per Dr. Gonzalez. Nurse confirmed pt needs no PA for Denosumab, Docetaxel, Carbo, or Emend. Nurse admin Denosumab/Xgeva 120 mg SC to pt's LUE, which was tolerated well. Nurse accessed pt's R chest port w/ 20g, 3/4 leyva needle, found positive blood return, admin pre-meds, Tylenol and benadryl PO, and Dexamethasone, Zofran, Pepcid, and Emend IV. Docetaxel and Carboplatin were admin via port a/o, pt tolerated well. Pt's port was flushed w/ NS and heparin 500 units, then de-accessed. Pt verbalized understanding to take Dexamethasone 4mg BID on days 2 and 3. Pt was given d/c packet w/ C5D1 confirmed on 06/10/22, along w/ his monthly Denosumab and next Onc f/u, still sched to have labs drawn at home on 06/09/22.
--- NOTE | 2022-05-24 09:02 | MHC.HEMONC ---
Pt has Telehealth with Dr Jaqueline Ayala from [facility] on June 15 at 4:15 pm per pt.
--- NOTE | 2022-06-10 08:56 | PM.HEMONCPN ---
Medical Summary - Medical Summary Date of Service: 06/10/22 Chief complaint: Follow-up Medical Summary: DIAGNOSIS: Mr. Morgan was diagnosed with prostate cancer in 2006. THERAPY: 1. He underwent radical retropubic prostatectomy with bilateral pelvic lymphadenectomy on March 31, 2007. He was staged as a T3a [place]'s 4 + 3 prostate adenocarcinoma. 2. He underwent ERBT postoperatively in 2007 for a rising PSA. 3. He was diagnosed with metastatic disease, bony metastasis sometime in 2011 and has been on hormonal manipulation under the care of his urologist Dr. Oreilly. Repeat imaging: Restaging with a PET scan May 14, 2014 showed mild hypermetabolic activity in the right L2 pedicle SUV of 3.4, T11, T12 and T10 SUV of 5.28, and T5, T4 and T3 vertebrae with only residual sites of disease. No additional hypermetabolic activity in the skeleton, and no lymphadenopathy. Diffuse sclerotic lesions throughout cervical, dorsal, lumbar sacral spine, iliac bones and bilateral ribs consistent with old metastatic disease. PSA on May 02, 2014, 25.6 and total testosterone less than 1 ng/dL. 4. After oncology consultation in apr 2014, patient started Denosumab (Xgeva)120 mg subcu monthly, since June 02, 2014. 5. Because of rising PSA noted in July 2014 when it reggie 61, the patient was taken off Casodex. 6. The patient started Xtandi or enzalutamide at a dose of 160 mg once daily on October 14, 2014. 7. Started Xofigo (radium 223)dose of 55 KBq/ per kilo every 4 weeks for 6 doses on 04/05/16. 8. Received palliative radiotherapy to C2 vertebral body at [facility] in June 2017 because of increasing uptake on PET scan worrisome for metastasis. 9. He started zytiga Jul 2017 to Sep 2017. Discontinued for rising PSA. 10. He then received 6 cycles Taxotere from 10/25/17 to January 2018. MSI status on tumor, showed preserved expression of DNA mismatch repair proteins indicating lack of microsatellite instability. Patient?s genetic test result , extended my Risk genetic panel testing was negative. 11. Ketoconazole for 1 month apr/2017. 12. Was seen at [facility] by Dr. Jaqueline Ayala for second opinion as well as consideration of clinical trials, was recommended clinical trial with olaparib +/- Cederinib. If he decides against trial, options would be to reconsider Zytiga, chemotherapy with Cabazitaxel +/- Carboplatinum or Apalutamide. 13. Was on Apalutamide 240 mg once a day for about 3 months. Rising PSA. 14. Switched to Zytiga 1000 mg once a day with prednisone 5 mg b.i.d. from end of December 2018. 15. Discontinued 03/14/2019 because of rising PSA. 16. Started Cabazitaxel March 2019. Treated for Legionella pneumonia after cycle 1 17. Switched to Xtandi in September 2020 18. Started back on docetaxel but added carboplatin since 05/19/2021 because of progressive disease. Olaparib was not approved by insurance carrier. BRCA mutation is negative, Homologous recombination repair gene mutation to be performed if possible. He underwent iliac crest biopsy at the site of bony lesion, however, this was negative for any malignant cells. Interval History Interval history: Patient is here in follow-up and scheduled treatment. He is doing about the same. He has aches and pains in his back and extremities but he is not taking any pain medication. He is able to carry on usual activities but with more rest periods required during the day. He reports no side effects to the medications/chemotherapy. He has an appointment in [place], [facility] visit for next week. No other side effects such as nausea, diarrhea, loss of appetite or weight loss. He denies fever or chills. Review of Systems - Constitutional Reports as per HPI, Reports no additional constitutional complaints - Cardiovascular Reports no additional cardiovascular complaints - Respiratory Reports no additional respiratory complaints - Gastrointestinal Reports no additional gastrointestinal complaints - Neurologic Reports no additional neurologic complaints, Denies headache(s) [facility] Medical History: Medical History (Last Reviewed 05/13/22 @ 14:10 by Jama Gipson RN) Acquired hypothyroidism Ascending aorta dilatation COVID-19 vaccine series completed Diabetes mellitus Family history of anesthesia complication GERD without esophagitis History of chemotherapy Legionella pneumonia Non-rheumatic aortic regurgitation Overweight (BMI 25.0-29.9) Port-A-Cath in place Primary osteoarthritis of right knee 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 Mother No problems noted. Surgical History: Surgical History (Last Updated 05/25/22 @ 10:52 by JOSE LUIS Jain) H/O colonoscopy History of appendectomy History of left inguinal hernia repair Onset Date: ~02/2011 History of prostatectomy Onset Date: ~03/31/07 History of shoulder surgery History of total right knee replacement Social History: Social History (Last Reviewed 05/25/22 @ 10:51 by JOSE LUIS Jain) Living Situation History: Household Members: Significant Other Housing: House Are you a primary acute care certified nursing assistant to a significant other at home: Yes Are you a primary acute care certified nursing assistant to a significant other at home comment: has Alzheimers and is bedridden Do you presently have visiting nurse or other home services: Yes Tobacco History: Patient Tobacco Use Status: Former Tobacco user Tobacco use type: Cigarette Smoke Quit Date: age 32 Second Hand Smoke Exposure: Yes Advance Directives: Advance Directives Date on File: 02/15/10 Occupation Assessmet: service: No Current occupational status: retired Oncology Screenings - ECOG Performance Status ECOG Performance Status: 1 Home Medications and Allergies Current Medications: Current Medications Acetaminophen (Acetaminophen 325 Mg Tablet) 650 mg PO ONCE RAIMUNDO Stop: 06/10/22 23:59 Diphenhydramine HCl (Diphenhydramine Hcl 25 Mg Tablet) 25 mg PO ONCE RAIMUNDO Stop: 06/10/22 23:59 Famotidine (Famotidine/Pf 20 Mg/2 Ml Vial) 20 mg IVPUSH ONCE RAIMUNDO Stop: 06/10/22 23:59 Heparin Sodium (Porcine) (Heparin Sodium,Porcine Flush 500 Unit/5 Ml Syringe) 500 unit IVFLUSH ONCE RAIMUNDO Stop: 06/10/22 23:59 Dexamethasone Sodium Phosphate (Decadron) 12 mg in 50 mls @ 200 mls/hr IV ONCE RAIMUNDO Stop: 06/10/22 23:59 Fosaprepitant 150 mg/ Sodium (Chloride) 150 mls @ 300 mls/hr IV ONCE RAIMUNDO Stop: 06/10/22 23:59 Home Medications Medication Instructions Recorded Confirmed Type denosumab 120 mg/1.7 mL (70 mg/mL) 120 mg subcut Q4W 07/28/20 05/25/22 History subcutaneous solution (Xgeva) vit C 250 mg-vit E 90 mg-zinc 40 1 tab PO QAM 12/08/21 05/25/22 History mg-copper 1 [id number] capsule (PreserVision AREDS-2) ondansetron HCl 4 mg tablet 1 tab PO Q6H PRN nausea 02/02/22 05/25/22 History dexamethasone 4 mg tablet 4 mg PO BID 02/18/22 05/25/22 History famotidine 20 mg tablet 20 mg PO DAILY 03/31/22 05/25/22 History leuprolide acetate (6 month) 45 mg 45 mg subcut [id number] 03/31/22 05/25/22 History (6 month) subcutaneous syringe ([employer]) Allergies Allergy/AdvReac Type Severity Reaction Status Date / Time No Known Allergies Allergy Verified 05/25/22 10:51 Exam Vital signs: Vital Signs Temp 97.0 F 05/13/22 08:44 Pulse 89 05/13/22 08:44 Resp 17 05/13/22 08:44 BP 130/57 L 05/13/22 08:44 Pulse Ox 98 05/13/22 08:44 O2 Del Method 05/13/22 08:44 Weight 84.1 kg BMI result Body Mass Index 27.3 - Constitutional Present: no acute distress - Routine HEENT Exam Head: Present: normal inspection - Routine Neck Exam Present: full ROM. Absent: lymphadenopathy - Routine Respiratory Exam Present: CTAB - Routine Cardiovascular Exam Cardiovascular: Present: RRR, S1, S2 - Routine Abdominal Exam Present: soft - Routine Extremities Exam Present: full ROM, joint swelling. Absent: calf tenderness, pedal edema, tenderness - Routine Skin Exam Present: intact. Absent: cyanosis, erythema Data - Labs CBC & Chem 7: 01/03/22 10:36 01/03/22 10:36 - Imaging Radiologist's impression: ITS Impressions Chest X-Ray 07/28/20 11:50 IMPRESSION: No evidence for acute disease in the chest. Sclerotic bone disease similar to previous exams. EXAMINATION: Right shoulder x-ray CLINICAL INFORMATION: Pain COMPARISON: None. TECHNIQUE: 4 views of the right shoulder FINDINGS: Bone alignment is normal. No fracture or dislocation is seen. The glenohumeral joint is normal. There is arthritis at the acromioclavicular joint. There is evidence of diffuse sclerotic bone disease. Soft tissues are unremarkable. IMPRESSION: Sclerotic bone disease. Arthritis at the acromioclavicular joint. EXAMINATION: Right knee x-ray CLINICAL INFORMATION: Pain COMPARISON: None. TECHNIQUE: 4 views right knee FINDINGS: Bone alignment is normal. No fracture or dislocation is seen. The joint spaces are normal. There is no joint effusion. IMPRESSION: Unremarkable exam. Knee X-Ray 07/28/20 11:50 IMPRESSION: No evidence for acute disease in the chest. Sclerotic bone disease similar to previous exams. EXAMINATION: Right shoulder x-ray CLINICAL INFORMATION: Pain COMPARISON: None. TECHNIQUE: 4 views of the right shoulder FINDINGS: Bone alignment is normal. No fracture or dislocation is seen. The glenohumeral joint is normal. There is arthritis at the acromioclavicular joint. There is evidence of diffuse sclerotic bone disease. Soft tissues are unremarkable. IMPRESSION: Sclerotic bone disease. Arthritis at the acromioclavicular joint. EXAMINATION: Right knee x-ray CLINICAL INFORMATION: Pain COMPARISON: None. TECHNIQUE: 4 views right knee FINDINGS: Bone alignment is normal. No fracture or dislocation is seen. The joint spaces are normal. There is no joint effusion. IMPRESSION: Unremarkable exam. Shoulder X-Ray 07/28/20 11:50 IMPRESSION: No evidence for acute disease in the chest. Sclerotic bone disease similar to previous exams. EXAMINATION: Right shoulder x-ray CLINICAL INFORMATION: Pain COMPARISON: None. TECHNIQUE: 4 views of the right shoulder FINDINGS: Bone alignment is normal. No fracture or dislocation is seen. The glenohumeral joint is normal. There is arthritis at the acromioclavicular joint. There is evidence of diffuse sclerotic bone disease. Soft tissues are unremarkable. IMPRESSION: Sclerotic bone disease. Arthritis at the acromioclavicular joint. EXAMINATION: Right knee x-ray CLINICAL INFORMATION: Pain COMPARISON: None. TECHNIQUE: 4 views right knee FINDINGS: Bone alignment is normal. No fracture or dislocation is seen. The joint spaces are normal. There is no joint effusion. IMPRESSION: Unremarkable exam. Assessment and Plan Patient Active problem list reviewed?: Yes (1) Prostate cancer metastatic to bone Status: Chronic Assessment and plan: 1. This is a 81 year-old male with metastatic Prostate Cancer, Bone Metastases diagnosed in 2012. pMSI. BRCA 10/05 negative. He is on LHRH agonist q 6 months. On monthly denosumab. He has been on chemotherapy and different hormonal therapies from July 2014. Patient resumed docetaxel with carboplatin in January 2022 after a 5 month hiatus during which he underwent right knee replacement. He will continue with Lupron and monthly denosumab. His last PSA was 91 NG/mL in March 2022. PSMA PET-CT was performed 08/04/2021, he has PSMA avid disease besides extensive bone metastasis he has supraclavicular and chest lymph nodes. He was hoping to receive Kirsten labeled PSMA-617 for PSMA positive tumors/metastasis, unfortunately it was not commercially available although FDA approved. He was going a to [facility] where he was initially felt to be a candidate to receive this treatment. Subsequently he was told about bone marrow suppression as he received previous radium treatment. He was recommended either enrollment into a clinical trial or resuming docetaxel/carboplatin which he was on until late 2020. Because of toxicity and side effects we discussed reducing doses to 75-80% and also increasing interval between treatments to every 4 weeks rather than 3 weeks. Although his performance status has declined in the last year, he continues to be active and takes care of his who has severe dementia. I have reached out to Dr. Jaqueline Ayala at [facility] whom he saw in 2nd opinion years ago to see if he has any other treatment options. Tele visit appointment next week. 2. He has mild pain in his lower back. Have advised him to call if this worsens. He may need palliative radiation therapy if it is secondary to progressive bone metastasis. Labs look good, proceed with treatment today. Follow-up in 4 weeks. - Time Spent With Patient Time Spent with Patient (in minutes): 10
[2022-06-10 09:06] VITALS: BP 130/66; PULSE 89; RESP 18; TEMP 36.3; O2SAT 99; BMI 27.6
[2022-06-10] MEDS: Acetaminophen 325 MG TABLET 650 MG PO (09:39)
[2022-06-10] MEDS: diphenhydrAMINE HCL 25 MG TABLET PO (09:39)
[2022-06-10] MEDS: Famotidine/PF 20 MG/2 ML VIAL IVPUSH (09:40)
[2022-06-10] MEDS: Fosaprepitant Dimeglumine 150 MG in 0.9 % Sodium Chloride 145 ML 300 MG IV (09:41)
[2022-06-10] MEDS: Heparin Sodium,Porcine Flush 500 UNIT/5 ML SYRINGE IVFLUSH (09:41)
[2022-06-10] MEDS: dexAMETHasone sod phosphate/NS 12 MG/50 ML PIGGYBACK 200 MG IV (09:41)
--- NOTE | 2022-06-10 13:36 | MHC.HEMONC ---
Addendum entered by Jama Gipson RN 06/10/22 15:33: Dr. Gonzalez ordered add-on for PSA, but pt had his labs drawn at home the previous day. Nursing confirmed w/ lab that this was possible and PSA was processed. Dr. Gonzalez was informed. Original Note: Pt came in for sched C5D1 Docetaxel/Carbo (28D cycle), monthly Xgeva inj, and Onc f/u appt. Nurse confirmed pt needs no PA for Denosumab, Docetaxel, Carbo, or Emend. He had his labs drawn at home the prev day, reviewed by Dr. Gonzalez. Pt's VSS, weight stable, reported feeling more fatigued today, also apparently has a telehealth appt w/ provider at [facility] next week. Carbo dose was reduced at 87% and Docetaxel dose at 80%, per Dr. Gonzalez. Dr. Gonzalez was in to meet w/ pt for Onc f/u appt. Nurse accessed pt's R chest port w/ 20g, 3/4 leyva needle, found positive blood return, admin pre-meds, Tylenol and Benadryl PO, and Dexamethasone, Zofran, Pepcid, and Emend IV. Docetaxel and Carboplatin were admin via port a/o, pt tolerated well. Pt's port was flushed w/ NS and heparin 500 units, then de-accessed. Nurse admin Denosumab/Xgeva 120 mg SC to pt's RUE, which was well-tolerated. Pt stated he knows to take Dexamethasone 4mg BID on days 2 and 3. D/C packet was given confirming C6D1 on 07/08/22, as well as his monthly Denosumab and next Onc f/u, will still have his labs drawn at home the day before. Nurse confirmed w/ pharmacist Desirae that today's cycle would be considered the 5th cycle, as there was some confusion w/ the tx plan notifying it as the 11th cycle. Apparently, the tx plan continued counting when pt restarted the same regimen, as he had previously completed 6 cycles before taking a 4 month break. Since the regimen indicates the regimen is for 4-6 cycles, Desirae said that when he restarted his chemo that would be considered the 1st cycle. Nurse checked w/ Dr. Gonzalez about whether pt's next cycle, which would be his 6th of this set, would be his last, and she said it will depend upon what is determined at pt's telehealth appt w/ Ebony Elder next week.
--- NOTE | 2022-07-06 11:27 | MHC.HEMONC ---
I called [facility] to request office note from telehealth on 06/15/22 be faxed to us. Pt was called and he did say that there isn't anything he will be doing with [facility] at this time.
[2022-07-08 09:04] VITALS: BP 114/66; PULSE 95; TEMP 35.5; O2SAT 98
[2022-07-08 09:05] VITALS: BMI 27.7
[2022-07-08] MEDS: diphenhydrAMINE HCL 25 MG CAPSULE PO (09:13)
[2022-07-08] MEDS: Acetaminophen 325 MG TABLET 650 MG PO (09:13)
[2022-07-08] MEDS: dexAMETHasone sod phosphate/NS 12 MG/50 ML PIGGYBACK 200 MG IV (09:14)
[2022-07-08] MEDS: Fosaprepitant Dimeglumine 150 MG in 0.9 % Sodium Chloride 145 ML 300 MG IV (10:48)
[2022-07-08] MEDS: Heparin Sodium,Porcine Flush 500 UNIT/5 ML SYRINGE IVFLUSH (13:06)
--- NOTE | 2022-07-08 14:10 | MHC.HEMONC ---
Here for c6d1 docetaxel/carboplatin/denosumab. Labs drawn yesterday, reviewed. Port accessed with good blood return. Premedications and chemo tolerated well. He will have cataract surgery on 08/12/22, one week after his next chemo. OKed by Dr Basurto. Pt aware of next appointment.
--- NOTE | 2022-07-19 10:30 | MHC.HEMONCMA ---
patient called triage line to ask nurse about symptoms he is having after chemo this week. He is having right ear deafness and dizzy on standing up. I checked with Amber LUCIO who looked in drug book for symptoms of the two meds he is taking for chemo, none described hearing loss, she advised patient to see PCP this week to see if anything else is going on. Patient informed me he has appt for 07/22/22 with PCP and will have notes sent to .
--- NOTE | 2022-07-28 16:45 | MHC.HEMONC ---
Nixon called triage line to ask if its ok to take high dose prednisone for ear infection. Pt saw ENT and is getting steroid injections in ear and is also on high dose taper. Prednisone 60mg x 9 days, 50mg x 10, [id number], [id number], 20mgx1,10mgx1 then stop. Discussed with Dr Basurto. Ok to take prednisone taper. pt aware.
--- NOTE | 2022-07-29 15:52 | MHC.HEMONC ---
Pt to change from current regimen to Cabazitaxel (he has had in past) due to hearing loss and noted received from ENT. I called pt and advised him. He is scheduled 08/05. Essie has details for PA. I informed Pharmacy.
--- NOTE | 2022-08-02 10:51 | HO.HEMONCPA ---
NO PA REQUIRED FOR EMEND, CABAzitaxel, & NEULASTA. DRUGS COVERED UNDER MEDICARE PART B BENEFITS.
[2022-08-05 08:39] VITALS: BP 142/82; PULSE 81; RESP 18; TEMP 36.1; O2SAT 97; BMI 28.3
[2022-08-05] MEDS: Heparin Sodium,Porcine Flush 500 UNIT/5 ML SYRINGE IVFLUSH (09:21)
--- NOTE | 2022-08-05 10:02 | P.PNHO-ONC_ITS ---
Medical Summary - Medical Summary Date of Service: 08/05/22 Chief complaint: Follow-up Medical Summary: DIAGNOSIS: Mr. Morgan was diagnosed with prostate cancer in 2006. THERAPY: 1. He underwent radical retropubic prostatectomy with bilateral pelvic lymphadenectomy on March 31, 2007. He was staged as a T3a [place]'s 4 + 3 prostate adenocarcinoma. 2. He underwent ERBT postoperatively in 2007 for a rising PSA. 3. He was diagnosed with metastatic disease, bony metastasis sometime in 2011 and has been on hormonal manipulation under the care of his urologist Dr. Re mckinney. Repeat imaging: Restaging with a PET scan May 14, 2014 showed mild hypermetabolic activity in the right L2 pedicle SUV of 3.4, T11, T12 and T10 SUV of 5.28, and T5, T4 and T3 vertebrae with only residual sites of disease. No additional hypermetabolic activity in the skeleton, and no lymphadenopathy. Diffuse sclerotic lesions throughout cervical, dorsal, lumbar sacral spine, iliac bones and bilateral ribs consistent with old metastatic disease. PSA on May 02, 2014, 25.6 and total testosterone less than 1 ng/dL. 4. After oncology consultation in apr 2014, patient started Denosumab (Xgeva)120 mg subcu monthly, since June 02, 2014. 5. Because of rising PSA noted in July 2014 when it reggie 61, the patient was taken off Casodex. 6. The patient started Xtandi or enzalutamide at a dose of 160 mg once daily on October 14, 2014. 7. Started Xofigo (radium 223)dose of 55 KBq/ per kilo every 4 weeks for 6 doses on 04/05/16. 8. Received palliative radiotherapy to C2 vertebral body at [facility] in June 2017 because of increasing uptake on PET scan worrisome for metastasis. 9. He started zytiga Jul 2017 to Sep 2017. Discontinued for rising PSA. 10. He then received 6 cycles Taxotere from 10/25/17 to January 2018. MSI status on tumor, showed preserved expression of DNA mismatch repair proteins indicating lack of microsatellite instability. Patient?s genetic test result , extended my Risk genetic panel testing was negative. 11. Ketoconazole for 1 month apr/2017. 12. Was seen at [facility] by Dr. Jaqueline Ayala for second opinion as well as consideration of clinical trials, was recommended clinical trial with olaparib +/- Cederinib. If he decides against trial, options would be to reconsider Zytiga, chemotherapy with Cabazitaxel +/- Carboplatinum or Apalutamide. 13. Was on Apalutamide 240 mg once a day for about 3 months. Rising PSA. 14. Switched to Zytiga 1000 mg once a day with prednisone 5 mg b.i.d. from end of December 2018. 15. Discontinued 03/14/2019 because of rising PSA. 16. Started Cabazitaxel March 2019. Treated for Legionella pneumonia after cycle 1 17. Switched to Xtandi in September 2020 18. Started back on docetaxel but added carboplatin since 05/19/2021 because of progressive disease. Olaparib was not approved by insurance carrier. BRCA mutation is negative, Homologous recombination repair gene mutation to be performed if possible. He underwent iliac crest biopsy at the site of bony lesion, however, this was negative for any malignant cells. Interval History Interval history: Patient is here in follow-up and scheduled treatment. He was diagnosed with loss of hearing in his right ear. He has had chronic tinnitus for 2 years but there hearing loss started about a month ago. He has seen by ENT. He is on high doses of steroids. He is scheduled to undergo MRI of brain. He denies any headache or dizziness. He is also scheduled to undergo bilateral Cataract surgery and colonoscopy in August. 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 Mother No problems noted. Surgical History: Surgical History (Last Reviewed 07/24/22 @ 07:58 by Héctor Perla MD) H/O colonoscopy History of appendectomy History of left inguinal hernia repair Onset Date: ~02/2011 History of prostatectomy Onset Date: ~03/31/07 History of shoulder surgery History of total right knee replacement Social History: Social History (Last Reviewed 07/24/22 @ 07:58 by Héctor Perla MD) Living Situation History: Household Members: Significant Other Housing: House Are you a primary career development engineer to a significant other at home: Yes Are you a primary career development engineer to a significant other at home comment: has Alzheimers and is bedridden Do you presently have visiting nurse or other home services: Yes Tobacco History: Patient Tobacco Use Status: Former Tobacco user Tobacco use type: Cigarette Smoke Quit Date: age 32 Second Hand Smoke Exposure: Yes Advance Directives: Advance Directives Date on File: 02/15/10 Occupation Assessmet: service: No Current occupational status: retired Home Medications and Allergies Current Medications: Current Medications Acetaminophen (Acetaminophen 325 Mg Tablet) 650 mg PO ONCE RAIMUNDO Stop: 08/05/22 23:59 Denosumab (Denosumab 120 Mg/1.7 Ml Vial) 120 mg SUBCUT ONCE RAIMUNDO Stop: 08/05/22 23:59 Last Admin: 08/05/22 09:21 Dose: 120 mg Diphenhydramine HCl (Diphenhydramine Hcl 50 Mg/Ml Vial) 25 mg IVPUSH ONCE RAIMUNDO Stop: 08/05/22 23:59 Famotidine (Famotidine/Pf 20 Mg/2 Ml Vial) 20 mg IVPUSH ONCE RAIMUNDO Stop: 08/05/22 23:59 Heparin Sodium (Porcine) (Heparin Sodium,Porcine Flush 500 Unit/5 Ml Syringe) 500 unit IVFLUSH ONCE RAIMUNDO Stop: 08/05/22 23:59 Last Admin: 08/05/22 09:21 Dose: 500 unit Dexamethasone Sodium Phosphate (Decadron) 12 mg in 50 mls @ 200 mls/hr IV ONCE RAIMUNDO Stop: 08/05/22 23:59 Sodium Chloride (Ns) 500 mls @ 250 mls/hr IVCONT .Q2H RAIMUNDO Stop: 08/05/22 23:59 Ondansetron HCl (Ondansetron Odt 8 Mg Tab.Rapdis) 8 mg TRANSLINGU ONCE RAIMUNDO Stop: 08/05/22 23:59 Home Medications Medication Instructions Recorded Confirmed Type denosumab 120 mg/1.7 mL (70 mg/mL) 120 mg subcut Q4W 07/28/20 07/22/22 History subcutaneous solution (Xgeva) vit C 250 mg-vit E 90 mg-zinc 40 1 tab PO QAM 12/08/21 07/22/22 History mg-copper 1 [id number] capsule (PreserVision AREDS-2) ondansetron HCl 4 mg tablet 1 tab PO Q6H PRN nausea 02/02/22 07/22/22 History dexamethasone 4 mg tablet 4 mg PO BID 02/18/22 07/22/22 History famotidine 20 mg tablet 20 mg PO DAILY 03/31/22 07/22/22 History leuprolide acetate (6 month) 45 mg 45 mg subcut [id number] 03/31/22 07/22/22 History (6 month) subcutaneous syringe ([employer]) Allergies Allergy/AdvReac Type Severity Reaction Status Date / Time No Known Allergies Allergy Verified 07/22/22 10:04 Exam Vital signs: Vital Signs Temp 97.0 F 08/05/22 08:39 Pulse 81 08/05/22 08:39 Resp 18 08/05/22 08:39 BP 142/82 H 08/05/22 08:39 Pulse Ox 97 08/05/22 08:39 O2 Del Method 08/05/22 08:39 Intake & Output 08/04/22 08/05/22 08/05/22 18:59 06:59 18:59 Other: Weight 87 kg Weight in Grams 23830 Weight 87 kg BMI result Body Mass Index 28.3 - Constitutional Present: no acute distress - Routine HEENT Exam Head: Present: normal inspection - Routine Neck Exam Present: full ROM. Absent: lymphadenopathy - Routine Respiratory Exam Present: CTAB - Routine Cardiovascular Exam Cardiovascular: Present: RRR, S1, S2 - Routine Abdominal Exam Present: soft - Routine Extremities Exam Present: full ROM, joint swelling. Absent: calf tenderness, pedal edema, tenderness - Routine Skin Exam Present: intact. Absent: cyanosis, erythema Data - Labs CBC & Chem 7: 01/03/22 10:36 01/03/22 10:36 - Imaging Radiologist's impression: ITS Impressions Chest X-Ray 07/28/20 11:50 IMPRESSION: No evidence for acute disease in the chest. Sclerotic bone disease similar to previous exams. EXAMINATION: Right shoulder x-ray CLINICAL INFORMATION: Pain COMPARISON: None. TECHNIQUE: 4 views of the right shoulder FINDINGS: Bone alignment is normal. No fracture or dislocation is seen. The glenohumeral joint is normal. There is arthritis at the acromioclavicular joint. There is evidence of diffuse sclerotic bone disease. Soft tissues are unremarkable. IMPRESSION: Sclerotic bone disease. Arthritis at the acromioclavicular joint. EXAMINATION: Right knee x-ray CLINICAL INFORMATION: Pain COMPARISON: None. TECHNIQUE: 4 views right knee FINDINGS: Bone alignment is normal. No fracture or dislocation is seen. The joint spaces are normal. There is no joint effusion. IMPRESSION: Unremarkable exam. Knee X-Ray 07/28/20 11:50 IMPRESSION: No evidence for acute disease in the chest. Sclerotic bone disease similar to previous exams. EXAMINATION: Right shoulder x-ray CLINICAL INFORMATION: Pain COMPARISON: None. TECHNIQUE: 4 views of the right shoulder FINDINGS: Bone alignment is normal. No fracture or dislocation is seen. The glenohumeral joint is normal. There is arthritis at the acromioclavicular joint. There is evidence of diffuse sclerotic bone disease. Soft tissues are unremarkable. IMPRESSION: Sclerotic bone disease. Arthritis at the acromioclavicular joint. EXAMINATION: Right knee x-ray CLINICAL INFORMATION: Pain COMPARISON: None. TECHNIQUE: 4 views right knee FINDINGS: Bone alignment is normal. No fracture or dislocation is seen. The joint spaces are normal. There is no joint effusion. IMPRESSION: Unremarkable exam. Shoulder X-Ray 07/28/20 11:50 IMPRESSION: No evidence for acute disease in the chest. Sclerotic bone disease similar to previous exams. EXAMINATION: Right shoulder x-ray CLINICAL INFORMATION: Pain COMPARISON: None. TECHNIQUE: 4 views of the right shoulder FINDINGS: Bone alignment is normal. No fracture or dislocation is seen. The glenohumeral joint is normal. There is arthritis at the acromioclavicular joint. There is evidence of diffuse sclerotic bone disease. Soft tissues are unremarkable. IMPRESSION: Sclerotic bone disease. Arthritis at the acromioclavicular joint. EXAMINATION: Right knee x-ray CLINICAL INFORMATION: Pain COMPARISON: None. TECHNIQUE: 4 views right knee FINDINGS: Bone alignment is normal. No fracture or dislocation is seen. The joint spaces are normal. There is no joint effusion. IMPRESSION: Unremarkable exam. Assessment and Plan Patient Active problem list reviewed?: Yes (1) Prostate cancer metastatic to bone Status: Chronic Assessment and plan: 1. This is a 81 year-old male with metastatic Prostate Cancer, Bone Metastases diagnosed in 2012. pMSI. BRCA 10/05 negative. He is on LHRH agonist q 6 months. On monthly denosumab. He has been on chemotherapy and different hormonal therapies from July 2014. Patient resumed docetaxel with carboplatin in January 2022 after a 5 month hiatus during which he underwent right knee replacement. He will continue with Lupron and monthly denosumab. His last PSA was 91 NG/mL in March 2022. PSMA PET-CT was performed 08/04/2021, he has PSMA avid disease besides extensive bone metastasis he has supraclavicular and chest lymph nodes. He was hoping to receive Kirsten labeled PSMA-617 for PSMA positive tumors/metastasis, unfortunately it was not commercially available although FDA approved. He was going a to [facility] where he was initially felt to be a candidate to receive this treatment. Subsequently he was told about bone marrow suppression as he received previous radium treatment. He was recommended either enrollment into a clinical trial or resuming docetaxel/carboplatin which he was on until late 2020. Because of toxicity and side effects we discussed reducing doses to 75-80% and also increasing interval between treatments to every 4 weeks rather than 3 weeks. He was seen by Dr. Jaqueline Ayala at [facility], he has been recommended Cabazit hayde low mitoxantrone on progression. They did discuss lutetium therapy but this would be very intense therapy since he is at risk of severe cytopenias and would need transfusion support. It would also be difficult for him to travel to [place] as his is invalid. 2. Rght ear hearing loss. He has been started on high-dose steroids and is also receiving intra-auricular injections. He is scheduled to undergo brain MRI. Carboplatin can cause ototoxicity when combined with a minor glyco sides which patient did not receive. It should have been bilateral if it was related to chemotherapy. However I have discontinued it as he has disease progression and he has been recommended a different chemotherapy. In view of his multiple surgical procedures coming up in the next few weeks, chemotherapy today is being postponed. Follow-up in 4 weeks. - Time Spent With Patient Time Spent with Patient (in minutes): 15
--- NOTE | 2022-08-05 10:27 | MHC.HEMONC ---
Addendum entered by Luanne Barragan RN 08/05/22 11:45: XGeva given to left upper arm. Addendum entered by Luanne Barragan RN 08/05/22 11:41: Continues with right side hearing loss. Getting steroid injections to the ear from consulting business developer. Original Note: C1D1 cabazitaxel held per Dr Gonzalez. Nixon is on a high dose prednisone taper (currently taking 60 mg daily) and has upcoming eye surgery and a colonoscopy. He will see her in one month and chemotherapy schedule will be determined at that time. He is aware of the plan.
--- NOTE | 2022-08-25 13:00 | MHC.HEMONC ---
I was notified by Makenna in Phlebotomy that pt has not been home on several occasions for home lab draws. I spoke with patient and he has been having to go to a lot of appointments, this morning it was an MRI for his hearing loss. He also recently had cataract surgery and has had many f/u appointments. I did review the case with Makenna but she is unable to accommodate the patient with his unavailability when the debone supervisor comes to his home. I will discuss with Dr Gonzalez and patient and see if there are alternatives to his blood monitoring.
--- NOTE | 2022-09-12 09:13 | PM.HEMONCPN ---
Medical Summary - Medical Summary Date of Service: 09/12/22 Chief complaint: Follow-up Medical Summary: DIAGNOSIS: Mr. Morgan was diagnosed with prostate cancer in 2006. THERAPY: 1. He underwent radical retropubic prostatectomy with bilateral pelvic lymphadenectomy on March 31, 2007. 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 2. He underwent ERBT postoperatively in 2007 for a rising PSA. 3. He was diagnosed with metastatic disease, bony metastasis sometime in 2011 and has been on hormonal manipulation under the care of his urologist Dr. Oreilly. Repeat imaging: Restaging with a PET scan May 14, 2014 showed mild hypermetabolic activity in the right L2 pedicle SUV of 3.4, T11, T12 and T10 SUV of 5.28, and T5, T4 and T3 vertebrae with only residual sites of disease. No additional hypermetabolic activity in the skeleton, and no lymphadenopathy. Diffuse sclerotic lesions throughout cervical, dorsal, lumbar sacral spine, iliac bones and bilateral ribs consistent with old metastatic disease. PSA on May 02, 2014, 25.6 and total testosterone less than 1 ng/dL. 4. After oncology consultation in apr 2014, patient started Denosumab (Xgeva)120 mg subcu monthly, since June 02, 2014. 5. Because of rising PSA noted in July 2014 when it reggie 61, the patient was taken off Casodex. 6. The patient started Xtandi or enzalutamide at a dose of 160 mg once daily on October 14, 2014. 7. Started Xofigo (radium 223)dose of 55 KBq/ per kilo every 4 weeks for 6 doses on 04/05/16. 8. Received palliative radiotherapy to C2 vertebral body at [facility] in June 2017 because of increasing uptake on PET scan worrisome for metastasis. 9. He started zytiga Jul 2017 to Sep 2017. Discontinued for rising PSA. 10. He then received 6 cycles Taxotere from 10/25/17 to January 2018. MSI status on tumor, showed preserved expression of DNA mismatch repair proteins indicating lack of microsatellite instability. Patient?s genetic test result , extended my Risk genetic panel testing was negative. 11. Ketoconazole for 1 month apr/2017. 12. Was seen at [facility] by Dr. Jaqueline Ayala for second opinion as well as consideration of clinical trials, was recommended clinical trial with olaparib +/- Cederinib. If he decides against trial, options would be to reconsider Zytiga, chemotherapy with Cabazitaxel +/- Carboplatinum or Apalutamide. 13. Was on Apalutamide 240 mg once a day for about 3 months. Rising PSA. 14. Switched to Zytiga 1000 mg once a day with prednisone 5 mg b.i.d. from end of December 2018. 15. Discontinued 03/14/2019 because of rising PSA. 16. Started Cabazitaxel March 2019. Treated for Legionella pneumonia after cycle 1 17. Switched to Xtandi in September 2020 18. Started back on docetaxel but added carboplatin since 05/19/2021 because of progressive disease. Olaparib was not approved by insurance carrier. BRCA mutation is negative, Homologous recombination repair gene mutation to be performed if possible. He underwent iliac crest biopsy at the site of bony lesion, however, this was negative for any malignant cells. Interval History Interval history: Patient is here in follow-up. He has had both his cataracts faxed. Unfortunately, he has developed balance problems. He has been diagnosed with right a caustic neuroma and there is also a small 5 mm cerebellar lesion in his brain. He spoke to neurologist who does not think the brain lesion would account for his dizziness or balance problems. He finished course of steroids. His hearing is impaired. He is going to see ENT again this week for further recommendations. He denies any significant pain issues at this time in his back or shoulders. His weight is stable. Review of Systems - Constitutional Reports as per HPI, Reports no additional constitutional complaints, Denies fatigue, Denies lack of energy, Denies malaise, Denies poor appetite - Cardiovascular Reports no additional cardiovascular complaints - Respiratory Reports no additional respiratory complaints - Neurologic Reports no additional neurologic complaints, Denies headache(s) [facility] Medical History: Medical History (Last Reviewed 09/12/22 @ 09:18 by Ирина Spence) Acquired hypothyroidism Ascending aorta dilatation COVID-19 vaccine series completed Diabetes mellitus Family history of anesthesia complication GERD without esophagitis History of chemotherapy Legionella pneumonia Non-rheumatic aortic regurgitation Overweight (BMI 25.0-29.9) Port-A-Cath in place Primary osteoarthritis of right knee 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 Mother No problems noted. Surgical History: Surgical History (Last Reviewed 09/12/22 @ 09:18 by Ирина Spence) H/O colonoscopy History of appendectomy History of left inguinal hernia repair Onset Date: ~02/2011 History of prostatectomy Onset Date: ~03/31/07 History of shoulder surgery History of total right knee replacement Hx of bilateral cataract extraction Social History: Social History (Last Updated 09/12/22 @ 09:19 by Ирина Spence) Living Situation History: Household Members: Significant Other Housing: House Are you a primary personal care home administrator to a significant other at home: Yes Are you a primary personal care home administrator to a significant other at home comment: , bedridden ,Alzheimer's, on Hospice Do you presently have visiting nurse or other home services: Yes Do you presently have visiting nurse or other home services comment: Hospice nurse and [employer] 9-1 Alcohol History Details: 1. How often do you have a drink containing alcohol?: b. Monthly or less 2. How many drinks containing alcohol do you have on a typical day when you are drinking?: a. 1 or 2 Tobacco History: Patient Tobacco Use Status: Former Tobacco user Tobacco use type: Cigarette Smoke Quit Date: Second Hand Smoke Exposure: Yes Substance Use History: Use of substances other than those prescribed or required for medical reasons: No Domestic Abuse History: Have you been hit, kicked, punched, or otherwise hurt by someone within the past year? If so, by whom?: No Do you feel safe in your current relationship?: Yes Advance Directives: Advance Directives Date on File: 05/10/22 Homicidal Assessment: Do you have thoughts of harming others: None Do you have a plan to hurt others: No Plan Do you have the means to hurt others: No Nutrition Assessment: Recently lost weight without trying: No Occupation Assessmet: service: No Current occupational status: retired Home Medications and Allergies Home Medications Medication Instructions Recorded Confirmed Type denosumab 120 mg/1.7 mL (70 mg/mL) 120 mg subcut Q4W 07/28/20 09/12/22 History subcutaneous solution (Xgeva) vit C 250 mg-vit E 90 mg-zinc 40 1 tab PO QAM 12/08/21 09/12/22 History mg-copper 1 ya-[id number] capsule (PreserVision AREDS-2) ondansetron HCl 4 mg tablet 1 tab PO Q6H PRN nausea 02/02/22 09/12/22 History dexamethasone 4 mg tablet 4 mg PO BID 02/18/22 09/12/22 History famotidine 20 mg tablet 20 mg PO DAILY PRN Gastric Reflux 03/31/22 09/12/22 History leuprolide acetate (6 month) 45 mg 45 mg subcut [id number] 03/31/22 09/12/22 History (6 month) subcutaneous syringe (Eligard) Allergies Allergy/AdvReac Type Severity Reaction Status Date / Time No Known Allergies Allergy Verified 08/24/22 16:14 Exam Vital signs: Vital Signs Temp 97.0 F 08/05/22 08:39 Pulse 81 08/05/22 08:39 Resp 18 08/05/22 08:39 BP 142/82 H 08/05/22 08:39 Pulse Ox 97 08/05/22 08:39 O2 Del Method 08/05/22 08:39 Weight 87 kg BMI result Body Mass Index 28.3 - Constitutional Present: no acute distress - Routine HEENT Exam Head: Present: normal inspection - Routine Neck Exam Present: full ROM. Absent: lymphadenopathy - Routine Respiratory Exam Present: CTAB - Routine Cardiovascular Exam Cardiovascular: Present: RRR, S1, S2 - Routine Abdominal Exam Present: soft - Routine Extremities Exam Present: full ROM, joint swelling. Absent: calf tenderness, pedal edema, tenderness - Routine Skin Exam Present: intact. Absent: cyanosis, erythema Data - Labs CBC & Chem 7: 09/12/22 09:25 01/03/22 10:36 - Imaging Radiologist's impression: ITS Impressions Chest X-Ray 07/28/20 11:50 IMPRESSION: No evidence for acute disease in the chest. Sclerotic bone disease similar to previous exams. EXAMINATION: Right shoulder x-ray CLINICAL INFORMATION: Pain COMPARISON: None. TECHNIQUE: 4 views of the right shoulder FINDINGS: Bone alignment is normal. No fracture or dislocation is seen. The glenohumeral joint is normal. There is arthritis at the acromioclavicular joint. There is evidence of diffuse sclerotic bone disease. Soft tissues are unremarkable. IMPRESSION: Sclerotic bone disease. Arthritis at the acromioclavicular joint. EXAMINATION: Right knee x-ray CLINICAL INFORMATION: Pain COMPARISON: None. TECHNIQUE: 4 views right knee FINDINGS: Bone alignment is normal. No fracture or dislocation is seen. The joint spaces are normal. There is no joint effusion. IMPRESSION: Unremarkable exam. Knee X-Ray 07/28/20 11:50 IMPRESSION: No evidence for acute disease in the chest. Sclerotic bone disease similar to previous exams. EXAMINATION: Right shoulder x-ray CLINICAL INFORMATION: Pain COMPARISON: None. TECHNIQUE: 4 views of the right shoulder FINDINGS: Bone alignment is normal. No fracture or dislocation is seen. The glenohumeral joint is normal. There is arthritis at the acromioclavicular joint. There is evidence of diffuse sclerotic bone disease. Soft tissues are unremarkable. IMPRESSION: Sclerotic bone disease. Arthritis at the acromioclavicular joint. EXAMINATION: Right knee x-ray CLINICAL INFORMATION: Pain COMPARISON: None. TECHNIQUE: 4 views right knee FINDINGS: Bone alignment is normal. No fracture or dislocation is seen. The joint spaces are normal. There is no joint effusion. IMPRESSION: Unremarkable exam. Shoulder X-Ray 07/28/20 11:50 IMPRESSION: No evidence for acute disease in the chest. Sclerotic bone disease similar to previous exams. EXAMINATION: Right shoulder x-ray CLINICAL INFORMATION: Pain COMPARISON: None. TECHNIQUE: 4 views of the right shoulder FINDINGS: Bone alignment is normal. No fracture or dislocation is seen. The glenohumeral joint is normal. There is arthritis at the acromioclavicular joint. There is evidence of diffuse sclerotic bone disease. Soft tissues are unremarkable. IMPRESSION: Sclerotic bone disease. Arthritis at the acromioclavicular joint. EXAMINATION: Right knee x-ray CLINICAL INFORMATION: Pain COMPARISON: None. TECHNIQUE: 4 views right knee FINDINGS: Bone alignment is normal. No fracture or dislocation is seen. The joint spaces are normal. There is no joint effusion. IMPRESSION: Unremarkable exam. Assessment and Plan Patient Active problem list reviewed?: Yes (1) Prostate cancer metastatic to bone Status: Chronic Assessment and plan: 1. This is a 81 year-old male with metastatic Prostate Cancer, Bone Metastases diagnosed in 2012. pMSI. BRCA 10/05 negative. He is on LHRH agonist q 6 months. On monthly denosumab. He has been on chemotherapy and different hormonal therapies from July 2014. Patient resumed docetaxel with carboplatin in January 2022 after a 5 month hiatus during which he underwent right knee replacement. PSMA PET-CT was performed 08/04/2021, he has PSMA avid disease besides extensive bone metastasis he has supraclavicular and chest lymph nodes. He was hoping to receive Kirsten labeled PSMA-617 for PSMA positive tumors/metastasis, unfortunately it was not commercially available although FDA approved. He was going a to [facility] where he was initially felt to be a candidate to receive this treatment. Subsequently he was told about bone marrow suppression as he received previous radium treatment. He was recommended either enrollment into a clinical trial or resuming docetaxel/carboplatin which he was on until late 2020. He was seen by Dr. Jaqueline Ayala at [facility], he has been recommended Cabazitaxel or mitoxantrone on progression. They did discuss lutetium therapy but this would be very intense therapy since he is at risk of severe cytopenias and would need transfusion support. It would also be difficult for him to travel to [place] as his is invalid. 2. Rght earhearing loss balance problems. 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 There was also 5 mm enhancing nodule within the left superior vermis of the left cerebellum. This was done at outside facility. He went through course of high-dose steroids. 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 He is closely followed by ENT specialist. Unclear as to nature of lesion in the cerebellum. It could be malignancy related to his prostate cancer. PSMA PET scan is being ordered at this time. His last PSA was 201.6 The plan was to start him on Cabazitaxel in a few weeks. Follow-up in 4 weeks. - Time Spent With Patient Time Spent with Patient (in minutes): 15
[2022-09-12 09:15] VITALS: BP 136/73; PULSE 88; RESP 15; TEMP 36.6; O2SAT 99; BMI 27.7
[2022-09-12 09:29] LABS: MANUAL DIFF FLAG NO
[2022-09-12 09:32] LABS: Basophils Percent Auto 0.3 % (0-2); Eosinophils Absolute Auto 0.1 X10*3/uL (0.0-0.4); Eosinophils Percent Auto 1.3 % (0-4); Hematocrit 30.7 % (42.0-52.0); Imm Gran Abs Auto 0.05 X10*3/uL (0.00-0.03); Imm Gran Pct Auto 1.3 % (0.0-0.4); Lymphocytes Percent Auto 26.1 % (20-40); Mean Corpuscular HGB Conc 32.6 g/dl (31.0-36.0); Mean Corpuscular Hemoglobin 32.5 pg (27.0-33.0); Mean Corpuscular Volume 99.7 fL (80.0-98.0); Mean Platelet Volume 8.6 fL (9.4-12.4); Monocytes Absolute Auto 0.4 X10*3/uL (0.1-1.2); Monocytes Percent Auto 10.1 % (2-11); Neutrophils Absolute Auto 2.3 x10*3/uL (2.0-8.3); Neutrophils Percent Auto 60.9 % (45-73); Platelet Count 179 X10*3/uL (160-400); Red Blood Count 3.08 X10*6/uL (4.60-5.80); Red Cell Distribution Width 15.5 % (11.0-16.0); White Blood Count 3.8 X10*3/uL (4.8-10.8)
--- NOTE | 2022-09-12 09:43 | HO.HEMONCPA ---
NO PA REQUIRED FOR LEUPRONLIDE ACETATE. DRUG COVERED UNDER MEDICARE PART B BENEFITS
--- NOTE | 2022-09-12 10:08 | MHC.HEMONCMA ---
patient seen today for follow up bone CA, VSS, labs, injection today, 1 month followup.
[2022-09-12 10:44] LABS: Alanine Aminotransferase 20 U/L (0-40); Albumin Level 4.2 g/dL (3.5-5.0); Alkaline Phosphatase 135 U/L (39-117); Anion Gap 14 (12-20); Aspartate Amino Transferase 20 U/L (5-37); Bilirubin Total 0.4 mg/dL (0.0-1.0); Blood Urea Nitrogen 29 mg/dL (9-16); Carbon Dioxide 25 mmol/L (22-29); Chloride 106 mmol/L (96-108); Creatinine Clr Calc Pharmacy 61.1; Estimated Glomerular Filt Rate > 60; Glucose Random 201 mg/dL (60-115); Potassium 4.1 mmol/L (3.3-5.1); Sodium 141 mmol/L (135-145); Total Protein 6.4 g/dL (6.5-8.0)
[2022-09-12 11:21] LABS: Prostate Specific Antigen 164.28 ng/mL (<0.05-4.0)
--- NOTE | 2022-09-12 17:22 | MHC.HEMONC ---
Pt was in today for monthly Xgeva, as well as Onc f/u appt, had his labs drawn/reviewed, Ca resulted at 9.0. Dr. Gonzalez met w/ pt, decided to hold off beginning new IV Cabazitaxel regimen. Since pt said he had Eligard booked tomorrow, he asked if he could receive it here today instead of traveling to [facility] at Dr. Oreilly's office tomorrow. Supervisor [employer] was informed, determined pt does not need PA for Eligard. Nurse also verified no PA needed for Xgeva. Dr. Gonzalez ordered PET CT fusion skull to thigh, nurse printed order, presented to Supervisor [employer] Essie to check for PA. Nurse admin Eligard 45 mg SC to pt's LLQ abd and Xgeva 120 mg SC to pt's LUE, both well-tolerated. Pt was given d/c packet, next appt for Xgeva booked on 10/11/22, and nurse booked appt to have labs drawn in advance on 10/07/22.
--- NOTE | 2022-09-13 14:09 | HO.HEMONCPA ---
JUST RECEIVED ORDER FOR PET CT , NO PA IS REQUIRED FOR PET CT BECAUSE PATIENT HAS MEDICARE . I SENT IN CLINICAL INFORMATION TO [facility] FOR PSMA PET SCAN , AWAITING FAX BACK W/ APPT DATE & TIME.
--- NOTE | 2022-10-06 10:34 | MHC.HEMONC ---
Triage call: Patient reports he is scheduled for PET scan tomorrow 10/07 and wanted to ensure that he can proceed with his scheduled lab appt. Ok to proceed with lab appt prior/post PET scan.
[2022-10-07 10:52] LABS: MANUAL DIFF FLAG NO
[2022-10-07 10:58] LABS: Basophils Percent Auto 0.5 % (0-2); Eosinophils Absolute Auto 0.1 X10*3/uL (0.0-0.4); Eosinophils Percent Auto 1.9 % (0-4); Hematocrit 32.8 % (42.0-52.0); Hemoglobin 10.9 g/dl (14.0-18.0); Imm Gran Abs Auto 0.11 X10*3/uL (0.00-0.03); Imm Gran Pct Auto 2.9 % (0.0-0.4); Lymphocytes Percent Auto 27.2 % (20-40); Mean Corpuscular HGB Conc 33.2 g/dl (31.0-36.0); Mean Corpuscular Hemoglobin 32.5 pg (27.0-33.0); Mean Corpuscular Volume 97.9 fL (80.0-98.0); Mean Platelet Volume 8.5 fL (9.4-12.4); Monocytes Absolute Auto 0.4 X10*3/uL (0.1-1.2); Monocytes Percent Auto 10.3 % (2-11); Neutrophils Absolute Auto 2.2 x10*3/uL (2.0-8.3); Neutrophils Percent Auto 57.2 % (45-73); Platelet Count 189 X10*3/uL (160-400); Red Blood Count 3.35 X10*6/uL (4.60-5.80); Red Cell Distribution Width 15.3 % (11.0-16.0); White Blood Count 3.8 X10*3/uL (4.8-10.8)
[2022-10-07 11:15] LABS: Alanine Aminotransferase 25 U/L (0-40); Albumin Level 4.4 g/dL (3.5-5.0); Alkaline Phosphatase 173 U/L (39-117); Anion Gap 18 (12-20); Aspartate Amino Transferase 25 U/L (5-37); Bilirubin Total 0.5 mg/dL (0.0-1.0); Blood Urea Nitrogen 23 mg/dL (9-16); Calcium 9.4 mg/dL (8.4-10.2); Carbon Dioxide 23 mmol/L (22-29); Chloride 104 mmol/L (96-108); Creatinine Clr Calc Pharmacy 63.7; Estimated Glomerular Filt Rate > 60; Glucose Random 142 mg/dL (60-115); Potassium 4.2 mmol/L (3.3-5.1); Sodium 141 mmol/L (135-145)
--- NOTE | 2022-10-11 10:00 | P.PNHO-ONC_ITS ---
Medical Summary - Medical Summary Date of Service: 10/11/22 Chief complaint: Follow-up Medical Summary: DIAGNOSIS: Mr. Morgan was diagnosed with prostate cancer in 2006. THERAPY: 1. He underwent radical retropubic prostatectomy with bilateral pelvic lymphadenectomy on March 31, 2007. He was staged as a T3a [place]'s 4 + 3 prostate adenocarcinoma. 2. He underwent ERBT postoperatively in 2007 for a rising PSA. 3. He was diagnosed with metastatic disease, bony metastasis sometime in 2011 and has been on hormonal manipulation under the care of his urologist Dr. Oreilly. Repeat imaging: Restaging with a PET scan May 14, 2014 showed mild hypermetabolic activity in the right L2 pedicle SUV of 3.4, T11, T12 and T10 SUV of 5.28, and T5, T4 and T3 vertebrae with only residual sites of disease. No additional hypermetabolic activity in the skeleton, and no lymphadenopathy. Diffuse sclerotic lesions throughout cervical, dorsal, lumbar sacral spine, iliac bones and bilateral ribs consistent with old metastatic disease. PSA on May 02, 2014, 25.6 and total testosterone less than 1 ng/dL. 4. After oncology consultation in apr 2014, patient started Denosumab (Xgeva)120 mg subcu monthly, since June 02, 2014. 5. Because of rising PSA noted in July 2014 when it reggie 61, the patient was taken off Casodex. 6. The patient started Xtandi or enzalutamide at a dose of 160 mg once daily on October 14, 2014. 7. Started Xofigo (radium 223)dose of 55 KBq/ per kilo every 4 weeks for 6 doses on 04/05/16. 8. Received palliative radiotherapy to C2 vertebral body at [facility] in June 2017 because of increasing uptake on PET scan worrisome for metastasis. 9. He started zytiga Jul 2017 to Sep 2017. Discontinued for rising PSA. 10. He then received 6 cycles Taxotere from 10/25/17 to January 2018. MSI status on tumor, showed preserved expression of DNA mismatch repair proteins indicating lack of microsatellite instability. Patient?s genetic test result , extended my Risk genetic panel testing was negative. 11. Ketoconazole for 1 month apr/2017. 12. Was seen at [facility] by Dr. Jaqueline Ayala for second opinion as well as consideration of clinical trials, was recommended clinical trial with olaparib +/- Cederinib. If he decides against trial, options would be to reconsider Zytiga, chemotherapy with Cabazitaxel +/- Carboplatinum or Apalutamide. 13. Was on Apalutamide 240 mg once a day for about 3 months. Rising PSA. 14. Switched to Zytiga 1000 mg once a day with prednisone 5 mg b.i.d. from end of December 2018. 15. Discontinued 03/14/2019 because of rising PSA. 16. Started Cabazitaxel March 2019. Treated for Legionella pneumonia after cycle 1 17. Switched to Xtandi in September 2020 18. Started back on docetaxel but added carboplatin since 05/19/2021 because of progressive disease. Olaparib was not approved by insurance carrier. BRCA mutation is negative, Homologous recombination repair gene mutation to be performed if possible. He underwent iliac crest biopsy at the site of bony lesion, however, this was negative for any malignant cells. PSMA PET-CT was performed 08/04/2021, he has PSMA avid disease besides extensive bone metastasis he has supraclavicular and chest lymph nodes. He was hoping to receive Kirsten labeled PSMA-617 for PSMA positive tumors/metastasis, unfortunately it was not commercially available although FDA approved. He was going a to [facility] where he was initially felt to be a candidate to receive this treatment. Subsequently he was told about bone marrow suppression as he received previous radium treatment. He was recommended either enrollment into a clinical trial or resuming docetaxel/carboplatin which he was on until late 2020. Interval History Interval history: Patient is here in follow-up. He has been told that the brain tumor causing his year problems is not operable. It is usually slow growing and if he has any more symptoms or other if there is growth radiotherapy could be offered. He denies any falls or significant balance problems at this time. He denies any headaches. He continues to have hearing loss. His body aches are about the same. He is feeling better overall since stopping chemotherapy. His appetite is stable, he has not lost too much weight. Review of Systems - Constitutional Reports as per HPI, Reports fatigue, Reports malaise, Denies night sweats, Denies poor appetite, Denies weight loss - Cardiovascular Reports no additional cardiovascular complaints - Respiratory Reports no additional respiratory complaints - Gastrointestinal Reports no additional gastrointestinal complaints - Neurologic Reports no additional neurologic complaints, Denies headache(s) [facility] Medical History: Medical History (Last Reviewed 10/11/22 @ 10:09 by Ирина Spence) Acquired hypothyroidism Ascending aorta dilatation COVID-19 vaccine series completed Diabetes mellitus Family history of anesthesia complication GERD without esophagitis History of chemotherapy Legionella pneumonia Non-rheumatic aortic regurgitation Overweight (BMI 25.0-29.9) Port-A-Cath in place Primary osteoarthritis of right knee 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 Mother No problems noted. Surgical History: Surgical History (Last Reviewed 10/11/22 @ 10:09 by Ирина Spence) H/O colonoscopy History of appendectomy History of left inguinal hernia repair Onset Date: ~02/2011 History of prostatectomy Onset Date: ~03/31/07 History of shoulder surgery History of total right knee replacement Hx of bilateral cataract extraction Social History: Social History (Last Reviewed 10/11/22 @ 10:09 by Ирина Spence) Living Situation History: Household Members: Significant Other Housing: House Are you a primary school child care attendant to a significant other at home: Yes Are you a primary school child care attendant to a significant other at home comment: , bedridden ,Alzheimer's, on Hospice Do you presently have visiting nurse or other home services: Yes Do you presently have visiting nurse or other home services comment: Hospice nurse and [employer] 9-1 Alcohol History Details: 1. How often do you have a drink containing alcohol?: b. Monthly or less 2. How many drinks containing alcohol do you have on a typical day when you are drinking?: a. 1 or 2 Tobacco History: Patient Tobacco Use Status: Former Tobacco user Tobacco use type: Cigarette Smoke Quit Date: Second Hand Smoke Exposure: Yes Substance Use History: Use of substances other than those prescribed or required for medical reasons : No Domestic Abuse History: Have you been hit, kicked, punched, or otherwise hurt by someone within the past year? If so, by whom?: No Do you feel safe in your current relationship?: Yes Advance Directives: Advance Directives Date on File: 05/10/22 Homicidal Assessment: Do you have thoughts of harming others: None Do you have a plan to hurt others: No Plan Do you have the means to hurt others: No Nutrition Assessment: Recently lost weight without trying: No Occupation Assessmet: service: No Current occupational status: retired Oncology Screenings - ECOG Performance Status ECOG Performance Status: 1 Home Medications and Allergies Current Medications: Current Medications Denosumab (Denosumab 120 Mg/1.7 Ml Vial) 120 mg SUBCUT ONCE RAIMUNDO Stop: 10/11/22 23:59 Home Medications Medication Instructions Recorded Confirmed Type denosumab 120 mg/1.7 mL (70 mg/mL) 120 mg subcut Q4W 07/28/20 10/11/22 History subcutaneous solution (Xgeva) vit C 250 mg-vit E 90 mg-zinc 40 1 tab PO QAM 12/08/21 10/11/22 History mg-copper 1 [id number] capsule (PreserVision AREDS-2) ondansetron HCl 4 mg tablet 1 tab PO Q6H PRN nausea 02/02/22 10/11/22 History dexamethasone 4 mg tablet 4 mg PO BID 02/18/22 10/11/22 History famotidine 20 mg tablet 20 mg PO DAILY PRN Gastric Reflux 03/31/22 10/11/22 History leuprolide acetate (6 month) 45 mg 45 mg subcut [id number] 03/31/22 10/11/22 History (6 month) subcutaneous syringe (Eligard) Allergies Allergy/AdvReac Type Severity Reaction Status Date / Time No Known Allergies Allergy Verified 08/24/22 16:14 Exam Vital signs: Vital Signs Temp 97.8 F 09/12/22 09:15 Pulse 88 09/12/22 09:15 Resp 15 09/12/22 09:15 BP 136/73 09/12/22 09:15 Pulse Ox 99 09/12/22 09:15 O2 Del Method 09/12/22 09:15 Intake & Output 10/10/22 10/11/22 10/11/22 18:59 06:59 18:59 Other: Weight 85.1 kg Weight 85.1 kg BMI result Body Mass Index 27.7 - Constitutional Present: no acute distress - Routine HEENT Exam Head: Present: normal inspection - Routine Neck Exam Present: full ROM. Absent: lymphadenopathy - Routine Respiratory Exam Present: CTAB - Routine Cardiovascular Exam Cardiovascular: Present: RRR, S1, S2 - Routine Abdominal Exam Present: soft - Routine Extremities Exam Present: full ROM, joint swelling. Absent: calf tenderness, pedal edema, tenderness - Routine Skin Exam Present: intact. Absent: cyanosis, erythema Data - Labs CBC & Chem 7: 10/07/22 10:47 10/07/22 10:47 - Imaging Radiologist's impression: ITS Impressions Chest X-Ray 07/28/20 11:50 IMPRESSION: No evidence for acute disease in the chest. Sclerotic bone disease similar to previous exams. EXAMINATION: Right shoulder x-ray CLINICAL INFORMATION: Pain COMPARISON: None. TECHNIQUE: 4 views of the right shoulder FINDINGS: Bone alignment is normal. No fracture or dislocation is seen. The glenohumeral joint is normal. There is arthritis at the acromioclavicular joint. There is evidence of diffuse sclerotic bone disease. Soft tissues are unremarkable. IMPRESSION: Sclerotic bone disease. Arthritis at the acromioclavicular joint. EXAMINATION: Right knee x-ray CLINICAL INFORMATION: Pain COMPARISON: None. TECHNIQUE: 4 views right knee FINDINGS: Bone alignment is normal. No fracture or dislocation is seen. The joint spaces are normal. There is no joint effusion. IMPRESSION: Unremarkable exam. Knee X-Ray 07/28/20 11:50 IMPRESSION: No evidence for acute disease in the chest. Sclerotic bone disease similar to previous exams. EXAMINATION: Right shoulder x-ray CLINICAL INFORMATION: Pain COMPARISON: None. TECHNIQUE: 4 views of the right shoulder FINDINGS: Bone alignment is normal. No fracture or dislocation is seen. The glenohumeral joint is normal. There is arthritis at the acromioclavicular joint. There is evidence of diffuse sclerotic bone disease. Soft tissues are unremarkable. IMPRESSION: Sclerotic bone disease. Arthritis at the acromioclavicular joint. EXAMINATION: Right knee x-ray CLINICAL INFORMATION: Pain COMPARISON: None. TECHNIQUE: 4 views right knee FINDINGS: Bone alignment is normal. No fracture or dislocation is seen. The joint spaces are normal. There is no joint effusion. IMPRESSION: Unremarkable exam. Shoulder X-Ray 07/28/20 11:50 IMPRESSION: No evidence for acute disease in the chest. Sclerotic bone disease similar to previous exams. EXAMINATION: Right shoulder x-ray CLINICAL INFORMATION: Pain COMPARISON: None. TECHNIQUE: 4 views of the right shoulder FINDINGS: Bone alignment is normal. No fracture or dislocation is seen. The glenohumeral joint is normal. There is arthritis at the acromioclavicular joint. There is evidence of diffuse sclerotic bone disease. Soft tissues are unremarkable. IMPRESSION: Sclerotic bone disease. Arthritis at the acromioclavicular joint. EXAMINATION: Right knee x-ray CLINICAL INFORMATION: Pain COMPARISON: None. TECHNIQUE: 4 views right knee FINDINGS: Bone alignment is normal. No fracture or dislocation is seen. The joint spaces are normal. There is no joint effusion. IMPRESSION: Unremarkable exam. Assessment and Plan Patient Active problem list reviewed?: Yes (1) Prostate cancer metastatic to bone Status: Chronic Assessment and plan: 1. This is a 82 year-old male with metastatic Prostate Cancer, Bone Metastases diagnosed in 2012. pMSI. BRCA 10/05 negative. He is on LHRH agonist q 6 months. On monthly denosumab. He has been on chemotherapy and different hormonal therapies from July 2014. Patient resumed docetaxel with carboplatin in January 2022 after a 5 month hiatus during which he underwent right knee replacement. He was hoping to receive Kirsten labeled PSMA-617 for PSMA positive tumors/metastasis, he was told about bone marrow suppression as he received previous radium treatment. He was recommended either enrollment into a clinical trial or resuming docetaxel/carboplatin which he was on until late 2020. He was seen by Dr. Jaqueline Ayala at [facility] 2021, he has been recommended Cabazitaxel or mitoxantrone on progression. They did discuss lutetium therapy but this would be very intense therapy since he is at risk of severe cytopenias and would need transfusion support. It would also be difficult for him to travel to [place] as his is invalid. PSMA PET-CT performed at [facility] on 10/07/2021 showed multifocal abnormal osseous uptake consistent with widespread bony metastasis. Uptake noted throughout cervical, thoracic, lumbar spine, both shoulders and scapula, multiple ribs, pelvic bones and proximal femurs. Max SUV 20.2 in the left side of sacrum. Metabolically active left axillary lymphadenopathy, metabolically active azygos node as well as small nodes in the left of mid esophagus. All the lymph nodes appear to be small. No uptake in the brain mentioned. 2. Rght earhearing loss balance problems. 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 There was also 5 mm enhancing nodule within the left superior vermis of the left cerebellum. This was done at outside facility. He went through course of high-dose steroids. 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 He is closely followed by ENT specialist. At this time patient would like to hold off chemotherapy. He is feeling better and he would like to readdress this issue in a month. Denosumab administered today. Follow-up in 4 weeks. - Time Spent With Patient Time Spent with Patient (in minutes): 15
[2022-10-11 10:06] VITALS: BP 139/92; PULSE 92; RESP 14; TEMP 36.7; O2SAT 96; BMI 27.6
--- NOTE | 2022-10-11 10:11 | MHC.HEMONC ---
Here for follow up with Dr Gonzalez and denosumab sc. Calcium 9.4 on 10/07. Denosumab 120mg sc given left upper arm and tolerated well. Dr Gonzalez to see pt for follow up.
--- NOTE | 2022-10-11 11:48 | MHC.HEMONCMA ---
patient seen today for followup for prostate ca, VSS, labs, 1 month followup .
--- NOTE | 2022-11-11 11:46 | HE.ONCSEC ---
On 11.11 called and confirmed Lab appt on 11/15.
[2022-11-15 10:09] LABS: MANUAL DIFF FLAG NO
[2022-11-15 10:14] LABS: Basophils Percent Auto 0.6 % (0-2); Eosinophils Absolute Auto 0.1 X10*3/uL (0.0-0.4); Eosinophils Percent Auto 1.7 % (0-4); Hematocrit 30.3 % (42.0-52.0); Hemoglobin 9.6 g/dl (14.0-18.0); Imm Gran Abs Auto 0.16 X10*3/uL (0.00-0.03); Imm Gran Pct Auto 4.5 % (0.0-0.4); Lymphocytes Absolute Auto 1.1 X10*3/uL (1.2-4.9); Lymphocytes Percent Auto 31.7 % (20-40); Mean Corpuscular HGB Conc 31.7 g/dl (31.0-36.0); Mean Corpuscular Hemoglobin 31.3 pg (27.0-33.0); Mean Corpuscular Volume 98.7 fL (80.0-98.0); Mean Platelet Volume 9.2 fL (9.4-12.4); Monocytes Absolute Auto 0.4 X10*3/uL (0.1-1.2); NRBC Pct Auto 0.8 /100WBC (0.0-0.2); Neutrophils Absolute Auto 1.8 x10*3/uL (2.0-8.3); Neutrophils Percent Auto 50.5 % (45-73); Platelet Count 181 X10*3/uL (160-400); Red Blood Count 3.07 X10*6/uL (4.60-5.80); Red Cell Distribution Width 15.8 % (11.0-16.0); White Blood Count 3.6 X10*3/uL (4.8-10.8)
[2022-11-15 10:39] LABS: Alanine Aminotransferase 31 U/L (0-40); Albumin Level 4.2 g/dL (3.5-5.0); Alkaline Phosphatase 221 U/L (39-117); Anion Gap 13 (12-20); Aspartate Amino Transferase 31 U/L (5-37); Bilirubin Total 0.5 mg/dL (0.0-1.0); Blood Urea Nitrogen 25 mg/dL (9-16); Calcium 8.9 mg/dL (8.4-10.2); Carbon Dioxide 25 mmol/L (22-29); Chloride 108 mmol/L (96-108); Creatinine Clr Calc Pharmacy 57.7; Estimated Glomerular Filt Rate > 60; Glucose Random 180 mg/dL (60-115); Potassium 4.4 mmol/L (3.3-5.1); Sodium 142 mmol/L (135-145); Total Protein 6.4 g/dL (6.5-8.0)
[2022-11-16 09:59] VITALS: BP 129/61; PULSE 87; TEMP 36.4; O2SAT 99; BMI 27.6
--- NOTE | 2022-11-16 10:05 | P.PNHO-ONC_ITS ---
Medical Summary - Medical Summary Date of Service: 11/16/22 Chief complaint: Follow up Medical Summary: DIAGNOSIS: Mr. Morgan was diagnosed with prostate cancer in 2006. THERAPY: 1. He underwent radical retropubic prostatectomy with bilateral pelvic lymphadenectomy on March 31, 2007. He was staged as a T3a [place] 4 + 3 prostate adenocarcinoma. 2. He underwent ERBT postoperatively in 2007 for a rising PSA. 3. He was diagnosed with metastatic disease, bony metastasis sometime in 2011 and has been on hormonal manipulation under the care of his urologist Dr. Oreilly. Repeat imaging: Restaging with a PET scan May 14, 2014 showed mild hypermetabolic activity in the right L2 pedicle SUV of 3.4, T11, T12 and T10 SUV of 5.28, and T5, T4 and T3 vertebrae with only residual sites of disease. No additional hypermetabolic activity in the skeleton, and no lymphadenopathy. Diffuse sclerotic lesions throughout cervical, dorsal, lumbar sacral spine, iliac bones and bilateral ribs consistent with old metastatic disease. PSA on May 02, 2014, 25.6 and total testosterone less than 1 ng/dL. 4. After oncology consultation in apr 2014, patient started Denosumab (Xgeva)120 mg subcu monthly, since June 02, 2014. 5. Because of rising PSA noted in July 2014 when it reggie 61, the patient was taken off Casodex. 6. The patient started Xtandi or enzalutamide at a dose of 160 mg once daily on October 14, 2014. 7. Started Xofigo (radium 223)dose of 55 KBq/ per kilo every 4 weeks for 6 doses on 04/05/16. 8. Received palliative radiotherapy to C2 vertebral body at [facility] in June 2017 because of increasing uptake on PET scan worrisome for metastasis. 9. He started zytiga Jul 2017 to Sep 2017. Discontinued for rising PSA. 10. He then received 6 cycles Taxotere from 10/25/17 to January 2018. MSI status on tumor, showed preserved expression of DNA mismatch repair proteins indicating lack of microsatellite instability. Patient?s genetic test result , extended my Risk genetic panel testing was negative. 11. Ketoconazole for 1 month apr/2017. 12. Was seen at [facility] by Dr. Jaqueline Ayala for second opinion as well as consideration of clinical trials, was recommended clinical trial with olaparib +/- Cederinib. If he decides against trial, options would be to reconsider Zytiga, chemotherapy with Cabazitaxel +/- Carboplatinum or Apalutamide. 13. Was on Apalutamide 240 mg once a day for about 3 months. Rising PSA. 14. Switched to Zytiga 1000 mg once a day with prednisone 5 mg b.i.d. from end of December 2018. 15. Discontinued 03/14/2019 because of rising PSA. 16. Started Cabazitaxel March 2019. Treated for Legionella pneumonia after cycle 1 17. Switched to Xtandi in September 2020 18. Started back on docetaxel but added carboplatin since 05/19/2021 because of progressive disease. Olaparib was not approved by insurance carrier. BRCA mutation is negative, Homologous recombination repair gene mutation to be performed if possible. He underwent iliac crest biopsy at the site of bony lesion, however, this was negative for any malignant cells. PSMA PET-CT was performed 08/04/2021, he has PSMA avid disease besides extensive bone metastasis he has supraclavicular and chest lymph nodes. He was hoping to receive Kirsten labeled PSMA-617 for PSMA positive tumors/metastasis, unfortunately it was not commercially available although FDA approved. He was going a to [facility] where he was initially felt to be a candidate to receive this treatment. Subsequently he was told about bone marrow suppression as he received previous radium treatment. He was recommended either enrollment into a clinical trial or resuming docetaxel/carboplatin which he was on until late 2020. Interval History Interval history: Patient is here in follow-up. He is doing okay, reports some fatigue but no loss of appetite or significant weight loss. No pain issues but he does have arthritis of his joints that is chronic. He reports occasional, intermittent nausea and he does take antiemetics which relieves nausea immediately. He denies any fever, chills or recent infections. No abdominal pain or change in bowel habits. Review of Systems - Constitutional Reports as per HPI, Reports fatigue, Reports malaise, Denies night sweats, Denies weight loss - Cardiovascular Reports no additional cardiovascular complaints - Respiratory Reports no additional respiratory complaints - Gastrointestinal Reports no additional gastrointestinal complaints - Neurologic Reports no additional neurologic complaints, Denies headache(s) [facility] Medical History: Medical History (Last Updated 11/16/22 @ 10:02 by Ирина Spence) Acquired hypothyroidism Ascending aorta dilatation COVID-19 vaccine series completed Diabetes mellitus Family history of anesthesia complication GERD without esophagitis History of chemotherapy Legionella pneumonia Non-rheumatic aortic regurgitation Overweight (BMI 25.0-29.9) Port-A-Cath in place Primary osteoarthritis of right knee Prostate cancer metastatic to bone Prostate cancer metastatic to bone Pure hypercholesterolemia Radiation proctitis Wears hearing aid in both ears Family History: Family History (Last Reviewed 07/24/22 @ 07:58 by Héctor Perla MD) Father No problems noted. Mother No problems noted. Surgical History: Surgical History (Last Reviewed 11/16/22 @ 10:01 by Ирина Spence) H/O colonoscopy History of appendectomy History of left inguinal hernia repair Onset Date: ~02/2011 History of prostatectomy Onset Date: ~03/31/07 History of shoulder surgery History of total right knee replacement Hx of bilateral cataract extraction Social History: Social History (Last Reviewed 11/16/22 @ 10:02 by Ирина Spence) Living Situation History: Household Members: Significant Other Housing: House Are you a primary health care social worker to a significant other at home: Yes Are you a primary health care social worker to a significant other at home comment: , bedridden ,Alzheimer's, on Hospice Do you presently have visiting nurse or other home services: Yes Do you presently have visiting nurse or other home services comment: Hospice nurse and [employer] 9-1 Alcohol History Details: 1. How often do you have a drink containing alcohol?: b. Monthly or less 2. How many drinks containing alcohol do you have on a typical day when you are drinking?: a. 1 or 2 Tobacco History: Patient Tobacco Use Status: Former Tobacco user Tobacco use type: Cigarette Smoke Quit Date: Second Hand Smoke Exposure: Yes Substance Use History: Use of substances other than those prescribed or required for medical reasons : No Domestic Abuse History: Have you been hit, kicked, punched, or otherwise hurt by someone within the past year? If so, by whom?: No Do you feel safe in your current relationship?: Yes Advance Directives: Advance Directives Date on File: 05/10/22 Homicidal Assessment: Do you have thoughts of harming others: None Do you have a plan to hurt others: No Plan Do you have the means to hurt others: No Nutrition Assessment: Recently lost weight without trying: No Occupation Assessmet: service: No Current occupational status: retired Oncology Screenings - ECOG Performance Status ECOG Performance Status: 1 Home Medications and Allergies Home Medications Medication Instructions Recorded Confirmed Type denosumab 120 mg/1.7 mL (70 mg/mL) 120 mg subcut Q4W 07/28/20 11/16/22 History subcutaneous solution (Xgeva) vit C 250 mg-vit E 90 mg-zinc 40 1 tab PO QAM 12/08/21 11/16/22 History mg-copper 1 [id number] capsule (PreserVision AREDS-2) dexamethasone 4 mg tablet 4 mg PO BID 02/18/22 11/16/22 History famotidine 20 mg tablet 20 mg PO DAILY PRN Gastric Reflux 03/31/22 11/16/22 History leuprolide acetate (6 month) 45 mg 45 mg subcut [id number] 03/31/22 11/16/22 History (6 month) subcutaneous syringe ([facility]) Allergies Allergy/AdvReac Type Severity Reaction Status Date / Time No Known Allergies Allergy Verified 08/24/22 16:14 Exam Vital signs: Vital Signs Temp 97.5 F 11/16/22 09:59 Pulse 87 11/16/22 09:59 Resp 14 10/11/22 10:06 BP 129/61 11/16/22 09:59 Pulse Ox 99 11/16/22 09:59 O2 Del Method 11/16/22 09:59 Intake & Output 11/15/22 11/16/22 11/16/22 18:59 06:59 18:59 Other: Weight 85 kg [place] Weight in Grams 25148 Weight 85 kg BMI result Body Mass Index 27.6 - Constitutional Present: no acute distress - Routine HEENT Exam Head: Present: normal inspection - Routine Neck Exam Present: full ROM. Absent: lymphadenopathy - Routine Respiratory Exam Present: CTAB - Routine Cardiovascular Exam Cardiovascular: Present: RRR, S1, S2 - Routine Abdominal Exam Present: soft - Routine Extremities Exam Present: full ROM, joint swelling. Absent: calf tenderness, pedal edema, tenderness - Routine Skin Exam Present: intact. Absent: cyanosis, erythema Data - Labs CBC & Chem 7: 11/15/22 09:48 11/15/22 09:48 - Imaging Radiologist's impression: ITS Impressions Chest X-Ray 07/28/20 11:50 IMPRESSION: No evidence for acute disease in the chest. Sclerotic bone disease similar to previous exams. EXAMINATION: Right shoulder x-ray CLINICAL INFORMATION: Pain COMPARISON: None. TECHNIQUE: 4 views of the right shoulder FINDINGS: Bone alignment is normal. No fracture or dislocation is seen. The glenohumeral joint is normal. There is arthritis at the acromioclavicular joint. There is evidence of diffuse sclerotic bone disease. Soft tissues are unremarkable. IMPRESSION: Sclerotic bone disease. Arthritis at the acromioclavicular joint. EXAMINATION: Right knee x-ray CLINICAL INFORMATION: Pain COMPARISON: None. TECHNIQUE: 4 views right knee FINDINGS: Bone alignment is normal. No fracture or dislocation is seen. The joint spaces are normal. There is no joint effusion. IMPRESSION: Unremarkable exam. Knee X-Ray 07/28/20 11:50 IMPRESSION: No evidence for acute disease in the chest. Sclerotic bone disease similar to previous exams. EXAMINATION: Right shoulder x-ray CLINICAL INFORMATION: Pain COMPARISON: None. TECHNIQUE: 4 views of the right shoulder FINDINGS: Bone alignment is normal. No fracture or dislocation is seen. The glenohumeral joint is normal. There is arthritis at the acromioclavicular joint. There is evidence of diffuse sclerotic bone disease. Soft tissues are unremarkable. IMPRESSION: Sclerotic bone disease. Arthritis at the acromioclavicular joint. EXAMINATION: Right knee x-ray CLINICAL INFORMATION: Pain COMPARISON: None. TECHNIQUE: 4 views right knee FINDINGS: Bone alignment is normal. No fracture or dislocation is seen. The joint spaces are normal. There is no joint effusion. IMPRESSION: Unremarkable exam. Shoulder X-Ray 07/28/20 11:50 IMPRESSION: No evidence for acute disease in the chest. Sclerotic bone disease similar to previous exams. EXAMINATION: Right shoulder x-ray CLINICAL INFORMATION: Pain COMPARISON: None. TECHNIQUE: 4 views of the right shoulder FINDINGS: Bone alignment is normal. No fracture or dislocation is seen. The glenohumeral joint is normal. There is arthritis at the acromioclavicular joint. There is evidence of diffuse sclerotic bone disease. Soft tissues are unremarkable. IMPRESSION: Sclerotic bone disease. Arthritis at the acromioclavicular joint. EXAMINATION: Right knee x-ray CLINICAL INFORMATION: Pain COMPARISON: None. TECHNIQUE: 4 views right knee FINDINGS: Bone alignment is normal. No fracture or dislocation is seen. The joint spaces are normal. There is no joint effusion. IMPRESSION: Unremarkable exam. Assessment and Plan Patient Active problem list reviewed?: Yes (1) Prostate cancer metastatic to bone Status: Chronic Assessment and plan: 1. This is a 82 year-old male with metastatic Prostate Cancer, Bone Metastases diagnosed in 2012. pMSI. BRCA 10/05 negative. He is on LHRH agonist q 6 months. On monthly denosumab. He has been on chemotherapy and different hormonal therapies from July 2014. Patient resumed docetaxel with carboplatin in January 2022 after a 5 month hiatus during which he underwent right knee replacement. He was hoping to receive Kirsten labeled PSMA-617 for PSMA positive tumors/metastasis, he was told about bone marrow suppression as he received previous radium treatment. He was recommended either enrollment into a clinical trial or resuming d ocetaxel/carboplatin which he was on until late 2020. He was seen by Dr. Jaqueline Ayala at [facility] 2021, he has been recommended Cabazitaxel or mitoxantrone on progression. They did discuss lutetium therapy but this would be very intense therapy since he is at risk of severe cytopenias and would need transfusion support. It would also be difficult for him to travel to [place] as his is invalid. PSMA PET-CT performed at [facility] on 10/07/2022 showed multifocal abnormal osseous uptake consistent with widespread bony metastasis. Uptake noted throughout cervical, thoracic, lumbar spine, both shoulders and scapula, multiple ribs, pelvic bones and proximal femurs. Max SUV 20.2 in the left side of sacrum. Metabolically active left axillary lymphadenopathy, metabolically active azygos node as well as small nodes in the left of mid esophagus. All the lymph nodes appear to be small. No uptake in the brain mentioned. 2. Rght earhearing loss balance problems. 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 There was also 5 mm enhancing nodule with in the left superior vermis of the left cerebellum. This was done at outside facility. He went through course of high-dose steroids. 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 He is closely followed by ENT specialist. At this time patient would like to hold off chemotherapy. Denosumab admin istered today. PSA and Testosterone level from today is pending. I will consider antiandrogen therapy if he does not want to resume chemotherapy. Follow-up in 4 weeks. - Time Spent With Patient Time Spent with Patient (in minutes): 20
--- NOTE | 2022-11-16 10:18 | MHC.HEMONCMA ---
Patient seen today for followup prostate CA, VSS, labs, 1 month follow up.
[2022-11-16 12:23] LABS: Prostate Specific Antigen 206.36 ng/mL (<0.05-4.0)
--- NOTE | 2022-11-16 16:16 | MHC.HEMONC ---
Xgeva 120mg sc given left arm and tolerated well. Calcium 8.9. Next injection scheduled with follow up in 1 month.
--- NOTE | 2022-11-17 17:17 | MHC.HEMONC ---
Nurse took message from Lacie at [facility] lab, wanted to be sure Dr. Gonzalez was aware that pt's PSA drawn yesterday resulted greater than 200. Nurse [address] Gonzalez, she confirmed she was aware.
[2022-11-24 17:33] LABS: Testosterone, Free 0.5 pg/mL (30.0-135.0); Testosterone, Total 5 ng/dL (250-1100)
--- NOTE | 2022-12-13 10:45 | MHC.HEMONC ---
Pt here for lab draw. Port accessed with blood return noted. Labs drawn from port-specimen to lab. Port flushed with heparin and de accessed. Calendar given with next port flush scheduled
[2022-12-13 10:46] LABS: MANUAL DIFF FLAG NO
[2022-12-13 10:48] LABS: Basophils Percent Auto 0.8 % (0-2); Eosinophils Percent Auto 0.8 % (0-4); Hematocrit 28.2 % (42.0-52.0); Imm Gran Abs Auto 0.18 X10*3/uL (0.00-0.03); Imm Gran Pct Auto 4.7 % (0.0-0.4); Lymphocytes Percent Auto 25.1 % (20-40); Mean Corpuscular HGB Conc 31.9 g/dl (31.0-36.0); Mean Corpuscular Hemoglobin 31.1 pg (27.0-33.0); Mean Corpuscular Volume 97.6 fL (80.0-98.0); Mean Platelet Volume 8.9 fL (9.4-12.4); Monocytes Absolute Auto 0.5 X10*3/uL (0.1-1.2); Monocytes Percent Auto 12.1 % (2-11); Neutrophils Absolute Auto 2.1 x10*3/uL (2.0-8.3); Neutrophils Percent Auto 56.5 % (45-73); Platelet Count 137 X10*3/uL (160-400); Red Blood Count 2.89 X10*6/uL (4.60-5.80); Red Cell Distribution Width 16.6 % (11.0-16.0); White Blood Count 3.8 X10*3/uL (4.8-10.8)
[2022-12-13 10:55] LABS: NRBC Pct Auto 2.6 /100WBC (0.0-0.2)
[2022-12-13 11:25] LABS: Alanine Aminotransferase 27 U/L (0-40); Albumin Level 4.1 g/dL (3.5-5.0); Alkaline Phosphatase 306 U/L (39-117); Anion Gap 15 (12-20); Aspartate Amino Transferase 38 U/L (5-37); Bilirubin Total 0.6 mg/dL (0.0-1.0); Blood Urea Nitrogen 25 mg/dL (9-16); Calcium 8.5 mg/dL (8.4-10.2); Carbon Dioxide 24 mmol/L (22-29); Chloride 108 mmol/L (96-108); Creatinine Clr Calc Pharmacy 65.6; Estimated Glomerular Filt Rate > 60; Glucose Random 166 mg/dL (60-115); Potassium 4.2 mmol/L (3.3-5.1); Sodium 143 mmol/L (135-145); Total Protein 6.4 g/dL (6.5-8.0)
[2022-12-13 15:36] LABS: Prostate Specific Antigen 246.48 ng/mL (<0.05-4.0)
[2022-12-14 10:02] VITALS: BP 139/66; PULSE 93; TEMP 36.6; O2SAT 98; BMI 27.8
--- NOTE | 2022-12-14 10:09 | P.PNHO-ONC_ITS ---
Medical Summary - Medical Summary Date of Service: 12/14/22 Chief complaint: Follow up Primary Care Provider: Héctor Perla MD Medical Summary: DIAGNOSIS: Mr. Morgan was diagnosed with prostate cancer in 2006. THERAPY: 1. He underwent radical retropubic prostatectomy with bilateral pelvic lymphadenectomy on March 31, 2007. He was staged as a T3a [place]'s 4 + 3 prostate adenocarcinoma. 2. He underwent ERBT postoperatively in 2007 for a rising PSA. 3. He was diagnosed with metastatic disease, bony metastasis sometime in 2011 and has been on hormonal manipulation under the care of his urologist Dr. Oreilly. Repeat imaging: Restaging with a PET scan May 14, 2014 showed mild hypermetabolic activity in the right L2 pedicle SUV of 3.4, T11, T12 and T10 SUV of 5.28, and T5, T4 and T3 vertebrae with only residual sites of disease. No additional hypermetabolic activity in the skeleton, and no lymphadenopathy. Diffuse sclerotic lesions throughout cervical, dorsal, lumbar sacral spine, iliac bones and bilateral ribs consistent with old metastatic disease. PSA on May 02, 2014, 25.6 and total testosterone less than 1 ng/dL. 4. After oncology consultation in apr 2014, patient started Denosumab (Xgeva)120 mg subcu monthly, since June 02, 2014. 5. Because of rising PSA noted in July 2014 when it reggie 61, the patient was taken off Casodex. 6. The patient started Xtandi or enzalutamide at a dose of 160 mg once daily on October 14, 2014. 7. Started Xofigo (radium 223)dose of 55 KBq/ per kilo every 4 weeks for 6 doses on 04/05/16. 8. Received palliative radiotherapy to C2 vertebral body at [facility] [place] in June 2017 because of increasing uptake on PET scan worrisome for metastasis. 9. He started zytiga Jul 2017 to Sep 2017. Discontinued for rising PSA. 10. He then received 6 cycles Taxotere from 10/25/17 to January 2018. MSI status on tumor, showed preserved expression of DNA mismatch repair proteins indicating lack of microsatellite instability. Patient?s genetic test result , extended my Risk genetic panel testing was negative. 11. Ketoconazole for 1 month apr/2017. 12. Was seen at [facility] by Dr. Jaqueline Ayala for second opinion as well as consideration of clinical trials, was recommended clinical trial with olaparib +/- Cederinib. If he decides against trial, options would be to reconsider Zytiga, chemotherapy with Cabazitaxel +/- Carboplatinum or Apalutamide. 13. Was on Apalutamide 240 mg once a day for about 3 months. Rising PSA. 14. Switched to Zytiga 1000 mg once a day with prednisone 5 mg b.i.d. from end of December 2018. 15. Discontinued 03/14/2019 because of rising PSA. 16. Started Cabazitaxel March 2019. Treated for Legionella pneumonia after cycle 1 17. Switched to Xtandi in September 2020 18. Started back on docetaxel but added carboplatin since 05/19/2021 because of progressive disease. Olaparib was not approved by insurance carrier. BRCA mutation is negative, Homologous recombination repair gene mutation to be performed if possible. He underwent iliac crest biopsy at the site of bony lesion, however, this was negative for any malignant cells. PSMA PET-CT was performed 08/04/2021, he has PSMA avid disease besides extensive bone metastasis he has supraclavicular and chest lymph nodes. He was hoping to receive Kirsten labeled PSMA-617 for PSMA positive tumors/metastasis, unfortunately it was not commercially available although FDA approved. He was going a to [facility] where he was initially felt to be a candidate to receive this treatment. Subsequently he was told about bone marrow suppression as he received previous radium treatment. He was recommended either enrollment into a clinical trial or resuming docetaxel/carboplatin which he was on until late 2020. Interval History Interval history: Patient is here in follow-up. He feels much weaker and tired compared to last few months. He denies exertional shortness of breath, no headache or dizziness. No nausea or emesis. No loss of appetite. Other than minor aches in his hand joints, he has no back pain or significant hip pain. He denies any fever or chills. Review of Systems - Constitutional Reports as per HPI, Reports fatigue, Reports malaise, Denies night sweats, D enies weight loss - Cardiovascular Reports no additional cardiovascular complaints - Respiratory Reports no additional respiratory complaints - Gastrointestinal Reports no additional gastrointestinal complaints - Neurologic Reports no additional neurologic complaints, Denies headache(s) [facility] Medical History: Medical History (Last Reviewed 12/14/22 @ 10:04 by Ирина Spence) Acquired hypothyroidism Ascending aorta dilatation COVID-19 vaccine series completed Diabetes mellitus Family history of anesthesia complication GERD without esophagitis History of chemotherapy Legionella pneumonia Non-rheumatic aortic regurgitation Overweight (BMI 25.0-29.9) Port-A-Cath in place Primary osteoarthritis of right knee 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 Mother No problems noted. Surgical History: Surgical History (Last Reviewed 12/14/22 @ 10:04 by Ирина Spence) H/O colonoscopy History of appendectomy History of left inguinal hernia repair Onset Date: ~02/2011 History of prostatectomy Onset Date: ~03/31/07 History of shoulder surgery History of total right knee replacement Hx of bilateral cataract extraction Social History: Social History (Last Reviewed 12/14/22 @ 10:04 by Ирина Spence) Living Situation History: Household Members: Significant Other Housing: House Are you a primary resident care director to a significant other at home: Yes Are you a primary resident care director to a significant other at home comment: , bedridden ,Alzheimer's, on Hospice Do you presently have visiting nurse or other home services: Yes Do you presently have visiting nurse or other home services comment: Hospice nurse and [employer] 9-1 Alcohol History Details: 1. How often do you have a drink containing alcohol?: b. Monthly or less 2. How many drinks containing alcohol do you have on a typical day when you are drinking?: a. 1 or 2 Tobacco History: Patient Tobacco Use Status: Former Tobacco user Tobacco use type: Cigarette Smoke Quit Date: e-Cigarette/Vaping Use: Never Used Second Hand Smoke Exposure: Yes Substance Use History: Use of substances other than those prescribed or required for medical reasons : No Domestic Abuse History: Have you been hit, kicked, punched, or otherwise hurt by someone within the past year? If so, by whom?: No Do you feel safe in your current relationship?: Yes Advance Directives: Advance Directives Date on File: 05/10/22 Homicidal Assessment: Do you have thoughts of harming others: None Do you have a plan to hurt others: No Plan Do you have the means to hurt others: No Nutrition Assessment: Recently lost weight without trying: No Occupation Assessmet: service: No Current occupational status: retired Home Medications and Allergies Current Medications: Current Medications Denosumab (Denosumab 120 Mg/1.7 Ml Vial) 120 mg SUBCUT ONCE RAIMUNDO Stop: 12/14/22 23:59 Home Medications Medication Instructions Recorded Confirmed Type denosumab 120 mg/1.7 mL (70 mg/mL) 120 mg subcut Q4W 07/28/20 12/14/22 History subcutaneous solution (Xgeva) vit C 250 mg-vit E 90 mg-zinc 40 1 tab PO QAM 12/08/21 12/14/22 History mg-copper 1 [id number] capsule (PreserVision AREDS-2) dexamethasone 4 mg tablet 4 mg PO BID 02/18/22 12/14/22 History leuprolide acetate (6 month) 45 mg 45 mg subcut [id number] 03/31/22 12/14/22 History (6 month) subcutaneous syringe (Arav) ondansetron HCl 4 mg tablet 4 mg PO Q6H PRN nausea 11/28/22 12/14/22 History Allergies Allergy/AdvReac Type Severity Reaction Status Date / Time No Known Allergies Allergy Verified 11/28/22 12:37 Exam Vital signs: Vital Signs Temp 97.8 F 12/14/22 10:02 Pulse 93 12/14/22 10:02 Resp 14 10/11/22 10:06 BP 139/66 12/14/22 10:02 Pulse Ox 98 12/14/22 10:02 O2 Del Method 12/14/22 10:02 Intake & Output 12/13/22 12/14/22 12/14/22 18:59 06:59 18:59 Other: Weight 85.5 kg Windfall Weight in Grams 18634 Weight 85.5 kg BMI result Body Mass Index 27.8 - Constitutional Present: no acute distress - Routine HEENT Exam Head: Present: normal inspection - Routine Neck Exam Present: full ROM. Absent: lymphadenopathy - Routine Respiratory Exam Present: CTAB - Routine Cardiovascular Exam Cardiovascular: Present: RRR, S1, S2 - Routine Abdominal Exam Present: soft - Routine Extremities Exam Present: full ROM, joint swelling. Absent: calf tenderness, pedal edema, tenderness - Routine Skin Exam Present: intact. Absent: cyanosis, erythema Data - Labs CBC & Chem 7: 12/13/22 10:40 12/13/22 10:40 - Imaging Radiologist's impression: ITS Impressions Chest X-Ray 07/28/20 11:50 IMPRESSION: No evidence for acute disease in the chest. Sclerotic bone disease similar to previous exams. EXAMINATION: Right shoulder x-ray CLINICAL INFORMATION: Pain COMPARISON: None. TECHNIQUE: 4 views of the right shoulder FINDINGS: Bone alignment is normal. No fracture or dislocation is seen. The glenohumeral joint is normal. There is arthritis at the acromioclavicular joint. There is evidence of diffuse sclerotic bone disease. Soft tissues are unremarkable. IMPRESSION: Sclerotic bone disease. Arthritis at the acromioclavicular joint. EXAMINATION: Right knee x-ray CLINICAL INFORMATION: Pain COMPARISON: None. TECHNIQUE: 4 views right knee FINDINGS: Bone alignment is normal. No fracture or dislocation is seen. The joint spaces are normal. There is no joint effusion. IMPRESSION: Unremarkable exam. Knee X-Ray 07/28/20 11:50 IMPRESSION: No evidence for acute disease in the chest. Sclerotic bone disease similar to previous exams. EXAMINATION: Right shoulder x-ray CLINICAL INFORMATION: Pain COMPARISON: None. TECHNIQUE: 4 views of the right shoulder FINDINGS: Bone alignment is normal. No fracture or dislocation is seen. The glenohumeral joint is normal. There is arthritis at the acromioclavicular joint. There is evidence of diffuse sclerotic bone disease. Soft tissues are unremarkable. IMPRESSION: Sclerotic bone disease. Arthritis at the acromioclavicular joint. EXAMINATION: Right knee x-ray CLINICAL INFORMATION: Pain COMPARISON: None. TECHNIQUE: 4 views right knee FINDINGS: Bone alignment is normal. No fracture or dislocation is seen. The joint spaces are normal. There is no joint effusion. IMPRESSION: Unremarkable exam. Shoulder X-Ray 07/28/20 11:50 IMPRESSION: No evidence for acute disease in the chest. Sclerotic bone disease similar to previous exams. EXAMINATION: Right shoulder x-ray CLINICAL INFORMATION: Pain COMPARISON: None. TECHNIQUE: 4 views of the right shoulder FINDINGS: Bone alignment is normal. No fracture or dislocation is seen. The glenohumeral joint is normal. There is arthritis at the acromioclavicular joint. There is evidence of diffuse sclerotic bone disease. Soft tissues are unremarkable. IMPRESSION: Sclerotic bone disease. Arthritis at the acromioclavicular joint. EXAMINATION: Right knee x-ray CLINICAL INFORMATION: Pain COMPARISON: None. TECHNIQUE: 4 views right knee FINDINGS: Bone alignment is normal. No fracture or dislocation is seen. The joint spaces are normal. There is no joint effusion. IMPRESSION: Unremarkable exam. Assessment and Plan Patient Active problem list reviewed?: Yes (1) Prostate cancer metastatic to bone Status: Chronic Assessment and plan: 1. This is a 82 year-old male with metastatic Prostate Cancer, Bone Metastases diagnosed in 2012. pMSI. BRCA 10/05 negative. He is on LHRH agonist q 6 months. On monthly denosumab. He has been on chemotherapy and different hormonal therapies from July 2014. Patient resumed docetaxel with carboplatin in January 2022 after a 5 month hiatus during which he underwent right knee replacement. He was hoping to receive Kirsten labeled PSMA-617 for PSMA positive tumors/metastasis, he was told about bone marrow suppression as he received previous radium treatment. He was recommended either enrollment into a clinical trial or resuming docetaxel/carboplatin which he was on until late 2020. He was seen by Dr. Jaqueline Ayala at [facility] 2021, he has been recommended Cabazitaxel or mitoxantrone on progression. They did discuss lutetium therapy but this would be very intense therapy since he is at risk of severe cytopenias and would need transfusion support. It would also be difficult for him to travel to [place] as his is invalid. PSMA PET-CT performed at [facility] on 10/07/2022 showed multifocal abnormal osseous uptake consistent with widespread bony metastasis. Uptake noted throughout cervical, thoracic, lumbar spine, both shoulders and scapula, multiple ribs, pelvic bones and proximal femurs. Max SUV 20.2 in the left side of sacrum. Metabolically active left axillary lymphadenopathy, metabolically active azygos node as well as small nodes in the left of mid esophagus. All the lymph nodes appear to be small. No uptake in the brain mentioned. 2. Rght earhearing loss balance problems. 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 There was also 5 mm enhancing nodule within the left superior vermis of the left cerebellum. This was done at outside facility. He went through course of high-dose steroids. 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 He is closely followed by ENT specialist. 3. Normocytic anemia which is probably related to bone marrow involvement with his tumor. He is quite symptomatic with shortness of breath and generalized weakness. He will be transfused 2 units PRBC this week. We again discussed resuming chemotherapy as he has progressive disease. He will think about it. Follow-up in 4 weeks. - Time Spent With Patient Time Spent with Patient (in minutes): 20
--- NOTE | 2022-12-14 10:36 | MHC.HEMONC ---
I sat in with pt as he met with Dr Gonzalez. He has symptomatic anemia and 2 units RBC being ordered. He will receive on Monday. T and S to be done today. He will be deciding after transfusion on doing some more treatment as his disease is progressing according to Dr Gonzalez.
--- NOTE | 2022-12-14 10:40 | MHC.HEMONCMA ---
Patient seen today for followup prostate ca, VSS, injection today, 1 month followup.
--- NOTE | 2022-12-14 10:55 | MHC.HEMONC ---
Addendum entered by Jama Gipson RN 12/14/22 11:16: Nurse noted that no PA is required for pt's Denosumab/Xgeva Original Note: Pt was in for Xgeva inj and Onc f/u, labs reviewed, Ca level of 8.5, Hgb of 9.0. Nurse admin Xgeva 120mg SC to pt's RUE, which he tolerated well. Pt was also booked to receive blood transfusion this coming 12/16/22, type and screen was drawn today. Pt was given d/c ppw, to return on 12/16.
[2022-12-16] VITALS (7 sets, daily range): BP systolic 116–156; BP diastolic 56–67; PULSE 70–94; RESP 17–18; TEMP 36.1–36.6; O2SAT 99; BMI 28.0
--- NOTE | 2022-12-16 18:09 | MHC.HEMONC ---
Pt came in today for sched blood transfusion, Hgb was 9.0 earlier in the week, but he was reporting feeling exhausted and weak, Dr. Gonzalez ordered pt to receive x2 units PRBC today, Type and Screen was performed on 12/14. Nurse reviewed common signs/symptoms of transfusion reaction w/ pt, pt and Dr. Gonzalez both signed consent to transfuse form which was left for scanning into EMR. Blood Bank arrived to band pt. Nurse accessed pt's R chest implanted port in sterile procedure, found positive blood return, pt's LS were CTA, pt's VS remained stable as he was transfused 2 units PRBC, tolerated both transfusions w/out incident, no evidence of reaction or side effects. Pt's port was flushed w/ NS and heparin 500 units, then de-accessed. Pt was given d/c packet, to return in 1 month for next Xgeva injection, to have labs drawn the day prior.
[2023-01-10 10:56] LABS: Alanine Aminotransferase 34 U/L (0-40); Albumin Level 4.2 g/dL (3.5-5.0); Alkaline Phosphatase 302 U/L (39-117); Anion Gap 15 (12-20); Aspartate Amino Transferase 33 U/L (5-37); Bilirubin Total 0.6 mg/dL (0.0-1.0); Blood Urea Nitrogen 23 mg/dL (9-16); Calcium 8.6 mg/dL (8.4-10.2); Carbon Dioxide 24 mmol/L (22-29); Chloride 106 mmol/L (96-108); Creatinine Clr Calc Pharmacy 63.4; Estimated Glomerular Filt Rate > 60; Glucose Random 216 mg/dL (60-115); Potassium 4.5 mmol/L (3.3-5.1); Sodium 140 mmol/L (135-145); Total Protein 6.4 g/dL (6.5-8.0)
--- NOTE | 2023-01-10 16:23 | MHC.HEMONC ---
Pt was in today for pre-Xgeva labs, had his blood drawn peripherally from arm, Ca resulted 8.6 today. Pt departed, to return tomorrow for Xgeva inj.
--- NOTE | 2023-01-11 10:51 | PM.HEMONCPN ---
Medical Summary - Medical Summary Date of Service: 01/11/23 Chief complaint: Generalized weakness Primary Care Provider: Héctor Perla MD Medical Summary: DIAGNOSIS: Mr. Morgan was diagnosed with prostate cancer in 2006. THERAPY: 1. He underwent radical retropubic prostatectomy with bilateral pelvic lymphadenectomy on March 31, 2007. 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 2. He underwent ERBT postoperatively in 2007 for a rising PSA. 3. He was diagnosed with metastatic disease, bony metastasis sometime in 2011 and has been on hormonal manipulation under the care of his urologist Dr. Oreilly. Repeat imaging: Restaging with a PET scan May 14, 2014 showed mild hypermetabolic activity in the right L2 pedicle SUV of 3.4, T11, T12 and T10 SUV of 5.28, and T5, T4 and T3 vertebrae with only residual sites of disease. No additional hypermetabolic activity in the skeleton, and no lymphadenopathy. Diffuse sclerotic lesions throughout cervical, dorsal, lumbar sacral spine, iliac bones and bilateral ribs consistent with old metastatic disease. PSA on May 02, 2014, 25.6 and total testosterone less than 1 ng/dL. 4. After oncology consultation in apr 2014, patient started Denosumab (Xgeva)120 mg subcu monthly, since June 02, 2014. 5. Because of rising PSA noted in July 2014 when it reggie 61, the patient was taken off Casodex. 6. The patient started Xtandi or enzalutamide at a dose of 160 mg once daily on October 14, 2014. 7. Started Xofigo (radium 223)dose of 55 KBq/ per kilo every 4 weeks for 6 doses on 04/05/16. 8. Received palliative radiotherapy to C2 vertebral body at [facility] in June 2017 because of increasing uptake on PET scan worrisome for metastasis. 9. He started zytiga Jul 2017 to Sep 2017. Discontinued for rising PSA. 10. He then received 6 cycles Taxotere from 10/25/17 to January 2018. MSI status on tumor, showed preserved expression of DNA mismatch repair proteins indicating lack of microsatellite instability. Patient?s genetic test result , extended my Risk genetic panel testing was negative. 11. Ketoconazole for 1 month apr/2017. 12. Was seen at [facility] by Dr. Jaqueline Ayala for second opinion as well as consideration of clinical trials, was recommended clinical trial with olaparib +/- Cederinib. If he decides against trial, options would be to reconsider Zytiga, chemotherapy with Cabazitaxel +/- Carboplatinum or Apalutamide. 13. Was on Apalutamide 240 mg once a day for about 3 months. Rising PSA. 14. Switched to Zytiga 1000 mg once a day with prednisone 5 mg b.i.d. from end of December 2018. 15. Discontinued 03/14/2019 because of rising PSA. 16. Started Cabazitaxel March 2019. Treated for Legionella pneumonia after cycle 1 17. Switched to Xtandi in September 2020 18. Started back on docetaxel but added carboplatin since 05/19/2021 because of progressive disease. Olaparib was not approved by insurance carrier. BRCA mutation is negative, Homologous recombination repair gene mutation to be performed if possible. He underwent iliac crest biopsy at the site of bony lesion, however, this was negative for any malignant cells. PSMA PET-CT was performed 08/04/2021, he has PSMA avid disease besides extensive bone metastasis he has supraclavicular and chest lymph nodes. He was hoping to receive Kirsten labeled PSMA-617 for PSMA positive tumors/metastasis, unfortunately it was not commercially available although FDA approved. He was going a to [facility] where he was initially felt to be a candidate to receive this treatment. Subsequently he was told about bone marrow suppression as he received previous radium treatment. He was recommended either enrollment into a clinical trial or resuming docetaxel/carboplatin which he was on until late 2020. Interval History Interval history: Patient is here in follow-up. He feels much weaker and tired compared to last few months. He denies exertional shortness of breath, no headache or dizziness. No nausea or emesis. No loss of appetite. He reports worsening pains in his joints, shoulder, upper back areas. He is wondering if he is becoming anemic again. He is considering chemotherapy once again. Review of Systems - Constitutional Reports as per HPI, Denies anorexia, Denies malaise - Cardiovascular Reports no additional cardiovascular complaints - Respiratory Reports no additional respiratory complaints - Gastrointestinal Reports no additional gastrointestinal complaints - Neurologic Reports no additional neurologic complaints, Denies headache(s) [facility] Medical History: Medical History (Last Reviewed 12/16/22 @ 09:56 by Jama Gipson RN) Acquired hypothyroidism Ascending aorta dilatation COVID-19 vaccine series completed Diabetes mellitus Family history of anesthesia complication GERD without esophagitis History of chemotherapy Legionella pneumonia Non-rheumatic aortic regurgitation Overweight (BMI 25.0-29.9) Port-A-Cath in place Primary osteoarthritis of right knee 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 Mother No problems noted. Surgical History: Surgical History (Last Reviewed 12/16/22 @ 09:56 by Jama Gipson RN) H/O colonoscopy History of appendectomy History of left inguinal hernia repair Onset Date: ~02/2011 History of prostatectomy Onset Date: ~03/31/07 History of shoulder surgery History of total right knee replacement Hx of bilateral cataract extraction Social History: Social History (Last Reviewed 12/16/22 @ 09:56 by Jama Gipson RN) Living Situation History: Household Members: Significant Other Housing: House Are you a primary health care manager to a significant other at home: Yes Are you a primary health care manager to a significant other at home comment: , bedridden ,Alzheimer's, on Hospice Do you presently have visiting nurse or other home services: Yes Do you presently have visiting nurse or other home services comment: Hospice nurse and [employer] 9-1 Alcohol History Details: 1. How often do you have a drink containing alcohol?: b. Monthly or less 2. How many drinks containing alcohol do you have on a typical day when you are drinking?: a. 1 or 2 Tobacco History: Patient Tobacco Use Status: Former Tobacco user Tobacco use type: Cigarette Smoke Quit Date: e-Cigarette/Vaping Use: Never Used Second Hand Smoke Exposure: Yes Substance Use History: Use of substances other than those prescribed or required for medical reasons: No Domestic Abuse History: Have you been hit, kicked, punched, or otherwise hurt by someone within the past year? If so, by whom?: No Do you feel safe in your current relationship?: Yes Advance Directives: Advance Directives Date on File: 05/10/22 Homicidal Assessment: Do you have thoughts of harming others: None Do you have a plan to hurt others: No Plan Do you have the means to hurt others: No Nutrition Assessment: Recently lost weight without trying: No Occupation Assessmet: service: No Current occupational status: retired Home Medications and Allergies Current Medications: Current Medications Denosumab (Denosumab 120 Mg/1.7 Ml Vial) 120 mg SUBCUT ONCE RAIMUNDO Stop: 01/11/23 23:59 Last Admin: 01/11/23 10:38 Dose: 120 mg Home Medications Medication Instructions Recorded Confirmed Type denosumab 120 mg/1.7 mL (70 mg/mL) 120 mg subcut Q4W 07/28/20 12/14/22 History subcutaneous solution (Xgeva) vit C 250 mg-vit E 90 mg-zinc 40 1 tab PO QAM 12/08/21 12/14/22 History mg-copper 1 [id number] capsule (PreserVision AREDS-2) dexamethasone 4 mg tablet 4 mg PO BID 02/18/22 12/14/22 History leuprolide acetate (6 month) 45 mg 45 mg subcut [id number] 03/31/22 12/14/22 History (6 month) subcutaneous syringe (Eligard) ondansetron HCl 4 mg tablet 4 mg PO Q6H PRN nausea 11/28/22 12/14/22 History Allergies Allergy/AdvReac Type Severity Reaction Status Date / Time No Known Allergies Allergy Verified 11/28/22 12:37 Exam Vital signs: Vital Signs Temp 97.5 F 12/16/22 14:00 Pulse 72 12/16/22 14:00 Resp 18 12/16/22 14:00 BP 132/64 12/16/22 14:00 Pulse Ox 99 12/16/22 09:36 O2 Del Method Room Air 12/16/22 09:36 Weight 86.2 kg BMI result Body Mass Index 28.0 - Constitutional Present: no acute distress - Routine HEENT Exam Head: Present: normal inspection - Routine Neck Exam Present: full ROM. Absent: lymphadenopathy - Routine Respiratory Exam Present: CTAB - Routine Cardiovascular Exam Cardiovascular: Present: RRR, S1, S2 - Routine Abdominal Exam Present: soft - Routine Extremities Exam Present: full ROM, joint swelling. Absent: calf tenderness, pedal edema, tenderness - Routine Skin Exam Present: intact. Absent: cyanosis, erythema Data - Labs CBC & Chem 7: 01/11/23 11:15 04/18/23 10:22 - Imaging Radiologist's impression: ITS Impressions Chest X-Ray 07/28/20 11:50 IMPRESSION: No evidence for acute disease in the chest. Sclerotic bone disease similar to previous exams. EXAMINATION: Right shoulder x-ray CLINICAL INFORMATION: Pain COMPARISON: None. TECHNIQUE: 4 views of the right shoulder FINDINGS: Bone alignment is normal. No fracture or dislocation is seen. The glenohumeral joint is normal. There is arthritis at the acromioclavicular joint. There is evidence of diffuse sclerotic bone disease. Soft tissues are unremarkable. IMPRESSION: Sclerotic bone disease. Arthritis at the acromioclavicular joint. EXAMINATION: Right knee x-ray CLINICAL INFORMATION: Pain COMPARISON: None. TECHNIQUE: 4 views right knee FINDINGS: Bone alignment is normal. No fracture or dislocation is seen. The joint spaces are normal. There is no joint effusion. IMPRESSION: Unremarkable exam. Knee X-Ray 07/28/20 11:50 IMPRESSION: No evidence for acute disease in the chest. Sclerotic bone disease similar to previous exams. EXAMINATION: Right shoulder x-ray CLINICAL INFORMATION: Pain COMPARISON: None. TECHNIQUE: 4 views of the right shoulder FINDINGS: Bone alignment is normal. No fracture or dislocation is seen. The glenohumeral joint is normal. There is arthritis at the acromioclavicular joint. There is evidence of diffuse sclerotic bone disease. Soft tissues are unremarkable. IMPRESSION: Sclerotic bone disease. Arthritis at the acromioclavicular joint. EXAMINATION: Right knee x-ray CLINICAL INFORMATION: Pain COMPARISON: None. TECHNIQUE: 4 views right knee FINDINGS: Bone alignment is normal. No fracture or dislocation is seen. The joint spaces are normal. There is no joint effusion. IMPRESSION: Unremarkable exam. Shoulder X-Ray 07/28/20 11:50 IMPRESSION: No evidence for acute disease in the chest. Sclerotic bone disease similar to previous exams. EXAMINATION: Right shoulder x-ray CLINICAL INFORMATION: Pain COMPARISON: None. TECHNIQUE: 4 views of the right shoulder FINDINGS: Bone alignment is normal. No fracture or dislocation is seen. The glenohumeral joint is normal. There is arthritis at the acromioclavicular joint. There is evidence of diffuse sclerotic bone disease. Soft tissues are unremarkable. IMPRESSION: Sclerotic bone disease. Arthritis at the acromioclavicular joint. EXAMINATION: Right knee x-ray CLINICAL INFORMATION: Pain COMPARISON: None. TECHNIQUE: 4 views right knee FINDINGS: Bone alignment is normal. No fracture or dislocation is seen. The joint spaces are normal. There is no joint effusion. IMPRESSION: Unremarkable exam. Assessment and Plan Patient Active problem list reviewed?: Yes (1) Prostate cancer metastatic to bone Status: Chronic Assessment and plan: 1. This is a 82 year-old male with metastatic Prostate Cancer, Bone Metastases diagnosed in 2012. pMSI. BRCA 10/05 negative. He is on LHRH agonist q 6 months. On monthly denosumab. He has been on chemotherapy and different hormonal therapies from July 2014. Patient resumed docetaxel with carboplatin in January 2022 after a 5 month hiatus during which he underwent right knee replacement. He was hoping to receive Kirsten labeled PSMA-617 for PSMA positive tumors/metastasis, he was told about bone marrow suppression as he received previous radium treatment. He was recommended either enrollment into a clinical trial or resuming docetaxel/carboplatin which he was on until late 2020. He was seen by Dr. Jaqueline Ayala at [facility] 2021, he has been recommended Cabazitaxel or mitoxantrone on progression. They did discuss lutetium therapy but this would be very intense therapy since he is at risk of severe cytopenias and would need transfusion support. It would also be difficult for him to travel to [place] as his is invalid. PSMA PET-CT performed at [facility] on 10/07/2022 showed multifocal abnormal osseous uptake consistent with widespread bony metastasis. Uptake noted throughout cervical, thoracic, lumbar spine, both shoulders and scapula, multiple ribs, pelvic bones and proximal femurs. Max SUV 20.2 in the left side of sacrum. Metabolically active left axillary lymphadenopathy, metabolically active azygos node as well as small nodes in the left of mid esophagus. All the lymph nodes appear to be small. No uptake in the brain mentioned. 2. Rght earhearing loss balance problems. 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 There was also 5 mm enhancing nodule within the left superior vermis of the left cerebellum. This was done at outside facility. He went through course of high-dose steroids. 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 He is closely followed by ENT specialist. 3. Normocytic anemia which is probably related to bone marrow involvement with his tumor. He received 2 units PRBC in November 2022. Anemia has improved and is stable. Today we discussed trial of mitoxantrone for progressive disease. It is possible that he would have more side effects and have no response to treatment. He will think about this. Follow-up in 4 weeks. - Time Spent With Patient Time Spent with Patient (in minutes): 15
[2023-01-11 11:00] VITALS: BP 113/61; PULSE 92; RESP 18; TEMP 36.4; O2SAT 98
[2023-01-11 11:23] LABS: Hematocrit 32.4 % (42.0-52.0); Hemoglobin 10.4 g/dl (14.0-18.0); Mean Corpuscular HGB Conc 32.1 g/dl (31.0-36.0); Mean Corpuscular Hemoglobin 30.7 pg (27.0-33.0); Mean Corpuscular Volume 95.6 fL (80.0-98.0); Mean Platelet Volume 8.9 fL (9.4-12.4); Platelet Count 160 X10*3/uL (160-400); Red Blood Count 3.39 X10*6/uL (4.60-5.80); Red Cell Distribution Width 17.1 % (11.0-16.0); White Blood Count 3.4 X10*3/uL (4.8-10.8)
[2023-01-11 11:24] LABS: NRBC Pct Auto 1.2 /100WBC (0.0-0.2)
--- NOTE | 2023-01-11 16:23 | MHC.HEMONC ---
Pt here for monthly Denosumab. Labs were drawn 01/10/23. Calcium 8.6 Denosumab ordered and given. Pt also had concerns about his pain in neck rad down left arm that happens at night. Hurts when he wakes up and moves. He also c/o blurry vision when he looks up. Stated that he had cataract surgery in Jun or Jul and he has an appointment coming up with his eye doctor. He also wanted to know about his treatments and if he is going to start treatment again. Dr Gonzalez notified of pt concerns and she saw him as a follow up today. Pt will be starting Mitoxantrone. plan printed and given to Essie for PA. Chart started. Spoke with Shayla and she is aware. Plan teach next week. Pt will have monthly follow up with chemo per Dr Gonzalez. CBC today was 10.[address] Gonzalez aware and no new orders. This nurse called patient to let him know his CBC results and we will contact him about chemo teach next week. Pt agreeable to start new treatment.
--- NOTE | 2023-01-12 15:53 | HO.HEMONCPA ---
NO PA REQUIRED FOR MITOXANTRONE, AND PREDNISONE. DRUGS COVERED UNDER [facility]
--- NOTE | 2023-02-02 16:11 | MHC.HEMONC ---
Pt called to book C1D1 Mitoxantrone/prednisone teach and chemo same day. Pt booked for 02/08/23 10am teach and 1030 chemo tx. Pt aware and agreeable with time and date.
[2023-02-07 10:12] LABS: Hematocrit 29.9 % (42.0-52.0); Hemoglobin 9.5 g/dl (14.0-18.0); Mean Corpuscular HGB Conc 31.8 g/dl (31.0-36.0); Mean Corpuscular Hemoglobin 30.7 pg (27.0-33.0); Mean Corpuscular Volume 96.8 fL (80.0-98.0); Mean Platelet Volume 8.9 fL (9.4-12.4); Platelet Count 138 X10*3/uL (160-400); Red Blood Count 3.09 X10*6/uL (4.60-5.80); Red Cell Distribution Width 18.2 % (11.0-16.0); White Blood Count 3.5 X10*3/uL (4.8-10.8)
[2023-02-07 10:33] LABS: Alanine Aminotransferase 40 U/L (0-40); Albumin Level 4.1 g/dL (3.5-5.0); Alkaline Phosphatase 315 U/L (39-117); Anion Gap 14 (12-20); Aspartate Amino Transferase 35 U/L (5-37); Bilirubin Total 0.7 mg/dL (0.0-1.0); Blood Urea Nitrogen 20 mg/dL (9-16); Calcium 8.8 mg/dL (8.4-10.2); Carbon Dioxide 25 mmol/L (22-29); Chloride 107 mmol/L (96-108); Cholesterol 175 mg/dL; Estimated Glomerular Filt Rate > 60; Glucose Random 202 mg/dL (60-115); HDL Cholesterol 40 mg/dL; LDL Cholesterol Calculated 88 mg/dl; Potassium 4.5 mmol/L (3.3-5.1); Sodium 141 mmol/L (135-145); Total Protein 6.3 g/dL (6.5-8.0); Triglycerides 236 mg/dL
[2023-02-07 11:05] LABS: Band Neutrophils Percent 2 % (3-5); Basophils Percent Manual 1 % (0-2); Lymphocytes Absolute Manual 1.3 X10*3/uL (1.2-4.9); Lymphocytes Percent Manual 38 % (20-40); Metamyelocytes Absolute 0.1 X10*3/uL; Metamyelocytes Percent 2 %; Monocytes Absolute Manual 0.3 X10*3/uL (0.1-1.2); Monocytes Percent Manual 9 % (2-11); Neutrophils Absolute Manual 1.8 X10*3/uL (2.0-8.3); Neutrophils Percent Manual 48 % (45-73); Nucleated Red Blood Cells 4 /100WBC (0-0)
[2023-02-07 11:06] LABS: Platelet Estimate DECREASED (NORMAL); Polychromasia 1+ (0-2) /OIF; RBC Morphology NOTED; Tear Drop Cells 1+ (0-2) /OIF
[2023-02-07 11:07] LABS: Microcytosis 1+ (5-14) /OIF
[2023-02-07 11:08] LABS: Platelet Morphology Comment NORM
--- NOTE | 2023-02-07 12:00 | HE.PHANOTE ---
NEW CHEMO - MITOXANTRONE Recommended to get an ECHO prior to starting this medication. Patient is followed by cardiology with his most recent appt being on 11/26/22. Last ECHO 02/18/22. Patient already came in for labs today and is being treated tomorrow and unable to get a new ECHO prior to treatment. Since patient is being followed by cardiology and no change with LVEF in past years Dr. Gonzalez decided to treat patient and follow up with ECHO.
--- NOTE | 2023-02-07 17:28 | MHC.HEMONC ---
Pt was in today for pre-chemo labs and pre-Xgeva labs, had blood drawn peripherally. As pt appears week, suggestion was made we may need to draw type and screen the next day when he comes for new start, but pt's Hgb resulted 9.5, no indication for transfusion. Pt will return tomorrow for Xgeva inj and new start chemo. Dr. Gonzalez was informed pt is overdue for echo, agreed pt may be treated tomorrow and book echo before 2nd cycle.
[2023-02-08 10:10] VITALS: BP 130/74; PULSE 108; RESP 18; TEMP 36.3; O2SAT 94; BMI 28.1
[2023-02-08] MEDS: diphenhydrAMINE HCL 25 MG CAPSULE PO (11:05)
[2023-02-08] MEDS: Ondansetron ODT 8 MG TAB.RAPDIS TRANSLINGU (11:05)
[2023-02-08] MEDS: Acetaminophen 325 MG TABLET 650 MG PO (11:05)
[2023-02-08] MEDS: dexAMETHasone sod phosphate/NS 12 MG/50 ML PIGGYBACK 200 MG IV (11:05)
[2023-02-08] MEDS: Famotidine 20 MG TABLET PO (11:06)
[2023-02-08] MEDS: Heparin Sodium,Porcine Flush 500 UNIT/5 ML SYRINGE IVFLUSH (11:07)
--- NOTE | 2023-02-08 11:21 | MHC.HEMONCMA ---
Echo ordered and entered in [facility]
--- NOTE | 2023-02-08 12:53 | HO.HEMONCPA ---
Addendum entered by Essie Dudley 02/08/23 16:18: NO PA REQUIRED FOR NEULASTA ON-PRO, DENOSUMAB & MITOXANTRONE CALL REF# [id number] on 02/08/23 at 12:52pm to [facility] [employer] Original Note: NO PA REQUIRED FOR NEULASTA, DENOSUMAB & MITOXANTRONE CALL REF# [email or web address] on 02/08/23 at 12:52pm to [facility] [employer]ANCE [employer]AN
--- NOTE | 2023-02-08 12:59 | PM.HEMONCPN ---
Medical Summary - Medical Summary Date of Service: 02/08/23 Chief complaint: Follow-up and scheduled treatment Primary Care Provider: Héctor Perla MD Medical Summary: DIAGNOSIS: Mr. Morgan was diagnosed with prostate cancer in 2006. THERAPY: 1. He underwent radical retropubic prostatectomy with bilateral pelvic lymphadenectomy on March 31, 2007. 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 2. He underwent ERBT postoperatively in 2007 for a rising PSA. 3. He was diagnosed with metastatic disease, bony metastasis sometime in 2011 and has been on hormonal manipulation under the care of his urologist Dr. Oreilly. Repeat imaging: Restaging with a PET scan May 14, 2014 showed mild hypermetabolic activity in the right L2 pedicle SUV of 3.4, T11, T12 and T10 SUV of 5.28, and T5, T4 and T3 vertebrae with only residual sites of disease. No additional hypermetabolic activity in the skeleton, and no lymphadenopathy. Diffuse sclerotic lesions throughout cervical, dorsal, lumbar sacral spine, iliac bones and bilateral ribs consistent with old metastatic disease. PSA on May 02, 2014, 25.6 and total testosterone less than 1 ng/dL. 4. After oncology consultation in apr 2014, patient started Denosumab (Xgeva)120 mg subcu monthly, since June 02, 2014. 5. Because of rising PSA noted in July 2014 when it reggie 61, the patient was taken off Casodex. 6. The patient started Xtandi or enzalutamide at a dose of 160 mg once daily on October 14, 2014. 7. Started Xofigo (radium 223)dose of 55 KBq/ per kilo every 4 weeks for 6 doses on 04/05/16. 8. Received palliative radiotherapy to C2 vertebral body at [facility] in June 2017 because of increasing uptake on PET scan worrisome for metastasis. 9. He started zytiga Jul 2017 to Sep 2017. Discontinued for rising PSA. 10. He then received 6 cycles Taxotere from 10/25/17 to January 2018. MSI status on tumor, showed preserved expression of DNA mismatch repair proteins indicating lack of microsatellite instability. Patient?s genetic test result , extended my Risk genetic panel testing was negative. 11. Ketoconazole for 1 month apr/2017. 12. Was seen at [facility] by Dr. Jaqueline Ayala for second opinion as well as consideration of clinical trials, was recommended clinical trial with olaparib +/- Cederinib. If he decides against trial, options would be to reconsider Zytiga, chemotherapy with Cabazitaxel +/- Carboplatinum or Apalutamide. 13. Was on Apalutamide 240 mg once a day for about 3 months. Rising PSA. 14. Switched to Zytiga 1000 mg once a day with prednisone 5 mg b.i.d. from end of December 2018. 15. Discontinued 03/14/2019 because of rising PSA. 16. Started Cabazitaxel March 2019. Treated for Legionella pneumonia after cycle 1 17. Switched to Xtandi in September 2020 18. Started back on docetaxel but added carboplatin since 05/19/2021 because of progressive disease. Olaparib was not approved by insurance carrier. BRCA mutation is negative, Homologous recombination repair gene mutation to be performed if possible. He underwent iliac crest biopsy at the site of bony lesion, however, this was negative for any malignant cells. PSMA PET-CT was performed 08/04/2021, he has PSMA avid disease besides extensive bone metastasis he has supraclavicular and chest lymph nodes. He was hoping to receive Kirsten labeled PSMA-617 for PSMA positive tumors/metastasis, unfortunately it was not commercially available although FDA approved. He was going a to [facility] where he was initially felt to be a candidate to receive this treatment. Subsequently he was told about bone marrow suppression as he received previous radium treatment. He was recommended either enrollment into a clinical trial or resuming docetaxel/carboplatin which he was on until late 2020. Interval History Interval history: Patient is here in follow-up. He feels much weaker and tired compared to last few months. He is here for 1st cycle of mitoxantrone. He denies any recent infections. He goes for yearly checkup with tax accountant but he has never had an GA or been diagnosed with congestive heart failure. He gets nauseous at times but responds well to Zofran. Review of Systems - Constitutional Reports as per HPI, Reports fatigue, Reports lack of energy, Reports malaise - Cardiovascular Reports no additional cardiovascular complaints, Denies chest pain with activity, Denies fast heart rate, Denies foot swelling - Respiratory Reports no additional respiratory complaints, Denies cough, Denies pain with cough - Gastrointestinal Reports no additional gastrointestinal complaints - Neurologic Reports no additional neurologic complaints, Denies headache(s) [facility] Medical History: Medical History (Last Reviewed 12/16/22 @ 09:56 by Jama Gipson RN) Acquired hypothyroidism Ascending aorta dilatation COVID-19 vaccine series completed Diabetes mellitus Family history of anesthesia complication GERD without esophagitis History of chemotherapy Legionella pneumonia Non-rheumatic aortic regurgitation Overweight (BMI 25.0-29.9) Port-A-Cath in place Primary osteoarthritis of right knee 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 Mother No problems noted. Surgical History: Surgical History (Last Reviewed 12/16/22 @ 09:56 by Jama Gipson RN) H/O colonoscopy History of appendectomy History of left inguinal hernia repair Onset Date: ~02/2011 History of prostatectomy Onset Date: ~03/31/07 History of shoulder surgery History of total right knee replacement Hx of bilateral cataract extraction Social History: Social History (Last Reviewed 12/16/22 @ 09:56 by Jama Gipson RN) Living Situation History: Household Members: Significant Other Housing: House Are you a primary director long term care to a significant other at home: Yes Are you a primary director long term care to a significant other at home comment: , bedridden ,Alzheimer's, on Hospice Do you presently have visiting nurse or other home services: Yes Do you presently have visiting nurse or other home services comment: 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 How often do you have a drink containing alcohol?: b. Monthly or less 2. How many drinks containing alcohol do you have on a typical day when you are drinking?: a. 1 or 2 Tobacco History: Patient Tobacco Use Status: Former Tobacco user Tobacco use type: Cigarette Smoke Quit Date: e-Cigarette/Vaping Use: Never Used Second Hand Smoke Exposure: Yes Substance Use History: Use of substances other than those prescribed or required for medical reasons: No Domestic Abuse History: Have you been hit, kicked, punched, or otherwise hurt by someone within the past year? If so, by whom?: No Do you feel safe in your current relationship?: Yes Advance Directives: Advance Directives Date on File: 05/10/22 Homicidal Assessment: Do you have thoughts of harming others: None Do you have a plan to hurt others: No Plan Do you have the means to hurt others: No Nutrition Assessment: Recently lost weight without trying: No Occupation Assessmet: service: No Current occupational status: retired Home Medications and Allergies Current Medications: Current Medications Acetaminophen (Acetaminophen 325 Mg Tablet) 650 mg PO ONCE [facility] Stop: 02/08/23 23:59 Last Admin: 02/08/23 11:05 Dose: 650 mg Denosumab (Denosumab 120 Mg/1.7 Ml Vial) 120 mg SUBCUT ONCE [facility] Stop: 02/08/23 23:59 Last Admin: 02/08/23 12:42 Dose: 120 mg Diphenhydramine HCl (Diphenhydramine Hcl 25 Mg Capsule) 25 mg PO ONCE [facility] Stop: 02/08/23 23:59 Last Admin: 02/08/23 11:05 Dose: 25 mg Famotidine (Famotidine 20 Mg Tablet) 20 mg PO ONCE [facility] Stop: 02/08/23 23:59 Last Admin: 02/08/23 11:06 Dose: 20 mg Heparin Sodium (Porcine) (Heparin Sodium,Porcine Flush 500 Unit/5 Ml Syringe) 500 unit IVFLUSH ONCE [facility] Stop: 02/08/23 23:59 Last Admin: 02/08/23 11:07 Dose: 500 unit Dexamethasone Sodium Phosphate (Decadron) 12 mg in 50 mls @ 200 mls/hr IV ONCE [facility] Stop: 02/08/23 23:59 Last Infusion: 02/08/23 11:20 Dose: Infused Mitoxantrone HCl 18 mg/ Sodium (Chloride) 59 mls @ 118 mls/hr IV ONCE [facility] Stop: 02/08/23 23:59 Last Admin: 02/08/23 11:49 Dose: 118 mls/hr Ondansetron HCl (Ondansetron Odt 8 Mg Tab.Rapdis) 8 mg TRANSLINGU ONCE [facility] Stop: 02/08/23 23:59 Last Admin: 02/08/23 11:05 Dose: 8 mg Pegfilgrastim (Pegfilgrastim Onpro 6 Mg/0.6 Ml Syr.W..Inj) 6 mg SUBCUT ONCE [facility] Stop: 02/08/23 23:59 Home Medications Medication Instructions Recorded Confirmed Type denosumab 120 mg/1.7 mL (70 mg/mL) 120 mg subcut Q4W 07/28/20 12/14/22 History subcutaneous solution (Xgeva) vit C 250 mg-vit E 90 mg-zinc 40 1 tab PO QAM 12/08/21 12/14/22 History mg-copper 1 [id number] capsule (PreserVision AREDS-2) leuprolide acetate (6 month) 45 mg 45 mg subcut [id number] 03/31/22 12/14/22 History (6 month) subcutaneous syringe (Eligard) Allergies Allergy/AdvReac Type Severity Reaction Status Date / Time No Known Allergies Allergy Verified 11/28/22 12:37 Exam Vital signs: Vital Signs Temp 97.3 F 02/08/23 10:10 Pulse 108 H 02/08/23 10:10 Resp 18 02/08/23 10:10 BP 130/74 02/08/23 10:10 Pulse Ox 94 02/08/23 10:10 O2 Del Method Room Air 02/08/23 10:10 Intake & Output 02/07/23 02/08/23 02/08/23 18:59 06:59 18:59 Intake Total 50 / 50 Balance 50 / 50 Intake: Intake, IV Amount 50 / 50 dexAMETHasone sod phosphate/NS 50 / 50 12 mg In 50 ml @ 200 mls/hr IV ONCE RAIMUNDO Rx#:[id number] Other: Weight 86.2 kg 86.3 kg [place] Weight in Grams 02534 Weight 86.3 kg BMI result Body Mass Index 28.1 - Constitutional Present: no acute distress - Routine HEENT Exam Head: Present: normal inspection - Routine Neck Exam Present: full ROM. Absent: lymphadenopathy - Routine Respiratory Exam Present: CTAB - Routine Cardiovascular Exam Cardiovascular: Present: RRR, S1, S2 - Routine Abdominal Exam Present: soft - Routine Extremities Exam Present: full ROM, joint swelling. Absent: calf tenderness, pedal edema, tenderness - Routine Skin Exam Present: intact. Absent: cyanosis, erythema Data - Labs CBC & Chem 7: 02/07/23 10:04 02/07/23 10:04 - Imaging Radiologist's impression: ITS Impressions Chest X-Ray 07/28/20 11:50 IMPRESSION: No evidence for acute disease in the chest. Sclerotic bone disease similar to previous exams. EXAMINATION: Right shoulder x-ray CLINICAL INFORMATION: Pain COMPARISON: None. TECHNIQUE: 4 views of the right shoulder FINDINGS: Bone alignment is normal. No fracture or dislocation is seen. The glenohumeral joint is normal. There is arthritis at the acromioclavicular joint. There is evidence of diffuse sclerotic bone disease. Soft tissues are unremarkable. IMPRESSION: Sclerotic bone disease. Arthritis at the acromioclavicular joint. EXAMINATION: Right knee x-ray CLINICAL INFORMATION: Pain COMPARISON: None. TECHNIQUE: 4 views right knee FINDINGS: Bone alignment is normal. No fracture or dislocation is seen. The joint spaces are normal. There is no joint effusion. IMPRESSION: Unremarkable exam. Knee X-Ray 07/28/20 11:50 IMPRESSION: No evidence for acute disease in the chest. Sclerotic bone disease similar to previous exams. EXAMINATION: Right shoulder x-ray CLINICAL INFORMATION: Pain COMPARISON: None. TECHNIQUE: 4 views of the right shoulder FINDINGS: Bone alignment is normal. No fracture or dislocation is seen. The glenohumeral joint is normal. There is arthritis at the acromioclavicular joint. There is evidence of diffuse sclerotic bone disease. Soft tissues are unremarkable. IMPRESSION: Sclerotic bone disease. Arthritis at the acromioclavicular joint. EXAMINATION: Right knee x-ray CLINICAL INFORMATION: Pain COMPARISON: None. TECHNIQUE: 4 views right knee FINDINGS: Bone alignment is normal. No fracture or dislocation is seen. The joint spaces are normal. There is no joint effusion. IMPRESSION: Unremarkable exam. Shoulder X-Ray 07/28/20 11:50 IMPRESSION: No evidence for acute disease in the chest. Sclerotic bone disease similar to previous exams. EXAMINATION: Right shoulder x-ray CLINICAL INFORMATION: Pain COMPARISON: None. TECHNIQUE: 4 views of the right shoulder FINDINGS: Bone alignment is normal. No fracture or dislocation is seen. The glenohumeral joint is normal. There is arthritis at the acromioclavicular joint. There is evidence of diffuse sclerotic bone disease. Soft tissues are unremarkable. IMPRESSION: Sclerotic bone disease. Arthritis at the acromioclavicular joint. EXAMINATION: Right knee x-ray CLINICAL INFORMATION: Pain COMPARISON: None. TECHNIQUE: 4 views right knee FINDINGS: Bone alignment is normal. No fracture or dislocation is seen. The joint spaces are normal. There is no joint effusion. IMPRESSION: Unremarkable exam. Assessment and Plan Patient Active problem list reviewed?: Yes (1) Prostate cancer metastatic to bone Status: Chronic Assessment and plan: 1. This is a 82 year-old male with metastatic Prostate Cancer, Bone Metastases diagnosed in 2012. pMSI. BRCA 10/05 negative. He is on LHRH agonist q 6 months. On monthly denosumab. He has been on chemotherapy and different hormonal therapies from July 2014. Patient resumed docetaxel with carboplatin in January 2022 after a 5 month hiatus during which he underwent right knee replacement. He was hoping to receive Kirsten labeled PSMA-617 for PSMA positive tumors/metastasis, he was told about bone marrow suppression as he received previous radium treatment. He was recommended either enrollment into a clinical trial or resuming docetaxel/carboplatin which he was on until late 2020. He was seen by Dr. Jaqueline Ayala at [facility] 2021, he has been recommended Cabazitaxel or mitoxantrone on progression. They did discuss lutetium therapy but this would be very intense therapy since he is at risk of severe cytopenias and would need transfusion support. It would also be difficult for him to travel to [place] as his is invalid. PSMA PET-CT performed at [facility] on 10/07/2022 showed multifocal abnormal osseous uptake consistent with widespread bony metastasis. Uptake noted throughout cervical, thoracic, lumbar spine, both shoulders and scapula, multiple ribs, pelvic bones and proximal femurs. Max SUV 20.2 in the left side of sacrum. Metabolically active left axillary lymphadenopathy, metabolically active azygos node as well as small nodes in the left of mid esophagus. All the lymph nodes appear to be small.No uptake in the brain mentioned. He is now starting treatment with mitoxantrone 12 milligram/meter sq administered every 21 days along with prednisone 5 mg daily. Dose reduced to 75 % because of cytopenias. 2. Rght earhearing loss balance problems. 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 There was also 5 mm enhancing nodule within the left superior vermis of the left cerebellum. This was done at outside facility. He went through course of high-dose steroids. 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 He is closely followed by ENT specialist. 3. Normocytic anemia which is probably related to bone marrow involvement with his tumor. He received 2 units PRBC in November 2022. Anemia has improved and is stable. I had multiple discussions with the patient about further treatment with chemotherapy. He was advised that chemo would probably be futile and could cause even severe cytopenias because of bone marrow suppression from his previous therapies. He would like to try as he has no other options left. He continues to be the primary caregiver for his who has terminal dementia and is on hospice care. Proceed with treatment today, 75% dose being given. Follow-up in 4 weeks. - Time Spent With Patient Time Spent with Patient (in minutes): 15
[2023-02-08] MEDS: Pegfilgrastim Onpro 6 MG/0.6 ML SYR.W..INJ SUBCUT (13:00)
[2023-02-08 14:25] LABS: Prostate Specific Antigen 238.87 ng/mL (<0.05-4.0)
--- NOTE | 2023-02-08 16:02 | MHC.HEMONC ---
Here for C1 Mitoxantrone. Pt states is feeling good today. Labs done 02/07 reviewed. Port accessed with good blood return noted. Chemo teach done for new treatment with mitoxantrone including side effects and when to call. Pt states understanding and consent signed. Premeds given as ordered. Treatment done and tolerated well. Denosumab 120mg sc given as ordered, and neulasta onpro placed left upper arm, with instructions given as to when to remove. No PA required for onpro per Essie Gonzalez in to see pt. Pt to start weekly labs at home and order faxed to Makenna in the lab at [phone]. Denosumab to be given every [address] Gonzalez. Departure packet given and pt departed unit. Will return in 3 weeks for next treatment.
--- NOTE | 2023-02-09 10:45 | MHC.HEMONC ---
Triage call from pt. He states he woke up at 1am with pain in his left arm and shoulder. He states it lasted until around 6am, and pain went from left shoulder to right shoulder. States pain was not sharp, denies sob. He did take tylenol with good effects and has no pain at this time. He states he took his bp, 118/78, and hr 87. All of above was discussed with Dr Gonzalez. Pt instructed to monitor pain, and to call back with worsening pain, or any other symptoms. He states understanding.
--- NOTE | 2023-02-21 13:12 | HO.HEMONCSCH ---
Spoke w/pt regrading phlebotomy home draw scheduling change. Pt is ineligible for home draws. pt confirmed receipt.
[2023-02-22 10:46] LABS: Hematocrit 28.4 % (42.0-52.0); Hemoglobin 8.8 g/dl (14.0-18.0); Mean Corpuscular Hemoglobin 31.2 pg (27.0-33.0); Mean Corpuscular Volume 100.7 fL (80.0-98.0); Mean Platelet Volume 9.4 fL (9.4-12.4); Red Blood Count 2.82 X10*6/uL (4.60-5.80); Red Cell Distribution Width 18.9 % (11.0-16.0); White Blood Count 8.6 X10*3/uL (4.8-10.8)
[2023-02-22 10:47] LABS: NRBC Pct Auto 6.2 /100WBC (0.0-0.2); Platelet Count 66 X10*3/uL (160-400)
[2023-02-22 10:59] LABS: Alanine Aminotransferase 24 U/L (0-40); Albumin Level 4.1 g/dL (3.5-5.0); Alkaline Phosphatase 302 U/L (39-117); Anion Gap 14 (12-20); Aspartate Amino Transferase 23 U/L (5-37); Bilirubin Total 0.7 mg/dL (0.0-1.0); Blood Urea Nitrogen 31 mg/dL (9-16); Calcium 8.4 mg/dL (8.4-10.2); Carbon Dioxide 23 mmol/L (22-29); Chloride 107 mmol/L (96-108); Creatinine Clr Calc Pharmacy 54.8; Estimated Glomerular Filt Rate 60; Glucose Random 244 mg/dL (60-115); Potassium 4.1 mmol/L (3.3-5.1); Sodium 140 mmol/L (135-145); Total Protein 6.3 g/dL (6.5-8.0)
[2023-02-22 11:06] LABS: Atypical Lymph Absolute Manual 0.2 x10*3/uL; Atypical Lymphs Percent Manual 2 % (0-6); Band Neutrophils Percent 19 % (3-5); Eosinophils Absolute Manual 0.1 X10*3/uL (0.0-0.4); Eosinophils Percent Manual 1 % (0-4); Lymphocytes Absolute Manual 1.3 X10*3/uL (1.2-4.9); Lymphocytes Percent Manual 15 % (20-40); Metamyelocytes Absolute 0.3 X10*3/uL; Metamyelocytes Percent 3 %; Monocytes Absolute Manual 0.4 X10*3/uL (0.1-1.2); Monocytes Percent Manual 5 % (2-11); Neutrophils Absolute Manual 6.4 X10*3/uL (2.0-8.3); Neutrophils Percent Manual 55 % (45-73); Nucleated Red Blood Cells 9 /100WBC (0-0)
[2023-02-22 11:08] LABS: Hypochromasia 1+ (5-14) /OIF; Macrocytosis 1+ (5-14) /OIF; Ovalocytes 1+ (5-14) /OIF; Platelet Estimate DECREASED (NORMAL); Platelet Morphology Comment NORMAL; Polychromasia 1+ (0-2) /OIF; RBC Morphology NOTED; Tear Drop Cells 1+ (0-2) /OIF
--- NOTE | 2023-02-22 11:48 | MHC.HEMONC ---
labs reviewed with Dr Gonzalez. No new orders at this time. He will return next week for lab recheck on 02/28
[2023-02-28 10:43] LABS: Hematocrit 29.6 % (42.0-52.0); Hemoglobin 9.3 g/dl (14.0-18.0); Mean Corpuscular HGB Conc 31.4 g/dl (31.0-36.0); Mean Corpuscular Hemoglobin 31.3 pg (27.0-33.0); Mean Corpuscular Volume 99.7 fL (80.0-98.0); Mean Platelet Volume 9.1 fL (9.4-12.4); Red Blood Count 2.97 X10*6/uL (4.60-5.80); Red Cell Distribution Width 19.4 % (11.0-16.0); White Blood Count 8.7 X10*3/uL (4.8-10.8)
[2023-02-28 10:44] LABS: NRBC Pct Auto 11.7 /100WBC (0.0-0.2); Platelet Count 60 X10*3/uL (160-400)
[2023-02-28 11:00] LABS: Alanine Aminotransferase 23 U/L (0-40); Albumin Level 4.2 g/dL (3.5-5.0); Alkaline Phosphatase 289 U/L (39-117); Anion Gap 13 (12-20); Aspartate Amino Transferase 27 U/L (5-37); Bilirubin Total 0.8 mg/dL (0.0-1.0); Blood Urea Nitrogen 21 mg/dL (9-16); Calcium 8.7 mg/dL (8.4-10.2); Carbon Dioxide 23 mmol/L (22-29); Chloride 108 mmol/L (96-108); Creatinine Clr Calc Pharmacy 65.4; Estimated Glomerular Filt Rate > 60; Glucose Random 219 mg/dL (60-115); Potassium 4.2 mmol/L (3.3-5.1); Sodium 140 mmol/L (135-145); Total Protein 6.5 g/dL (6.5-8.0)
[2023-02-28 11:23] LABS: Atypical Lymph Absolute Manual 0.2 x10*3/uL; Atypical Lymphs Percent Manual 2 % (0-6); Band Neutrophils Percent 7 % (3-5); Basophils Abs Manual 0.1 X10*3/uL (0.0-0.2); Basophils Percent Manual 1 % (0-2); Eosinophils Absolute Manual 0.1 X10*3/uL (0.0-0.4); Eosinophils Percent Manual 1 % (0-4); Lymphocytes Absolute Manual 1.4 X10*3/uL (1.2-4.9); Lymphocytes Percent Manual 16 % (20-40); Metamyelocytes Absolute 0.2 X10*3/uL; Metamyelocytes Percent 2 %; Monocytes Absolute Manual 0.9 X10*3/uL (0.1-1.2); Monocytes Percent Manual 10 % (2-11); Neutrophils Absolute Manual 5.9 X10*3/uL (2.0-8.3); Neutrophils Percent Manual 61 % (45-73)
[2023-02-28 11:24] LABS: Nucleated Red Blood Cells 13 /100WBC (0-0)
[2023-02-28 11:28] LABS: RBC Morphology NOTED
[2023-02-28 11:29] LABS: Ovalocytes 1+ (5-14) /OIF; Tear Drop Cells 1+ (0-2) /OIF
[2023-02-28 11:30] LABS: Hypochromasia 1+ (5-14) /OIF; Polychromasia 2+ (3-5) /OIF
[2023-02-28 11:31] LABS: Macrocytosis 1+ (5-14) /OIF; Platelet Estimate DECREASED (NORMAL); Platelet Morphology Comment NORMAL
[2023-03-01] MEDS: diphenhydrAMINE HCL 25 MG CAPSULE PO (11:20)
[2023-03-01] MEDS: Acetaminophen 325 MG TABLET 650 MG PO (11:20)
[2023-03-01] MEDS: Ondansetron ODT 8 MG TAB.RAPDIS TRANSLINGU (11:20)
[2023-03-01] MEDS: Famotidine 20 MG TABLET PO (11:20)
[2023-03-01] MEDS: Heparin Sodium,Porcine Flush 500 UNIT/5 ML SYRINGE IVFLUSH (11:22)
[2023-03-01] MEDS: Pegfilgrastim Onpro 6 MG/0.6 ML SYR.W..INJ SUBCUT (12:35)
--- NOTE | 2023-03-01 15:55 | MHC.HEMONC ---
Here for C2 Mitoxantrone. Is feeling good today. Does state he is tired, and at times does get nauseous. Port accessed with good blood return noted. Labs done 02/[address] Basurto is aware of platelet count of 60, and pt ok for treatment. Premedicated with tylenol, benadryl, zofran, and pepcid po. Took prednisone at home, and dexamethasone held. Treatment done and tolerated well. Port flushed with heparin 500units and de-accessed. Neulasta onpro in place. Departure packet given and pt departed unit. Next chemo with follow up scheduled for 3 weeks.
--- NOTE | 2023-03-06 16:49 | MHC.HEMONC ---
Pt called, asked when his Denosumab/Xgeva injection is booked, nurse informed him it is booked for [id number] now, and will coincide w/ his next chemo cycle on 03/22/23, w/ lab appt the day before hand. Pt asked about having his labs checked more routinely, said he feels like shit. , reporting dizziness, SOB, especially on exertion. Nurse scheduled pt to come for lab check the following day, possible IV hydration.
[2023-03-07 11:05] VITALS: BP 136/104; PULSE 102; RESP 18; TEMP 36.9; O2SAT 95
[2023-03-07 11:12] LABS: Hematocrit 27.3 % (42.0-52.0); Hemoglobin 8.5 g/dl (14.0-18.0); Mean Corpuscular HGB Conc 31.1 g/dl (31.0-36.0); Mean Corpuscular Hemoglobin 31.7 pg (27.0-33.0); Mean Corpuscular Volume 101.9 fL (80.0-98.0); Mean Platelet Volume 9.6 fL (9.4-12.4); Red Blood Count 2.68 X10*6/uL (4.60-5.80); Red Cell Distribution Width 19.1 % (11.0-16.0)
[2023-03-07 11:13] LABS: NRBC Pct Auto 4.3 /100WBC (0.0-0.2); Platelet Count 89 X10*3/uL (160-400); WBC ABN SCTR FOR CBC 1
[2023-03-07 11:35] LABS: Alanine Aminotransferase 21 U/L (0-40); Alkaline Phosphatase 285 U/L (39-117); Anion Gap 15 (12-20); Aspartate Amino Transferase 19 U/L (5-37); Bilirubin Total 0.8 mg/dL (0.0-1.0); Blood Urea Nitrogen 22 mg/dL (9-16); Calcium 8.9 mg/dL (8.4-10.2); Carbon Dioxide 24 mmol/L (22-29); Chloride 108 mmol/L (96-108); Creatinine Clr Calc Pharmacy 65.4; Estimated Glomerular Filt Rate > 60; Glucose Random 211 mg/dL (60-115); Potassium 4.6 mmol/L (3.3-5.1); Sodium 142 mmol/L (135-145); Total Protein 6.6 g/dL (6.5-8.0)
[2023-03-07 11:37] LABS: Band Neutrophils Percent 12 % (3-5); Basophils Percent Manual 1 % (0-2); Eosinophils Percent Manual 1 % (0-4); Lymphocytes Percent Manual 18 % (20-40); Monocytes Percent Manual 10 % (2-11); Neutrophils Percent Manual 58 % (45-73); Nucleated Red Blood Cells 4 /100WBC (0-0)
[2023-03-07 11:38] LABS: Macrocytosis 1+ (5-14) /OIF; RBC Morphology NOTED; Tear Drop Cells 1+ (0-2) /OIF
[2023-03-07 11:39] LABS: Ovalocytes 1+ (5-14) /OIF; Polychromasia 1+ (0-2) /OIF
[2023-03-07 11:41] LABS: Basophilic Stippling 1+ (0-2) /OIF; Dohle Bodies PRESENT; Platelet Estimate DECREASED (NORMAL)
[2023-03-07 11:42] LABS: Platelet Morphology Comment NORMAL
[2023-03-07 11:44] LABS: Lymphocytes Absolute Manual 0.8 X10*3/uL (1.2-4.9); Monocytes Absolute Manual 0.4 X10*3/uL (0.1-1.2); Neutrophils Absolute Manual 3.1 X10*3/uL (2.0-8.3); White Blood Count 4.4 X10*3/uL (4.8-10.8)
--- NOTE | 2023-03-07 12:35 | MHC.HEMONC ---
Pt came in today for lab draw after calling the previous day to c/o dizziness, weakness, SOB w/ exertion. Pt's VSS, labs were drawn peripherally, pt declined to receive IV hydration today, said he's feeling much better today. Pt says the SOB has been progressive and ongoing since before starting new tx plan, also he said the dizziness improved after he received new prescription for his glasses, so he cannot be sure whether that was the cause. Pt added that he felt horrible over the weekend, could barely move, he felt so weak and dizzy. Pt departed clinic. Nurse reviewed lab results w/ Dr. Gonzalez, WBC and ANC were trending down, to 4.4 and 3.1 respectively, Hgb of 8.5, no need for intervention at this time, per Dr. Gonzalez, though she did offer pt to receive IV hydration if he wished. Nurse also reviewed pt's med list, confirmed he is taking Prednisone 5 mg PO daily as part of his Mitoxantrone regimen, Dr. Gonzalez confirmed this is the dose she wants him to take, not BID as defaults on tx plan. Pt was called at home, updated him, asked him to call again if his symptoms worsen.
[2023-03-21 10:42] LABS: Hematocrit 28.5 % (42.0-52.0); Hemoglobin 8.9 g/dl (14.0-18.0); Mean Corpuscular HGB Conc 31.2 g/dl (31.0-36.0); Mean Corpuscular Hemoglobin 31.9 pg (27.0-33.0); Mean Corpuscular Volume 102.2 fL (80.0-98.0); Mean Platelet Volume 9.8 fL (9.4-12.4); Red Blood Count 2.79 X10*6/uL (4.60-5.80); Red Cell Distribution Width 19.5 % (11.0-16.0); White Blood Count 11.2 X10*3/uL (4.8-10.8)
[2023-03-21 10:49] LABS: NRBC Pct Auto 12.6 /100WBC (0.0-0.2); Platelet Count 66 X10*3/uL (160-400)
--- NOTE | 2023-03-21 10:58 | MHC.HEMONC ---
pt attended for pre chemo lab c/o more fatigue then normal. hgb 8.9 dr wheatley aware,no need for transfusion. pt ok for treatment tomorrow. v/m left on cell
[2023-03-21 11:07] LABS: Alanine Aminotransferase 23 U/L (0-40); Alkaline Phosphatase 265 U/L (39-117); Anion Gap 15 (12-20); Aspartate Amino Transferase 22 U/L (5-37); Bilirubin Total 0.7 mg/dL (0.0-1.0); Blood Urea Nitrogen 25 mg/dL (9-16); Calcium 9.1 mg/dL (8.4-10.2); Carbon Dioxide 24 mmol/L (22-29); Chloride 106 mmol/L (96-108); Creatinine Clr Calc Pharmacy 60.4; Estimated Glomerular Filt Rate > 60; Glucose Random 245 mg/dL (60-115); Potassium 4.4 mmol/L (3.3-5.1); Sodium 141 mmol/L (135-145); Total Protein 6.9 g/dL (6.5-8.0)
[2023-03-21 11:14] LABS: Atypical Lymph Absolute Manual 0.1 x10*3/uL; Atypical Lymphs Percent Manual 1 % (0-6); Band Neutrophils Percent 9 % (3-5); Basophils Abs Manual 0.1 X10*3/uL (0.0-0.2); Basophils Percent Manual 1 % (0-2); Blast Percent 1 %; Blastocytes Absolute 0.1 X10*3/uL; Lymphocytes Absolute Manual 1.5 X10*3/uL (1.2-4.9); Lymphocytes Percent Manual 13 % (20-40); Metamyelocytes Absolute 0.3 X10*3/uL; Metamyelocytes Percent 3 %; Monocytes Absolute Manual 0.7 X10*3/uL (0.1-1.2); Monocytes Percent Manual 6 % (2-11); Neutrophils Absolute Manual 8.4 X10*3/uL (2.0-8.3); Neutrophils Percent Manual 66 % (45-73); Nucleated Red Blood Cells 14 /100WBC (0-0)
[2023-03-21 11:16] LABS: Macrocytosis 1+ (5-14) /OIF; Platelet Estimate DECREASED (NORMAL); Platelet Morphology Comment NORMAL; RBC Morphology NOTED
[2023-03-21 11:17] LABS: Ovalocytes 1+ (5-14) /OIF; Polychromasia 1+ (0-2) /OIF; Tear Drop Cells 1+ (0-2) /OIF
[2023-03-22 10:14] VITALS: BP 131/61; PULSE 96; RESP 18; TEMP 36.5; O2SAT 98; BMI 27.3
[2023-03-22] MEDS: Ondansetron ODT 8 MG TAB.RAPDIS TRANSLINGU (11:16)
[2023-03-22] MEDS: Acetaminophen 325 MG TABLET 650 MG PO (11:16)
[2023-03-22] MEDS: Famotidine 20 MG TABLET PO (11:16)
[2023-03-22] MEDS: diphenhydrAMINE HCL 25 MG CAPSULE PO (11:17)
[2023-03-22] MEDS: Heparin Sodium,Porcine Flush 500 UNIT/5 ML SYRINGE IVFLUSH (11:17)
--- NOTE | 2023-03-22 11:37 | P.PNHO-ONC_ITS ---
Medical Summary - Medical Summary Date of Service: 03/22/23 Chief complaint: Dizziness Primary Care Provider: Héctor Perla MD Medical Summary: DIAGNOSIS: Mr. Morgan was diagnosed with prostate cancer in 2006. THERAPY: 1. He underwent radical retropubic prostatectomy with bilateral pelvic lymphadenectomy on March 31, 2007. He was staged as a T3a [place]'s 4 + 3 prostate adenocarcinoma. 2. He underwent ERBT postoperatively in 2007 for a rising PSA. 3. He was diagnosed with metastatic disease, bony metastasis sometime in 2011 and has been on hormonal manipulation under the care of his urologist Dr. Oreilly. Repeat imaging: Restaging with a PET scan May 14, 2014 showed mild hypermetabolic activity in the right L2 pedicle SUV of 3.4, T11, T12 and T10 SUV of 5.28, and T5, T4 and T3 vertebrae with only residual sites of disease. No additional hypermetabolic activity in the skeleton, and no lymphadenopathy. Diffuse sclerotic lesions throughout cervical, dorsal, lumbar sacral spine, iliac bones and bilateral ribs consistent with old metastatic disease. PSA on May 02, 2014, 25.6 and total testosterone less than 1 ng/dL. 4. After oncology consultation in apr 2014, patient started Denosumab (Xgeva)120 mg subcu monthly, since June 02, 2014. 5. Because of rising PSA noted in July 2014 when it reggie 61, the patient was taken off Casodex. 6. The patient started Xtandi or enzalutamide at a dose of 160 mg once daily on October 14, 2014. 7. Started Xofigo (radium 223)dose of 55 KBq/ per kilo every 4 weeks for 6 doses on 04/05/16. 8. Received palliative radiotherapy to C2 vertebral body at [facility] in June 2017 because of increasing uptake on PET scan worrisome for metastasis. 9. He started zytiga Jul 2017 to Sep 2017. Discontinued for rising PSA. 10. He then received 6 cycles Taxotere from 10/25/17 to January 2018. MSI status on tumor, showed preserved expression of DNA mismatch repair proteins indicating lack of microsatellite instability. Patient?s genetic test result , extended my Risk genetic panel testing was negative. 11. Ketoconazole for 1 month apr/2017. 12. Was seen at [facility] by Dr. Jaqueline Ayala for second opinion as well as consideration of clinical trials, was recommended clinical trial with olaparib +/- Cederinib. If he decides against trial, options would be to reconsider Zytiga, chemotherapy with Cabazitaxel +/- Carboplatinum or Apalutamide. 13. Was on Apalutamide 240 mg once a day for about 3 months. Rising PSA. 14. Switched to Zytiga 1000 mg once a day with prednisone 5 mg b.i.d. from end of December 2018. 15. Discontinued 03/14/2019 because of rising PSA. 16. Started Cabazitaxel March 2019. Treated for Legionella pneumonia after cycle 1 17. Switched to Xtandi in September 2020 18. Started back on docetaxel but added carboplatin since 05/19/2021 because of progressive disease. Olaparib was not approved by insurance carrier. BRCA mutation is negative, Homologous recombination repair gene mutation to be performed if possible. He underwent iliac crest biopsy at the site of bony lesion, however, this was negative for any malignant cells. PSMA PET-CT was performed 08/04/2021, he has PSMA avid disease besides extensive bone metastasis he has supraclavicular and chest lymph nodes. He was hoping to receive Kirsten labeled PSMA-617 for PSMA positive tumors/metastasis, unfortunately it was not commercially available although FDA approved. He was going a to [facility] where he was initially felt to be a candidate to receive this treatment. Subsequently he was told about bone marrow suppression as he received previous radium treatment. He was recommended either enrollment into a clinical trial or resuming docetaxel/carboplatin which he was on until late 2020. Interval History Interval history: Patient is here in follow-up. He feels much weaker and tired compared to last few months. He is here for 3rd cycle of mitoxantrone. He reports worsening dizziness. This occurs when he stands and moves around but sometimes even at rest. He is eyes become blurry at times. He is going to see an thoracic medicine physician. He reports no associated nausea, headache or diaphoresis. He continues to help take care of his at home. He gets VNA/hospice nurses as well as home health aid to help care for his . Review of Systems - Constitutional Reports as per HPI, Reports fatigue, Reports lack of energy, Reports malaise, Reports poor appetite - Cardiovascular Reports no additional cardiovascular complaints, Denies chest pain, Denies excessive sweating, Denies fainting, Denies fast heart rate - Respiratory Reports no additional respiratory complaints, Denies chest congestion, Denies cough - Gastrointestinal Reports no additional gastrointestinal complaints - Neurologic Reports no additional neurologic complaints, Denies headache(s) [facility] Medical History: Medical History (Last Reviewed 03/07/23 @ 11:08 by Jama Gipson RN) Acquired hypothyroidism Ascending aorta dilatation COVID-19 vaccine series completed Diabetes mellitus Family history of anesthesia complication GERD without esophagitis History of chemotherapy Legionella pneumonia Non-rheumatic aortic regurgitation Overweight (BMI 25.0-29.9) Port-A-Cath in place Primary osteoarthritis of right knee 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 Mother No problems noted. Surgical History: Surgical History (Last Reviewed 03/07/23 @ 11:08 by Jama Gipson RN) H/O colonoscopy History of appendectomy History of left inguinal hernia repair Onset Date: ~02/2011 History of prostatectomy Onset Date: ~03/31/07 History of shoulder surgery History of total right knee replacement Hx of bilateral cataract extraction Social History: Social History (Last Reviewed 03/07/23 @ 11:08 by Jama Gipson RN) Living Situation History: Household Members: Significant Other Housing: House Are you a primary career technical supervisor to a significant other at home: Yes Are you a primary career technical supervisor to a significant other at home comment: , bedridden ,Alzheimer's, on Hospice Do you presently have visiting nurse or other home services: Yes Do you presently have visiting nurse or other home services comment: Hospice nurse and JUNIOR ACCOUNTANT 9-1 Alcohol History Details: 1. How often do you have a drink containing alcohol?: b. Monthly or less 2. How many drinks containing alcohol do you have on a typical day when you are drinking?: a. 1 or 2 Tobacco History: Patient Tobacco Use Status: Former Tobacco user Tobacco use type: Cigarette Smoke Quit Date: e-Cigarette/Vaping Use: Never Used Second Hand Smoke Exposure: Yes Substance Use History: Use of substances other than those prescribed or required for medical reasons : No Domestic Abuse History: Have you been hit, kicked, punched, or otherwise hurt by someone within the past year? If so, by whom?: No Do you feel safe in your current relationship?: Yes Advance Directives: Advance Directives Date on File: 05/10/22 Homicidal Assessment: Do you have thoughts of harming others: None Do you have a plan to hurt others: No Plan Do you have the means to hurt others: No Nutrition Assessment: Recently lost weight without trying: No Occupation Assessmet: service: No Current occupational status: retired Oncology Screenings - ECOG Performance Status ECOG Performance Status: 1 Home Medications and Allergies Current Medications: Current Medications Acetaminophen (Acetaminophen 325 Mg Tablet) 650 mg PO ONCE RAIMUNDO Stop: 03/22/23 23:59 Last Admin: 03/22/23 11:16 Dose: 650 mg Denosumab (Denosumab 120 Mg/1.7 Ml Vial) 120 mg SUBCUT ONCE RAIMUNDO Stop: 03/22/23 23:59 Diphenhydramine HCl (Diphenhydramine Hcl 25 Mg Capsule) 25 mg PO ONCE RAIMUNDO Stop: 03/22/23 23:59 Last Admin: 03/22/23 11:17 Dose: 25 mg Famotidine (Famotidine 20 Mg Tablet) 20 mg PO ONCE RAIMUNDO Stop: 03/22/23 23:59 Last Admin: 03/22/23 11:16 Dose: 20 mg Heparin Sodium (Porcine) (Heparin Sodium,Porcine Flush 500 Unit/5 Ml Syringe) 500 unit IVFLUSH ONCE RAIMUNDO Stop: 03/22/23 23:59 Last Admin: 03/22/23 11:17 Dose: 500 unit Dexamethasone Sodium Phosphate (Decadron) 12 mg in 50 mls @ 200 mls/hr IV ONCE RAIMUNDO Stop: 03/22/23 23:59 Mitoxantrone HCl 18 mg/ Sodium (Chloride) 59 mls @ 118 mls/hr IV ONCE RAIMUNDO Stop: 03/22/23 23:59 Last Admin: 03/22/23 11:35 Dose: 118 mls/hr Ondansetron HCl (Ondansetron Odt 8 Mg Tab.Rapdis) 8 mg TRANSLINGU ONCE RAIMUNDO Stop: 03/22/23 23:59 Last Admin: 03/22/23 11:16 Dose: 8 mg Pegfilgrastim (Pegfilgrastim Onpro 6 Mg/0.6 Ml Syr.W..Inj) 6 mg SUBCUT ONCE RAIMUNDO Stop: 03/22/23 23:59 Home Medications Medication Instructions Recorded Confirmed Type denosumab 120 mg/1.7 mL (70 mg/mL) 120 mg subcut Q4W 07/28/20 03/07/23 History subcutaneous solution (Xgeva) vit C 250 mg-vit E 90 mg-zinc 40 1 tab PO QAM 12/08/21 03/07/23 History mg-copper 1 [id number] capsule (PreserVision AREDS-2) leuprolide acetate (6 month) 45 mg 45 mg subcut [id number] 03/31/22 03/07/23 History (6 month) subcutaneous syringe (EliLocalBanyad) Allergies Allergy/AdvReac Type Severity Reaction Status Date / Time No Known Allergies Allergy Verified 03/07/23 11:08 Exam Vital signs: Vital Signs Temp 97.7 F 03/22/23 10:14 Pulse 96 03/22/23 10:14 Resp 18 03/22/23 10:14 BP 131/61 03/22/23 10:14 Pulse Ox 98 03/22/23 10:14 O2 Del Method Room Air 03/22/23 10:14 Intake & Output 03/21/23 03/22/23 03/22/23 18:59 06:59 18:59 Other: Weight 86.3 kg 83.9 kg Weight in Grams 27724 Weight 83.9 kg BMI result Body Mass Index 27.3 - Constitutional Present: no acute distress - Routine HEENT Exam Head: Present: normal inspection - Routine Neck Exam Present: full ROM. Absent: lymphadenopathy - Routine Respiratory Exam Present: CTAB - Routine Cardiovascular Exam Cardiovascular: Present: RRR, S1, S2 - Routine Abdominal Exam Present: soft - Routine Extremities Exam Present: full ROM, joint swelling. Absent: calf tenderness, pedal edema, tenderness - Routine Skin Exam Present: intact. Absent: cyanosis, erythema Data - Labs CBC & Chem 7: 03/21/23 10:33 03/21/23 10:33 - Imaging Radiologist's impression: ITS Impressions Chest X-Ray 07/28/20 11:50 IMPRESSION: No evidence for acute disease in the chest. Sclerotic bone disease similar to previous exams. EXAMINATION: Right shoulder x-ray CLINICAL INFORMATION: Pain COMPARISON: None. TECHNIQUE: 4 views of the right shoulder FINDINGS: Bone alignment is normal. No fracture or dislocation is seen. The glenohumeral joint is normal. There is arthritis at the acromioclavicular joint. There is evidence of diffuse sclerotic bone disease. Soft tissues are unremarkable. IMPRESSION: Sclerotic bone disease. Arthritis at the acromioclavicular joint. EXAMINATION: Right knee x-ray CLINICAL INFORMATION: Pain COMPARISON: None. TECHNIQUE: 4 views right knee FINDINGS: Bone alignment is normal. No fracture or dislocation is seen. The joint spaces are normal. There is no joint effusion. IMPRESSION: Unremarkable exam. Knee X-Ray 07/28/20 11:50 IMPRESSION: No evidence for acute disease in the chest. Sclerotic bone disease similar to previous exams. EXAMINATION: Right shoulder x-ray CLINICAL INFORMATION: Pain COMPARISON: None. TECHNIQUE: 4 views of the right shoulder FINDINGS: Bone alignment is normal. No fracture or dislocation is seen. The glenohumeral joint is normal. There is arthritis at the acromioclavicular joint. There is evidence of diffuse sclerotic bone disease. Soft tissues are unremarkable. IMPRESSION: Sclerotic bone disease. Arthritis at the acromioclavicular joint. EXAMINATION: Right knee x-ray CLINICAL INFORMATION: Pain COMPARISON: None. TECHNIQUE: 4 views right knee FINDINGS: Bone alignment is normal. No fracture or dislocation is seen. The joint spaces are normal. There is no joint effusion. IMPRESSION: Unremarkable exam. Shoulder X-Ray 07/28/20 11:50 IMPRESSION: No evidence for acute disease in the chest. Sclerotic bone disease similar to previous exams. EXAMINATION: Right shoulder x-ray CLINICAL INFORMATION: Pain COMPARISON: None. TECHNIQUE: 4 views of the right shoulder FINDINGS: Bone alignment is normal. No fracture or dislocation is seen. The glenohumeral joint is normal. There is arthritis at the acromioclavicular joint. There is evidence of diffuse sclerotic bone disease. Soft tissues are unremarkable. IMPRESSION: Sclerotic bone disease. Arthritis at the acromioclavicular joint. EXAMINATION: Right knee x-ray CLINICAL INFORMATION: Pain COMPARISON: None. TECHNIQUE: 4 views right knee FINDINGS: Bone alignment is normal. No fracture or dislocation is seen. The joint spaces are normal. There is no joint effusion. IMPRESSION: Unremarkable exam. Assessment and Plan Patient Active problem list reviewed?: Yes (1) Prostate cancer metastatic to bone Status: Chronic Assessment and plan: 1. This is a 82 year-old male with metastatic Prostate Cancer, Bone Metastases diagnosed in 2012. pMSI. BRCA 10/05 negative. He is on LHRH agonist q 6 months. On monthly denosumab. He has been on chemotherapy and different hormonal therapies from July 2014. Patient resumed docetaxel with carboplatin in January 2022 after a 5 month hiatus during which he underwent right knee replacement. He was hoping to receive Kirsten labeled PSMA-617 for PSMA positive tumors/metastasi s, he was told about bone marrow suppression as he received previous radium treatment. He was recommended either enrollment into a clinical trial or resuming docetaxel/carboplatin which he was on until late 2020. He was seen by Dr. Jaqueline Ayala at [facility] 2021, he has been recommended Cabazitaxel or mitoxantrone on progression. They did discuss lutetium therapy but this would be very intense therapy since he is at risk of severe cytopenias and would need transfusion support. It would also be difficult for him to travel to [place] as his is invalid. PSMA PET-CT performed at [facility] on 10/07/2022 showed multifocal abnormal osseous uptake consistent with widespread bony metastasis. Uptake noted throughout cervical, thoracic, lumbar spine, both shoulders and scapula, multiple ribs, pelvic bones and proximal femurs. Max SUV 20.2 in the left side of sacrum. Metabolically active left axillary lymphadenopathy, metabolically active azygos node as well as small nodes in the left of mid esophagus. All the lymph nodes appear to be small.No uptake in the brain mentioned. He is on mitoxantrone 12 milligram/meter sq administered every 21 days along with prednisone 5 mg daily. Dose reduced to 75 % because of cytopenias. 2. Rght earhearing loss balance problems. 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 There was also 5 mm enhancing nodule within the left superior vermis of the left cerebellum. This was done at outside facility. He went through course of high-dose steroids. 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 He is closely followed by ENT specialist. 3. Normocytic anemia which is probably related to bone marrow involvement with his tumor. He received 2 units PRBC in November 2022. Anemia has improved and is stable. 4. Dizziness. This could be multifactorial. I will rule out brain Mets. 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 MRI of brain has been ordered. PSA continues to go up. If the brain scan is negative, I will order PSMA PET scan after this cycle and decide if there is any benefit of continuing mitoxantrone. Follow-up in 4 weeks. - Time Spent With Patient Time Spent with Patient (in minutes): 15
[2023-03-22] MEDS: Pegfilgrastim Onpro 6 MG/0.6 ML SYR.W..INJ SUBCUT (12:32)
--- NOTE | 2023-03-22 14:57 | MHC.HEMONC ---
Pt called, said he picked up scrip from Dr. Gonzalez at his [facility] for Ondansetron HCl 4 mg tabs, but he really prefers the Ondansetron 4 mg ODT which dissolve under the tongue, as they much more effectively treat his nausea. Unfortunately, pt stated he had already picked up the scrip from the pharmacy, so nurse explained that even if Dr. Gonzalez sends new scrip, it's unlikely his insurance would pay for same drug again so soon. Nurse called pt's [facility] on [address], but pharmacist said he cannot return the bottle of meds, even though he had not opened it. Pharmacist said that if pt were to pay at-cost, 9 ODT Ondansetron tabs would cost $67. Nurse updated pt by phone, but he said he will just remember to request the dissolving tabs the next time he gets a refill for ondansetron.
--- NOTE | 2023-03-22 15:07 | MHC.HEMONC ---
Here for C3 Mitoxantrone. Nixon states he has been very fatigued, with SOB on exertion. He had labs done 03/21, reviewed by Dr Gonzalez. Port accessed with good blood return noted. Premeds given as ordered. Pt took prednisone at home, so dexamethasone not given. Treatment done and tolerated well. Dr Gonzalez in to see pt for follow up. Plan is for pt to get brain scan, no chemo at this time. Port flushed with heparin 500units and de-accessed. Denosumab 120mg sc given right arm. Neulasta onpro in place left arm. Departure packet given and pt departed unit. Lab appointment scheduled for 1 week.
--- NOTE | 2023-03-22 15:09 | HO.HEMONCPA ---
Addendum entered by Gaviota Jarvis 03/22/23 15:37: ORDERS FAXED TO [facility] FOR PSMA PET SCAN FOR SCHEDULING Original Note: NO PA NEEDED FOR PET/CT REF- 03/22/23 2:08PM RECOVERY COACH ROSA Mas FAXED [facility] FOR SCHEDULING
--- NOTE | 2023-04-04 09:09 | HO.HEMONCPA ---
PATIENT SCHEDULED AT [facility] FOR PET/CT PYLARIFY PSMA ON APRIL 11 AT 1:00PM ARRIVAL TIME AT 12:30PM GIVEN TO GREGORIO
[2023-04-05 10:46] LABS: Hematocrit 26.6 % (42.0-52.0); Hemoglobin 8.3 g/dl (14.0-18.0); Mean Corpuscular HGB Conc 31.2 g/dl (31.0-36.0); Mean Corpuscular Hemoglobin 32.5 pg (27.0-33.0); Mean Corpuscular Volume 104.3 fL (80.0-98.0); Mean Platelet Volume 9.4 fL (9.4-12.4); NRBC Pct Auto 11.6 /100WBC (0.0-0.2); Platelet Count 86 X10*3/uL (160-400); Red Blood Count 2.55 X10*6/uL (4.60-5.80); Red Cell Distribution Width 19.8 % (11.0-16.0); WBC ABN SCTR FOR CBC 1
[2023-04-05 10:57] LABS: Alanine Aminotransferase 20 U/L (0-40); Albumin Level 4.1 g/dL (3.5-5.0); Alkaline Phosphatase 258 U/L (39-117); Anion Gap 18 (12-20); Aspartate Amino Transferase 19 U/L (5-37); Bilirubin Total 0.7 mg/dL (0.0-1.0); Blood Urea Nitrogen 22 mg/dL (9-16); Calcium 9.2 mg/dL (8.4-10.2); Carbon Dioxide 21 mmol/L (22-29); Chloride 107 mmol/L (96-108); Estimated Glomerular Filt Rate > 60; Glucose Random 160 mg/dL (60-115); Potassium 4.4 mmol/L (3.3-5.1); Sodium 142 mmol/L (135-145); Total Protein 6.7 g/dL (6.5-8.0)
[2023-04-05 11:26] LABS: Band Neutrophils Percent 16 % (3-5); Eosinophils Percent Manual 2 % (0-4); Lymphocytes Percent Manual 9 % (20-40); Metamyelocytes Percent 2 %; Monocytes Percent Manual 5 % (2-11); Myelocytes Percent 2 %; Neutrophils Percent Manual 64 % (45-73); Nucleated Red Blood Cells 18 /100WBC (0-0)
[2023-04-05 11:27] LABS: Macrocytosis 1+ (5-14) /OIF; Platelet Estimate DECREASED (NORMAL); Platelet Morphology Comment NORMAL; Polychromasia 2+ (3-5) /OIF; RBC Morphology NOTED
[2023-04-05 11:28] LABS: Eosinophils Absolute Manual 0.3 X10*3/uL (0.0-0.4); Lymphocytes Absolute Manual 1.3 X10*3/uL (1.2-4.9); Metamyelocytes Absolute 0.3 X10*3/uL; Monocytes Absolute Manual 0.7 X10*3/uL (0.1-1.2); Myelocytes Absolute 0.3 X10*/uL; Neutrophils Absolute Manual 11.4 X10*3/uL (2.0-8.3); White Blood Count 14.3 X10*3/uL (4.8-10.8)
--- NOTE | 2023-04-05 15:30 | MHC.HEMONC ---
Post chemo labs reviewed. No complaints at this time.
--- NOTE | 2023-04-10 13:55 | HE.ONCSEC ---
Called pt to confirm appt, lvm.
[2023-04-18 10:19] VITALS: BP 142/62; PULSE 97; RESP 14; TEMP 36.4; O2SAT 96; BMI 27.1
--- NOTE | 2023-04-18 10:26 | P.PNHO-ONC_ITS ---
Medical Summary - Medical Summary Date of Service: 04/18/23 Chief complaint: Dizziness/diplopia Primary Care Provider: Héctor Perla MD Medical Summary: DIAGNOSIS: Mr. Morgan was diagnosed with prostate cancer in 2006. THERAPY: 1. He underwent radical retropubic prostatectomy with bilateral pelvic lymphadenectomy on March 31, 2007. 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 2. He underwent ERBT postoperatively in 2007 for a rising PSA. 3. He was diagnosed with metastatic disease, bony metastasis sometime in 2011 and has been on hormonal manipulation under the care of his urologist Dr. Oreilly. Repeat imaging: Restaging with a PET scan May 14, 2014 showed mild hypermetabolic activity in the right L2 pedicle SUV of 3.4, T11, T12 and T10 SUV of 5.28, and T5, T4 and T3 vertebrae with only residual sites of disease. No additional hypermetabolic activity in the skeleton, and no lymphadenopathy. Diffuse sclerotic lesions throughout cervical, dorsal, lumbar sacral spine, iliac bones and bilateral ribs consistent with old metastatic disease. PSA on May 02, 2014, 25.6 and total testosterone less than 1 ng/dL. 4. After oncology consultation in apr 2014, patient started Denosumab (Xgeva)120 mg subcu monthly, since June 02, 2014. 5. Because of rising PSA noted in July 2014 when it reggie 61, the patient was taken off Casodex. 6. The patient started Xtandi or enzalutamide at a dose of 160 mg once daily on October 14, 2014. 7. Started Xofigo (radium 223)dose of 55 KBq/ per kilo every 4 weeks for 6 doses on 04/05/16. 8. Received palliative radiotherapy to C2 vertebral body at [facility] in June 2017 because of increasing uptake on PET scan worrisome for metastasis. 9. He started zytiga Jul 2017 to Sep 2017. Discontinued for rising PSA. 10. He then received 6 cycles Taxotere from 10/25/17 to January 2018. MSI status on tumor, showed preserved expression of DNA mismatch repair proteins indicating lack of microsatellite instability. Patient?s genetic test result , extended my Risk genetic panel testing was negative. 11. Ketoconazole for 1 month apr/2017. 12. Was seen at [facility] by Dr. Jaqueline Ayala for second opinion as well as consideration of clinical trials, was recommended clinical trial with olaparib +/- Cederinib. If he decides against trial, options would be to reconsider Zytiga, chemotherapy with Cabazitaxel +/- Carboplatinum or Apalutamide. 13. Was on Apalutamide 240 mg once a day for about 3 months. Rising PSA. 14. Switched to Zytiga 1000 mg once a day with prednisone 5 mg b.i.d. from end of December 2018. 15. Discontinued 03/14/2019 because of rising PSA. 16. Started Cabazitaxel March 2019. Treated for Legionella pneumonia after cycle 1 17. Switched to Xtandi in September 2020 18. Started back on docetaxel but added carboplatin since 05/19/2021 because of progressive disease. Olaparib was not approved by insurance carrier. BRCA mutation is negative, Homologous recombination repair gene mutation to be performed if possible. He underwent iliac crest biopsy at the site of bony lesion, however, this was negative for any malignant cells. PSMA PET-CT was performed 08/04/2021, he has PSMA avid disease besides extensive bone metastasis he has supraclavicular and chest lymph nodes. He was hoping to receive Kirsten labeled PSMA-617 for PSMA positive tumors/metastasis, unfortunately it was not commercially available although FDA approved. He was going a to [facility] where he was initially felt to be a candidate to receive this treatment. Subsequently he was told about bone marrow suppression as he received previous radium treatment. He was recommended either enrollment into a clinical trial or resuming docetaxel/carboplatin which he was on until late 2020. Interval History Interval history: Patient is here in follow-up. He is accompanied by his son today. Unfortunately, his symptoms of diplopia and blurry vision have progressed. He also reports dizziness when he stands up and balance issues. He has not had a fall. He continues to be independent and takes care of his who has Alzheimer's. He does not report any new body aches or bone pains. No chest pain or diaphoresis. He does get easily winded. He denies headaches. Review of Systems - Constitutional Reports as per HPI, Reports fatigue, Reports lack of energy, Reports malaise - Neurologic Reports no additional neurologic complaints, Denies syncope, Denies headache(s) [facility] Medical History: Medical History (Last Reviewed 04/18/23 @ 10:22 by Ирина Spence) Acquired hypothyroidism Ascending aorta dilatation COVID-19 vaccine series completed Diabetes mellitus Family history of anesthesia complication GERD without esophagitis History of chemotherapy Legionella pneumonia Non-rheumatic aortic regurgitation Overweight (BMI 25.0-29.9) Port-A-Cath in place Primary osteoarthritis of right knee 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 Mother No problems noted. Surgical History: Surgical History (Last Reviewed 04/18/23 @ 10:22 by Ирина Spence) H/O colonoscopy History of appendectomy History of left inguinal hernia repair Onset Date: ~02/2011 History of prostatectomy Onset Date: ~03/31/07 History of shoulder surgery History of total right knee replacement Hx of bilateral cataract extraction Social History: Social History (Last Reviewed 04/18/23 @ 10:22 by Ирина Spence) Living Situation History: Household Members: Significant Other Housing: House Are you a primary clinical care leader to a significant other at home: Yes Are you a primary clinical care leader to a significant other at home comment: , bedridden ,Alzheimer's, on Hospice Do you presently have visiting nurse or other home services: Yes Do you presently have visiting nurse or other home services comment: Hospice nurse and [employer] 9-1 Alcohol History Details: 1. How often do you have a drink containing alcohol?: b. Monthly or less 2. How many drinks containing alcohol do you have on a typical day when you are drinking?: a. 1 or 2 Tobacco History: Patient Tobacco Use Status: Former Tobacco user Tobacco use type: Cigarette Smoke Quit Date: e-Cigarette/Vaping Use: Never Used Second Hand Smoke Exposure: Yes Substance Use History: Use of substances other than those prescribed or required for medical reasons : No Domestic Abuse History: Have you been hit, kicked, punched, or otherwise hurt by someone within the past year? If so, by whom?: No Do you feel safe in your current relationship?: Yes Advance Directives: Advance Directives Date on File: 05/10/22 Homicidal Assessment: Do you have thoughts of harming others: None Do you have a plan to hurt others: No Plan Do you have the means to hurt others: No Nutrition Assessment: Recently lost weight without trying: No Occupation Assessmet: service: No Current occupational status: retired Home Medications and Allergies Home Medications Medication Instructions Recorded Confirmed Type denosumab 120 mg/1.7 mL (70 mg/mL) 120 mg subcut Q4W 07/28/20 04/18/23 History subcutaneous solution (Xgeva) vit C 250 mg-vit E 90 mg-zinc 40 1 tab PO QAM 12/08/21 04/18/23 History mg-copper 1 fb-yqbvbc-sacauh capsule (PreserVision AREDS-2) leuprolide acetate (6 month) 45 mg 45 mg subcut [id number] 03/31/22 04/18/23 History (6 month) subcutaneous syringe (Eligard) Allergies Allergy/AdvReac Type Severity Reaction Status Date / Time No Known Allergies Allergy Verified 04/18/23 09:59 Exam Vital signs: Vital Signs Temp 97.6 F 04/18/23 10:19 Pulse 97 04/18/23 10:19 Resp 14 04/18/23 10:19 BP 142/62 H 04/18/23 10:19 Pulse Ox 96 04/18/23 10:19 O2 Del Method Room Air 04/18/23 10:19 Intake & Output 04/17/23 04/18/23 04/18/23 18:59 06:59 18:59 Other: Weight 83.1 kg [place] Weight in Grams 53545 Weight 83.1 kg BMI result Body Mass Index 27.1 - Constitutional Present: no acute distress - Routine HEENT Exam Head: Present: normal inspection - Routine Neck Exam Present: full ROM. Absent: lymphadenopathy - Routine Respiratory Exam Present: CTAB - Routine Cardiovascular Exam Cardiovascular: Present: RRR, S1, S2 - Routine Abdominal Exam Present: soft - Routine Extremities Exam Present: full ROM, joint swelling. Absent: calf tenderness, pedal edema, tenderness - Routine Skin Exam Present: intact. Absent: cyanosis, erythema Data - Labs CBC & Chem 7: 04/18/23 11:16 04/05/23 10:27 - Imaging Radiologist's impression: ITS Impressions Chest X-Ray 07/28/20 11:50 IMPRESSION: No evidence for acute disease in the chest. Sclerotic bone disease similar to previous exams. EXAMINATION: Right shoulder x-ray CLINICAL INFORMATION: Pain COMPARISON: None. TECHNIQUE: 4 views of the right shoulder FINDINGS: Bone alignment is normal. No fracture or dislocation is seen. The glenohumeral joint is normal. There is arthritis at the acromioclavicular joint. There is evidence of diffuse sclerotic bone disease. Soft tissues are unremarkable. IMPRESSION: Sclerotic bone disease. Arthritis at the acromioclavicular joint. EXAMINATION: Right knee x-ray CLINICAL INFORMATION: Pain COMPARISON: None. TECHNIQUE: 4 views right knee FINDINGS: Bone alignment is normal. No fracture or dislocation is seen. The joint spaces are normal. There is no joint effusion. IMPRESSION: Unremarkable exam. Knee X-Ray 07/28/20 11:50 IMPRESSION: No evidence for acute disease in the chest. Sclerotic bone disease similar to previous exams. EXAMINATION: Right shoulder x-ray CLINICAL INFORMATION: Pain COMPARISON: None. TECHNIQUE: 4 views of the right shoulder FINDINGS: Bone alignment is normal. No fracture or dislocation is seen. The glenohumeral joint is normal. There is arthritis at the acromioclavicular joint. There is evidence of diffuse sclerotic bone disease. Soft tissues are unremarkable. IMPRESSION: Sclerotic bone disease. Arthritis at the acromioclavicular joint. EXAMINATION: Right knee x-ray CLINICAL INFORMATION: Pain COMPARISON: None. TECHNIQUE: 4 views right knee FINDINGS: Bone alignment is normal. No fracture or dislocation is seen. The joint spaces are normal. There is no joint effusion. IMPRESSION: Unremarkable exam. Shoulder X-Ray 07/28/20 11:50 IMPRESSION: No evidence for acute disease in the chest. Sclerotic bone disease similar to previous exams. EXAMINATION: Right shoulder x-ray CLINICAL INFORMATION: Pain COMPARISON: None. TECHNIQUE: 4 views of the right shoulder FINDINGS: Bone alignment is normal. No fracture or dislocation is seen. The glenohumeral joint is normal. There is arthritis at the acromioclavicular joint. There is evidence of diffuse sclerotic bone disease. Soft tissues are unremarkable. IMPRESSION: Sclerotic bone disease. Arthritis at the acromioclavicular joint. EXAMINATION: Right knee x-ray CLINICAL INFORMATION: Pain COMPARISON: None. TECHNIQUE: 4 views right knee FINDINGS: Bone alignment is normal. No fracture or dislocation is seen. The joint spaces are normal. There is no joint effusion. IMPRESSION: Unremarkable exam. Assessment and Plan Patient Active problem list reviewed?: Yes (1) Prostate cancer metastatic to bone Status: Chronic Assessment and plan: 1. This is a 82 year-old male with metastatic Prostate Cancer, Bone Metastases diagnosed in 2012. pMSI. BRCA 10/05 negative. He is on LHRH agonist q 6 months. On monthly denosumab. He has been on chemotherapy and different hormonal therapies from July 2014. Patient resumed docetaxel with carboplatin in January 2022 after a 5 month hiatus during which he underwent right knee replacement. He was hoping to receive Kirsten labeled PSMA-617 for PSMA positive tumors/metastasis, he was told about bone marrow suppression as he received previous radium treatment. He was recommended either enrollment into a clinical trial or resuming docetaxel/carboplatin which he was on until late 2020. He was seen by Dr. Jaqueline Ayala at [facility] 2021, he has been recommended Cabazitaxel or mitoxantrone on progression. They did discuss lutetium therapy but this would be very intense therapy since he is at risk of severe cytopenias and would need transfusion support. It would also be difficult for him to travel to [place] as his is invalid. PSMA PET-CT performed at [facility] on 10/07/2022 showed multifocal abnormal osseous uptake consistent with widespread bony metastasis. Uptake noted throughout cervical, thoracic, lumbar spine, both shoulders and scapula, multiple ribs, pelvic bones and proximal femurs. Max SUV 20.2 in the left side of sacrum. Metabolically active left axillary lymphadenopathy, metabolically active azygos node as well as small nodes in the left of mid esophagus. All the lymph nodes appear to be small.No uptake in the brain mentioned. He was on mitoxantrone 12 milligram/meter sq administered every 21 days along with prednisone 5 mg daily. Dose reduced to 75 % because of cytopenias. 2. Rght earhearing loss balance problems. 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 There was also 5 mm enhancing nodule within the left superior vermis of the left cerebellum. This was done at outside facility. He went through course of high-dose steroids. 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 He is closely followed by ENT specialist. 3. Normocytic anemia which is probably related to bone marrow involvement with his tumor. He received 2 units PRBC in November 2022. Anemia has improved and is stable. 4. Dizziness. This could be multifactorial. I will rule out brain Mets. 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 MRI of brain has been ordered. PSA continues to go up. Mitoxantrone has been on hold. Brain MRI was ordered but could not be performed as the machine was broken. He had a PSMA PET-CT at [facility] on 04/10/2023 which revealed multifocal lesions in brain with PET avidity. Increased activity in cerebellar vermis, SUV 8.3, faint foci of activity in right superior cerebral hemisphere and left cerebellar hemisphere, max SUV 9.2. He also has multiple FDG avid lesions in the bones and lymph nodes in the neck and axilla, mediastinum and abdomen. I have explained to both patient and son that treatment is no longer effective. For palliation, he will be referred for brain radiation therapy. MRI is still pending. I will start him on dexamethasone 2 mg p.o. b.i.d. for brain Mets. Transfuse 2 units PRBC to help symptoms of shortness of breath. He gets denosumab every 6 weeks. Going forward, treatment will be palliative/supportive. Follow-up in 4 weeks. - Time Spent With Patient Time Spent with Patient (in minutes): 30
--- NOTE | 2023-04-18 11:19 | MHC.HEMONC ---
Nurse was informed by Dr. Gonzalez that pt will require blood transfusion this week, his Hgb is >8.0, but pt is symptomatic. Nurse booked pt for blood transfusion x1 unit PRBC on 04/20 at 08:00, Corey was notified at [facility]. Pt had CBC and Type + Screen drawn today. Nurse also booked pt for Q6week Xgeva, next due on 05/03/23, w/ lab appt the day prior.
[2023-04-18 11:27] LABS: Hematocrit 27.2 % (42.0-52.0); Hemoglobin 8.3 g/dl (14.0-18.0); Mean Corpuscular HGB Conc 30.5 g/dl (31.0-36.0); Mean Corpuscular Hemoglobin 32.4 pg (27.0-33.0); Mean Corpuscular Volume 106.3 fL (80.0-98.0); Mean Platelet Volume 9.5 fL (9.4-12.4); Red Blood Count 2.56 X10*6/uL (4.60-5.80); Red Cell Distribution Width 19.7 % (11.0-16.0); White Blood Count 7.2 X10*3/uL (4.8-10.8)
[2023-04-18 11:32] LABS: Platelet Count 85 X10*3/uL (160-400)
[2023-04-18 11:33] LABS: NRBC Pct Auto 11.2 /100WBC (0.0-0.2)
--- NOTE | 2023-04-18 11:44 | MHC.HEMONCMA ---
Patient seen today for followup to discuss petscan done 04/11/23 at [facility], [place], labs, referal to rad onc done by sharon Mcguire TBRadha.
[2023-04-18 12:00] LABS: Band Neutrophils Percent 3 % (3-5); Basophils Abs Manual 0.1 X10*3/uL (0.0-0.2); Basophils Percent Manual 1 % (0-2); Eosinophils Absolute Manual 0.2 X10*3/uL (0.0-0.4); Eosinophils Percent Manual 3 % (0-4); Lymphocytes Absolute Manual 0.8 X10*3/uL (1.2-4.9); Lymphocytes Percent Manual 11 % (20-40); Metamyelocytes Absolute 0.4 X10*3/uL; Metamyelocytes Percent 6 %; Monocytes Absolute Manual 0.7 X10*3/uL (0.1-1.2); Monocytes Percent Manual 10 % (2-11); Neutrophils Percent Manual 66 % (45-73); Nucleated Red Blood Cells 14 /100WBC (0-0)
[2023-04-18 12:02] LABS: Hypochromasia 1+ (5-14) /OIF; Macrocytosis 2+ (15-30) /OIF; Ovalocytes 1+ (5-14) /OIF; Platelet Estimate DECREASED (NORMAL); Platelet Morphology Comment NORMAL; Polychromasia 3+ (>5) /OIF; RBC Morphology NOTED
--- NOTE | 2023-04-18 13:27 | HO.HEMONCSCH ---
Addendum entered by Gaviota Jarvis 04/18/23 15:02: [facility]SCAN BY [facility] CALLED AND BOOKED MRI FOR MondayAPRIL 20 AT 1130AM Original Note: MRI BRAIN[facility]HEAD BOOKED AT [facility] ON MondayAPRIL 24 AT 845AM PATIENT NOTIFIED (GIVEN TO GREGORIO)
--- NOTE | 2023-04-18 15:09 | MHC.HEMONC ---
Referral made to [facility] for brain mets. Notes faxed.
--- NOTE | 2023-04-18 15:39 | MHC.HEMONC ---
Pt seeing Dr Miller at [facility] on Monday04/25/23 at 9 am.
[2023-04-20 10:18] VITALS: BP 117/58; PULSE 99; RESP 16; TEMP 36.1; O2SAT 97
[2023-04-20 10:48] VITALS: BP 117/58; PULSE 99; RESP 18; TEMP 36.1
[2023-04-20 11:04] VITALS: BP 119/58; PULSE 88; RESP 18; TEMP 36.4
[2023-04-20 12:36] VITALS: BP 146/62; PULSE 80; RESP 16; TEMP 36.4
--- NOTE | 2023-04-20 13:16 | MHC.HEMONC ---
1 unit RBC tolerated well. Pt aware of next appt, discharge packet provided.
[2023-05-02 10:42] LABS: Hematocrit 32.9 % (42.0-52.0); Hemoglobin 10.5 g/dl (14.0-18.0); Mean Corpuscular HGB Conc 31.9 g/dl (31.0-36.0); Mean Corpuscular Hemoglobin 33.4 pg (27.0-33.0); Mean Corpuscular Volume 104.8 fL (80.0-98.0); Mean Platelet Volume 8.7 fL (9.4-12.4); NRBC Pct Auto 14.9 /100WBC (0.0-0.2); Platelet Count 143 X10*3/uL (160-400); Red Blood Count 3.14 X10*6/uL (4.60-5.80); Red Cell Distribution Width 18.4 % (11.0-16.0); White Blood Count 5.9 X10*3/uL (4.8-10.8)
[2023-05-02 11:06] LABS: Alanine Aminotransferase 52 U/L (0-40); Albumin Level 4.2 g/dL (3.5-5.0); Alkaline Phosphatase 272 U/L (39-117); Anion Gap 16 (12-20); Aspartate Amino Transferase 25 U/L (5-37); Band Neutrophils Percent 1 % (3-5); Bilirubin Total 0.6 mg/dL (0.0-1.0); Blood Urea Nitrogen 31 mg/dL (9-16); Calcium 9.2 mg/dL (8.4-10.2); Carbon Dioxide 23 mmol/L (22-29); Chloride 108 mmol/L (96-108); Estimated Glomerular Filt Rate > 60; Glucose Random 157 mg/dL (60-115); Lymphocytes Absolute Manual 0.9 X10*3/uL (1.2-4.9); Lymphocytes Percent Manual 15 % (20-40); Metamyelocytes Absolute 0.2 X10*3/uL; Metamyelocytes Percent 3 %; Monocytes Absolute Manual 0.6 X10*3/uL (0.1-1.2); Monocytes Percent Manual 10 % (2-11); Myelocytes Absolute 0.1 X10*/uL; Myelocytes Percent 1 %; Neutrophils Absolute Manual 4.1 X10*3/uL (2.0-8.3); Neutrophils Percent Manual 69 % (45-73); Nucleated Red Blood Cells 13 /100WBC (0-0); Potassium 4.8 mmol/L (3.3-5.1); Promyelocytes Absolute 0.1 X10*3/uL; Promyelocytes Percent 1 %; Sodium 142 mmol/L (135-145); Total Protein 6.8 g/dL (6.5-8.0)
[2023-05-02 11:07] LABS: Basophilic Stippling 1+ (0-2) /OIF; Polychromasia 2+ (3-5) /OIF; RBC Morphology NOTED
[2023-05-02 11:08] LABS: Microcytosis 1+ (5-14) /OIF; Tear Drop Cells 1+ (0-2) /OIF
[2023-05-02 11:09] LABS: Macrocytosis 1+ (5-14) /OIF; Platelet Estimate SLIGHTLY DECREASED (NORMAL); Platelet Morphology Comment NORMAL
[2023-05-03 09:59] VITALS: BP 149/67; PULSE 88; RESP 18; TEMP 36.7; O2SAT 95
--- NOTE | 2023-05-03 10:07 | MHC.HEMONC ---
xgeva given, ca 9.2. pt in very good spirts and feeling good. will start radiation next week. pt talked dr wheatley today but will have a follow up in 6 weeks with next injection. there is question if pt will still continue with xgeva now that he is on palli care
--- NOTE | 2023-06-13 09:08 | HE.ONCSEC ---
LVM reminding pt of appt on 06/14/23
[2023-06-13 10:37] LABS: Hemoglobin 9.5 g/dl (14.0-18.0); Mean Corpuscular HGB Conc 31.7 g/dl (31.0-36.0); Mean Corpuscular Hemoglobin 32.8 pg (27.0-33.0); Mean Corpuscular Volume 103.4 fL (80.0-98.0); Mean Platelet Volume 9.7 fL (9.4-12.4); Platelet Count 127 X10*3/uL (160-400); Red Cell Distribution Width 18.4 % (11.0-16.0); White Blood Count 5.2 X10*3/uL (4.8-10.8)
[2023-06-13 10:41] LABS: NRBC Pct Auto 11.1 /100WBC (0.0-0.2)
[2023-06-13 10:54] LABS: Alanine Aminotransferase 67 U/L (0-40); Albumin Level 3.8 g/dL (3.5-5.0); Alkaline Phosphatase 187 U/L (39-117); Anion Gap 15 (12-20); Aspartate Amino Transferase 22 U/L (5-37); Bilirubin Total 0.5 mg/dL (0.0-1.0); Blood Urea Nitrogen 22 mg/dL (9-16); Carbon Dioxide 24 mmol/L (22-29); Chloride 105 mmol/L (96-108); Creatinine Clr Calc Pharmacy 57.2; Estimated Glomerular Filt Rate > 60; Glucose Random 274 mg/dL (60-115); Potassium 4.6 mmol/L (3.3-5.1); Sodium 139 mmol/L (135-145); Total Protein 6.5 g/dL (6.5-8.0)
[2023-06-13 11:07] LABS: Atypical Lymph Absolute Manual 0.1 x10*3/uL; Atypical Lymphs Percent Manual 1 % (0-6); Band Neutrophils Percent 8 % (3-5); Lymphocytes Absolute Manual 0.7 X10*3/uL (1.2-4.9); Lymphocytes Percent Manual 14 % (20-40); Metamyelocytes Absolute 0.2 X10*3/uL; Metamyelocytes Percent 3 %; Monocytes Absolute Manual 0.1 X10*3/uL (0.1-1.2); Monocytes Percent Manual 2 % (2-11); Neutrophils Absolute Manual 4.2 X10*3/uL (2.0-8.3); Neutrophils Percent Manual 72 % (45-73); Nucleated Red Blood Cells 13 /100WBC (0-0)
[2023-06-13 11:08] LABS: Macrocytosis 1+ (5-14) /OIF; Platelet Estimate DECREASED (NORMAL); Platelet Morphology Comment NORMAL; Polychromasia 1+ (0-2) /OIF; RBC Morphology NOTED
[2023-06-13 11:09] LABS: Tear Drop Cells 1+ (0-2) /OIF
[2023-06-14 10:26] VITALS: BP 125/61; PULSE 96; RESP 14; TEMP 36.4; O2SAT 99; BMI 26.2
--- NOTE | 2023-06-14 10:47 | MHC.HEMONCMA ---
Patient seen today for follow up prostate ca, VSS, labs, PT/OT in home ordered and Shayla will take care of, followup TBD.
--- NOTE | 2023-06-14 12:56 | PM.HEMONCPN ---
Medical Summary - Medical Summary Date of Service: 06/14/23 Chief complaint: Follow-up Primary Care Provider: Héctor Perla MD Medical Summary: DIAGNOSIS: Mr. Morgan was diagnosed with prostate cancer in 2006. THERAPY: 1. He underwent radical retropubic prostatectomy with bilateral pelvic lymphadenectomy on March 31, 2007. 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 2. He underwent ERBT postoperatively in 2007 for a rising PSA. 3. He was diagnosed with metastatic disease, bony metastasis sometime in 2011 and has been on hormonal manipulation under the care of his urologist Dr. Oreilly. Repeat imaging: Restaging with a PET scan May 14, 2014 showed mild hypermetabolic activity in the right L2 pedicle SUV of 3.4, T11, T12 and T10 SUV of 5.28, and T5, T4 and T3 vertebrae with only residual sites of disease. No additional hypermetabolic activity in the skeleton, and no lymphadenopathy. Diffuse sclerotic lesions throughout cervical, dorsal, lumbar sacral spine, iliac bones and bilateral ribs consistent with old metastatic disease. PSA on May 02, 2014, 25.6 and total testosterone less than 1 ng/dL. 4. After oncology consultation in apr 2014, patient started Denosumab (Xgeva)120 mg subcu monthly, since June 02, 2014. 5. Because of rising PSA noted in July 2014 when it reggie 61, the patient was taken off Casodex. 6. The patient started Xtandi or enzalutamide at a dose of 160 mg once daily on October 14, 2014. 7. Started Xofigo (radium 223)dose of 55 KBq/ per kilo every 4 weeks for 6 doses on 04/05/16. 8. Received palliative radiotherapy to C2 vertebral body at [facility] in June 2017 because of increasing uptake on PET scan worrisome for metastasis. 9. He started zytiga Jul 2017 to Sep 2017. Discontinued for rising PSA. 10. He then received 6 cycles Taxotere from 10/25/17 to January 2018. MSI status on tumor, showed preserved expression of DNA mismatch repair proteins indicating lack of microsatellite instability. Patient?s genetic test result , extended my Risk genetic panel testing was negative. 11. Ketoconazole for 1 month apr/2017. 12. Was seen at [facility] by Dr. Jaqueline Kilbridge for second opinion as well as consideration of clinical trials, was recommended clinical trial with olaparib +/- Cederinib. If he decides against trial, options would be to reconsider Zytiga, chemotherapy with Cabazitaxel +/- Carboplatinum or Apalutamide. 13. Was on Apalutamide 240 mg once a day for about 3 months. Rising PSA. 14. Switched to Zytiga 1000 mg once a day with prednisone 5 mg b.i.d. from end of December 2018. 15. Discontinued 03/14/2019 because of rising PSA. 16. Started Cabazitaxel March 2019. Treated for Legionella pneumonia after cycle 1 17. Switched to Xtandi in September 2020 18. Started back on docetaxel but added carboplatin since 05/19/2021 because of progressive disease. Olaparib was not approved by insurance carrier. BRCA mutation is negative, Homologous recombination repair gene mutation to be performed if possible. He underwent iliac crest biopsy at the site of bony lesion, however, this was negative for any malignant cells. PSMA PET-CT was performed 08/04/2021, he has PSMA avid disease besides extensive bone metastasis he has supraclavicular and chest lymph nodes. He was hoping to receive Kirsten labeled PSMA-617 for PSMA positive tumors/metastasis, unfortunately it was not commercially available although FDA approved. He was going a to [facility] where he was initially felt to be a candidate to receive this treatment. Subsequently he was told about bone marrow suppression as he received previous radium treatment. He was recommended either enrollment into a clinical trial or resuming docetaxel/carboplatin which he was on until late 2020. Interval History Interval history: Patient is here in follow-up. He is doing better. He completed radiation therapy, he is not as dizzy, does not have diplopia. However he still has balance issues and weakness in his legs. He is being tapered off prednisone. He has good and bad days. Not driving anymore. He denies any fever or chills. No chest pain or shortness of breath. Review of Systems - Constitutional Reports as per HPI, Reports fatigue, Reports malaise, Denies night sweats - Cardiovascular Reports no additional cardiovascular complaints - Respiratory Reports no additional respiratory complaints - Gastrointestinal Reports no additional gastrointestinal complaints - Neurologic Reports no additional neurologic complaints, Denies syncope, Denies headache(s) PMFSH Medical History: Medical History (Last Reviewed 06/14/23 @ 10:28 by Ирина Spence) Acquired hypothyroidism Ascending aorta dilatation COVID-19 vaccine series completed Diabetes mellitus Family history of anesthesia complication GERD without esophagitis History of chemotherapy Legionella pneumonia Non-rheumatic aortic regurgitation Overweight (BMI 25.0-29.9) Port-A-Cath in place Primary osteoarthritis of right knee 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 Mother No problems noted. Surgical History: Surgical History (Last Reviewed 06/14/23 @ 10:28 by Ирина Spence) H/O colonoscopy History of appendectomy History of left inguinal hernia repair Onset Date: ~02/2011 History of prostatectomy Onset Date: ~03/31/07 History of shoulder surgery History of total right knee replacement Hx of bilateral cataract extraction Social History: Social History (Last Reviewed 06/14/23 @ 10:28 by Ирина Spence) Living Situation History: Household Members: Significant Other Housing: House Are you a primary care rep to a significant other at home: Yes Are you a primary care rep to a significant other at home comment: , bedridden ,Alzheimer's, on Hospice Do you presently have visiting nurse or other home services: Yes Do you presently have visiting nurse or other home services comment: Hospice nurse and [employer] 9-1 Alcohol History Details: 1. How often do you have a drink containing alcohol?: b. Monthly or less 2. How many drinks containing alcohol do you have on a typical day when you are drinking?: a. 1 or 2 Tobacco History: Patient Tobacco Use Status: Former Tobacco user Tobacco use type: Cigarette Smoke Quit Date: e-Cigarette/Vaping Use: Never Used Second Hand Smoke Exposure: Yes Substance Use History: Use of substances other than those prescribed or required for medical reasons: No Domestic Abuse History: Have you been hit, kicked, punched, or otherwise hurt by someone within the past year? If so, by whom?: No Do you feel safe in your current relationship?: Yes Advance Directives: Advance Directives Date on File: 05/10/22 Homicidal Assessment: Do you have thoughts of harming others: None Do you have a plan to hurt others: No Plan Do you have the means to hurt others: No Nutrition Assessment: Recently lost weight without trying: No Occupation Assessmet: service: No Current occupational status: retired Home Medications and Allergies Current Medications: Current Medications Denosumab (Denosumab 120 Mg/1.7 Ml Vial) 120 mg SUBCUT ONCE RAIMUNDO Stop: 06/14/23 23:59 Last Admin: 06/14/23 10:48 Dose: 120 mg Home Medications Medication Instructions Recorded Confirmed Type denosumab 120 mg/1.7 mL (70 mg/mL) 120 mg subcut Q4W 07/28/20 06/14/23 History subcutaneous solution (Xgeva) vit C 250 mg-vit E 90 mg-zinc 40 1 tab PO QAM 12/08/21 06/14/23 History mg-copper 1 co-[id number]-tlcxvv capsule (PreserVision AREDS-2) leuprolide acetate (6 month) 45 mg 45 mg subcut [id number] 03/31/22 06/14/23 History (6 month) subcutaneous syringe (Eligard) Allergies Allergy/AdvReac Type Severity Reaction Status Date / Time No Known Allergies Allergy Verified 05/23/23 08:38 Exam Vital signs: Vital Signs Temp 97.6 F 06/14/23 10:26 Pulse 96 06/14/23 10:26 Resp 14 06/14/23 10:26 BP 125/61 06/14/23 10:26 Pulse Ox 99 06/14/23 10:26 O2 Del Method Room Air 06/14/23 10:26 Intake & Output 06/13/23 06/14/23 06/14/23 18:59 06:59 18:59 Other: Weight 80.4 kg Weight in Grams 54319 Weight 80.4 kg BMI result Body Mass Index 26.2 - Constitutional Present: no acute distress - Routine HEENT Exam Head: Present: normal inspection - Routine Neck Exam Present: full ROM. Absent: lymphadenopathy - Routine Respiratory Exam Present: CTAB - Routine Cardiovascular Exam Cardiovascular: Present: RRR, S1, S2 - Routine Abdominal Exam Present: soft - Routine Extremities Exam Present: full ROM, joint swelling. Absent: calf tenderness, pedal edema, tenderness - Routine Skin Exam Present: intact. Absent: cyanosis, erythema Data - Labs CBC & Chem 7: 06/13/23 10:25 06/13/23 10:25 - Imaging Radiologist's impression: ITS Impressions Chest X-Ray 07/28/20 11:50 IMPRESSION: No evidence for acute disease in the chest. Sclerotic bone disease similar to previous exams. EXAMINATION: Right shoulder x-ray CLINICAL INFORMATION: Pain COMPARISON: None. TECHNIQUE: 4 views of the right shoulder FINDINGS: Bone alignment is normal. No fracture or dislocation is seen. The glenohumeral joint is normal. There is arthritis at the acromioclavicular joint. There is evidence of diffuse sclerotic bone disease. Soft tissues are unremarkable. IMPRESSION: Sclerotic bone disease. Arthritis at the acromioclavicular joint. EXAMINATION: Right knee x-ray CLINICAL INFORMATION: Pain COMPARISON: None. TECHNIQUE: 4 views right knee FINDINGS: Bone alignment is normal. No fracture or dislocation is seen. The joint spaces are normal. There is no joint effusion. IMPRESSION: Unremarkable exam. Knee X-Ray 07/28/20 11:50 IMPRESSION: No evidence for acute disease in the chest. Sclerotic bone disease similar to previous exams. EXAMINATION: Right shoulder x-ray CLINICAL INFORMATION: Pain COMPARISON: None. TECHNIQUE: 4 views of the right shoulder FINDINGS: Bone alignment is normal. No fracture or dislocation is seen. The glenohumeral joint is normal. There is arthritis at the acromioclavicular joint. There is evidence of diffuse sclerotic bone disease. Soft tissues are unremarkable. IMPRESSION: Sclerotic bone disease. Arthritis at the acromioclavicular joint. EXAMINATION: Right knee x-ray CLINICAL INFORMATION: Pain COMPARISON: None. TECHNIQUE: 4 views right knee FINDINGS: Bone alignment is normal. No fracture or dislocation is seen. The joint spaces are normal. There is no joint effusion. IMPRESSION: Unremarkable exam. Shoulder X-Ray 07/28/20 11:50 IMPRESSION: No evidence for acute disease in the chest. Sclerotic bone disease similar to previous exams. EXAMINATION: Right shoulder x-ray CLINICAL INFORMATION: Pain COMPARISON: None. TECHNIQUE: 4 views of the right shoulder FINDINGS: Bone alignment is normal. No fracture or dislocation is seen. The glenohumeral joint is normal. There is arthritis at the acromioclavicular joint. There is evidence of diffuse sclerotic bone disease. Soft tissues are unremarkable. IMPRESSION: Sclerotic bone disease. Arthritis at the acromioclavicular joint. EXAMINATION: Right knee x-ray CLINICAL INFORMATION: Pain COMPARISON: None. TECHNIQUE: 4 views right knee FINDINGS: Bone alignment is normal. No fracture or dislocation is seen. The joint spaces are normal. There is no joint effusion. IMPRESSION: Unremarkable exam. Assessment and Plan Patient Active problem list reviewed?: Yes (1) Prostate cancer metastatic to bone Status: Chronic Assessment and plan: 1. This is a 82 year-old male with metastatic Prostate Cancer, Bone Metastases diagnosed in 2012. pMSI. BRCA 10/05 negative. He is on LHRH agonist q 6 months. On monthly denosumab. He has been on chemotherapy and different hormonal therapies from July 2014. Patient resumed docetaxel with carboplatin in January 2022 after a 5 month hiatus during which he underwent right knee replacement. He was hoping to receive Kirsten labeled PSMA-617 for PSMA positive tumors/metastasis, he was told about bone marrow suppression as he received previous radium treatment. He was recommended either enrollment into a clinical trial or resuming docetaxel/carboplatin which he was on until late 2020. He was seen by Dr. Jaqueline Ayala at [facility] 2021, he has been recommended Cabazitaxel or mitoxantrone on progression. They did discuss lutetium therapy but this would be very intense therapy since he is at risk of severe cytopenias and would need transfusion support. It would also be difficult for him to travel to [place] as his is invalid. PSMA PET-CT performed at [facility] on 10/07/2022 showed multifocal abnormal osseous uptake consistent with widespread bony metastasis. Uptake noted throughout cervical, thoracic, lumbar spine, both shoulders and scapula, multiple ribs, pelvic bones and proximal femurs. Max SUV 20.2 in the left side of sacrum. Metabolically active left axillary lymphadenopathy, metabolically active azygos node as well as small nodes in the left of mid esophagus. All the lymph nodes appear to be small.No uptake in the brain mentioned. He was on mitoxantrone 12 milligram/meter sq administered every 21 days along with prednisone 5 mg daily until March 2023. Dose reduced to 75 % because of cytopenias. He has had progression on mitoxantrone, all systemic treatments except denosumab have been stopped. 2. Right earhearing loss balance problems. 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 There was also 5 mm enhancing nodule within the left superior vermis of the left cerebellum. This was done at outside facility. He went through course of high-dose steroids. 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 He is followed by ENT specialist. 3. Normocytic anemia which is probably related to bone marrow involvement with his tumor. He receives intermittent blood transfusion. 4. Brain metastasis. Multiple enhancing cerebellar lesions were found on brain MRI performed on 04/24/2023. He completed palliative whole-brain RT at [facility]. Decadron is being tapered down. 5. Palliative care referral. He reports weakness in his legs and difficulty walking. Home PT/OT evaluation and treatment has been ordered. I discussed MOLST form with the patient. He does not yet want hospice services. Follow-up in 4 weeks. - Time Spent With Patient Time Spent with Patient (in minutes): 20
--- NOTE | 2023-06-14 15:34 | MHC.HEMONC ---
Denosumab 120mg sc given right arm and toletated well. Calcium 9.0. Next injection scheduled for 6weeks.
--- NOTE | 2023-06-15 12:07 | MHC.HEMONCMA ---
Chen from [facility] [id number] called looking for clarification of orders sent over by Shayla ([email or web address]). Tried to assist but more information is needed, she will reach out to Shayla in am.
--- NOTE | 2023-06-16 11:49 | MHC.HEMONC ---
Triage line- Chen([facility]-Ext [phone]) called regarding the referral to the [facility]. Per Chen, pt might be seen either Monday or Monday next week. Dr Gonzalez okayed the visit. Healthcare Proxy faxed to [facility].
[2023-07-27 10:58] VITALS: BP 112/56; PULSE 99; RESP 18; TEMP 36.4; O2SAT 100
--- NOTE | 2023-07-27 11:10 | MHC.HEMONC ---
Here for every 6 weeks denosumab and port flush. Ca=8.[address] Gonzalez. Ok to give xgeva and he will increase calcium supplementation to 600mg three times a day. [address] up [address] Gonzalez booked at her request. Port flushed with saline and heparin with good blood return. Calendar provided.
[2023-08-11 11:39] VITALS: BP 134/61; PULSE 95; RESP 15; TEMP 36.3; O2SAT 97; BMI 25.1
--- NOTE | 2023-08-11 11:57 | MHC.HEMONCMA ---
Patient seen today for follow up prostate /bone CA, no followup needed will call us.
--- NOTE | 2023-08-28 13:54 | MHC.HEMONC ---
Triage - Pt called to request a refill of Meclizine. Pt is out of meds. Msg sent to Dr Gonzalez.
--- NOTE | 2023-11-15 17:24 | MHC.HEMONC ---
Addendum entered by Jama Gipson RN 11/22/23 10:59: Nurse received t/c from Chen at [facility], who reported pt's son Pro told her that pt's [facility], cannot say when it will be delivered, but that [facility] [place] does have it in stock. Nurse called this [facility] and confirmed Marinol is available, Dr. Basurto sent new e-scrip to [facility] on [facility] in [place], nurse called and confirmed it was available for garbage pick up man, notified pt's son by phone. Original Note: Nurse received fax request from [facility] for new scrip for dronabinol 5 mg PO QHS. Nurse gave request to covering provider Dr. Basurto, who sent digital scrip to [facility] on [facility] in [place].
--- NOTE | 2023-12-01 14:09 | MHC.HEMONC ---
I received a voicemail from pt son, Pro. He expressed concern because [facility] is discharging his father because he has no skilled need . He wanted to know if a letter could be written that addresses medical necessity for services. I called Karen RN from [facility] and discussed his status. She is very familiar with patient. 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 He is not requiring medication education. He is not ready for Hospice care because he would like transfusions if needed , according to his son. After our discussion, Karen agreed to [facility] until he sees Dr Gonzalez a week from Monday to discuss plan of care going forward. I left message for his son and invited him to call me back if he would like to talk.
[2023-12-12 15:30] VITALS: BP 128/78; PULSE 89; TEMP 36.6; O2SAT 100
[2023-12-12 15:31] LABS: Hematocrit 30.1 % (42.0-52.0); Hemoglobin 9.6 g/dl (14.0-18.0); Mean Corpuscular HGB Conc 31.9 g/dl (31.0-36.0); Mean Corpuscular Hemoglobin 31.2 pg (27.0-33.0); Mean Corpuscular Volume 97.7 fL (80.0-98.0); Mean Platelet Volume 10.2 fL (9.4-12.4); NRBC Pct Auto 17.8 /100WBC (0.0-0.2); Platelet Count 54 X10*3/uL (160-400); Red Blood Count 3.08 X10*6/uL (4.60-5.80); Red Cell Distribution Width 19.3 % (11.0-16.0); White Blood Count 6.4 X10*3/uL (4.8-10.8)
--- NOTE | 2023-12-12 15:57 | P.PNHO-ONC_ITS ---
Medical Summary - Medical Summary Date of Service: 12/12/23 Chief complaint: Follow-up Primary Care Provider: Héctor Perla MD Medical Summary: DIAGNOSIS: Mr. Morgan was diagnosed with prostate cancer in 2006. THERAPY: 1. He underwent radical retropubic prostatectomy with bilateral pelvic lymphadenectomy on March 31, 2007. He was staged as a T3a [place]'s 4 + 3 prostate adenocarcinoma. 2. He underwent ERBT postoperatively in 2007 for a rising PSA. 3. He was diagnosed with metastatic disease, bony metastasis sometime in 2011 and has been on hormonal manipulation under the care of his urologist Dr. Oreilly. Repeat imaging: Restaging with a PET scan May 14, 2014 showed mild hypermetabolic activity in the right L2 pedicle SUV of 3.4, T11, T12 and T10 SUV of 5.28, and T5, T4 and T3 vertebrae with only residual sites of disease. No additional hypermetabolic activity in the skeleton, and no lymphadenopathy. Diffuse sclerotic lesions throughout cervical, dorsal, lumbar sacral spine, iliac bones and bilateral ribs consistent with old metastatic disease. PSA on May 02, 2014, 25.6 and total testosterone less than 1 ng/dL. 4. After oncology consultation in apr 2014, patient started Denosumab (Xgeva)120 mg subcu monthly, since June 02, 2014. 5. Because of rising PSA noted in July 2014 when it reggie 61, the patient was taken off Casodex. 6. The patient started Xtandi or enzalutamide at a dose of 160 mg once daily on October 14, 2014. 7. Started Xofigo (radium 223)dose of 55 KBq/ per kilo every 4 weeks for 6 doses on 04/05/16. 8. Received palliative radiotherapy to C2 vertebral body at [facility] in June 2017 because of increasing uptake on PET scan worrisome for metastasis. 9. He started zytiga Jul 2017 to Sep 2017. Discontinued for rising PSA. 10. He then received 6 cycles Taxotere from 10/25/17 to January 2018. MSI status on tumor, showed preserved expression of DNA mismatch repair proteins indicating lack of microsatellite instability. Patient?s genetic test result , extended my Risk genetic panel testing was negative. 11. Ketoconazole for 1 month apr/2017. 12. Was seen at [facility] by Dr. Jaqueline Kilbridge for second opinion as well as consideration of clinical trials, was recommended clinical trial with olaparib +/- Cederinib. If he decides against trial, options would be to reconsider Zytiga, chemotherapy with Cabazitaxel +/- Carboplatinum or Apalutamide. 13. Was on Apalutamide 240 mg once a day for about 3 months. Rising PSA. 14. Switched to Zytiga 1000 mg once a day with prednisone 5 mg b.i.d. from end of December 2018. 15. Discontinued 03/14/2019 because of rising PSA. 16. Started Cabazitaxel March 2019. Treated for Legionella pneumonia after cycle 1 17. Switched to Xtandi in September 2020 18. Started back on docetaxel but added carboplatin since 05/19/2021 because of progressive disease. Olaparib was not approved by insurance carrier. BRCA mutation is negative, Homologous recombination repair gene mutation to be performed if possible. He underwent iliac crest biopsy at the site of bony lesion, however, this was negative for any malignant cells. PSMA PET-CT was performed 08/04/2021, he has PSMA avid disease besides extensive bone metastasis he has supraclavicular and chest lymph nodes. He was hoping to receive Kirsten labeled PSMA-617 for PSMA positive tumors/metastasis, unfortunately it was not commercially available although FDA approved. He was going a to [facility] where he was initially felt to be a candidate to receive this treatment. Subsequently he was told about bone marrow suppression as he received previous radium treatment. He was recommended either enrollment into a clinical trial or resuming docetaxel/carboplatin which he was on until late 2020. Interval History Interval history: Patient is here in follow-up. He is accompanied by his son today. He has been getting progressively weaker. He has good and bad days. His pain is not debilitating but he can feel it in his bones, he barely uses Tylenol. He has been gradually losing weight. He is concerned that he will no longer have VNA services. 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 Mother No problems noted. Surgical History: Surgical History (Last Reviewed 12/12/23 @ 15:24 by Francisco Gardner) H/O colonoscopy History of appendectomy History of left inguinal hernia repair Onset Date: ~02/2011 History of prostatectomy Onset Date: ~03/31/07 History of shoulder surgery History of total right knee replacement Hx of bilateral cataract extraction Social History: Social History (Last Reviewed 12/12/23 @ 15:24 by Francisco Gardner) Living Situation History: Household Members: Spouse Housing: House Are you a primary caretaker resort to a significant other at home: Yes Are you a primary caretaker resort to a significant other at home comment: , bedridden ,Alzheimer's, on Hospice Do you presently have visiting nurse or other home services: Yes Do you presently have visiting nurse or other home services comment: [facility], palliative care Alcohol History Details: 1. How often do you have a drink containing alcohol?: b. Monthly or less 2. How many drinks containing alcohol do you have on a typical day when you are drinking?: a. 1 or 2 Tobacco History: Patient Tobacco Use Status: Former Tobacco user Tobacco use type: Cigarette Smoke Quit Date: e-Cigarette/Vaping Use: Never Used Second Hand Smoke Exposure: Yes Substance Use History: Use of substances other than those prescribed or required for medical reasons : No Domestic Abuse History: Have you been hit, kicked, punched, or otherwise hurt by someone within the past year? If so, by whom?: No Do you feel safe in your current relationship?: Yes Advance Directives: Advance Directives Date on File: 05/10/22 Homicidal Assessment: Do you have thoughts of harming others: None Do you have a plan to hurt others: No Plan Do you have the means to hurt others: No Nutrition Assessment: Recently lost weight without trying: No Occupation Assessmet: service: No Current occupational status: retired Home Medications and Allergies Home Medications Medication Instructions Recorded Confirmed Type vit C 250 mg-vit E 90 mg-zinc 40 1 tab PO QAM 12/08/21 12/12/23 History mg-copper 1 yo-oxgpmv-whqcqe capsule (PreserVision AREDS-2) cholecalciferol (vitamin D3) 50 50 mcg PO DAILY 08/22/23 12/12/23 History mcg (2,000 unit) capsule levothyroxine 88 mcg tablet 88 mcg PO DAILY@0600 09/10/23 12/12/23 History Allergies Allergy/AdvReac Type Severity Reaction Status Date / Time No Known Allergies Allergy Verified 12/12/23 15:24 Exam Vital signs: Vital Signs Temp 97.8 F 12/12/23 15:30 Pulse 89 12/12/23 15:30 Resp 15 08/11/23 11:39 BP 128/78 12/12/23 15:30 Pulse Ox 100 12/12/23 15:30 O2 Del Method Room Air 12/12/23 15:30 Weight 77 kg BMI result Body Mass Index 25.1 - Constitutional Present: no acute distress - Routine HEENT Exam Head: Present: normal inspection - Routine Neck Exam Present: full ROM. Absent: lymphadenopathy - Routine Respiratory Exam Present: CTAB - Routine Cardiovascular Exam Cardiovascular: Present: RRR, S1, S2 - Routine Abdominal Exam Present: soft - Routine Extremities Exam Present: full ROM, joint swelling. Absent: calf tenderness, pedal edema, tenderness - Routine Skin Exam Present: intact. Absent: cyanosis, erythema Data - Labs CBC & Chem 7: 12/12/23 15:20 06/13/23 10:25 - Imaging Radiologist's impression: ITS Impressions Chest X-Ray 07/28/20 11:50 IMPRESSION: No evidence for acute disease in the chest. Sclerotic bone disease similar to previous exams. EXAMINATION: Right shoulder x-ray CLINICAL INFORMATION: Pain COMPARISON: None. TECHNIQUE: 4 views of the right shoulder FINDINGS: Bone alignment is normal. No fracture or dislocation is seen. The glenohumeral joint is normal. There is arthritis at the acromioclavicular joint. There is evidence of diffuse sclerotic bone disease. Soft tissues are unremarkable. IMPRESSION: Sclerotic bone disease. Arthritis at the acromioclavicular joint. EXAMINATION: Right knee x-ray CLINICAL INFORMATION: Pain COMPARISON: None. TECHNIQUE: 4 views right knee FINDINGS: Bone alignment is normal. No fracture or dislocation is seen. The joint spaces are normal. There is no joint effusion. IMPRESSION: Unremarkable exam. Knee X-Ray 07/28/20 11:50 IMPRESSION: No evidence for acute disease in the chest. Sclerotic bone disease similar to previous exams. EXAMINATION: Right shoulder x-ray CLINICAL INFORMATION: Pain COMPARISON: None. TECHNIQUE: 4 views of the right shoulder FINDINGS: Bone alignment is normal. No fracture or dislocation is seen. The glenohumeral joint is normal. There is arthritis at the acromioclavicular joint. There is evidence of diffuse sclerotic bone disease. Soft tissues are unremarkable. IMPRESSION: Sclerotic bone disease. Arthritis at the acromioclavicular joint. EXAMINATION: Right knee x-ray CLINICAL INFORMATION: Pain COMPARISON: None. TECHNIQUE: 4 views right knee FINDINGS: Bone alignment is normal. No fracture or dislocation is seen. The joint spaces are normal. There is no joint effusion. IMPRESSION: Unremarkable exam. Shoulder X-Ray 07/28/20 11:50 IMPRESSION: No evidence for acute disease in the chest. Sclerotic bone disease similar to previous exams. EXAMINATION: Right shoulder x-ray CLINICAL INFORMATION: Pain COMPARISON: None. TECHNIQUE: 4 views of the right shoulder FINDINGS: Bone alignment is normal. No fracture or dislocation is seen. The glenohumeral joint is normal. There is arthritis at the acromioclavicular joint. There is evidence of diffuse sclerotic bone disease. Soft tissues are unremarkable. IMPRESSION: Sclerotic bone disease. Arthritis at the acromioclavicular joint. EXAMINATION: Right knee x-ray CLINICAL INFORMATION: Pain COMPARISON: None. TECHNIQUE: 4 views right knee FINDINGS: Bone alignment is normal. No fracture or dislocation is seen. The joint spaces are normal. There is no joint effusion. IMPRESSION: Unremarkable exam. Assessment and Plan Patient Active problem list reviewed?: Yes (1) Prostate cancer metastatic to bone Status: Chronic Assessment and plan: 1. This is a 82 year-old male with metastatic Prostate Cancer, Bone Metastases diagnosed in 2012. pMSI. BRCA 10/05 negative. He is on LHRH agonist q 6 months. On monthly denosumab. He has been on chemotherapy and different hormonal therapies from July 2014. Patient resumed docetaxel with carboplatin in January 2022 after a 5 month hiatus during which he underwent right knee replacement. He was hoping to receive Kirsten labeled PSMA-617 for PSMA positive tumors/metastasis, he was told about bone marrow suppression as he received previous radium treatment. He was recommended either enrollment into a clinical trial or resuming docetaxel/carboplatin which he was on until late 2020. He was seen by Dr. Jaqueline Ayala at [facility] 2021, he has been recommended Cabazitaxel or mitoxantrone on progression. They did discuss lutetium therapy but this would be very intense therapy since he is at risk of severe cytopenias and would need transfusion support. It would also be difficult for him to travel to [place] as his is invalid. PSMA PET-CT performed at [facility] on 10/07/2022 showed multifocal abnormal osseous uptake consistent with widespread bony metastasis. Uptake noted throughout cervical, thoracic, lumbar spine, both shoulders and scapula, multiple ribs, pelvic bones and proximal femurs. Max SUV 20.2 in the left side of sacrum. Metabolically active left axillary lymphadenopathy, metabolically active azygos node as well as small nodes in the left of mid esophagus. All the lymph nodes appear to be small.No uptake in the brain mentioned. He was on mitoxantrone 12 milligram/meter sq administered every 21 days along with prednisone 5 mg daily until March 2023. Dose reduced to 75 % because of cytopenias. He has had progression on mitoxantrone, all systemic treatments except denosumab have been stopped. 2. Right earhearing loss balance problems. 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 3. Brain metastasis. Multiple enhancing cerebellar lesions were found on brain MRI performed on 04/24/2023. He completed palliative whole-brain RT at [facility]. 4. Disposition. He wants to remain full code but would like to avail either VNA or hospice services. He was also concerned about need for blood transfusion. I have explained to him that he has not needed blood transfusions since his COVID- 19 infection in August and prior to that he required blood transfusion when he was on chemotherapy. Follow-up in 8 weeks. - Time Spent With Patient Time Spent with Patient (in minutes): 45
[2023-12-12 16:04] LABS: Band Neutrophils Percent 7 % (3-5); Basophils Abs Manual 0.1 X10*3/uL (0.0-0.2); Basophils Percent Manual 2 % (0-2); Eosinophils Absolute Manual 0.3 X10*3/uL (0.0-0.4); Eosinophils Percent Manual 4 % (0-4); Lymphocytes Absolute Manual 1.9 X10*3/uL (1.2-4.9); Lymphocytes Percent Manual 29 % (20-40); Monocytes Absolute Manual 0.9 X10*3/uL (0.1-1.2); Monocytes Percent Manual 14 % (2-11); Neutrophils Absolute Manual 3.1 X10*3/uL (2.0-8.3); Neutrophils Percent Manual 41 % (45-73); Nucleated Red Blood Cells 29 /100WBC (0-0); Promyelocytes Absolute 0.2 X10*3/uL; Promyelocytes Percent 3 %
[2023-12-12 16:05] LABS: Basophilic Stippling 1+ (0-2) /OIF; Macrocytosis 1+ (5-14) /OIF; Microcytosis 1+ (5-14) /OIF; Platelet Estimate DECREASED (NORMAL); Platelet Morphology Comment NORMAL; Polychromasia 2+ (3-5) /OIF; RBC Morphology NOTED; Smudge Cells PRESENT; Spherocytes 2+ (3-5) /OIF
--- NOTE | 2023-12-12 16:51 | MHC.HEMONCMA ---
pt was seen today for protate cancer f/u. vss,labs. pt will f/u with provider in 2 months.
--- NOTE | 2023-12-12 17:42 | MHC.HEMONC ---
Pt was in for port flush, labs were drawn peripherally at main lab, pt met w/ Dr. Gonzalez for f/u. Nurse accessed pt's R chest implanted port in sterile procedure, flushed w/ NS, found positive blood return, then flushed w/ heparin 500 units before deaccessing. Pt was given calendar, next port flush booked in 8 weeks.
--- NOTE | 2023-12-13 09:30 | MHC.HEMONC ---
Hospice referral made (Nixon haines) with it being clear that he filled out MOLST yesterday and does not wish to be DNR/DNI. I spoke with Kerrie from [facility] yesterday and this is acceptable.
== END 2024-01-20 | disposition home or self-care (01) ==
LOC: HO.ONC 15:40
PROVIDERS: PCP Internal Medicine; Visit Provider Internal Medicine
DX: C61 Malignant neoplasm of prostate (principal); C79.51 Secondary malignant neoplasm of bone; C79.31 Secondary malignant neoplasm of brain; D64.9 Anemia, unspecified; H91.91 Unspecified hearing loss, right ear; Z79.899 Other long term (current) drug therapy; Z96.651 Presence of right artificial knee joint; Z92.3 Personal history of irradiation
CPT/HCPCS: 36415; 36430; 36591; 71046; 73030; 73564; 80048; 80053; 80061; 84153; 84402; 84403; 85007; 85025; 85027; 86850; 86900; 86901; 86923; 96361; 96366; 96367; 96372; 96375; 96377; 96413; 96415; 96417; 99212; 99213; 99214; 99215; J0897; J1100; J1453; J1642; J2405; J2505; J2506; J9043; J9045; J9171; J9217; J9293; P9016; Q0163